=== PATIENT | male | born 1945 | race Caucasian/White ===

== ENCOUNTER 2021-11-08 10:19 | Outpatient (RCR) | payer MEDICARE, SELFPAY ==
--- OUTSIDE RECORDS SUMMARY | 2021-10-25 11:02 | XMS_ITS | Encounter Summary ---
:1945 Author Organization [facility] [place] [address] Care Team Providers Name Role Phone Jesusita Law MD Primary Care Provider [phone] Encounter Details Date Type Department Care Team Description 10/22/2021 Hospital Encounter XRay at [facility] [place] Dawson Coronary artery [address] [place] [address] Dr Murali MD disease involving [facility] [id number] [place] unstable angina [phone] CARDIOTHORACIC pectoris, SURGERY unspecified vessel [place], [place] or lesion type [address] Social History Tobacco Use Types Packs/Day Years Used Date Former Smoker Cigarettes Quit: 06/11/18 93 Smokeless Tobacco: Former User Q uit: 1970 Comments: quit in 1992 Alcohol Use Standard Drinks/Week Comments No 0 (1 standard drink = 0.6 oz pure alcoho l) QUIT IN 1978 Alcohol Habits Answer Date Recorded How often do you have a drink containing alcohol? Not asked How many drinks containing alcohol do you have on a Not aske d typical day when you are drinking? How often do you have six or more drinks on one occasion? No t asked Comment: QUIT IN 197809/26/2021 Sex Assigned at Date Recorded Not on file documented as of this encounter Medications at Time of Discharge Medication Sig Dispensed Refills Start Date End Date furosemide (Lasix) 20 mg Take 20 mg by mouth 2 0 10/21/2021 Tablet times daily. nitroGLYcerin Nitrostat 0.4 mg sublingual tablet 0 (Nitrostat) 0.[address] 1 tablet by sublingual route as needed. Tablet, Sublingual potassium chloride SA TAKE 2 TABLETS BY 0 022 (Klor-con) 10 mEq Tab MOUTH ONCE DAILY FOR Sust.Rel. POTASSIUM Particle/Crystal aspirin 81 mg Tablet, Take 81 mg by mouth 30 tablet 5 10/0404/02/2022 Chewable daily for 180 days. metoprolol tartrate Take 1 tablet by 90 tablet 2 10/03/2021 01/01/2022 (Lopressor) 50 mg Tablet mouth every 8 hours for 90 days. warfarin (Coumadin) 1 mg Take 1-5 tablets by 0 Tablet mouth daily. Take as instructed by your provider albuteroL 90 Inhale 1 puff into 0 mcg/actuation HFA the lungs as needed Aerosol Inhaler for Cough. triamcinolone (NASACORT 1 spray by Nasal 0 or NASACORT OTC) 55 mcg route daily. 55 mcg Aerosol, Bergoo spray 1 spray into both nostrils once a day as needed for nasal congestion acetaminophen (Tylenol) Take 500 mg by mouth 0 500 mg Tablet as needed for Pain. Take 1-2 tablet by mouth every 6 hours prn for aches Mometasone-Formoterol Inhale 2 puffs into 0 (Dulera) 200-5 the lungs 2 times mcg/actuation HFA daily. Aerosol Inhaler aclidinium bromide Inhale 400 mcg into 0 (Tudorza Pressair) 400 the lungs 2 times mcg/actuation Aerosol daily. Powdr Breath Activated metFORMIN XR (Glucophage Take 1,000 mg by 0 XR) 500 mg Tablet mouth 2 times daily. Sustained Release 24 hr tamsulosin (Flomax) 0.4 TAKE 1 CAPSULE BY 0 12/14 mg Capsule MOUTH TWICE DAILY gabapentin (Neurontin) Take 200 mg by mouth 0 04/2019 100 mg Capsule nightly as needed. gemfibrozil (LOPID) 600 Take 300 mg by mouth 0 mg Tablet 2 times daily. levothyroxine Take 125 mcg by mouth 0 (Synthroid) 100 mcg daily. Tablet pravastatin (PRAVACHOL) Take 80 mg by mouth 0 80 mg Tablet nightly. documented as of this encounter Plan of Treatment Upcoming Encounters Date Type Specialty Care Team Description 11/05/2021 Appointment Radiology 11/05/2021 Office Visit Cardiac Surgery Abdon Dawson MD [facility] [place], [place] [address] (Wo rk) documented as of this encounter Procedures Procedure Name Priority Date/Time Associated Diagnosis Comme nts XR CHEST PA AND Routine 10/22/2021 12:56 PM Coronary artery Re sults for this LATERAL EDT disease involving procedure are in augustine heart with the result s unstable angina section. pectoris, unspecified vessel or lesion type documented in this encounter Results XR Chest PA & Lateral (Generic) (10/22/2021 12:56 PM EDT) Anatomical Region Laterality Modality Chest N/A Digital Radiography Specimen (Source) Anatomical Location Collection Method / Collectio n Time Received Time / Laterality Volume Impressions 10/22/2021 3:37 PM EDT 1. ??Resolution of trace left pleural effusion. 2. ??No acute cardiopulmonary process. I have personally reviewed the image(s) and the resident's interpretation and agree with the findings, Marilin Rocha MD at 10/22/2021 3:37 PM Thank you for letting us participate in the care of this patient. ??If you are a health care provider and have any questi ons regarding this report, please contact the number below. ??For patients who have questions please contact the health child care development specialist that requested your imaging first. ? Narrative 10/22/2021 3:37 PM EDT EXAMINATION: XR CHEST PA AND LATERAL (GENERIC) CLINICAL HISTORY: s/p cabg TECHNIQUE: PA and lateral views of the chest, 2 celia ges COMPARISON: Chest radiograph 09/30/2021 FINDINGS: Intact median sternotomy cables. Surgica l clips project within the mediastinum. Left chest wall pulse generator with 2 i ntact leads in unchanged position within the right atrium and right ventricle. The cardiac, mediastinal, and hilar cont ours are normal. No pulmonary edema. No focal airspace opacities. No pleural eff usion. No pneumothorax. No displaced rib fractures. Procedure Note Marilin Rocha MD - 10/22/2021 EXAMINATION: XR CHEST PA AND LATERAL ([facility]) CLINICAL HISTORY: s/p cabg TECHNIQUE: PA and lateral views of the chest, 2 celia ges COMPARISON: Chest radiograph 09/30/2021 FINDINGS: Intact median sternotomy cables. Surgica l clips project within the mediastinum. Left chest wall pulse generator with 2 i ntact leads in unchanged position within the right atrium and right ventricle. The cardiac, mediastinal, and hilar cont ours are normal. No pulmonary edema. No focal airspace opacities. No pleural eff usion. No pneumothorax. No displaced rib fractures. IMPRESSION 1. Resolution of trace left pleural effu dago. 2. No acute cardiopulmonary process. I have personally reviewed the image(s) and the resident's interpretation and agree with the findings, Marilin Rocha MD at 10/22/2021 3:37 PM Thank you for letting us participate in the care of this patient. If you are a health care provider and have any questi ons regarding this report, please contact the number below. For patients w ho have questions please contact the health child care development specialist that requested your imaging first. 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
--- OUTSIDE RECORDS SUMMARY | 2021-10-25 11:02 | XMS_ITS | Encounter Summary ---
:1945 Author Organization [facility] [place] [address] Care Team Providers Name Role Phone Jesusita Law MD Primary Care Provider [phone] Reason for Referral Consultation (Routine) - Closed Specialty Diagnoses / Procedures Referred By Contact Refer red To Contact Diagnoses S/P CABG x 4 Abdon Arreguin MD Cardiac Rehab, [facility] CARDIOTHORACIC SURGE RY [address] [place], [place] [id number] [place] [id number] Fax: Referral ID Status Reason Start Date Expiration Date Visits V isits Requested Authorized [id number] Closed Consult, 10/03/2021 04/01/2022 36 36 Test & Treat Diagnostic Test (Routine) - Authorized Specialty Diagnoses / Procedures Referred By Contact Refer red To Contact Diagnoses Arterial embolism of left leg Sheila Thakkar, [facility] Vascular Lab 3v Procedures TONEY, legs, multiple levels [facility] [place] [place] [address] [place] [address] Referral ID Status Reason Start Expiration Visits Visits Date Date Requested Authorized [id number] Authorized Specialty 10/01/2021 10/01/2022 1 1 Service Requested ome Health Care (Routine) - Authorized Specialty Diagnoses / Procedures Referred By Contact Refer red To Contact Diagnoses S/P CABG x 4 Abdon Arreguin MD [facility] CARDIOTHORACIC SURGE RY [address] [place] [address] [place] [address] Fax: Referral ID Status Reason Start Date Expiration Visits Visits Date Requested Authorized [id number] Authorized Consult, 10/03/2021 04/01/2022 999 999 Test & Treat Reason for Visit Auth/Cert Specialty Diagnoses / Procedures Referred By Contact Refer red To Contact Diagnoses Coronary artery disease involving la posta heart with unstable angina pectoris, unspecified vessel or lesion type cad Abdon Arreguin MD [facility] Procedures PRO CABG, ARTERIAL, SINGLE PRO CABG, ARTERY-VEIN, THREE PRO ENDOSCOPY W/VIDEO-ASST VEIN HARVEST, CABG @CABG, USING ARTERIAL GRAFT;SINGLE ARTERIAL GRAFT (WRVU 33.75) @CABG; 3 VENOUS GRAFTS & ARTERIAL GRAFT (WRVU 10.49) [facility] ENDOSCOPIC HARVEST VEIN(S) FOR CABG (WRV U 0.31) [place] [address] Referral ID Status Reason Start Date Expiration Date Visits Requ ested Visits Authorized [id number] 1 1 Encounter Details Date Type Department Care Team Description 09/27/2021 - Hospital Encounter Cardiac Special Abdon Arreguin ronary artery disease involving la posta heart with unstable angina pectoris, unspecified vessel or lesion type; 10/03/2021 Care Unit Eveline Carrion MD S/P CABG x 4; [facility] (paro xysmal atrial fibrillation); Hospital CENTER Arterial embolism of left leg [facility] [address] [phone] Social History Tobacco Use Types Packs/Day Years [...] on file documented as of this encounter Last Filed Vital Signs Vital Sign Reading Time Taken Comments Blood Pressure 123/68 10/03/2021 2:11 PM EDT Pulse 98 10/03/2021 2:11 PM EDT Temperature 36.7 ??C (98.1 ??F) 10/03/2021 7:19 AM EDT Respiratory Rate 19 10/03/2021 10:53 AM EDT Oxygen Saturation 96% 10/03/2021 10:53 AM EDT Inhaled Oxygen Concentration - - Weight 114.7 kg (252 lb 13.9 oz) 10/03/2021 2:25 AM EDT Height 170.2 cm (5' 7) 09/27/2021 11:25 AM EDT Body Mass Index 39.6 09/27/2021 11:25 AM EDT documented in this encounter Discharge Summaries Leilani Be PA - 10/03/2021 3:24 PM EDT Inpatient - Discharge Summary Patient Name: Richy Street Patient Age: 76 y.o. Birthdate: 1945 Language: Beninese Race: White Ethnicity: Not nor Admit Date: 09/27/2021 Discharge Date: 10/03/2021 Attending Physician: Abdon Arreguin MD Follow-up Recommendations for Providers: ??? Please continue routine management of cardiovascular risk factors including blood pressure, lipids, glucose, etc. ??? Please note any changes to medications. ??? Patient to follow up with PCP, Jesusita Law MD, in 1-2 weeks. ??? Patient to follow up with Cardiac Surgeon, Dr. Abdon Arreguin, with a chest x-ray, EKG. ??? Patient to follow up with Vascular Surgery with TONEY study ??? Coumadin management to be resumed by PCP, Dr. Law. INR to be drawn tomorrow. Patient to stop lovenox once INR >1.8 (Please see below for details) Inpatient Provider Contact Information: [facility] Section of Cardiac Surgery [facility] [address] FAX [phone] Discharge Diagnoses (Hospital Problems) Primary Diagnoses: CAD Secondary Diagnoses: LLE Ischemia s/p urgent left SFA embolectomy Chronic AF Active Hospital Problems Diagnosis ??? Coronary artery disease involving la posta heart with unstable angina pectoris, unspecified vesselor lesion type Resolved Hospital Problems No resolved problems to display. Other Diagnoses (Chronic Problems): Active Non-Hospital Problems Diagnosis ??? ASCVD (arteriosclerotic cardiovascular disease) ??? PAF (paroxysmal atrial fibrillation) ??? Essential hypertension ??? Hyperlipidemia ??? Hypothyroidism ??? Presence of permanent cardiac pacemaker ??? Sick sinus syndrome Discharged to: Patient discharged to home Functional and Cognitive Status: stable Discharge Conditions/Prognosis: improving Past Medical History: Diagnosis Date ??? ASCVD (arteriosclerotic cardiovascular disease) 10/24/2015 ??? Coronary artery disease ??? CPAP (continuous positive airway pressure) dependence ??? Diabetes ??? Essential hypertension 10/24/2015 ??? Gastroesophageal reflux ??? Hyperlipidemia 10/24/2015 ??? Hypothyroidism 10/24/2015 ??? Irregular heart beat ??? Obstructive sleep apnea ??? PAF (paroxysmal atrial fibrillation) 10/24/2015 S/p cardioversion on sotolol Amiodarone discontinued due to side effects ??? Presence of permanent cardiac pacemaker 10/24/2015 ??? Sick sinus syndrome 10/24/2015 ??? Stroke Past Surgical History: Procedure Laterality Date ??? CORONARY ANGIOPLASTY WITH STENT PLACEMENT ??? PACEMAKER IMPLANT ? ? PRG CATH PLMT LEFT HEART CATH & ARTS W/INJ & ANGIO IMG S&I N/A 09/10/2021 CORONARY ANGIOGRAPHY; W LHC,POSSIBLE PCI performed by Vinod Hassan MD at [facility] CATH LABS ??? PRO CABG, ARTERIAL, SINGLE N/A 09/27/2021 @CABG, USING ARTERIAL GRAFT;SINGLE ARTERIAL GRAFT (WRVU 33.75) performed by Abdon Arreguin MD at [facility] MAIN OR ??? PRO CABG, ARTERY-VEIN, THREE N/A 09/27/2021 @CABG; 3 VENOUS GRAFTS & ARTERIAL GRAFT (WRVU 10.49) performed by Abdon Arreguin MD at [facility] MAIN OR ??? PRO EMBLC/THRMBC FEMORAL POPLITEAL AORTO-ILIAC ARTERY Left 09/29/2021 EMBOLECTOMY OR THROMBECTOMY, FEMOROPOPLITEAL, AORTOILIAC ARTERY BY LEG INCISION (WRVU 19.48) performed by Joselito Washburn MD at [facility] MAIN OR ??? PRO ENDOSCOPY W/VIDEO-ASST VEIN HARVEST, CABG N/A 09/27/2021 ENDOSCOPIC HARVEST VEIN(S) FOR CABG (WRVU 0.31) performed by Abdon Arreguin MD at [facility] MAIN OR Prior To Admission Medications Medications Prior to Admission Medication Sig Dispense Refill Last Dose ??? albuteroL 90 mcg/actuation HFA Aerosol Inhaler Inhale 1 puff into the lungs as needed for Cough.09/25/2021 at Unknown time ??? acetaminophen (Tylenol) 500 mg Tablet Take 500 mg by mouth as needed for Pain. Take 1-2 tablet by mouth every 6 hours prn for aches 09/26/2021 at Unknown time ??? dilTIAZem CD (Cardizem CD) 180 mg Capsule, Sust. Release 24 hr Take 180 mg by mouth daily. 09/26/2021 at Unknown time ??? Mometasone-Formoterol (Dulera) 200-5 mcg/actuation HFA Aerosol Inhaler Inhale 2 puffs into the lungs 2 times daily. Past Week at Unknown time ??? aclidinium bromide (Tudorza Pressair) 400 mcg/actuation Aerosol Powdr Breath Activated Inhale 400 mcg into the lungs 2 times daily. 09/25/2021 at Unknown time ??? [DISCONTINUED] potassium chloride (MICRO-K) 10 mEq Capsule, Sustained Release Take 20 mEq by mouth daily. 09/26/2021 at Unknown time ??? metFORMIN XR (Glucophage XR) 500 mg Tablet Sustained Release 24 hr Take 1,000 mg by mouth 2 times daily. 09/26/2021 at Unknown time ??? tamsulosin (Flomax) 0.4 mg Capsule TAKE 1 CAPSULE BY MOUTH TWICE DAILY 09/26/2021 at Unknown time ??? [DISCONTINUED] furosemide (Lasix) 20 mg Tablet Take 20 mg by mouth daily. 09/26/2021 at Unknown time ??? gemfibrozil (LOPID) 600 mg Tablet Take 300 mg by mouth 2 times daily. 09/26/2021 at Unknown time ??? levothyroxine (Synthroid) 100 mcg Tablet Take 125 mcg by mouth daily. 09/26/2021 at Unknown time ??? pravastatin (PRAVACHOL) 80 mg Tablet Take 80 mg by mouth nightly. 09/25/2021 at Unknown time ??? [DISCONTINUED] warfarin (COUMADIN) 1 mg Tablet Take 1 mg by mouth daily. Past Week at Unknown time ??? triamcinolone (NASACORT or NASACORT OTC) 55 mcg Aerosol, Portal 1 spray by Nasal route daily. 55 mcg spray 1 spray into both nostrils once a day as needed for nasal congestion More than a month at Unknown time ??? [DISCONTINUED] chlorhexidine (HIBICLENS) 4 % Liquid Apply topically daily as needed. Shower fromhead to toe with Chlorhexidine the night before surgery . 120 mL 0 Unknown at Unknown time ??? gabapentin (Neurontin) 100 mg Capsule Take 200 mg by mouth nightly as needed. More than a month at Unknown time ??? nitroGLYcerin (NITROSTAT) 0.4 mg Tablet, Sublingual Place 0.4 mg under the tongue every 5 minutes as needed for Chest pain. More than a month at Unknown time Updated Allergies/ADRs: Allergies Allergen Reactions ??? Lipitor [Atorvastatin] Other (See Comments) myositis ??? Amiodarone Bluish discoloration on face History of Presentation: Richy Street is a 76 y.o. year old male with increasing angina with minimal effort. Major Procedures/Operations: 09/27/21: CABGx4 (soto to LAD, SVG seq to OM and diag, SVG to RCA) 09/29/21 : Embolectomy of left superficial femoral artery via groin cutdown. Hospital Course: CAD s/p CABGx4 Richy Street was admitted to [facility] on 09/27/2021 via the Same Day Program. He was brought to the operating room where Dr. Abdon Arreguin performed coronary artery bypass grafting. He tolerated the procedure and was brought to the Cardiovascular Intensive Care Unit for recovery. He initially required the pharmacologic support of intravenous levophed. He was extubated from the ventilator on the day of surgery. All drips were weaned to off. Routine postoperative and home medications were started. Aspirin 81mg daily was started. Statin therapy was continued. He was started on beta blockade and this was optimized. Diuretics were started and he responded appropriately. Coumadin was resumed for his AF and LLE embolectomy. (see below) He was transferred to the Intermediate Cardiac Care Unit for continued rehabilitation. All tubes, lines, and epicardial pacing wires were removed without incident. He voided normally after his Mathis was removed. LLE Ischemia s/p urgent left SFA embolectomy Patient developed sudden onset LLE pain and paresthesia on POD2. Pulses were found to be absent. Vascular surgery was called and patient was taken to the OR urgently for embolectomy. Procedure was tolerated well and blood flow was restored without complication. He was started on heparin gtt (lovenox on discharge) which was bridged to coumadin. Lovenox can be discontinued once INR is >1.8. He will need follow up with Vascular Surgery in 2 weeks with ABIs. Chronic AF Patient remained in AF perioperatively. Decision was made to switch his rate control medication to metoprolol from diltiazem in the postop setting. He was resumed on his home coumadin for anticoagulation. He was seen by Physical Therapy and Cardiac Rehabilitation. Sternal precaution education was provided. His discharge plan at this time is to home. The remainder of his hospital course was uneventful and by postoperative day #6 he had met all criteria for discharge. Pain was controlled on oral medications. He had walked 5 minutes and gone up and down stairs. He was tolerating a regular diet and had a bowel movement. Vital Signs at Discharge: Last set of vitals: BP 123/68 Pulse 98 Temp 36.7 ??C (98.1 ??F) (Oral) Resp 19 Ht 170.2 cm (5' 7) Wt 114.7 kg (252 lb 13.9 oz) SpO2 96% BMI 39.60 kg/m?? Patient Vitals for the past 168 hrs: Weight 10/03/21 0225 114.7 kg (252 lb 13.9 oz) 10/02/21 0248 115.7 kg (255 lb 1.2 oz) 10/01/21 0146 113.6 kg (250 lb 7.1 oz) 09/30/21 0539 114.7 kg (252 lb 13.9 oz) 09/29/21 0413 113.3 kg (249 lb 12.5 oz) 09/28/21 0540 116.2 kg (256 lb 2.8 oz) 09/27/21 1125 114.1 kg (251 lb 8 oz) Current weight: 114.7 kg Admit/Preop weight: 114.1 kg Pertinent physical exam findings prior to discharge: General: In bed. NAD. Pleasant. Neuro: Awake and alert. Moves all extremities with equal strength. Sensation intact Lungs: Normal effort on NC, Decreased at the bases bilat Heart: irreg irreg, normal rate, Afib on tele. Abdomen: Soft, NTND Ext: warm, 1-2+ LE edema. +dopplerable DP/PT bilat LE Incisions: clean, dry, intact without erythema Important Studies and Lab Data: Lab Results Component Value Date WBC 10.0 (H) 10/03/2021 RBC 3.35 (L) 10/03/2021 HGB 9.8 (L) 10/03/2021 HCT 29.4 (L) 10/03/2021 PLATELET 238 10/03/2021 Recent Labs 10/03/21 0426 INR 1.2 Lab Results Component Value Date NA 138 09/30/2021 K 4.1 10/03/2021 CL 104 09/30/2021 CO2 24 09/30/2021 BUN 14 09/30/2021 CREATININE 0.71 (L) 09/30/2021 Pending Studies and Lab Data: None Immunizations Given this Hospitalization: There is no immunization history on file for this patient. Smoking Status at Discharge: Social History Tobacco Use Smoking Status Former Smoker ??? Types: Cigarettes ??? Quit date: 06/11/1992 ??? Years since quittin.3 Smokeless Tobacco Former User ??? Quit date: 1969 Tobacco Comment quit in 1992 STS Data Medications: Pre-operative beta bertha? Given Discharge beta bertha? Given Discharge lipid therapy? Given Discharge anti-platelet therapy? Given Discharge JOHNY or ARB restarted? Not indicated Discharge Medications: Your Medications New Medications Dose Details aspirin 81 mg Chew Take 81 mg by mouth daily for 180 days. Start taking on: October 04, 2021 81 mg Quantity: 30 tablet Refills: 5 benzonatate 200 mg Cap Commonly known as: TESSALON Take 1 capsule by mouth 3 times daily as needed for Cough for up to 5 days. 200 mg Quantity: 30 tablet Refills: 0 enoxaparin 120 mg/0.8 mL Syrg Commonly known as: Lovenox Inject 0.8 mLs subcutaneously every 12 hours for 3 days. Take until you INR is 1.8 or greater Start taking on: October 04, 2021 120 mg Quantity: 4.8 mL Refills: 0 metoprolol tartrate 50 mg Tab Commonly known as: Lopressor Take 1 tablet by mouth every 8 hours for 90 days. 50 mg Quantity: 90 tablet Refills: 2 Continued medications with new dosing Dose Details furosemide 20 mg Tab Commonly known as: Lasix Take 1 tablet by mouth 2 times daily for 7 days. What changed: when to take this 20 mg Quantity: 14 tablet Refills: 0 potassium chloride 10 mEq Cpsr Commonly known as: MICRO-K Take 1 capsule by mouth 2 times daily for 7 days. Take while on lasix What changed: ?? how much to take ?? when to take this ?? additional instructions 10 mEq Quantity: 14 capsule Refills: 0 warfarin 1 mg Tab Commonly known as: Coumadin Take 1-5 tablets by mouth daily. Take as instructed by your provider What changed: ?? how much to take ?? additional instructions 1-5 mg Refills: 0 Continued medications, unchanged Dose Details acetaminophen 500 mg Tab Commonly known as: Tylenol Take 500 mg by mouth as needed for Pain. Take 1-2 tablet by mouth every 6 hours prn for aches 500 mg Refills: 0 albuteroL 90 mcg/actuation Hfaa Inhale 1 puff into the lungs as needed for Cough. 1 puff Refills: 0 Dulera 200-5 mcg/actuation Hfaa Inhale 2 puffs into the lungs 2 times daily. Generic drug: Mometasone-Formoterol 2 puff Refills: 0 gabapentin 100 mg Cap Commonly known as: Neurontin Take 200 mg by mouth nightly as needed. 200 mg Refills: 0 gemfibroziL 600 mg Tab Commonly known as: Lopid Take 300 mg by mouth 2 times daily. 300 mg Refills: 0 levothyroxine 100 mcg Tab Commonly known as: Synthroid Take 125 mcg by mouth daily. 125 mcg Refills: 0 metFORMIN XR 500 mg Tablet sr Commonly known as: Glucophage XR Take 1,000 mg by mouth 2 times daily. 1,000 mg Refills: 0 pravastatin 80 mg Tab Commonly known as: PRAVACHOL Take 80 mg by mouth nightly. 80 mg Refills: 0 tamsulosin 0.4 mg Cap Commonly known as: Flomax TAKE 1 CAPSULE BY MOUTH TWICE DAILY Refills: 0 triamcinolone 55 mcg Spra Commonly known as: NASACORT or NASACORT OTC 1 spray by Nasal route daily. 55 mcg spray 1 spray into both nostrils once a day as needed for nasalcongestion 1 spray Refills: 0 Tudorza Pressair 400 mcg/actuation Aepb Inhale 400 mcg into the lungs 2 times daily. Generic drug: aclidinium bromide 400 mcg Refills: 0 STOPPED Medications chlorhexidine 4 % Liqd Commonly known as: HIBICLENS dilTIAZem CD 180 mg Cp24 Commonly known as: Cardizem CD nitroGLYcerin 0.4 mg Subl Commonly known as: Nitrostat Anticoagulation (???Blood Thinner?? ) Management upon Discharge: 1. Reason for anticoagulation therapy: chronic AF, LLE embolectomy 2. Your warfarin (Coumadin??) dosing instruction upon discharge is: (Follow this schedule below until your first INR check after discharge (usually in 2- 4 days): ??? Day of discharge (day #1): 5 mg ??? Resume your home coumadin, 2-4mg, dosing thereafter or as otherwise prescribed by your provider 3. Follow up INR is scheduled on: 10/04/21 4. INR Goal: 2.0-3.0 - Please continue Lovenox until INR is >1.8 5. Expected duration of treatment: lifelong 6. Provider/Team responsible for ongoing outpatient anticoagulation management: ??? Provider/Team/Clinic: Jeussita Law MD ? 7. If you have not received a call from your provider within 24 hrs of having your INR drawn, pleasecall your outpatient provider for further dose instructions. 8. Warfarin (Coumadin??) should be taken at the same time every day, preferably after 5:00 pm. 9. Please review your Warfarin (Coumadin??) Pack upon discharge. 10. If you will be on Warfarin (Coumadin??) indefinitely you should carry an identification card or wear a medical alert bracelet stating that you take Warfarin (Coumadin??). 11. Warfarin Education that was reviewed with you in the hospital: (please see your warfarin (Coumadin) packet for more information) ? Diet and medications can affect your INR ? Maintaining a diet with a consistent amount of vitamin K containing foods is important to keep your INR in range ? Avoid major changes in dietary habits ? Do not take or discontinue any prescription or ekig-fsu-mgzwlcc medications without asking your doctor or pharmacist ? Inform all your doctors, pharmacists and other healthcare providers that you take warfarin (Coumadin??) ? Warfarin (Coumadin??) increases your risk of bleeding ? If you experience any of these signs or symptoms of bleeding or blood clot please seek immediate medical attention: - increased pain, swelling or sudden shortness of breath - severe headache - dizziness - unusual bleeding or bruising - changes in urine or bowel movement color - coughing or spitting up of blood, or nosebleeds that do not stop or occur more often The following table shows your most recent INR results and Warfarin (Coumadin??) doses. Please bringthis to your first warfarin INR check appointment after discharge. Recent Labs 10/03/21 0426 10/02/21 0359 10/01/21 0325 09/30/21 0912 09/27/21 1637 INR 1.2 1.1 1.1 1.1 1.6 Dose 5 7.5 3 1 Please continue Lovenox injections until INR is > 1.8 Instructions Given to Patient at Discharge: Cardiac Surgery Discharge Instructions: Call your doctor if: You have a fever of greater than 101 degrees, shaking chills, if you develop redness or drainage from your incision sites, or if you have questions. Please call your surgeon's office if you have any discharge or drainage from your chest incision. Your surgeon, Dr. Abdon Arreguin and/or the Cardiac Surgery Physician Senior Restaurant Manager Team may be reached at . Weight: Weigh yourself daily. Please call the office if you notice increasing weight, increasing fluid retention (edema), and/or SOB. Sternal (breast bone) precautions: No lifting greater than 7-10 pounds; no pushing or pulling with upper extremities; no excessive chest stretching for the first 4 weeks. Further instructions will be given to you at your follow-up appointment. Activity level: Walk three times a day. You should continue to increase your walks by 1-2 minutes each day. It is expected that you will be walking 20-30 minutes twice a day within 3-4 weeks after discharge to home. Rest between activities and after meals. Use common sense, don't exhaust yourself. Biking: You may use a stationary bicycle whenever you are comfortable enough to permit this. Tightenthe resistance slightly. Increase the amount of time on the bicycle as you would do for your walks, a minute or two each day. No biking outside until after your return appointment with Dr. Abdon Arreguin. You may use a [place] [employer] or treadmill but avoid any pulling motion with the arms. Home activities: You may do light housework, e.g. dusting, setting the table, washing dishes, preparing a meal. Light carpentry and gardening are allowed. Avoid trying to open tight jars and stuck windows. No vacuuming, mopping, raking, shoveling, digging or hoeing until after your return visit with the surgeon. Sexual activity: You may engage in sexual activity when you feel ready. Use a position that protectsyour sternum (breastbone). Do not have your partner lie on your chest. Stairs: There are no restrictions on stair climbing. Use common sense. Don't exhaust yourself. Activities outside the home: After the first week home you may go out to dinner, visit friends, go to a movie, go to hindu, etc. Heavy activities: No hunting, skiing, jogging, snow shoveling, snowmobiling, lawn mowing, swimming, golf or tennis until after your return appointment with the surgeon. Do not ride motorcycles, [employer]'s tractors or horses. Avoid the use of a rifle with kickback against the shoulder for six months. Sleep: Try to establish normal sleep patterns. Long naps during the day may make it hard for you to sleep at night. Use the pain medication at bedtime for the first week at home. Smoking: It is very important that you not smoke after surgery. Smoking cessation education was provided as appropriate. If you need further assistance with this please call and you will be referred toa smoking cessation specialist. Medications: Take only those medications listed on your discharge information. Keep your pain under control so you can be active, do your coughing and breathing exercises and sleep. Contact us if the pain medication isn't working for you. Do not take any herbal preparations until after you return to see the surgeon. Special Physician Instructions: DO NOT USE ANY IBUPROFEN (ADVIL, MOTRIN, ETC) OR OTHER NSAIDS (NONSTEROIDAL ANTI-INFLAMMATORY DRUGS) FOR A TOTAL OF 10 DAYS AFTER SURGERY. PLEASE CONTACT THE CARDIOTHORACIC SURGERY OFFICE IF YOU HAVE QUESTIONS ABOUT WHICH DRUGS YOU SHOULD NOT USE. . Diet: You should follow a regular diet until your appetite returns to normal. At that point in time you should resume a low fat, low cholesterol, [employer] Diet. Driving: No driving until cleared by your surgeon. Avoid long trips if possible. If you must go on along trip, stop the car and walk every hour. Shower/Bath: You may shower daily. No baths, soaking, or swimming until cleared by your surgeon. Wound care: Wash your incisions daily with soap and rinse well, pat dry. Assess for any signs of infection such as increased redness, pain, warmth or drainage. Please call your surgeon's office if you have any discharge or drainage from your chest incision. If there is a lot of swelling, apply johny wraps during the day and remove at bedtime. Elevate your legs when you are sitting. MEDICATION REFILL REQUESTS - Please note that Cardiac Surgery will not maintain regular refill requests for your medications as these can change during and after your recovery while being managed by your PCP and/or Hvac Installation Technician. For future medication refills, please refer to your PCP and/or Hvac Installation Technician after your discharge from our service. Thank you REMOVE CHEST TUBE SUTURES ON OR AFTER 10/07/21 Home oxygen therapy: N/A - Use home CPAP device at night Follow up appointments: ??? You should follow up with your PCP, Jesusita Law MD, in 1-2 weeks. ??? You have an appointment with your Cardiac Surgeon, Dr. Abdon Arreguin, with a chest x-ray, EKG before your appointment. ??? Patient to follow up with Vascular Surgery with TONEY study Cardiac Rehabilitation: Richy Street was seen today regarding participation in the outpatient Phase 2 Cardiac Rehabilitation at [facility]. The patient agrees to a referral to this program. The referral will be sent at discharge and the patient should be contacted by the Program within 1- 2 weeks from discharge. Future Appointments and Orders Future Appointments and Orders Future Appointments Provider Department Dept Phone 10/22/2021 1:45 PM [facility] [place] [facility] [place] at: Computer Equipment Installer Area [phone] Please go to Computer Equipment Installer Area ([place] Location). 10/22/2021 2:30 PM Abdon Arreguin MD [place] [facility] [place] at: Computer Equipment Installer Area [phone] 11/05/2021 9:45 AM [facility] ED ROOM 1 [place] [facility] [place]rive at: Computer Equipment Installer Area [phone] Please go to Computer Equipment Installer Area ([place] Location). 11/05/2021 10:40 AM Abdon Arreguin MD [place] [facility] [place] at: Computer Equipment Installer Area [phone] Future Orders Complete By Expires TONEY, legs, multiple levels [VAS8 Custom] 10/08/2021 (Approximate) 11/01/2021 Process Instructions: There is no in-house vascular director of laboratory operations available on weeknights (5pm-8am), weekends, or holidays. IF THIS IS A REQUEST FOR AN EMERGENT STUDY DURING THOSE HOURS, please have the senior provider responsible for the patient page the Vascular Surgery Fellow/Senior Resident stonecutter assistant to discuss options. Scheduling Instructions: Questions: Indication for study/signs & symptoms: s/p LLE embolectomy Question to be answered: ?perfusion Pref[place] [facility] [place] Referral to Cardiac Rehab [[id number] Custom] As directed Process Instructions: If no progress note charted, please enter Clinical details in comments. Scheduling Instructions: Questions: My question or request is: CABG- cardiac rehab at [facility] Referral to Home Health [[id number] Custom] As directed Process Instructions: If no progress note charted, please enter Clinical details in comments. Scheduling Instructions: Comments: Please evaluate Richy Street for admission to Home Health. [address] [place] [phone] (home) Date of : 1945 DOCUMENTATION FOR VNA SERVICES (INCLUDING THOSE PATIENTS WITH MEDICARE COVERAGE REQUIRING HOME VNA SERVICES AND/OR HOSPICE SERVICES) PATIENT'S LOCATION: [address] [facility] [phone] (home) No relevant phone numbers on file. Consulting Technical Manager's Name: Self In discussion with the attending physician, it is certified that this patient is under their care and that they, or a Nurse Practitioner, or Physician Senior Restaurant Manager who is working directly with them, had aface to face encounter that meets the physician face to face encounter requirements with this patient on 10/03/21 The encounter with the patient was in whole, or in part, for the following medical condition, which is the primary reason for home health care services: s/p cabg In discussion with the provider, it is certified that, based on their findings, the following services are medically necessary for home health services. To provide the following care/treatments with the clinical findings supporting the need for servicesas follows: HOME HEALTH AGENCY: [facility] in [place], [place] and [phone] RN orders: Cardiopulmonary assessment, incisional assessment, assess vital signs, assessment of rehab progress, medication management and effectiveness, home safety evaluation. Please draw INR if indicated and send result to: Provider/Team/Clinic: Jesusita Law MD PT ORDERS: Continue rehab for endurance, gait stability and strength with mobility and transfers. Home safety evaluation. Home exercise program if appropriate. Start of Care Date: Patient will need to be seen next day for an INR check SPECIAL INSTRUCTIONS: For any follow up questions, needs, or issues please call the Cardiology Office at [phone] FOR MEDICARE ONLY: In discussion with the attending physician, it is certified that the clinical findings support that this patient is homebound i.e. absences from home require considerable and taxing effort due to: Restricted mobility and poor activity tolerance due to recent cardiac surgery. Patient requires assistance of another person to leave the home. Home Health agencies which cover the area of patient's residence have been reviewed, either verballyor in writing, and patient/family have chosen the agency as noted. Questions: Disciplines Requested: Nursing Physical Therapy Occupational Therapy Arrangements for VNA/home care: As above. VN RN OR PCP TO PLEASE REMOVE CHEST TUBE SUTURES ON OR AFTER 10/07/21 Signed: Leilani Be PA-C [facility] Section of Cardiac Surgery [facility] [phone] FAX [phone] Date: 10/03/2021 CC: Jesusita Law MD Unknown None documented in this encounter Discharge Instructions Patient InstructionsLeilani Be PA - 10/03/2021 11:28 AM EDT Anticoagulation (???Blood Thinner?? ) Management upon Discharge: Reason for anticoagulation therapy: chronic AF, LLE embolectomy Your warfarin (Coumadin??) dosing instruction upon discharge is: (Follow this schedule below until your first INR check after discharge (usually in 2- 4 days): Day of discharge (day #1): 5 mg Resume your home coumadin, 2-4mg, dosing thereafter or as otherwise prescribed by your provider Follow up INR is scheduled on: 10/04/21 INR Goal: 2.0-3.0 - Please continue Lovenox until INR is >1.8 Expected duration of treatment: lifelong Provider/Team responsible for ongoing outpatient anticoagulation management: Provider/Team/Clinic: Jesusita Law MD If you have not received a call from your provider within 24 hrs of having your INR drawn, please call your outpatient provider for further dose instructions. Warfarin (Coumadin??) should be taken at the same time every day, preferably after 5:00 pm. Please review your Warfarin (Coumadin??) Pack upon discharge. If you will be on Warfarin (Coumadin??) indefinitely you should carry an identification card or weara medical alert bracelet stating that you take Warfarin (Coumadin??). Warfarin Education that was reviewed with you in the hospital: (please see your warfarin (Coumadin) packet for more information) Diet and medications can affect your INR Maintaining a diet with a consistent amount of vitamin K containing foods is important to keep your INR in range Avoid major changes in dietary habits Do not take or discontinue any prescription or orwv-osz-tnsbbwl medications without asking your doctor or pharmacist Inform all your doctors, pharmacists and other healthcare providers that you take warfarin (Coumadin??) Warfarin (Coumadin??) increases your risk of bleeding If you experience any of these signs or symptoms of bleeding or blood clot please seek immediate medical attention: increased pain, swelling or sudden shortness of breath severe headache dizziness unusual bleeding or bruising changes in urine or bowel movement color coughing or spitting up of blood, or nosebleeds that do not stop or occur more often The following table shows your most recent INR results and Warfarin (Coumadin??) doses. Please bringthis to your first warfarin INR check appointment after discharge. Recent Labs 10/03/21 0426 10/02/21 0359 10/01/21 0325 09/30/21 0912 09/27/21 1637 INR 1.2 1.1 1.1 1.1 1.6 Dose 5 7.5 3 1 Please continue Lovenox injections until INR is > 1.8 Instructions Given to Patient at Discharge: Cardiac Surgery Discharge Instructions: Call your doctor if: You have a fever of greater than 101 degrees, shaking chills, if you develop redness or drainage from your incision sites, or if you have questions. Please call your surgeon's office if you have any discharge or drainage from your chest incision. Your surgeon, Dr. Abdon Arreguin and/or the Cardiac Surgery Physician Senior Restaurant Manager Team may be reached at . Weight: Weigh yourself daily. Please call the office if you notice increasing weight, increasing fluid retention (edema), and/or SOB. Sternal (breast bone) precautions: No lifting greater than 7-10 pounds; no pushing or pulling with upper extremities; no excessive chest stretching for the first 4 weeks. Further instructions will be given to you at your follow-up appointment. Activity level: Walk three times a day. You should continue to increase your walks by 1-2 minutes each day. It is expected that you will be walking 20-30 minutes twice a day within 3-4 weeks after discharge to home. Rest between activities and after meals. Use common sense, don't exhaust yourself. Biking: You may use a stationary bicycle whenever you are comfortable enough to permit this. Tightenthe resistance slightly. Increase the amount of time on the bicycle as you would do for your walks, a minute or two each day. No biking outside until after your return appointment with Dr. Abdon Arreguin. You may use a [place] or treadmill but avoid any pulling motion with the arms. Home activities: You may do light housework, e.g. dusting, setting the table, washing dishes, preparing a meal. Light carpentry and gardening are allowed. Avoid trying to open tight jars and stuck windows. No vacuuming, mopping, raking, shoveling, digging or hoeing until after your return visit with the surgeon. Sexual activity: You may engage in sexual activity when you feel ready. Use a position that protectsyour sternum (breastbone). Do not have your partner lie on your chest. Stairs: There are no restrictions on stair climbing. Use common sense. Don't exhaust yourself. Activities outside the home: After the first week home you may go out to dinner, visit friends, go to a movie, go to hindu, etc. Heavy activities: No hunting, skiing, jogging, snow shoveling, snowmobiling, lawn mowing, swimming, golf or tennis until after your return appointment with the surgeon. Do not ride motorcycles, ATCuil's tractors or horses. Avoid the use of a rifle with kickback against the shoulder for six months. Sleep: Try to establish normal sleep patterns. Long naps during the day may make it hard for you to sleep at night. Use the pain medication at bedtime for the first week at home. Smoking: It is very important that you not smoke after surgery. Smoking cessation education was provided as appropriate. If you need further assistance with this please call and you will be referred toa smoking cessation specialist. Medications: Take only those medications listed on your discharge information. Keep your pain under control so you can be active, do your coughing and breathing exercises and sleep. Contact us if the pain medication isn't working for you. Do not take any herbal preparations until after you return to see the surgeon. Special Physician Instructions: DO NOT USE ANY IBUPROFEN (ADVIL, MOTRIN, ETC) OR OTHER NSAIDS (NONSTEROIDAL ANTI-INFLAMMATORY DRUGS) FOR A TOTAL OF 10 DAYS AFTER SURGERY. PLEASE CONTACT THE CARDIOTHORACIC SURGERY OFFICE IF YOU HAVE QUESTIONS ABOUT WHICH DRUGS YOU SHOULD NOT USE. . Diet: You should follow a regular diet until your appetite returns to normal. At that point in time you should resume a low fat, low cholesterol, [employer] Diet. Driving: No driving until cleared by your surgeon. Avoid long trips if possible. If you must go on along trip, stop the car and walk every hour. Shower/Bath: You may shower daily. No baths, soaking, or swimming until cleared by your surgeon. Wound care: Wash your incisions daily with soap and rinse well, pat dry. Assess for any signs of infection such as increased redness, pain, warmth or drainage. Please call your surgeon's office if you have any discharge or drainage from your chest incision. If there is a lot of swelling, apply johny wraps during the day and remove at bedtime. Elevate your legs when you are sitting. MEDICATION REFILL REQUESTS - Please note that Cardiac Surgery will not maintain regular refill requests for your medications as these can change during and after your recovery while being managed by your PCP and/or Hvac Installation Technician. For future medication refills, please refer to your PCP and/or Hvac Installation Technician after your discharge from our service. Thank you REMOVE CHEST TUBE SUTURES ON OR AFTER 10/07/21 Home oxygen therapy: N/A - Use home CPAP device at night Follow up appointments: You should follow up with your PCP, Jesusita Law MD, in 1-2 weeks for you coumadin management You have an appointment with your Cardiac Surgeon, Dr. Abdon Arreguin, in 2 weeks and 4 weeks with a chest x-ray, EKG before your appointment. Patient to follow up with Vascular Surgery with TONEY study documented in this encounter Medications at Time of Discharge Medication Sig Dispensed Refills Start Date End Date potassium chloride SA TAKE 2 TABLETS BY 0 022 (Klor-con) 10 mEq Tab MOUTH ONCE DAILY FOR Sust.Rel. POTASSIUM Particle/Crystal aspirin 81 mg Tablet, Take 81 mg by mouth 30 tablet 5 10/0404/02/2022 Chewable daily for 180 days. metoprolol tartrate Take 1 tablet by mouth 90 tablet 2 09/1001/01/2022 (Lopressor) 50 mg every 8 hours for 90 Tablet days. warfarin (Coumadin) 1 Take 1-5 tablets by 0 10/03 mg Tablet mouth daily. Take as instructed by your provider albuteroL 90 Inhale 1 puff into the 0 mcg/actuation HFA lungs as needed for Aerosol Inhaler Cough. triamcinolone 1 spray by Nasal route 0 (NASACORT or NASACORT daily. 55 mcg spray 1 OTC) 55 mcg Aerosol, spray into both Portal nostrils once a day as needed for nasal congestion acetaminophen Take 500 mg by mouth 0 (Tylenol) 500 mg as needed for Pain. Tablet Take 1-2 tablet by mouth every 6 hours prn for aches Mometasone-Formoterol Inhale 2 puffs into 0 (Dulera) 200-5 the lungs 2 times mcg/actuation HFA daily. Aerosol Inhaler aclidinium bromide Inhale 400 mcg into 0 (Tudorza Pressair) 400 the lungs 2 times mcg/actuation Aerosol daily. Powdr Breath Activated metFORMIN XR Take 1,000 mg by mouth 0 (Glucophage XR) 500 mg 2 times daily. Tablet Sustained Release 24 hr tamsulosin (Flomax) TAKE 1 CAPSULE BY 0 0 0.4 mg Capsule MOUTH TWICE DAILY gabapentin (Neurontin) Take 200 mg by mouth 0 04/2019 100 mg Capsule nightly as needed. gemfibrozil (LOPID) Take 300 mg by mouth 2 0 600 mg Tablet times daily. levothyroxine Take 125 mcg by mouth 0 (Synthroid) 100 mcg daily. Tablet pravastatin Take 80 mg by mouth 0 (PRAVACHOL) 80 mg nightly. Tablet furosemide (Lasix) 20 Take 1 tablet by mouth 14 tablet 0 10/10/2021 mg Tablet 2 times daily for 7 days. potassium chloride Take 1 capsule by 14 capsule 0 10/03/2021 10/10/2021 (MICRO-K) 10 mEq mouth 2 times daily Capsule, Sustained for 7 days. Take while Release on lasix enoxaparin (Lovenox) Inject 0.8 mLs 4.8 mL 0 10/04/2021 10/07/2021 120 mg/0.8 mL Syringe subcutaneously every 12 hours for 3 days. Take until you INR is 1.8 or greater benzonatate (TESSALON) Take 1 capsule by 30 tablet 0 202110/08/2021 200 mg Capsule mouth 3 times daily as needed for Cough for up to 5 days. documented as of this encounter Progress Notes Esthela Vu RN - 10/03/2021 4:57 PM EDT Pt d/c'd home with , tele off, IV removed, d/c summary reviewed with pt and Fely Mejias, PT - 10/03/2021 11:51 AM EDT Physical Therapy Note Treatment Number PT: 2 Patient profile: Richy Garcia Violettecarla??is a 76 y.o.??male??with PMH of CAD with PCI to ostial RCA, perm AF, HTN, HLD, hypothyroid, PPM who is 2 Days Post-Op??s/p CABGx4. Interval History: Per PA note 10/03/21 Heparin gtt, coumadin dosing, INR remains subtherapeutic. Still unable to tolerate new home CPAP device, 2L NC placed overnight Social History: Home set-up: Lives with in 1-story home Stairs: 2 stairs up to deck, 1 additional stair into home (no railings) Baseline mobility: IND at baseline with mobility, ambulation, self-care, ADLs without assistive device. Sleeps in recliner chair. Equipment at home: CPAP, recliner chair Support at home: , local friends Precautions/Special Considerations: bleeding precautions, full code, sternal precautions Lines: cardiac monitoring, PIV Activity Orders: activity as tolerated Diet: carb control diet Mobility and Positioning Recommendations: ?? Pt to utilize FWW and supervision for ambulation and transfers with nursing staff ?? Please encourage up to chair for meal times as able. Subjective: There she is!! What do you want to do?! Objective: Patient seen for physical therapy and demonstrated the following: Pain: c/o some incisional discomfort Vital Signs: ? SpO2 briefly dropped into 80s during ambulation on RA, but likely error d/t pressing through finger on FWW; when cued to relax finger SpO2 lesly back up to 94% ? HR up to 110s with activity ?? Mental Status: alert, oriented to person, place, and time ?? Vision: wears glasses ?? Skin: sternal incision (C,D,I) ?? Musculoskeletal: ROM: MYRIAM LEs WFL Strength: MYRIAM LEs WFL Sensation: light touch intact Bed Mobility: not observed; Patient encountered in bedside recliner chair. Patient plans to sleep inrecliner chair once home so bed mobility was not a priority for this session. Transfers: Sit to Stand: supervision, using pillow to brace Stand to Sit: supervision, using pillow to brace Gait: Distance: 2 x 50 ft Device used: FWW Level of assist: supervision Gait mechanics: Presents with decreased tracey, decreased step length , limited foot clearance during swing phase and limited hip extension at terminal stance Stairs: Number of steps: ascended & descended 2 standard steps Device used: rail x1 (instructed to use for balance / not push or pull with arms) Level of assist: CGA x1 Balance: Sitting Static: good Sitting Dynamic: good Standing Static: good with FWW Standing Dynamic / Gait: fair+ with FWW Pt left in bedside recliner chair, with all needs met and with call hernandez in reach following visit. Assessment: Richy Street was seen today for physical therapy treatment. Patient tolerated therapy well and demonstrated improvements from his previous session. Notably Patient was able to perform all activities with less assist, increase gait distance, and progress to stair navigation. Additionally Patient's vitals remained significantly more stable with activity. Although Patient continues to display mildly decreased balance, decreased endurance & cardiovascular fitness, he has demonstratedhe is capable of performing functions at the level required to safely navigate his home. Patient also reports having ample support from and friends/neighbors need-be. Keeping this in mind, he willbe appropriate for d/c home once medically-ready. Discharge Recommendations: Based on the current findings, Anticipated Discharge Disposition (PT): home with home health when medically ready for hospital discharge. Consult Recommendations: No other consults recommended at this time. Equipment needs: Anticipated Equipment Needs at Discharge (PT): None Goals: To be achieved by 10/07/21: 1. Pt to consistently adhere to sternal precautions without requiring cues/assist from PT (MET) 2. Pt. to perform bed mobility with modified independence, adhering to sternal precautions Improved;plans on sleeping in recliner post-d/c 3. Pt. to perform jef-ib-qampl transfers with modified independence using a front wheeled walker andpillow. (MET) 4. Pt. to ambulate >100 feet with supervision using a a front wheeled walker. (MET) 5. Pt. to ambulate up/down >2 step/stairs using one hand hold with CGA. (MET) 6. Pt to demonstrate appropriate activity pacing without requiring cues/assist from PT (MET) 7. Pt to demonstrate appropriate use of incentive spirometer (MET) Plan: for therapy interventions as outlined in initial evaluation. Patient agrees with plan as stated. Time IN / OUT: 9545-2626 Total Minutes, Physical Therapy: 36 Fely Mejias PT , DPT Pager: [phone] Physical Therapy Inpatient Rehabilitation Department Leilani Be PA - 10/03/2021 9:58 AM EDT Cardiac Surgery Progress Note HPI Richy Street is a 76 y.o. male with PMH of CAD with PCI to ostial RCA, perm AF, HTN, HLD, hypothyroid, PPM who is 4 Days Post-Op s/p CABGx4 Events: Heparin gtt, coumadin dosing, INR remains subtherapeutic Still unable to tolerate new home CPAP device, 2L NC placed overnight S: Complaints of feeling claustrophobic with CPAP device. Reflecting on having a close friend pass away with breathing problems. Tolerating diet. +BM. Denies LLE pain or numbness O: Temp: [36.5 ??C (97.7 ??F)-36.9 ??C (98.4 ??F)] Heart Rate: [83-111] Resp: [15-26] BP: (99-130)/(58-84) SpO2: [94 %-99 %] Heart Rate from SpO2: [70 bpm-102 bpm] Physical Exam: General: In bed. NAD. Pleasant. Neuro: Awake and alert. Moves all extremities with equal strength. Sensation intact Lungs: Normal effort on NC, Decreased at the bases bilat Heart: irreg irreg, normal rate, Afib on tele. Abdomen: Soft, NTND Ext: warm, 1-2+ LE edema. +signals Incisions: clean, dry, intact Tubes/Lines/Drains: PIV I/O last 3 completed shifts: In: 3584.1 [P.O.:3050; I.V.:534.1] Out: 5015 [Urine:5015] A&P 76 y.o. male 4 Days Post-Op CABGx4. Course complicated by acute left leg ischemia s/p left SFA embolectomy with vascular. Perm afib rate control ongoing. No clot visualized in left atrium. FLORY (CPAP athome). Call resp therapy to adjust home CPAP device Cont metoprolol Dose coumadin. Continue heparin bridge until INR 1.8 Plan for discharge home tomorrow with lovenox pending INR Vascular signed off. Plan for 2 week f/u after discharge with TONEY study Ambulate Neuro: APAP 1g q6h, lido patch, dilaudid PRN CV: metop 50 TID, statin, gemfibrozil Pulm: room air, pulm toilet, symbicort, scheduled duoneb GI: carb controlled diet, protonix, RBOs : flomax, voiding Renal: lasix 20IV BID, K replacement Heme: ASA 81, Coumadin with heparin bridge for chronic Afib/SFA embolus ID: no issues Endo: DMII, SSI, home metformin. Cont synthroid Dispo: ICCU, Full code Discussed with attending surgeon on AM rounds BEN Jung 10/03/2021 Leilani Be PA - 10/02/2021 10:13 AM EDT Cardiac Surgery Progress Note HPI Richy Street is a 76 y.o. male with PMH of CAD with PCI to ostial RCA, perm AF, HTN, HLD, hypothyroid, PPM who is 3 Days Post-Op s/p CABGx4 Events: Metoprolol increased for rate control of chronic AF Heparin gtt therapeutic, coumadin dosing Unable to tolerate new home CPAP device, 2L NC placed overnight S: Feeling well, feeling blessed. Tolerating diet. +BM. Denies LLE pain or numbness, no SOB. He has a new home CPAP device and the airflow level is too high to tolerate. He had no issues with his olddevice. O: Temp: [36.5 ??C (97.7 ??F)-36.9 ??C (98.4 ??F)] Heart Rate: [84-100] Resp: [17-27] BP: (102-126)/(57-75) SpO2: [95 %-99 %] Heart Rate from SpO2: [88 bpm-103 bpm] Physical Exam: General: In bed. NAD. Pleasant. Neuro: Awake and alert. Moves all extremities with equal strength. Sensation intact Lungs: Normal effort on NC, Decreased at the bases bilat Heart: irreg irreg, normal rate, Afib on tele. Abdomen: Soft, NTND Ext: warm, 1-2+ LE edema. +signals Incisions: clean, dry, intact Tubes/Lines/Drains: PIV I/O last 3 completed shifts: In: 2861.1 [P.O.:2620; I.V.:241.1] Out: 5950 [Urine:5950] A&P 76 y.o. male 3 Days Post-Op CABGx4. Course complicated by acute left leg ischemia s/p left SFA embolectomy with vascular. Perm afib rate control ongoing. No clot visualized in left atrium. FLORY (CPAP athome). Resp therapy to adjust home CPAP device Cont metoprolol Dose coumadin. Continue heparin bridge until INR 1.8 Vascular signed off. Plan for 2 week f/u after discharge with TONEY study Ambulate Neuro: APAP 1g q6h, lido patch, dilaudid PRN CV: metop 50 TID, statin, gemfibrozil Pulm: room air, pulm toilet, symbicort, scheduled duoneb GI: carb controlled diet, protonix, RBOs : flomax, voiding Renal: lasix 20IV BID, K replacement Heme: ASA 81, Coumadin with heparin bridge for chronic Afib/SFA embolus ID: no issues Endo: DMII, SSI, home metformin. Cont synthroid Dispo: ICCU, Full code Discussed with attending surgeon on AM rounds BEN Jung 10/02/2021 Arlene Simms I, OT - 10/02/2021 10:05 AM EDT Occupational Therapy Evaluation Patient profile: Per note: Richy Street is a 76 y.o. male with PMH of CAD with PCI to ostial RCA, perm AF, HTN, HLD, hypothyroid, PPM who is 3 Days Post- Op s/p CABGx4 Past Medical History: Diagnosis Date ??? ASCVD (arteriosclerotic cardiovascular disease) 10/24/2015 ??? Coronary artery disease ??? CPAP (continuous positive airway pressure) dependence ??? Diabetes ??? Essential hypertension 10/24/2015 ??? Gastroesophageal reflux ??? Hyperlipidemia 10/24/2015 ??? Hypothyroidism 10/24/2015 ??? Irregular heart beat ??? Obstructive sleep apnea ??? PAF (paroxysmal atrial fibrillation) 10/24/2015 S/p cardioversion on sotolol Amiodarone discontinued due to side effects ??? Presence of permanent cardiac pacemaker 10/24/2015 ??? Sick sinus syndrome 10/24/2015 ??? Stroke Past Surgical History: Procedure Laterality Date ??? CORONARY ANGIOPLASTY WITH STENT PLACEMENT ??? PACEMAKER IMPLANT ? ? PRG CATH PLMT LEFT HEART CATH & ARTS W/INJ & ANGIO IMG S&I N/A 09/10/2021 CORONARY ANGIOGRAPHY; W LHC,POSSIBLE PCI performed by Vinod Hassan MD at [facility] CATH LABS ??? PRO CABG, ARTERIAL, SINGLE N/A 09/27/2021 @CABG, USING ARTERIAL GRAFT;SINGLE ARTERIAL GRAFT (WRVU 33.75) performed by Abdon Arreguin MD at [facility] MAIN OR ??? PRO CABG, ARTERY-VEIN, THREE N/A 09/27/2021 @CABG; 3 VENOUS GRAFTS & ARTERIAL GRAFT (WRVU 10.49) performed by Abdon Arreguin MD at [facility] MAIN OR ??? PRO EMBLC/THRMBC FEMORAL POPLITEAL AORTO-ILIAC ARTERY Left 09/29/2021 EMBOLECTOMY OR THROMBECTOMY, FEMOROPOPLITEAL, AORTOILIAC ARTERY BY LEG INCISION (WRVU 19.48) performed by Joselito Washburn MD at [facility] MAIN OR ??? 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 Objective: Seen today for OT evaluation. Cognitive Status/Behavior: ?? Behavior / Mood: alert and cooperative ?? Alert and oriented to: person, place, time and situation ?? Follows commands: multi step and 100% of the time ?? Attention: WFL ?? Safety awareness: WFL Vision & Perception: ?? WNL/WFL ?? 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 Communication: WFL Range of motion, strength, coordination: Bilateral UEs are within functional limitations LE limitations: WFL Sensation: no report of numbness or tingling Activities of Daily Living: Self-feeding: independent Grooming: independent Dressing: anticipate supervision; gave pt hand out for dressing tasks; educated on sternal precautions during ADL tasks Bathing: anticipate mod I Toileting: Transfer: SBA FWW Hygiene: anticipate mod I Functional Mobility: Supine to sit: not assessed; pt reports he has a recliner chair at home; he reports he will be sleeping in it Sit to stand: SBA; min verbal cues for sternal precautions; use of heart pillow Ambulation: 150ft SBA FWW; 3 standing rest breaks Stand to sit: SBA; use of heart pillow Sit to supine: pt left in recliner w all needs met and call hernandez within reach Balance: Sitting balance: good Standing balance: good w FWW Vitals: 100-110s bpm w activity Pain: no report of pain Skin: sternal incision c/d/i Education: patient have been educated on Role of occupational therapy/rehabilitation, Transfers, Assistive device/technique, Adaptive equipment training, ADL, Positioning, Safety, Precautions/Protocol,Functional Mobility, Activity pacing/Energy conservation, Home Management, Balance, Recommendations and Discharge planning and verbalizes understanding. Patient status, treatment, and mobility recommendations discussed with nursing. Assessment: Pt has been seen for occupational therapy evaluation. Richy Street presents with thefollowing performance skill deficits and client factors: decreased activity tolerance, decreased flexibility/ROM and precautions/bracing. These performance deficits have led to activity limitations andparticipation restrictions in the following areas of occupation: dressing, bathing, grooming, toileting, transfers/mobility, home management, leisure, driving and community mobility. Pt tolerated OT eval. Educated pt on sternal precautions during ADL/IADL tasks; reviewed education handout w pt. Pt demo nstrates good sternal precaution techniques during sit to stands on and off the toilet and toleratedlonger distances w SBA FWW and 3 standing rest breaks. Anticipate pt would benefit from 1-2 more times of skilled OT and d/c home once medically ready w OT and assistance from if needed. Pt would benefit from further inpatient OT interventions to address performance deficits and maximize participation and independence with occupations of daily living. Equipment Recommendations: Equipment Needs Upon Discharge (OT): shower chair, walker, front wheeled Anticipated Discharge Disposition (OT): home with home health Other Recommendations: ?? Utilize upright chair position using bed features or transfer to recliner chair as appropriate with SBA FWW, ambulate as tolerated ?? Encourage participation in ADL's by providing set up A on tray table and physical assist only as needed Other Recommendations: No other consults recommended at this time Goals: To be achieved by 10/09/21. Pt will complete LB dressing w mod I, AE as needed Pt will complete functional transfers/ambulation to participate in ADL/IADL tasks w mod I Pt will demonstrate 2 energy conservation techniques to utilize during ADL/IADL tasks w mod I Pt will demonstrate and verbalize understanding of activity limitations during ADL/IADL tasks w no verbal cues from OT Plan: OT: Therapy Frequency (OT): 1-2 more times Planned OT interventions: Role of occupational therapy/rehabilitation, Transfers, Assistive device/technique, Adaptive equipment training, ADL, Positioning, Safety, Precautions/Protocol, Functional Mobility, Activity pacing/Energy conservation, Home Management, Balance, Recommendations and Discharge planning. Total Minutes, Occupational Therapy: 40 (1 low complexity eval (8096-6124)) OT Evaluation Code Rationale: ?? Diagnosis & Pertinent Co-Morbidities affecting Plan of Care: see PMHx ?? Occupational Profile & Client History: Brief Expanded Extensive x ?? Assessment of Occupational Performance: 1-3 performance deficits x 3-5 performance deficits 5 + performance deficits ?? Clinical Decision Making: Low Moderate High x Clinical decision making of low complexity using standardized patient assessment instrument and measurable assessment of functional outcome. Pager: [phone] Arlene Simms OT 10/02/2021 Occupational Therapy Rehabilitation Department Fely Mejias, PT - 10/01/2021 3:33 PM EDT Physical Therapy Evaluation Patient profile: Richy Street is a 76 y.o. male with PMH of CAD with PCI to ostial RCA, perm AF,HTN, HLD, hypothyroid, PPM who is 2 Days Post-Op s/p CABGx4. Patient with the following active problems: Past Medical History: Diagnosis Date ??? ASCVD (arteriosclerotic cardiovascular disease) 10/24/2015 ??? Coronary artery disease ??? CPAP (continuous positive airway pressure) dependence ??? Diabetes ??? Essential hypertension 10/24/2015 ??? Gastroesophageal reflux ??? Hyperlipidemia 10/24/2015 ??? Hypothyroidism 10/24/2015 ??? Irregular heart beat ??? Obstructive sleep apnea ??? PAF (paroxysmal atrial fibrillation) 10/24/2015 S/p cardioversion on sotolol Amiodarone discontinued due to side effects ??? Presence of permanent cardiac pacemaker 10/24/2015 ??? Sick sinus syndrome 10/24/2015 ??? Stroke Past Surgical History: Procedure Laterality Date ??? CORONARY ANGIOPLASTY WITH STENT PLACEMENT ??? PACEMAKER IMPLANT ? ? PRG CATH [facility] LEFT HEART CATH & ARTS W/INJ & ANGIO IMG S&I N/A 09/10/2021 CORONARY ANGIOGRAPHY; W LHC,POSSIBLE PCI performed by Vinod Hassan MD at [facility] CATH LABS ??? PRO CABG, ARTERIAL, SINGLE N/A 09/27/2021 @CABG, USING ARTERIAL GRAFT;SINGLE ARTERIAL GRAFT (WRVU 33.75) performed by Abdon Arreguin MD at [facility] MAIN OR ??? PRO CABG, ARTERY-VEIN, THREE N/A 09/27/2021 @CABG; 3 VENOUS GRAFTS & ARTERIAL GRAFT (WRVU 10.49) performed by Abdon Arreguin MD at [facility] MAIN OR ??? PRO EMBLC/THRMBC FEMORAL POPLITEAL AORTO-ILIAC ARTERY Left 09/29/2021 EMBOLECTOMY OR THROMBECTOMY, FEMOROPOPLITEAL, AORTOILIAC ARTERY BY LEG INCISION (WRVU 19.48) performed by Joselito Washburn MD at [facility] MAIN OR ??? PRO ENDOSCOPY W/VIDEO-ASST VEIN HARVEST, CABG N/A 09/27/2021 ENDOSCOPIC HARVEST VEIN(S) FOR CABG (WRVU 0.31) performed by Abdon Arreguin MD at [facility] MAIN OR Active Non-Hospital Problems Diagnosis ??? ASCVD (arteriosclerotic cardiovascular disease) ??? PAF (paroxysmal atrial fibrillation) ??? Essential hypertension ??? Hyperlipidemia ??? Hypothyroidism ??? Presence of permanent cardiac pacemaker ??? Sick sinus syndrome Social History: Home set-up: Lives with in 1-story home Stairs: 2 stairs up to deck, 1 additional stair into home (no railings) Baseline mobility: IND at baseline with mobility, ambulation, self-care, ADLs without assistive device. Sleeps in recliner chair. Equipment at home: CPAP, recliner chair Support at home: , local friends Precautions/Special Considerations: bleeding precautions, full code, sternal precautions Lines: cardiac monitoring, PIV Activity Orders: activity as tolerated Diet: carb control diet Mobility and Positioning Recommendations: ?? Pt. to utilize FWW and 1-assist for ambulation and transfers with nursing. ?? PLEASE encourage/assist with log-roll technique for bed mobility ?? Please encourage up to chair for meal times as able. ?? Pt encouraged to ambulate frequently with staff, getting into the bathroom for toileting and walking out in the vivas >/= 3 times daily as able. Subjective: ???I think I might have my friends come over to help haul me out of bed and my chair?? Objective: Pt seen for evaluation today. Pain: no c/o pain during session Vital Signs: ?? HR 120s-130s for most of session, briefly up to 150 when ambulating back to bed, in Afib (RN aware) ?? SpO2 consistently >90% at rest & with activity on room air Mental Status: alert, oriented to person, place, and time Vision: wears glasses Skin: sternal incision (C,D,I) Musculoskeletal: ROM: MYRIAM LEs WFL Strength: MYRIAM LEs WFL Sensation: light touch intact Bed Mobility: not observed; Patient already up in bedside recliner chair at start of session Transfers: Sit to Stand: Daniela x1 progressing to CGA x1 from bed & recliner chair, verbal cues to scoot to edge of chair then perform forward trunk lean, holding onto pillow during transfer Stand to Sit: Daniela x1 to assist with slow, eccentric descent Gait: ?? 2 x 8 ft between chair & toilet with SBA x1 and FWW ?? 1 x 25 [address] into hallway with CGA x1 and FWW; further gait deferred d/t tachycardia ?? Gait characterized by decreased tracey, decreased step length, lateral trunk lean towards stancelimb, decreased foot clearance, decreased push-off during terminal stance Balance: Sitting Static: good Sitting Dynamic: good Standing Static: fair+ with FWW Standing Dynamic / Gait: fair+ with FWW, able to don facemask in standing without exhibiting loss ofbalance & no [id number] observed during gait Therapeutic Exercise: 6 repetitions of incentive spirometry, verbal cues to blow all air out prior to starting and focus on going slow & steady and floating blue bead. Able to achieve ~1250. Education: patient has been educated on Bed mobility, Transfers, Stairs, Safety , Precautions/protocol, Gait , Activity pacing/Energy conservation, Role of therapy and Discharge planning and needs reinforcement. Patient status, treatment, and mobility recommendations discussed with nursing. Assessment: Richy Street was seen today for physical therapy evaluation. Patient tolerated therapy well but our session was limited by tachycardia. Patient also presents with decreased endurance, decreased ROM (d/t precautions), and decreased balance. As such, Patient will benefit from additional IP PT in- house to continue progressing function & reiterating safety concepts. Additionally, recommend frequent mobilization & ambulation with nursing & mobility test technician staff. Discharge Recommendations: Based on the current findings, Anticipated Discharge Disposition (PT): home with home health when medically ready for hospital discharge. Consult Recommendations: Occupational therapy consult Equipment needs: Anticipated Equipment Needs at Discharge (PT): to be determined Goals: To be achieved by 10/07/21: 1. Pt to consistently adhere to sternal precautions without requiring cues/assist from PT 2. Pt. to perform bed mobility with modified independence, adhering to sternal precautions 3. Pt. to perform [id number] transfers with modified independence using a front wheeled walker andpillow. 4. Pt. to ambulate >100 feet with supervision using a a front wheeled walker. 5. Pt. to ambulate up/down >2 step/stairs using one hand hold with CGA. 6. Pt to demonstrate appropriate activity pacing without requiring cues/assist from PT 7. Pt to demonstrate appropriate use of incentive spirometer Plan: for therapy including balance training, bed mobility training, gait training, home exercise program, patient/family education, stair training and transfer training. Patient/family understand and agree with plan as stated above. 2017 PT Evaluation Code Rationale: ?? Diagnosis & Pertinent Co-Morbidities, personal factors, and present illness affecting Plan ofCare: (see above); Additional personal factors or co- morbidities that impact plan: ?? Total # of Factors: 0 1-2 3+ x ?? Examination of body system impairments, functional limitations and behaviors, and/or participation restrictions. Addressing 1-2 elements Addressing 3 + elements x Addressing 4 + elements ?? Clinical presentation: See assessment above. Stable/Uncomplicated Evolving/Fluctuating Symptoms Unstable/Unpredictable x ?? Clinical decision making of moderate complexity based on pt's functional performance as outlined in this evaluation. Time IN / OUT: 5292-9369 Total Minutes, Physical Therapy: 40 Fely Mejias DPT Pager: [phone] Physical Therapy Inpatient Rehabilitation Department KateSam PA - 10/01/2021 11:46 AM EDT Cardiac Surgery Progress Note HPI Richy Street is a 76 y.o. male with PMH of CAD with PCI to ostial RCA, perm AF, HTN, HLD, hypothyroid, PPM who is 2 Days Post-Op s/p CABGx4 Events: Heparin increased to therapeutic. Started coumadin TTE negative for LA thrombus / embolic source of SFA clot Mathis out, voided Ambulated with PT. Significant tachycardia in perm Afib, HR up to 150 with mobility Weaned to RA. Refused cpap overnight for FLORY. Wore 2L +BM S: Sore everywhere. Ambulating ok. +DUVALL. Tolerating diet. +BM. Denies LLE pain or numbness. O: Temp: [36.6 ??C (97.9 ??F)-36.9 ??C (98.4 ??F)] Heart Rate: [92-159] Resp: [13-29] BP: (111-151)/(65-71) SpO2: [94 %-99 %] Heart Rate from SpO2: [80 bpm-115 bpm] Physical Exam: General: In chair. NAD. Pleasant. Neuro: Awake and alert. Moves all extremities with equal strength. Sensation intact Lungs: Normal effort on NC, Decreased at the bases bilat Heart: irreg irreg, normal rate, Afib on tele. Abdomen: Soft, NTND Ext: warm, 1-2+ LE edema. 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 male 2 Days Post-Op CABGx4. Course complicated by acute left leg ischemia s/p left SFA embolectomy with vascular. Perm afib rate control ongoing. No clot visualized in left atrium. FLORY noncompliant with CPAP. Increase BB to 50 tid Give magnesium, replace K Dose coumadin. Continue heparin bridge Vascular following. Appreciate recc's. Restart home metformin Neuro: APAP 1g q6h, lido patch, dilaudid PRN CV: metop 50 TID, statin, gemfibrozil Pulm: room air, pulm toilet, symbicort, scheduled duoneb GI: carb controlled diet, protonix, RBOs : flomax Renal: lasix 20IV BID Heme: ASA 81, Coumadin with heparin bridge for chronic Afib/SFA embolus ID: no issues Endo: DMII, SSI, restart home metformin. Cont synthroid Dispo: ICCU, Full code Discussed with attending surgeon on AM rounds BEN LIMON 10/01/2021 Renetta Guzman RN - 10/01/2021 11:12 AM EDT The Patient has been provided a list of Home Health Agencies/DME vendors which serve their preferredgeographic area. A letter describing our affiliations was reviewed with them and they were educated about their right to choose where referrals are placed. Provided patient with [facility] Star Quality Rating for Home care Patient requests referral to : [facility] [place] [address] and Expected date of discharge: 10/04/2021. Referral routed to the Change Control Analyst for matching with agency/vendor and to provide any required information. Tatiana Lopez RN - 10/01/2021 6:17 AM EDT OUTCOME EVALUATION NOTE: OUTCOME SUMMARY: Pt A&Ox4. 1A w/ walker. See flowsheet for VS and I/O. Patient denies pain or SOB. Pt refused CPAP overnight, requested 2L NC instead. Aflutter in tele, HR 82-117. Heparin gtt maintained per protocol. Call hernandez within reach. PLAN MOVING FORWARD: Continue pathway D/C planning as appropriate Fely Mejias PT - 09/30/2021 4:34 PM EDT 09/30/21 0324 Evaluation & Treatment Document Type contact Total Minutes, Physical Therapy 0 Comment, Session Not Performed PT orders received & chart reviewed. Attempted to see Patient this AM but he was off floor for x-ray. Stopped by in the afternoon 2x but per RN was tachycardic, recommended to hold PT until HR is better managed by medications. Will plan to evaluate Patient tomorrow 09/30/21. Leilani Be PA - 09/30/2021 8:06 AM EDT Cardiac Surgery Progress Note HPI Richy Street is a 76 y.o. male with PMH of CAD with PCI to ostial RCA, perm AF, HTN, HLD, hypothyroid, PPM who is 1 Day Post-Op s/p CABGx4 Events: - Acute LLE ischemia s/p left SFA embolectomy with vascular - Chronic AF rate controlled - 2L NC S: Patient very grateful for care. LLE without further numbness, denies pain. Denies SOB, dizziness, nausea. No BM yet. O: Temp: [36.2 ??C (97.2 ??F)-36.8 ??C (98.2 ??F)] Heart Rate: [78-101] Resp: [14-35] BP: (104-154)/(55-88) SpO2: [91 %-98 %] Heart Rate from SpO2: [74 bpm-104 bpm] Physical Exam: General: In bed. NAD. Pleasant. Neuro: Awake and alert. Moves all extremities with equal strength. Lungs: Normal effort on NC, Decreased at the bases bilat Heart: irreg irreg, Afib on tele. Abdomen: Soft, NTND, + bowel sounds. Ext: warm, 1+ LE edema. Incisions: clean, dry, intact without erythema Tubes/Lines/Drains:Mathis, PIV I/O last 3 completed shifts: In: 2060.2 [P.O.:965; I.V.:1095.2] Out: 3177 [Urine:2825; Blood:352] A&P 76 y.o. male 1 Day Post-Op s/p CABGx4. Extubated. HDS off vasoactive drips. Course complicated by acute left leg ischemia s/p left SFA embolectomy with vascular. Follow up on vascular recs Heparin gtt - titrate to therapeutic dose Bridge to coumadin TTE to f/o cardioembolic source Remove mathis once mobile Bowel regimen Wean O2 Neuro: APAP 1g q6h, dilaudid PRN CV: metop 25 TID, statin, gemfibrozil Pulm: NC to keep spo2>92%, pulm toilet/inhalers GI: Regular diet, protonix, RBOs : Mathis, flomax Renal: UOP adequate, lasix 20IV BID Heme: ASA 81, Coumadin for chronic Afib/SFA embolus ID: periop abx complete Endo: DMII, SSI, holding home metformin. Cont synthroid Dispo: ICCU, Full code Discussed with attending surgeon on AM rounds BEN Jung 09/30/2021 Good Brock MD - 09/29/2021 8:00 PM EDT Surgery Post Op Check Richy Street is a 76 y.o. male status post embolectomy of left superficial femoral artery via groin cutdown 09/30/21. S: No nausea/vomiting, chest pain, SOB, pain well controlled, offers no complaints. Resting comfortably in bed. O: Temp: [36.4 ??C (97.5 ??F)-36.7 ??C (98.1 ??F)] Heart Rate: [85-94] Resp: [15-35] BP: (104-127)/(55-88) SpO2: [95 %-97 %] Heart Rate from SpO2: [74 bpm-98 bpm] I/O last 3 completed shifts: In: 3204.3 [P.O.:2045; I.V.:1159.3] Out: 2182 [Urine:1740; Other:90; Blood:352] I/O this shift: In: 185.2 [P.O.:150; I.V.:35.2] Out: 1125 [Urine:1125] UOP since OR: 1125cc Physical Exam General: NAD, resting comfortably HEENT: PERRL, anicteric sclerae CVS: Regular rate Pulm: Breathing comfortably on RA Abd: soft, non tender, non distended Ext: RLE: No edema. Skin warm and pink. No tissue loss. Brisk capillary refill. Doppler signals intact. LLE: L groin vascular access site with dressing in place, c/d/i, no evidence of hematoma. No edema. Skin warm and pink. No tissue loss. Brisk capillary refill. Doppler signals intact, DP>PT. Neuro: CN 2-12 grossly intact, nonfocal, moving all extremities. Sensation intact in extremities bilaterally symmetric. Motor function intact in extremities, bilaterally symmetric. AP Richy Street is a 76 y.o. male status post embolectomy of left superficial femoral artery viagroin cutdown. - currently in stable condition and recovering well - pain well controlled - hemodynamically stable - UOP adequate - begin heparin 500u/hr - keep LLE warm Good Brock MD Vascular Surgery 09/30/21 Marianne Lozada RN - 09/29/2021 4:04 PM EDT 1530 Pt arrived to PACU drowsy, maintaining airway, simple mask. Connected to monitor, alarms set and reviewed. VSS. Art line transduced. LLE cold, pt has movement and sensation. +DP PT signals. L groin site dressing CDI without hematoma. Per Vascular sign out, plan to restart Heparin gtt in 2 hours if no hematoma at groin site. Bedrest. 1600 Open eyes to voice, oriented x4. Denies pain/nausea. 1625 Report given to CSCU RN. Sam Kate PA - 09/29/2021 12:47 PM EDT Pt developed new LLE numbness and discomfort this morning following rounds. Expressing pain on outeredge of LLE extending up to hip with associated paresthesias. Unable to find PT/DP/popliteal signals. +weak femoral pulse. +DP/PT signals in right foot. Left foot slightly colder than right. Both feet p roberto with 2+ edema. Bilateral LE strength equal. Denies history of claudication or numbness. +h/o TIAs. Pt in Afib (no recent conversion to SR) with coumadin on hold for surgery with plans to restart tonight. Vascular surgery called given concern for acute arterial embolus/thrombus. After discussion plan made to heparinize and take to the OR for likely LLE embolectomy. BEN LIMON 09/29/2021 Davie Galindo PA - 09/29/2021 7:23 AM EDT Cardiac Surgery Progress Note HPI Richy Street is a 76 y.o. male with PMH of CAD with PCI to ostial RCA, perm AF, HTN, HLD, hypothyroid, PPM who is 2 Days Post-Op s/p CABGx4 Events: Pathway CTs out Metop 25 No lasix. S: Pain better today. OOB to chair. abulated Tolerating sips and chips. + flatus O: Temp: [36.6 ??C (97.9 ??F)-36.9 ??C (98.4 ??F)] Heart Rate: [72-94] Resp: [14-25] BP: (101-153)/(57-79) SpO2: [93 %-98 %] Heart Rate from SpO2: [74 bpm-90 bpm] Physical Exam: General: Sitting in chair. NAD. Pleasant. Neuro: Awake and alert. Moves all extremities with equal strength. Lungs: Normal effort on NC, Decreased at the bases bilat Heart: irreg irreg, S1S2, Afib on tele. Abdomen: Soft, NTND, + bowel sounds. Ext: warm, trace LE edema. Incisions: dressing CDI without drainage or crepitus. Tubes/Lines/Drains:Mathis, PIV I/O last 3 completed shifts: In: 2875.2 [P.O.:2145; I.V.:730.2] Out: 2016 [Urine:1665; Drains:27; Other:325] Net +1.4L A&P 76 y.o. male 2 Days Post-Op s/p CABGx4. Extubated. HDS off vasoactive drips. Recovering well from surgery. Increase metop to 25''' Lasix 20IV Mathis staus another day sched nebs Start Coumadin for chronic AFib Neuro: APAP 1g q6h, dilaudid PRN CV: metop 25', statin Pulm: NC to keep spo2>92%, pulm toilet GI: Regular diet, protonix, RBOs : Mathis, flomax Renal: UOP adequate, lasix 20IV Heme: ASA 81, Coumadin for chronic AFib ID: periop abx complete Endo: No DM, synthroid Dispo: ICCU, Full code Discussed with attending surgeon on AM rounds BEN To 09/29/2021 Davie Galindo PA - 09/28/2021 11:55 AM EDT Cardiac Surgery Progress Note HPI Richy Street is a 76 y.o. male with PMH of CAD with PCI to ostial RCA, perm AF, HTN, HLD, hypothyroid, PPM who is 1 Day Post-Op s/p CABGx4 Events: From OR on levo Extubated Weaned off levo S: Pain difficult. OOB to chair. Tolerating sips and chips. O: Temp: [35.2 ??C (95.4 ??F)-37.5 ??C (99.5 ??F)] Heart Rate: [75-93] Resp: [14-26] BP: (153)/(66) SpO2: [98 %-100 %] Heart Rate from SpO2: [69 bpm-95 bpm] Physical Exam: General: Sitting in chair. NAD. Pleasant. Neuro: Awake and alert. Moves all extremities with equal strength. Lungs: Normal effort on NC, Decreased at the bases bilat Heart: RRR, S1S2, Afib on tele. Abdomen: Soft, NTND, hypoactive bowel sounds. Ext: warm, trace LE edema. Incisions: dressing CDI without drainage or crepitus. Tubes/Lines/Drains: RIJ, A-line, Mediastinal CT, TPW, Mathis, PIV Hemodynamics: CI 2.2 CVP 9 Drips: fent@25 I/O last 3 completed shifts: In: 1472.3 [P.O.:100; I.V.:677.3; Blood:695] Out: 3005 [Urine:2165; Drains:27; Other:320; Blood:493] Mediastinal CTs - 270 Since OR, SS, no air leak Net: -1.5L A&P 76 y.o. male 1 Day Post-Op s/p CABGx4. Extubated. HDS off vasoactive drips. Recovering well from surgery. CTs out Metop sched nebs No lasix Coumadin tomorrow for chronic AFib Neuro: wean fent, APAP 1g q6h, dilaudid PRN CV: metop 25, statin Pulm: NC to keep spo2>92%, pulm toilet GI: NPO diet, protonix, RBOs : Mathis flomax Renal: UOP adequate, no lasix Heme: ASA 81, Coumadin POD2 for AFib ID: periop abx complete Endo: No DM, synthroid Dispo: CVCC, Full code, Transfer Discussed with attending surgeon on AM rounds BEN To 09/28/2021 Cherrie Dunn RRT - 09/27/2021 8:36 PM EDT Protocol: CTICU CT ICU SBT: Yes SBT: Passed Vent Settings:Ventilator Mode: PS/CPAP PEEP Set: 5 FiO2: 40 % PSV: 5 Ventilator Measurements: Resp: 26 Vt Spontaneous: 456 Ve: 8.3 SpO2: 100 % EtCO2: 33 mmHg Airway: 7.5 @ 22 cm at the Teeth. Skin Integrity: WDL MDI Inhaled Medications: Albuterol MDI Q4 Symbicort BID Breath Sounds: clear Secretions:Small thick white Assessment / Events / Plan of the Day: Patient received on SIMV but placed on CTICU SBT at 19:19. PASSED CT ICU SBT on PS 5 PEEP +5 and 40% FIO2. AB.31 37 116 18 post 30 minutes. Patient had positive cuff leak. 20:00 Patient EXTUBATE TO 5 LPM NC Tolerated well with good voicing and cough. Plan to wean FIO2 as tolerated. CHERRIE DUNN RRT Antwon White - 09/27/2021 6:02 PM EDT Respiratory Care Mechanical Ventilation Note Protocol: CTICU SBT: Yes SPO2 Goal: Saturation Goal: > 92% Vent Mode: SIMV VC +PS Circuit: HME Settings: Tidal Volume Set: 530 Resp. Rate Set: (S) 16 PS Above PEEP (cm H2O): 5 Set PEEP (cm H2O): 5 Set FiO2: (S) 40 % VT/K Inspiratory Time: 1.01 Sec(s) Measurements: Tidal Volume Measured Exp.: 528 Resp: 14 Peak Inspiratory Pressure: 23 Mean Airway Pressure (cm H2O): 9.4 Minute Ventilation Total Exhaled (L/min): 7.4 Plateau Pressure (cm H2O): 18 SpO2: 100 % ETCO2 (mmHg): 30 mmHg Airway: Size: 7.5 ETT Depth: 22 cm @ teeth. Cuff Pressure: 28 mmHg Medications: Albuterol MDI Q4 Symbicort BID Assessment: Received pt from OR orally intubated. Placed on Servo-U ventilator in SIMV Vol + PS w/ settings: FiO2: 100% PEEP: 5 RR: 14 VT: 520 ml (8 ml/kg) ABG Drawn @ 1758: 7.29/44/462/21 FiO2 weaned to 40%. Increased RR to 16. Plan: Continue to manage pt in CTICU protocol. Respiratory Pager# [phone] documented in this encounter H&P Notes Abdon Arreguin MD - 09/27/2021 11:48 AM EDT No interval change, pt ready for surgery. Source Note - Abdon Arreguin MD - 09/27/2021 11:43 AM EDT Cardiothoracic Surgery Consultation Richy Street is seen at the request of Dr. Santana for the evaluation of CAD. HPI: Richy Street is a 76 y.o. year old male with increasing angina with minimal effort. Problem List: Patient Active Problem List Diagnosis ??? Coronary artery disease involving la posta heart with unstable angina pectoris, unspecified vesselor lesion type ??? ASCVD (arteriosclerotic cardiovascular disease) Progressive CCS Class III angina Cardiac catheterization 10/24/15: mild diffuse CAG LAD, LCX, long 99% ost %CA with L->R collaterals S/p PCI 10/24/15: 909% ost RCA MODESTO x2, complicated by VF, defibrillated. Dobutamine MIBI ETT 10/05/15: PHR 136, no angin aor EKG changes, small infero- septal and inferior ischemia, LVEF 65% ??? PAF (paroxysmal atrial fibrillation) Now in permanent a fib- anticoagulation and rate control S/p cardioversion on sotolol Sotolol stopped due to DUVALL Amiodarone discontinued due to side effects ??? Essential hypertension ??? Hyperlipidemia ??? Hypothyroidism ??? Presence of permanent cardiac pacemaker Jul 2012 ??? Sick sinus syndrome Past Medical History: Past Medical History: Diagnosis Date ??? ASCVD (arteriosclerotic cardiovascular disease) 10/24/2015 ??? Coronary artery disease ??? CPAP (continuous positive airway pressure) dependence ??? Diabetes ??? Essential hypertension 10/24/2015 ??? Gastroesophageal reflux ??? Hyperlipidemia 10/24/2015 ??? Hypothyroidism 10/24/2015 ??? Irregular heart beat ??? Obstructive sleep apnea ??? PAF (paroxysmal atrial fibrillation) 10/24/2015 S/p cardioversion on sotolol Amiodarone discontinued due to side effects ??? Presence of permanent cardiac pacemaker 10/24/2015 ??? Sick sinus syndrome 10/24/2015 ??? Stroke Past Surgical History: Past Surgical History: Procedure Laterality Date ??? CORONARY ANGIOPLASTY WITH STENT PLACEMENT ??? PACEMAKER IMPLANT ? ? PRG CATH PLMT LEFT HEART CATH & ARTS W/INJ & ANGIO IMG S&I N/A 09/10/2021 CORONARY ANGIOGRAPHY; W C,POSSIBLE PCI performed by Vinod Hassan MD at [facility] Family History: History reviewed. No pertinent family history. Social History: Social History Socioeconomic History ??? Marital status: Spouse name: None ??? Number of children: None ??? Years of education: None ??? Highest education level: None Occupational History ??? None Tobacco Use ??? Smoking status: Former Smoker Types: Cigarettes Quit date: 06/11/1992 Years since quittin.3 ??? Smokeless tobacco: Former User Quit date: 1969 ??? Tobacco comment: quit in 1992 Substance and Sexual Activity ??? Alcohol use: No Comment: QUIT IN 1978 ??? Drug use: No ??? Sexual activity: None Other Topics Concern ??? None Social History Narrative ??? None Social Determinants of Health Financial Resource Strain: Not on file Food Insecurity: Not on file Transportation Needs: Not on file Physical Activity: Not on file Housing Stability: Not on file Review of Systems: Constitutional - no weakness, fatigue, fevers HEENT - no visual changes; no hearing changes; no recent URI sx Neck - no new pain, limitation of motion Cardiovascular - angina Pulmonary - no dyspnea, cough, bronchitis, pneumonias GI - no abdominal pain, constipation, diarrhea - no frequency, nocturia, dysuria Musculoskeletal - no muscle pain, new limitation of motion Extremities - no edema Neuro - no confusion, weakness, syncope, paresthesias Hematologic - no bruising, excessive bleeding Allergies: Allergies Allergen Reactions ??? Lipitor [Atorvastatin] Other (See Comments) myositis ??? Amiodarone Bluish discoloration on face Meds: Outpatient Medications Marked as Taking for the 09/27/21 encounter (Hospital Encounter) Medication Sig Dispense Refill ??? albuteroL 90 mcg/actuation HFA Aerosol Inhaler Inhale 1 puff into the lungs as needed for Cough. ??? acetaminophen (Tylenol) 500 mg Tablet Take 500 mg by mouth as needed for Pain. Take 1-2 tablet by mouth every 6 hours prn for aches ??? dilTIAZem CD (Cardizem CD) 180 mg Capsule, Sust. Release 24 hr Take 180 mg by mouth daily. ??? Mometasone-Formoterol (Dulera) 200-5 mcg/actuation HFA Aerosol Inhaler Inhale 2 puffs into the lungs 2 times daily. ??? aclidinium bromide (Tudorza Pressair) 400 mcg/actuation Aerosol Powdr Breath Activated Inhale 400 mcg into the lungs 2 times daily. ??? potassium chloride (MICRO-K) 10 mEq Capsule, Sustained Release Take 20 mEq by mouth daily. ??? metFORMIN XR (Glucophage XR) 500 mg Tablet Sustained Release 24 hr Take 1,000 mg by mouth 2 times daily. ??? tamsulosin (Flomax) 0.4 mg Capsule TAKE 1 CAPSULE BY MOUTH TWICE DAILY ??? furosemide (Lasix) 20 mg Tablet Take 20 mg by mouth daily. ??? gemfibrozil (LOPID) 600 mg Tablet Take 300 mg by mouth 2 times daily. ??? levothyroxine (Synthroid) 100 mcg Tablet Take 125 mcg by mouth daily. ??? pravastatin (PRAVACHOL) 80 mg Tablet Take 80 mg by mouth nightly. ??? warfarin (COUMADIN) 1 mg Tablet Take 1 mg by mouth daily. Physical Exam: Patient Vitals for the past 24 hrs: Temp Pulse Resp BP SpO2 O2 Device 09/27/21 1125 36.1 ??C (97 ??F) 78 16 148/80 98 % RA @LASTENCWT@ Constitutional:Well appearing in no acute distress. Skin: Warm, well perfused. HEENT: within normal limits. NC/AT EOMI Neck: supple, no JVD, no bruit. Heart: regular rate and rhythm, without murmurs. Lungs: clear bilaterally. Abdomen: soft, nontender, active bowel sounds, no masses noted. Extremities: full range of motion; no clubbing, cyanosis, or edema. Neuro exam: Alert and oriented x 3. Strength grossly normal. Diagnositcs: Recent Labs 09/24/21 1306 WBC 8.0 NA 141 K 4.4 CL 102 CO2 27 GLUCOSE 143 CATH: severe 3vd please see report, I have reviewed the images with Dr. Hassan Assessment and Plan: Richy Street severe symptomatic 3vd We had a long discussion regarding the risks and benefits of surgery. The risks include but are not limited to stroke, damage to any organ (heart, lung, liver, kidneys, brain, etc.), infection, need for blood transfusion with the concomitant risks of AIDS and hepatitis, renal failure resulting in dialysis, prolonged respiratory failure requiring mechanical ventilation, graft failure, and the possibility of . He seems to understand and wishes to proceed. We plan surgery. Abdon Arreguin MD - 09/27/2021 11:43 AM EDT Cardiothoracic Surgery Consultation Richy Street is seen at the request of Dr. Santana for the evaluation of CAD. HPI: Richy Street is a 76 y.o. year old male with increasing angina with minimal effort. Problem List: Patient Active Problem List Diagnosis ??? Coronary artery disease involving la posta heart with unstable angina pectoris, unspecified vesselor lesion type ??? ASCVD (arteriosclerotic cardiovascular disease) Progressive CCS Class III angina Cardiac catheterization 10/24/15: mild diffuse CAG LAD, LCX, long 99% ost %CA with L->R collaterals S/p PCI 10/24/15: 909% ost RCA MODESTO x2, complicated by VF, defibrillated. Dobutamine MIBI ETT 10/05/15: PHR 136, no angin aor EKG changes, small infero- septal and inferior ischemia, LVEF 65% ??? PAF (paroxysmal atrial fibrillation) Now in permanent a fib- anticoagulation and rate control S/p cardioversion on sotolol Sotolol stopped due to DUVALL Amiodarone discontinued due to side effects ??? Essential hypertension ??? Hyperlipidemia ??? Hypothyroidism ??? Presence of permanent cardiac pacemaker Jul 2012 ??? Sick sinus syndrome Past Medical History: Past Medical History: Diagnosis Date ??? ASCVD (arteriosclerotic cardiovascular disease) 10/24/2015 ??? Coronary artery disease ??? CPAP (continuous positive airway pressure) dependence ??? Diabetes ??? Essential hypertension 10/24/2015 ??? Gastroesophageal reflux ??? Hyperlipidemia 10/24/2015 ??? Hypothyroidism 10/24/2015 ??? Irregular heart beat ??? Obstructive sleep apnea ??? PAF (paroxysmal atrial fibrillation) 10/24/2015 S/p cardioversion on sotolol Amiodarone discontinued due to side effects ??? Presence of permanent cardiac pacemaker 10/24/2015 ??? Sick sinus syndrome 10/24/2015 ??? Stroke Past Surgical History: Past Surgical History: Procedure Laterality Date ??? CORONARY ANGIOPLASTY WITH STENT PLACEMENT ??? PACEMAKER IMPLANT ? ? PRG CATH PLID LEFT HEART CATH & ARTS W/INJ & ANGIO IMG S&I N/A 09/10/2021 CORONARY ANGIOGRAPHY; W [facility],POSSIBLE PCI performed by Viond Hassan MD at [facility] Family History: History reviewed. No pertinent family history. Social History: Social History Socioeconomic History ??? Marital status: Spouse name: None ??? Number of children: None ??? Years of education: None ??? Highest education level: None Occupational History ??? None Tobacco Use ??? Smoking status: Former Smoker Types: Cigarettes Quit date: 06/11/1992 Years since quittin.3 ??? Smokeless tobacco: Former User Quit date: 1969 ??? Tobacco comment: quit in 1992 Substance and Sexual Activity ??? Alcohol use: No Comment: QUIT IN 1978 ??? Drug use: No ??? Sexual activity: None Other Topics Concern ??? None Social History Narrative ??? None Social Determinants of Health Financial Resource Strain: Not on file Food Insecurity: Not on file Transportation Needs: Not on file Physical Activity: Not on file Housing Stability: Not on file Review of Systems: Constitutional - no weakness, fatigue, fevers HEENT - no visual changes; no hearing changes; no recent URI sx Neck - no new pain, limitation of motion Cardiovascular - angina Pulmonary - no dyspnea, cough, bronchitis, pneumonias GI - no abdominal pain, constipation, diarrhea - no frequency, nocturia, dysuria Musculoskeletal - no muscle pain, new limitation of motion Extremities - no edema Neuro - no confusion, weakness, syncope, paresthesias Hematologic - no bruising, excessive bleeding Allergies: Allergies Allergen Reactions ??? Lipitor [Atorvastatin] Other (See Comments) myositis ??? Amiodarone Bluish discoloration on face Meds: Outpatient Medications Marked as Taking for the 09/27/21 encounter (Hospital Encounter) Medication Sig Dispense Refill ??? albuteroL 90 mcg/actuation HFA Aerosol Inhaler Inhale 1 puff into the lungs as needed for Cough. ??? acetaminophen (Tylenol) 500 mg Tablet Take 500 mg by mouth as needed for Pain. Take 1-2 tablet by mouth every 6 hours prn for aches ??? dilTIAZem CD (Cardizem CD) 180 mg Capsule, Sust. Release 24 hr Take 180 mg by mouth daily. ??? Mometasone-Formoterol (Dulera) 200-5 mcg/actuation HFA Aerosol Inhaler Inhale 2 puffs into the lungs 2 times daily. ??? aclidinium bromide (Tudorza Pressair) 400 mcg/actuation Aerosol Powdr Breath Activated Inhale 400 mcg into the lungs 2 times daily. ??? potassium chloride (MICRO-K) 10 mEq Capsule, Sustained Release Take 20 mEq by mouth daily. ??? metFORMIN XR (Glucophage XR) 500 mg Tablet Sustained Release 24 hr Take 1,000 mg by mouth 2 times daily. ??? tamsulosin (Flomax) 0.4 mg Capsule TAKE 1 CAPSULE BY MOUTH TWICE DAILY ??? furosemide (Lasix) 20 mg Tablet Take 20 mg by mouth daily. ??? gemfibrozil (LOPID) 600 mg Tablet Take 300 mg by mouth 2 times daily. ??? levothyroxine (Synthroid) 100 mcg Tablet Take 125 mcg by mouth daily. ??? pravastatin (PRAVACHOL) 80 mg Tablet Take 80 mg by mouth nightly. ??? warfarin (COUMADIN) 1 mg Tablet Take 1 mg by mouth daily. Physical Exam: Patient Vitals for the past 24 hrs: Temp Pulse Resp BP SpO2 O2 Device 09/27/21 1125 36.1 ??C (97 ??F) 78 16 148/80 98 % RA @LASTENCWT@ Constitutional:Well appearing in no acute distress. Skin: Warm, well perfused. HEENT: within normal limits. NC/AT EOMI Neck: supple, no JVD, no bruit. Heart: regular rate and rhythm, without murmurs. Lungs: clear bilaterally. Abdomen: soft, nontender, active bowel sounds, no masses noted. Extremities: full range of motion; no clubbing, cyanosis, or edema. Neuro exam: Alert and oriented x 3. Strength grossly normal. Diagnositcs: Recent Labs 09/24/21 1306 WBC 8.0 NA 141 K 4.4 CL 102 CO2 27 GLUCOSE 143 CATH: severe 3vd please see report, I have reviewed the images with Dr. Hassan Assessment and Plan: Richy Street severe symptomatic 3vd We had a long discussion regarding the risks and benefits of surgery. The risks include but are not limited to stroke, damage to any organ (heart, lung, liver, kidneys, brain, etc.), infection, need for blood transfusion with the concomitant risks of AIDS and hepatitis, renal failure resulting in dialysis, prolonged respiratory failure requiring mechanical ventilation, graft failure, and the possibility of . He seems to understand and wishes to proceed. We plan surgery. documented in this encounter Miscellaneous Notes Care Management Discharge - Stacey Xiong RN - 10/03/2021 2:32 PM EDT CARE MANAGEMENT FINAL DISCHARGE NOTE Chart reviewed, care reviewed with primary team and at interdisciplinary rounds. Patient is medically ready for discharge to home with VNA. Needs for Transition of Care: Plan for discharge is: Home w/ Services Outpatient Agency/Support Group Needs: Homecare agency Home Health Services: Registered Nurse, Occupational Therapy, Physical Therapy Agency Referrals & Follow-up Care: Contact information for follow-up [facility], [address] [address] Transportation: family or friend will provide Functional status prior to admission: Independent Home Environment: Others in the home: spouse. Current Living Arrangements: home/apartment/condo. Accessibility Concerns:one floor. Current Functional Ability: Assistive Equipment DME used at home: none DME Needed at Discharge: Patient is insured through: Primary Insurance: MEDICARE Payor: MEDICARE / Plan: MEDICARE PART A & B / Product Type: *No Product type* / Secondary Insurance: [id number] LIABILITY Prescription Coverage: Yes This plan was formulated with input from patient and team. All are in agreement with plan. I have verbally reviewed Medicare Discharge Rights with patient. Patient verbalizes understanding ofright to appeal this discharge if feeling not medically ready. Offered a copy of this letter. Stacey GAMEZ RN Phone: [phone] Pager: [phone] Consult Note - Krista Godoy RN - 10/02/2021 11:04 AM EDT [facility] Richy Street was seen today regarding participation in the outpatient Phase 2 Cardiac Rehabilitation at [facility]. The patient agrees to a referral to this program. The referral will be sent at discharge and the patient should be contacted by the Program within 1- 2 weeks from discharge. Care Management - Renetta Guzman RN - 10/02/2021 10:44 AM EDT OFFICE OF CARE MANAGEMENT PROGRESS NOTE LOS: Hospital Day 5 days Chart reviewed, care reviewed with primary team and at interdisciplinary rounds. Patient continues to meet inpatient level of care related to: Will be here until INR is therapeutic Functional status prior to admission: Independent Home Environment: Others in the home: spouse. Current Living Arrangements: home/apartment/condo. Accessibility Concerns: one floor. Current Functional Ability: Stand by assist DME used at home: none DME Needed at Discharge: None anticipated Patient is insured through: Primary Insurance: MEDICARE Payor: MEDICARE / Plan: MEDICARE PART A & B / Product Type: *No Product type* / Secondary Insurance: [employer] Last Physical Therapy Recommendation: home with home health with to be determined Plan for discharge is: Is home with VNA services Agency Referrals: [facility] in [place], [place] and [phone] Transportation: Family Barriers to discharge: None Plan going forward: Care Management will continue to follow and assist with discharge planning and coordination of care as indicated. Anticipated Date of Discharge: 10/06/2021 Office of Care Management Surgery Team [employer]erial [employer]iser [email or web address] Pager #[phone] Consult Note - Sheila Thakkar MD - 10/01/2021 10:13 PM EDT [facility] Department of Surgery Inpatient Consult Note History of Present Illness: Richy Street is a 76 y.o. male with a history of atrial fibrillationon coumadin, CAD, CPAP, T2DM, HTN, hypothryoidism, FLORY, now 2 days s/p CABG x4, who we have been consulted on for acute loss of pulses and signals in LLE. Patient reports that he was in bed this morning when he suddenly had severe pain in his left foot. The pain came on suddenly. He tried touching his left foot with his right foot and noticed that he couldn't feel it. He called his nurse right away. He previously had palpable PT/DP pulses bilaterally but were no longer palpable in left nor were they obtained by doppler. Loss of sensation is limited to his left foot, though has pain in his left calf. Denies history of peripheral vascular disease. Denies prior symptoms of claudication. Last took warfarin on Thursday. Has not been on DVT ppx. Has been out of bed 3 or 4 times since surgery. Interval: Patient OOB, feeling well, no complaints related to leg. Physical Exam: Temp: [36.6 ??C (97.9 ??F)-36.7 ??C (98.1 ??F)] Heart Rate: [93-109] Resp: [18-27] BP: (115-151)/(65-73) SpO2: [95 %-99 %] Heart Rate from SpO2: [88 bpm-115 bpm] Gen: NAD, A0x3 HEENT: NCAT CVS: RR Pulm: CTAB, breathing comfortably on RA GI: nontender; nondistended MSK: WWP, no edema Vascular: Dressing down today, incision c/d/i with skin glue. DP/PT signal on LLE; motor/sensory intact. Neuro: moving all 4 extremities spontaneously, nonfocal Data independently reviewed: Recent Results (from the past 24 hour(s)) Potassium Result Value Ref Range Potassium 3.4 (L) 3.5 - 5.0 mmol/L Prothrombin Time Result Value Ref Range PT 12.4 9.4 - 12.5 sec INR 1.1 Hemogram Result Value Ref Range WBC 12.8 (H) 4.0 - 9.5 x10(3)/mcL RBC 3.36 (L) 4.58 - 5.54 x10(6)/mcL Hemoglobin 9.8 (L) 13.7 - 16.5 g/dL Hematocrit 29.4 (L) 40.5 - 48.5 % MCV 87.5 82.9 - 93.1 fL MCH 29.2 27.5 - 32.1 pg MCHC 33.3 32.0 - 35.7 g/dL Platelets 170 145 - 357 x10(3)/mcL RDWSD 45.3 (H) 36.0 - 45.0 fL RDWCV 14.2 (H) 11.4 - 13.8 % MPV 11.2 7.6 - 12.9 fL nRBC % Auto 0.0 % nRBC Abs Auto 0.000 0.000 - 0.000 x10(3)/mcL Differential, Automated Result Value Ref Range Neutrophils % 72.5 % Neutr Abs (ANC) 9.30 (H) 1.70 - 6.10 x10(3)/mcL Lymphocytes % 12.3 % Lymphocytes Abs 1.6 0.9 - 3.2 x10(3)/mcL Monocytes % 11.2 % Monocyte Abs 1.4 (H) 0.3 - 0.9 x10(3)/mcL Eosinophils % 3.0 % Eosinophils Abs 0.4 0.0 - 0.4 x10(3)/mcL Basophils % 0.5 % Basophils Abs 0.1 0.0 - 0.1 x10(3)/mcL Immature Gran % 0.50 % Anna Gran Abs 0.06 (H) 0.00 - 0.04 x10(3)/mcL Heparin (unfractionated) Level Result Value Ref Range Heparin UFH Level 0.22 IU/mL POCT Glucose Result Value Ref Range POC Glucose 159 65 - 199 mg/dL POCT Glucose Result Value Ref Range POC Glucose 196 65 - 199 mg/dL POCT Glucose Result Value Ref Range POC Glucose 131 65 - 199 mg/dL POCT Glucose Result Value Ref Range POC Glucose 152 65 - 199 mg/dL Imaging: None Impression: 76M with history of CAD, atrial fibrillation, HTN, HLD, hypothyroidism, who is 2 days s/p CABG x4, with sudden onset of left lower extremity pain, paresthesias, and absent DP/PT signals, concerning for left lower extremity acute limb ischemia. Now s/p embolectomy of LLE without fasciotomies. - Daily dressing changes of dry gauze over groin site by nursing - counseled patient on importance of hygiene for groin wounds, recommend daily shower - We will sign off at this time and see the patient in 2 weeks with ABIs (we will arrange). Sheila Thakkar MD 10/01/2021 Vascular Surgery Consult Note - Sheila Thakkar MD - 09/30/2021 12:59 PM EDT [facility] Department of Surgery Inpatient Consult Note History of Present Illness: Richy Street is a 76 y.o. male with a history of atrial fibrillationon coumadin, CAD, CPAP, T2DM, HTN, hypothryoidism, FLORY, now 2 days s/p CABG x4, who we have been consulted on for acute loss of pulses and signals in LLE. Patient reports that he was in bed this morning when he suddenly had severe pain in his left foot. The pain came on suddenly. He tried touching his left foot with his right foot and noticed that he couldn't feel it. He called his nurse right away. He previously had palpable PT/DP pulses bilaterally but were no longer palpable in left nor were they obtained by doppler. Loss of sensation is limited to his left foot, though has pain in his left calf. Denies history of peripheral vascular disease. Denies prior symptoms of claudication. Last took warfarin on Thursday. Has not been on DVT ppx. Has been out of bed 3 or 4 times since surgery. Interval: Uneventful recovery from embolectomy, bedrest overnight, Hgb stable this am. Physical Exam: Temp: [36.2 ??C (97.2 ??F)-36.7 ??C (98.1 ??F)] Heart Rate: [78-104] Resp: [15-35] BP: (104-129)/(55-89) SpO2: [91 %-98 %] Heart Rate from SpO2: [74 bpm-104 bpm] Gen: NAD, A0x3 HEENT: NCAT CVS: RR Pulm: CTAB, breathing comfortably on RA GI: nontender; nondistended MSK: WWP, no edema Vascular: DP/PT signal on LLE; motor/sensory intact. Neuro: moving all 4 extremities spontaneously, nonfocal Data independently reviewed: Recent Results (from the past 24 hour(s)) BLOOD GAS 2 ARTERIAL Result Value Ref Range pH Art 7.36 7.35 - 7.45 pCO2 Art 39 35 - 45 mmHg pO2 Art 209 (H) 85 - 104 mmHg HCO3 Art 21.2 20.0 - 26.0 mmol/L BE Art -4.0 (L) -3.0 - 3.0 mmol/L Hgb Blood Gas 11.5 (L) 13.7 - 16.5 g/dL O2HB Art 98.5 (H) 94.0 - 97.0 % COHB Art 0.4 % METHB Art 0.3 <=1.5 % Na Whole Blood 134 (L) 135 - 145 mmol/L K Whole Blood 3.8 3.5 - 5.0 mmol/L ICa Whole Blood 1.12 (L) 1.15 - 1.33 mmol/L CL Whole Blood 104 98 - 107 mmol/L Gluc Whole Bld 134 65 - 199 mg/dL Lactate WB 1.4 0.5 - 2.2 mmol/L FIO2 Art 60 % Flow Art 1.0 LPM PF Ratio Art 348 Temp Art 38.2 Celsius Hemogram Result Value Ref Range WBC 16.5 (H) 4.0 - 9.5 x10(3)/mcL RBC 3.88 (L) 4.58 - 5.54 x10(6)/mcL Hemoglobin 11.1 (L) 13.7 - 16.5 g/dL Hematocrit 33.9 (L) 40.5 - 48.5 % MCV 87.4 82.9 - 93.1 fL MCH 28.6 27.5 - 32.1 pg MCHC 32.7 32.0 - 35.7 g/dL Platelets 145 145 - 357 x10(3)/mcL RDWSD 45.8 (H) 36.0 - 45.0 fL RDWCV 14.3 (H) 11.4 - 13.8 % MPV 11.0 7.6 - 12.9 fL nRBC % Auto 0.0 % nRBC Abs Auto 0.000 0.000 - 0.000 x10(3)/mcL Differential, Automated Result Value Ref Range Neutrophils % 89.4 % Neutr Abs (ANC) 14.75 (H) 1.70 - 6.10 x10(3)/mcL Lymphocytes % 4.2 % Lymphocytes Abs 0.7 (L) 0.9 - 3.2 x10(3)/mcL Monocytes % 5.6 % Monocyte Abs 0.9 0.3 - 0.9 x10(3)/mcL Eosinophils % 0.1 % Eosinophils Abs 0.0 0.0 - 0.4 x10(3)/mcL Basophils % 0.2 % Basophils Abs 0.0 0.0 - 0.1 x10(3)/mcL Immature Gran % 0.50 % Anna Gran Abs 0.08 (H) 0.00 - 0.04 x10(3)/mcL Basic Metabolic Panel (non-fasting) Result Value Ref Range Glucose Lvl 142 65 - 199 mg/dL BUN 14 10 - 20 mg/dL Creatinine 0.71 (L) 0.80 - 1.50 mg/dL Sodium 138 135 - 145 mmol/L Potassium 4.0 3.5 - 5.0 mmol/L Chloride 104 98 - 107 mmol/L CO2 24 22 - 31 mmol/L Anion Gap 10 5 - 15 mmol/L Calcium 8.3 (L) 8.5 - 10.5 mg/dL Estimated GFR 96 >=60 mL/min/1.73 m?? Hemogram Result Value Ref Range WBC 14.6 (H) 4.0 - 9.5 x10(3)/mcL RBC 3.65 (L) 4.58 - 5.54 x10(6)/mcL Hemoglobin 10.6 (L) 13.7 - 16.5 g/dL Hematocrit 32.5 (L) 40.5 - 48.5 % MCV 89.0 82.9 - 93.1 fL MCH 29.0 27.5 - 32.1 pg MCHC 32.6 32.0 - 35.7 g/dL Platelets 143 (L) 145 - 357 x10(3)/mcL RDWSD 45.8 (H) 36.0 - 45.0 fL RDWCV 14.1 (H) 11.4 - 13.8 % MPV 10.6 7.6 - 12.9 fL nRBC % Auto 0.0 % nRBC Abs Auto 0.000 0.000 - 0.000 x10(3)/mcL Differential, Automated Result Value Ref Range Neutrophils % 80.1 % Neutr Abs (ANC) 11.70 (H) 1.70 - 6.10 x10(3)/mcL Lymphocytes % 9.9 % Lymphocytes Abs 1.4 0.9 - 3.2 x10(3)/mcL Monocytes % 9.5 % Monocyte Abs 1.4 (H) 0.3 - 0.9 x10(3)/mcL Eosinophils % 0.0 % Eosinophils Abs 0.0 0.0 - 0.4 x10(3)/mcL Basophils % 0.1 % Basophils Abs 0.0 0.0 - 0.1 x10(3)/mcL Immature Gran % 0.40 % Anna Gran Abs 0.06 (H) 0.00 - 0.04 x10(3)/mcL Prothrombin Time Result Value Ref Range PT 12.2 9.4 - 12.5 sec INR 1.1 POCT Glucose Result Value Ref Range POC Glucose 158 65 - 199 mg/dL Imaging: None Impression: 76M with history of CAD, atrial fibrillation, HTN, HLD, hypothyroidism, who is 2 days s/p CABG x4, with sudden onset of left lower extremity pain, paresthesias, and absent DP/PT signals, concerning for left lower extremity acute limb ischemia. Now s/p embolectomy of LLE without fasciotomies. - Okay to be OOB - advance to therapeutic heparin - dressing down 10/01/21 - f/u jeff Thakkar MD 09/30/2021 Vascular Surgery Brief Op Note - Che Hayden MD - 09/29/2021 2:59 PM EDT Brief Operative Note Patient Name: Richy Street : [id number] MR#: [id number] Case Date: 09/29/2021 Surgeon: Surgeon(s) and Role: * Joselito Washburn MD - Primary * Che Hayden MD Preoperative diagnosis: left leg ischemia Postoperative diagnosis: left leg ischemia Procedure(s) (LRB): Embolectomy of left superficial femoral artery via groin cutdown. Anesthesia: General Findings: significant clot, mixed fresh and organized removed from superficial femoral artery. Excellent back bleeding from profunda and SFA, forward bleeding from common femoral artery. +DP and PT singals in the left foot after repair of the arteriotomy. Complications: none immediately present Estimated Blood Loss: 352 mL Specimens removed during surgery: [facility] Fluids: Intraprocedure Crystalloid Total Intake Lactated Ringers 1000.00 mL Total Intake 1000 mL Output Urine Output 400 mL Blood Loss 352 mL Total Output 752 mL Net Net Volume 248 mL PRBCs: none (See Anesthesia Record/Report for Other Blood Products) Urine Output: 400 mL Drains: none Disposition: awakened from anesthesia, extubated and taken to the recovery room in a stable condition, having suffered no apparent untoward event. Condition: stable (Please see the Surgical Encounter Summary for any Implant and Specimen details pertinent to this patient.) Surgical Infection Prevention Bundle Used? No Plan: - Return to Cardiac surgery CSCU. - Bed rest tonight - Initiate heparin infusion at 500 units/hr in 4 hours if no concern for hematoma/bleeding. - Recommend transthoracic echo to evaluate for cardiac clot burden secondary to atrial fibrillation as embolic source. - Vascular surgery will continue to follow Op Note - Joselito Washburn MD - 09/29/2021 1:35 PM EDT [facility] [place] Patient Name: Richy Street : [id number] MR#: [id number] Case Date: 09/29/2021 Surgeon: Surgeon(s) and Role: * Joselito Washburn MD - Primary * Che Hayden MD Preoperative diagnosis: left leg ischemia Postoperative diagnosis: left leg ischemia Procedure(s) (LRB): EMBOLECTOMY OR THROMBECTOMY, FEMOROPOPLITEAL, AORTOILIAC ARTERY BY LEG INCISION (WRVU 19.48) (Left) Findings: acute apprearing thrombus removed from left superficial femoral artery and distal common femoral artery. No evidence of reperfusion injury requiring fasciotomies. Dopper signals present in DPand PT after closure of arteriotomy. Anesthesia: General Estimated Blood Loss: 352 mL Specimens removed during surgery: None Drains: none Surgical Closure: Primary Closure - skin incision is completely closed without any wires, keith, drains or other devices Disposition: awakened from anesthesia, extubated and taken to the recovery room in a stable condition, having suffered no apparent untoward event. Condition: doing well with some problems : left pedal pulses remain nonpalpable (Please see the Surgical Encounter Summary for any Implant and Specimen details pertinent to this patient.) HPI/Surgical Indications: 76y male with a history of atrial fibrillation who underwent CABG two days prior. He was off of all anticoagulation for the last 7 days except while on cardiopulmonary bypass intraoperatively. This morning he noted acute pain and paresthesias in his LLE, after which no pulses could be palpated in his left foot or popliteal fossa. Doppler signals also could not be insonated in the foot or popliteal fossa. He had palpable bilateral femoral pulses. His right popliteal and pedal pulses were easily palpable. His left leg and foot strength and sensation were intact. He had no prior history of claudication or lower extremity wounds. He was consented for open thromboembolectomy, possible fasciotomies, andall indicated procedures. Procedure Description: The patient was brought from to the operating theatre by our anesthesia and nursing colleagues wherehe was placed supine on the operating table. The left lower extremity was imaged with duplex ultrasound and an abrupt lack of flow was noted in the very proximal superficial femoral artery with reconstitution of flow in the distal superficial femoral artery. After a smooth induction of general anesthesia, pre-operative antibiotics were administered, and all pressure points padded per protocol. The patient was then prepped and draped in the standard sterile fashion. An oblique incision was made in the left groin centered over the femoral artery. The subcutaneous tissues were divided with electrocautery. Small vessels and lymphatics were ligated as necessary with silk ties and small clips. The inguinal ligament was identified and the femoral fascia inferior to it opened to expose the femoral vessels. The common femoral artery was carefully dissected circumferentially and encircled in vessel loops. We next identified the bifurcation into the superficial femoral artery and the profunda femoris. These were similarly isolated and encircled with vessel loops. The patient was given 22585 units of intravenous heparin, which was allowed to circulate for 3 minutes. The common femoral artery and profunda were carefully clamped. A transverse arteriotomy was made using a #11 scalpel and extended using pinch-Kwong scissors. A #4 kenroy catheter was passed serially down the superficial femoral artery with return of both chronic and acute appearing thrombus. This was continued until no additional thrombus was acquired and there was excellent back bleeding. The superficial femoral artery was then carefully clamped. We attempted to pass the kenroy catheter down the profunda but encountered difficulty due to tortuosity. There were brisk backbleeding from the artery. We also passed the kenroy cathteter proximally into the external iliac artery. We obtained no clot and there was brisk pulsatile bleeding from the artery. The arteriotomy was then repaired with 6-0prolene suture. Prior to placing the last throw, the arteries were back and forward bled to remove any embolic material and de-air the vessel. We were then able to obtain strong DP and PT doppler signals in the left foot. We assessed the calf compartments, which were all soft with no appreciable swelling. The total ischemic time for the leg was approximately 3 hours, and we felt the risk of compartment syndrome was low. Therefore we did not proceed with fasciotomies. The groin and arteriotomy repair were inspected and found to be hemostatic. The groin was closed in layers with 2-0 and 3-0 vicryl. The dermis was closed with 4-0 monocryl andthe skin sealed with Dermabond. The incision was dressed with a telfa and tegaderm. The patient tolerated the procedure well and was allowed to emerge from anesthesia. He was extubatedin the operating theatre and taken to the PACU in stable condition. All sponge, needle, and instrument counts were correct at the conclusion of the procedure. Dr. Washburn was present and scrubbed for the procedure in its entirety. Surgical Infection Prevention Bundle Used? No Infection present at time of surgery? No Pre-operative IV antibiotics: Other: ancef Consult Note - Ioana Gaspar MD - 09/29/2021 11:07 AM EDT [facility] Department of Surgery Inpatient Consult Note Consultation Requested by: Abdon Arreguin MD History of Present Illness: Richy Street is a 76 y.o. male with a history of atrial fibrillationon coumadin, CAD, CPAP, T2DM, HTN, hypothryoidism, FLORY, now 2 days s/p CABG x4, who we have been consulted on for acute loss of pulses and signals in LLE. Patient reports that he was in bed this morning when he suddenly had severe pain in his left foot. The pain came on suddenly. He tried touching his left foot with his right foot and noticed that he couldn't feel it. He called his nurse right away. He previously had palpable PT/DP pulses bilaterally but were no longer palpable in left nor were they obtained by doppler. Loss of sensation is limited to his left foot, though has pain in his left calf. Denies history of peripheral vascular disease. Denies prior symptoms of claudication. Last took warfarin on Thursday. Has not been on DVT ppx. Has been out of bed 3 or 4 times since surgery. PMH/PSH: Past Medical History: Diagnosis Date ??? ASCVD (arteriosclerotic cardiovascular disease) 10/24/2015 ??? Coronary artery disease ??? CPAP (continuous positive airway pressure) dependence ??? Diabetes ??? Essential hypertension 10/24/2015 ??? Gastroesophageal reflux ??? Hyperlipidemia 10/24/2015 ??? Hypothyroidism 10/24/2015 ??? Irregular heart beat ??? Obstructive sleep apnea ??? PAF (paroxysmal atrial fibrillation) 10/24/2015 S/p cardioversion on sotolol Amiodarone discontinued due to side effects ??? Presence of permanent cardiac pacemaker 10/24/2015 ??? Sick sinus syndrome 10/24/2015 ??? Stroke Past Surgical History: Procedure Laterality Date ??? CORONARY ANGIOPLASTY WITH STENT PLACEMENT ??? PACEMAKER IMPLANT ? ? PRG CATH [facility] LEFT HEART CATH & ARTS W/INJ & ANGIO IMG S&I N/A 09/10/2021 CORONARY ANGIOGRAPHY; W LHC,POSSIBLE PCI performed by Vinod Hassan MD at [facility] CATH LABS ??? PRO CABG, ARTERIAL, SINGLE N/A 09/27/2021 @CABG, USING ARTERIAL GRAFT;SINGLE ARTERIAL GRAFT (WRVU 33.75) performed by Abdon Arreguin MD at [facility] MAIN OR ??? PRO CABG, ARTERY-VEIN, THREE N/A 09/27/2021 @CABG; 3 VENOUS GRAFTS & ARTERIAL GRAFT (WRVU 10.49) performed by Abdon Arreguin MD at [facility] MAIN OR ??? PRO ENDOSCOPY W/VIDEO-ASST VEIN HARVEST, CABG N/A 09/27/2021 ENDOSCOPIC HARVEST VEIN(S) FOR CABG (WRVU 0.31) performed by Abdon Arreguin MD at [facility] MAIN OR Medications No current facility-administered medications on file prior to encounter. Current Outpatient Medications on File Prior to Encounter Medication Sig Dispense Refill ??? albuteroL 90 mcg/actuation HFA Aerosol Inhaler Inhale 1 puff into the lungs as needed for Cough. ??? acetaminophen (Tylenol) 500 mg Tablet Take 500 mg by mouth as needed for Pain. Take 1-2 tablet by mouth every 6 hours prn for aches ??? dilTIAZem CD (Cardizem CD) 180 mg Capsule, Sust. Release 24 hr Take 180 mg by mouth daily. ??? Mometasone-Formoterol (Dulera) 200-5 mcg/actuation HFA Aerosol Inhaler Inhale 2 puffs into the lungs 2 times daily. ??? aclidinium bromide (Tudorza Pressair) 400 mcg/actuation Aerosol Powdr Breath Activated Inhale 400 mcg into the lungs 2 times daily. ??? potassium chloride (MICRO-K) 10 mEq Capsule, Sustained Release Take 20 mEq by mouth daily. ??? metFORMIN XR (Glucophage XR) 500 mg Tablet Sustained Release 24 hr Take 1,000 mg by mouth 2 times daily. ??? tamsulosin (Flomax) 0.4 mg Capsule TAKE 1 CAPSULE BY MOUTH TWICE DAILY ??? furosemide (Lasix) 20 mg Tablet Take 20 mg by mouth daily. ??? gemfibrozil (LOPID) 600 mg Tablet Take 300 mg by mouth 2 times daily. ??? levothyroxine (Synthroid) 100 mcg Tablet Take 125 mcg by mouth daily. ??? pravastatin (PRAVACHOL) 80 mg Tablet Take 80 mg by mouth nightly. ??? warfarin (COUMADIN) 1 mg Tablet Take 1 mg by mouth daily. ??? triamcinolone (NASACORT or NASACORT OTC) 55 mcg Aerosol, Portal 1 spray by Nasal route daily. 55 mcg spray 1 spray into both nostrils once a day as needed for nasal congestion ??? gabapentin (Neurontin) 100 mg Capsule Take 200 mg by mouth nightly as needed. ??? nitroGLYcerin (NITROSTAT) 0.4 mg Tablet, Sublingual Place 0.4 mg under the tongue every 5 minutes as needed for Chest pain. Allergies Allergies Allergen Reactions ??? Lipitor [Atorvastatin] Other (See Comments) myositis ??? Amiodarone Bluish discoloration on face Family History: History reviewed. No pertinent family history. Social History: Social History Socioeconomic History ??? Marital status: Spouse name: Not on file ??? Number of children: Not on file ??? Years of education: Not on file ??? Highest education level: Not on file Occupational History ??? Not on file Tobacco Use ??? Smoking status: Former Smoker Types: Cigarettes Quit date: 06/11/1992 Years since quittin.3 ??? Smokeless tobacco: Former User Quit date: 1969 ??? Tobacco comment: quit in 1992 Substance and Sexual Activity ??? Alcohol use: No Comment: QUIT IN 1978 ??? Drug use: No ??? Sexual activity: Not on file Other Topics Concern ??? Not on file Social History Narrative ??? Not on file Social Determinants of Health Financial Resource Strain: Not on file Food Insecurity: Not on file Transportation Needs: Not on file Physical Activity: Not on file Housing Stability: Not on file Review of Systems: As stated above, otherwise ten system review negative Physical Exam: Temp: [36.6 ??C (97.9 ??F)-36.9 ??C (98.4 ??F)] Heart Rate: [72-98] Resp: [16-25] BP: (101-154)/(57-79) SpO2: [93 %-98 %] Heart Rate from SpO2: [74 bpm-90 bpm] Gen: NAD, A0x3 HEENT: RONEY, MMM CVS: irregular rhythm, regular rate Pulm: CTAB, breathing comfortably on RA GI: nontender; nondistended MSK: WWP, no edema Vascular: palpable 2+ femoral pulses bilaterally, DP/PT signal on RLE; absent DP/PT signal on LLE; sensation absent to the ankle in left foot; no mottling or skin color changes Neuro: moving all 4 extremities spontaneously, nonfocal Data independently reviewed: Recent Results (from the past 24 hour(s)) POCT Glucose Result Value Ref Range POC Glucose 149 65 - 199 mg/dL POCT Glucose Result Value Ref Range POC Glucose 134 65 - 199 mg/dL Potassium Result Value Ref Range Potassium 3.9 3.5 - 5.0 mmol/L Imaging: None Impression: 76M with history of CAD, atrial fibrillation, HTN, HLD, hypothyroidism, who is 2 days s/p CABG x4, with sudden onset of left lower extremity pain, paresthesias, and absent DP/PT signals, concerning for left lower extremity acute limb ischemia. Discuss with primary team. Will initiate therapeutic heparin and proceed to OR urgently for left lower extremity embolectomy, possible fasciotomies, all indicated procedures. Thank you for this consult. If you have any questions, please page [phone] (day/week) [phone] (night/weekend). [x] Consult service to continue to follow [] Consult service to sign off Ioana Gsapar MD 09/29/2021 Vascular Surgery Initial Assessments - Chucky Meyer MSW - 09/29/2021 10:11 AM EDT Office of Care Management Initial Assessment SHAHZAD Mariscal reviewed record and discussed patient with Care Team. Source of Information: Team, bedside nurse, medical record, and Patient, Chart Review Introduced self/reviewed role; services accepted. Reason for Hospitalization: heart surgery Covid Vaccination Status: 1st, 2nd & booster Last COVID test: Lab Results Component Value Date COVID19 Not Detected 06/22/2019 Past medical History: Past Medical History: Diagnosis Date ??? ASCVD (arteriosclerotic cardiovascular disease) 10/24/2015 ??? Coronary artery disease ??? CPAP (continuous positive airway pressure) dependence ??? Diabetes ??? Essential hypertension 10/24/2015 ??? Gastroesophageal reflux ??? Hyperlipidemia 10/24/2015 ??? Hypothyroidism 10/24/2015 ??? Irregular heart beat ??? Obstructive sleep apnea ??? PAF (paroxysmal atrial fibrillation) 10/24/2015 S/p cardioversion on sotolol Amiodarone discontinued due to side effects ??? Presence of permanent cardiac pacemaker 10/24/2015 ??? Sick sinus syndrome 10/24/2015 ??? Stroke Hospitalizations Within the Past 30 Days: no previous admission in last 30 days Current Decision-Making Capacity: Self If AD's have not been completed the following surrogate would be surrogate decision maker per [place] surrogate decision making law. (Only good for 180 days) Any patient receiving care in [place] must abide by [place] law. The hierarchy for surrogate decision making is: (a) Patient???s spouse, or civil union partner or common law spouse unless there is a divorce proceeding, separation agreement, or restraining order limiting that person???s relationship with the patient. (b) Any adult son or daughter of the patient. (c) Either parent of the patient. (d) Any adult brother or sister of the patient. (e) Any adult grandchild of the patient. (f) Any grandparent of the patient. (g) Any adult aunt, uncle, niece, or nephew of the patient. (h) A close friend of the patient. (i) The agent with financial power of multimedia editor or a conservator appointed in accordance with RSA 464-A. (j) The guardian of the patient???s estate. Advance Care Planning: Attempt Cardiopulmonary Resuscitation - Inpatient Received -Advanced Directive: Other (Terminal Care Document) Current Coping/Education/Information Needs: Current Functional Ability: Assistive Person Functional Status Prior to Admission: Independent Prior ADLs & IADLs: Independent with all ADLs & IADLs Home Environment: Others in the home: spouse. Current Living Arrangements: home/apartment/condo. Accessibility Concerns:one floor. Resource / Environmental Concerns: Resource/Environmental Concerns: none Current DME: none Home Address as: [address] [place] [phone] Social & Family Supports: All names listed below confirmed with patient as current and correct Extended Emergency Contact Information Primary Emergency Contact: Vy Street Address: [address] [place] [phone] [facility] Relation: Spouse Current Care Provided by: self, spouse/significant other Provides Primary Care For: no one Caregiver if needed: spouse Quality of Family relationships: supportive Community Resources being provided currently: none Behavioral Health History: Substance Use/Abuse : Social History Tobacco Use Smoking Status Former Smoker ??? Types: Cigarettes ??? Quit date: 06/11/1992 ??? Years since quittin.3 Smokeless Tobacco Former User Tobacco Comment quit in 1992 0 No problems reported 1-2 Low level 3-5 Moderate level 6-8 Substantial level 9- 10 Severe level 0 to 7 points: Low risk 8 to 15 points: Medium risk 16 to 19 points: High risk 20 to 40 points: Addiction likely Other Pertinent/Service Specific Information: none Health/Prescription Coverage: Primary Insurance: MEDICARE Secondary Insurance: [facility] Secondary Insurance? (Only Medicare A&B): Yes ; Prescription Coverage: Yes Preferred Pharmacy: [facility] Status: Patient is a : No Primary Care Provider: Jesusita Law MD [phone] Patient/Caregiver Goals of Treatment: Potential Needs for Transition of Care: home health care Agency Referrals: Transportation: no concerns Transportation Anticipated: family or friend will provide Concerns to be Addressed: no discharge needs identified Assessment: Patient is admitted to Cardiac Surgery service for CABG Plan: home with VNA at discharge A member of the Care Management team will continue to monitor progress, follow for continuity of care and assist with transition of care planning. SHAHZAD Delgado Plan of Care - Beatriz Mejia RN - 09/28/2021 5:54 PM EDT Richy had a good day. Downgraded to L5. Chest tubes pulled. IJ and A line removed. Pain controlledwith dilaudid and tylenol. Op Note - Abdon Arreguin MD - 09/27/2021 1:49 PM EDT 09/29/2021 Richy aGrcia Charlie 1945 [id number] Preoperative Diagnosis: Coronary artery disease Unstable Angina Postoperative Diagnosis: Coronary artery diseaseUnstable Angina Procedure: CABG times 4: SOTO to LAD, SVG to diag and om, svg to rca. Endoscopic vein harvest Surgeon: Abdon Arreguin M.D. Senior Restaurant Manager: Mateo thornton Anesthesia: General endotracheal anesthesia Drains: Two mediastinal tubes Pacing Wires: Two A-wires, two V-wires. EBL: Minimal mL Findings: intramyocardial lad, diag and om (very difficult to find) Procedure: The patient was taken to the Operating Room and had a radial A-line placed. All the proper lines and monitors were placed by Anesthesia. The patient was then prepped and draped in the normalsterile fashion. The right leg was used to harvest the greater saphenous vein using an endoscopic technique. A vertical incision was made on the medial aspect of the knee. The Hemopro2 system was used to dissect out the vein anterior and posteriorly. All the side branches were cauterized. The vein was ligated distallyand proximally. It was removed through the incision at the knee. The vein was flushed with heparinized saline in a reverse direction. All the side branches were clipped. The vein was untwisted and striped with a sterile pen. The leg had a JAQUAN drain placed in it. It was irrigated out with antibiotic solution and closed immediately. The chest was opened along the midline. Cautery was used on the sternal edges and bone wax was lightly applied to the divided marrow of the sternum. The left beatris-sternum was elevated. The pleura were taken down, and the mammary artery was dissected free clipping all side branches. Heparin was given. Several minutes later the distal end of the mammary was clipped and tied on the chest wall, and the bleeding end had a bulldog placed across it. It was prepared for bypass by spatulating it open, injecting it with verapamil, and rolling it up into a nitroglycerin-soaked sponge. The AMANDA had excellent flow. The Rultract was removed. Two antibiotic-soaked towels were used to bumper the sternum. The sternal retractor was used to openthe sternum. The overlying pericardium was opened in an inverse-T fashion and hung to the edge of the sternal retractor. Full-dose heparin was given. The aorta was cannulated. The right atrium had the venous cannula placed through the IVC. A retrograde was placed through the right atrium into the coronary sinus. The antegrade was place mid ascending aorta which also doubled as the root vent. With theACT above 450, we went on bypass. The targets were inspected. The aorta was crossclamped and the heart was arrested with cold blood cardioplegia antegrade and retrograde. We drifted to 32 degrees Celsius. The bypasses were as follows: The om target was identified and opened and in an end to side fashion the SVG was anastomosed with arunning 7.0 prolene. Cardiopelegia was given down the graft and there were no leaks. The heart was filled and the graft was measured for length and trimmed. A punch was made in the aorta and a proximalanastomosis was created with a 6-0. A washer was used to identify the proximal. The same procedures was completed for diag and rca and cardioplegia was given between all bypasses. The amanda was taken out of the left chest and a slit was created in the L side of the pericardium making sure to identify the L phrenic nerve. The amanda was anastomosed to the LAD with a running 8-0 prolene. The bulldog was removed to test the graft then replaced. At this point, hotshots were given. The heart began beating in a sinus rhythm. The crossclamp was removed. The grafts were inspected. The heart was allowed to re-perfuse. The retrograde was removed andoversewn; so was the antegrade. An angled chest tube was placed behind the heart. Both chests were suctioned out, and the lungs were re-inflated. After a period of rewarming and allowing the heart to re-perfuse, we from bypass. The venous cannula was removed and the pursestring was tied downand oversewn. Protamine was given. The aortic cannula was removed. Both pursestrings were tied down and oversewn. We had no further bleeding. A straight chest tube was placed in front of the heart. Vanco paste was applied to the sternum. Interrupted steel cables were used to close the chest, several layers of Vicryl, and a 4-0 Monocryl were used to close the overlying soft tissue. Glue and clean dry sterile dressings were applied. The patient was transported to the [facility] on levo. All counts were correct. OR Attestation - Abdon Arreguin MD - 09/27/2021 10:16 AM EDT Attestation: Case Date: 09/27/2021 - 09/28/2021 I performed this procedure without the involvement of a resident. Abdon Arreguin MD 09/29/2021 Brief Op Note - Abdon Arreguin MD - 09/27/2021 10:09 AM EDT Brief Operative Note Patient Name: Richy Street : [id number] MR#: [id number] Case Date: 09/27/2021 - 09/28/2021 Surgeon: Surgeon(s) and Role: * Abdon Arreguin MD - Primary * Sam Kate PA - Physician Senior Restaurant Manager * Davie Galindo PA - Physician Senior Restaurant Manager Preoperative diagnosis: cad Postoperative diagnosis: CAD Procedure(s) (LRB): @CABG, USING ARTERIAL GRAFT;SINGLE ARTERIAL GRAFT (WRVU 33.75) (N/A) @CABG; 3 VENOUS GRAFTS & ARTERIAL GRAFT (WRVU 10.49) (N/A) ENDOSCOPIC HARVEST VEIN(S) FOR CABG (WRVU 0.31) (N/A) Anesthesia: General Findings: intramyocardial lad, diag and om Complications: none Estimated Blood Loss: 493 mL* No values recorded between 09/27/2021 1:49 PM and 09/27/2021 5:05 PM * Specimens removed during surgery: None Fluids: Intraprocedure Crystalloid Total Intake Cell Saver Volume 493 mL Cryoprecipitate Volume 202 mL Total Intake 695 mL Output Urine Output 1000 mL Blood Loss 493 mL Total Output 1493 mL Net Net Volume -798 mL PRBCs: none (See Anesthesia Record/Report for Other Blood Products) Urine Output: 1000 mL Drains: 2 med tubes Disposition: taken directly to the ICU, intubated and in a critical condition. Condition: doing well without problems (Please see the Surgical Encounter Summary for any Implant and Specimen details pertinent to this patient.) Surgical Infection Prevention Bundle Used? No documented in this encounter Plan of Treatment Upcoming Encounters Date Type Specialty Care Team Description 11/05/2021 Appointment Radiology 11/05/2021 Office Visit Cardiac Surgery Abdon Arreguin MD [facility] [place], [place] [address] (Wo rk) Scheduled Referrals Name Type Priority Associated Diagnoses Order S chedule Referral to Home Outpatient Referral Routine S/P CABG x 4 Orde red: Health 10/03/2021 Referral to Outpatient Referral Routine S/P CABG x 4 Ordered: Cardiac Rehab 10/03/2021 documented as of this encounter Procedures Procedure Name Priority Date/Time Associated Comments Diagnosis POCT GLUCOSE Routine 10/03/2021 11:35 Results for this AM EDT procedure are i n the results section. POCT GLUCOSE Routine 10/03/2021 7:23 Results for this AM EDT procedure are i n the results section. HC UNFRACTIONATED Routine 10/03/2021 4:26 Results for this HEPARIN (HEP UFH) AM EDT procedure are in the results section. HEMOGRAM Routine 10/03/2021 4:26 Results for this AM EDT procedure are i n the results section. DIFFERENTIAL, AUTOMATED Routine 10/03/2021 4:26 R esults for this AM EDT procedure are i n the results section. HC PROTHROMBIN TIME Routine 10/03/2021 4:26 Resul ts for this AM EDT procedure are i n the results section. HC CBC,PLT & AUTO DIFF Routine 10/03/2021 4:26 AM EDT HC POTASSIUM Routine 10/03/2021 4:26 Results for this AM EDT procedure are i n the results section. POCT GLUCOSE Routine 10/02/2021 8:15 Results for this PM EDT procedure are i n the results section. POCT GLUCOSE Routine 10/02/2021 4:14 Results for this PM EDT procedure are i n the results section. HC POTASSIUM Routine 10/02/2021 2:28 Results for this PM EDT procedure are i n the results section. POCT GLUCOSE Routine 10/02/2021 10:55 Results for this AM EDT procedure are i n the results section. POCT GLUCOSE Routine 10/02/2021 7:33 Results for this AM EDT procedure are i n the results section. HC UNFRACTIONATED Routine 10/02/2021 3:59 Results for this HEPARIN (HEP UFH) AM EDT procedure are in the results section. HEMOGRAM Routine 10/02/2021 3:59 Results for this AM EDT procedure are i n the results section. DIFFERENTIAL, AUTOMATED Routine 10/02/2021 3:59 R esults for this AM EDT procedure are i n the results section. HC PROTHROMBIN TIME Routine 10/02/2021 3:59 Resul ts for this AM EDT procedure are i n the results section. HC CBC,PLT & AUTO DIFF Routine 10/02/2021 3:59 AM EDT HC VENIPUNCTURE Routine 10/02/2021 3:59 Results f or this AM EDT procedure are i n the results section. POCT GLUCOSE Routine 10/01/2021 7:43 Results for this PM EDT procedure are i n the results section. POCT GLUCOSE Routine 10/01/2021 5:08 Results for this PM EDT procedure are i n the results section. POCT GLUCOSE Routine 10/01/2021 11:49 Results for this AM EDT procedure are i n the results section. POCT GLUCOSE Routine 10/01/2021 7:54 Results for this AM EDT procedure are i n the results section. HC UNFRACTIONATED Routine 10/01/2021 3:25 Results for this HEPARIN (HEP UFH) AM EDT procedure are in the results section. HEMOGRAM Routine 10/01/2021 3:25 Results for this AM EDT procedure are i n the results section. DIFFERENTIAL, AUTOMATED Routine 10/01/2021 3:25 R esults for this AM EDT procedure are i n the results section. HC PROTHROMBIN TIME Routine 10/01/2021 3:25 Resul ts for this AM EDT procedure are i n the results section. HC CBC,PLT & AUTO DIFF Routine 10/01/2021 3:25 AM EDT HC VENIPUNCTURE Routine 10/01/2021 3:25 Results f or this AM EDT procedure are i n the results section. HC VENIPUNCTURE STAT 09/30/2021 8:23 Results f or this PM EDT procedure are i n the results section. POCT GLUCOSE Routine 09/30/2021 7:42 Results for this PM EDT procedure are i n the results section. POCT GLUCOSE Routine 09/30/2021 4:22 Results for this PM EDT procedure are i n the results section. HC UNFRACTIONATED STAT 09/30/2021 1:48 Results for this HEPARIN (HEP UFH) PM EDT procedure are in the results section. POCT GLUCOSE Routine 09/30/2021 11:39 Results for this AM EDT procedure are i n the results section. ECHOCARDIOGRAM LMTD W Routine 09/30/2021 11:20 Arterial emboli sm Results for this CONTRAST W LMTD SPEC AM EDT of left leg procedu re are in DOPP COLOR DOPP the results section. XR CHEST PA AND LATERAL Routine 09/30/2021 10:23 Results for this AM EDT procedure are i n the results section. HC PROTHROMBIN TIME Routine 09/30/2021 9:12 Resul ts for this AM EDT procedure are i n the results section. HEMOGRAM Routine 09/30/2021 3:25 Results for this AM EDT procedure are i n the results section. DIFFERENTIAL, AUTOMATED Routine 09/30/2021 3:25 R esults for this AM EDT procedure are i n the results section. HC CBC,PLT & AUTO DIFF Routine 09/30/2021 3:25 AM EDT HC VENIPUNCTURE Routine 09/30/2021 3:25 Results f or this AM EDT procedure are i n the results section. HEMOGRAM Routine 09/29/2021 8:59 Results for this PM EDT procedure are i n the results section. DIFFERENTIAL, AUTOMATED Routine 09/29/2021 8:59 R esults for this PM EDT procedure are i n the results section. HC CBC,PLT & AUTO DIFF Routine 09/29/2021 8:59 PM EDT BLOOD GAS 2 ARTERIAL Routine 09/29/2021 1:32 Resu lts for this PM EDT procedure are i n the results section. EMBOLECTOMY OR 09/29/2021 12:58 left leg ischemia THROMBECTOMY, PM EDT FEMOROPOPLITEAL, AORTOILIAC ARTERY BY LEG INCISION (WRVU 19.48) EMBOLECTOMY/THROMBECT, Routine 09/29/2021 12:21 FEMOROPOPLITEAL, PM EDT AORTOILIAC ARTERY BY LEG INCIS ARTERIAL DUPLEX LEG Routine 09/29/2021 12:08 PAF (paroxysmal R esults for this UNILA PM EDT atrial procedure are i n fibrillation) the results section. HC VENIPUNCTURE Routine 09/29/2021 5:51 Results f or this AM EDT procedure are i n the results section. POCT GLUCOSE Routine 09/28/2021 4:29 Results for this PM EDT procedure are i n the results section. POCT GLUCOSE Routine 09/28/2021 12:19 Results for this PM EDT procedure are i n the results section. POCT GLUCOSE Routine 09/28/2021 10:57 Results for this AM EDT procedure are i n the results section. POCT GLUCOSE Routine 09/28/2021 9:49 Results for this AM EDT procedure are i n the results section. POCT GLUCOSE Routine 09/28/2021 8:16 Results for this AM EDT procedure are i n the results section. POCT GLUCOSE Routine 09/28/2021 7:00 Results for this AM EDT procedure are i n the results section. POCT GLUCOSE Routine 09/28/2021 6:41 Results for this AM EDT procedure are i n the results section. POCT GLUCOSE Routine 09/28/2021 5:56 Results for this AM EDT procedure are i n the results section. POCT GLUCOSE Routine 09/28/2021 4:58 Results for this AM EDT procedure are i n the results section. POCT GLUCOSE Routine 09/28/2021 3:58 Results for this AM EDT procedure are i n the results section. HEMOGRAM Routine 09/28/2021 2:15 Results for this AM EDT procedure are i n the results section. DIFFERENTIAL, AUTOMATED Routine 09/28/2021 2:15 R esults for this AM EDT procedure are i n the results section. HC CBC,PLT & AUTO DIFF Routine 09/28/2021 2:15 AM EDT HC TROPONIN T Routine 09/28/2021 2:15 Results for this AM EDT procedure are i n the results section. BASIC METABOLIC PANEL Routine 09/28/2021 2:15 Res ults for this (NON-FASTING) AM EDT procedure are in the results section. POCT GLUCOSE Routine 09/28/2021 2:12 Results for this AM EDT procedure are i n the results section. POCT GLUCOSE Routine 09/28/2021 12:13 Results for this AM EDT procedure are i n the results section. POCT GLUCOSE Routine 09/27/2021 10:07 Results for this PM EDT procedure are i n the results section. HC HEMOGLOBIN, BLOOD Routine 09/27/2021 9:30 Resu lts for this PM EDT procedure are i n the results section. HC POTASSIUM Routine 09/27/2021 9:30 Results for this PM EDT procedure are i n the results section. EXTUBATE Routine 09/27/2021 7:54 PM EDT BLOOD GAS 2 ARTERIAL Routine 09/27/2021 7:45 Resu lts for this PM EDT procedure are i n the results section. POCT GLUCOSE Routine 09/27/2021 7:19 Results for this PM EDT procedure are i n the results section. XR CHEST ONE VIEW STAT 09/27/2021 6:22 Results for this PM EDT procedure are i n the results section. BLOOD GAS 2 ARTERIAL Routine 09/27/2021 5:58 Resu lts for this PM EDT procedure are i n the results section. EKG 12-LEAD STAT 09/27/2021 5:47 S/P CABG x 4 Results for this PM EDT procedure are i n the results section. HC HEMOGRAM STAT 09/27/2021 4:37 Results for this PM EDT procedure are i n the results section. HC PARTIAL STAT 09/27/2021 4:37 Results for this THROMBOPLASTIN TIME PM EDT procedur e are in the results section. HC THROMBIN TIME STAT 09/27/2021 4:37 Results for this PM EDT procedure are i n the results section. HC PROTHROMBIN TIME STAT 09/27/2021 4:37 Resul ts for this PM EDT procedure are i n the results section. HC FIBRINOGEN TITER STAT 09/27/2021 4:37 Resul ts for this PM EDT procedure are i n the results section. BLOOD GAS 2 ARTERIAL Routine 09/27/2021 4:33 Resu lts for this PM EDT procedure are i n the results section. PREPARE CRYOPRECIPITATE STAT 09/27/2021 4:20 R esults for this PM EDT procedure are i n the results section. BLOOD GAS 2 ARTERIAL Routine 09/27/2021 3:48 Resu lts for this PM EDT procedure are i n the results section. HC FIBRINOGEN TITER STAT 09/27/2021 3:40 Resul ts for this PM EDT procedure are i n the results section. HC PLATELET COUNT STAT 09/27/2021 3:40 Results for this PM EDT procedure are i n the results section. HC HEMOGLOBIN, BLOOD STAT 09/27/2021 3:40 Resu lts for this PM EDT procedure are i n the results section. HC HEMATOCRIT, BLOOD STAT 09/27/2021 3:40 Resu lts for this PM EDT procedure are i n the results section. BLOOD GAS 2 ARTERIAL Routine 09/27/2021 3:16 Resu lts for this PM EDT procedure are i n the results section. BLOOD GAS 2 ARTERIAL Routine 09/27/2021 2:46 Resu lts for this PM EDT procedure are i n the results section. BLOOD GAS 2 ARTERIAL Routine 09/27/2021 1:47 Resu lts for this PM EDT procedure are i n the results section. TRANSESOPHAGEAL Routine 09/27/2021 12:56 Coronary artery Resul ts for this ECHOCARDIOGRAM IN THE PM EDT disease involving p rocedure are in OR la posta heart with the result s unstable angina section. pectoris, unspecified vessel or lesion type ENDOSCOPIC HARVEST 09/27/2021 12:51 Coronary artery VEIN(S) FOR CABG (WRVU PM EDT disease involving 0.31) la posta heart with unstable angina pectoris, unspecified vessel or lesion type @CABG; 3 VENOUS GRAFTS 09/27/2021 12:51 Coronary arter y & ARTERIAL GRAFT (WRVU PM EDT disease involving 10.49) la posta heart with unstable angina pectoris, unspecified vessel or lesion type @CABG, USING ARTERIAL 09/27/2021 12:51 Coronary artery GRAFT;SINGLE ARTERIAL PM EDT disease involving GRAFT (WRVU 33.75) la posta heart with unstable angina pectoris, unspecified vessel or lesion type PREPARE RBC STAT 09/27/2021 12:05 Results for this PM EDT procedure are i n the results section. POCT GLUCOSE Routine 09/27/2021 11:37 Results for this AM EDT procedure are i n the results section. ENDOSCOPIC HARVEST Routine 09/27/2021 10:15 Coronary artery VEIN(S) FOR CABG AM EDT disease involving la posta heart with unstable angina pectoris, unspecified vessel or lesion type @CABG,USING ARTERIAL Routine 09/27/2021 10:15 Coronary artery GRAFT;SINGLE ARTERIAL AM EDT disease involving GRAFT la posta heart with unstable angina pectoris, unspecified vessel or lesion type @CABG;3 VENOUS GRAFTS & Routine 09/27/2021 10:15 Coronary meghan ry ARTERIAL GRAFT AM EDT disease involving la posta heart with unstable angina pectoris, unspecified vessel or lesion type LAB SCAN 09/27/2021 12:00 Results for this AM EDT procedure are i n the results section. documented in this encounter Results TONEY, legs, multiple levels (10/22/2021 10:44 AM EDT) Component Value Ref Test Analysis Performed At [facility] Range Method Time Signature VB Text Department: Vascular Surgery Lab VASCUBASE Report Patient: [id number] (GRAMMO, RICHY) CPT: 59793 Referring Physician: ABDON ARREGUIN ?? Indications: S/p LLE embolectomy, ? perfusion Diabetes mellitus: Yes Findings: Right ?Pressure (mm Hg) ?? TONEY ??Waveform ?TBI ?? Brachial Artery ?137 ? Common Femoral Artery ?Triphasic ? Popliteal Artery ? Triphasic ? Dorsalis Pedis (Ankle) Arter y ?176 ? 1.28 ??Triphasic ? Posterior Tibial (Ankle) Art arlyn ??153 ? 1.12 ??Triphasic ? Great Toe ?124 ?0.91 ?? Left ? Pressure (mm Hg) ?? TONEY ??Waveform ?TBI ?? Brachial Artery ?133 ? Common Femoral Artery ?Triphasic ? Popliteal Artery ? Triphasic ? Dorsalis Pedis (Ankle) Arter y ?>254 ?Triphasic ? Posterior Tibial (Ankle) Art arlyn ??157 ? 1.15 ??Triphasic ? Great Toe ?126 ?0.92 ?? Interpretation: RIGHT: No significant lower extremity arterial occlusive dis ease. Normal ankle/brachial pressure ratios, ankle Doppler waveforms and toe pressures. LEFT: No significant lower extremity arterial occlusive dise ase. Normal ankle/brachial pressure ratios, ankle Doppler waveforms and toe pressures. Comment: The left dorsalis p luis ankle pressure is falsely elevated most likely due to calcified tibial artery. Thus, disease severity is ba sed on Doppler waveform and toe pressure. Comparison: ??No previous study in our vascular lab da tabase for comparison. Electronically Signed by: JOSELITO WASHBURN on 2021-10-22 11:30: 17 AM VB Text End of Report VASCUBASE Report Specimen (Source) Anatomical Collection Method Collection Time Re ceived Time Location / / Volume Laterality 10/22/2021 10:44 AM EDT Abdon Arreguin MD VASCULAR ORDERABLES Performing Organization Address City/State/ZIP Code Phon e Number VASCUBASE POCT Glucose (10/03/2021 11:35 AM EDT) athologist Signature POC Glucose 114 65 - 199 [facility] mg/dL [facility] Comment: Supplemental ranges: <140 mg/dL before meals <180 mg/dL all other times of the day Specimen Anatomical Collection Method Collection Time Receive d Time (Source) Location / / Volume Laterality Blood 10/03/2021 11:35 10/03/2021 AM EDT 11:35 AM EDT Abdon Arreguin MD POINT OF CARE TEST ORDERABLE S Performing Organization Address City/State/[place] [address] POCT Glucose (10/03/2021 7:23 AM EDT) athologist Signature POC Glucose 122 65 - 199 [facility] mg/dL [facility] Comment: Supplemental ranges: <140 mg/dL before meals <180 mg/dL all other times of the day Specimen Anatomical Collection Method Collection Time Receive d Time (Source) Location / / Volume Laterality Blood 10/03/2021 7:23 AM 7:23 EDT AM EDT Abdon Arreguin MD POINT OF CARE TEST ORDERABLE S Performing Organization Address City/[facility]/[place] [address] Heparin (unfractionated) Level (10/03/2021 4:26 AM EDT) athologist Signature Heparin UFH 0.27 IU/mL [facility] LAB[facility]AT[facility] Comment: Heparin (anti-Xa) levels should be deter mined in a plasma sample that has been drawn 6 hours after a dose change to esther roximate steady-state for continuous heparin infusions. Indication specific Heparin (anti-Xa) le vels based on order set selection: Acute DVT or PE treatment: 0.3 ? 0.7 IU/mL Thrombosis Prevention (eg. atrial fibril lation, richmond-procedural bridging, mechanical valves): 0.3 ? 0.7 IU/mL Acute Coronary Syndrome: 0.3 ? 0.7 IU/mL Stroke Indications: 0.3 ? 0.5 IU/mL Ultra-low intensity (select indications in cardiac surgery): 0.1 ? 0.3 IU/mL Specimen Anatomical Collection Method Collection Time Receive d Time (Source) Location / / Volume Laterality Blood 10/03/2021 4:26 AM 08/25/202 2 4:41 EDT AM EDT Resulting Agency Comment Spec In Lab Abdon Arreguin MD HEMATOLOGY ORDERABLES Performing Organization Address City/State/[place] [address] (ABNORMAL) Differential, Automated (10/03/2021 4:26 AM EDT) [facility] Method Time Signature Neutrophils % 63.0 % [facility] Neutr Abs (ANC) 6.33 (H) 1.70 - [facility] 6.10 [facility] x10(3)/[facility] LABORATORY Lymphocytes % 18.6 % [facility] Lymphocytes Abs 1.9 0.9 - 3.2 [facility] x10(3)/[facility] LABORATORY Monocytes % 11.3 % [facility] Monocyte Abs 1.1 (H) 0.3 - 0.9 [facility] x10(3)/[facility] LABORATORY Eosinophils % 5.9 % [facility] Eosinophils Abs 0.6 (H) 0.0 - 0.4 [facility] x10(3)/[facility] LABORATORY Basophils % 0.5 % [facility] Basophils Abs 0.0 0.0 - 0.1 [facility] x10(3)/[facility] LABORATORY Immature Gran % 0.70 % [facility] Comment: Immature granulocytes(IG's)percentage an d absolute count will include metamyelocytes, myelocytes, and promyelo cytes. Blood smears from CBCs yielding IG's will be scanned manually for concor dance. If this scan disagrees with the automated IG or if promyelocytes are not ed, a manual differential will be performed. Anna Gran Abs 0.07 (H) 0.00 - 0.04 x10(3)/[facility] LABORATORY Specimen Anatomical Collection Method Collection Time Receive d Time (Source) Location / / Volume Laterality Blood 10/03/2021 4:26 AM 4:41 EDT AM EDT Resulting Agency Comment Spec In Lab Leilani CONTRERAS HEMATOLOGY ORDERABLES Performing Organization Address City/State/[place] [address] (ABNORMAL) Hemogram (10/03/2021 4:26 AM EDT) Analysis Performed At Patho logist Time Signature WBC 10.0 (H) 4.0 - 9.5 [facility] LABORATORY RBC 3.35 (L) 4.58 - EVELINE AUDREY 5.54 [facility] x10(6)/[facility] LABORATORY Hemoglobin 9.8 (L) 13.7 - [facility] 16.5 g/dL [facility] Hematocrit 29.4 (L) 40.5 - [facility] 48.5 % [facility] MCV 87.8 82.9 - [facility] 93.1 [facility] LABORATORY MCH 29.3 27.5 - [facility] 32.1 pg [facility] MCHC 33.3 32.0 - [facility] 35.7 g/dL [facility] Platelets 238 145 - 357 [facility] x10(3)/[facility] [facility] LABORATORY RDWSD 46.2 (H) 36.0 - [facility] 45.0 [facility] LABORATORY RDWCV 14.4 (H) 11.4 - [facility] 13.8 % [facility] LABORATORY MPV 11.0 7.6 - 12.9 [facility] LABORATORY nRBC % Auto 0.0 % [facility] LABORATORY nRBC Abs Auto 0.000 0.000 - [facility] 0.000 [facility] x10(3)/[facility] LABORATORY Specimen Anatomical Collection Method Collection Time Receive d Time (Source) Location / / Volume Laterality Blood 10/03/2021 4:26 AM 4:41 EDT AM EDT Resulting Agency Comment Spec In Lab Leilani CONTRERAS HEMATOLOGY ORDERABLES Performing Organization Address City/State/[place] [address] (ABNORMAL) Prothrombin Time (10/03/2021 4:26 AM EDT) P athologist Signature PT 13.7 (H) 9.4 - 12.5 [facility] LABORATORY INR 1.2 [facility] LABORATORY Comment: An INR <2.0 indicates adequate procoagul ant activity for hemostasis in most patients without underlying bleeding dis orders, though the INR may not adequately reflect hemostatic capacity i n patients with liver disease and synthetic impairment. The recommended ta rget INR range for therapeutic anticoagulation is 2.0 ? 3.0 for most applications, though lower and higher ranges may be appropriate depending on c linical circumstances. Specimen Anatomical Collection Method Collection Time Receive d Time (Source) Location / / Volume Laterality Blood 10/03/2021 4:26 AM 2 4:41 EDT AM EDT Resulting Agency Comment Spec In Lab Abdon Arreguin MD HEMATOLOGY ORDERABLES Performing Organization Address City/[facility]/[place] [address] Potassium (10/03/2021 4:26 AM EDT) athologist Signature Potassium 4.1 3.5 - 5.0 [facility] mmol/L [facility] LABORATORY Comment: Please note: ??Patients with WBC >100,00 0 may have falsely elevated Potassium levels. ??For accurate Potassium quantif ication in these patients send serum separator tube (gold top) for subsequent determinations. ??Contact the Clinical Chemistry Laboratory if there are any qu estions. Specimen Anatomical Collection Method Collection Time Receive d Time (Source) Location / / Volume Laterality Blood 10/03/2021 4:26 AM 2 4:41 EDT AM EDT Resulting Agency Comment Spec In Lab Abdon Arreguin MD CHEMISTRY ORDERABLES Performing Organization Address City/[facility]/ZIP [facility] Phon e Number [address] POCT Glucose (10/02/2021 8:15 PM EDT) athologist Signature POC Glucose 151 65 - 199 [facility] mg/dL [facility] LABORATORY Comment: Supplemental ranges: <140 mg/dL before meals <180 mg/dL all other times of the day Specimen Anatomical Collection Method Collection Time Receive d Time (Source) Location / / Volume Laterality Blood 10/02/2021 8:15 PM 2 8:15 EDT PM EDT Abdon Arreguin MD POINT OF CARE TEST ORDERABLE S Performing Organization Address City/[facility]/[place] [address] POCT Glucose (10/02/2021 4:14 PM EDT) athologist Signature POC Glucose 140 65 - 199 [facility] mg/dL [facility] LABORATORY Comment: Supplemental ranges: <140 mg/dL before meals <180 mg/dL all other times of the day Specimen Anatomical Collection Method Collection Time Receive d Time (Source) Location / / Volume Laterality Blood 10/02/2021 4:14 PM 2 4:14 EDT PM EDT Abdon Arreguin MD POINT OF CARE TEST ORDERABLE S Performing Organization Address City/[facility]/[place] [address] Potassium (10/02/2021 2:28 PM EDT) athologist Signature Potassium 4.2 3.5 - 5.0 [facility] mmol/L [facility] LABORATORY Comment: Please note: ??Patients with WBC >100,00 0 may have falsely elevated Potassium levels. ??For accurate Potassium quantif ication in these patients send serum separator tube (gold top) for subsequent determinations. ??Contact the Clinical Chemistry Laboratory if there are any qu estions. Specimen Anatomical Collection Method Collection Time Receive d Time (Source) Location / / Volume Laterality Blood 10/02/2021 2:28 PM 2 2:52 EDT PM EDT Resulting Agency Comment Spec In Lab Abdon Arreguin MD CHEMISTRY ORDERABLES Performing Organization Address City/[facility]/ZIP Code Phon e Number [address] POCT Glucose (10/02/2021 10:55 AM EDT) athologist Signature POC Glucose 153 65 - 199 [facility] mg/dL [facility] LABORATORY Comment: Supplemental ranges: <140 mg/dL before meals <180 mg/dL all other times of the day Specimen Anatomical Collection Method Collection Time Receive d Time (Source) Location / / Volume Laterality Blood 10/02/2021 10:55 10/02/2021 AM EDT 10:55 AM EDT Abdon Arreguin MD POINT OF CARE TEST ORDERABLE S Performing Organization Address City/[facility]/[place] [address] POCT Glucose (10/02/2021 7:33 AM EDT) athologist Signature POC Glucose 143 65 - 199 [facility] mg/dL [facility] LABORATORY Comment: Supplemental ranges: <140 mg/dL before meals <180 mg/dL all other times of the day Specimen Anatomical Collection Method Collection Time Receive d Time (Source) Location / / Volume Laterality Blood 10/02/2021 7:33 AM 2 7:33 EDT AM EDT Abdon Arreguin MD POINT OF CARE TEST ORDERABLE S Performing Organization Address City/[facility]/[place] [address] Heparin (unfractionated) Level (10/02/2021 3:59 AM EDT) athologist Signature Heparin UFH 0.24 IU/mL [facility] LABORATORY Comment: Heparin (anti-Xa) levels should be deter mined in a plasma sample that has been drawn 6 hours after a dose change to esther roximate steady-state for continuous heparin infusions. Indication specific Heparin (anti-Xa) le vels based on order set selection: Acute DVT or PE treatment: 0.3 ? 0.7 IU/mL Thrombosis Prevention (eg. atrial fibril lation, richmond-procedural bridging, mechanical valves): 0.3 ? 0.7 IU/mL Acute Coronary Syndrome: 0.3 ? 0.7 IU/mL Stroke Indications: 0.3 ? 0.5 IU/mL Ultra-low intensity (select indications in cardiac surgery): 0.1 ? 0.3 IU/mL Specimen Anatomical Collection Method Collection Time Receive d Time (Source) Location / / Volume Laterality Blood 10/02/2021 3:59 AM 2 4:25 EDT AM EDT Resulting Agency Comment Spec In Lab Abdon Arreguin MD HEMATOLOGY ORDERABLES Performing Organization Address City/State/[place] [address] (ABNORMAL) Differential, Automated (10/02/2021 3:59 AM EDT) [facility] Method Time Signature Neutrophils % 62.1 % [facility] LABORATORY Neutr Abs (ANC) 6.87 (H) 1.70 - [facility] 6.10 [facility] x10(3)/[facility] LABORATORY Lymphocytes % 18.4 % [facility] LABORATORY Lymphocytes Abs 2.0 0.9 - 3.2 [facility] x10(3)/[facility] LABORATORY Monocytes % 12.9 % [facility] LABORATORY Monocyte Abs 1.4 (H) 0.3 - 0.9 [facility] x10(3)/[facility] LABORATORY Eosinophils % 5.1 % [facility] LABORATORY Eosinophils Abs 0.6 (H) 0.0 - 0.4 [facility] x10(3)/[facility] LABORATORY Basophils % 0.9 % [facility] LABORATORY Basophils Abs 0.1 0.0 - 0.1 [facility] x10(3)/[facility] LABORATORY Immature Gran % 0.60 % [facility] LABORATORY Comment: Immature granulocytes(IG's)percentage an d absolute count will include metamyelocytes, myelocytes, and promyelo cytes. Blood smears from CBCs yielding IG's will be scanned manually for concor dance. If this scan disagrees with the automated IG or if promyelocytes are not ed, a manual differential will be performed. Anna Gran Abs 0.07 (H) 0.00 - 0.04 x10(3)/[facility] LABORATORY Specimen Anatomical Collection Method Collection Time Receive d Time (Source) Location / / Volume Laterality Blood 10/02/2021 3:59 AM 2 4:25 EDT AM EDT Resulting Agency Comment Spec In Lab Leilani CONTRERAS HEMATOLOGY ORDERABLES Performing Organization Address City/State/[place] [address] (ABNORMAL) Hemogram (10/02/2021 3:59 AM EDT) Analysis Performed At Patho logist Time Signature WBC 11.1 (H) 4.0 - 9.5 [facility] x[facility](3[facility] LABORATORY RBC 3.62 (L) 4.58 - [facility] 5.54 [facility] x10(6)/[facility] LABORATORY Hemoglobin 10.3 (L) 13.7 - [facility] 16.5 g/dL [facility] LABORATORY Hematocrit 31.7 (L) 40.5 - [facility] 48.5 % [facility] LABORATORY MCV 87.6 82.9 - [facility] 93.1 [facility] LABORATORY MCH 28.5 27.5 - [facility] 32.1 pg [facility] LABORATORY MCHC 32.5 32.0 - [facility] 35.7 g/dL [facility] LABORATORY Platelets 190 145 - 357 [facility] x10(3)/[facility] LABORATORY RDWSD 45.9 (H) 36.0 - [facility] 45.0 [facility] LABORATORY RDWCV 14.4 (H) 11.4 - [facility] 13.8 % [facility] LABORATORY MPV 11.1 7.6 - 12.9 [facility] LABORATORY nRBC % Auto 0.0 % [facility] LABORATORY nRBC Abs Auto 0.000 0.000 - [facility] AUDREY 0.000 [facility] x10(3)/[facility] LABORATORY Specimen Anatomical Collection Method Collection Time Receive d Time (Source) Location / / Volume Laterality Blood 10/02/2021 3:59 AM 4:25 EDT AM EDT Resulting Agency Comment Spec In Lab Leilani CONTRERAS HEMATOLOGY ORDERABLES Performing Organization Address City/State/[place] [address] (ABNORMAL) Prothrombin Time (10/02/2021 3:59 AM EDT) P athologist Signature PT 12.6 (H) 9.4 - 12.5 [facility] LABORATORY INR 1.1 [facility] LABORATORY Comment: An INR <2.0 indicates adequate procoagul ant activity for hemostasis in most patients without underlying bleeding dis orders, though the INR may not adequately reflect hemostatic capacity i n patients with liver disease and synthetic impairment. The recommended ta rget INR range for therapeutic anticoagulation is 2.0 ? 3.0 for most applications, though lower and higher ranges may be appropriate depending on c linical circumstances. Specimen Anatomical Collection Method Collection Time Receive d Time (Source) Location / / Volume Laterality Blood 10/02/2021 3:59 AM 2 4:25 EDT AM EDT Resulting Agency Comment Spec In Lab Abdon Arreguin MD HEMATOLOGY ORDERABLES Performing Organization Address City/[facility]/[place] [address] (ABNORMAL) Potassium (10/02/2021 3:59 AM EDT) athologist Signature Potassium 3.4 (L) 3.5 - 5.0 [facility] mmol/L [facility] LABORATORY Comment: Please note: ??Patients with WBC >100,00 0 may have falsely elevated Potassium levels. ??For accurate Potassium quantif ication in these patients send serum separator tube (gold top) for subsequent determinations. ??Contact the Clinical Chemistry Laboratory if there are any qu estions. Specimen Anatomical Collection Method Collection Time Receive d Time (Source) Location / / Volume Laterality Blood 10/02/2021 3:59 AM 2 4:25 EDT AM EDT Resulting Agency Comment Spec In Lab Abdon Arreguin MD CHEMISTRY ORDERABLES Performing Organization Address City/[facility]/[place] [address] POCT Glucose (10/01/2021 7:43 PM EDT) athologist Signature POC Glucose 152 65 - 199 [facility] mg/dL [facility] LABORATORY Comment: Supplemental ranges: <140 mg/dL before meals <180 mg/dL all other times of the day Specimen Anatomical Collection Method Collection Time Receive d Time (Source) Location / / Volume Laterality Blood 10/01/2021 7:43 PM 2 7:43 EDT PM EDT Abdon Arreguin MD POINT OF CARE TEST ORDERABLE S Performing Organization Address City/State/[place] [address] POCT Glucose (10/01/2021 5:08 PM EDT) athologist Signature POC Glucose 131 65 - 199 [facility] mg/dL [facility] LABORATORY Comment: Supplemental ranges: <140 mg/dL before meals <180 mg/dL all other times of the day Specimen Anatomical Collection Method Collection Time Receive d Time (Source) Location / / Volume Laterality Blood 10/01/2021 5:08 PM 2 5:08 EDT PM EDT Abdon Arreguin MD POINT OF CARE TEST ORDERABLE S Performing Organization Address City/State/[place] [address] POCT Glucose (10/01/2021 11:49 AM EDT) athologist Signature POC Glucose 196 65 - 199 [facility] mg/dL [facility] LABORATORY Comment: Supplemental ranges: <140 mg/dL before meals <180 mg/dL all other times of the day Specimen Anatomical Collection Method Collection Time Receive d Time (Source) Location / / Volume Laterality Blood 10/01/2021 11:49 10/01/2021 AM EDT 11:49 AM EDT Abdon Arreguin MD POINT OF CARE TEST ORDERABLE S Performing Organization Address City/State/[place] [address] POCT Glucose (10/01/2021 7:54 AM EDT) athologist Signature POC Glucose 159 65 - 199 [facility] mg/dL [facility] LABORATORY Comment: Supplemental ranges: <140 mg/dL before meals <180 mg/dL all other times of the day Specimen Anatomical Collection Method Collection Time Receive d Time (Source) Location / / Volume Laterality Blood 10/01/2021 7:54 AM 08/23/202 2 7:54 EDT AM EDT Abdon Arreguin MD POINT OF CARE TEST ORDERABLE S Performing Organization Address City/[facility]/[place] [address] Heparin (unfractionated) Level (10/01/2021 3:25 AM EDT) athologist Signature Heparin UFH 0.22 IU/mL [facility] LABORATORY Comment: Heparin (anti-Xa) levels should be deter mined in a plasma sample that has been drawn 6 hours after a dose change to esther roximate steady-state for continuous heparin infusions. Indication specific Heparin (anti-Xa) le vels based on order set selection: Acute DVT or PE treatment: 0.3 ? 0.7 IU/mL Thrombosis Prevention (eg. atrial fibril lation, richmond-procedural bridging, mechanical valves): 0.3 ? 0.7 IU/mL Acute Coronary Syndrome: 0.3 ? 0.7 IU/mL Stroke Indications: 0.3 ? 0.5 IU/mL Ultra-low intensity (select indications in cardiac surgery): 0.1 ? 0.3 IU/mL Specimen Anatomical Collection Method Collection Time Receive d Time (Source) Location / / Volume Laterality Blood 10/01/2021 3:25 AM 2 3:57 EDT AM EDT Resulting Agency Comment Spec In Lab Abdon Arreguin MD HEMATOLOGY ORDERABLES Performing Organization Address City/[facility]/[place] [address] (ABNORMAL) Differential, Automated (10/01/2021 3:25 AM EDT) [facility] Method Time Signature Neutrophils % 72.5 % [facility] LABORATORY Neutr Abs (ANC) 9.30 (H) 1.70 - [facility] 6.10 [facility] x10(3)/[facility] LABORATORY Lymphocytes % 12.3 % [facility] LABORATORY Lymphocytes Abs 1.6 0.9 - 3.2 [facility] x10(3)/[facility] LABORATORY Monocytes % 11.2 % [facility] LABORATORY Monocyte Abs 1.4 (H) 0.3 - 0.9 [facility] x10(3)/[facility] LABORATORY Eosinophils % 3.0 % [facility] LABORATORY Eosinophils Abs 0.4 0.0 - 0.4 [facility] x10(3)/[facility] LABORATORY Basophils % 0.5 % [facility] LABORATORY Basophils Abs 0.1 0.0 - 0.1 [facility] x10(3)/[facility] LABORATORY Immature Gran % 0.50 % [facility] LABORATORY Comment: Immature granulocytes(IG's)percentage an d absolute count will include metamyelocytes, myelocytes, and promyelo cytes. Blood smears from CBCs yielding IG's will be scanned manually for concor dance. If this scan disagrees with the automated IG or if promyelocytes are not ed, a manual differential will be performed. Anna Gran Abs 0.06 (H) 0.00 - 0.04 x10(3)/[facility] LABORATORY Specimen Anatomical Collection Method Collection Time Receive d Time (Source) Location / / Volume Laterality Blood 10/01/2021 3:25 AM 3:57 EDT AM EDT Resulting Agency Comment Spec In Lab Leilani CONTRERAS HEMATOLOGY ORDERABLES Performing Organization Address City/State/[place] [address] (ABNORMAL) Hemogram (10/01/2021 3:25 AM EDT) Analysis Performed At Patho logist Time Signature WBC 12.8 (H) 4.0 - 9.5 [facility] x10(3)/[facility] LABORATORY RBC 3.36 (L) 4.58 - [facility] 5.54 [facility] x10(6)/[facility] LABORATORY Hemoglobin 9.8 (L) 13.7 - [facility] 16.5 g/dL [facility] LABORATORY Hematocrit 29.4 (L) 40.5 - [facility] 48.5 % [facility] LABORATORY MCV 87.5 82.9 - [facility] 93.1 fL [facility] LABORATORY MCH 29.2 27.5 - [facility] 32.1 pg [facility] LABORATORY MCHC 33.3 32.0 - [facility] 35.7 g/dL [facility] LABORATORY Platelets 170 145 - 357 [facility] x10(3)/[facility] LABORATORY RDWSD 45.3 (H) 36.0 - [facility] 45.0 [facility] LABORATORY RDWCV 14.2 (H) 11.4 - [facility] AUDREY 13.8 % [facility] LABORATORY MPV 11.2 7.6 - 12.9 [facility] LABORATORY nRBC % Auto 0.0 % [facility] LABORATORY nRBC Abs Auto 0.000 0.000 - [facility] AUDREY 0.000 [facility] x10(3)/[facility] LABORATORY Specimen Anatomical Collection Method Collection Time Receive d Time (Source) Location / / Volume Laterality Blood 10/01/2021 3:25 AM 2 3:57 EDT AM EDT Resulting Agency Comment Spec In Lab Leilani CONTRERAS HEMATOLOGY ORDERABLES Performing Organization Address City/State/[place] [address] Prothrombin Time (10/01/2021 3:25 AM EDT) P athologist Signature PT 12.4 9.4 - 12.5 [facility] LABORATORY INR 1.1 [facility] LABORATORY Comment: An INR <2.0 indicates adequate procoagul ant activity for hemostasis in most patients without underlying bleeding dis orders, though the INR may not adequately reflect hemostatic capacity i n patients with liver disease and synthetic impairment. The recommended ta rget INR range for therapeutic anticoagulation is 2.0 ? 3.0 for most applications, though lower and higher ranges may be appropriate depending on c linical circumstances. Specimen Anatomical Collection Method Collection Time Receive d Time (Source) Location / / Volume Laterality Blood 10/01/2021 3:25 AM 2 3:57 EDT AM EDT Resulting Agency Comment Spec In Lab Abdon Arreguin MD HEMATOLOGY ORDERABLES Performing Organization Address City/State/[place] [address] (ABNORMAL) Potassium (10/01/2021 3:25 AM EDT) athologist Signature Potassium 3.4 (L) 3.5 - 5.0 [facility] mmol/L [facility] LABORATORY Comment: Please note: ??Patients with WBC >100,00 0 may have falsely elevated Potassium levels. ??For accurate Potassium quantif ication in these patients send serum separator tube (gold top) for subsequent determinations. ??Contact the Clinical Chemistry Laboratory if there are any qu estions. Specimen Anatomical Collection Method Collection Time Receive d Time (Source) Location / / Volume Laterality Blood 10/01/2021 3:25 AM 2 3:57 EDT AM EDT Resulting Agency Comment Spec In Lab Abdon Arreguin MD CHEMISTRY ORDERABLES Performing Organization Address City/[facility]/[place] [address] Heparin (unfractionated) Level (09/30/2021 8:23 PM EDT) athologist Signature Heparin UFH 0.24 IU/mL [facility] LABORATORY Comment: Heparin (anti-Xa) levels should be deter mined in a plasma sample that has been drawn 6 hours after a dose change to esther roximate steady-state for continuous heparin infusions. Indication specific Heparin (anti-Xa) le vels based on order set selection: Acute DVT or PE treatment: 0.3 ? 0.7 IU/mL Thrombosis Prevention (eg. atrial fibril lation, richmond-procedural bridging, mechanical valves): 0.3 ? 0.7 IU/mL Acute Coronary Syndrome: 0.3 ? 0.7 IU/mL Stroke Indications: 0.3 ? 0.5 IU/mL Ultra-low intensity (select indications in cardiac surgery): 0.1 ? 0.3 IU/mL Specimen Anatomical Collection Method Collection Time Receive d Time (Source) Location / / Volume Laterality Blood 09/30/2021 8:23 PM 2 8:30 EDT PM EDT Resulting Agency Comment Spec In Lab Abdon Arreguin MD HEMATOLOGY ORDERABLES Performing Organization Address City/State/ZIP Code Ph[place] [address] POCT Glucose (09/30/2021 7:42 PM EDT) athologist Signature POC Glucose 188 65 - 199 [facility] AUDREY mg/dL [facility] LABORATORY Comment: Supplemental ranges: <140 mg/dL before meals <180 mg/dL all other times of the day Specimen Anatomical Collection Method Collection Time Receive d Time (Source) Location / / Volume Laterality Blood 09/30/2021 7:42 PM 2 7:42 EDT PM EDT Abdon Arreguin MD POINT OF CARE TEST ORDERABLE S Performing Organization Address City/State/ZIP Code Phon e Number [address] POCT Glucose (09/30/2021 4:22 PM EDT) athologist Signature POC Glucose 164 65 - 199 [facility] mg/dL [facility] LABORATORY Comment: Supplemental ranges: <140 mg/dL before meals <180 mg/dL all other times of the day Specimen Anatomical Collection Method Collection Time Receive d Time (Source) Location / / Volume Laterality Blood 09/30/2021 4:22 PM 2 4:22 EDT PM EDT Abdon Arreguin MD POINT OF CARE TEST ORDERABLE S Performing Organization Address City/State/[place] [address] Heparin (unfractionated) Level (09/30/2021 1:48 PM EDT) athologist Signature Heparin UFH 0.23 IU/mL [facility] LABORATORY Comment: Heparin (anti-Xa) levels should be deter mined in a plasma sample that has been drawn 6 hours after a dose change to esther roximate steady-state for continuous heparin infusions. Indication specific Heparin (anti-Xa) le vels based on order set selection: Acute DVT or PE treatment: 0.3 ? 0.7 IU/mL Thrombosis Prevention (eg. atrial fibril lation, richmond-procedural bridging, mechanical valves): 0.3 ? 0.7 IU/mL Acute Coronary Syndrome: 0.3 ? 0.7 IU/mL Stroke Indications: 0.3 ? 0.5 IU/mL Ultra-low intensity (select indications in cardiac surgery): 0.1 ? 0.3 IU/mL Specimen Anatomical Collection Method Collection Time Receive d Time (Source) Location / / Volume Laterality Blood 09/30/2021 1:48 PM 2:24 EDT PM EDT Resulting Agency Comment Spec In Lab Abdon Arreguin MD HEMATOLOGY ORDERABLES Performing Organization Address City/State/ZIP Code Phon e Number [address] POCT Glucose (09/30/2021 11:39 AM EDT) athologist Signature POC Glucose 158 65 - 199 [facility] mg/dL [facility] Comment: Supplemental ranges: <140 mg/dL before meals <180 mg/dL all other times of the day Specimen Anatomical Collection Method Collection Time Receive d Time (Source) Location / / Volume Laterality Blood 09/30/2021 11:39 09/30/2021 AM EDT 11:39 AM EDT Abdon Arreguin MD POINT OF CARE TEST ORDERABLE S Performing Organization Address City/State/[place] [address] ECHOCARDIO[address] LMTD W CONTRAST W LMTD SPEC DOPP COLOR DOPP (09/30/2021 11:20 AM EDT) athologist Signature EF 65 [facility] Anatomical Region Laterality Modality Cardiac Other Specimen (Source) Anatomical Collection Method Collection Time Re ceived Time Location / / Volume Laterality 09/30/2021 10:39 AM EDT Narrative 09/30/2021 1:22 PM EDT ? Echocardiogram Report Name: [address] ? Study Date: 09/30/2021 10:39 AMBP: 128/89 mmHg ? Patient Location: [facility] C450 A : 1945 ? Height: 170 cm ? Account: [id number] Age: 76 yrs ? Weight: 115 kg Gender: Male ?BSA: 2.2 m2 Ordering Physician: KALLIE^ABDON^P Referring Physician: Abdon Arreguin Performed By: VINICIO Steiner RCS Exam Location: [facility]. Interpretation Summary Patient is in atrial fibrillation during the study. Technically difficult study. LV function is normal with LVEF of 65% w ith beat to beat variability. There is a possible focal apical wall motion abnorm ality. Right ventricular size and function are normal. There is no hemodynamically significant valvular disease present. No prior transthoracic echo for comparis on. Procedure Limited - [id number]. Image enhancement Optis on was used for left ventricular opacification. Suboptimal quality. Left Ventricle Left ventricular systolic function is no rmal. Left ventricular ejection fraction is estimated visually at 65%. There are segmental wall motion abnormalities. There is abnormal septal motion post sternotom y. Right Ventricle The right ventricle is probably normal i n size. Right ventricular function is probably normal. Left Atrium There were limited views of the interatr ial septum, but there did not appear to be any defect. Aortic Valve The aortic valve is probably trileaflet. The aortic valve is mildly thickened. There is aortic valve sclerosis without stenosis. There is no aortic regurgitation. Mitral Valve Mild thickening of the mitral leaflets. There is no mitral stenosis. There is trace mitral regurgitation. Tricuspid Valve The tricuspid valve is not well visualiz ed. There is trace tricuspid regurgitation. Hemodynamics Pulmonary artery hypertension could not be assessed due to inadequate tricuspid regurgitation jet. I ?WMSI = 1.06 ? % Normal = 9 4 ?Segments ??Size X - Cannot ?? 1 - Normal ?? 2 - ? 3 - Akinetic 4 - ?1-2 ? small Interpret ? Hypoki netic ?Dyskinetic ?? 3-5 ? moderate 5 - ? 6-14 ?large Aneurysmal ?15-16 ?? diffuse Procedure Note Kishan Scott MD - 09/30/2021Format ting of this note might be different from the original. Echocardiogram Report Name: [address] Study Date: 09/10 10:39 AMBP: 128/89 mmHg Patient Location: [address] : 1945 Height: 170 cm Account: [id number] Age: 76 yrs Weight: 115 kg Gender: Male BSA: 2.2 m2 Ordering Physician: [place] Referring Physician: Abdon Arreguin Performed By: Azar Argueta, [facility], RCS Exam Location: [facility]. Interpretation Summary Patient is in atrial fibrillation during the study. Technically difficult study. LV function is normal with LVEF of 65% w ith beat to beat variability. There is a possible focal apical wall motion abnorm ality. Right ventricular size and function are normal. There is no hemodynamically significant valvular disease present. No prior transthoracic echo for comparis on. Procedure Limited - [id number]. Image enhancement Optis on was used for left ventricular opacification. Suboptimal quality. Left Ventricle Left ventricular systolic function is no rmal. Left ventricular ejection fraction is estimated visually at 65%. There are segmental wall motion abnormalities. There is abnormal septal motion post sternotom y. Right Ventricle The right ventricle is probably normal i n size. Right ventricular function is probably normal. Left Atrium There were limited views of the interatr ial septum, but there did not appear to be any defect. Aortic Valve The aortic valve is probably trileaflet. The aortic valve is mildly thickened. There is aortic valve sclerosis without stenosis. There is no aortic regurgitation. Mitral Valve Mild thickening of the mitral leaflets. There is no mitral stenosis. There is trace mitral regurgitation. Tricuspid Valve The tricuspid valve is not well visualiz ed. There is trace tricuspid regurgitation. Hemodynamics Pulmonary artery hypertension could not be assessed due to inadequate tricuspid regurgitation jet. I WMSI = 1.06 % Normal = 94 Segments Size X - Cannot 1 - Normal 2 - 3 - Akinetic 4 - 1-2 small Interpret Hypokinetic Dyskinetic 3-5 mod erate 5 - 6-14 large Aneurysmal 15-16 diffuse Abdon Arreguin MD ECHO ORDERABLES XR Chest PA & Lateral (Generic) (09/30/2021 10:23 AM EDT) Anatomical Region Laterality Modality Chest N/A Digital Radiography Specimen (Source) Anatomical Location Collection Method / Collectio n Time Received Time / Laterality Volume Impressions 09/30/2021 11:39 AM EDT Trace left pleural effusion. I have personally reviewed the image(s) and the resident's interpretation and agree with the findings, Marilin Rocha MD at 09/30/2021 11:39 AM Thank you for letting us participate in the care of this patient. ??If you are a health care provider and have any questi ons regarding this report, please contact the number below. ??For patients who have questions please contact the health career consultant that requested your imaging first. ? Electronically signed by: Marilin Rocha MD , [facility] ([phone]), at 09/30/2021 11:39 AM Narrative 09/30/2021 11:39 AM EDT EXAMINATION: XR CHEST PA AND LATERAL (GENERIC) CLINICAL HISTORY: s/p cabg TECHNIQUE: PA and lateral views of the chest COMPARISON: 09/27/2021, 09/24/2021 FINDINGS: Interval removal of ETT, gastric tube, p ulmonary artery catheter, and mediastinal drains. Unchanged median sternotomy wires, surgi genet clips project in the region of the left cardiomediastinal silhouette. The c ardiomediastinal silhouette is not widened. Bilateral lungs are clear without mass o r consolidation. No pneumothorax. Slight blunting of the left costophrenic angle, with blunting of costophrenic angle most appreciated on lateral view. Dual-lead pacemaker left chest wall, darnell ds positions unchanged. No displaced rib fractures. Procedure Note Marilin Rocha MD - 09/30/2021 EXAMINATION: XR CHEST PA AND LATERAL (GE NERIC) CLINICAL HISTORY: s/p cabg TECHNIQUE: PA and lateral views of the chest COMPARISON: 09/27/2021, 09/24/2021 FINDINGS: Interval removal of ETT, gastric tube, p ulmonary artery catheter, and mediastinal drains. Unchanged median sternotomy wires, surgi genet clips project in the region of the left cardiomediastinal silhouette. The c ardiomediastinal silhouette is not widened. Bilateral lungs are clear without mass o r consolidation. No pneumothorax. Slight blunting of the left costophrenic angle, with blunting of costophrenic angle most appreciated on lateral view. Dual-lead pacemaker left chest wall, darnell ds positions unchanged. No displaced rib fractures. IMPRESSION Trace left pleural effusion. I have personally reviewed the image(s) and the resident's interpretation and agree with the findings, Mariiln Rocha MD at 09/30/2021 11:39 AM Thank you for letting us participate in the care of this patient. If you are a health care provider and have any questi ons regarding this report, please contact the number below. For patients w ho have questions please contact the health career consultant that requested your imaging first. Electronically signed by: Marilin Rocha MD , [facility] ([phone]), at 09/30/2021 11:39 AM Abdon Arreguin MD IMG DX ORDERABLES Prothrombin Time (09/30/2021 9:12 AM EDT) athologist Signature PT 12.2 9.4 - 12.5 [facility] LABORATORY INR 1.1 [facility] LABORATORY Comment: An INR <2.0 indicates adequate procoagul ant activity for hemostasis in most patients without underlying bleeding dis orders, though the INR may not adequately reflect hemostatic capacity i n patients with liver disease and synthetic impairment. The recommended ta rget INR range for therapeutic anticoagulation is 2.0 ? 3.0 for most applications, though lower and higher ranges may be appropriate depending on c linical circumstances. Specimen Anatomical Collection Method Collection Time Receive d Time (Source) Location / / Volume Laterality Blood 09/30/2021 9:12 AM 9:51 EDT AM EDT Resulting Agency Comment Spec In Lab Abdon Arreguin MD HEMATOLOGY ORDERABLES Performing Organization Address City/State/[place] [address] (ABNORMAL) Differential, Automated (09/30/2021 3:25 AM EDT) [facility] Method Time Signature Neutrophils % 80.1 % [facility] LABORATORY Neutr Abs (ANC) 11.70 (H) 1.70 - [facility] 6.10 [facility] x10(3)/[facility] LABORATORY Lymphocytes % 9.9 % [facility] LABORATORY Lymphocytes Abs 1.4 0.9 - 3.2 [facility] x10(3)/[facility] LABORATORY Monocytes % 9.5 % [facility] LABORATORY Monocyte Abs 1.4 (H) 0.3 - 0.9 [facility] x10(3)/[facility] LABORATORY Eosinophils % 0.0 % [facility] LABORATORY Eosinophils Abs 0.0 0.0 - 0.4 [facility] x10(3)/[facility] LABORATORY Basophils % 0.1 % [facility] LABORATORY Basophils Abs 0.0 0.0 - 0.1 [facility] x10(3)/[facility] LABORATORY Immature Gran % 0.40 % [facility] LABORATORY Comment: Immature granulocytes(IG's)percentage an d absolute count will include metamyelocytes, myelocytes, and promyelo cytes. Blood smears from CBCs yielding IG's will be scanned manually for concor dance. If this scan disagrees with the automated IG or if promyelocytes are not ed, a manual differential will be performed. Anna Gran Abs 0.06 (H) 0.00 - 0.04 x10(3)/[facility] LABORATORY Specimen Anatomical Collection Method Collection Time Receive d Time (Source) Location / / Volume Laterality Blood 09/30/2021 3:25 AM 3:41 EDT AM EDT Resulting Agency Comment Spec In Lab Che Hayden MD HEMATOLOGY ORDERABLES Performing Organization Address City/[facility]/[place] [address] (ABNORMAL) Hemogram (09/30/2021 3:25 AM EDT) Analysis Performed At Patho logist Time Signature WBC 14.6 (H) 4.0 - 9.5 [facility] x[facility](3[facility] LABORATORY RBC 3.65 (L) 4.58 - [facility] 5.54 [facility] x10(6)/[facility] LABORATORY Hemoglobin 10.6 (L) 13.7 - [facility] 16.[facility] g/dL [facility] LAB[facility]ATORY Hematocrit 32.5 (L) 40.5 - [facility] 48.5 % [facility] LABORATORY MCV 89.0 82.9 - [facility] 93.1 [facility] LABORATORY MCH 29.0 27.5 - [facility] 32.1 pg [facility] LABORATORY MCHC 32.6 32.0 - [facility] 35.7 g/dL [facility] LABORATORY Platelets 143 (L) 145 - 357 [facility] x10(3)/[facility] LABORATORY RDWSD 45.8 (H) 36.0 - [facility] 45.0 [facility] LABORATORY RDWCV 14.1 (H) 11.4 - [facility] 13.8 % [facility] LABORATORY MPV 10.6 7.6 - 12.9 [facility] LABORATORY nRBC % Auto 0.0 % [facility] LABORATORY nRBC Abs Auto 0.000 0.000 - [facility] 0.000 [facility] x10(3)/[facility] LABORATORY Specimen Anatomical Collection Method Collection Time Receive d Time (Source) Location / / Volume Laterality Blood 09/30/2021 3:25 AM 2 3:41 EDT AM EDT Resulting Agency Comment Spec In Lab Che Hayden MD HEMATOLOGY ORDERABLES Performing Organization Address City/State/[place] [address] (ABNORMAL) Basic Metabolic Panel (non-fasting) (09/30/2021 3:25 AM EDT) P athologist Signature Glucose Lvl 142 65 - 199 [facility] mg/dL [facility] Comment: Diabetes: >=200 mg/dL plus symp toms BUN 14 10 - 20 mg/dL [facility] LABORATORY Creatinine 0.71 (L) 0.80 - 1.50 mg/dL [facility] LABORATORY Sodium 138 135 - 145 mmol/L [facility] LABORATORY Potassium 4.0 3.5 - 5.0 mmol/L [facility] LABORATORY Comment: Please note: ??Patients with WBC >100,00 0 may have falsely elevated Potassium levels. ??For accurate Potassium quantif ication in these patients send serum separator tube (gold top) for subsequent determinations. ??Contact the Clinical Chemistry Laboratory if there are any qu estions. Chloride 104 98 - 107 mmol/L [facility] LABORATORY CO2 24 22 - 31 mmol/L [facility] LABORATORY Anion Gap 10 5 - 15 mmol/L [facility] LABORATORY Calcium 8.3 (L) 8.5 - 10.5 mg/dL [facility] LABORATORY Comment: result rechecked-sf Estimated GFR 96 >=60 mL/min/1.73 m?? [facility] LABORATORY Comment: This patient's estimated GFR was calcula angelica using the 2020 CKD-EPI equation. The estimated GFR can vary from the brianne ured GFR by up to 30% in the absence of rapidly changing kidney function. Assess ment of the estimated GFR is not appropriate when creatinine concentratio ns are rapidly changing. For clinical situations in which a more precise estim ate of GFR is necessary, consider alternative methods of GFR estimation mercer ch as a 24-hour urine creatinine clearance. Assignment of CKD stage 1-5 for patients with an eGFR near the transition point between stages may be based on clinical assessment of muscle mass and symptoms in addition to eGFR. Specimen Anatomical Collection Method Collection Time Receive d Time (Source) Location / / Volume Laterality Blood 09/30/2021 3:25 AM 2 3:41 EDT AM EDT Resulting Agency Comment Spec In Lab Abdon Arreguin MD CHEMISTRY ORDERABLES Performing Organization Address City/State/[place] [address] (ABNORMAL) Differential, Automated (09/29/2021 8:59 PM EDT) Patholo gist Method Time Signature Neutrophils % 89.4 % [facility] LABORATORY Neutr Abs (ANC) 14.75 (H) 1.70 - [facility] 6.10 [facility] x10(3)/[facility] LABORATORY Lymphocytes % 4.2 % [facility] LABORATORY Lymphocytes Abs 0.7 (L) 0.9 - 3.2 [facility] x10(3)/[facility] LABORATORY Monocytes % 5.6 % [facility] LABORATORY Monocyte Abs 0.9 0.3 - 0.9 [facility] x10(3)/[facility] LABORATORY Eosinophils % 0.1 % [facility] LABORATORY Eosinophils Abs 0.0 0.0 - 0.4 [facility] x10(3)/[facility] LABORATORY Basophils % 0.2 % [facility] LABORATORY Basophils Abs 0.0 0.0 - 0.1 [facility] x10(3)/[facility] LABORATORY Immature Gran % 0.50 % [facility] LABORATORY Comment: Immature granulocytes(IG's)percentage an d absolute count will include metamyelocytes, myelocytes, and promyelo cytes. Blood smears from CBCs yielding IG's will be scanned manually for concor dance. If this scan disagrees with the automated IG or if promyelocytes are not ed, a manual differential will be performed. Anna Gran Abs 0.08 (H) 0.00 - 0.04 x10(3)/[facility] LABORATORY Specimen Anatomical Collection Method Collection Time Receive d Time (Source) Location / / Volume Laterality Blood 09/29/2021 8:59 PM 9:10 EDT PM EDT Resulting Agency Comment Spec In Lab Sam CONTRERAS HEMATOLOGY ORDERABLES Performing Organization Address City/State/[place] [address] (ABNORMAL) Hemogram (09/29/2021 8:59 PM EDT) Analysis Performed At Patho logist Time Signature WBC 16.5 (H) 4.0 - 9.5 [facility] x10(3)/[facility] LABORATORY RBC 3.88 (L) 4.58 - [facility] 5.54 [facility] x10(6)/[facility] LABORATORY Hemoglobin 11.1 (L) 13.7 - [facility] 16.[facility] g/dL [facility] LABORATORY Hematocrit 33.9 (L) 40.5 - [facility] 48.5 % [facility] LABORATORY MCV 87.4 82.9 - [facility] 93.1 [facility] LABORATORY MCH 28.6 27.5 - [facility] 32.1 pg [facility] LABORATORY MCHC 32.7 32.0 - [facility] 35.7 g/dL [facility] LABORATORY Platelets 145 145 - 357 [facility] x10(3)/[facility] LABORATORY RDWSD 45.8 (H) 36.0 - [facility] 45.0 [facility] LABORATORY RDWCV 14.3 (H) 11.4 - [facility] 13.8 % [facility] LABORATORY MPV 11.0 7.6 - 12.9 [facility] LABORATORY nRBC % Auto 0.0 % [facility] LABORATORY nRBC Abs Auto 0.000 0.000 - [facility] 0.000 [facility] x10(3)/[facility] LABORATORY Specimen Anatomical Collection Method Collection Time Receive d Time (Source) Location / / Volume Laterality Blood 09/29/2021 8:59 PM 2 9:10 EDT PM EDT Resulting Agency Comment Spec In Lab Sam CONTRERAS HEMATOLOGY ORDERABLES Performing Organization Address City/State/[place] [address] (ABNORMAL) BLOOD GAS 2 ARTERIAL (09/29/2021 1:32 PM EDT) Analysis Performed At Patho logist Time Signature pH Art 7.36 7.35 - [facility] 7.45 [facility] LABORATORY pCO2 Art 39 35 - 45 [facility] mmHg [facility] LABORATORY pO2 Art 209 (H) 85 - 104 [facility] mmHg [facility] LABORATORY HCO3 Art 21.2 20.0 - [facility] 26.0 [facility] mmol/L [facility] LABORATORY BE Art -4.0 (L) -3.0 - 3.0 [facility] mmol/L [facility] LABORATORY Hgb Blood Gas 11.5 (L) 13.7 - [facility] 16.5 g/dL [facility] LABORATORY O2HB Art 98.5 (H) 94.0 - [facility] 97.0 % [facility] LABORATORY COHB Art 0.4 % [facility] LABORATORY Comment: Nonsmokers: 0.5-1.5% COHB Smokers: Variable, but usually less than 10% Toxic: 20-30% COHB Lethal: Greater than 60% COHB METHB Art 0.3 <=1.5 % [facility] LABORATORY Na Whole Blood 134 (L) 135 - 145 mmol/L [facility] LABORATORY K Whole Blood 3.8 3.5 - 5.0 mmol/L [facility] LABORATORY Comment: Please note: Patients with WBC >100,000 may have falsely elevated Potassium levels. Contact the Clinical Chemistry L aboratory if there are any questions. ICa Whole Blood 1.12 (L) 1.15 - 1.33 mmol/L [facility] LABORATORY Comment: Note: ??Total bilirubin higher than 20 m g/dL may lead to falsely low ionized calcium. CL Whole Blood 104 98 - 107 mmol/L [facility] LABORATORY Gluc Whole Bld 134 65 - 199 mg/dL [facility] LABORATORY Comment: Diabetes: >=200 mg/dL plus symp toms. Lactate WB 1.4 0.5 - 2.2 mmol/L [facility] LABORATORY FIO2 Art 60 % [facility] LABORATORY Flow Art 1.0 LPM [facility] LABORATORY PF Ratio Art 348 [facility] LABORATORY Temp Art 38.2 Celsius [facility] LABORATORY Specimen Anatomical Collection Method Collection Time Receive d Time (Source) Location / / Volume Laterality Blood 09/29/2021 1:32 PM 1:32 EDT PM EDT Abdon Arreguin MD CHEMISTRY ORDERABLES Performing Organization Address City/State/[place] [address] Arterial Duplex Leg, Unil (09/29/2021 12:08 PM EDT) Component Value Ref Test Analysis Performed At Patholo gist Range Method Time Signature VB Text Department: Vascular Surgery Lab [facility] Report Patient: [id number] ([address]) CPT: 61125 Referring Physician: JOSELITO WASHBURN ?? Phone: Indications: acute LLE pain, loss of pulse, ? occlusion Findings: Left ?PSV ( cm/s) ??EDV ?? Common Femoral Artery, Proximal ? 27 ?4 ?? Superficial Femoral Artery, Proximal ? 0 ?0 ?? Interpretation: LEFT: Patent common femoral artery with no evidence of steno sis. The superficial femoral artery i s occluded at the origin with flow reconstituting in the distal thigh. Comparison: ??No previous study in our vascular lab da tabase for comparison. Electronically Signed by: JOSELITO WASHBURN on 2021-09-30 03:22: 38 PM VB Text End of Report [facility] Report Specimen (Source) Anatomical Collection Method Collection Time Re ceived Time Location / / Volume Laterality 09/29/2021 12:08 PM EDT Joselito Washburn MD VASCULAR ORDERABLES Performing Organization Address City/State/ZIP Code Phon e Number [facility] Potassium (09/29/2021 5:51 AM EDT) P athologist Signature Potassium 3.9 3.5 - 5.0 [facility] mmol/L [facility] LABORATORY Comment: Please note: ??Patients with WBC >100,00 0 may have falsely elevated Potassium levels. ??For accurate Potassium quantif ication in these patients send serum separator tube (gold top) for subsequent determinations. ??Contact the Clinical Chemistry Laboratory if there are any qu estions. Specimen Anatomical Collection Method Collection Time Receive d Time (Source) Location / / Volume Laterality Blood 09/29/2021 5:51 AM 2 6:00 EDT AM EDT Resulting Agency Comment Spec In Lab Abdon Arreguin MD CHEMISTRY ORDERABLES Performing Organization Address City/[facility]/ZIP Code Phon e Number [address] POCT Glucose (09/28/2021 4:29 PM EDT) athologist Signature POC Glucose 134 65 - 199 [facility] mg/dL [facility] LABORATORY Comment: Supplemental ranges: <140 mg/dL before meals <180 mg/dL all other times of the day Specimen Anatomical Collection Method Collection Time Receive d Time (Source) Location / / Volume Laterality Blood 09/28/2021 4:29 PM 2 4:29 EDT PM EDT Abdon Arreguin MD POINT OF CARE TEST ORDERABLE S Performing Organization Address City/[facility]/ZIP Code Phon e Number [address] POCT Glucose (09/28/2021 12:19 PM EDT) athologist Signature POC Glucose 149 65 - 199 [facility] mg/dL [facility] [facility] Comment: Supplemental ranges: <140 mg/dL before meals <180 mg/dL all other times of the day Specimen Anatomical Collection Method Collection Time Receive d Time (Source) Location / / Volume Laterality Blood 09/28/2021 12:19 09/28/2021 PM EDT 12:19 PM EDT Abdon Arreguin MD POINT OF CARE TEST ORDERABLE S Performing Organization Address City/[facility]/ZIP Code Phon e Number [address] POCT Glucose (09/28/2021 10:57 AM EDT) athologist Signature POC Glucose 138 65 - 199 EVELINE [place]RE[place] mg/dL [facility] Comment: Supplemental ranges: <140 mg/dL before meals <180 mg/dL all other times of the day Specimen Anatomical Collection Method Collection Time Receive d Time (Source) Location / / Volume Laterality Blood 09/28/2021 10:57 09/28/2021 AM EDT 10:57 AM EDT Abdon Arreguin MD POINT OF CARE TEST ORDERABLE S Performing Organization Address City/State/[place] [address] POCT Glucose (09/28/2021 9:49 AM EDT) athologist Signature POC Glucose 131 65 - 199 EVELINE AUDREY mg/dL [facility] Comment: Supplemental ranges: <140 mg/dL before meals <180 mg/dL all other times of the day Specimen Anatomical Collection Method Collection Time Receive d Time (Source) Location / / Volume Laterality Blood 09/28/2021 9:49 AM 2 9:49 EDT AM EDT Abdon Arreguin MD POINT OF CARE TEST ORDERABLE S Performing Organization Address City/State/[place] [address] POCT Glucose (09/28/2021 8:16 AM EDT) athologist Signature POC Glucose 144 65 - 199 [place] mg/dL [facility] Comment: Supplemental ranges: <140 mg/dL before meals <180 mg/dL all other times of the day Specimen Anatomical Collection Method Collection Time Receive d Time (Source) Location / / Volume Laterality Blood 09/28/2021 8:16 AM 2 8:16 EDT AM EDT Abdon Arreguin MD POINT OF CARE TEST ORDERABLE S Performing Organization Address City/State/[place] [address] POCT Glucose (09/28/2021 7:00 AM EDT) athologist Signature POC Glucose 144 65 - 199 EVELINE AUDRE[place] mg/dL [facility] Comment: Supplemental ranges: <140 mg/dL before meals <180 mg/dL all other times of the day Specimen Anatomical Collection Method Collection Time Receive d Time (Source) Location / / Volume Laterality Blood 09/28/2021 7:00 AM 2 7:00 EDT AM EDT Abdon Arreguin MD POINT OF CARE TEST ORDERABLE S Performing Organization Address City/State/[place] [address] POCT Glucose (09/28/2021 6:41 AM EDT) athologist Signature POC Glucose 128 65 - 199 EVELINE AUDREY mg/dL [facility] Comment: Supplemental ranges: <140 mg/dL before meals <180 mg/dL all other times of the day Specimen Anatomical Collection Method Collection Time Receive d Time (Source) Location / / Volume Laterality Blood 09/28/2021 6:41 AM 2 6:41 EDT AM EDT Abdon Arreguin MD POINT OF CARE TEST ORDERABLE S Performing Organization Address City/[facility]/ZIP Code Phon e Number [address] POCT Glucose (09/28/2021 5:56 AM EDT) athologist Signature POC Glucose 154 65 - 199 EVELINE AUDREY mg/dL [facility] Comment: Supplemental ranges: <140 mg/dL before meals <180 mg/dL all other times of the day Specimen Anatomical Collection Method Collection Time Receive d Time (Source) Location / / Volume Laterality Blood 09/28/2021 5:56 AM 2 5:56 EDT AM EDT Abdon Arreguin MD POINT OF CARE TEST ORDERABLE S Performing Organization Address City/[facility]/[place] [address] POCT Glucose (09/28/2021 4:58 AM EDT) athologist Signature POC Glucose 150 65 - 199 EVELINE AUDREY mg/dL [facility] Comment: Supplemental ranges: <140 mg/dL before meals <180 mg/dL all other times of the day Specimen Anatomical Collection Method Collection Time Receive d Time (Source) Location / / Volume Laterality Blood 09/28/2021 4:58 AM 2 4:58 EDT AM EDT Abdon Arreguin MD POINT OF CARE TEST ORDERABLE S Performing Organization Address City/State/[place] [address] [facility] [address] POCT Glucose (09/28/2021 3:58 AM EDT) P athologist Signature POC Glucose 153 65 - 199 [facility] Comment: Supplemental ranges: <140 mg/dL before meals <180 mg/dL all other times of the day Specimen Anatomical Collection Method Collection Time Receive d Time (Source) Location / / Volume Laterality Blood 09/28/2021 3:58 AM 3:58 EDT AM EDT Abdon Arreguin MD POINT OF CARE TEST ORDERABLE S Performing Organization Address City/State/ZIP Code Phon e Number [address] (ABNORMAL) Differential, Automated (09/28/2021 2:15 AM EDT) Patholo gist Method Time Signature Neutrophils % 87.6 % [facility] LABORATORY Neutr Abs (ANC) 11.58 (H) 1.70 - [facility] 6.10 [facility] x10(3)/[facility] L LABORATORY Lymphocytes % 5.2 % [facility] Lymphocytes Abs 0.7 (L) 0.9 - 3.2 [facility] x10(3)/[facility] LABORATORY Monocytes % 6.7 % [facility] Monocyte Abs 0.9 0.3 - 0.9 [facility] x10(3)/[facility] LABORATORY Eosinophils % 0.0 % [facility] Eosinophils Abs 0.0 0.0 - 0.4 [facility] x10(3)/[facility] LABORATORY Basophils % 0.2 % [facility] Basophils Abs 0.0 0.0 - 0.1 [facility] x10(3)/[facility] LABORATORY Immature Gran % 0.30 % [facility] Comment: Immature granulocytes(IG's)percentage an d absolute count will include metamyelocytes, myelocytes, and promyelo cytes. Blood smears from CBCs yielding IG's will be scanned manually for concor dance. If this scan disagrees with the automated IG or if promyelocytes are not ed, a manual differential will be performed. Anna Gran Abs 0.04 0.00 - 0.04 x10(3)/[facility] LAB[facility]ATORY Specimen Anatomical Collection Method Collection Time Receive d Time (Source) Location / / Volume Laterality Blood 09/28/2021 2:15 AM 2:27 EDT AM EDT Resulting Agency Comment Spec In Lab Davie CONTRERAS HEMATOLOGY ORDERABLES Performing Organization Address City/State/[place] [address] (ABNORMAL) Hemogram (09/28/2021 2:15 AM EDT) Analysis Performed At Patho logist Time Signature WBC 13.2 (H) 4.0 - 9.5 [facility] x10(3)/[facility] LABORATORY RBC 3.73 (L) 4.58 - [facility] 5.54 [facility] x10(6)/[facility] LABORATORY Hemoglobin 10.9 (L) 13.7 - [facility] 16.5 g/dL [facility] Hematocrit 33.1 (L) 40.5 - [facility] 48.5 % [facility] MCV 88.7 82.9 - [facility] 93.1 [facility] LABORATORY MCH 29.2 27.5 - [facility] 32.1 pg [facility] MCHC 32.9 32.0 - [facility] 35.7 g/dL [facility] Platelets 145 145 - 357 [facility] x10(3)/[facility] LABORATORY RDWSD 46.3 (H) 36.0 - [facility] 45.0 [facility] LABORATORY RDWCV 14.3 (H) 11.4 - [facility] 13.8 % [facility] MPV 10.3 7.6 - 12.9 [facility] LABORATORY nRBC % Auto 0.0 % [facility]ORY nRBC Abs Auto 0.000 0.000 - [facility] 0.000 [facility] x10(3)/[facility] LABORATORY Specimen Anatomical Collection Method Collection Time Receive d Time (Source) Location / / Volume Laterality Blood 09/28/2021 2:15 AM 2 2:27 EDT AM EDT Resulting Agency Comment Spec In Lab Davie CONTRERAS HEMATOLOGY ORDERABLES Performing Organization Address City/State/[place] [address] (ABNORMAL) Basic Metabolic Panel (non-fasting) (09/28/2021 2:15 AM EDT) athologist Signature Glucose Lvl 193 65 - 199 [facility] mg/dL [facility] Comment: Diabetes: >=200 mg/dL plus symp toms BUN 13 10 - 20 mg/dL [facility] LAB[facility]ATORY Creatinine 0.73 (L) 0.80 - 1.50 mg/dL [facility] LABORATORY Sodium 139 135 - 145 mmol/L [facility]ORY Potassium 4.3 3.5 - 5.0 mmol/L [facility] Comment: Please note: ??Patients with WBC >100,00 0 may have falsely elevated Potassium levels. ??For accurate Potassium quantif ication in these patients send serum separator tube (gold top) for subsequent determinations. ??Contact the Clinical Chemistry Laboratory if there are any qu estions. Chloride 108 (H) 98 - 107 mmol/L [facility] CO2 21 (L) 22 - 31 mmol/L [facility] Anion Gap 10 5 - 15 mmol/L [facility] Calcium 7.5 (L) 8.5 - 10.5 mg/dL [facility] Estimated GFR 95 >=60 mL/min/1.73 m?? [facility] Comment: This patient's estimated GFR was calcula angelica using the 2020 CKD-EPI equation. The estimated GFR can vary from the brianne ured GFR by up to 30% in the absence of rapidly changing kidney function. Assess ment of the estimated GFR is not appropriate when creatinine concentratio ns are rapidly changing. For clinical situations in which a more precise estim ate of GFR is necessary, consider alternative methods of GFR estimation mercer ch as a 24-hour urine creatinine clearance. Assignment of CKD stage 1-5 for patients with an eGFR near the transition point between stages may be based on clinical assessment of muscle mass and symptoms in addition to eGFR. Specimen Anatomical Collection Method Collection Time Receive d Time (Source) Location / / Volume Laterality Blood 09/28/2021 2:15 AM 2 2:27 EDT AM EDT Resulting Agency Comment Spec In Lab Abdon Arreguin MD CHEMISTRY ORDERABLES Performing Organization Address City/State/[place] [address] (ABNORMAL) Troponin (09/28/2021 2:15 AM EDT) athologist Signature Troponin-T 0.31 (H) 0.00 - [place] 0.00 ng/mL [facility] Comment: The 99th percentile for Troponin T is le ss than 0.01 ng/mL, any detectable cTnT concentration using this assay should be considered elevated. According to the third universal definit ion of myocardial infarction the following criteria with a clinical prese ntation consistent with acute myocardial ischemia meets the diagnosis for a myocardial infarction (W[place]). Detection of a rise and/or fall of cTnT, with at least one value greater than the 99th percentile (> or = 0.01) and wi th at least one of the following ?? Symptoms of ischemia ?? New or presumed new significant ST-se gment-T wave (ST-T) changes or new left bundle branch block (LBBB) ?? Development of pathologic Q waves in the ECG ?? Imaging evidence of new loss of viabl e myocardium or new regional wall motion abnormality ?? Identification of an intracoronary th rombus by angiography or autopsy Samples for cTnT testing should be obtai franco serially upon first assessment and again 3 to 6 hours later. If the clinica l suspicion is high and previous samples have been negative an additional sample may be indicated. Reference: Third [employer] Definition of Myocardial Infarction. Journal of the [employer] 2012;60:1581-98 Specimen Anatomical Collection Method Collection Time Receive d Time (Source) Location / / Volume Laterality Blood 09/28/2021 2:15 AM 2 2:27 EDT AM EDT Resulting Agency Comment Spec In Lab Abdon Arreguin MD CHEMISTRY ORDERABLES Performing Organization Address City/State/ZIP Code Phon e Number [address] POCT Glucose (09/28/2021 2:12 AM EDT) athologist Signature POC Glucose 183 65 - 199 EVELINE SANFORDAUDREY mg/dL [facility] Comment: Supplemental ranges: <140 mg/dL before meals <180 mg/dL all other times of the day Specimen Anatomical Collection Method Collection Time Receive d Time (Source) Location / / Volume Laterality Blood 09/28/2021 2:12 AM 2:12 EDT AM EDT Abdon Arreguin MD POINT OF CARE TEST ORDERABLE S Performing Organization Address City/[facility]/ZIP Code Phon e Number [address] POCT Glucose (09/28/2021 12:13 AM EDT) athologist Signature POC Glucose 182 65 - 199 EVELINE [place] mg/dL [facility] Comment: Supplemental ranges: <140 mg/dL before meals <180 mg/dL all other times of the day Specimen Anatomical Collection Method Collection Time Receive d Time (Source) Location / / Volume Laterality Blood 09/28/2021 12:13 09/28/2021 AM EDT 12:13 AM EDT Abdon Arreguin MD POINT OF CARE TEST ORDERABLE S Performing Organization Address City/[facility]/ZIP Code Phon e Number [address] POCT Glucose (09/27/2021 10:07 PM EDT) athologist Signature POC Glucose 184 65 - 199 EVELINE AUDREY mg/dL [facility] Comment: Supplemental ranges: <140 mg/dL before meals <180 mg/dL all other times of the day Specimen Anatomical Collection Method Collection Time Receive d Time (Source) Location / / Volume Laterality Blood 09/27/2021 10:07 09/27/2021 PM EDT 10:07 PM EDT Abdon Arreguin MD POINT OF CARE TEST ORDERABLE S Performing Organization Address City/State/[place] [address] (ABNORMAL) Hemoglobin (09/27/2021 9:30 PM EDT) P athologist Signature Hemoglobin 11.2 (L) 13.7 - [facility] 16.5 g/dL [facility] Specimen Anatomical Collection Method Collection Time Receive d Time (Source) Location / / Volume Laterality Blood 09/27/2021 9:30 PM 2 9:34 EDT PM EDT Resulting Agency Comment Spec In Lab Abdon Arreguin MD HEMATOLOGY ORDERABLES Performing Organization Address City/[facility]/[place] [address] Potassium (09/27/2021 9:30 PM EDT) athologist Signature Potassium 4.2 3.5 - 5.0 [facility] mmol/L [facility] Comment: Please note: ??Patients with WBC >100,00 0 may have falsely elevated Potassium levels. ??For accurate Potassium quantif ication in these patients send serum separator tube (gold top) for subsequent determinations. ??Contact the Clinical Chemistry Laboratory if there are any qu estions. Specimen Anatomical Collection Method Collection Time Receive d Time (Source) Location / / Volume Laterality Blood 09/27/2021 9:30 PM 2 9:34 EDT PM EDT Resulting Agency Comment Spec In Lab Abdon Arreguin MD CHEMISTRY ORDERABLES Performing Organization Address City/[facility]/[place] [address] (ABNORMAL) BLOOD GAS 2 ARTERIAL (09/27/2021 7:45 PM EDT) Analysis Performed At Patho logist Time Signature pH Art 7.31 (L) 7.35 - [facility] 7.45 [facility] pCO2 Art 37 35 - 45 [facility] mmHg [facility] pO2 Art 117 (H) 85 - 104 [facility] LABORATORY HCO3 Art 18.3 (L) 20.0 - [facility] 26.0 [facility] mmol/[facility] LABORATORY BE Art -7.9 (L) -3.0 - 3.0 [facility] mmol/L [facility] Hgb Blood Gas 12.7 (L) 13.7 - [facility] 16.5 g/dL [facility] O2HB Art 96.8 94.0 - [facility] 97.0 % [facility] COHB Art 0.4 % [facility] Comment: Nonsmokers: 0.5-1.5% COHB Smokers: Variable, but usually less than 10% Toxic: 20-30% COHB Lethal: Greater than 60% COHB METHB Art 0.7 <=1.5 % [facility] Na Whole Blood 140 135 - 145 mmol/L [facility] K Whole Blood 3.9 3.5 - 5.0 mmol/L [facility] Comment: Please note: Patients with WBC >100,000 may have falsely elevated Potassium levels. Contact the Clinical Chemistry L aboratory if there are any questions. ICa Whole Blood 1.10 (L) 1.15 - 1.33 mmol/L [facility] Comment: Note: ??Total bilirubin higher than 20 m g/dL may lead to falsely low ionized calcium. CL Whole Blood 108 (H) 98 - 107 mmol/L [facility] Gluc Whole Bld 173 65 - 199 mg/dL [facility] Comment: Diabetes: >=200 mg/dL plus symp toms. Lactate WB 1.7 0.5 - 2.2 mmol/L [facility] FIO2 Art 40 % [facility] PF Ratio Art 292 [facility] LAB[facility]ORY Specimen Anatomical Collection Method Collection Time Receive d Time (Source) Location / / Volume Laterality Blood 09/27/2021 7:45 PM 7:45 EDT PM EDT Abdon Arreguin MD CHEMISTRY ORDERABLES Performing Organization Address City/State/[place] [address] POCT Glucose (09/27/2021 7:19 PM EDT) P athologist Signature POC Glucose 149 65 - 199 EVELINE [place] mg/dL [facility] Comment: Supplemental ranges: <140 mg/dL before meals <180 mg/dL all other times of the day Specimen Anatomical Collection Method Collection Time Receive d Time (Source) Location / / Volume Laterality Blood 09/27/2021 7:19 PM 7:19 EDT PM EDT Abdon Arreguin MD POINT OF CARE TEST ORDERABLE S Performing Organization Address City/State/[place] [address] XR Chest One View (09/27/2021 6:22 PM EDT) Anatomical Region Laterality Modality Chest N/A Digital Radiography Specimen (Source) Anatomical Location Collection Method / Collectio n Time Received Time / Laterality Volume Impressions 09/27/2021 6:36 PM EDT Pulmonary artery catheter needs advancing, otherwise expected postsurgical changes Thank you for letting us participate in the care of this patient. ??If you are a health care provider and have any questi ons regarding this report, please contact the number below. ??For patients who have questions please contact the health career consultant that requested your imaging first. ? Electronically signed by: Angela Blanton, [facility] ([phone]), at 09/27/2021 6:36 PM Narrative 09/27/2021 6:36 PM EDT EXAMINATION: XR CHEST ONE VIEW CLINICAL HISTORY: s/p cabg TECHNIQUE: 1 view of the chest COMPARISON: 09/24/2021 FINDINGS: The ETT and gastric tubes in appropriate position. The RIGHT internal jugular pulmonary artery catheter is likely with in the pulmonary outflow track and not in the pulmonary artery. Mediastinal dano ins in the lower portion the mediastinum There are extensive postsurgical changes to the LEFT mediastinum. The lungs are well-inflated and clear. No pulmonary ed la nena, pneumothorax or large effusion. Dual-lead pacemaker lead positions uncha nged Procedure Note Betty Anderson MD - 09/27/2021Formattin g of this note might be different from the original. EXAMINATION: XR CHEST ONE VIEW CLINICAL HISTORY: s/p cabg TECHNIQUE: 1 view of the chest COMPARISON: 09/24/2021 FINDINGS: The ETT and gastric tubes in appropriate position. The RIGHT internal jugular pulmonary artery catheter is likely with in the pulmonary outflow track and not in the pulmonary artery. Mediastinal dano ins in the lower portion the mediastinum There are extensive postsurgical changes to the LEFT mediastinum. The lungs are well-inflated and clear. No pulmonary ed la nena, pneumothorax or large effusion. Dual-lead pacemaker lead positions uncha nged IMPRESSION Pulmonary artery catheter needs advancin g, otherwise expected postsurgical changes Thank you for letting us participate in the care of this patient. If you are a health care provider and have any questi ons regarding this report, please contact the number below. For patients w ho have questions please contact the health career consultant that requested your imaging first. Electronically signed by: Angela Blanton, [facility] ([phone]), at 09/27/2021 6:36 PM Abdon Arreguin MD IMG DX ORDERABLES (ABNORMAL) BLOOD GAS 2 ARTERIAL (09/27/2021 5:58 PM EDT) P athologist Signature pH Art 7.29 7.35 - [facility] (Critical) 7.45 [facility] Comment: Noted by surveyor instrument assistant. pCO2 Art 44 35 - 45 mmHg [facility] pO2 Art 462 (H) 85 - 104 mmHg [facility] HCO3 Art 20.7 20.0 - 26.0 mmol/L [facility] BE Art -5.9 (L) -3.0 - 3.0 mmol/L [facility] Hgb Blood Gas 12.9 (L) 13.7 - 16.5 g/dL [facility] O2HB Art 98.5 (H) 94.0 - 97.0 % [facility] COHB Art 0.4 % [facility] Comment: Nonsmokers: 0.5-1.5% COHB Smokers: Variable, but usually less than 10% Toxic: 20-30% COHB Lethal: Greater than 60% COHB METHB Art 0.7 <=1.5 % [facility] Na Whole Blood 138 135 - 145 mmol/L [facility] K Whole Blood 3.9 3.5 - 5.0 mmol/L [facility] Comment: Please note: Patients with WBC >100,000 may have falsely elevated Potassium levels. Contact the Clinical Chemistry L aboratory if there are any questions. ICa Whole Blood 1.15 1.15 - 1.33 mmol/L [facility] Comment: Note: ??Total bilirubin higher than 20 m g/dL may lead to falsely low ionized calcium. CL Whole Blood 105 98 - 107 mmol/L [facility] Gluc Whole Bld 166 65 - 199 mg/dL [facility] Comment: Diabetes: >=200 mg/dL plus symp toms. Lactate WB 1.6 0.5 - 2.2 mmol/L [facility] FIO2 Art 100 % [facility] PF Ratio Art 462 [facility] Specimen Anatomical Collection Method Collection Time Receive d Time (Source) Location / / Volume Laterality Blood 09/27/2021 5:58 PM 2 5:58 EDT PM EDT Abdon Arreguin MD CHEMISTRY ORDERABLES Performing Organization Address City/State/[place] [address] EKG 12 Lead (09/27/2021 5:47 PM EDT) Component Value Ref Range Test Analysis Performed Pathologis t Method Time At Signature Ventricular rate 80 BPM MUSE SYSTEM Atrial Rate 80 BPM MUSE SYSTEM P-R Interval 298 ms MUSE SYSTEM QRS Duration 148 ms MUSE SYSTEM Q-T Interval 482 ms MUSE SYSTEM QTC Calculated 555 ms MUSE SYSTEM (Bezet) Calculated P [place] 102 degrees MUSE SYSTEM Calculated R [place] 102 degrees MUSE SYSTEM Calculated T [place] -46 degrees MUSE SYSTEM INTERPRETATION Suspect arm lead reversal, interpreta tion assumes no reversal MUSE SYSTEM Sinus rhythm with 1st degree A-V block Right bundle branch block Marked T-wave abnormality, consider inferolateral ischemia Abnormal ECG When compared with ECG of 24-SEP-2021 13:08, Sinus rhythm has replaced Electronic ventricular pacemaker Confirmed by MD GONZALEZ SALVATORE ([id number]) on 09/30/2021 1:18:33 PM Specimen Anatomical Collection Method Collection Time Receive d Time (Source) Location / / Volume Laterality 09/27/2021 5:47 PM 2 1:18 EDT PM EDT Abdon Arreguin MD ECG ORDERABLES Performing Organization Address City/[facility]/ZIP Code Phon e Number MUSE SYSTEM (ABNORMAL) Thrombin time (09/27/2021 4:37 PM EDT) athologist Signature Thrombin Time 19 (H) 10 - 17 [facility] LABORATORY Comment: OR Result called by ?? PARSAD OR Result s read back by: ? Lyndsay Richard at 2021-09-27 16:57:25 A prolongation in the thrombin time (>20 seconds) may be indicative of hypofibrinogenemia or dysfibrinogenemia. The thrombin time will be prolonged, often markedly so, by the presence of he shaheed or direct thrombin inhibitors (argatroban, bivalirudin, dabigatran) in the specimen. Specimen Anatomical Collection Method Collection Time Receive d Time (Source) Location / / Volume Laterality Blood 09/27/2021 4:37 PM 2 4:43 EDT PM EDT Resulting Agency Comment Spec In Lab Henny Castanon MD HEMATOLOGY ORDERABLES Performing Organization Address City/State/[place] [address] Fibrinogen (09/27/2021 4:37 PM EDT) athologist Signature Fibrinogen 247 200 - 393 [facility] mg/dL [facility] Comment: OR Result called by ?? PARSAD OR Result s read back by: ? Lyndsay Richard at 2021-09-27 16:57:25 A fibrinogen level >100 mg/dL is adequat e for hemostasis in most patients without underlying bleeding disorders. Specimen Anatomical Collection Method Collection Time Receive d Time (Source) Location / / Volume Laterality Blood 09/27/2021 4:37 PM 2 4:43 EDT PM EDT Resulting Agency Comment Spec In Lab Henny Castanon MD HEMATOLOGY ORDERABLES Performing Organization Address City/[facility]/[place] [address] APTT (09/27/2021 4:37 PM EDT) athologist Signature PTT 33 25 - 37 sec [facility]ORATORY Comment: OR Result called by ?? PARSAD OR Result s read back by: ? Lyndsay Richard at 2021-09-27 16:57:25 The PTT is NOT appropriate for heparin m onitoring. Use the Anti-Xa level for heparin monitoring (HEP UFH) or LMWH mon itoring (HEP LMW). A PTT less than 37 seconds generally indicates adequate hem ostasis. Specimen Anatomical Collection Method Collection Time Receive d Time (Source) Location / / Volume Laterality Blood 09/27/2021 4:37 PM 2 4:43 EDT PM EDT Resulting Agency Comment Spec In Lab Henny Castanon MD HEMATOLOGY ORDERABLES Performing Organization Address City/[facility]/[place] [address] (ABNORMAL) Prothrombin Time (09/27/2021 4:37 PM EDT) athologist Signature PT 17.8 (H) 9.4 - 12.5 [facility] LABORATORY Comment: OR Result called by ?? PARSAD OR Result s read back by: ? Lyndsay Richard at 2021-09-27 16:57:25 INR 1.6 [facility] LABORATORY Comment: OR Result called by ?? PARSAD OR Result s read back by: ? Lyndsay Richard at 2021-09-27 16:57:25 An INR <2.0 indicates adequate procoagul ant activity for hemostasis in most patients without underlying bleeding dis orders, though the INR may not adequately reflect hemostatic capacity i n patients with liver disease and synthetic impairment. The recommended ta rget INR range for therapeutic anticoagulation is 2.0 ? 3.0 for most applications, though lower and higher ranges may be appropriate depending on c linical circumstances. Specimen Anatomical Collection Method Collection Time Receive d Time (Source) Location / / Volume Laterality Blood 09/27/2021 4:37 PM 4:43 EDT PM EDT Resulting Agency Comment Spec In Lab Henny Castanon MD HEMATOLOGY ORDERABLES Performing Organization Address City/State/ZIP Code Phon e Number [place] [id number] (ABNORMAL) Hemogram (09/27/2021 4:37 PM EDT) P athologist Signature WBC 17.4 (H) 4.0 - 9.5 [facility] x10(3)/[facility] LABORATORY RBC 3.34 (L) 4.58 - [facility] 5.54 [facility] x10(6)/[facility] LABORATORY Hemoglobin 9.6 (L) 13.7 - [facility] 16.5 g/dL [facility] Hematocrit 29.5 (L) 40.5 - [facility] 48.5 % [facility] Comment: This result has been called to NAYLA BARR by Heladio Ordonez on 09 27 2021 at 1648, and has been read back. MCV 88.3 82.9 - 93.1 fL [facility]ORATORY MCH 28.7 27.5 - 32.1 pg [facility] LABORATORY MCHC 32.5 32.0 - 35.7 g/dL [facility] LABORATORY Platelets 152 145 - 357 x10(3)/[facility] LABORATORY RDWSD 44.7 36.0 - 45.0 fL [facility] LABORATORY RDWCV 13.9 (H) 11.4 - 13.8 % [facility] LABORATORY MPV 10.3 7.6 - 12.9 fL [facility] LABORATORY nRBC % Auto 0.0 % [facility] LABORATORY nRBC Abs Auto 0.000 0.000 - 0.000 x10(3)/mcL [facility] LABORATORY Specimen Anatomical Collection Method Collection Time Receive d Time (Source) Location / / Volume Laterality Blood 09/27/2021 4:37 PM 4:43 EDT PM EDT Resulting Agency Comment Spec In Lab Henny Castanon MD HEMATOLOGY ORDERABLES Performing Organization Address City/State/[place] [address] (ABNORMAL) BLOOD GAS 2 ARTERIAL (09/27/2021 4:33 PM EDT) Analysis Performed At Patho logist Time Signature pH Art 7.36 7.35 - [facility] 7.45 [facility] LABORATORY pCO2 Art 41 35 - 45 [facility] LABORATORY pO2 Art 165 (H) 85 - 104 [facility] LABORATORY HCO3 Art 22.6 20.0 - [facility] 26.0 [facility] mmol/L [facility] LABORATORY BE Art -2.9 -3.0 - 3.0 [facility] mmol/L [facility] Hgb Blood Gas 10.3 (L) 13.7 - [facility] 16.5 g/dL [facility] O2HB Art 98.0 (H) 94.0 - [facility] 97.0 % [facility] COHB Art 0.3 % [facility]ATORY Comment: Nonsmokers: 0.5-1.5% COHB Smokers: Variable, but usually less than 10% Toxic: 20-30% COHB Lethal: Greater than 60% COHB METHB Art 0.3 <=1.5 % [facility] LABORATORY Na Whole Blood 134 (L) 135 - 145 mmol/L [facility] LABORATORY K Whole Blood 3.8 3.5 - 5.0 mmol/L [facility] LABORATORY Comment: Please note: Patients with WBC >100,000 may have falsely elevated Potassium levels. Contact the Clinical Chemistry L aboratory if there are any questions. ICa Whole Blood 1.12 (L) 1.15 - 1.33 mmol/L [facility] Comment: Note: ??Total bilirubin higher than 20 m g/dL may lead to falsely low ionized calcium. CL Whole Blood 108 (H) 98 - 107 mmol/L [facility]ORATORY Gluc Whole Bld 155 65 - 199 mg/dL [facility] LABORATORY Comment: Diabetes: >=200 mg/dL plus symp toms. Lactate WB 1.4 0.5 - 2.2 mmol/L [facility]OR[facility]ORY Specimen Anatomical Collection Method Collection Time Receive d Time (Source) Location / / Volume Laterality Blood 09/27/2021 4:33 PM 2 4:33 EDT PM EDT Abdon Arreguin MD CHEMISTRY ORDERABLES Performing Organization Address [facility]/ZIP [facility] Phon e Number [address] Prepare cryoprecipitate (09/27/2021 4:20 PM EDT) P athologist Signature Dispensed? Yes [facility]OR[facility]ORY Specimen Anatomical Collection Method Collection Time Receive d Time (Source) Location / / Volume Laterality Blood 09/27/2021 4:20 PM 2 4:19 EDT PM EDT Abdon Arreguin MD BLOOD BANK ORDERABLES Performing Organization Address City/[facility] [place] [address] (ABNORMAL) BLOOD GAS 2 ARTERIAL (09/27/2021 3:48 PM EDT) Analysis Performed At Patho logist Time Signature pH Art 7.39 7.35 - [facility] 7.45 [facility] pCO2 Art 38 35 - 45 [facility] mmHg [facility] pO2 Art 482 (H) 85 - 104 [facility] mmHg [facility] HCO3 Art 22.6 20.0 - [facility] 26.0 [facility] mmol/L [facility] LABOR[facility] BE Art -2.3 -3.0 - 3.0 [facility] mmol/L [facility] Hgb Blood Gas 10.0 (L) 13.7 - [facility] 16.5 g/dL [facility] O2HB Art 98.9 (H) 94.0 - [facility] 97.0 % [facility] COHB Art 0.3 % [facility] Comment: Nonsmokers: 0.5-1.5% COHB Smokers: Variable, but usually less than 10% Toxic: 20-30% COHB Lethal: Greater than 60% COHB METHB Art 0.3 <=1.5 % [facility] LABOR[facility]ORY Na Whole Blood 133 (L) 135 - 145 mmol/L [facility] K Whole Blood 4.2 3.5 - 5.0 mmol/L [facility] Comment: Please note: Patients with WBC >100,000 may have falsely elevated Potassium levels. Contact the Clinical Chemistry L aboratory if there are any questions. ICa Whole Blood 0.99 (L) 1.15 - 1.33 mmol/L [facility] Comment: Note: ??Total bilirubin higher than 20 m g/dL may lead to falsely low ionized calcium. CL Whole Blood 105 98 - 107 mmol/L [facility] Gluc Whole Bld 144 65 - 199 mg/dL [facility] Comment: Diabetes: >=200 mg/dL plus symp toms. Lactate WB 1.4 0.5 - 2.2 mmol/L [facility] Specimen Anatomical Collection Method Collection Time Receive d Time (Source) Location / / Volume Laterality Blood 09/27/2021 3:48 PM 2 3:48 EDT PM EDT Abdon Arreguin MD CHEMISTRY ORDERABLES Performing Organization Address City/State/[place] [address] Platelet count (09/27/2021 3:40 PM EDT) athologist Signature Platelets 164 145 - 357 [facility] x10(3)/[facility] LABORATORY Plat Immature 3.8 0.0 - 7.4 [facility] % % [facility] Comment: Limitation of the Immature Platelet Frac tion (IPF)-May be less reliable when the platelet count is less than 58m901/u L due to statistical imprecision. The IPF value provides an assessment of the Bone Marrow production status. ??It is useful in differentiating Thrombocyto penia caused by platelet destruction/consumption versus decreased production. It also helps to determine the imminent release of platelets and ca n be therefore a helpful parameter in Chemotherapy and Bone marrow transplant patients. ELEVATED IPF value: ?? When the bone marrow is in a state of over production such as when increased destruction and consumption are the unde rlying issue. ?? When the marrow is recovering post ch emotherapy or bone marrow transplant. LOW to NORMAL IPF value: ?? When the bone marrow in not respondin g and is in a decreased state of production. References: [employer] The Clinical Value of the Immature Platelet Fraction (IPF) in Cell Recovery Document Number [id number] 07/2010 [employer] The Role of the Imm ature Platelet Fraction (IPF) in the Differential Diagnosis of Thrombocytopen ia, Document [id number] V05/01/22 P006/22 Specimen Anatomical Collection Method Collection Time Receive d Time (Source) Location / / Volume Laterality Blood 09/27/2021 3:40 PM 2 3:55 EDT PM EDT Resulting Agency Comment Spec In Lab Abdon Arreguin MD HEMATOLOGY ORDERABLES Performing Organization Address City/State/ZIP Code Phon e Number [address] (ABNORMAL) Hemoglobin (09/27/2021 3:40 PM EDT) athologist Signature Hemoglobin 9.3 (L) 13.7 - 16.5 [facility] g/dL [facility] Comment: This result has been called to LYNDSAY HARRIS by Ambrosio Pena on 09 27 2021 at 1602, and has been read back. Specimen Anatomical Collection Method Collection Time Receive d Time (Source) Location / / Volume Laterality Blood 09/27/2021 3:40 PM 2 3:55 EDT PM EDT Resulting Agency Comment Spec In Lab Abdon Arreguin MD HEMATOLOGY ORDERABLES Performing Organization Address City/State/ZIP Code Phon e Number [address] Fibrinogen (09/27/2021 3:40 PM EDT) athologist Signature Fibrinogen 235 200 - 393 [facility] mg/dL [facility] Comment: OR Result called by ?? LITTLE OR Result s read back by: ? Eyad Khan at 2021-09-27 16:13:41 A fibrinogen level >100 mg/dL is adequat e for hemostasis in most patients without underlying bleeding disorders. Specimen Anatomical Collection Method Collection Time Receive d Time (Source) Location / / Volume Laterality Blood 09/27/2021 3:40 PM 2 3:55 EDT PM EDT Resulting Agency Comment Spec In Lab Abdon Arreguin MD HEMATOLOGY ORDERABLES Performing Organization Address City/State/ZIP Code Phon e Number [address] (ABNORMAL) Hematocrit (09/27/2021 3:40 PM EDT) athologist Signature Hematocrit 27.7 (L) 40.5 - [facility] 48.5 % [facility] Comment: This result has been called to LYNDSAY HARRIS by Ambrosio Pena on 09 27 2021 at 1602, and has been read back. Specimen Anatomical Collection Method Collection Time Receive d Time (Source) Location / / Volume Laterality Blood 09/27/2021 3:40 PM 2 3:55 EDT PM EDT Resulting Agency Comment Spec In Lab Abdon Arreguin MD HEMATOLOGY ORDERABLES Performing Organization Address City/State/[place] [address] (ABNORMAL) BLOOD GAS 2 ARTERIAL (09/27/2021 3:16 PM EDT) Analysis Performed At Patho logist Time Signature pH Art 7.41 7.35 - [facility] 7.45 [facility] pCO2 Art 36 35 - 45 [facility] mmHg [facility] LAB[facility]ATORY pO2 Art 525 (H) 85 - 104 [facility] LABORATORY HCO3 Art 22.5 20.0 - [facility] 26.0 [facility] mmol/L [facility] LABORATORY BE Art -2.1 -3.0 - 3.0 [facility] mmol/L [facility] Hgb Blood Gas 10.1 (L) 13.7 - [facility] 16.5 g/dL [facility] O2HB Art 98.8 (H) 94.0 - [facility] 97.0 % [facility] COHB Art 0.3 % [facility]ORY Comment: Nonsmokers: 0.5-1.5% COHB Smokers: Variable, but usually less than 10% Toxic: 20-30% COHB Lethal: Greater than 60% COHB METHB Art 0.3 <=1.5 % [facility] LABORATORY Na Whole Blood 132 (L) 135 - 145 mmol/L [facility]OR[facility] K Whole Blood 4.0 3.5 - 5.0 mmol/L [facility] LABOR[facility]ORY Comment: Please note: Patients with WBC >100,000 may have falsely elevated Potassium levels. Contact the Clinical Chemistry L aboratory if there are any questions. ICa Whole Blood 1.00 (L) 1.15 - 1.33 mmol/L [facility] Comment: Note: ??Total bilirubin higher than 20 m g/dL may lead to falsely low ionized calcium. CL Whole Blood 105 98 - 107 mmol/L [facility] Gluc Whole Bld 141 65 - 199 mg/dL [facility] Comment: Diabetes: >=200 mg/dL plus symp toms. Lactate WB 1.4 0.5 - 2.2 mmol/L [facility] LABOR[facility]ORY Specimen Anatomical Collection Method Collection Time Receive d Time (Source) Location / / Volume Laterality Blood 09/27/2021 3:16 PM 2 3:16 EDT PM EDT Abdon Arreguin MD CHEMISTRY ORDERABLES Performing Organization Address City/State/[place] [address] (ABNORMAL) BLOOD GAS 2 ARTERIAL (09/27/2021 2:46 PM EDT) Analysis Performed At Patho logist Time Signature pH Art 7.36 7.35 - [facility] 7.45 [facility]ORY pCO2 Art 44 35 - 45 [facility] LABORATORY pO2 Art 554 (H) 85 - 104 [facility] LABORATORY HCO3 Art 24.6 20.0 - [facility] 26.0 [facility] mmol/[facility] LABORATORY BE Art -0.8 -3.0 - 3.0 [facility] mmol/L [facility] Hgb Blood Gas 9.6 (L) 13.7 - [facility] 16.5 g/dL [facility] O2HB Art 99.0 (H) 94.0 - [facility] 97.0 % [facility] COHB Art 0.3 % [facility]ORY Comment: Nonsmokers: 0.5-1.5% COHB Smokers: Variable, but usually less than 10% Toxic: 20-30% COHB Lethal: Greater than 60% COHB METHB Art 0.3 <=1.5 % [facility] LABORATORY Na Whole Blood 133 (L) 135 - 145 mmol/L [facility] LABOR[facility]ORY K Whole Blood 4.2 3.5 - 5.0 mmol/L [facility] LABOR[facility]ORY Comment: Please note: Patients with WBC >100,000 may have falsely elevated Potassium levels. Contact the Clinical Chemistry L aboratory if there are any questions. ICa Whole Blood 0.97 (L) 1.15 - 1.33 mmol/L [facility] Comment: Note: ??Total bilirubin higher than 20 m g/dL may lead to falsely low ionized calcium. CL Whole Blood 105 98 - 107 mmol/L [facility] Gluc Whole Bld 128 65 - 199 mg/dL [facility] Comment: Diabetes: >=200 mg/dL plus symp toms. Lactate WB 1.1 0.5 - 2.2 mmol/L [facility]ORY Specimen Anatomical Collection Method Collection Time Receive d Time (Source) Location / / Volume Laterality Blood 09/27/2021 2:46 PM 2 2:46 EDT PM EDT Abdon Arreguin MD CHEMISTRY ORDERABLES Performing Organization Address City/State/[place] [address] BLOOD GAS 2 ARTERIAL (09/27/2021 1:47 PM EDT) athologist Signature pH Art 7.37 7.35 - [facility] 7.45 [facility] pCO2 Art 44 35 - 45 [facility] mmHg [facility] pO2 Art 102 85 - 104 [facility] LABORATORY HCO3 Art 25.0 20.0 - [facility] 26.0 [facility] mmol/L [facility] LABORATORY BE Art -0.3 -3.0 - 3.0 [facility] mmol/L [facility] Hgb Blood Gas 13.7 13.7 - [facility] 16.5 g/dL [facility] O2HB Art 96.5 94.0 - [facility] 97.0 % [facility] COHB Art 0.7 % [facility]ORY Comment: Nonsmokers: 0.5-1.5% COHB Smokers: Variable, but usually less than 10% Toxic: 20-30% COHB Lethal: Greater than 60% COHB METHB Art 0.3 <=1.5 % [facility] LAB[facility]ORY Na Whole Blood 139 135 - 145 mmol/L [facility] K Whole Blood 3.6 3.5 - 5.0 mmol/L [facility] Comment: Please note: Patients with WBC >100,000 may have falsely elevated Potassium levels. Contact the Clinical Chemistry L aboratory if there are any questions. ICa Whole Blood 1.15 1.15 - 1.33 mmol/L [facility]ORY Comment: Note: ??Total bilirubin higher than 20 m g/dL may lead to falsely low ionized calcium. CL Whole Blood 105 98 - 107 mmol/L [facility]ORY Gluc Whole Bld 116 65 - 199 mg/dL [facility] Comment: Diabetes: >=200 mg/dL plus symp toms. Lactate WB 1.1 0.5 - 2.2 mmol/L [facility]ORY Specimen Anatomical Collection Method Collection Time Receive d Time (Source) Location / / Volume Laterality Blood 09/27/2021 1:47 PM 2 1:47 EDT PM EDT Abdon Arreguin MD CHEMISTRY ORDERABLES Performing Organization Address City/State/ZIP Code [place] [address] Transesophageal Echo/OR (09/27/2021 12:56 PM EDT) Anatomical Region Laterality Modality Cardiac Other Specimen (Source) Anatomical Collection Method Collection Time Re ceived Time Location / / Volume Laterality 09/27/2021 12:56 PM EDT Narrative 09/27/2021 4:32 PM EDT ? Version: 1 Name: [address] ?Study Date: 09/27/2021, 12: 56 PM ?Patient Location: SDP : 1945 (MM/DD/YYYY) ? Age: 76 Years Gender: Male Ordering Physician: [id number]^KALLIE^ABDON^P^^^^^EPIC^^^^PROV ID Referring Physician: [id number]^UNKNOWN^^^^^^ ^EPIC^^^^PROVID ? Conclusions Intraoperative GIUSEPPE performed to confirm and quantify cardiovascular diagnoses, assess need for additional/alternative p rocedures, and facilitate cannulation for cardiopulmonary bypass. Post-procedure T EE performed to guide separation from CPB, evaluate surgical repairs and cardiac fu nction. GIUSEPPE probe placed and removed atraumatically. Pre-CPB 1. estimated LVEF>55% , no regional wall motion abnormalities. 2. Normal RV systolic function. 3. Mild aortic stenosis (BHUPENDRA 1.6 cm2 by continuity equation, DI 0.66), trace central AI. 4. Mild MR, mild TR, trace P I. 5. In Afib. No clot visualized in MERY. N o PFO on CFD. 6. Grade II atheromatous disease of the ascending aorta and distal arch; grade IV atheromas in the descending aorta. Post CPB 1. estimated LVEF>55% , no regional wall motion abnormalities. 2. RV systolic function remains normal. 3. Remainder of the exam unchanged. No a ortic dissection post-cannulation. No pericardial effusion. Pre Procedure Findings Post Procedure Findings Reading Physician ?Henny Castanon MD ?? 09/27/2021, 4: 32 PM Ordering Physician: ABDON ARREGUIN Referring Physician: UNKNOWN Procedure Note Henny Castanon MD - 09/27/2021 Version: 1 Name: [address]Y [address] Study Date: 09/09, 12: 56 PM Patient Location: [facility] : 1945 (/DD/YYYY) Age: 76 Years Gender: Male Ordering Physician: [id number]^KALLIE^ABDON^P^^^^^EPIC^^^^PROV ID Referring Physician: [id number]^UNKNOWN^^^^^^ ^EPIC^^^^PROVID Conclusions Intraoperative GIUSEPPE performed to confirm and quantify cardiovascular diagnoses, assess need for additional/alternative p rocedures, and facilitate cannulation for cardiopulmonary bypass. Post-procedure T EE performed to guide separation from CPB, evaluate surgical repairs and cardiac fu nction. GIUSEPPE probe placed and removed atraumatically. Pre-CPB 1. estimated LVEF>55% , no regional wall motion abnormalities. 2. Normal RV systolic function. 3. Mild aortic stenosis (BHUPENDRA 1.6 cm2 by continuity equation, DI 0.66), trace central AI. 4. Mild MR, mild TR, trace P I. 5. In Afib. No clot visualized in MERY. N o PFO on CFD. 6. Grade II atheromatous disease of the ascending aorta and distal arch; grade IV atheromas in the descending aorta. Post CPB 1. estimated LVEF>55% , no regional wall motion abnormalities. 2. RV systolic function remains normal. 3. Remainder of the exam unchanged. No a ortic dissection post-cannulation. No pericardial effusion. Pre Procedure Findings Post Procedure Findings Reading Physician Henny Castanon MD 09/27/2021, 4: 32 PM Ordering Physician: ABDON ARREGUIN Referring Physician: UNKNOWN Abdon Arreguin MD ECHO ORDERABLES Prepare RBC (09/27/2021 12:05 PM EDT) athologist Signature Dispensed? Yes [facility] LABORATORY Specimen Anatomical Collection Method Collection Time Receive d Time (Source) Location / / Volume Laterality Blood 09/27/2021 12:05 09/27/2021 PM EDT 12:02 PM EDT Abdon Arreguin MD BLOOD BANK ORDERABLES Performing Organization Address City/State/ZIP Code Phon e Number [address] POCT Glucose (09/27/2021 11:37 AM EDT) athologist Signature POC Glucose 124 65 - 199 [facility] mg/dL [facility] Comment: Supplemental ranges: <140 mg/dL before meals <180 mg/dL all other times of the day Specimen Anatomical Collection Method Collection Time Receive d Time (Source) Location / / Volume Laterality Blood 09/27/2021 11:37 09/27/2021 AM EDT 11:37 AM EDT Abdon Arreguin MD POINT OF CARE TEST ORDERABLE S Performing Organization Address City/[facility]/[place] [address] SCAN DOC: LAB (09/27/2021 12:00 AM EDT) Narrative 09/27/2021 12:00 AM EDT This result has an attachment that is no t available. Ordered by an unspecified provider. 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 When ordered for pain, acetaminophen should be given even when other ordered pain medications are indicated., Routine Given 09/28/2021 5:00 AM EDT 1,000 mg 400 mL/hr Given 09/27/2021 11:26 PM EDT 1,000 mg 400 mL/hr acetaminophen (Tylenol) tablet 1,000 mg Given 09/27/2021 11:31 AM EDT 1,000 mg 1,000 mg, Oral, ONCE, 1 dose, On Thu09/27/21 at 1145, Administer with SIP of H2O only. Maximum dose of acetaminophen is 4,000 mg from all sources in 24 hours., Day of Surgery (Day of Procedure), Routine acetaminophen (Tylenol) tablet 1,000 mg Given 10/03/2021 11:28 AM EDT 1,000 mg 1,000 mg, Oral, EVERY 6 HOURS SCHEDULED, First dose on 09/28/21 at 1800, Until Discontinued, For pain when taking by mouth. Maximum dose of acetaminophen is 4000 mg from all sources in 24 hours. When ordered for pain, acetaminophen should be given even when other ordered pain medications are indicated., Routine Given 10/03/2021 5:16 AM EDT 1,000 mg Given 10/02/2021 11:32 PM EDT 1,000 mg albumin (human) 5% 250 mL intravenous New Bag 09/27/2021 8:48 PM E DT 12.5 g solution 12.5 g, Intravenous, EVERY 30 MIN PRN, 2 doses, Starting on Thu09/27/21 at 1744, Until Thu09/27/21 at 2048, Other, PRN as needed for volume replacement to maintain cardiac index greater than or equal to 2.0 L/min/M2, PRN as needed for volume replacement to maintain cardiac index greater than or equal to 2.0 L/min/M2, Recovery (Recovery-Hospital Unit), STAT New Bag 09/27/2021 8:17 PM EDT 12.5 g albuteroL 90 mcg/actuation inhaler 2 puf f Given 09/28/2021 7:28 AM EDT 2 puffs 2 puff, Inhalation, 4 TIMES DAILY, First dose on Thu09/27/21 at 1830, Until Discontinued, When EXtubated. , Routine Given 09/27/2021 8:10 PM EDT 2 puffs aspirin chewable tablet 81 mg Given 10/03/2021 8:07 AM EDT 81 mg 81 mg, Oral, DAILY, First dose on Thu09/27/21 at 1830, Until Discontinued, Routine Given 10/02/2021 9:01 AM EDT 81 mg Given 10/01/2021 8:45 AM EDT 81 mg aspirin suppository 300 mg Given 09/27/2021 6:23 PM EDT 300 mg 300 mg, Rectal, DAILY, First dose on Thu09/27/21 at 1830, Until Discontinued, Start on Post-Op Day 0, please give within 6 hours upon arrival to Unit. Give [facility] if unable to take PO, Routine benzonatate (Tessalon) capsule 200 mg Given 10/03/2021 2:11 PM EDT 200 mg 200 mg, Oral, 3 TIMES DAILY, First dose on Thu10/01/21 at 1930, Until Discontinued, DO NOT CRUSH OR OPEN, Routine Given 10/03/2021 8:07 AM EDT 200 mg Given 10/02/2021 8:40 PM EDT 200 mg budesonide-formoteroL (Symbicort) Given 10/03/2021 8:08 AM EDT 2 Inhalation 160-4.5 mcg/actuation inhaler 2 Inhalation 2 Inhalation, Inhalation, 2 TIMES DAILY, First dose on Thu09/27/21 at 2100, Until Discontinued Given 10/02/2021 8:43 PM EDT 2 Inhalation Given 10/02/2021 9:07 AM EDT 2 Inhalation chlorhexidine (Peridex) 0.12 % oral solution Given 8:17 AM EDT 15 mLs 15 mL 15 mL, Oral, EVERY 12 HOURS SCHEDULED (2 times per day), First dose on Thu09/27/21 at 2100, Until Discontinued, [place] teeth, Routine dextrose 10% infusion 250 mL, at 1,000 mL/hr, Intravenous, EARLENE RY 30 MIN PRN, Starting on Thu09/30/21 at 0815, Until Izabel 10/03/21 at 1914, For BG 50-70 mg/dL: Oral treatment preferred: If able to drink, give 120 mL Juice or R egular (not diet) soda OR If NPO, give 15 gram glucose 40% oral gel massaged into buccal mucosa OR if unconscious or uncooperative, give 25 gram (250 mL) Dex trose 10% IV over 15 minutes per protocol OR, if no IV access, 1 mg Glucagon IM. * * For BG less than 50 mg/dL: Oral treatment preferred: If able to drink, give 240 mL Juice or Regu lar (not diet) soda OR If NPO, give 30 gram glucose 40% oral gel m assaged in buccal mucosa OR if unconscious or uncooperative, give 25 gram (250 mL) Dextrose 10% I V over 15 minutes per protocol OR, if no IV access, 1 mg Glucagon IM. Rech aleksandar BG in 30 minutes. May repeat juice/soda, gel, dextrose or gluc agon once per episode. For persistent hypoglycemia, consider longer-acting treatment for the duration of the active insulin. enoxaparin (Lovenox) (120 mg/0.8 mL) Given 10/03/2021 4:09 PM ED T 110 mg subcutaneous injection 110 mg 110 mg, Subcutaneous, EVERY 12 HOURS SCHEDULED (2 times per day), 1 dose, First dose (after last modification) on Thu10/03/21 at 1600, Routine fentaNYL (50 mcg/mL) bolus from Bolus from Infusion 09/28/2021 1 :09 AM EDT 25 mcg infusion 25 mcg 25 mcg, Intravenous, EVERY 1 HOUR PRN, Starting on Thu09/27/21 at 1743, Until 09/28/21 at 1211, Pain, Breakthrough Pain While Extubated, Routine Bolus from Infusion 09/27/2021 10:53 PM EDT 25 mcg Bolus from Infusion 09/27/2021 8:28 PM EDT 25 mcg fentaNYL (PF) (50 Rate/Dose Verify 09/28/2021 10:00 AM 12.5 mcg/hr 0. 3 mL/hr mcg/mL) infusion EDT syringe 50 mL 0-100 mcg/hr (0-2 mL/hr), Intravenous, CONTINUOUS, Starting on Thu09/27/21 at 1830, Until 09/28/21 at 1211, Titrate to patient comfort, pain scale 1-3. Start at 25 mcg/hr, adjust by 25 mcg/hr every 15 minutes. Dose not to exceed 100 mcg/hour., Routine Rate/Dose Change 09/28/2021 8:30 AM EDT 12.5 mcg/hr 0.3 mL/hr Rate/Dose Verify 09/28/2021 8:00 AM EDT 25 mcg/hr 0.5 mL/hr furosemide (Lasix) (10 mg/mL) injection 20 mg Given 10/01/2021 5:12 PM EDT 20 mg 20 mg, Intravenous, 2 TIMES DAILY, First dose on Thu09/29/21 at 1000, Until Discontinued Given 10/01/2021 8:46 AM EDT 20 mg Given 09/30/2021 4:26 PM EDT 20 mg furosemide (Lasix) (10 mg/mL) injection 20 mg Given 10/03/2021 8:07 AM EDT 20 mg 20 mg, Intravenous, DAILY, First dose (after last modification) on Thu10/02/21 at 0930, Until Discontinued Given 10/02/2021 9:02 AM EDT 20 mg gemfibroziL (Lopid) tablet 300 mg Given 10/03/2021 4:11 PM EDT 300 mg 300 mg, Oral, 2 TIMES DAILY BEFORE MEALS, First dose on Thu09/28/21 at 0730, Until Discontinued, Routine Given 10/03/2021 8:07 AM EDT 300 mg Given 10/02/2021 4:39 PM EDT 300 mg glucagon (Glucagen) (1 mg/mL) injection solution 1 mg 1 mg, Intramuscular, EVERY 30 MIN PRN, S tarting on Thu09/30/21 at 0815, Until Izabel 10/03/21 at 1914, Low blood sugar, For BG 50-70 mg/dL: Oral treatment preferred: If able to drink, give 120 mL Juice or R egular (not diet) soda OR If NPO, give 15 gram glucose 40% oral gel massaged into buccal mucosa OR if unconscious or uncooperative, give 25 gram (250 mL) Dex trose 10% IV over 15 minutes per protocol OR, if no IV access, 1 mg Glucagon IM. * * For BG less than 50 mg/dL: Oral treatment preferred: If able to drink, give 240 mL Juice or Regu lar (not diet) soda OR If NPO, give 30 gram glucose 40% oral gel m assaged in buccal mucosa OR if unconscious or uncooperative, give 25 gram (250 mL) Dextrose 10% I V over 15 minutes per protocol OR, if no IV access, 1 mg Glucagon IM. Rech aleksandar BG in 30 minutes. May repeat juice/soda, gel, dextrose or gluc agon once per episode. For persistent hypoglycemia, consider longer-acting treatment for the duration of the active insulin., Routine glucose (Glutose) 40% oral geL 15-30 g of glucose, Buccal, EVERY 30 MIN PRN, Starting on Thu09/30/21 at 0815, Until Izabel 10/03/21 at 1914, Low blood sug ar, For BG 50-70 mg/dL: Oral treatment preferred: If able to drink, give 120 mL Juice or Regu lar (not diet) soda OR If NPO, give 15 gram glucose 40% oral gel massaged into b uccal mucosa OR if unconscious or uncooperative, give 25 gr am (250 mL) Dextrose 10% IV over 15 minutes per protocol OR, if no IV access, 1 mg G lucagon IM. For BG less than 50 mg/dL: Oral treatment preferred: If able to dri nk, give 240 mL Juice or Regular (not diet) soda OR If NPO, give 30 gram glucose 40% oral gel massaged in buccal mucosa OR if unconscious or uncooperative, give 25 gr am (250 mL) Dextrose 10% IV over 15 minutes per protocol OR, if no IV access, 1 mg G lucagon IM. Recheck BG in 30 minutes. May repeat juice/soda, gel, dextrose or gluc agon once per episode. For persistent hypoglycemia, consider longer-acting treatment for the duration of the active insulin. 1 tube of Glutose-15 contains 1 5 grams of glucose (net weight of tube = 37.5 grams.), Routine guaiFENesin ER (Mucinex) tablet 600 mg Given 10/03/2021 8:07 AM EDT 600 mg 600 mg, Oral, EVERY 12 HOURS, First dose on Thu10/01/21 at 1930, Until Discontinued, DO NOT CRUSH OR OPEN, Routine Given 10/02/2021 8:40 PM EDT 600 mg Given 10/02/2021 7:28 AM EDT 600 mg heparin (porcine) 25,000 unit/500 mL inf usion 1 dose, Starting on Thu09/29/21 at 2117, Until Thu09/29/21 at 2129, Nazanin Sweet: cabinet override heparin (porcine) 50 units/mL New Bag 09/29/2021 9:29 PM EDT 5 00 Units/hr 10 mL/hr in sodium chloride 0.45% 500 mL infusion 500 Units/hr (10 mL/hr), Intravenous, CONTINUOUS, Starting on Thu09/29/21 at 2045, Until Thu09/30/21 at 0851, NO TITRATION, Routine heparin (porcine) 50 units/mL New Bag 10/02/2021 7:04 PM EDT 1 ,150 Units/hr 23 mL/hr in sodium chloride 0.45% 500 mL infusion 0-5,000 Units/hr (0-100 mL/hr), Intravenous, CONTINUOUS, Starting on Thu09/30/21 at 0945, Until Izabel 10/03/21 at 1139, Begin infusion at 1,150 units per hr (10 units/kg/hr). Maximum initial infusion rate is 2,000 units/hr. Infusion doses are rounded to the nearest 50 units. Target Heparin UFH Level (anti-Xa activity) = 0.1 - 0.3 international unit/mL Start adjustment schedule 6 hours after starting infusion. If Heparin UFH Level is: - Less than 0.1 international unit/mL: NO BOLUS and increase rate by 250 units per hr (2 units/kg/hr) - 0.1 - 0.3 international unit/mL: No change - 0.31 - 0.4 international unit/mL: Decrease rate by 100 units per hr (1 units/kg/hr) - 0.41 - 0.6 international unit/mL: Decrease rate by 250 units per hr (2 units/kg/hr) - 0.61 - 0.8 international unit/mL: Hold Infusion for 60 minutes then decrease rate by 350 units per hour (3 units/kg/hr) - Greater than 0.8 international unit/mL: Hold infusion for 60 minutes then decrease rate by 450 units per hr (4 units/kg/hr) Repeat Heparin UFH Level 6 hours after initiating heparin. Then 6 hours after each dose adjustment. When 2 consecutive Heparin UFH Level within target range of 0.1 - 0.3 international unit/mL, change Heparin UFH Level to once every 24 hours with A.M. labs while on heparin. RN to order required Heparin UFH Level - Per Protocol, Routine Rate/Dose Verify 10/02/2021 6:15 PM EDT 1,150 Units/hr 23 mL/hr Rate/Dose Verify 10/02/2021 12:00 PM EDT 1,150 Units/hr 23 mL/hr HYDROmorphone (Dilaudid) tablet 2 mg Given 09/28/2021 5:23 PM EDT 2 mg 2 mg, Oral, EVERY 4 HOURS PRN, Starting on Thu09/27/21 at 2323, Until Izabel 10/03/21 at 1914, Pain, for mild pain (1-3), May give an additional 2 mg once if pain not relieved in 30-60 minutes., Routine HYDROmorphone (Dilaudid) tablet 4 mg Given 09/28/2021 3:51 PM EDT 4 mg 4 mg, Oral, EVERY 4 HOURS PRN, Starting on Thu09/27/21 at 2323, Until Izabel 10/03/21 at 1914, Pain, for moderate pain (4-6), May give an additional 2 mg once if pain not relieved in 30-60 minutes., Routine HYDROmorphone (Dilaudid) tablet 6 mg Given 09/29/2021 12:05 AM EDT 6 mg 6 mg, Oral, EVERY 4 HOURS PRN, Starting on Thu09/27/21 at 2323, Until Izabel 10/03/21 at 1914, Pain, for severe pain (7-10), May give an additional 2 mg once if pain not relieved in 30-60 minutes., Routine Given 09/28/2021 9:45 AM EDT 6 mg Given 09/28/2021 5:48 AM EDT 6 mg insulin lispro (HumaLOG;Admelog) (100 Given 10/02/2021 8:41 PM E DT 1 Units unit/mL) subcutaneous injection vial 1-6 Units 1-6 Units, Subcutaneous, 4 TIMES DAILY BEFORE MEALS & NIGHTLY, First dose on 09/30/21 at 0915, Until Discontinued, CORRECTION BOLUS [1-6 Units] Moderate Sliding Scale (BG in mg/dL): Correction factor 20 (1 unit of insulin is expected to drop the glucose 20 mg/dL) BG 140 - 160 Give 1 unit BG 161 - 180 Give 2 units BG 181 - 200 Give 3 units BG 201 - 220 Give 4 units BG 221 - 240 Give 5 units BG greater than 240, give 6 units and recheck BG in 2 hours. - If recheck BG is LESS than 240, give no insulin and resume schedule. - If recheck BG is GREATER than 240, give 6 units and repeat BG in 2 hours (no more than 3 times) & call for new insulin orders. DO NOT hold if NPO, unless specifically directed to do so by written order. Per Blood Glucose Monitoring Policy, re-check a BG of > 240 mg/dL in 2 hours., Routine Given 10/02/2021 4:39 PM EDT 1 Units Given 10/02/2021 11:29 AM EDT 1 Units insulin regular Rate/Dose Verify 09/28/2021 10:00 0.5 Units/hr 0.5 mL /hr (Myxredlin) (1 unit/mL) AM EDT in sodium chloride 0.9% 100 mL infusion 0.5-16 Units/hr (0.5-16 mL/hr), Intravenous, CONTINUOUS, Starting on Thu09/27/21 at 1830, Until 09/28/21 at 1211, Type 2 diabetes. Current blood glucose 140 - 179 Titration- aim for target range of 140 - 180 mg/dL. Check BG every hour unless otherwise indicated. [[ No initial bolus. Begin continuous infusion at 2 units/hour. ]] If BG at the time the infusion is started outside of the CURRENT BLOOD GLUCOSE range above, contact MD for new starting rate/bolus order. When infusion is paused, turn it back on as soon as possible per protocol. If BG at the time the infusion is started is outside of the CURRENT BLOOD GLUCOSE range above, contact provider for new starting rate/bolus order. Current BG less than 80 - Stop insulin. If BG less than 70, treat per hypoglycemia protocol. Re-check BG in 30 minutes and as soon as BG is greater than 80, restart with rate 50% of previous rate. If infusion stopped after previous rate had been 0.5 unit/hour, recheck every hour and when BG greater than 100 and higher than last test restart at 0.5 unit/hour. IF INFUSION IS PAUSED, TURN IT BACK ON SOON POSSIBLE, PER PROTOCOL. Current BG 80 - 139 - If BG dropped 10 mg/dL or more since last test, decrease rate by 50% and re-check in 30 minutes. Otherwise, decrease rate by 0.5 units/hour. Current BG 140 - 180 - If BG dropped 50 mg/dL or more since last test, decrease rate by 1 unit/hour. Otherwise, maintain same rate. Current BG 181 - 220 - If BG is lower than last test, maintain same rate. Otherwise, increase rate by 0.5 units/hour. Current BG 221 - 250 - If BG dropped 30 mg/dL or more since last test, maintain same rate. Otherwise, increase rate by 1 unit/hour. Current BG greater than 250 - Increase rate by 1 unit/hour AND bolus with Regular insulin IV as per IV Bolus Scale. Re-check BG in 30 minutes. THE FIRST DOSE OF SC INSULIN OUGHT TO BE ADMINISTERED BEFORE DISCONTINUING THE INFUSION. AN OVERLAP OF 2-3 HOURS IS RECOMMENDED. Continue to monitor the BG hourly., Routine Rate/Dose Change 09/28/2021 9:49 AM EDT 0.5 Units/hr 0.5 mL/hr Rate/Dose Verify 09/28/2021 8:16 AM EDT 1 Units/hr 1 mL/hr ipratropium-albuteroL (Duoneb) 0.5 mg-3 mg(2.5 Given 0 10/03/2021 2:11 PM EDT 3 mLs mg base)/3 mL nebulizer solution 3 mL 3 mL, Nebulization, EVERY 6 HOURS, First dose on 09/28/21 at 1100, Until Discontinued, Routine Given 10/03/2021 8:07 AM EDT 3 mLs Given 10/02/2021 8:40 PM EDT 3 mLs levothyroxine (Synthroid) tablet 125 mcg Given 10/03/2021 5:16 AM EDT 125 mcg 125 mcg, Oral, DAILY, First dose on Thu09/28/21 at 0600, Until Discontinued, Routine Given 10/02/2021 5:27 AM EDT 125 mcg Given 10/01/2021 5:08 AM EDT 125 mcg lidocaine (Lidoderm) 5% Patch Applied 10/02/2021 11:32 PM 1 patch 11- Chest (Left) patch 1 patch EDT 1 patch, Transdermal, EVERY 24 HOURS, First dose on [facility] 09/28/21 at 0015, Until Discontinued, Apply patch(es) for 12 hours, and then remove for 12 hours., Routine Patch Applied 10/01/2021 11:25 PM EDT 1 patch 11- Chest (Left) Patch Applied 09/30/2021 11:06 PM EDT 1 patch 11- Chest (Left) lidocaine (Lidoderm) topical patch REMOV AL Transdermal, EVERY 24 HOURS, First dose on Thu09/28/21 at 1130, Until Discontinued, Remove lidocaine 5% patch magnesium hydroxide (Milk of Magnesia) (240 Given 09/30/2021 9:18 AM EDT 10 mLs mg/mL) oral liquid 10 mL 10 mL, Oral, DAILY, First dose on Thu09/29/21 at 0900, Until Discontinued, Post-op day 2. Do not use with renal insufficiency., Routine Given 09/29/2021 8:41 AM EDT 10 mLs magnesium sulfate 2 g in sterile water New Bag 10/01/2021 8:56 AM EDT 2 g 25 mL/hr 50 mL infusion 2 g, Intravenous, ONCE, 1 dose, On Thu10/01/21 at 0745, Administer over 120 Minutes metFORMIN (Glucophage) tablet 1,000 mg Given 10/03/2021 4:10 PM EDT 1,000 mg 1,000 mg, Oral, 2 TIMES DAILY WITH MEALS, First dose on Thu10/01/21 at 1700, Until Discontinued, Routine Given 10/03/2021 8:07 AM EDT 1,000 mg Given 10/02/2021 5:53 PM EDT 1,000 mg metoproloL tartrate (Lopressor) tablet 2 5 mg Given 09/28/2021 8:09 PM EDT 25 mg 25 mg, Oral, EVERY 12 HOURS SCHEDULED (2 times per day), First dose on 09/28/21 at 1100, Until Discontinued, Hold for HR<60 or SBP<90, Routine Given 09/28/2021 11:30 AM EDT 25 mg metoproloL tartrate (Lopressor) tablet 2 5 mg Given 09/30/2021 5:35 AM EDT 25 mg 25 mg, Oral, EVERY 8 HOURS SCHEDULED, First dose (after last modification) on Thu09/29/21 at 0815, Until Discontinued, Hold for HR<60 or SBP<90, Routine Given 09/29/2021 9:26 PM EDT 25 mg Given 09/29/2021 8:40 AM EDT 25 mg metoproloL tartrate (Lopressor) tablet 2 5 mg Given 09/30/2021 4:26 PM EDT 25 mg 25 mg, Oral, ONCE, 1 dose, On Thu09/30/21 at 1700, STAT metoprolol tartrate (Lopressor) tablet 5 0 mg Given 09/30/2021 8:28 PM EDT 50 mg 50 mg, Oral, EVERY 12 HOURS SCHEDULED (2 times per day), First dose (after last modification) on Thu09/30/21 at 2100, Until Discontinued, Hold for HR<60 or SBP<90, Routine metoprolol tartrate (Lopressor) tablet 5 0 mg Given 10/03/2021 2:11 PM EDT 50 mg 50 mg, Oral, EVERY 8 HOURS SCHEDULED, First dose (after last modification) on Thu10/01/21 at 0745, Until Discontinued, Hold for HR<60 or SBP<90, Routine Given 10/03/2021 5:16 AM EDT 50 mg Given 10/02/2021 9:02 PM EDT 50 mg NORepinephrine (Levophed) Rate/Dose Change 09/27/2021 6:35 PM EDT 0 mcg/min 0 mL/hr (16 mcg/mL) in dextrose 5% 250 mL infusion 0-30 mcg/min (0-112.5 mL/hr), Intravenous, CONTINUOUS, Starting on Thu09/27/21 at 1830, Until Thu09/28/21 at 1211, Titrate to keep systolic blood pressure greater than 90 mmHg. Start at 2 mcg/minute and adjust by 2 mcg/min every 3 minutes. Dose not to exceed 30 mcg/minute. Begin if PHENYLephrine and/or vasopressin ineffective. Call pager # [phone] if initiated., Routine New Bag 09/27/2021 5:53 PM EDT 2 mcg/min 7.5 mL/hr oxyCODONE (Roxicodone) tablet 5-10 mg Given 09/27/2021 10:31 PM EDT 5 mg 5-10 mg, Oral, EVERY 4 HOURS PRN, Starting on Thu09/27/21 at 1743, Until Thu09/27/21 at 2324, Pain, - When tolerating oral medications. - Initial dose 5 mg. - If pain control not adequate in 60 minutes, give additional 5 mg., Routine Given 09/27/2021 9:37 PM EDT 5 mg pantoprazole (Protonix) injection 40 mg Given 09/27/2021 5:54 PM EDT 40 mg 40 mg, Intravenous, DAILY, First dose on Thu09/27/21 at 1830, Until Discontinued, Reconstitute with 10 mL of normal saline to a concentration of 4 mg/mL and infuse slowly over 2 minutes. , Routine pantoprazole EC (Protonix) tablet 40 mg Given 10/03/2021 8:07 AM EDT 40 mg 40 mg, Oral, DAILY, First dose on Thu09/27/21 at 1830, Until Discontinued, DO NOT CRUSH OR OPEN If unable to take PO, may give IV, Routine Given 10/02/2021 9:02 AM EDT 40 mg Given 10/01/2021 8:46 AM EDT 40 mg perflutren protein-A microsphers (Optison) Given 09/30 11:20 AM EDT 0.5 mLs (0.22 mg/mL) injection 0.5 mL 0.5 mL, Intravenous, ONCE PRN, 1 dose, Starting on Thu09/30/21 at 1120, Until Thu09/30/21 at 1120, for enhancement of sub-optimal echo images, Echo Lab (Intra-Procedure), Routine polyethylene glycoL (Miralax) packet 17 g Given 10/03/2021 8:07 AM EDT 17 g 17 g, Oral, DAILY, First dose on Thu09/30/21 at 0915, Until Discontinued, Routine Given 09/30/2021 11:47 AM EDT 17 g potassium chloride ER (K-Dur/Klor-Con) tablet Given 8:40 AM EDT 20 mEq 20 mEq 20 mEq, Oral, ONCE, 1 dose, On Thu09/29/21 at 0815, Routine potassium chloride ER (K-Dur/Klor-Con) Given 10/01/2021 11:52 AM EDT 40 mEq tablet 40 mEq 40 mEq, Oral, EVERY 4 HOURS, 2 doses, First dose on Thu10/01/21 at 0630, Last dose on Thu10/01/21 at 1030, 20 mEq tablet may be dissolved in water for administration, Routine Given 10/01/2021 6:02 AM EDT 40 mEq potassium chloride ER (K-Dur/Klor-Con) Given 10/02/2021 11:28 AM EDT 40 mEq tablet 40 mEq 40 mEq, Oral, ONCE, 1 dose, On Thu10/02/21 at 1115, 20 mEq tablet may be dissolved in water for administration, Routine potassium chloride ER (K-Dur/Klor-Con) Given 10/02/2021 12:49 PM EDT 40 mEq tablet 40 mEq 40 mEq, Oral, ONCE, 1 dose, On Thu10/02/21 at 1200, 20 mEq tablet may be dissolved in water for administration, Routine pravastatin (Pravachol) tablet 80 mg Given 10/03/2021 4:11 PM EDT 80 mg 80 mg, Oral, EVERY EVENING, First dose on Thu09/27/21 at 2100, Until Discontinued, Routine Given 10/02/2021 6:41 PM EDT 80 mg Given 10/01/2021 5:10 PM EDT 80 mg propofoL (Diprivan) (10 New Bag 09/27/2021 5:48 PM EDT 40 mcg/kg/m in 27.4 mL/hr mg/mL) infusion 0-50 mcg/kg/min ? 114.1 kg (0-34.23 mL/hr, rounded to 0-34.2 mL/hr), Intravenous, CONTINUOUS, Starting on Thu09/27/21 at 1830, Until 09/28/21 at 1211, Titrate to sedation level of RASS Goal (-) 1. Start at 10 mcg/kg/min, adjust rate by 5 mcg/kg/min every 3 minutes. Dose not to exceed 50 mcg/kg/minute. Discontinue upon extubation., Routine senna-docusate (Pericolace) 8.6-50 mg per Given 2021 8:40 PM EDT 2 tablets tablet 2 tablet 2 tablet, Oral, DAILY, First dose on 09/28/21 at 2100, Until Discontinued, Post-op day 1, Routine Given 10/01/2021 8:15 PM EDT 2 tablets Given 09/30/2021 8:28 PM EDT 2 tablets sodium chloride 0.9 % (flush) (BD PosiFlush Given 10/02/2021 8:4 1 PM EDT 5 mLs Normal Saline 0.9) flush 5 mL 5 mL, Intravenous, EVERY 8 HOURS, First dose on 09/28/21 at 1300, Until Discontinued, Routine Given 10/02/2021 1:00 PM EDT 5 mLs Given 10/01/2021 8:16 PM EDT 5 mLs sodium chloride 0.9% Rate/Dose Verify 09/28/2021 10:00 AM 30 mL/hr 30 mL/hr infusion EDT 0-500 mL/hr, Intravenous, CONTINUOUS, Starting on Thu09/27/21 at 1830, Until 09/28/21 at 1211, Bolus 250 mL every 5 minutes as needed for volume replacement to maintain cardiac index greater than or equal to 2.0 L/min/M2. Maximum volume 2 L. Call powerhouse tender for additional fluid orders: pager #[phone]. New Bag 09/28/2021 9:55 AM EDT 30 mL/hr 30 mL/hr Rate/Dose Verify 09/28/2021 8:00 AM EDT 1 mL/hr 1 mL/hr sodium chloride 0.9% infusion New Bag 09/27/2021 5:47 PM EDT 30 mL/hr 30 mL/hr 10-30 mL/hr, Intravenous, DAILY PRN, Starting on Thu09/27/21 at 1743, Until 09/28/21 at 1211, Side port TKO rate, per [facility] nursing protocol. sodium chloride 0.9% Rate/Dose Verify 09/28/2021 10:00 AM 30 mL/hr 30 mL/hr infusion EDT 10-30 mL/hr, Intravenous, DAILY PRN, Starting on Thu09/27/21 at 1743, Until 09/28/21 at 1211, Side port TKO rate, per [facility] nrusing protocol. Rate/Dose Verify 09/28/2021 8:00 AM EDT 30 mL/hr 30 mL/hr New Bag 09/27/2021 5:47 PM EDT 30 mL/hr 30 mL/hr tamsulosin (Flomax) capsule 0.4 mg Given 10/03/2021 8:07 AM EDT 0.4 mg 0.4 mg, Oral, 2 TIMES DAILY, First dose on 09/28/21 at 0900, Until Discontinued, DO NOT CRUSH OR OPEN, Routine Given 10/02/2021 8:40 PM EDT 0.4 mg Given 10/02/2021 9:22 AM EDT 0.4 mg warfarin (COUMADIN) daily order reminder Oral, EVERY 24 HOURS, First dose on Thu10/01/21 at 1400, Until Discontinued, If the daily warfarin order has not been placed , contact the Provider to confirm that the order will be written, the dose is held or discontinue d. warfarin (Coumadin) tablet 1 mg Given 09/30/2021 4:27 PM EDT 1 mg 1 mg, Oral, ONCE, 1 dose, On Thu09/30/21 at 1700, DO NOT SPLIT, CRUSH OR OPEN, Routine warfarin (Coumadin) tablet 3 mg Given 10/01/2021 5:10 PM EDT 3 mg 3 mg, Oral, ONCE, 1 dose, On Thu10/01/21 at 1700, DO NOT SPLIT, CRUSH OR OPEN, Routine warfarin (Coumadin) tablet 5 mg Given 10/03/2021 4:10 PM EDT 5 mg 5 mg, Oral, ONCE, 1 dose, On [place] 10/03/21 at 1700, DO NOT SPLIT, CRUSH OR OPEN, Routine warfarin (Coumadin) tablet 7.5 mg Given 10/02/2021 5:54 PM EDT 7.5 mg 7.5 mg, Oral, ONCE, 1 dose, On Thu10/02/21 at 1700, DO NOT SPLIT, CRUSH OR OPEN, Routine documented in this encounter Active and Recently Administered Medications Times are shown in EDT. Scheduled Medication Order 10/01/2021 10/02/2021 10/03/2021 acetaminophen (Tylenol) tablet 1,000 mg 0508 (Given - Provider: Tatiana Lopez RN)1152 (Given - Provider: Fransisca Hernandez RN)1710 (Given - Provider: Fransisca Hernandez RN)2325 (Given - Provider: Tatiana Lopez RN) 0527 (Given - Provider: Tatiana gustafson RN)1128 (Given - Provider: Marilou Graff RN)1754 (Given - Provider: Marilou Graff RN)2332 (Given - Provider: Tatiana Lopez RN) 0516 (Given - Provider: Tatiana gustafson RN)1128 (Given - Provider: Esthela Vu RN) 1,000 mg, Oral, EVERY 6 HOURS SCHEDULED, First dose on Thu09/28/21 at 1800, Until Discontinued, For pain when taking by mouth. Maximum dose of acetaminophen is 4000 mg from all sources in 24 hours. When ordered for pain, acetaminophen should be given even when other ordered pain medications are indicated., Routine aspirin chewable tablet 81 mg 0845 (Given - Provider: Nino Hernandez RN) 0901 (Given - Provider: Marilou Graff RN) 0807 (Given - Provider: Esthela Vu, TY) 81 mg, Oral, DAILY, First dose on Thu at 1830, Until Discontinued, Routine benzonatate (Tessalon) capsule 200 mg 1857 (Given - Pr ovider: Fransisca Hernandez RN) 0902 (Given - Provider: Marilou Graff RN)1404 (Given - Provider: Marilou Graff RN)2040 (Given - Provider: Tatiana Lopez RN) 0807 (Given - Provider: Esthela Vu RN)1411 (Given - Provider: Esthela Vu RN) 200 mg, Oral, 3 TIMES DAILY, First dose on Thu10/01/21 at 1930, Until Discontinued, DO NOT CRUSH OR OPEN, Routine budesonide-formoteroL (Symbicort) 160-4.5 mcg/actuatio n inhaler 2 Inhalation 0845 (Given - Provider: Fransisca Hernandez RN)2014 (Given - Provider: Tatiana Lopez RN) 09 (Given - Provider: Marilou Graff RN)2042 (Given - Provider: Tatiana Lopez RN) 0808 (Given - Provider: Esthela george RN) 2 Inhalation, Inhalation, 2 TIMES DAILY, First dose on Thu09/27/21 at 2100, Until Discontinued enoxaparin (Lovenox) (120 mg/0.8 mL) subcutaneous injection 110 mg (COMPLETED) 160 (Given - Provider: Esthela george RN) 110 mg, Subcutaneous, EVERY 12 HOURS KAE EDULED (2 times per day), 1 dose, First dose (after last modification) on Thu10/03/21 at 1600, Routine furosemide (Lasix) (10 mg/mL) injection 20 mg (CANCELE D) 0846 (Given - Provider: Fransisca Hernandez RN)171 (Given - Provider: Fransisca Hernandez RN) 20 mg, Intravenous, 2 TIMES DAILY, First dose on Thu09/29/21 at 1000, Until Discontinued furosemide (Lasix) (10 mg/mL) injection 20 mg 09 (Given - Provider: Marilou Graff RN) 08 (Given - Provider: Esthela george RN) 20 mg, Intravenous, DAILY, First dose (a fter last modification) on Thu10/02/21 at 0930, Until Discontinued gemfibroziL (Lopid) tablet 300 mg 0845 (Given - Provid er: Fransisca Hernandez RN)163 (Given - Provider: Fransisca Hernandez RN) 07 (Given - Provider: Marilou Graff RN)163 (Given - Provider: Marilou Graff RN) 0807 (Given - Provider: Esthela Vu RN)1611 (Given - Provider: Esthela Vu RN) 300 mg, Oral, 2 TIMES DAILY BEFORE MEALS , First dose on Thu09/28/21 at 0730, Until Discontinued, Routine guaiFENesin ER (Mucinex) tablet 600 mg 1857 (Given - P rovider: Fransisca Hernandez RN) 0728 (Given - Provider: Marilou Graff RN)2040 (Given - Provider: Tatiana Lopez RN) 0807 (Given - Provider: Esthela george RN) 600 mg, Oral, EVERY 12 HOURS, First dose on Thu10/01/21 at 1930, Until Discontinued, DO NOT CRUSH OR OPEN, Routine insulin lispro (HumaLOG;Admelog) (100 un it/mL) subcutaneous injection vial 1-6 Units(Linked Group 1) 0851 (Given - Provider: Fransisca mcmullen RN)1153 (Given - Provider: Fransisca Hernandez, TY)1630 (Not Given - Provider: Fransisca Hernandez RN - Reason: Order parameters not met)2014 (Given - Provider: Tatiana Lopez RN) 0733 (Given - Provider: Marilou Graff RN)1129 (Given - Provider: Marilou Graff RN)1639 (Given - Provider: Marilou Graff RN)204 (Given - Provider: Tatiana Lopez RN) 0730 (Not Given - Provider: Esthela Vu RN - Reason: Order parameters not met)1130 (Not Given - Provider: Esthela Vu RN - Reason: Order parameters not met)1630 (Due) 1-6 Units, Subcutaneous, 4 TIMES DAILY B EFORE MEALS & NIGHTLY, First dose on 09/30/21 at 0915, Until Discontinued, CORRECTION BOLUS [1-6 Units] Moderate Sliding Scale (BG in mg/dL): Correctio n factor 20 (1 unit of insulin is expect ed to drop the glucose 20 mg/dL) BG 140 - 160 Give 1 unit BG 161 - 180 Give 2 units BG 181 - 200 Give 3 units BG 201 - 220 Give 4 units BG 221 - 240 Give 5 units BG greater than 240, give 6 units and re check BG in 2 hours. - If recheck BG is LESS than 240, give no insulin and resume schedule. - If recheck BG is GREATER than 240, give 6 units and repeat BG in 2 h ours (no more than 3 times) & call for n ew insulin orders. DO NOT hold if NPO, unless specifically directed to do so by written order. Per Blood Glucose Monitoring Policy, re-check a BG of > 240 mg/dL in 2 hours., Routine ipratropium-albuteroL (Duoneb) 0.5 mg-3 mg(2.5 mg base)/3 mL nebulizer solution 3 mL 0200 (Not Given - Provider: Tatiana Lopez RN - Reason: Patient/family refused)0846 (Given - Provider: Fransisca Hernandez, TY)1400 (Not Given - Provider: Fransisca Hernandez RN - Reason: Patient/family refused) 0105 (Given - Provider: Tatiana gustafson RN)0907 (Given - Provider: Marilou Graff RN)1405 (Given - Provider: Marilou Graff RN)2040 (Given - Provider: Tatiana Lopez RN) 0200 (Not Given - Provider: Tatiana Lopez RN - Reason: Patient/family refused)0807 (Given - Provider: Esthela Vu RN)1411 (Given - Provider: Esthela Vu RN) 3 mL, Nebulization, EVERY 6 HOURS, First dose on 09/28/21 at 1100, Until Discontinued, Routine 1928 (Given - Provider: Tatiana Lopez RN) levothyroxine (Synthroid) tablet 125 mcg 0508 (Given - Provider: Tatiana Lopez RN) 0527 (Given - Provider: Tatiana Lopez RN) 0516 (Given - Provider: Tatiana Lopez RN) 125 mcg, Oral, DAILY, First dose on 09/28/21 at 0600, Until Discontinued, Routine lidocaine (Lidoderm) 5% patch 1 patch(Linked Group 2) 0015 (Not Given - Provider: Tatiana Lopez, TY - Reason: See comment - Comment: patch already given. see MAR)2325 (Patch Applied - Provider: Tatiana Lopez RN) 2332 (Patch Applied - Provider: Tatiana Lopez RN) 1 patch, Transdermal, EVERY 24 HOURS, Fi rst dose on 09/28/21 at 0015, Until Discontinued, Apply patch(es) for 12 hours, and then remove for 12 hours., Routine lidocaine (Lidoderm) topical patch REMOVAL(Linked Grou p 2) 1130 (Patch Removed - Provider: Fransisca Hernandez RN) 1130 (Patch Removed - Provider: Marilou Graff RN) 1130 (Patch Removed - Provider: Esthela Vu RN) Transdermal, EVERY 24 HOURS, First dose on 09/28/21 at 1130, Until Discontinued, Remove lidocaine 5% patch magnesium hydroxide (Milk of Magnesia) (240 mg/mL) ora l liquid 10 mL 0900 (Not Given - Provider: Fransisca Hernandez RN - Reason: Patient/family refused) 0900 (Not Given - Provider: Marilou Graff RN - Reason: Patient/family refused) 0900 (Not Given - Provider: Esthela gomez RN - Reason: Patient/family refused) 10 mL, Oral, DAILY, First dose on Sun at 0900, Until Discontinued, Post- op day 2. Do not use with renal insufficiency., Routine magnesium sulfate 2 g in sterile water 50 mL infusion (COMPLETED) 0856 (New Bag - Provider: Fransisca Hernandez, TY)1056 (Stopped - Provider: Fransisca Hernandez RN) 2 g, Intravenous, ONCE, 1 dose, On Thu at 0745, Administer over 120 Minutes metFORMIN (Glucophage) tablet 1,000 mg 1710 (Given - P rovider: Fransisca Hernandez RN) 0728 (Given - Provider: Marilou Graff RN)1753 (Given - Provider: Marilou Graff RN) 0807 (Given - Provider: Esthela george RN)1610 (Given - Provider: Esthela Vu RN) 1,000 mg, Oral, 2 TIMES DAILY WITH MEALS , First dose on Thu10/01/21 at 1700, Until Discontinued, Routine metoprolol tartrate (Lopressor) tablet 50 mg 0856 (Giv en - Provider: Fransisca Hernandez RN)1535 (Given - Provider: Fransisca Hernandez RN)2102 (Given - Provider: Tatiana Lopez RN) 0527 (Given - Provider: Tatiana gustafson, RN)1405 (Given - Provider: Marilou Graff, TY)210 (Given - Provider: Tatiana Lopez RN) 0516 (Given - Provider: Tatiana gustafson RN)1411 (Given - Provider: Esthela Vu RN) 50 mg, Oral, EVERY 8 HOURS SCHEDULED, Fi rst dose (after last modification) on Thu10/01/21 at 0745, Until Discontinued, Hold for HR<60 or SBP<90, Routine pantoprazole EC (Protonix) tablet 40 mg 0846 (Given - Provider: Fransisca Hernandez RN) 0902 (Given - Provider: Marilou Graff RN) 0807 (Giv en - Provider: Esthela Vu RN) 40 mg, Oral, DAILY, First dose on Thu at 1830, Until Discontinued, DO NOT CRUSH OR OPEN If unable to take PO, may give IV, Routine polyethylene glycoL (Miralax) packet 17 g 0900 (Not Gi milagros - Provider: Fransisca Hernandez RN - Reason: Patient/family refused) 0900 (Not Given - Provider: Marilou Graff RN - Reason: Patient/family refused) 0807 (Given - Provider: Esthela Vu, TY) 17 g, Oral, DAILY, First dose on 09/10 at 0915, Until Discontinued, Routine potassium chloride ER (K-Dur/Klor-Con) tablet 40 mEq ( COMPLETED) 0602 (Given - Provider: Tatiana Lopez RN)1152 (Given - Provider: Fransisca Hernandez RN) 40 mEq, Oral, EVERY 4 HOURS, 2 doses, Fi rst dose on Thu10/01/21 at 0630, Last dose on Thu10/01/21 at 1030, 20 mEq tablet may be dissolved in water for administration, Routine potassium chloride ER (K-Dur/Klor-Con) tablet 40 mEq (COMPLE ANGELICA) 1128 (Given - Provider: Marilou Graff, TY) 40 mEq, Oral, ONCE, 1 dose, On Thu at 1115, 20 mEq tablet may be dissolved in water for administration, Routine potassium chloride ER (K-Dur/Klor-Con) tablet 40 mEq (COMPLE ANGELICA) 1249 (Given - Provider: Marilou Graff RN) 40 mEq, Oral, ONCE, 1 dose, On Thu at 1200, 20 mEq tablet may be dissolved in water for administration, Routine pravastatin (Pravachol) tablet 80 mg 1710 (Given - Pro vider: Fransisca Hernandez RN) 1841 (Given - Provider: Marilou Graff RN) 1611 (Giv en - Provider: Esthela Vu RN) 80 mg, Oral, EVERY EVENING, First dose o n Thu09/27/21 at 2100, Until Discontinued, Routine senna-docusate (Pericolace) 8.6-50 mg per tablet 2 tab let 2014 (Given - Provider: Tatiana Lopez RN) 2040 (Given - Provider: Tatiana gustafson, TY) 2 tablet, Oral, DAILY, First dose on Thu09/28/21 at 2100, Until Discontinued, Post-op day 1, Routine sodium chloride 0.9 % (flush) (BD PosiFlush Normal Beto ine 0.9) flush 5 mL 0500 (Not Given - Provider: Tatiana Lopez RN - Reason: See comment - Comment: IV flushed at 2099)1300 (Not Given - Provider: Fransisca Hernandez RN - Reason: See comment - Comment: infusing)2015 (Given - Provider: Tatiana Lopez, TY) 0500 (Not Given - Provider: Tatiana Lopez RN - Reason: Patient/family refused)1300 (Given - Provider: Marilou Graff RN)2040 (Given - Provider: Tatiana Lopez, TY) 0500 (Not Given - Provider: Tatiana Lopez RN - Reason: Patient/family refused)1300 (Not Given - Provider: Esthela Vu RN - Reason: See comment) 5 mL, Intravenous, EVERY 8 HOURS, First dose on 09/28/21 at 1300, Until Discontinued, Routine tamsulosin (Flomax) capsule 0.4 mg 08 (Given - Provi aimee: Fransisca Hernandez RN)2014 (Given - Provider: Tatiana Lopez RN) 921 (Given - Provider: Marilou Graff RN)2039 (Given - Provider: Tatiana Lopez RN) 08 (Given - Provider: Esthela Vu RN) 0.4 mg, Oral, 2 TIMES DAILY, First dose on Thu09/28/21 at 0900, Until Discontinued, DO NOT CRUSH OR OPEN, Routine warfarin (COUMADIN) daily order reminder 1400 (Dose co nfirmed - Provider: Fransisca Hernandez RN) 1400 (Dose confirmed - Provider: Marilou Graff RN) 1400 (Dose confirmed - Provider: Esthela Vu RN) Oral, EVERY 24 HOURS, First dose on Thu10/01/21 at 1400, Until Discontinued, If the daily warfarin order has not been placed, contact the Provider to confirm that the order will be written, the dose is held or discontinued. warfarin (Coumadin) tablet 3 mg (COMPLETED) 171 (Give n - Provider: Fransisca Hernandez RN) 3 mg, Oral, ONCE, 1 dose, On Thu10/01/21 at 1700, DO NOT SPLIT, CRUSH OR OPEN, Routine warfarin (Coumadin) tablet 5 mg (COMPLETED) 161 (Given - Provider: Esthela Vu RN) 5 mg, Oral, ONCE, 1 dose, On [place] 10/03/21 at 1700, DO NOT SPLIT, CRUSH OR OPEN, Routine warfarin (Coumadin) tablet 7.5 mg (COMPLETED) 1753 (Given - Provider: Marilou Graff RN) 7.5 mg, Oral, ONCE, 1 dose, On Thu at 1700, DO NOT SPLIT, CRUSH OR OPEN, Routine Continuous Medication Order 10/01/2021 10/02/2021 10/03/2021 heparin (porcine) 50 units/mL in sodium chloride 0.45% 500 mL infusion (CANCELED) 0026 (New Bag - Provider: Tatiana chi RN)2146 (New Bag - Provider: Tatiana Lopez RN) 0800 (Rate/Dose Verify - Provider: Sarah Graff RN)1200 (Rate/Dose Verify - Provider: Mrailou Graff RN)1815 (Rate/Dose Verify - Provider: Marilou Graff RN)1904 (New Bag - Provider: Marilou Graff RN) 1129 (Stopped - Provider: Esthela bingham RN - Comment: Per BEN Be) 0-5,000 Units/hr (0-100 mL/hr), Intraven ous, CONTINUOUS, Starting on 09/30/21 at 0945, Until [place] 10/03/21 at 1139, Begin infusion at 1,150 units per hr (10 units/kg/hr). Maximum initial infusion rate is 2,000 units/hr. Infusion doses are ro unded to the nearest 50 units. Target Heparin UFH Level (anti-Xa activity) = 0.1 - 0.3 international unit/mL Start adjustment schedule 6 hours after starting infu dago. If Heparin UFH Level is: - Less th an 0.1 international unit/mL: NO BOLUS and increase rate by 250 units per hr (2 units/kg/hr) - 0.1 - 0.3 international unit/mL: No change - 0.31 - 0.4 internation al unit/mL: Decrease rate by 100 units p er hr (1 units/kg/hr) - 0.41 - 0.6 international unit/mL: Decrease rate by 250 units per hr (2 units/kg/hr) - 0.61 - 0.8 international unit/mL: Hold Infusion for 60 minutes then decrease rate by 350 uni ts per hour (3 units/kg/hr) - Greater than 0.8 international unit/mL: Hold infusion for 60 minutes then decrease rate by 450 units per hr (4 units/kg/hr) Repeat H eparin UFH Level 6 hours after initiatin g heparin. Then 6 hours after each dose adjustment. When 2 consecutive Heparin UFH Level within target range of 0.1 - 0.3 international unit/mL, change Heparin UF H Level to once every 24 hours with A.M. labs while on heparin. RN to order required Heparin UFH Level - Per Protocol, Routine PRN Medication Order 10/01/2021 10/02/2021 10/03/2021 bisacodyL (Dulcolax) suppository 10 mg 10 mg, Rectal, DAILY PRN, Starting on Mo n 09/30/21 at 0000, Until [place] 10/03/21 at 1914, Constipation, Starting post-op day 3., Routine dextrose 10% infusion(Linked Group 3) 250 mL, at 1,000 mL/hr, Intravenous, EARLENE RY 30 MIN PRN, Starting on Thu09/30/21 at 0815, Until [place] 10/03/21 at 1914, For BG 50-70 mg/dL: Oral treatment preferred: If able to drink, give 120 mL Juice or Regular (not diet) soda OR If NPO, give 15 gram glucose 40% oral gel massaged into buccal mucosa OR if unconscious or uncooperative, give 25 gram (250 mL) Dextrose 10% IV over 15 minutes per protocol O R, if no IV access, 1 mg Glucagon IM. For BG less than 50 mg/dL: Oral treatment preferred: If able to drink, give 240 mL Juice or Regular (not diet) soda OR If NPO, give 30 gram glucose 40% oral gel massaged in buccal mucosa OR if unconsci ous or uncooperative, give 25 gram (250 mL) Dextrose 10% IV over 15 minutes per protocol OR, if no IV access, 1 mg Glucagon IM. Recheck BG in 30 minutes. May re peat juice/soda, gel, dextrose or glucag on once per episode. For persistent hypoglycemia, consider longer-acting treatment for the duration of the active insulin. glucagon (Glucagen) (1 mg/mL) injection solution 1 mg(Linked Prakash up 3) 1 mg, Intramuscular, EVERY 30 MIN PRN, S tarting on Thu09/30/21 at 0815, Until [place] 10/03/21 at 1914, Low blood sugar, For BG 50-70 mg/dL: Oral treatment preferred: If able to drink, give 120 mL Juice o r Regular (not diet) soda OR If NPO, giv e 15 gram glucose 40% oral gel massaged into buccal mucosa OR if unconscious or uncooperative, give 25 gram (250 mL) Dextrose 10% IV over 15 minutes per protocol OR, if no IV access, 1 mg Glucagon IM. * * For BG less than 50 mg/dL: Oral treatment preferred: If able to drink, give 240 mL Juice or Regular (not diet) soda OR If NPO, give 30 gram glucose 40% oral gel massaged in buccal mucosa OR if unconsc ious or uncooperative, give 25 gram (250 mL) Dextrose 10% IV over 15 minutes per protocol OR, if no IV access, 1 mg Glucagon IM. Recheck BG in 30 minutes. May r epeat juice/soda, gel, dextrose or gluca blaire once per episode. For persistent hypoglycemia, consider longer-acting treatment for the duration of the active insulin., Routine glucose (Glutose) 40% oral geL(Linked Group 3) 15-30 g of glucose, Buccal, EVERY 30 MIN PRN, Starting on Thu09/30/21 at 0815, Until [place] 10/03/21 at 1914, Low blood sugar, For BG 50-70 mg/dL: Oral treatment preferred: If able to drink, give 120 mL Juice or Regular (not diet) soda OR If N PO, give 15 gram glucose 40% oral gel massaged into buccal mucosa OR if unconscious or uncooperative, give 25 gram (250 mL) Dextrose 10% IV over 15 minutes per pr otocol OR, if no IV access, 1 mg Glucago n IM. For BG less than 50 mg/dL: Oral treatment preferred: If able to drink, give 240 mL Juice or Regular (not diet) soda OR If NPO, give 30 gram glucose 40% o ral gel massaged in buccal mucosa OR if unconscious or uncooperative, give 25 gram (250 mL) Dextrose 10% IV over 15 minutes per protocol OR, if no IV access, 1 mg Glucagon IM. Recheck BG in 30 minutes . May repeat juice/soda, gel, dextrose o r glucagon once per episode. For persistent hypoglycemia, consider longer-acting treatment for the duration of the active insulin. 1 tube of Glutose-15 contain s 15 grams of glucose (net weight of tube = 37.5 grams.), Routin e HYDROmorphone (Dilaudid) tablet 2 mg(Linked Group 4) 2 mg, Oral, EVERY 4 HOURS PRN, Starting on Thu09/27/21 at 2323, Until Thu10/03/21 at 191, Pain, for mild pain (1-3), May give an additional 2 mg once if pain not relieved in 30-60 minutes., Routine HYDROmorphone (Dilaudid) tablet 4 mg(Linked Group 4) 4 mg, Oral, EVERY 4 HOURS PRN, Starting on Thu09/27/21 at 2323, Until Thu10/03/21 at 191, Pain, for moderate pain (4-6), May give an additional 2 mg once if pain not relieved in 30-60 minutes., Routine HYDROmorphone (Dilaudid) tablet 6 mg(Linked Group 4) 6 mg, Oral, EVERY 4 HOURS PRN, Starting on Thu09/27/21 at 2323, Until Thu10/03/21 at 1914, Pain, for severe pain (7-10), May give an additional 2 mg once if pain not relieved in 30-60 minutes., Routine ondansetron (pf) (Zofran) (2 mg/mL) injection 4 mg 4 mg, Intravenous, EVERY 8 HOURS PRN, St arting on Thu09/27/21 at 1743, Until Thu10/03/21 at 191, Nausea Linked Groups Order Group 1: POCT Fingerstick Glucose (CANCELED) Routine, 4 TIMES DAILY BEFORE MEALS & AT BEDTIME, First occurrence on Thu09/30/21 at 1100, Until Specified
Consider choosing FOUR TIMES A DAY BEFORE MEALS AND AT BEDTIME as frequency fo r: Patients who have a good hypoglycemia awareness: -Patients who are eating meals during the day and sleeping at night -Patient who are otherwise stable And insulin lispro (HumaLOG;Admelog) (100 unit/mL) subcutaneous injection vial 1-6 UnitsJump to med 1-6 Units, Subcutaneous, 4 TIMES DAILY B EFORE MEALS & NIGHTLY, First dose on Thu09/30/21 at 0915, Until Discontinued
CORRECTION BOLUS [1-6 Units] Moderate Sliding Scale (BG in mg/dL): Correction factor 20 (1 unit of insulin is expected to drop the glucose 20 mg/dL) BG 140 - 160 Give 1 unit BG 161 - 180 Give 2 units BG 181 - 200 Give 3 units BG 201 - 220 Give 4 units BG 221 - 240 Give 5 units BG greater than 240, give 6 units and recheck BG in 2 hours. - If recheck BG is LESS than 240, give n o insulin and resume schedule. - I f recheck BG is GREATER than 240, give 6 units and repeat BG in 2 hours (no more than 3 times) & call for new insulin orders. DO N OT hold if NPO, unless specifically dire cted to do so by written order. Per Blood Glucose Monitoring Policy, re-check a BG of > 240 mg/dL in 2 hours.
Routine Group 2: lidocaine (Lidoderm) 5% patch 1 patchJump to med 1 patch, Transdermal, EVERY 24 HOURS, Fi rst dose on 09/28/21 at 0015, Until Discontinued
Apply patch(es) for 12 hours, and then remove for 12 hours.
Routine And lidocaine (Lidoderm) topical patch REMOVALJump to med Transdermal, EVERY 24 HOURS, First dose on 09/28/21 at 1130, Until Discontinued
Remove lidocaine 5% patch
Group 3: glucose (Glutose) 40% oral geLJump to med 15-30 g of glucose, Buccal, EVERY 30 MIN PRN, Starting on 09/30/21 at 0815, Until [place] 10/03/21 at 1914, Low blood sugar
For BG 50-70 mg/dL: &nbs p;Oral treatment preferred: If able to d rink, give 120 mL Juice or Regular (not diet) soda OR If NPO, give 15 gram glucose 40% oral gel massaged into buccal mucosa OR if unconscious or uncooperative, gi ve 25 gram (250 mL) Dextrose 10% IV over 15 minutes per protocol OR, if no IV access, 1 mg Glucagon IM. For BG less than 50 mg/dL: Oral treatment pre ferred: If able to drink, give 240 mL Ju ice or Regular (not diet) soda OR If NPO, give 30 gram glucose 40% oral gel massaged in buccal mucosa OR if unconscious or uncooperative, give 25 gram (250 mL) De xtrose 10% IV over 15 minutes per protoc ol OR, if no IV access, 1 mg Glucagon IM. Recheck BG in 30 minutes. May repeat juice/soda, gel, dextrose or glucagon once per episode.&nb sp; For persistent hypoglycemia, consider longer-acting treatment for the duration of the active insulin. 1 tube of Glutose-15 contains 15 grams of glucose (net weight of tube = 37.5 grams.)
Routine Or dextrose 10% infusionJump to med 250 mL, at 1,000 mL/hr, Intravenous, EARLENE RY 30 MIN PRN, Starting on 09/30/21 at 0815, Until [place]abel 10/03/21 at 1914
For BG 50-70 mg/dL: Oral t reatment preferred: If able to drink, gi ve 120 mL Juice or Regular (not diet) soda OR If NPO, give 15 gram glucose 40% oral gel massaged into buccal mucosa OR if unconscious or uncooperative, give 25 gr am (250 mL) Dextrose 10% IV over 15 gala niraj per protocol OR, if no IV access, 1 mg Glucagon IM. For BG less than 50 mg/dL: Oral treatment preferred: If able to drink, give 240 mL Juice or R egular (not diet) soda OR If NPO, give 30 gram glucose 40% oral gel massaged in buccal mucosa OR if unconscious or uncooperative, give 25 gram (250 mL) Dextrose 1 0% IV over 15 minutes per protocol OR, i f no IV access, 1 mg Glucagon IM. Recheck BG in 30 minutes. May repeat juice/soda, gel, dextrose or glucagon once per episode. & nbsp; For persistent hypoglycemia, con manager programs longer-acting treatment for the duration of the active insulin.
Or glucagon (Glucagen) (1 mg/mL) injection solution 1 mgJump to med 1 mg, Intramuscular, EVERY 30 MIN PRN, S tarting on Thu09/30/21 at 0815, Until [place]abel 10/03/21 at 1914, Low blood sugar
For BG 50-70 mg/dL: Oral treatment preferred: If able to drink, g dior 120 mL Juice or Regular (not diet) soda OR If NPO, give 15 gram glucose 40% oral gel massaged into buccal mucosa OR if unconscious or uncooperative, give 25 g carlos (250 mL) Dextrose 10% IV over 15 min utes per protocol OR, if no IV access, 1 mg Glucagon IM. For BG less than 50 mg/dL: Oral treatment preferred: If able to drink, give 240 mL Juice or Regular (not diet) soda OR If NPO, give 30 gram glucose 40% oral gel massaged in buccal mucosa OR if unconscious or uncooperative, give 25 gram (250 mL) Dextrose 10% IV over 15 minutes per protocol OR, if no IV access, 1 mg Glucagon IM. Recheck BG in 30 minutes. May repeat juice/soda, gel, dextrose or glucagon once per episode. &amp ;nbsp; For persistent hypoglycemia, co nsider longer-acting treatment for the duration of the active insulin.
Routine Group 4: HYDROmorphone (Dilaudid) tablet 2 mgJump to med 2 mg, Oral, EVERY 4 HOURS PRN, Starting on Thu09/27/21 at 2323, Until Izabel 10/03/21 at 1914, Pain, for mild pain (1-3)
May give an additional 2 mg once if pain not relieved in 30-60 minutes.
Routine Or HYDROmorphone (Dilaudid) tablet 4 mgJump to med 4 mg, Oral, EVERY 4 HOURS PRN, Starting on Thu09/27/21 at 2323, Until Izabel 10/03/21 at 1914, Pain, for moderate pain (4-6)
May give an additional 2 mg once if pain not relieved in 30-60 minutes.
Routine Or HYDROmorphone (Dilaudid) tablet 6 mgJump to med 6 mg, Oral, EVERY 4 HOURS PRN, Starting on Thu09/27/21 at 2323, Until Izabel 10/03/21 at 1914, Pain, for severe pain (7-10)
May give an additional 2 mg once if pain not relieved in 30-60 minutes.
Routine documented in this encounter Care Teams Manager Intel Relationship Specialty Start Date End Date Jesusita Law MD PCP - General Family Medicine 09/03/[address] [place] [address] documented as of this encounter
--- OUTSIDE RECORDS SUMMARY | 2021-10-25 11:02 | XMS_ITS | Encounter Summary ---
:1945 Author Organization [facility] [place] [address] Care Team Providers Name Role Phone Jesusita Law MD Primary Care Provider [phone] Encounter Details Date Type Department Care Team Description 10/03/2021 Orders Only Cardiac Surgery Abdon Dawson Coronary artery [facility] MD Murali disease involving [facility] [place] [address] unstable angina [phone] CARDIOTHORACIC pectoris, uns pecified SURGERY vessel or lesion type [place], [place] [address] Social History Tobacco Use Types Packs/Day Years [...] on file documented as of this encounter Plan of Treatment Upcoming Encounters Date Type Specialty Care Team Description 11/05/2021 Appointment Radiology 11/05/2021 Office Visit Cardiac Surgery Abdon Dawson MD [facility] CARDIOTHORACIC S URGERY [place], [place] [address] (Wo rk) Scheduled Orders Name Type Priority Associated Diagnoses Order S chedule EKG 12 Lead ECG Routine Coronary artery disease Expe cted: 11/03/2021, involving [place] heart with Expires: 05/05/2022 unstable angina pectoris, unspecified vessel or lesion type documented as of this encounter Results XR Chest PA & [...] who have questions please contact the health transition of care specialist that requested your imaging first. ? Electronically signed by: Marilin Rocha MD , [facility] ([phone]), at 10/22/2021 3:37 PM Narrative 10/22/2021 3:37 PM EDT EXAMINATION: XR CHEST PA AND LATERAL (GENERIC) CLINICAL HISTORY: s/p cabg TECHNIQUE: PA and lateral views of the chest, 2 celai ges COMPARISON: Chest radiograph 09/30/2021 FINDINGS: Intact [...] 10/22/2021 EXAMINATION: XR CHEST PA AND LATERAL ([employer]) CLINICAL HISTORY: s/p cabg TECHNIQUE: PA and [...] ho have questions please contact the health transition of care specialist that requested your imaging first. Electronically signed by: Marilin Rocha MD , [facility] ([phone]), at 10/22/2021 3:37 PM Abdon Dawson MD IMG DX ORDERABLES documented in this encounter Visit Diagnoses Diagnosis Coronary artery disease involving [place] heart with unstable angina pectoris, unspecified vessel or lesion type Coronary artery disease involving [place] heart with unstable angina pectoris, unspecified vessel or lesion type documented in this encounter Care Teams Handhole Machine Operator Relationship Specialty Start Date End Date Jesusita aLw MD PCP - General Family Medicine 09/03/[address] [place] [address] documented as of this encounter
--- OUTSIDE RECORDS SUMMARY | 2021-10-25 11:02 | XMS_ITS | Encounter Summary ---
:1945 Author Organization [facility] Address [address] [place] [address] Care Team Providers Name Role Phone Jesusita Law MD Primary Care Provider [phone] Encounter Details Date Type Department Care Team Description 10/22/2021 Office Visit Vascular Surgery at [facility], Joselito Dalal, Atr ial fibrillation, [facility] unspecified type [address] [address] [place] VASCULAR SURGERY [address] [place] [address] [phone] Social History Tobacco Use Types Packs/Day Years [...] Sign Reading Time Taken Comments Blood Pressure 108/61 10/22/2021 11:26 AM EDT Pulse 79 10/22/2021 11:26 AM EDT Temperature - - Respiratory Rate - - Oxygen Saturation 98% 10/22/2021 11:26 AM EDT Inhaled Oxygen Concentration - - Weight 104.3 kg (230 lb) 10/22/2021 11:26 AM patient re ported EDT Height 170.2 cm (5' 7) 10/22/2021 11:26 AM patient rep orted EDT Body Mass Index 36.02 10/22/2021 11:26 AM EDT documented in this encounter Progress Notes Joselito Washburn MD - 10/22/2021 3:15 PM EDT Vascular Surgery Post Op Check S/p Left femoral embolectomy following cardiac surgery. Recovered well. Back at home and participating in cardiac rehab. Denies leg ischemic symptoms or wound complaints. On exam, inguinal incision well healed. No hematoma, mass, separation, drainage, or erythema. Palpable femoral and pedal pulses bilaterally. ABIs normal bilaterally. Recovered without long-term sequelae. At this point, no activity restrictions from my standpoint. Noneed for long-term follow-up with vascular surgery required. Should continue anticoagulation per cardiac surgery/cardiology. Joselito Dalal. MD Wu, MS Section of Vascular Surgery documented in this encounter Plan of Treatment Upcoming Encounters Date Type Specialty Care Team Description 11/05/2021 Appointment Radiology 11/05/2021 Office Visit Cardiac Surgery Abdon Dawson MD [facility] CARDIOTHORACIC [place], [place] [address] (Wo rk) documented as of this encounter Visit Diagnoses Diagnosis Atrial fibrillation, unspecified type documented in this encounter Care Teams Refrigeration Specialist Relationship Specialty Start Date End Date Jesusita Law MD PCP - General Family Medicine 09/03/[address] [place] [address] documented as of this encounter
--- OUTSIDE RECORDS SUMMARY | 2021-10-25 11:02 | XMS_ITS | Encounter Summary ---
:1945 [place] [address] Care Team Providers Name Role Phone Jesusita Law MD Primary Care Provider [phone] Encounter Details Date Type Department Care Team Description 10/22/2021 Tech Visit Vascular Lab at [facility] [place] [id number] Social History Tobacco Use Types Packs/Day Years [...] Office Visit Cardiac Surgery Abdon Dawson MD [facility] CARDIOTHORACIC S [place], [place] [address] (Wo rk) documented as of this encounter Procedures Procedure Name Priority Date/Time Associated Diagnosis Comme nts TONEY, LEGS, MULTIPLE Routine 10/22/2021 10:44 AM Arterial embol ism of Results for this LEVELS EDT left leg procedure are i n the results section. documented in this encounter Results TONEY, legs, multiple levels (10/22/2021 10:44 AM EDT) Component Value Ref Test Analysis Performed At [facility] Range Method Time Signature VB Text Department: Vascular Surgery Lab [facility] Report Patient: [id number] (RICHY GUERRA) CPT: 91402 Referring Physician: ABDON DAWSON ?? Indications: S/p LLE embolectomy, ? perfusion [...] ??No previous study in our vascular lab [facility] for comparison. 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
--- OUTSIDE RECORDS SUMMARY | 2021-10-25 11:02 | XMS_ITS | Clinical Summary ---
:1945 Author Organization [facility] [place] [address] Care Team Providers Name Role Phone Jesusita Law MD Primary Care Provider [phone] Allergies Active Allergy Reactions Severity Noted Date Comments Amiodarone 10/23/2015 Bluish discolor ation on face Atorvastatin Other (See Comments) Medium 10/23/2015 myositi s Lisinopril 10/22/2021 Cough Medications Medication Sig Dispensed Refills Start Date End Date Status gemfibrozil (LOPID) Take 300 mg by 0 Active 600 mg Tablet mouth 2 times daily. levothyroxine Take 125 mcg by 0 Active (Synthroid) 100 mcg mouth daily. Tablet pravastatin Take 80 mg by 0 Acti ve (PRAVACHOL) 80 mg mouth nightly. Tablet tamsulosin (Flomax) TAKE 1 CAPSULE BY 0 12/15/2019 Active 0.4 mg Capsule MOUTH TWICE DAILY gabapentin Take 200 mg by 0 01/12/2020 Act dior (Neurontin) 100 mg mouth nightly as Capsule needed. metFORMIN XR Take 1,000 mg by 0 Active (Glucophage XR) 500 mouth 2 times mg Tablet Sustained daily. Release 24 hr albuteroL 90 Inhale 1 puff 0 Act dior mcg/actuation HFA into the lungs as Aerosol Inhaler needed for Cough. triamcinolone 1 spray by Nasal 0 Active (NASACORT or NASACORT route daily. 55 OTC) 55 mcg Aerosol, mcg spray 1 spray [place] into both nostrils once a day as needed for nasal congestion acetaminophen Take 500 mg by 0 A ctive (Tylenol) 500 mg mouth as needed Tablet for Pain. Take 1-2 tablet by mouth every 6 hours prn for aches Mometasone-Formoterol Inhale 2 puffs 0 Active (Dulera) 200-5 into the lungs 2 mcg/actuation HFA times daily. Aerosol Inhaler aclidinium bromide Inhale 400 mcg 0 Active (Tudorza Pressair) into the lungs 2 400 mcg/actuation times daily. Aerosol Powdr Breath Activated aspirin 81 mg Tablet, Take 81 mg by 30 tablet 5 10/04/2021 Active Chewable mouth daily for 180 days. metoprolol tartrate Take 1 tablet by 90 tablet 2 10/03/2021 Active (Lopressor) 50 mg mouth every 8 Tablet hours for 90 days. warfarin (Coumadin) 1 Take 1-5 tablets 0 10/03/2021 Active mg Tablet by mouth daily. Take as instructed by your provider furosemide (Lasix) 20 Take 20 mg by 0 10/21/2021 Active mg Tablet mouth 2 times daily. nitroGLYcerin Nitrostat 0.4 mg sublingual tablet 0 Active (Nitrostat) 0.[address] 1 tablet by sublingual route as needed. Tablet, Sublingual potassium chloride SA TAKE 2 TABLETS BY 0 07/13/2021 Active (Klor-con) 10 mEq Tab MOUTH ONCE DAILY Sust.Rel. FOR POTASSIUM Particle/Crystal Active Problems Problem Noted Date Coronary artery disease involving [place] with un stable angina 09/24/2021 pectoris, unspecified vessel or lesion type ASCVD (arteriosclerotic cardiovascular disease) 2015 Overview: Progressive CCS Class III angina Cardiac catheterization 10/24/15: mild di ffuse CAG LAD, LCX, long 99% ost %CA with L->R collaterals S/p PCI 10/24/15: 909% ost RCA [place] x2, co mplicated by VF, defibrillated. Dobutamine MIBI ETT 10/05/15: PHR 136, no angin aor EKG changes, small infero- septal and inferior ischemia, LVEF 65% PAF (paroxysmal atrial fibrillation) 10/24/2015 Overview: Now in permanent a fib- anticoagulation and rate control S/p cardioversion on sotolol Sotolol stopped due to DUVALL Amiodarone discontinued due to side effe cts Essential hypertension 10/24/2015 Hyperlipidemia 10/24/2015 Hypothyroidism 10/24/2015 Presence of permanent cardiac pacemaker 10/24/2015 Overview: Jul 2012 Sick sinus syndrome 10/24/2015 Encounters Date Type Specialty Care Team Description 10/22/2021 Office Visit Vascular Surgery Joselito Washburn Atrial fi Mulugeta lorenzo MD unspecified typ e 10/22/2021 Office Visit Cardiac Surgery Kallie, S/P CABG (co lottie Carrion MD artery bypass g raft) 10/22/2021 Hospital Encounter Radiology Laura Dawson artery Abdon Carrion MD disease involvi ng [place] wi th unstable angina pectoris, unspe cified vessel or lesio n type 10/22/2021 Tech Visit Vascular Surgery James, Arterial em bolism of Sonia M left leg 10/13/2021 Refill Cardiac Surgery Leilani Be PA 10/03/2021 Orders Only Cardiothoracic Kallie, Coronary meghan ry Surgery Abdon Carrion MD disease involvi ng [place] wi th unstable angina pectoris, unspe cified vessel or lesio n type 10/03/2021 Orders Only Cardiothoracic Kallie, Coronary meghan ry Surgery Abdon Carrion MD disease involvi ng [place] wi th unstable angina pectoris, unspe cified vessel or lesio n type 09/29/2021 Surgery Surgery Joselito Washburn EMBOLECTOMY O R MD Mulugeta THROMBECTOMY, FEMOROPOPLITEAL , AORTOILIAC MEGHAN RY BY LEG INCISION (W RVU 19.48) 09/29/2021 Anesthesia Event Surgery Mir Arcos MD 09/27/2021 Surgery Surgery Kallie, @CABG, USING AR TERGABRIELLE Carrion MD GRAFT;SINGLE AR TERIAL GRAFT (WRVU 33. 75) 09/27/2021 Anesthesia Event Surgery Henny Castanon MD 09/27/2021 Hospital Encounter Cardiology Kallie, Coronary artery disease involving [place] with unstable angina pectoris, unspecified vessel or lesion type; - Abdon Carrion MD S/P CABG x 4; 10/03/2021 PAF (paroxysmal atrial fibrillation); Arterial emboli sm of left leg 09/24/2021 Laboratory Lab Appointment 09/24/2021 Hospital Encounter Radiology Laura Dawson artery Abdon Carrion MD disease involvi ng [place] wi th unstable angina pectoris, unspe cified vessel or lesio n type 09/24/2021 Clinical Support Coronary ar annie disease involvi ng [place] wi th unstable angina pectoris, unspe cified vessel or lesio n type 09/24/2021 Laboratory Lab Coronary artery Appointment disease involvi ng [place] wi th unstable angina pectoris, unspe cified vessel or lesio n type 09/24/2021 Office Visit Cardiac Surgery Kallie, Coronary art arlyn Carrion MD disease involvi ng [place] wi th unstable angina pectoris, unspe cified vessel or lesio n type 09/10/2021 Surgery Cardiology Vinod Munoz CARDIAC MD Jenny CATHETERIZATION 09/10/2021 Hospital Encounter General Surgery Vinod Munoz Scre ening for cardiovascular condition; MD Jenny Abnormal stress test; Chest pain, uns pecified type 08/29/2021 Orders Only Cardiology Macario Hooker Screening for cardiovascular condition; LBEN Abnormal stress test; Chest pain, uns pecified type from Last 3 Months Social History Tobacco Use Types Packs/Day Years [...] Assigned at Date Recorded Not on file Last Filed Vital Signs Vital Sign Reading Time Taken Comments Blood Pressure 123/71 10/22/2021 1:24 PM EDT Pulse 89 10/22/2021 1:24 PM EDT Temperature 36.7 ??C (98.1 ??F) 10/03/2021 7:19 AM EDT Respiratory Rate 19 10/03/2021 10:53 AM EDT Oxygen Saturation 98% 10/22/2021 1:24 PM EDT Inhaled Oxygen Concentration - - Weight 107 kg (235 lb 14.4 oz) 10/22/2021 1:24 PM EDT Height 170.2 cm (5' 7) 10/22/2021 1:24 PM EDT Reported Body Mass Index 36.95 10/22/2021 1:24 PM EDT Plan of Treatment Upcoming Encounters Date Type Specialty Care Team Description 11/05/2021 Appointment Radiology 11/05/2021 Office Visit Cardiac Surgery Abdon Dawson MD [facility] [place], [place] [address] (Wo rk) Health Maintenance Due Date Last Done Comments Covid-19 Vaccine (#1) 04/30/1950 Hepatitis C Screening 04/30/1965 Tdap adult 04/30/1966 Tetanus vaccine 04/30/1966 Colonoscopy 04/30/1992 Zoster vaccine (1 of 2) 04/30/1997 AAA Screen 04/30/2012 Pneumoccocal Vaccine: 65+ (1 - PCV) 04/30/2012 Influenza (Flu) vaccine (1 of 1 - Influenza standard 10/10/2021 series) Medical Devices Implanted Type Area Nitrogen Operator Device Shelf Model / Identifier Expiration Serial / Date Lot Cable Sternal Tapered Blunt Needle Cutti ng Edge Ss Merigold ([id number]) - [id number] N/A: [employer] 01/10/2026 [id number] / Implanted: Qty: 1 on 09/27/2021 by Abdon Dawson MD at [facility] Sternum - [employer] / [id number] Lead-07/27/2012 Lead Heart Medtronic - [id number] / Implanted: Qty: 1 on 07/27/2012 [id number] / Description: RV Lead See Pacemaker for MRI Conditions: Tim Betancourt RT(R)(CT)(MR)(ARRT), MRI Safety Technologist, 12/22/2019 Edwin Jack [id number] Pacemaker Chest Wall Med[employer] - [id number] / Implanted: Qty: 1 on 06/27/2019 by Brodie Kelly DO [id number] / Description: When scanned at [facility] on), the above implant ([id number]) is MR Conditional up to 3T. The following parameters must be followed when scanning: Scanner type Horizontal field, cylindrical bore, clinical system for hydrogen proton imaging Scanner characteristics- Static magnetic field of one of the following strengths: 1.5 T? 3 T. Maximum spatial gradient of = 20 T/m (2000 gauss/cm). Gradient systems with maximum gradient slew rate per formance per axis of = 200 T/m/s. Scanne r operation 1.5 T ? MRI radio frequency (RF) power ? Normal Operating Mode. The whole body averaged specific absorption rate (JOYCE) must be = 2.0 W/kg. The hea d JOYCE must be = 3.2 W/kg. 3 T ? MRI radio frequency (RF) power ? First Level Controlled Operating Mode or Normal Operating Mode: B1+EMMY must be = 2.8 ??T when the isocenter (center of the MRI bore) is inferior to the C7 vertebra. Scans ca n be performed without B1+RMSrestriction when the isocenter is at or superior to the C7 vertebra (see Figure 1). Patient will need to be monitored via EKG and Pul se Ox for the duration of the procedure by an ACLS Certified Nurse. Patient will need to have device placed into MRI Safe Mode by EP prior to the beginning of the exam and taken out of at the conclusion . Patient will need to have a two view c hest x-ray within 90 days prior to the MRI Exam. Tim Betancourt RT(R)(CT)(MR)(ARRT), MRI Safety Technologist, 12/22/2019 Procedures Procedure Name Priority Date/Time Associated Diagnosis Comme nts XR CHEST PA AND LATERAL Routine 10/22/2021 12:56 Coronary meghan ry Results for this PM EDT disease involving procedure are in [place] with the result s unstable angina section. pectoris, unspecified vessel or lesion type TONEY, LEGS, MULTIPLE Routine 10/22/2021 10:44 Arterial embolism of Results for this LEVELS AM EDT left leg procedure are i n the results section. SCAN DOC: TELEMETRY 10/03/2021 4:49 Resul ts for this STRIPS PM EDT procedure are i n the results section. POCT GLUCOSE Routine 10/03/2021 11:35 Results for this AM EDT procedure are i n the results section. POCT GLUCOSE Routine 10/03/2021 7:23 Results for this AM EDT procedure are i n the results section. HC UNFRACTIONATED Routine 10/03/2021 4:26 Results for this HEPARIN (HEP UFH) AM EDT procedure are in the results section. DIFFERENTIAL, AUTOMATED Routine 10/03/2021 4:26 R esults for this AM EDT procedure are i n the results section. HEMOGRAM Routine 10/03/2021 4:26 Results for this AM EDT procedure are i n the results section. HC CBC,PLT & AUTO DIFF Routine 10/03/2021 4:26 AM EDT HC PROTHROMBIN TIME Routine 10/03/2021 4:26 Resul ts for this AM EDT procedure are i n the results section. HC POTASSIUM Routine 10/03/2021 4:26 Results for this AM EDT procedure are i n the results section. SCAN DOC: TELEMETRY 10/03/2021 4:06 Resul ts for this STRIPS AM EDT procedure are i n the results section. POCT GLUCOSE Routine 10/02/2021 8:15 Results for this PM EDT procedure are i n the results section. POCT GLUCOSE Routine 10/02/2021 4:14 Results for this PM EDT procedure are i n the results section. SCAN DOC: TELEMETRY 10/02/2021 3:42 Resul ts for this STRIPS PM EDT procedure are i n the results section. HC POTASSIUM Routine 10/02/2021 2:28 Results for this PM EDT procedure are i n the results section. POCT GLUCOSE Routine 10/02/2021 10:55 Results for this AM EDT procedure are i n the results section. POCT GLUCOSE Routine 10/02/2021 7:33 Results for this AM EDT procedure are i n the results section. SCAN DOC: TELEMETRY 10/02/2021 6:34 Resul ts for this STRIPS AM EDT procedure are i n the results section. HC UNFRACTIONATED Routine 10/02/2021 3:59 Results for this HEPARIN (HEP UFH) AM EDT procedure are in the results section. DIFFERENTIAL, AUTOMATED Routine 10/02/2021 3:59 R esults for this AM EDT procedure are i n the results section. HEMOGRAM Routine 10/02/2021 3:59 Results for this AM EDT procedure are i n the results section. HC CBC,PLT & AUTO DIFF Routine 10/02/2021 3:59 AM EDT HC PROTHROMBIN TIME Routine 10/02/2021 3:59 Resul ts for this AM EDT procedure are i n the results section. HC VENIPUNCTURE Routine 10/02/2021 3:59 Results f or this AM EDT procedure are i n the results section. POCT GLUCOSE Routine 10/01/2021 7:43 Results for this PM EDT procedure are i n the results section. POCT GLUCOSE Routine 10/01/2021 5:08 Results for this PM EDT procedure are i n the results section. SCAN DOC: TELEMETRY 10/01/2021 4:44 Resul ts for this STRIPS PM EDT procedure are i n the results section. POCT GLUCOSE Routine 10/01/2021 11:49 Results for this AM EDT procedure are i n the results section. POCT GLUCOSE Routine 10/01/2021 7:54 Results for this AM EDT procedure are i n the results section. SCAN DOC: TELEMETRY 10/01/2021 5:33 Resul ts for this STRIPS AM EDT procedure are i n the results section. HC UNFRACTIONATED Routine 10/01/2021 3:25 Results for this HEPARIN (HEP UFH) AM EDT procedure are in the results section. DIFFERENTIAL, AUTOMATED Routine 10/01/2021 3:25 R esults for this AM EDT procedure are i n the results section. HEMOGRAM Routine 10/01/2021 3:25 Results for this AM EDT procedure are i n the results section. HC CBC,PLT & AUTO DIFF Routine 10/01/2021 3:25 AM EDT HC PROTHROMBIN TIME Routine 10/01/2021 3:25 Resul ts for this AM EDT procedure are i n the results section. HC VENIPUNCTURE Routine 10/01/2021 3:25 Results f or this AM EDT procedure are i n the results section. HC VENIPUNCTURE STAT 09/30/2021 8:23 Results f or this PM EDT procedure are i n the results section. POCT GLUCOSE Routine 09/30/2021 7:42 Results for this PM EDT procedure are i n the results section. SCAN DOC: TELEMETRY 09/30/2021 5:00 Resul ts for this STRIPS PM EDT procedure are i n the [...] W Routine 09/30/2021 11:20 Arterial emboli sm of Results for this CONTRAST W LMTD SPEC AM EDT left leg procedu re are in DOPP COLOR DOPP the results section. XR CHEST PA AND LATERAL Routine 09/30/2021 10:23 Results for this AM EDT procedure are i n the results section. HC PROTHROMBIN TIME Routine 09/30/2021 9:12 Resul ts for this AM EDT procedure are i n the results section. SCAN DOC: TELEMETRY 09/30/2021 6:17 Resul ts for this STRIPS AM EDT procedure are i n the [...] procedure are i n the results section. SCAN DOC: TELEMETRY 09/30/2021 2:16 Resul ts for this STRIPS AM EDT procedure are i n the results section. DIFFERENTIAL, AUTOMATED Routine 09/29/2021 8:59 R esults for this PM EDT procedure are i n the results section. HEMOGRAM Routine 09/29/2021 8:59 Results for this PM EDT procedure are i n the results section. HC CBC,PLT & AUTO DIFF Routine 09/29/2021 8:59 PM EDT SCAN DOC: TELEMETRY 09/29/2021 7:34 Resul ts for this STRIPS PM EDT procedure are i n the results section. SCAN DOC: TELEMETRY 09/29/2021 4:10 Resul ts for this STRIPS PM EDT procedure are i n the results section. BLOOD GAS 2 ARTERIAL Routine 09/29/2021 1:32 [...] esults for this UNILA PM EDT atrial fibrillation) procedu re are in the results section. SCAN DOC: TELEMETRY 09/29/2021 6:51 Resul ts for this STRIPS AM EDT procedure are i n the results section. SCAN DOC: TELEMETRY 09/29/2021 6:51 Resul ts for this STRIPS AM EDT procedure are i n the results section. HC VENIPUNCTURE Routine 09/29/2021 5:51 Results f or this AM EDT procedure are i n the results section. SCAN DOC: TELEMETRY 09/29/2021 5:41 Resul ts for this STRIPS AM EDT procedure are i n the [...] procedure are i n the results section. SCAN DOC: TELEMETRY 09/28/2021 6:07 Resul ts for this STRIPS AM EDT procedure are i n the results section. SCAN DOC: TELEMETRY 09/28/2021 6:07 Resul ts for this STRIPS AM EDT procedure are i n the results section. SCAN DOC: TELEMETRY 09/28/2021 6:06 Resul ts for this STRIPS AM EDT procedure are i n the [...] EDT procedure are in the results section. HC CBC,PLT & AUTO [...] procedure are i n the results section. SCAN DOC: TELEMETRY 09/27/2021 10:00 Resu lts for this STRIPS PM EDT procedure are i n the [...] are i n the results section. HC THROMBIN TIME STAT 09/27/2021 4:37 Results for this PM EDT procedure are i n the results section. HC FIBRINOGEN TITER STAT 09/27/2021 4:37 Resul ts for this PM EDT procedure are i n the results section. HC PARTIAL STAT 09/27/2021 4:37 Results for this THROMBOPLASTIN TIME PM EDT procedur e are in the results section. HC PROTHROMBIN TIME STAT [...] disease involving p rocedure are in [place] with the result s unstable angina section. pectoris, unspecified vessel or lesion type ENDOSCOPIC HARVEST 09/27/2021 12:51 Coronary artery VEIN(S) FOR CABG ([facility] PM EDT disease involving 0.31) [place] with unstable angina pectoris, unspecified vessel or lesion type @CABG; 3 VENOUS GRAFTS 09/27/2021 12:51 Coronary arter y & ARTERIAL GRAFT ([facility] PM EDT disease involving 10.49) [place] with unstable angina pectoris, unspecified vessel or lesion type @CABG, USING ARTERIAL 09/27/2021 12:51 Coronary artery GRAFT;SINGLE ARTERIAL PM EDT disease involving GRAFT ([facility] 33.75) [place] with unstable angina pectoris, unspecified vessel or lesion type PREPARE RBC STAT 09/27/2021 12:05 Results for this PM EDT procedure are i n the results section. POCT GLUCOSE Routine 09/27/2021 11:37 Results for this AM EDT procedure are i n the results section. ENDOSCOPIC HARVEST Routine 09/27/2021 10:15 Coronary artery VEIN(S) FOR CABG AM EDT disease involving [place] with unstable angina pectoris, unspecified vessel or lesion type @CABG,USING ARTERIAL Routine 09/27/2021 10:15 Coronary artery GRAFT;SINGLE ARTERIAL AM EDT disease involving GRAFT [place] with unstable angina pectoris, unspecified vessel or lesion type @CABG;3 VENOUS GRAFTS & Routine 09/27/2021 10:15 Coronary meghan ry ARTERIAL GRAFT AM EDT disease involving [place] with unstable angina pectoris, unspecified vessel or lesion type LAB SCAN 09/27/2021 12:00 Results for this AM EDT procedure are i n the results section. XR CHEST PA AND LATERAL Routine 09/24/2021 2:03 Coronary arter y Results for this PM EDT disease involving procedure are in [place] with the result s unstable angina section. pectoris, unspecified vessel or lesion type EKG 12-LEAD Routine 09/24/2021 1:08 Coronary artery Results f or this PM EDT disease involving procedure are in [place] with the result s unstable angina section. pectoris, unspecified vessel or lesion type TYPE AND SCREEN Routine 09/24/2021 1:06 Results f or this VALIDITY PM EDT procedure are i n the results section. ABORH RECHECK STATUS Routine 09/24/2021 1:06 Resu lts for this PM EDT procedure are i n the results section. DIFFERENTIAL, AUTOMATED Routine 09/24/2021 1:06 Coronary arter y Results for this PM EDT disease involving procedure are in [place] with the result s unstable angina section. pectoris, unspecified vessel or lesion type HEMOGRAM Routine 09/24/2021 1:06 Coronary artery Results f or this PM EDT disease involving procedure are in [place] with the result s unstable angina section. pectoris, unspecified vessel or lesion type ANTIBODY SCREEN Routine 09/24/2021 1:06 Coronary artery Result s for this PM EDT disease involving procedure are in [place] with the result s unstable angina section. pectoris, unspecified vessel or lesion type ABO/RH TYPING Routine 09/24/2021 1:06 Coronary artery Results for this PM EDT disease involving procedure are in [place] with the result s unstable angina section. pectoris, unspecified vessel or lesion type BASIC METABOLIC PANEL Routine 09/24/2021 1:06 Coronary artery Results for this (NON-FASTING) PM EDT disease involving procedure are in [place] with the result s unstable angina section. pectoris, unspecified vessel or lesion type HC CBC,PLT & AUTO DIFF Routine 09/24/2021 1:06 Coronary artery PM EDT disease involving [place] with unstable angina pectoris, unspecified vessel or lesion type HC ANTIBODY Routine 09/24/2021 1:06 Coronary artery DETECTION,CAPTURE-R PM EDT disease involving [place] with unstable angina pectoris, unspecified vessel or lesion type CARDIAC CATHETERIZATION Routine 09/10/2021 11:25 Screening for Results for this AM EDT cardiovascular procedure are in condition the results Abnormal stress test section. Chest pain, unspecified type POINT OF CARE BLOOD GAS Routine 09/10/2021 10:46 Results for this HISTORICAL AM EDT procedure are i n the results section. CORONARY ANGIOGRAPHY; W 09/10/2021 10:31 Screening for LHC,POSSIBLE PCI AM EDT cardiovascular condition Abnormal stress test Chest pain, unspecified type DIFFERENTIAL, AUTOMATED Routine 09/10/2021 10:05 Results for this AM EDT procedure are i n the results section. HEMOGRAM Routine 09/10/2021 10:05 Results for this AM EDT procedure are i n the results section. HC CBC,PLT & AUTO DIFF Routine 09/10/2021 10:05 AM EDT BMP W/FASTING GLUCOSE Routine 09/10/2021 10:05 Re sults for this AM EDT procedure are i n the results section. HC PROTHROMBIN TIME STAT 09/10/2021 10:05 Resu lts for this AM EDT procedure are i n the results section. EKG 12-LEAD Routine 09/10/2021 10:04 Screening for Results fo r this AM EDT cardiovascular procedure are in condition the results Abnormal stress test section. Chest pain, unspecified type POCT GLUCOSE Routine 09/10/2021 9:45 Results for this AM EDT procedure are i n the results section. LAB SCAN 08/29/2021 12:00 Results for this AM EDT procedure are i n the results section. LAB SCAN 08/29/2021 12:00 Results for this AM EDT procedure are i n the results section. LAB SCAN 08/29/2021 12:00 Results for this AM EDT procedure are i n the results section. from Last 3 Months Results XR Chest PA & Lateral (Generic) (10/22/2021 12:56 PM EDT)Only the most recent of 3 resultswithin the time period is included. Anatomical Region Laterality Modality Chest N/A Digital [...] who have questions please contact the health complex care nurse practitioner that requested your imaging first. ? Electronically signed by: Marilin Rocha MD , [facility] ([phone]), at 10/22/2021 3:37 PM Narrative 10/22/2021 3:37 [...] 10/22/2021 EXAMINATION: XR CHEST PA AND LATERAL (GE [...] ho have questions please contact the health complex care nurse practitioner that requested your imaging first. Electronically signed by: Marilin Rocha MD , [facility] ([phone]), at 10/22/2021 3:37 PM Abdon Dawson MD IMG DX ORDERABLES TONEY, legs, multiple levels (10/22/2021 10:44 AM EDT) Component Value Ref Test Analysis Performed At [facility] Range Method Time Signature VB Text Department: Vascular Surgery Lab [facility] Report Patient: [id number] ([address]) CPT: 71877 Referring Physician: ABDON DAWSON ?? Indications: S/p [...] Address City/State/ZIP Code Phon e Number V[facility] SCAN DOC: TELEMETRY [place] (10/03/2021 4:49 PM EDT)Only the most recent of18 resultswithin the time period is included. Narrative 10/03/2021 4:49 PM EDT This result has an attachment that is no t available. Ordered by an unspecified provider. Scanning Provider MEDIA MGR SCAN EXT ORDR/RSLT POCT Glucose (10/03/2021 11:35 AM EDT)Only the most recent of29 resultswithin the time period is included. athologist Signature POC Glucose 114 65 - 199 [facility] mg/dL [facility] Comment: Supplemental ranges: <140 mg/dL before meals <180 mg/dL all other times of the day Specimen Anatomical Collection Method Collection Time Receive d Time (Source) Location / / Volume Laterality Blood 10/03/2021 11:35 10/03/2021 AM EDT 11:35 AM EDT Adbon Dawson MD POINT OF CARE TEST ORDERABLE S Performing Organization Address City/State/[place] [address] Heparin (unfractionated) Level (10/03/2021 4:26 AM EDT)Only the most recent of5 resultswithin the time period is included. athologist Signature Heparin UFH 0.27 IU/mL [facility] LABORATORY Comment: Heparin (anti-Xa) levels should be [...] Resulting Agency Comment Spec In Lab Abdon Dawson MD HEMATOLOGY ORDERABLES Performing Organization Address City/State/[place] [address] (ABNORMAL) Hemogram (10/03/2021 4:26 AM EDT)Only the most recent of9 results within the time period is included. Analysis Performed At Patho logist Time Signature WBC 10.0 (H) 4.0 - 9.5 [facility] x10(3)/[facility] LABORATORY RBC 3.35 (L) 4.58 - [facility] 5.54 [facility] x10(6)/[facility] LABORATORY Hemoglobin 9.8 (L) 13.7 - [facility] 16.5 g/dL [facility] LABORATORY Hematocrit 29.4 (L) 40.5 - [facility] 48.5 % [facility] LABORATORY MCV 87.8 82.9 - [facility] 93.1 [facility] LABORATORY MCH 29.3 27.5 - [facility] 32.1 pg [facility] LABORATORY MCHC 33.3 32.0 - [facility] 35.7 g/dL [facility] LABORATORY Platelets 238 145 - 357 [facility] x10(3)/[facility] LABORATORY RDWSD 46.2 (H) 36.0 - [facility] 45.0 [facility] LABORATORY RDWCV 14.4 (H) 11.4 - [facility] 13.8 % [facility] LABORATORY MPV 11.0 7.6 - 12.9 [facility] LABORATORY nRBC % Auto 0.0 % [facility] LABORATORY nRBC Abs Auto 0.000 0.000 - [place] AUDREY 0.000 [facility] x10(3)/[facility] LABORATORY Specimen Anatomical Collection Method Collection Time Receive d Time (Source) Location / / Volume Laterality Blood 10/03/2021 4:26 AM 2 4:41 EDT AM EDT Resulting Agency Comment Spec In Lab Leilani CONTRERAS HEMATOLOGY ORDERABLES Performing Organization Address City/State/[place] [address] (ABNORMAL) Differential, Automated (10/03/2021 4:26 AM EDT)Only the most recent of8 resultswithin the time period is included. [facility] Method Time Signature Neutrophils % 63.0 % [facility] LABORATORY Neutr Abs (ANC) 6.33 (H) 1.70 - [facility] 6.10 [facility] x10(3)/[facility] LABORATORY Lymphocytes % 18.6 % [facility] LABORATORY Lymphocytes Abs 1.9 0.9 - 3.2 [facility] x10(3)/[facility] LABORATORY Monocytes % 11.3 % [facility] LABORATORY Monocyte Abs 1.1 (H) 0.3 - 0.9 [facility] x10(3)/[facility] LABORATORY Eosinophils % 5.9 % [facility] LABORATORY Eosinophils Abs 0.6 (H) 0.0 - 0.4 [facility] x10(3)/[facility] LABORATORY Basophils % 0.5 % [facility] LABORATORY Basophils Abs 0.0 0.0 - 0.1 [facility] x10(3)/[facility] LABORATORY Immature Gran % 0.70 % [facility] LABORATORY Comment: Immature granulocytes(IG's)percentage an d absolute count will include metamyelocytes, myelocytes, and promyelo cytes. Blood smears from CBCs yielding IG's will be scanned manually for concor dance. If this scan disagrees with the automated IG or if promyelocytes are not ed, a manual differential will be performed. Anna Gran Abs 0.07 (H) 0.00 - 0.04 x10(3)/[facility] LABORATORY Specimen Anatomical Collection Method Collection Time Receive d Time (Source) Location / / Volume Laterality Blood 10/03/2021 4:26 AM 2 4:41 EDT AM EDT Resulting Agency Comment Spec In Lab Leilani CONTRERAS HEMATOLOGY ORDERABLES Performing Organization Address City/[facility]/[place] [address] (ABNORMAL) Prothrombin Time (10/03/2021 4:26 AM EDT)Only the most recent of6 resultswithin the time period is included. athologist Signature PT 13.7 (H) 9.4 - 12.5 [facility] LABORATORY INR 1.2 [facility] LABORATORY Comment: An INR <2.0 indicates adequate [...] Resulting Agency Comment Spec In Lab Abdon Dawson MD HEMATOLOGY ORDERABLES Performing Organization Address [facility] [place] [address] Potassium (10/03/2021 4:26 AM EDT)Only the most recent of6 resultswithin the time period is included. athologist Signature Potassium 4.1 3.5 - 5.0 [facility] mmol/L [facility] LABORATORY Comment: Please note: ??Patients with WBC [...] Resulting Agency Comment Spec In Lab Abdon Dawson MD CHEMISTRY ORDERABLES Performing Organization Address City/State/ZIP [place] [address] ECHOCARDIOGRAM LMTD W CONTRAST W LMTD SPEC DOPP COLOR DOPP (09/30/2021 11:20 AM EDT) P athologist Signature EF 65 [facility] Anatomical Region Laterality Modality Cardiac Other Specimen (Source) Anatomical Collection Method Collection Time Re ceived Time Location / / Volume Laterality 09/30/2021 10:39 AM EDT Narrative 09/30/2021 1:22 PM EDT ? Echocardiogram Report Name: R[address]Y [address] ? Study Date: 09/30/2021 10:39 AMBP: 128/89 mmHg ? Patient Location: [facility] C450 A : 1945 ? Height: 170 cm ? Account: [id number] Age: 76 yrs ? Weight: 115 kg Gender: Male ?BSA: 2.2 m2 Ordering Physician: KALLIE^ABDON^P Referring Physician: Abdon Dawson Performed By: Azar Argueta, ACS, RCS Exam Location: [facility]. Interpretation Summary Patient is in atrial fibrillation during the study. Technically difficult study. LV function is normal with LVEF of 65% w ith beat to beat variability. There is a possible focal apical wall motion abnorm ality. Right ventricular size and function are normal. There is no hemodynamically significant valvular disease present. No prior transthoracic echo for comparis on. Procedure Limited - [id number]. Image enhancement Optis on was used for [...] 09/10 10:39 AMBP: 128/89 mmHg Patient Location: [place] [address] A : 1945 Height: 170 cm Account: [id number] Age: 76 yrs Weight: 115 kg Gender: Male BSA: 2.2 m2 Ordering Physician: KALLIE^ABDON^P Referring Physician: Abdon Dawson Performed By: Azar Argueta, ACS, RCS Exam Location: [facility]. Interpretation Summary Patient is in atrial fibrillation during the study. Technically difficult study. LV function is normal with LVEF of 65% w ith beat to beat variability. There is a possible focal apical wall motion abnorm ality. Right ventricular size and function are normal. There is no hemodynamically significant valvular disease present. No prior transthoracic echo for comparis on. Procedure Limited - [id number]. Image enhancement Optis on was used for [...] - 6-14 large Aneurysmal 15-16 diffuse Abdon Dawson MD ECHO ORDERABLES (ABNORMAL) Basic Metabolic Panel (non-fasting) (09/30/2021 3:25 AM EDT)Only the most recent of3 resultswithin the time period is included. athologist Signature Glucose Lvl 142 65 - 199 [facility] mg/dL [facility] LABORATORY Comment: Diabetes: >=200 mg/dL plus symp toms BUN 14 10 - 20 mg/dL [facility] LABORATORY Creatinine 0.71 (L) 0.80 - 1.50 mg/dL [facility] LABORATORY Sodium 138 135 - 145 mmol/L [facility] LABORATORY Potassium 4.0 3.5 - 5.0 mmol/L [facility] LABORATORY Comment: Please note: ??Patients with WBC >100,00 0 may have falsely elevated Potassium levels. ??For accurate Potassium quantif ication in these patients send serum separator tube (gold top) for subsequent determinations. ??Contact the Clinical Chemistry Laboratory if there are any qu estions. Chloride 104 98 - 107 mmol/L [facility] LABORATORY CO2 24 22 - 31 mmol/L [facility] LABORATORY Anion Gap 10 5 - 15 mmol/L [facility] LABORATORY Calcium 8.3 (L) 8.5 - 10.5 mg/dL [facility] K [facility] LABORATORY Comment: result rechecked-sf Estimated GFR 96 >=60 mL/min/1.73 m?? [facility] LABORATORY Comment: This patient's estimated GFR was [...] Resulting Agency Comment Spec In Lab Abdon Dawson MD CHEMISTRY ORDERABLES Performing Organization Address City/State/[place] [address] (ABNORMAL) BLOOD GAS 2 ARTERIAL (09/29/2021 1:32 PM EDT)Only the most recent of8 resultswithin the time period is included. Analysis Performed At Patho logist Time Signature pH Art 7.36 7.35 - [facility] 7.45 [facility] LABORATORY pCO2 Art 39 35 - 45 [facility] LABORATORY pO2 Art 209 (H) 85 - 104 [facility] LABORATORY HCO3 Art 21.2 20.0 - [facility] 26.0 [facility] mmol/L [facility] LABORATORY BE Art -4.0 (L) -3.0 - 3.0 [facility] mmol/L [facility] LABORATORY Hgb Blood Gas 11.5 (L) 13.7 - [facility] 16.5 g/dL [facility] LABORATORY O2HB Art 98.5 (H) 94.0 - [facility] 97.0 % [facility] LABORATORY COHB Art 0.4 % [facility] LABORATORY Comment: Nonsmokers: 0.5-1.5% COHB Smokers: Variable, but usually less than 10% Toxic: 20-30% COHB Lethal: Greater than 60% COHB METHB Art 0.3 <=1.5 % [facility] LABORATORY Na Whole Blood 134 (L) 135 - 145 mmol/L [facility] LABORATORY K Whole Blood 3.8 3.5 - 5.0 mmol/L [facility] LABORATORY Comment: Please note: Patients with WBC >100,000 may have falsely elevated Potassium levels. Contact the Clinical Chemistry L aboratory if there are any questions. ICa Whole Blood 1.12 (L) 1.15 - 1.33 mmol/L [facility] LABORATORY Comment: Note: ??Total bilirubin higher than 20 m g/dL may lead to falsely low ionized calcium. CL Whole Blood 104 98 - 107 mmol/L [facility] LABORATORY Gluc Whole Bld 134 65 - 199 mg/dL [facility] LABORATORY Comment: Diabetes: >=200 mg/dL plus symp toms. Lactate WB 1.4 0.5 - 2.2 mmol/L [facility] LABORATORY FIO2 Art 60 % [facility] LABORATORY Flow Art 1.0 LPM [facility] LABOR[facility] PF Ratio Art 348 [facility] LABORATORY Temp Art 38.2 Celsius [facility] LABORATORY Specimen Anatomical Collection Method Collection Time Receive d Time (Source) Location / / Volume Laterality Blood 09/29/2021 1:32 PM 2 1:32 EDT PM EDT Abdon Dawson MD CHEMISTRY ORDERABLES Performing Organization Address City/State/[place] [address] Arterial Duplex Leg, Unil (09/29/2021 12:08 PM EDT) Component Value Ref Test Analysis Performed At [facility]ist Range Method Time Signature VB Text Department: Vascular Surgery Lab [facility] Report Patient: [id number] ([address]) CPT: 37763 Referring Physician: JOSELITO WASHBURN ?? Phone: Indications: [...] Address City/State/ZIP Code Phon e Number [place] (ABNORMAL) Troponin (09/28/2021 2:15 AM EDT) P athologist Signature Troponin-T 0.31 (H) 0.00 - [place] VENTURA 0.00 ng/mL [facility] LABORATORY Comment: The 99th percentile for Troponin T is le ss than 0.01 ng/mL, any detectable cTnT concentration using this assay should be considered elevated. According to the third universal definit ion of myocardial infarction the following criteria with a clinical prese ntation consistent with acute myocardial ischemia meets the diagnosis for a myocardial infarction (MA). Detection of a rise and/or fall of [...] additional sample may be indicated. Reference: Third [place] Definition of Myocardial Infarction. Journal of the [employer] 2012;60:1581-98 Specimen Anatomical Collection Method Collection Time Receive d Time (Source) Location / / Volume Laterality Blood 09/28/2021 2:15 AM 2 2:27 EDT AM EDT Resulting Agency Comment Spec In Lab Abdon Dawson MD CHEMISTRY ORDERABLES Performing Organization Address City/[facility]/ZIP Code Phon e Number [address] (ABNORMAL) Hemoglobin (09/27/2021 9:30 PM EDT)Only the most recent of2 results within the time period is included. athologist Signature Hemoglobin 11.2 (L) 13.7 - [facility] 16.[facility] g/dL [facility] LABORATORY Specimen Anatomical Collection Method Collection Time Receive d Time (Source) Location / / Volume Laterality Blood 09/27/2021 9:30 PM 2 9:34 EDT PM EDT Resulting Agency Comment Spec In Lab Abdon Dawson MD HEMATOLOGY ORDERABLES Performing Organization Address City/[facility]/[place] [address] XR Chest One View [...] who have questions please contact the health complex care nurse practitioner that requested your imaging first. ? Electronically signed by: Angela Blanton, [facility] ([phone]), at 09/27/2021 6:36 PM Narrative 09/27/2021 6:36 [...] ho have questions please contact the health complex care nurse practitioner that requested your imaging first. Electronically signed by: Angela Blanton, [facility] ([phone]), at 09/27/2021 6:36 PM Abdon Dawson MD IMG DX ORDERABLES EKG 12 Lead (09/27/2021 5:47 PM EDT)Only the most recent of3 resultswithin the time period is included. Component Value Ref Range Test Analysis Performed Pathologis t Method Time At Signature Ventricular rate 80 BPM MUSE SYSTEM Atrial Rate 80 BPM MUSE SYSTEM P-R Interval 298 ms MUSE SYSTEM QRS Duration 148 ms MUSE SYSTEM Q-T Interval 482 ms MUSE SYSTEM QTC Calculated 555 ms MUSE SYSTEM (Bezet) Calculated P [place] 102 degrees MUSE SYSTEM Calculated R [place] 102 degrees MUSE SYSTEM Calculated T [place] -46 degrees MUSE SYSTEM INTERPRETATION Suspect arm lead reversal, interpreta tion assumes no reversal MUSE SYSTEM Sinus rhythm with 1st degree A-V block Right bundle branch block Marked T-wave abnormality, consider inferolateral ischemia Abnormal ECG When compared with ECG of 24-SEP-2021 13:08, Sinus rhythm has replaced Electronic ventricular pacemaker Confirmed by MD CARLOS, JOANNA ([id number]) on 09/30/2021 1:18:33 PM Specimen Anatomical Collection Method Collection Time Receive d Time (Source) Location / / Volume Laterality 09/27/2021 5:47 PM 2 1:18 EDT PM EDT Abdon Dawson MD ECG ORDERABLES Performing Organization Address City/[facility]/ZIP Code Phon e Number MUSE SYSTEM APTT (09/27/2021 4:37 PM EDT) P athologist Signature PTT 33 25 - 37 sec [facility] LABORATORY Comment: OR Result called by [...] Castanon MD HEMATOLOGY ORDERABLES Performing Organization Address City/[facility]/[place] [address] (ABNORMAL) Thrombin time (09/27/2021 4:37 PM EDT) athologist Signature Thrombin Time 19 (H) 10 - 17 [facility] LABORATORY Comment: OR Result called by ?? PARSAD OR Result s read back by: ? Lynsday Richard at 2021-09-27 16:57:25 A prolongation in [...] Castanon MD HEMATOLOGY ORDERABLES Performing Organization Address City/[facility]/ZIP Code Phon e Number [address] Fibrinogen (09/27/2021 4:37 PM EDT)Only the most recent of2 resultswithin the time period is included. athologist [facility] Fibrinogen 247 200 - 393 [facility] mg/dL [facility] LABORATORY Comment: OR Result called by [...] Castanon MD HEMATOLOGY ORDERABLES Performing Organization Address City/[facility]/ZIP [facility] Phon e Number [address] Prepare cryoprecipitate (09/27/2021 4:20 PM EDT) athologist [facility] Dispensed? Yes [facility] LABORATORY Specimen Anatomical Collection Method Collection Time Receive d Time (Source) Location / / Volume Laterality Blood 09/27/2021 4:20 PM 2 4:19 EDT PM EDT Abdon Dawson MD BLOOD BANK ORDERABLES Performing Organization Address City/[facility]/[place] [address] Platelet count (09/27/2021 3:40 PM EDT) athologist Signature Platelets 164 145 - 357 [facility] x10(3)/[facility] LABORATORY Plat Immature 3.8 0.0 - 7.4 [place] AUDREY % % [facility] LABORATORY Comment: Limitation of the Immature Platelet Frac tion (IPF)-May be less reliable when the platelet count is less than 86c860/u L due to statistical imprecision. The IPF [...] in a decreased state of production. References: [employer] The Clinical Value of the Immature Platelet Fraction (IPF) in Cell Recovery Document Number 10-1143 07/2010 [employer] The Role of the Imm ature Platelet Fraction (IPF) in the Differential Diagnosis of Thrombocytopen ia, Document MKT-10-1209 V05 P0514 Specimen Anatomical Collection Method Collection Time Receive d Time (Source) Location / / Volume Laterality Blood 09/27/2021 3:40 PM 2 3:55 EDT PM EDT Resulting Agency Comment Spec In Lab Abdon Dawson MD HEMATOLOGY ORDERABLES Performing Organization Address City/[facility]/[place] [address] (ABNORMAL) Hematocrit (09/27/2021 3:40 PM EDT) athologist Signature Hematocrit 27.7 (L) 40.5 - [place]OCK 48.5 % [facility]ORATORY Comment: This result has been called to LYNDSAY HARRIS by Ambrosio Pena on 09 27 2021 at 1602, and has been read back. Specimen Anatomical Collection Method Collection Time Receive d Time (Source) Location / / Volume Laterality Blood 09/27/2021 3:40 PM 3:55 EDT PM EDT Resulting Agency Comment Spec In Lab Abdon Dawson MD HEMATOLOGY ORDERABLES Performing Organization Address City/State/ZIP Code Phon e Number [place] [id number] [facility] LABORATORY Drive Transesophageal Echo/OR (09/27/2021 12:56 PM [...] Age: 76 Years Gender: Male Ordering Physician: [id number]^KALLIE^ABDON^P^^^^^EPIC^^^^PROV ID Referring Physician: [id number]^UNKNOWN^^^^^^ ^EPIC^^^^PROVID ? Conclusions Intraoperative GIUSEPPE performed to [...] 09/27/2021, 4: 32 PM Ordering Physician: ABDON DAWSON Referring Physician: UNKNOWN Procedure Note Henny Castanon MD - 09/27/2021 Version: 1 Name: R[address]Y ST[address] Study Date: 09/09, 12: 56 PM Patient Location: [facility] : 1945 (MM/DD/YYYY) Age: 76 Years Gender: Male Ordering Physician: [id number]^KALLIE^ABDON^Murali^^^^^EPIC^^^^PROV ID Referring Physician: [id number]^UNKNOWN^^^^^^ ^EPIC^^^^PROVID Conclusions Intraoperative GIUSEPPE performed to confirm [...] 09/27/2021, 4: 32 PM Ordering Physician: ABDON DAWSON Referring Physician: UNKNOWN Abdon Dawson MD ECHO ORDERABLES Prepare RBC (09/27/2021 12:05 PM EDT) athologist Signature Dispensed? Yes [facility] LABORATORY Specimen Anatomical Collection Method Collection Time Receive d Time (Source) Location / / Volume Laterality Blood 09/27/2021 12:05 09/27/2021 PM EDT 12:02 PM EDT Abdon Dwason MD BLOOD BANK ORDERABLES Performing Organization Address City/State/ZIP Code Phon e Number [place] [id number]OSP[address] LAB[address] SCAN DOC: LAB (09/27/2021 12:00 AM EDT)Only the most recent of4 resultswithin the time period is included. Narrative 09/27/2021 12:00 AM EDT This result has an attachment that is no t available. Ordered by an unspecified provider. Scanning Provider MEDIA MGR SCAN EXT ORDR/RSLT Type and Screen Validity (09/24/2021 1:06 PM EDT) [facility] Method Time Signature T&S only valid [facility] LABORATORY Comment: This Type and Screen result is only valid at the [facility] Specimen Anatomical Collection Method Collection Time Receive d Time (Source) Location / / Volume Laterality Blood 09/24/2021 1:06 PM 2 1:15 EDT PM EDT Resulting Agency Comment Spec In Lab Abdon Dawson MD BLOOD BANK ORDERABLES Performing Organization Address City/[facility] [place] [address] ABORH Recheck Status (09/24/2021 1:06 PM EDT) [facility] Method Time Signature ABORH Type Completed [facility] LABORATORY Specimen Anatomical Collection Method Collection Time Receive d Time (Source) Location / / Volume Laterality Blood 09/24/2021 1:06 PM 2 1:15 EDT PM EDT Resulting Agency Comment Spec In Lab Abdon Dawson MD BLOOD BANK ORDERABLES Performing Organization Address City/[facility]/[place] [address] ABO/Rh Typing (09/24/2021 1:06 PM EDT) P athologist Signature ABORh Type O Neg [facility] LABORATORY Specimen Anatomical Collection Method Collection Time Receive d Time (Source) Location / / Volume Laterality Blood 09/24/2021 1:06 PM 2 1:15 EDT PM EDT Resulting Agency Comment Spec In Lab Abdon Dawson MD BLOOD BANK ORDERABLES Performing Organization Address City/[facility]/[place] [address] Antibody screen (09/24/2021 1:06 PM EDT) Patholo gist Method Time Signature Ab Screen Negative [facility] Expires at 09/30/2021 MAIRA VENTURA [id number] on: [facility]ORY Specimen Anatomical Collection Method Collection Time Receive d Time (Source) Location / / Volume Laterality Blood 09/24/2021 1:06 PM 1:15 EDT PM EDT Resulting Agency Comment Spec In Lab Abdon Dawson MD BLOOD BANK ORDERABLES Performing Organization Address City/[facility]/[place] [address] CARDIAC CATHETERIZATION (09/10/2021 11:25 AM EDT) Anatomical Region Laterality Modality Other Specimen (Source) Anatomical Location Collection Method / Collectio n Time Received Time / Laterality Volume Narrative 09/10/2021 11:54 AM EDT ?[facility] ? Cardiac Cathete rization/Intervention Report ? Patient Name: Violetteo Richy R. ? Procedure Date: 09/10/2021 ? A #: [id number] ? Primary Physician: Tammy, Vinod T ? Case #: [id number] ? File Name: [id number] ? Catheterization Order Number: [id number] ? [facility] ? Final Report [place], [place] ? Patient Name: ? Richy R. Gra mmo ?ID#: ?[id number] ? : ?1945 ? Procedure Date: ? September 10, 2021 ? Case #: ? [id number] ? Room: ? 6 ? Case Physician: ? Vinod Munoz MKathiD. ?Start: ?10:44 ?Fellow: ? Bubba Dimas D.O. ?Admission: ??09/10/2021 ?Annalise villa M.D. ? Referring Physician: ??Rich Reyes ? Procedures: ?* Coronary Angiography ?* Left Heart Catheterization ?* Arterial Blood Gases ? History ?Richy Street is a 76 year old man. He has hypertension and a family ?history of coronary artery dise ase. The patient's smoking status is ?Unknown. He has hypercholestero lemia managed with lipid therapy. The ?patient had a remote coronary i ntervention procedure. He has a history of ?atrial fibrillation/atrial flut ter. The patient has a PPM implantation. ?He also has a history of caroti d artery disease, a carotid endarterectomy ?and a history of transient isch emic attacks. Prior to the initiation of ?this procedure, the patient was designated as ASA Class II. The CSHA ?clinical frailty scale is 3: Isabela Leonard. ? Diagnostic Tests: ?Prior Coronary Angiography: ? Prior coronary angiograp hy was performed on 10/24/2015 and showed ? obstructive CAD. LV ejec tion fraction within 6 months is 58%. ?Electrocardiography: ? EKG was assessed by ECG. EKG was Abnormal. EKG showed other ? abnormality. ?Stress or Imaging Studies: ? A stress test with SPECT imaging was performed on 08/23/2021 and was ? Positive with Intermedia te results. ?Medications Prior to Procedure: ? Aspirin, Calcium Channel Blocking Agent and Statin. ? Indications for Diagnostic Cath: ?The priority of the diagnostic procedure was Elective. The indication for ?the manufacturing laborer visit is worsening angina. Chest pain symptom assessment ?was: Typical Angina. ? Technique: ?A 6 SLFr sheath was inserted in the right radial artery utilizing the ?Seldinger technique. The left c oronary artery was injected utilizing a ?5Fr DIPESH RADIAL catheter. A 5F r DIPESH RADIAL catheter was used to inject ?the right coronary artery. Left ventricular pressure was performed ?utilizing a 5Fr DIPESH RADIAL ca theter. 7,000 units of heparin were ?administered. A total of 150cc of Iso-Gifty were opened, 90cc of Iso-Gifty ?were administered and 60cc of I so-Gifty were wasted. Radiation: Fluoro time ?was 12.4 minutes, dose area pro duct was 118,000 mGYcm2 and air kerma was ?1,254 mGY. See the case log for additional details. ?The patient received the follow ing medications prior to and during the ?procedure: ? Unfractionated Heparin. ? Hemodynamics: ?Left Heart Pressures ? Resting: ? Syst D iast ? EDP ?a ?v ? m ?Ao 112 ?? 55 ?77 ?LV 142 ? 20 ?Comments: ??LV pullback: ??LV14 0, EDP 20. ??Ao 138/65 (90). ? Coronary Angiography: ?Dominance: Right ?Left Main ? There was mild diffuse ( <=25% stenosis) disease of the entire vessel ? segment of the left main artery. ??The distal segment of the left ? main had 30% stenosis. ?Left Anterior Descending ? There was mild diffuse ( <=25% stenosis) disease of the entire vessel ? segment of the left ante rior descending artery (LAD). ??The ostial ? segment of the LAD had a calcified, calcified and hazy single ? discrete 80% stenosis. ? ?Distal flow was decreased (CAYDEN Grade 2). ? There also was an 85% ca lcified single discrete stenosis of the mid ? segment of the LAD. ? There was a 90% single d iscrete stenosis of the ostial segment of ? the first diagonal branc h (Diagonal 1) of the LAD. ?Left Circumflex ? There was mild diffuse ( <=25% stenosis) disease of the entire vessel ? segment of the left circ umflex artery (LCX). ??The ostial segment of ? the LCX had 75% stenosis . ? There was a 65% calcifie d single discrete stenosis of the ostial ? segment of the first obt use marginal branch (OM1) of the LCX. ??The ? OM1 was moderate in size . ?Right Coronary Artery ? There was mild diffuse ( <=25% stenosis) disease of the entire vessel ? segment of the right cor onary artery (RCA). ??The ostial segment of ? the RCA had a calcified single discrete 50% stenosis. ??This lesion ? represented in-stent res tenosis following a prior coronary stent ? insertion. ? Vascular Access: ?Vascular Access Management: ? Mechanical Compression o f the right radial artery access site was ? performed. ? Point of Care Testing: ?ABG: ? Arterial Blood gasses we re performed using the I-Stat analyzer at ? 10:46: pH: 7.42, pCO2: 3 8.7, pO2: 96.0, sPO2: 98%, HCO3: 25 on FIO2: ? room air. ?I-Stat: ? I-Stat was performed stephanie molina the I-Stat analyzer at 10:46: Na+: 140, ? K+: 3.8, iCa++: 1.16, Hc t: 40%, Hb: 13.6. ? Conclusions: ?* Three vessel coronary artery disease (LAD, LCX and RCA) ?* Elevated left ventricular end diastolic pressure ? Complications/Events: ?The patient had no complication s during these procedures. ? Recommendations: ?Based upon the results of this procedure, it was recommended that ?coronary artery bypass surgery be considered. ? Comments: ?Referral for Coronary Artery By pass Surgery. ?The attending physician was presen t for the entire procedure. ?Dr. Vinod Munoz M.D. was pres ent during the moderate sedation ?intraservice time as documented by the sedation nurse. ??Case time = 00:31. ?Dr. Vinod Munoz M.D. performe d the coronary angiography, left heart ?catheterization and ABG. ? Vinod Fernandezries, M.D. ? Electronically Signed by: Vinod Estrada s, M.D. ? Report Finalized: 09/10/2021 ??11:46 ? Report Last Ammended: 09/10/2021 ??14:35 ? Vinod Munoz MD CARDIAC CATH ORDERABLES (ABNORMAL) Point of Care Blood Gas Historical (09/10/2021 10:46 AM EDT) [facility] Method Time Signature POC pH 7.42 7.35 - [facility] 7.45 [facility] POC PCO2 39 35 - 45 [facility] POC PO2 96 85 - 104 [facility] POC Base Excess 1.0 -3.0 - 3.0 [facility] K mmol/L [facility] POC HCO3 25.1 20.0 - [facility] 26.0 [facility] Sodium 140 135 - 145 [facility] mmol/L [facility] POC Potassium 3.8 3.5 - 5.0 [facility] mmol/L [facility] POC Ionized Ca 1.16 1.15 - [facility] 1.33 [facility] mmol/[facility] POC Hematocrit 40.0 40.0 - [facility] 51.0 % [facility] POC Calc Hgb 13.6 (L) 13.7 - [facility] 17.5 g/dL [facility] Comment: The calculation of hemoglobin f rom hematocrit assumes a normal MCHC. POC Bgas Loc CC LAB [facility] Specimen Anatomical Collection Method Collection Time Receive d Time (Source) Location / / Volume Laterality Blood 09/10/2021 10:46 09/12/2021 AM EDT 12:00 PM EDT Vinod Munoz MD CHEMISTRY ORDERABLES Performing Organization Address City/State/[place] [address] (ABNORMAL) BMP w/fasting Glucose (09/10/2021 10:05 AM EDT) athologist Signature Glucose 141 (H) 65 - 99 [facility] Fasting mg/dL [facility] Comment: ?Fasting* Glucose Interpretive C riteria Normal ?65-99 mg/dL Impaired Fasting glucose ?100-125 mg/dL Consistent with Diabetes Mellitus ? >or= 126 mg/dL *Fasting is defined as no caloric intake for at least 8 hours In the absence of unequivocal hypergly cemia a plasma glucose value of >or= 126 mg/dL should be repeated on a subseq uent day. Diagnosis and Classification of Diabetes Mellitus, Position Statement from the [employer]. ??Diabete s Care, Volume 33, Supplement 1, Feb 2009 BUN 17 10 - 20 mg/dL [facility] Creatinine 0.90 0.80 - 1.50 mg/dL [facility] Sodium 140 135 - 145 mmol/L [facility] Potassium 4.0 3.5 - 5.0 mmol/L [facility] Comment: Please note: ??Patients with WBC >100,00 0 may have falsely elevated Potassium levels. ??For accurate Potassium quantif ication in these patients send serum separator tube (gold top) for subsequent determinations. ??Contact the Clinical Chemistry Laboratory if there are any qu estions. Chloride 102 98 - 107 mmol/L [facility] CO2 26 22 - 31 mmol/L [facility] Anion Gap 12 5 - 15 mmol/L [facility] Calcium 9.1 8.5 - 10.5 mg/dL [facility] Estimated GFR 90 >=60 mL/min/1.73 m?? [facility] Comment: This patient's estimated GFR was [...] (Source) Location / / Volume Laterality Blood 09/10/2021 10:05 09/10/2021 AM EDT 10:20 AM EDT Resulting Agency Comment Spec In Lab Vinod Munoz MD CHEMISTRY ORDERABLES Performing Organization Address City/State/[place] [address] from Last 3 Months Insurance Payer Benefit Plan / Subscriber ID Effective Phone Address T ype Group Dates MEDICARE MEDICARE PART [id number] 2019-Pres [phone] [facility] [place] [id number] [employer] [place] [id number] 2012-Prese [phone] [address] LIABILITY LIABILITY [address] [place] [address] Advance Directives Documents on File Type Date Recorded 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 on Advance Directives and Living 04/10/2010 8:05 AM Will Latest Code Status on File Code Status Date Activated Date Inactivated Comments Attempt Cardiopulmonary Resuscitation - 09/27/2021 5:36 PM 022 7:19 PM Inpatient Code Status decision made by: Patient Full Code 09/27/2021 11:49 AM 09/27/2021 5:36 PM Does patient have capacity to make decision: Yes Attempt Cardiopulmonary Resuscitation - 09/10/2021 10:11 AM 09/11/19 4:41 PM Inpatient Code Status decision made by: Patient Full Code 10/24/2015 8:45 AM 10/25/2015 12:38 PM Does patient have capacity to make decision: Yes Care Teams Continuity Tester Relationship Specialty Start Date End Date Jesusita Law MD PCP - General Family Medicine 09/03/[address] [place] [address]
--- OUTSIDE RECORDS SUMMARY | 2021-10-25 11:02 | XMS_ITS | Encounter Summary ---
:1945 Author Organization [facility] Address [facility] [place] [address] Care Team Providers Name Role Phone Jesusita Law MD Primary Care Provider [phone] Encounter Details Date Type Department Care Team Description 10/22/2021 Office Visit Cardiac Surgery at [facility] S/Murali SANTOS (coronary [facility], MD artery bypass graft) [facility] [address] [place] C[place]OTHORACIC [id number] SURGERY [phone] [place] [id number] Social History Tobacco Use Types Packs/Day Years [...] Pulse 89 10/22/2021 1:24 PM EDT Temperature - - Respiratory Rate - - Oxygen Saturation 98% 10/22/2021 1:24 PM EDT Inhaled Oxygen Concentration - - Weight 107 kg (235 lb 14.4 oz) 10/22/2021 1:24 PM EDT Height 170.2 cm (5' 7) 10/22/2021 1:24 PM EDT Reported Body Mass Index 36.95 10/22/2021 1:24 PM EDT documented in this encounter Progress Notes [facility] Dawson MD - 10/22/2021 2:30 PM EDT Post-OP Note: Jesusita Law MD [address] [facility] [place] [address] JESUSITA Miller OMAYRAKAREN Guerra returns to clinic following his CABG surgery. Since discharge, he has been doing well. Pain is under reasonable control. He is eating well, urinating, and moving his bowels without problems. He has had no fevers, chills, or other problems with the wounds. He has been reasonably active. Problem List Patient Active Problem List Diagnosis ??? 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 Sick sinus syndrome Past Medical History Past Medical History: Diagnosis Date ??? ASCVD [...] sinus syndrome 10/24/2015 ??? Stroke Past Surgical History Past Surgical History: Procedure Laterality Date ??? CORONARY ANGIOPLASTY WITH STENT PLACEMENT ??? PACEMAKER IMPLANT ? ? PRG CATH [facility] LEFT HEART CATH & ARTS W/INJ & ANGIO IMG S&I N/A 09/10/2021 CORONARY ANGIOGRAPHY; W LHC,POSSIBLE PCI performed by Vinod Hassan MD at [facility] CATH LABS ??? PRO CABG, ARTERIAL, SINGLE N/A 09/27/2021 @CABG, USING ARTERIAL GRAFT;SINGLE ARTERIAL GRAFT (WRVU 33.75) performed by Abdon Dawson MD at [facility] MAIN OR ??? PRO CABG, ARTERY-VEIN, THREE N/A 09/27/2021 @CABG; 3 VENOUS GRAFTS & ARTERIAL GRAFT (WRVU 10.49) performed by Abdon Dawson MD at [facility] MAIN OR ??? PRO EMBLC/THRMBC FEMORAL POPLITEAL AORTO-ILIAC ARTERY Left 09/29/2021 EMBOLECTOMY OR THROMBECTOMY, FEMOROPOPLITEAL, AORTOILIAC ARTERY BY LEG INCISION (WRVU 19.48) performed by Joselito Washburn MD at [facility] MAIN OR ??? PRO ENDOSCOPY W/VIDEO-ASST VEIN HARVEST, CABG N/A 09/27/2021 ENDOSCOPIC HARVEST VEIN(S) FOR CABG (WRVU 0.31) performed by Abdon Dawson MD at [facility] MAIN OR No outpatient medications have been marked as taking for the 10/22/21 encounter (Office Visit) with Abdon Dawson MD. Patient Vitals for the past 24 hrs: Pulse BP SpO2 10/22/21 1324 89 123/71 98 % 107 kg (235 lb 14.4 oz) Weight: 107 kg (235 lb 14.4 oz) On physical exam, he looks well. Incisions are healing well without erythema or signs of infection. Lungs are clear bilaterally. Heart is RR&R. ECG shows no acute changes. CXR shows clear lung early and sternal cables are in place. Echo was not performed. Assessment and Plan: Overall he is doing very well following his surgery. I told him that he may continue to increase hisactivity as tolerated. I told him I would be happy to see him again should any further problems arise. Sincerely, [facility]don Dawson MD documented in this encounter Plan of Treatment Upcoming Encounters Date Type Specialty Care Team Description 11/05/2021 Appointment Radiology 11/05/2021 Office Visit Cardiac Surgery [facility] MD [facility] CARDIOTHORACIC [address] [place], [place] [address] (Wo rk) documented as of this encounter Visit Diagnoses Diagnosis S/P CABG (coronary artery bypass graft) Postsurgical aortocoronary bypass status documented in this encounter Care Teams Roof Painter Relationship Specialty Start Date End Date Jesusita Law MD PCP - General Family Medicine 09/03/[address] [place] [address] documented as of this encounter
--- OUTSIDE RECORDS SUMMARY | 2021-10-25 11:02 | XMS_ITS | Encounter Summary ---
:1945 Author Organization [facility] [place] [address] Care Team Providers Name Role Phone Jesusita Law MD Primary Care Provider [phone] Encounter Details Date Type Department Care Team Description 10/03/2021 Orders Only Cardiac Surgery [facility] Dawson Coronary artery [facility] MD Murali disease involving [facility] [place] [address] unstable angina [phone] CARDIOTHORACIC pectoris, uns pecified SURGERY vessel or lesion type [place], [place] [address] Social History Tobacco Use Types [...] Office Visit Cardiac Surgery Abdon Dawson MD [facility] ER CARDIOTHORACIC S URGERY [place], [place] [address] (Wo rk) Scheduled Orders Name Type Priority Associated Diagnoses Order S chedule XR Chest PA & Lateral Imaging Routine Coronary artery dis ease Expected: 10/17/2021, (Generic) involving [place] heart Expir es: 04/18/2022 with unstable angina pectoris, unspecified vessel or lesion type documented as of this encounter Visit Diagnoses Diagnosis 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
--- OUTSIDE RECORDS SUMMARY | 2021-10-25 11:03 | XMS_ITS | Encounter Summary ---
:1945 Author Organization [facility] [place] [address] Care Team Providers Name Role Phone Jesusita Law MD Primary Care Provider Reason for Visit Auth/Cert Specialty Diagnoses / Procedures Referred By Contact Refer red To Contact Diagnoses Coronary artery disease involving ivanof bay heart with unstable angina pectoris, unspecified vessel or lesion type cad Abdon Arreguin MD [facility] Procedures PRO CABG, ARTERIAL, SINGLE PRO CABG, ARTERY-VEIN, THREE PRO ENDOSCOPY W/VIDEO-ASST VEIN HARVEST, CABG @CABG, USING ARTERIAL GRAFT;SINGLE ARTERIAL GRAFT (WRVU 33.75) @CABG; 3 VENOUS GRAFTS & ARTERIAL GRAFT (WRVU 10.49) [facility] ENDOSCOPIC HARVEST VEIN(S) FOR CABG (WRV U 0.31) CARDIOTH[place]AC[place] [address] Referral ID Status Reason Start Date Expiration Date Visits Requ ested Visits Authorized [id number] 1 1 Encounter Details Date Type Department Care Team Description 09/29/2021 Surgery Main Operating Room Rebecca Washburn rn, EMBOLECTOMY OR [facility] THROMBECTOMY, [facility] FEMOROPOPLITEAL, [facility] VASCULAR SURG [place] [address] LEG INCISION ([place] [address] 19.48) [phone] Social History Tobacco Use Types Packs/Day Years [...] Sign Reading Time Taken Comments Blood Pressure 127/71 09/29/2021 4:56 PM EDT Pulse 88 09/29/2021 4:56 PM EDT Temperature 36.7 ??C (98.1 ??F) 09/29/2021 4:56 PM EDT Respiratory Rate 19 09/29/2021 4:56 PM EDT Oxygen Saturation 96% 09/29/2021 4:56 PM EDT Inhaled Oxygen Concentration - - Weight 113.3 kg (249 lb 12.5 oz) 09/29/2021 4:13 AM EDT Height 170.2 cm (5' 7) 09/27/2021 11:25 AM EDT Body Mass Index 39.6 09/27/2021 11:25 AM EDT documented in this encounter Discharge Summaries Leilani Be PA - 10/03/2021 3:24 PM EDT Inpatient - Discharge Summary Patient Name: Richy Street Patient Age: 76 y.o. Birthdate: 1945 Language: Chinese Race: White Ethnicity: Not nor Admit Date: [...] below for details) Inpatient Provider Contact Information: [facility] Section of Cardiac Surgery [facility] [address] FAX [phone] Discharge Diagnoses (Hospital Problems) Primary Diagnoses: CAD Secondary Diagnoses: LLE Ischemia s/p urgent left SFA embolectomy Chronic AF Active Hospital Problems Diagnosis ??? Coronary artery disease involving ivanof bay heart with unstable angina pectoris, unspecified vesselor [...] PCI performed by Vinod Hassan MD at [facility] CATH LABS ??? PRO CABG, ARTERIAL, SINGLE N/A 09/27/2021 @CABG, USING ARTERIAL GRAFT;SINGLE ARTERIAL GRAFT (WRVU 33.75) performed by Abdon Arreguin MD at [facility] MAIN OR ??? PRO CABG, ARTERY-VEIN, THREE N/A 09/27/2021 @CABG; 3 VENOUS GRAFTS & ARTERIAL GRAFT (WRVU 10.49) performed by Abdon Arreguin MD at [facility] MAIN OR ??? PRO EMBLC/THRMBC FEMORAL POPLITEAL AORTO-ILIAC ARTERY Left 09/29/2021 EMBOLECTOMY OR THROMBECTOMY, FEMOROPOPLITEAL, AORTOILIAC ARTERY BY LEG INCISION (WRVU 19.48) performed by Joselito Washburn MD at [facility] MAIN OR ??? PRO ENDOSCOPY W/VIDEO-ASST VEIN HARVEST, CABG N/A 09/27/2021 ENDOSCOPIC HARVEST VEIN(S) FOR CABG (WRVU 0.31) performed by Abdon Arreguin MD at [facility] MAIN OR Prior To Admission Medications Medications [...] (NASACORT or NASACORT OTC) 55 mcg Aerosol, [place] 1 spray by Nasal route daily. 55 [...] CABGx4 Rich[address] was admitted to [facility] on 09/27/2021 via the Same Day [...] for ongoing outpatient anticoagulation management: ??? Provider/Team/Clinic: Jesusita Law MD ? 7. If you have [...] not take or discontinue any prescription or omrq-pmh-cehqxqz medications without asking your doctor or pharmacist [...] Abdon Arreguin and/or the Cardiac Surgery Physician Veneer Sander Team may be reached at . Weight: [...] Dr. Abdon Arreguin. You may use a [facility] Track or treadmill but avoid any pulling [...] friends, go to a movie, go to pentecostalism, etc. Heavy activities: No hunting, skiing, jogging, snow shoveling, snowmobiling, lawn mowing, swimming, golf or tennis until after your return appointment with the surgeon. Do not ride motorcycles, Monitor's tractors or horses. Avoid the use of [...] should resume a low fat, low cholesterol, [place] Heart [employer] Diet. Driving: No driving until [...] while being managed by your PCP and/or Cath Lab Nurse. For future medication refills, please refer to your PCP and/or Cath Lab Nurse after your discharge from our service. Thank [...] the outpatient Phase 2 Cardiac Rehabilitation at [facility]. The patient agrees to a referral to this program. The referral will be sent at discharge and the patient should be contacted by the Program within 1- 2 weeks from discharge. Future Appointments and Orders Future Appointments and Orders Future Appointments Provider Department Dept Phone 10/22/2021 1:45 PM [facility] DX ROOM 1 XRay at [facility] Arrive at: [facility] [phone] Please go to [facility] ([place] Location). 10/22/2021 2:30 PM Abdon Arreguin MD Cardiac Surgery at [facility] Arrive at: [facility] [phone] 11/05/2021 9:45 AM [facility] DX ED ROOM 1 XRay at [facility] Arrive at: [facility] [phone] Please go to [facility] ([place] Location). 11/05/2021 10:40 AM Abdon Arreguin MD Cardiac Surgery at [facility] Arrive at: [facility] [phone] Future Orders Complete By Expires TONEY, legs, multiple levels [VAS8 Custom] 10/08/2021 (Approximate) 11/01/2021 Process Instructions: There is no in-house vascular senior laboratory technician available on weeknights (5pm-8am), weekends, or holidays. IF THIS IS A REQUEST FOR AN EMERGENT STUDY DURING THOSE HOURS, please have the senior provider responsible for the patient page the Vascular Surgery Fellow/Senior Resident suction roller to discuss options. Scheduling Instructions: Questions: Indication for study/signs & symptoms: s/p LLE embolectomy Question to be answered: ?perfusion Preferred location?: [facility] Clinics Referral to Cardiac Rehab [[id number] Custom] As directed Process Instructions: If no progress note charted, please enter Clinical details in comments. Scheduling Instructions: Questions: My question or request is: CABG- cardiac rehab at [facility] Referral to Home Health [REF34 Custom] As directed Process Instructions: If no progress note charted, please enter Clinical details in comments. Scheduling Instructions: Comments: Please evaluate Richy Street for admission to Home Health. [address] [facility] [facility] [address] [facility] [address] (home) Date of : 1945 DOCUMENTATION FOR VNA SERVICES (INCLUDING THOSE PATIENTS WITH MEDICARE COVERAGE REQUIRING HOME VNA SERVICES AND/OR HOSPICE SERVICES) PATIENT'S LOCATION: Richy [address] [facility] [address] (home) No relevant phone numbers on file. Oncology Technician's Name: Self In discussion with the attending physician, it is certified that this patient is under their care and that they, or a Nurse Practitioner, or Physician Veneer Sander who is working directly with them, had [...] AGENCY: [facility] in [place], [place] and [phone] RN orders: Cardiopulmonary assessment, incisional assessment, assess [...] issues please call the Cardiology Office at [phone] FOR MEDICARE ONLY: In discussion with the [...] OR AFTER 10/07/21 Signed: Leilani Be PA-C [facility] Section of Cardiac Surgery [facility] [address] FAX [phone] Date: 10/03/2021 CC: Jesusita Law MD Unknown [...] not take or discontinue any prescription or gnod-vfu-gplnxyo medications without asking your doctor or pharmacist [...] Abdon Arreguin and/or the Cardiac Surgery Physician Veneer Sander Team may be reached at . Weight: [...] Dr. Abdon Arreguin. You may use a [facility] Track or treadmill but avoid any pulling [...] friends, go to a movie, go to pentecostalism, etc. Heavy activities: No hunting, skiing, jogging, snow shoveling, snowmobiling, lawn mowing, swimming, golf or tennis until after your return appointment with the surgeon. Do not ride motorcycles, Monitor's tractors or horses. Avoid the use of [...] should resume a low fat, low cholesterol, [place] Heart Association Diet. Driving: No driving until [...] while being managed by your PCP and/or Cath Lab Nurse. For future medication refills, please refer to your PCP and/or Cath Lab Nurse after your discharge from our service. Thank [...] OTC) 55 mcg Aerosol, spray into both [place] nostrils once a day as needed for [...] Treatment Number PT: 2 Patient profile: Richy Street??is a 76 y.o.??male??with PMH of CAD with [...] in recliner post-d/c 3. Pt. to perform qpj-ck-nxlla transfers with modified independence using a front [...] plan as stated. Time IN / OUT: 6494-6016 Total Minutes, Physical Therapy: 36 Fely Mejias PT , DPT Pager: [phone] Physical Therapy Inpatient Rehabilitation Department Leilani Be [...] ??? PACEMAKER IMPLANT ? ? PRG CATH [facility] LEFT HEART CATH & ARTS W/INJ & ANGIO IMG S&I N/A 09/10/2021 CORONARY ANGIOGRAPHY; W C,POSSIBLE PCI performed by Vinod Hassan MD at [facility] CATH LABS ??? PRO CABG, ARTERIAL, SINGLE N/A 09/27/2021 @CABG, USING ARTERIAL GRAFT;SINGLE ARTERIAL GRAFT (WRVU 33.75) performed by Abdon Arreguin MD at [facility] MAIN OR ??? PRO CABG, ARTERY-VEIN, THREE N/A 09/27/2021 @CABG; 3 VENOUS GRAFTS & ARTERIAL GRAFT (WRVU 10.49) performed by Abdon Arreguin MD at [facility] MAIN OR ??? PRO EMBLC/THRMBC FEMORAL POPLITEAL AORTO-ILIAC ARTERY Left 09/29/2021 EMBOLECTOMY OR THROMBECTOMY, FEMOROPOPLITEAL, AORTOILIAC ARTERY BY LEG INCISION (WRVU 19.48) performed by Joselito Washburn MD at [facility] MAIN OR ??? 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 WNL/WFL ?? corrective lenses multimedia authoring specialist Communication: WFL Range of motion, strength, [...] Occupational Therapy: 40 (1 low complexity eval (2548-4701)) OT Evaluation Code Rationale: ?? Diagnosis & [...] and measurable assessment of functional outcome. Pager: [phone] Arlene Simms OT 10/02/2021 Occupational Therapy Rehabilitation [...] ??? PACEMAKER IMPLANT ? ? PRG CATH [facility] LEFT HEART CATH & ARTS W/INJ & ANGIO IMG S&I N/A 09/10/2021 CORONARY ANGIOGRAPHY; W LHC,POSSIBLE PCI performed by Vinod Hassan MD at [facility] CATH LABS ??? PRO CABG, ARTERIAL, SINGLE N/A 09/27/2021 @CABG, USING ARTERIAL GRAFT;SINGLE ARTERIAL GRAFT (WRVU 33.75) performed by Abdon Arreguin MD at [facility] MAIN OR ??? PRO CABG, ARTERY-VEIN, THREE N/A 09/27/2021 @CABG; 3 VENOUS GRAFTS & ARTERIAL GRAFT (WRVU 10.49) performed by Abdon Arreguin MD at [facility] MAIN OR ??? PRO EMBLC/THRMBC FEMORAL POPLITEAL AORTO-ILIAC ARTERY Left 09/29/2021 EMBOLECTOMY OR THROMBECTOMY, FEMOROPOPLITEAL, AORTOILIAC ARTERY BY LEG INCISION (WRVU 19.48) performed by Joselito Washburn MD at [facility] MAIN OR ??? PRO ENDOSCOPY W/VIDEO-ASST VEIN HARVEST, CABG N/A 09/27/2021 ENDOSCOPIC HARVEST VEIN(S) FOR CABG (WRVU 0.31) performed by Abdon Arreguin MD at [facility] MAIN OR Active Non-Hospital Problems Diagnosis ??? [...] standing without exhibiting loss ofbalance & no qnffjn-fu-kurzays observed during gait Therapeutic Exercise: 6 repetitions [...] mobilization & ambulation with nursing & mobility ict help desk technician staff. Discharge Recommendations: Based on the [...] to sternal precautions 3. Pt. to perform ngr-xf-unuxj transfers with modified independence using a front [...] in this evaluation. Time IN / OUT: 4849-1304 Total Minutes, Physical Therapy: 40 Fely Mejias DPT Pager: [phone] Physical Therapy Inpatient Rehabilitation Department Sam Kate PA - 10/01/2021 11:46 AM EDT Cardiac [...] Ext: warm, 1-2+ LE edema. +signals Incisions: KRISTIN CDI Tubes/Lines/Drains: PIV I/O last 3 completed [...] where referrals are placed. Provided patient with [facility] Star Quality Rating for Home care Patient requests referral to : [facility] [place] [address] and Expected date of discharge: 10/04/2021. Referral routed to the Welding Lead Burner for matching with agency/vendor and to provide [...] PT - 09/30/2021 4:34 PM EDT 09/30/21 4184 Evaluation & Treatment Document Type contact Total [...] PIV I/O last 3 completed shifts: In: 0.2 [P.O.:965; I.V.:1095.2] Out: 3177 [Urine:2825; Blood:352] A&P [...] completed shifts: In: 2875.2 [P.O.:2145; I.V.:730.2] Out: 2017 [Urine:1665; Drains:27; Other:325] Net +1.4L A&P 74 [...] on AM rounds BEN To 09/28/2021 Cherrie Dunn, GREIGE MENDER - 09/27/2021 8:36 PM EDT Protocol: CTICU [...] manage pt in CTICU protocol. Respiratory Pager# [phone] documented in this encounter H&P Notes Abdon [...] List Diagnosis ??? Coronary artery disease involving ivanof bay heart with unstable angina pectoris, unspecified vesselor [...] PCI performed by Vinod Hassan MD at [facility] CATH LABS Family History: History reviewed. No [...] 09/27/2021 11:43 AM EDT Cardiothoracic Surgery Consultation Rcihy Street is seen at the request of Dr. Santana for the evaluation of CAD. HPI: Richy Street is a 76 y.o. year old male with increasing angina with minimal effort. Problem List: Patient Active Problem List Diagnosis ??? Coronary artery disease involving ivanof bay heart with unstable angina pectoris, unspecified vesselor [...] ??? PACEMAKER IMPLANT ? ? PRG CATH [facility] LEFT HEART CATH & ARTS W/INJ & ANGIO IMG S&I N/A 09/10/2021 CORONARY ANGIOGRAPHY; W [facility],POSSIBLE PCI performed by Vinod Hassan MD at [facility] CATH LABS Family History: History reviewed. No [...] & Follow-up Care: Contact information for follow-up [address] [address] Transportation: family or friend will provide Functional [...] Type: *No Product type* / Secondary Insurance: [employer] Prescription Coverage: Yes This plan was formulated with input from patient and team. All are in agreement with plan. I have verbally reviewed Medicare Discharge Rights with patient. Patient verbalizes understanding ofright to appeal this discharge if feeling not medically ready. Offered a copy of this letter. Stacey GAMEZ RN Phone: [phone] Pager: [phone] Consult Note - Krista Godoy RN - 10/02/2021 11:04 AM EDT [facility] CARDIAC REHABILITATION Richy Street was seen today regarding participation in the outpatient Phase 2 Cardiac Rehabilitation at [facility]. The patient agrees to a referral to [...] [facility] [place], [place] and [phone] Transportation: Family Barriers to discharge: None Plan going forward: Care Management will continue to follow and assist with discharge planning and coordination of care as indicated. Anticipated Date of Discharge: 10/06/2021 Office of Care Management Surgery Team Apparel Manager [email or web address] Pager #[phone] Consult Note - Sheila Thakkar MD - 10/01/2021 10:13 PM EDT [facility] Department of Surgery Inpatient Consult Note [...] Thakkar MD - 09/30/2021 12:59 PM EDT [facility] Department of Surgery Inpatient Consult Note [...] Operative Note Patient Name: Richy Street : [id number] MR#: [id number] Case Date: 09/29/2021 Surgeon: Surgeon(s) and Role: [...] Loss: 352 mL Specimens removed during surgery: [facility] Fluids: Intraprocedure Crystalloid Total Intake Lactated [...] Washburn MD - 09/29/2021 1:35 PM EDT [facility] Operative Note Patient Name: Richy Street : [id number] MR#: [id number] Case Date: 09/29/2021 Surgeon: Surgeon(s) and Role: [...] with vessel loops. The patient was given 12131 units of intravenous heparin, which was allowed [...] Gaspar MD - 09/29/2021 11:07 AM EDT [facility] Department of Surgery Inpatient Consult Note [...] ??? PACEMAKER IMPLANT ? ? PRG CATH [facility] LEFT HEART CATH & ARTS W/INJ & ANGIO IMG S&I N/A 09/10/2021 CORONARY ANGIOGRAPHY; W LHC,POSSIBLE PCI performed by Vinod Hassan MD at [facility] CATH LABS ??? PRO CABG, ARTERIAL, SINGLE N/A 09/27/2021 @CABG, USING ARTERIAL GRAFT;SINGLE ARTERIAL GRAFT (WRVU 33.75) performed by Abdon Arreguin MD at [facility] MAIN OR ??? PRO CABG, ARTERY-VEIN, THREE N/A 09/27/2021 @CABG; 3 VENOUS GRAFTS & ARTERIAL GRAFT (WRVU 10.49) performed by Abdon Arreguin MD at [facility] OR ??? PRO ENDOSCOPY W/VIDEO-ASST VEIN HARVEST, CABG N/A 09/27/2021 ENDOSCOPIC HARVEST VEIN(S) FOR CABG (WRVU 0.31) performed by Abdon Arreguin MD at [facility] MAIN OR Medications No current facility-administered medications [...] (NASACORT or NASACORT OTC) 55 mcg Aerosol, [place] 1 spray by Nasal route daily. 55 [...] If you have any questions, please page [phone] (day/week) [phone] (night/weekend). [x] Consult service to continue to follow [] Consult service to sign off Ioana Gaspar MD 09/29/2021 Vascular Surgery Initial Assessments - [...] surrogate would be surrogate decision maker per [place] surrogate decision making law. (Only good for 180 days) Any patient receiving care in [place] must abide by [place] law. The hierarchy for surrogate decision making [...] (i) The agent with financial power of commercial real estate attorney or a conservator appointed in accordance with [...] none Current DME: none Home Address as: [address] [place] [phone] Social & Family Supports: All names listed below confirmed with patient as current and correct Extended Emergency Contact Information Primary Emergency Contact: Vy Street Address: [address] [place] [phone] [facility] Relation: Spouse Current Care Provided by: [...] Health/Prescription Coverage: Primary Insurance: MEDICARE Secondary Insurance: [employer] [facility] Secondary Insurance? (Only Medicare A&B): Yes ; Prescription Coverage: Yes [facility] Status: Patient is a : No Primary Care Provider: Jesusita Law MD [phone] Patient/Caregiver Goals of Treatment: Potential Needs for [...] - 09/27/2021 1:49 PM EDT 09/29/2021 Richy Garcia Yenifer 1945 [id number] Preoperative Diagnosis: Coronary artery disease Unstable Angina Postoperative Diagnosis: Coronary artery diseaseUnstable Angina Procedure: CABG times 4: SOTO to LAD, SVG to diag and om, svg to rca. Endoscopic vein harvest Surgeon: Abdon Arreguin M.D. Veneer Sander: Mateo thornton Anesthesia: General endotracheal anesthesia Drains: [...] applied. The patient was transported to the CV on levo. All counts were correct. OR Attestation - Abdon Arreguin MD - 09/27/2021 10:16 AM EDT Attestation: Case Date: 09/27/2021 - 09/28/2021 I performed this procedure without the involvement of a resident. Abdon Arreguin MD 09/29/2021 Brief Op Note - Abdon Arrgeuin MD - 09/27/2021 10:09 AM EDT Brief Operative Note Patient Name: Richy Street : [id number] MR#: [id number] Case Date: 09/27/2021 - 09/28/2021 Surgeon: Surgeon(s) and Role: * Abdon Arreguin MD - Primary * Sam Kate PA - Physician Veneer Sander * Davie Galindo PA - Physician Veneer Sander Preoperative diagnosis: cad Postoperative diagnosis: CAD Procedure(s) [...] Office Visit Cardiac Surgery Abdon Arreguin MD [facility] CARDIOTHORACIC [place], [place] 0[address] (Wo rk) Scheduled Referrals Name [...] disease involving p rocedure are in OR ivanof bay heart with the result s unstable angina section. pectoris, unspecified vessel or lesion type PREPARE RBC STAT 09/27/2021 12:05 Results for this PM EDT procedure are i n the results section. POCT GLUCOSE Routine 09/27/2021 11:37 Results for this AM EDT procedure are i n the results section. ENDOSCOPIC HARVEST Routine 09/27/2021 10:15 Coronary artery VEIN(S) FOR CABG AM EDT disease involving ivanof bay heart with unstable angina pectoris, unspecified vessel or lesion type @CABG,USING ARTERIAL Routine 09/27/2021 10:15 Coronary artery GRAFT;SINGLE ARTERIAL AM EDT disease involving GRAFT ivanof bay heart with unstable angina pectoris, unspecified vessel or lesion type @CABG;3 VENOUS GRAFTS & Routine 09/27/2021 10:15 Coronary meghan ry ARTERIAL GRAFT AM EDT disease involving ivanof bay heart with unstable angina pectoris, unspecified vessel or lesion type LAB SCAN 09/27/2021 12:00 Results for this AM EDT procedure are i n the results section. documented in this encounter Results TONEY, legs, multiple levels (10/22/2021 10:44 AM EDT) Component Value Ref Test Analysis Performed At [facility] Range Method Time Signature VB Text Department: Vascular Surgery Lab VASCUBASE Report Patient: [id number] ([address] STRE[address]) CPT: 51230 Referring Physician: ABDON ARREGUIN ?? Indications: S/p LLE embolectomy, ? perfusion Diabetes mellitus: Yes Findings: Right ?Pressure (mm Hg) ?? TONEY ??Waveform ?TBI ?? Brachial Artery ?137 ? Common Femoral Artery ?Triphasic ? Popliteal Artery ? Triphasic ? Dorsalis Pedis (Ankle) Arter y ?176 ? 1.28 ??Triphasic ? Posterior Tibial (Ankle) Art chen ??153 ? 1.12 ??Triphasic ? Great Toe ?124 ?0.91 ?? Left ? Pressure (mm Hg) ?? TONEY ??Waveform ?TBI ?? Brachial Artery ?133 ? Common Femoral Artery ?Triphasic ? Popliteal Artery ? Triphasic ? Dorsalis Pedis (Ankle) Arter y ?>254 ?Triphasic ? Posterior Tibial (Ankle) Art chen ??157 ? 1.15 ??Triphasic ? Great Toe [...] Signature POC Glucose 114 65 - 199 [facility]dL [facility] Comment: Supplemental ranges: <140 mg/dL before meals <180 mg/dL all other times of the day Specimen Anatomical Collection Method Collection Time Receive d Time (Source) Location / / Volume Laterality Blood 10/03/2021 11:35 10/03/2021 AM EDT 11:35 AM EDT Abdon Arreguin MD POINT OF CARE TEST ORDERABLE S Performing Organization Address City/State/[place] [address] POCT Glucose (10/03/2021 7:23 AM EDT) athologist Signature POC Glucose 122 65 - 199 [facility] mg/dL [facility] Comment: Supplemental ranges: <140 mg/dL before meals <180 mg/dL all other times of the day Specimen Anatomical Collection Method Collection Time Receive d Time (Source) Location / / Volume Laterality Blood 10/03/2021 7:23 AM 2 7:23 EDT AM EDT Abdon Arreguin MD POINT OF CARE TEST ORDERABLE S Performing Organization Address City/[facility]/[place] [address] Heparin (unfractionated) Level (10/03/2021 4:26 AM EDT) athologist Signature Heparin UFH 0.27 IU/mL [facility] LABORATORY Comment: Heparin (anti-Xa) levels should be [...] Arreguin MD HEMATOLOGY ORDERABLES Performing Organization Address City/[facility]/[place] [address] (ABNORMAL) Differential, Automated (10/03/2021 4:26 AM EDT) [facility] gist Method Time Signature Neutrophils % 63.0 % [facility] Neutr Abs (ANC) 6.33 (H) 1.70 - [facility] 6.10 [facility] x10(3)/[facility] L LABORATORY Lymphocytes % 18.6 % [facility] Lymphocytes Abs 1.9 0.9 - 3.2 [facility] x10(3)/[facility] LABORATORY Monocytes % 11.3 % [facility] Monocyte Abs 1.1 (H) 0.3 - 0.9 [facility] x10(3)/[facility] LABORATORY Eosinophils % 5.9 % [facility] Eosinophils Abs 0.6 (H) 0.0 - 0.4 [facility] x10(3)/[facility] LABORATORY Basophils % 0.5 % [facility] Basophils Abs 0.0 0.0 - 0.1 [facility] x10(3)/[facility] LABORATORY Immature Gran % 0.70 % [facility] Comment: Immature granulocytes(IG's)percentage an d absolute count will include metamyelocytes, myelocytes, and promyelo cytes. Blood smears from CBCs yielding IG's will be scanned manually for concor dance. If this scan disagrees with the automated IG or if promyelocytes are not ed, a manual differential will be performed. Anna Gran Abs 0.07 (H) 0.00 - 0.04 x10(3)/[facility] LABORATORY Specimen Anatomical Collection Method Collection Time Receive d Time (Source) Location / / Volume Laterality Blood 10/03/2021 4:26 AM 4:41 EDT AM EDT Resulting Agency Comment Spec In Lab Leilani CONTRERAS HEMATOLOGY ORDERABLES Performing Organization Address City/State/[place] [address] (ABNORMAL) Hemogram (10/03/2021 4:26 AM EDT) Analysis Performed At Patho logist Time Signature WBC 10.0 (H) 4.0 - 9.5 [facility] x10(3)/[facility] LABORATORY RBC 3.35 (L) 4.58 - [facility] 5.54 [facility] x10(6)/[facility] LABORATORY Hemoglobin 9.8 (L) 13.7 - [facility] 16.5 g/dL [facility] Hematocrit 29.4 (L) 40.5 - [facility] 48.5 % [facility] MCV 87.8 82.9 - [facility] AUDREY 93.1 [facility] LABORATORY MCH 29.3 27.5 - [facility] VENTURA 32.1 pg [facility] MCHC 33.3 32.0 - [facility] 35.7 g/dL [facility] Platelets 238 145 - 357 [facility] x10(3)/[facility] LABORATORY RDWSD 46.2 (H) 36.0 - [facility]UD[facility] 45.0 [facility] LABORATORY RDWCV 14.4 (H) 11.4 - [facility] AUDREY 13.8 % [facility] MPV 11.0 7.6 - 12.9 [facility] LABORATORY nRBC % Auto 0.0 % [facility] nRBC Abs Auto 0.000 0.000 - [place] AUDRE[facility] 0.000 [facility] x10(3)/[facility] LABORATORY Specimen Anatomical Collection Method Collection Time Receive d Time (Source) Location / / Volume Laterality Blood 10/03/2021 4:26 AM 2 4:41 EDT AM EDT Resulting Agency Comment Spec In Lab eLilani CONTRERAS HEMATOLOGY ORDERABLES Performing Organization Address City/State/[place] [address] (ABNORMAL) Prothrombin Time (10/03/2021 4:26 AM EDT) P athologist Signature PT 13.7 (H) 9.4 - 12.5 [facility] LABORATORY INR 1.2 [facility] Comment: An INR <2.0 [...] Arreguin MD HEMATOLOGY ORDERABLES Performing Organization Address City/[facility]/[place] [address] Potassium (10/03/2021 4:26 AM EDT) athologist Signature Potassium 4.1 3.5 - 5.0 [facility]/L [facility] Comment: Please note: ??Patients [...] Arreguin MD CHEMISTRY ORDERABLES Performing Organization Address City/[facility]/[place] [address] POCT Glucose (10/02/2021 8:15 PM EDT) athologist Signature POC Glucose 151 65 - 199 [facility] mg/dL [facility] Comment: Supplemental ranges: <140 mg/dL before meals <180 mg/dL all other times of the day Specimen Anatomical Collection Method Collection Time Receive d Time (Source) Location / / Volume Laterality Blood 10/02/2021 8:15 PM 2 8:15 EDT PM EDT Abdon Arreguin MD POINT OF CARE TEST ORDERABLE S Performing Organization Address City/[facility]/[place] [address] POCT Glucose (10/02/2021 4:14 PM EDT) athologist Signature POC Glucose 140 65 - 199 [facility] mg/dL [facility] Comment: Supplemental ranges: <140 mg/dL before meals <180 mg/dL all other times of the day Specimen Anatomical Collection Method Collection Time Receive d Time (Source) Location / / Volume Laterality Blood 10/02/2021 4:14 PM 2 4:14 EDT PM EDT Abdon Arreguin MD POINT OF CARE TEST ORDERABLE S Performing Organization Address City/[facility]/[place] [address] Potassium (10/02/2021 2:28 PM EDT) athologist Signature Potassium 4.2 3.5 - 5.0 [facility] mmol/L [facility] Comment: Please note: ??Patients [...] Arreguin MD CHEMISTRY ORDERABLES Performing Organization Address City/[facility]/[place] [address] POCT Glucose (10/02/2021 10:55 AM EDT) athologist Signature POC Glucose 153 65 - 199 [facility] mg/dL [facility] Comment: Supplemental ranges: <140 mg/dL before meals <180 mg/dL all other times of the day Specimen Anatomical Collection Method Collection Time Receive d Time (Source) Location / / Volume Laterality Blood 10/02/2021 10:55 10/02/2021 AM EDT 10:55 AM EDT Abdon Arreguin MD POINT OF CARE TEST ORDERABLE S Performing Organization Address City/[facility]/[place] [address] POCT Glucose (10/02/2021 7:33 AM EDT) athologist Signature POC Glucose 143 65 - 199 [facility] mg/dL [facility] Comment: Supplemental ranges: <140 mg/dL before meals <180 mg/dL all other times of the day Specimen Anatomical Collection Method Collection Time Receive d Time (Source) Location / / Volume Laterality Blood 10/02/2021 7:33 AM 2 7:33 EDT AM EDT Abdon Arreguin MD POINT OF CARE TEST ORDERABLE S Performing Organization Address City/[facility]/[place] [address] Heparin (unfractionated) Level (10/02/2021 3:59 AM EDT) athologist Signature Heparin UFH 0.24 IU/mL [facility] LABORATORY Comment: Heparin (anti-Xa) levels should be [...] Arreguin MD HEMATOLOGY ORDERABLES Performing Organization Address City/[facility]/[place] [address] (ABNORMAL) Differential, Automated (10/02/2021 3:59 AM EDT) [facility] gist Method Time Signature Neutrophils % 62.1 % [facility] Neutr Abs (ANC) 6.87 (H) 1.70 - [facility] 6.10 [facility] x10(3)/[facility] L LABORATORY Lymphocytes % 18.4 % [facility] Lymphocytes Abs 2.0 0.9 - 3.2 [facility] x10(3)/[facility] LABORATORY Monocytes % 12.9 % [facility] Monocyte Abs 1.4 (H) 0.3 - 0.9 [facility] x10(3)/[facility] LABORATORY Eosinophils % 5.1 % [facility] Eosinophils Abs 0.6 (H) 0.0 - 0.4 [facility] x10(3)/[facility] LABORATORY Basophils % 0.9 % [facility] Basophils Abs 0.1 0.0 - 0.1 [facility] x10(3)/[facility] LABORATORY Immature Gran % 0.60 % [facility] Comment: Immature granulocytes(IG's)percentage an d absolute count will include metamyelocytes, myelocytes, and promyelo cytes. Blood smears from CBCs yielding IG's will be scanned manually for concor dance. If this scan disagrees with the automated IG or if promyelocytes are not ed, a manual differential will be performed. Anna Gran Abs 0.07 (H) 0.00 - 0.04 x10(3)/[facility] LABORATORY Specimen Anatomical Collection Method Collection Time Receive d Time (Source) Location / / Volume Laterality Blood 10/02/2021 3:59 AM 4:25 EDT AM EDT Resulting Agency Comment Spec In Lab Leilani CONTRERAS HEMATOLOGY ORDERABLES Performing Organization Address City/State/[place] [address] (ABNORMAL) Hemogram (10/02/2021 3:59 AM EDT) Analysis Performed At Patho logist Time Signature WBC 11.1 (H) 4.0 - 9.5 [facility] x10(3)/[facility] LABORATORY RBC 3.62 (L) 4.58 - [facility] 5.54 [facility] x10(6)/[facility] LABORATORY Hemoglobin 10.3 (L) 13.7 - [facility] 16.5 g/dL [facility] LABORATORY Hematocrit 31.7 (L) 40.5 - [facility] 48.5 % [facility] LABORATORY MCV 87.6 82.9 - [facility]UDRE[facility] 93.1 [facility] LABORATORY MCH 28.5 27.5 - [facility] V[facility]URA 32.1 pg [facility] LABORATORY MCHC 32.5 32.0 - [facility] VENTURA 35.7 g/dL [facility] Platelets 190 145 - 357 [facility] x10(3)/[facility] LABORATORY RDWSD 45.9 (H) 36.0 - [facility] AUDRE[facility] 45.0 [facility] LABORATORY RDWCV 14.4 (H) 11.4 - [facility] 13.8 % [facility] LABORATORY MPV 11.1 7.6 - 12.9 [facility] LABORATORY nRBC % Auto 0.0 % [facility] nRBC Abs Auto 0.000 0.000 - [facility] AUDRE[facility] 0.000 [facility] x10(3)/[facility] LABORATORY Specimen Anatomical Collection Method Collection Time Receive d Time (Source) Location / / Volume Laterality Blood 10/02/2021 3:59 AM 2 4:25 EDT AM EDT Resulting Agency Comment Spec In Lab Leilani CONTRERAS HEMATOLOGY ORDERABLES Performing Organization Address City/State/ZIP Code Phon e Number [place] [id number]OSP[address] LAB[address]ORY Drive (ABNORMAL) Prothrombin Time (10/02/2021 3:59 AM EDT) P athologist Signature PT 12.6 (H) 9.4 - 12.5 [facility] LABORATORY INR 1.1 [facility] Comment: An INR <2.0 [...] Arreguin MD HEMATOLOGY ORDERABLES Performing Organization Address City/[facility]/[place] [address] (ABNORMAL) Potassium (10/02/2021 3:59 AM EDT) athologist Signature Potassium 3.4 (L) 3.5 - 5.0 [facility] mmol/L [facility] Comment: Please note: ??Patients [...] Arreguin MD CHEMISTRY ORDERABLES Performing Organization Address City/[facility]/[place] [address] POCT Glucose (10/01/2021 7:43 PM EDT) athologist Signature POC Glucose 152 65 - 199 [facility] mg/dL [facility]ORY Comment: Supplemental ranges: <140 mg/dL before meals <180 mg/dL all other times of the day Specimen Anatomical Collection Method Collection Time Receive d Time (Source) Location / / Volume Laterality Blood 10/01/2021 7:43 PM 2 7:43 EDT PM EDT Abdon Arreguin MD POINT OF CARE TEST ORDERABLE S Performing Organization Address City/[facility]/[place] [address] POCT Glucose (10/01/2021 5:08 PM EDT) athologist Signature POC Glucose 131 65 - 199 [facility] mg/dL [facility] Comment: Supplemental ranges: <140 mg/dL before meals <180 mg/dL all other times of the day Specimen Anatomical Collection Method Collection Time Receive d Time (Source) Location / / Volume Laterality Blood 10/01/2021 5:08 PM 2 5:08 EDT PM EDT Abdon Arreguin MD POINT OF CARE TEST ORDERABLE S Performing Organization Address City/[facility]/[place] [address] POCT Glucose (10/01/2021 11:49 AM EDT) athologist Signature POC Glucose 196 65 - 199 [facility] mg/dL [facility]ORY Comment: Supplemental ranges: <140 mg/dL before meals <180 mg/dL all other times of the day Specimen Anatomical Collection Method Collection Time Receive d Time (Source) Location / / Volume Laterality Blood 10/01/2021 11:49 10/01/2021 AM EDT 11:49 AM EDT Abdon Arreguin MD POINT OF CARE TEST ORDERABLE S Performing Organization Address City/[facility]/[place] [address] POCT Glucose (10/01/2021 7:54 AM EDT) athologist Signature POC Glucose 159 65 - 199 [facility] mg/dL [facility]ORY Comment: Supplemental ranges: <140 mg/dL before meals <180 mg/dL all other times of the day Specimen Anatomical Collection Method Collection Time Receive d Time (Source) Location / / Volume Laterality Blood 10/01/2021 7:54 AM 2 7:54 EDT AM EDT Abdon Arreguin MD POINT OF CARE TEST ORDERABLE S Performing Organization Address City/[facility]/[place] [address] Heparin (unfractionated) Level (10/01/2021 3:25 AM EDT) athologist Signature Heparin UFH 0.22 IU/mL [facility] LABORATORY Comment: Heparin (anti-Xa) levels should be [...] Organization Address City/State/[place] [address] (ABNORMAL) Differential, Automated (10/01/2021 3:25 AM EDT) [facility] gist Method Time Signature Neutrophils % 72.5 % [facility] Neutr Abs (ANC) 9.30 (H) 1.70 - [facility] 6.10 [facility] x10(3)/[facility] LABORATORY Lymphocytes % 12.3 % [facility] Lymphocytes Abs 1.6 0.9 - 3.2 [facility] x10(3)/[facility] LABORATORY Monocytes % 11.2 % [facility] Monocyte Abs 1.4 (H) 0.3 - 0.9 [facility] x10(3)/[facility] LABORATORY Eosinophils % 3.0 % [facility] Eosinophils Abs 0.4 0.0 - 0.4 [facility] x10(3)/[facility] LABORATORY Basophils % 0.5 % [facility] Basophils Abs 0.1 0.0 - 0.1 [facility] x10(3)/[facility] LABORATORY Immature Gran % 0.50 % [facility] Comment: Immature granulocytes(IG's)percentage an d absolute count will include metamyelocytes, myelocytes, and promyelo cytes. Blood smears from CBCs yielding IG's will be scanned manually for amado li. If this scan disagrees with the automated IG or if promyelocytes are not ed, a manual differential will be performed. Anna Gran Abs 0.06 (H) 0.00 - 0.04 x10(3)/[facility] LABORATORY Specimen Anatomical Collection Method Collection Time Receive d Time (Source) Location / / Volume Laterality Blood 10/01/2021 3:25 AM 3:57 EDT AM EDT Resulting Agency Comment Spec In Lab Leilani CONTRERAS HEMATOLOGY ORDERABLES Performing Organization Address City/State/[place] [address] (ABNORMAL) Hemogram (10/01/2021 3:25 AM EDT) Analysis Performed At Patho logist Time Signature WBC 12.8 (H) 4.0 - 9.5 [facility] x10(3)/[facility] LABORATORY RBC 3.36 (L) 4.58 - [facility] 5.54 [facility] x10(6)/[facility] LABORATORY Hemoglobin 9.8 (L) 13.7 - [facility] 16.5 g/dL [facility] LABORATORY Hematocrit 29.4 (L) 40.5 - [facility] 48.5 % [facility]ATORY MCV 87.5 82.9 - [facility] 93.1 [facility] LABORATORY MCH 29.2 27.5 - [facility] 32.1 pg [facility] LABORATORY MCHC 33.3 32.0 - [facility] 35.7 g/dL [facility]ORATORY Platelets 170 145 - 357 [facility] x10(3)/[facility] LABORATORY RDWSD 45.3 (H) 36.0 - [facility] 45.0 [facility] LABORATORY RDWCV 14.2 (H) 11.4 - [facility] 13.8 % [facility] LABORATORY MPV 11.2 7.6 - 12.9 [facility] LABORATORY nRBC % Auto 0.0 % [facility] nRBC Abs Auto 0.000 0.000 - [facility] 0.000 [facility] x10(3)/[facility] LABORATORY Specimen Anatomical Collection Method Collection Time Receive d Time (Source) Location / / Volume Laterality Blood 10/01/2021 3:25 AM 2 3:57 EDT AM EDT Resulting Agency Comment Spec In Lab Leilani CONTRERAS HEMATOLOGY ORDERABLES Performing Organization Address [facility]/ZIP [facility] [place] [place] [address] Prothrombin Time (10/01/2021 3:25 AM EDT) athologist Signature PT 12.4 9.4 - 12.5 [facility] LABORATORY INR 1.1 [facility] Comment: An INR <2.0 [...] Arreguin MD HEMATOLOGY ORDERABLES Performing Organization Address [facility]/[place] [address] (ABNORMAL) Potassium (10/01/2021 3:25 AM EDT) P athologist Signature Potassium 3.4 (L) 3.5 - 5.0 [facility] mmol/L [facility] LABORATORY Comment: Please note: ??Patients [...] Organization Address City/State/[place] [address] Heparin (unfractionated) Level (09/30/2021 8:23 PM EDT) athologist Signature Heparin UFH 0.24 IU/mL [facility] LABORATORY Comment: Heparin (anti-Xa) levels should be [...] Arreguin MD HEMATOLOGY ORDERABLES Performing Organization Address City/[facility]/[place] [address] POCT Glucose (09/30/2021 7:42 PM EDT) athologist Signature POC Glucose 188 65 - 199 [facility] mg/dL [facility] LABORATORY Comment: Supplemental ranges: <140 mg/dL before meals <180 mg/dL all other times of the day Specimen Anatomical Collection Method Collection Time Receive d Time (Source) Location / / Volume Laterality Blood 09/30/2021 7:42 PM 2 7:42 EDT PM EDT Abdon Arreguin MD POINT OF CARE TEST ORDERABLE S Performing Organization Address City/[facility]/[place] [address] POCT Glucose (09/30/2021 4:22 PM EDT) athologist Signature POC Glucose 164 65 - 199 [facility] mg/dL [facility] LABORATORY Comment: Supplemental ranges: <140 mg/dL before meals <180 mg/dL all other times of the day Specimen Anatomical Collection Method Collection Time Receive d Time (Source) Location / / Volume Laterality Blood 09/30/2021 4:22 PM 2 4:22 EDT PM EDT Abdon Arreguin MD POINT OF CARE TEST ORDERABLE S Performing Organization Address City/State/[place] [address] Heparin (unfractionated) Level (09/30/2021 1:48 PM EDT) athologist Signature Heparin UFH 0.23 IU/mL [facility] LABORATORY Comment: Heparin (anti-Xa) levels should be [...] / Volume Laterality Blood 09/30/2021 1:48 PM 2 2:24 EDT PM EDT Resulting Agency Comment Spec In Lab Abdon Arreguin MD HEMATOLOGY ORDERABLES Performing Organization Address City/State/ZIP Code Phon e Number [address] POCT Glucose (09/30/2021 11:39 AM EDT) athologist Signature POC Glucose 158 65 - 199 [facility] mg/dL [facility] LABORATORY Comment: Supplemental ranges: <140 mg/dL before meals <180 mg/dL all other times of the day Specimen Anatomical Collection Method Collection Time Receive d Time (Source) Location / / Volume Laterality Blood 09/30/2021 11:39 09/30/2021 AM EDT 11:39 AM EDT Abdon Arreguin MD POINT OF CARE TEST ORDERABLE S Performing Organization Address City/State/[place] [address] ECHOCARDIO[address] LMTD W CONTRAST [...] 10:39 AMBP: 128/89 mmHg ? Patient Location: [facility] C450 A : 1945 ? Height: 170 cm ? Account: [id number] Age: 76 yrs ? Weight: 115 kg Gender: Male ?BSA: 2.2 m2 Ordering Physician: KALLIE^ABDON^P Referring Physician: Abdon Arreguin Performed By: Azar Argueta, ACS, [facility] Exam Location: [facility]. Interpretation Summary Patient is in atrial fibrillation during the study. Technically difficult study. LV function is normal with LVEF of 65% w ith beat to beat variability. There is a possible focal apical wall motion abnorm ality. Right ventricular size and function are normal. There is no hemodynamically significant valvular disease present. No prior transthoracic echo for comparis on. Procedure Limited - [id number]. Image enhancement Optis on was used for [...] different from the original. Echocardiogram Report Name: YENIFER RICHY Jose Study Date: 09/10 10:39 AMBP: 128/89 mmHg Patient Location: [address] : 1945 Height: 170 cm Account: [id number] Age: 76 yrs Weight: 115 kg Gender: Male BSA: 2.2 m2 Ordering Physician: KALLIE^ABDON^Murali Referring Physician: Abdon Arreguin Performed By: Azar Argueta [facility], [facility] Exam Location: [facility]. Interpretation Summary Patient is in atrial fibrillation during the study. Technically difficult study. LV function is normal with LVEF of 65% w ith beat to beat variability. There is a possible focal apical wall motion abnorm ality. Right ventricular size and function are normal. There is no hemodynamically significant valvular disease present. No prior transthoracic echo for comparis on. Procedure Limited - [id number]. Image enhancement Optis on was used for [...] who have questions please contact the health primary care coordinator that requested your imaging first. ? Electronically signed by: Marilin Rocha MD , [facility] ([phone]), at 09/30/2021 11:39 AM Narrative 09/30/2021 11:39 [...] ho have questions please contact the health primary care coordinator that requested your imaging first. Electronically signed by: Marilin Rocha MD , [facility] ([phone]), at 09/30/2021 11:39 AM Abdon Arreguin MD IMG DX ORDERABLES Prothrombin Time (09/30/2021 9:12 AM EDT) athologist Signature PT 12.2 9.4 - 12.5 [facility] LABORATORY INR 1.1 [facility]OR[facility]ORY Comment: An INR <2.0 [...] Organization Address City/State/[place] [address] (ABNORMAL) Differential, Automated (09/30/2021 3:25 AM EDT) [facility] gist Method Time Signature Neutrophils % 80.1 % [facility] Neutr Abs (ANC) 11.70 (H) 1.70 - [facility] 6.10 [facility] x10(3)/[facility] LABORATORY Lymphocytes % 9.9 % [facility] Lymphocytes Abs 1.4 0.9 - 3.2 [facility] x10(3)/[facility] LABORATORY Monocytes % 9.5 % [facility]ORY Monocyte Abs 1.4 (H) 0.3 - 0.9 [facility] x10(3[facility] [facility]ORY Eosinophils % 0.0 % [facility] LABORATORY Eosinophils Abs 0.0 0.0 - 0.4 [facility] x10(3)/[facility] LABORATORY Basophils % 0.1 % [facility] LABORATORY Basophils Abs 0.0 0.0 - 0.1 [facility] x10(3)/[facility] LABORATORY Immature Gran % 0.40 % [facility] LABORATORY Comment: Immature granulocytes(IG's)percentage an d absolute count will include metamyelocytes, myelocytes, and promyelo cytes. Blood smears from CBCs yielding IG's will be scanned manually for concor dance. If this scan disagrees with the automated IG or if promyelocytes are not ed, a manual differential will be performed. Anna Gran Abs 0.06 (H) 0.00 - 0.04 x10(3)/[facility] LABORATORY Specimen Anatomical Collection Method Collection Time Receive d Time (Source) Location / / Volume Laterality Blood 09/30/2021 3:25 AM 3:41 EDT AM EDT Resulting Agency Comment Spec In Lab Che Hayden MD HEMATOLOGY ORDERABLES Performing Organization Address City/State/[place] [address] (ABNORMAL) Hemogram (09/30/2021 3:25 AM EDT) Analysis Performed At Patho logist Time Signature WBC 14.6 (H) 4.0 - 9.5 [facility] x10(3)/[facility] LABORATORY RBC 3.65 (L) 4.58 - [facility] 5.54 [facility] x10(6)/[facility] LABORATORY Hemoglobin 10.6 (L) 13.7 - [facility] 16.5 g/dL [facility] LABORATORY Hematocrit 32.5 (L) 40.5 - [facility] 48.5 % [facility] LABORATORY MCV 89.0 82.9 - [facility] 93.1 [facility] LABORATORY MCH 29.0 27.5 - [facility] AUDREY 32.1 pg [facility] LABORATORY MCHC 32.6 32.0 - [facility] 35.7 g/dL [facility] LABORATORY Platelets 143 (L) 145 - 357 [facility] x10(3)/[facility] LABORATORY RDWSD 45.8 (H) 36.0 - [facility] 45.0 [facility] LABORATORY RDWCV 14.1 (H) 11.4 - [facility] 13.8 % [facility] LABORATORY MPV 10.6 7.6 - 12.9 [facility] LABORATORY nRBC % Auto 0.0 % [facility] LABORATORY nRBC Abs Auto 0.000 0.000 - [facility] 0.000 [facility] x10(3)/[facility] LABORATORY Specimen Anatomical Collection Method Collection Time Receive d Time (Source) Location / / Volume Laterality Blood 09/30/2021 3:25 AM 2 3:41 EDT AM EDT Resulting Agency Comment Spec In Lab Che Hayden MD HEMATOLOGY ORDERABLES Performing Organization Address City/State/[place] [address] (ABNORMAL) Basic Metabolic Panel (non-fasting) (09/30/2021 3:25 AM EDT) P athologist Signature Glucose Lvl 142 65 - 199 [facility] mg/dL [facility] LABORATORY Comment: Diabetes: >=200 mg/dL plus symp toms BUN 14 10 - 20 mg/dL [facility] LABORATORY Creatinine 0.71 (L) 0.80 - 1.50 mg/dL [facility] LABORATORY Sodium 138 135 - 145 mmol/L [facility] LABORATORY Potassium 4.0 3.5 - 5.0 mmol/L [facility] LABORATORY Comment: Please note: ??Patients with WBC >100,00 0 may have falsely elevated Potassium levels. ??For accurate Potassium quantif ication in these patients send serum separator tube (gold top) for subsequent determinations. ??Contact the Clinical Chemistry Laboratory if there are any qu estions. Chloride 104 98 - 107 mmol/L [facility] LABORATORY CO2 24 22 - 31 mmol/L [facility] LABORATORY Anion Gap 10 5 - 15 mmol/L [facility] LABORATORY Calcium 8.3 (L) 8.5 - 10.5 mg/dL [facility] LABORATORY Comment: result rechecked-sf Estimated GFR 96 >=60 mL/min/1.73 m?? [facility] LABORATORY Comment: This patient's estimated [...] Organization Address City/State/[place] [address] (ABNORMAL) Differential, Automated (09/29/2021 8:59 PM EDT) [facility] gist Method Time Signature Neutrophils % 89.4 % [facility] LABORATORY Neutr Abs (ANC) 14.75 (H) 1.70 - [facility] 6.10 [facility] x10(3)/[facility] L LABORATORY Lymphocytes % 4.2 % [facility] LABORATORY Lymphocytes Abs 0.7 (L) 0.9 - 3.2 [facility] x10(3)/[facility] LABORATORY Monocytes % 5.6 % [facility] LABORATORY Monocyte Abs 0.9 0.3 - 0.9 [facility] x10(3)/[facility] LABORATORY Eosinophils % 0.1 % [facility] LABORATORY Eosinophils Abs 0.0 0.0 - 0.4 [facility] x10(3)/[facility] LABORATORY Basophils % 0.2 % [facility] LABORATORY Basophils Abs 0.0 0.0 - 0.1 [facility] x10(3)/[facility] LABORATORY Immature Gran % 0.50 % [facility] LABORATORY Comment: Immature granulocytes(IG's)percentage an d absolute count will include metamyelocytes, myelocytes, and promyelo cytes. Blood smears from CBCs yielding IG's will be scanned manually for concor dance. If this scan disagrees with the automated IG or if promyelocytes are not ed, a manual differential will be performed. Anna Gran Abs 0.08 (H) 0.00 - 0.04 x10(3)/[facility] LABORATORY Specimen Anatomical Collection Method Collection Time Receive d Time (Source) Location / / Volume Laterality Blood 09/29/2021 8:59 PM 9:10 EDT PM EDT Resulting Agency Comment Spec In Lab Sam CONTRERAS HEMATOLOGY ORDERABLES Performing Organization Address City/State/[place] [address] (ABNORMAL) Hemogram (09/29/2021 8:59 PM EDT) Analysis Performed At Patho logist Time Signature WBC 16.5 (H) 4.0 - 9.5 [facility] x10(3)/[facility] LABORATORY RBC 3.88 (L) 4.58 - [facility] 5.54 [facility] x10(6)/[facility] LABORATORY Hemoglobin 11.1 (L) 13.7 - [facility] 16.5 g/dL [facility] LABORATORY Hematocrit 33.9 (L) 40.5 - [facility] 48.5 % [facility] LABORATORY MCV 87.4 82.9 - [facility] 93.1 fL [facility] LABORATORY MCH 28.6 27.5 - [facility] 32.1 pg [facility] LABORATORY MCHC 32.7 32.0 - [facility] 35.7 g/dL [facility] LABORATORY Platelets 145 145 - 357 [facility] x10(3)/[facility] LABORATORY RDWSD 45.8 (H) 36.0 - [facility] 45.0 [facility] LABORATORY RDWCV 14.3 (H) 11.4 - [facility] 13.8 % [facility] LABORATORY MPV 11.0 7.6 - 12.9 [facility] LABORATORY nRBC % Auto 0.0 % [facility] LABORATORY nRBC Abs Auto 0.000 0.000 - [facility] 0.000 [facility] x10(3)/[facility] LABORATORY Specimen Anatomical Collection Method Collection Time Receive d Time (Source) Location / / Volume Laterality Blood 09/29/2021 8:59 PM 9:10 EDT PM EDT Resulting Agency Comment Spec In Lab Sam CONTRERAS HEMATOLOGY ORDERABLES Performing Organization Address City/State/[place] [address] (ABNORMAL) BLOOD GAS 2 ARTERIAL (09/29/2021 1:32 PM EDT) Analysis Performed At Patho logist Time Signature pH Art 7.36 7.35 - [facility] 7.45 [facility] LABORATORY pCO2 Art 39 35 - 45 [facility] LABORATORY pO2 Art 209 (H) 85 - 104 [facility] LABORATORY HCO3 Art 21.2 20.0 - [facility] 26.0 [facility] mmol/L [facility] LABORATORY BE Art -4.0 (L) -3.0 - 3.0 [facility] mmol/L [facility] LABORATORY Hgb Blood Gas 11.5 (L) 13.7 - [facility] 16.5 g/dL [facility] LABORATORY O2HB Art 98.5 (H) 94.0 - [facility] 97.0 % [facility] LABORATORY COHB Art 0.4 % [facility] LABORATORY Comment: Nonsmokers: 0.5-1.5% COHB Smokers: Variable, but usually less than 10% Toxic: 20-30% COHB Lethal: Greater than 60% COHB METHB Art 0.3 <=1.5 % [facility] LABORATORY Na Whole Blood 134 (L) 135 - 145 mmol/L [facility] LABORATORY K Whole Blood 3.8 3.5 - 5.0 mmol/L [facility] LABORATORY Comment: Please note: Patients with WBC >100,000 may have falsely elevated Potassium levels. Contact the Clinical Chemistry L aboratory if there are any questions. ICa Whole Blood 1.12 (L) 1.15 - 1.33 mmol/L [facility] LABORATORY Comment: Note: ??Total bilirubin higher than 20 m g/dL may lead to falsely low ionized calcium. CL Whole Blood 104 98 - 107 mmol/L [facility] LABORATORY Gluc Whole Bld 134 65 - 199 mg/dL [facility] LABORATORY Comment: Diabetes: >=200 mg/dL plus symp toms. Lactate WB 1.4 0.5 - 2.2 mmol/L [facility] LABORATORY FIO2 Art 60 % [facility] LABORATORY Flow Art 1.0 LPM [facility] LABORATORY PF Ratio Art 348 [facility] LABORATORY Temp Art 38.2 Celsius [facility] LABORATORY Specimen Anatomical Collection Method Collection Time Receive d Time (Source) Location / / Volume Laterality Blood 09/29/2021 1:32 PM 2 1:32 EDT PM EDT Abdon Arreguin MD CHEMISTRY ORDERABLES Performing Organization Address City/State/ZIP Code Phon e Number [place] [id number] HOSPITAL LABORATORY Drive Arterial Duplex Leg, Unil (09/29/2021 12:08 PM EDT) Component Value Ref Test Analysis Performed At [facility] gist Range Method Time Signature VB Text Department: Vascular Surgery Lab VASCUBASE Report Patient: [id number] ([address]) CPT: 95437 Referring Physician: JOSELITO WASHBURN ?? Phone: Indications: [...] Number VASCUBASE Potassium (09/29/2021 5:51 AM EDT) athologist Signature Potassium 3.9 3.5 - 5.0 [facility] mmol/L [facility] LABORATORY Comment: Please note: ??Patients [...] / Volume Laterality Blood 09/29/2021 5:51 AM 6:00 EDT AM EDT Resulting Agency Comment Spec In Lab Abdon Arreguin MD CHEMISTRY ORDERABLES Performing Organization Address City/State/[place] [address] POCT Glucose (09/28/2021 4:29 PM EDT) athologist Signature POC Glucose 134 65 - 199 [facility] mg/dL [facility] LABORATORY Comment: Supplemental ranges: <140 mg/dL before meals <180 mg/dL all other times of the day Specimen Anatomical Collection Method Collection Time Receive d Time (Source) Location / / Volume Laterality Blood 09/28/2021 4:29 PM 2 4:29 EDT PM EDT Abdon Arreguin MD POINT OF CARE TEST ORDERABLE S Performing Organization Address City/State/[place] [address] POCT Glucose (09/28/2021 12:19 PM EDT) athologist Signature POC Glucose 149 65 - 199 [facility] mg/dL [facility] LABORATORY Comment: Supplemental ranges: <140 mg/dL before meals <180 mg/dL all other times of the day Specimen Anatomical Collection Method Collection Time Receive d Time (Source) Location / / Volume Laterality Blood 09/28/2021 12:19 09/28/2021 PM EDT 12:19 PM EDT Abdon Arreguin MD POINT OF CARE TEST ORDERABLE S Performing Organization Address City/State/[place] [address] POCT Glucose (09/28/2021 10:57 AM EDT) athologist Signature POC Glucose 138 65 - 199 [facility] mg/dL [facility] LABORATORY Comment: Supplemental ranges: <140 mg/dL before meals <180 mg/dL all other times of the day Specimen Anatomical Collection Method Collection Time Receive d Time (Source) Location / / Volume Laterality Blood 09/28/2021 10:57 09/28/2021 AM EDT 10:57 AM EDT Abdon Arreguin MD POINT OF CARE TEST ORDERABLE S Performing Organization Address City/State/ZIP Code Phon e Number [address] POCT Glucose (09/28/2021 9:49 AM EDT) athologist Signature POC Glucose 131 65 - 199 [place] A[place] mg/dL [facility] LABORATORY Comment: Supplemental ranges: <140 mg/dL before meals <180 mg/dL all other times of the day Specimen Anatomical Collection Method Collection Time Receive d Time (Source) Location / / Volume Laterality Blood 09/28/2021 9:49 AM 08/20/202 2 9:49 EDT AM EDT Abdon Arreguin MD POINT OF CARE TEST ORDERABLE S Performing Organization Address City/State/ZIP Code Phon e Number [address] POCT Glucose (09/28/2021 8:16 AM EDT) athologist Signature POC Glucose 144 65 - 199 [facility] AUDREY mg/dL [facility] LABORATORY Comment: Supplemental ranges: <140 mg/dL before meals <180 mg/dL all other times of the day Specimen Anatomical Collection Method Collection Time Receive d Time (Source) Location / / Volume Laterality Blood 09/28/2021 8:16 AM 2 8:16 EDT AM EDT Abdon Arreguin MD POINT OF CARE TEST ORDERABLE S Performing Organization Address City/State/ZIP Code Phon e Number [address] POCT Glucose (09/28/2021 7:00 AM EDT) athologist Signature POC Glucose 144 65 - 199 [facility] mg/dL [facility] LABORATORY Comment: Supplemental ranges: <140 mg/dL before meals <180 mg/dL all other times of the day Specimen Anatomical Collection Method Collection Time Receive d Time (Source) Location / / Volume Laterality Blood 09/28/2021 7:00 AM 2 7:00 EDT AM EDT Abdon Arreguin MD POINT OF CARE TEST ORDERABLE S Performing Organization Address City/State/[place] [address] POCT Glucose (09/28/2021 6:41 AM EDT) athologist Signature POC Glucose 128 65 - 199 [place] AUD[facility] mg/dL [facility] LABORATORY Comment: Supplemental ranges: <140 mg/dL before meals <180 mg/dL all other times of the day Specimen Anatomical Collection Method Collection Time Receive d Time (Source) Location / / Volume Laterality Blood 09/28/2021 6:41 AM 2 6:41 EDT AM EDT Abdon Arreguin MD POINT OF CARE TEST ORDERABLE S Performing Organization Address City/State/ZIP Code Phon e Number [address] POCT Glucose (09/28/2021 5:56 AM EDT) athologist Signature POC Glucose 154 65 - 199 [place] AUDRE[facility] mg/dL [facility] LABORATORY Comment: Supplemental ranges: <140 mg/dL before meals <180 mg/dL all other times of the day Specimen Anatomical Collection Method Collection Time Receive d Time (Source) Location / / Volume Laterality Blood 09/28/2021 5:56 AM 2 5:56 EDT AM EDT Abdon Arreguin MD POINT OF CARE TEST ORDERABLE S Performing Organization Address City/[facility]/ZIP Code Phon e Number [address] POCT Glucose (09/28/2021 4:58 AM EDT) athologist Signature POC Glucose 150 65 - 199 [place] AUDREY mg/dL [facility] LABORATORY Comment: Supplemental ranges: <140 mg/dL before meals <180 mg/dL all other times of the day Specimen Anatomical Collection Method Collection Time Receive d Time (Source) Location / / Volume Laterality Blood 09/28/2021 4:58 AM 2 4:58 EDT AM EDT Abdon Arreguin MD POINT OF CARE TEST ORDERABLE S Performing Organization Address City/[facility]/ZIP Code Phon e Number [address] POCT Glucose (09/28/2021 3:58 AM EDT) athologist Signature POC Glucose 153 65 - 199 [facility] AUDRE[facility] mg/dL [facility] LABORATORY Comment: Supplemental ranges: <140 mg/dL before meals <180 mg/dL all other times of the day Specimen Anatomical Collection Method Collection Time Receive d Time (Source) Location / / Volume Laterality Blood 09/28/2021 3:58 AM 2 3:58 EDT AM EDT Abdon Arreguin MD POINT OF CARE TEST ORDERABLE S Performing Organization Address City/State/ZIP Code Phon e Number [place] [id number] HOSPITAL LABORATORY Drive (ABNORMAL) Differential, Automated (09/28/2021 2:15 AM EDT) [facility] Method Time Signature Neutrophils % 87.6 % [facility] LABORATORY Neutr Abs (ANC) 11.58 (H) 1.70 - [facility] 6.10 [facility] x10(3)/[facility] L LABORATORY Lymphocytes % 5.2 % [facility] LABORATORY Lymphocytes Abs 0.7 (L) 0.9 - 3.2 [facility] x10(3)/[facility] LABORATORY Monocytes % 6.7 % [facility] LABORATORY Monocyte Abs 0.9 0.3 - 0.9 [facility] x10(3)/[facility] LABORATORY Eosinophils % 0.0 % [facility] LABORATORY Eosinophils Abs 0.0 0.0 - 0.4 [facility] x10(3)/[facility] LABORATORY Basophils % 0.2 % [facility] LABORATORY Basophils Abs 0.0 0.0 - 0.1 [facility] x10(3)/[facility] LABORATORY Immature Gran % 0.30 % [facility] LABORATORY Comment: Immature granulocytes(IG's)percentage an d absolute count will include metamyelocytes, myelocytes, and promyelo cytes. Blood smears from CBCs yielding IG's will be scanned manually for concor dance. If this scan disagrees with the automated IG or if promyelocytes are not ed, a manual differential will be performed. Anna Gran Abs 0.04 0.00 - 0.04 x10(3)/[facility] LABORATORY Specimen Anatomical Collection Method Collection Time Receive d Time (Source) Location / / Volume Laterality Blood 09/28/2021 2:15 AM 2:27 EDT AM EDT Resulting Agency Comment Spec In Lab Davie CONTRERAS HEMATOLOGY ORDERABLES Performing Organization Address City/[facility]/[place] [address] (ABNORMAL) Hemogram (09/28/2021 2:15 AM EDT) Analysis Performed At Patho logist Time Signature WBC 13.2 (H) 4.0 - 9.5 [facility] x[facility](3[facility] LABORATORY RBC 3.73 (L) 4.58 - [facility] 5.54 [facility] x10(6)/[facility] LABORATORY Hemoglobin 10.9 (L) 13.7 - [facility] 16.5 g/dL [facility] LABORATORY Hematocrit 33.1 (L) 40.5 - [facility] AUDREY 48.5 % [facility] LABORATORY MCV 88.7 82.9 - [facility] 93.1 [facility] LABORATORY MCH 29.2 27.5 - [facility] AUDRE[facility] 32.1 pg [facility] LABORATORY MCHC 32.9 32.0 - [facility] AUD[facility] 35.7 g/dL [facility] LABORATORY Platelets 145 145 - 357 [facility] x10(3)/[facility] LABORATORY RDWSD 46.3 (H) 36.0 - [facility] 45.0 [facility] LABORATORY RDWCV 14.3 (H) 11.4 - [facility] AUDRE[facility] 13.8 % [facility] LABORATORY MPV 10.3 7.6 - 12.9 [facility] LABORATORY nRBC % Auto 0.0 % [facility] LABORATORY nRBC Abs Auto 0.000 0.000 - [facility] 0.000 [facility] x10(3)/[facility] LABORATORY Specimen Anatomical Collection Method Collection Time Receive d Time (Source) Location / / Volume Laterality Blood 09/28/2021 2:15 AM 2 2:27 EDT AM EDT Resulting Agency Comment Spec In Lab Davie CONTRERAS HEMATOLOGY ORDERABLES Performing Organization Address City/State/[place] [address] (ABNORMAL) Basic Metabolic Panel (non-fasting) (09/28/2021 2:15 AM EDT) P athologist Signature Glucose Lvl 193 65 - 199 [facility] mg/dL [facility] LABORATORY Comment: Diabetes: >=200 mg/dL plus symp toms BUN 13 10 - 20 mg/dL [facility] LABORATORY Creatinine 0.73 (L) 0.80 - 1.50 mg/dL [facility] LABORATORY Sodium 139 135 - 145 mmol/L [facility] LABORATORY Potassium 4.3 3.5 - 5.0 mmol/L [facility] LABORATORY Comment: Please note: ??Patients with WBC >100,00 0 may have falsely elevated Potassium levels. ??For accurate Potassium quantif ication in these patients send serum separator tube (gold top) for subsequent determinations. ??Contact the Clinical Chemistry Laboratory if there are any qu estions. Chloride 108 (H) 98 - 107 mmol/L [facility] LABORATORY CO2 21 (L) 22 - 31 mmol/L [facility] LABORATORY Anion Gap 10 5 - 15 mmol/L [facility] LABORATORY Calcium 7.5 (L) 8.5 - 10.5 mg/dL [facility] LABORATORY Estimated GFR 95 >=60 mL/min/1.73 m?? [facility] LABORATORY Comment: This patient's estimated [...] Organization Address City/State/[place] [address] (ABNORMAL) Troponin (09/28/2021 2:15 AM EDT) P athologist Signature Troponin-T 0.31 (H) 0.00 - [facility] VENTURA 0.00 ng/mL [facility] LABORATORY Comment: The 99th percentile for Troponin T is le ss than 0.01 ng/mL, any detectable cTnT concentration using this assay should be considered elevated. According to the third universal definit ion of myocardial infarction the following criteria with a clinical prese ntation consistent with acute myocardial ischemia meets the diagnosis for a myocardial infarction ([place]). Detection of a rise and/or fall of [...] additional sample may be indicated. Reference: Third [place] Definition of Myocardial Infarction. Journal of the [place] [employer] 2012;60:1581-98 Specimen Anatomical Collection Method Collection Time Receive d Time (Source) Location / / Volume Laterality Blood 09/28/2021 2:15 AM 2 2:27 EDT AM EDT Resulting Agency Comment Spec In Lab Abdon Arreguin MD CHEMISTRY ORDERABLES Performing Organization Address City/State/[place] [address] POCT Glucose (09/28/2021 2:12 AM EDT) athologist Signature POC Glucose 183 65 - 199 [facility] AUDRE[facility] mg/dL [facility] LABORATORY Comment: Supplemental ranges: <140 mg/dL before meals <180 mg/dL all other times of the day Specimen Anatomical Collection Method Collection Time Receive d Time (Source) Location / / Volume Laterality Blood 09/28/2021 2:12 AM 2 2:12 EDT AM EDT Abdon Arreguin MD POINT OF CARE TEST ORDERABLE S Performing Organization Address City/[facility]/ZIP Code Phon e Number [address] POCT Glucose (09/28/2021 12:13 AM EDT) athologist Signature POC Glucose 182 65 - 199 [facility] mg/dL [facility] LABORATORY Comment: Supplemental ranges: <140 mg/dL before meals <180 mg/dL all other times of the day Specimen Anatomical Collection Method Collection Time Receive d Time (Source) Location / / Volume Laterality Blood 09/28/2021 12:13 09/28/2021 AM EDT 12:13 AM EDT Abdon Arreguin MD POINT OF CARE TEST ORDERABLE S Performing Organization Address [facility] Phon e Number [place]IR[place] [address] POCT Glucose (09/27/2021 10:07 PM EDT) athologist Signature POC Glucose 184 65 - 199 [facility] AUD[facility] mg/dL [facility] LABORATORY Comment: Supplemental ranges: <140 mg/dL before meals <180 mg/dL all other times of the day Specimen Anatomical Collection Method Collection Time Receive d Time (Source) Location / / Volume Laterality Blood 09/27/2021 10:07 09/27/2021 PM EDT 10:07 PM EDT Abdon Arreguin MD POINT OF CARE TEST ORDERABLE S Performing Organization Address City/[facility]/ZIP [place] [address] (ABNORMAL) Hemoglobin (09/27/2021 9:30 PM EDT) athologist Signature Hemoglobin 11.2 (L) 13.7 - [place] 16.5 g/dL [facility] LABORATORY Specimen Anatomical Collection Method Collection Time Receive d Time (Source) Location / / Volume Laterality Blood 09/27/2021 9:30 PM 9:34 EDT PM EDT Resulting Agency Comment Spec In Lab Abdon Arreguin MD HEMATOLOGY ORDERABLES Performing Organization Address City/State/[place] [address] Potassium (09/27/2021 9:30 PM EDT) P athologist Signature Potassium 4.2 3.5 - 5.0 [facility] mmol/L [facility] LABORATORY Comment: Please note: ??Patients [...] / Volume Laterality Blood 09/27/2021 9:30 PM 9:34 EDT PM EDT Resulting Agency Comment Spec In Lab Abdon Arreguin MD CHEMISTRY ORDERABLES Performing Organization Address City/State/[place] [address] (ABNORMAL) BLOOD GAS 2 ARTERIAL (09/27/2021 7:45 PM EDT) Analysis Performed At Patho logist Time Signature pH Art 7.31 (L) 7.35 - [facility] 7.45 [facility] LABORATORY pCO2 Art 37 35 - 45 [facility] mmHg [facility] LABORATORY pO2 Art 117 (H) 85 - 104 [facility] LABORATORY HCO3 Art 18.3 (L) 20.0 - [facility] 26.0 [facility] mmol/L [facility] LABORATORY BE Art -7.9 (L) -3.0 - 3.0 [facility] mmol/L [facility] LABORATORY Hgb Blood Gas 12.7 (L) 13.7 - [facility] 16.5 g/dL [facility] LABORATORY O2HB Art 96.8 94.0 - [facility] 97.0 % [facility] LABORATORY COHB Art 0.4 % [facility] LABORATORY Comment: Nonsmokers: 0.5-1.5% COHB Smokers: Variable, but usually less than 10% Toxic: 20-30% COHB Lethal: Greater than 60% COHB METHB Art 0.7 <=1.5 % [facility] LABORATORY Na Whole Blood 140 135 - 145 mmol/L [facility] LABORATORY K Whole Blood 3.9 3.5 - 5.0 mmol/L [facility] LABORATORY Comment: Please note: Patients with WBC >100,000 may have falsely elevated Potassium levels. Contact the Clinical Chemistry L aboratory if there are any questions. ICa Whole Blood 1.10 (L) 1.15 - 1.33 mmol/L [facility] LABORATORY Comment: Note: ??Total bilirubin higher than 20 m g/dL may lead to falsely low ionized calcium. CL Whole Blood 108 (H) 98 - 107 mmol/L [facility] LABORATORY Gluc Whole Bld 173 65 - 199 mg/dL [facility] LABORATORY Comment: Diabetes: >=200 mg/dL plus symp toms. Lactate WB 1.7 0.5 - 2.2 mmol/L [facility] LABORATORY FIO2 Art 40 % [facility] LABORATORY PF Ratio Art 292 [facility] LABORATORY Specimen Anatomical Collection Method Collection Time Receive d Time (Source) Location / / Volume Laterality Blood 09/27/2021 7:45 PM 2 7:45 EDT PM EDT Abdon Arreguin MD CHEMISTRY ORDERABLES Performing Organization Address City/State/ZIP Code Phon e Number [address] POCT Glucose (09/27/2021 7:19 PM EDT) P athologist Signature POC Glucose 149 65 - 199 [facility] mg/dL [facility] LABORATORY Comment: Supplemental ranges: <140 mg/dL before meals <180 mg/dL all other times of the day Specimen Anatomical Collection Method Collection Time Receive d Time (Source) Location / / Volume Laterality Blood 09/27/2021 7:19 PM 2 7:19 EDT PM EDT Abdon Arreguin MD POINT OF CARE TEST ORDERABLE S Performing Organization Address City/State/[place] [address] XR Chest One View [...] who have questions please contact the health primary care coordinator that requested your imaging first. ? Narrative 09/27/2021 6:36 PM EDT EXAMINATION: XR [...] ho have questions please contact the health primary care coordinator that requested your imaging first. Abdon Arreguin MD IMG DX ORDERABLES (ABNORMAL) BLOOD GAS 2 ARTERIAL (09/27/2021 5:58 PM EDT) athologist Signature pH Art 7.29 7.35 - [facility] (Critical) 7.45 [facility] LABORATORY Comment: Noted by instrumentation chemist. pCO2 Art 44 35 - 45 mmHg [facility] LABORATORY pO2 Art 462 (H) 85 - 104 mmHg [facility] LABORATORY HCO3 Art 20.7 20.0 - 26.0 mmol/L [facility] LABORATORY BE Art -5.9 (L) -3.0 - 3.0 mmol/L [facility] LABORATORY Hgb Blood Gas 12.9 (L) 13.7 - 16.5 g/dL [facility] LABORATORY O2HB Art 98.5 (H) 94.0 - 97.0 % [facility] LABORATORY COHB Art 0.4 % [facility] LABORATORY Comment: Nonsmokers: 0.5-1.5% COHB Smokers: Variable, but usually less than 10% Toxic: 20-30% COHB Lethal: Greater than 60% COHB METHB Art 0.7 <=1.5 % [facility] LABORATORY Na Whole Blood 138 135 - 145 mmol/L [facility] LABORATORY K Whole Blood 3.9 3.5 - 5.0 mmol/L [facility] LABORATORY Comment: Please note: Patients with WBC >100,000 may have falsely elevated Potassium levels. Contact the Clinical Chemistry L aboratory if there are any questions. ICa Whole Blood 1.15 1.15 - 1.33 mmol/L [facility] LABORATORY Comment: Note: ??Total bilirubin higher than 20 m g/dL may lead to falsely low ionized calcium. CL Whole Blood 105 98 - 107 mmol/L [facility] LABORATORY Gluc Whole Bld 166 65 - 199 mg/dL [facility] LABORATORY Comment: Diabetes: >=200 mg/dL plus symp toms. Lactate WB 1.6 0.5 - 2.2 mmol/L [facility] LABORATORY FIO2 Art 100 % [facility] LABORATORY PF Ratio Art 462 [facility] LABORATORY Specimen Anatomical Collection Method Collection Time Receive d Time (Source) Location / / Volume Laterality Blood 09/27/2021 5:58 PM 2 5:58 EDT PM EDT Abdon Arreguin MD CHEMISTRY ORDERABLES Performing Organization Address [facility] [place] [address] EKG 12 Lead (09/27/2021 5:47 PM EDT) Component Value Ref Range Test Analysis Performed Pathologis t Method Time At Signature Ventricular rate 80 BPM MUSE SYSTEM Atrial Rate 80 BPM MUSE SYSTEM P-R Interval 298 ms MUSE SYSTEM QRS Duration 148 ms MUSE SYSTEM Q-T Interval 482 ms MUSE SYSTEM QTC Calculated 555 ms MUSE SYSTEM (Bezet) Calculated P [place] 102 degrees MUSE SYSTEM Calculated R [place] 102 degrees MUSE SYSTEM Calculated T [place] -46 degrees MUSE SYSTEM INTERPRETATION Suspect arm [...] Arreguin MD ECG ORDERABLES Performing Organization Address City/State/ZIP Code Phon e Number MUSE SYSTEM (ABNORMAL) Thrombin time (09/27/2021 4:37 PM EDT) athologist Signature Thrombin Time 19 (H) 10 - 17 [facility] LABORATORY Comment: OR Result called by [...] Castanon MD HEMATOLOGY ORDERABLES Performing Organization Address [facility] Code Phon e Number [address] Fibrinogen (09/27/2021 4:37 PM EDT) athologist Signature Fibrinogen 247 200 - 393 [facility] mg/dL [facility] LABORATORY Comment: OR Result called [...] Resulting Agency Comment Spec In Lab Henny Castnaon MD HEMATOLOGY ORDERABLES Performing Organization Address City/[facility] Phon e Number [address] APTT (09/27/2021 4:37 PM EDT) athologist Signature PTT 33 25 - 37 sec [facility] LABORATORY Comment: OR Result called [...] Castanon MD HEMATOLOGY ORDERABLES Performing Organization Address City/[facility] Code Phon e Number [place] [id number] (ABNORMAL) Prothrombin Time (09/27/2021 4:37 PM EDT) P athologist Signature PT 17.8 (H) 9.4 - 12.5 [facility] LABORATORY Comment: OR Result called by ?? PARSAD OR Result s read back by: ? Lyndsay Jose Manuel at 2021-09-27 16:57:25 INR 1.6 [facility] LABORATORY Comment: OR Result called [...] Castanon MD HEMATOLOGY ORDERABLES Performing Organization Address City/[facility]/[place] [address] (ABNORMAL) Hemogram (09/27/2021 4:37 PM EDT) P athologist Signature WBC 17.4 (H) 4.0 - 9.5 [facility] x10(3)/[facility] LABORATORY RBC 3.34 (L) 4.58 - [facility] 5.54 [facility] x10(6)/[facility] LABORATORY Hemoglobin 9.6 (L) 13.7 - [facility] 16.5 g/dL [facility] LABORATORY Hematocrit 29.5 (L) 40.5 - [facility] 48.5 % [facility] LABORATORY Comment: This result has been called to NAYLA BARR by Heladio Ordonez on 09 27 2021 at 1648, and has been read back. MCV 88.3 82.9 - 93.1 [facility] LABORATORY MCH 28.7 27.5 - 32.1 [facility] LABORATORY MCHC 32.5 32.0 - 35.7 g/dL [facility] LABORATORY Platelets 152 145 - 357 x10(3)/[facility] LABORATORY RDWSD 44.7 36.0 - 45.0 [facility] LABORATORY RDWCV 13.9 (H) 11.4 - 13.8 % [facility] LABORATORY MPV 10.3 7.6 - 12.9 [facility] LABORATORY nRBC % Auto 0.0 % [facility] LABORATORY nRBC Abs Auto 0.000 0.000 - 0.000 x10(3)/[facility] LABORATORY Specimen Anatomical Collection Method Collection Time Receive d Time (Source) Location / / Volume Laterality Blood 09/27/2021 4:37 PM 4:43 EDT PM EDT Resulting Agency Comment Spec In Lab Henny Castanon MD HEMATOLOGY ORDERABLES Performing Organization Address City/State/[place] [address] (ABNORMAL) BLOOD GAS 2 ARTERIAL (09/27/2021 4:33 PM EDT) Analysis Performed At Patho logist Time Signature pH Art 7.36 7.35 - [facility] 7.45 [facility] LABORATORY pCO2 Art 41 35 - 45 [facility] LABORATORY pO2 Art 165 (H) 85 - 104 [facility] LABORATORY HCO3 Art 22.6 20.0 - [facility] 26.0 [facility] mmol/L [facility] LABORATORY BE Art -2.9 -3.0 - 3.0 [facility] mmol/L [facility] LABORATORY Hgb Blood Gas 10.3 (L) 13.7 - [facility] 16.5 g/dL [facility] O2HB Art 98.0 (H) 94.0 - [facility] 97.0 % [facility] LABORATORY COHB Art 0.3 % [facility] LABORATORY Comment: Nonsmokers: 0.5-1.5% COHB Smokers: Variable, but usually less than 10% Toxic: 20-30% COHB Lethal: Greater than 60% COHB METHB Art 0.3 <=1.5 % [facility] LABORATORY Na Whole Blood 134 (L) 135 - 145 mmol/L [facility] LABORATORY K Whole Blood 3.8 3.5 - 5.0 mmol/L [facility] LABORATORY Comment: Please note: Patients with WBC >100,000 may have falsely elevated Potassium levels. Contact the Clinical Chemistry L aboratory if there are any questions. ICa Whole Blood 1.12 (L) 1.15 - 1.33 mmol/L [facility] LABORATORY Comment: Note: ??Total bilirubin higher than 20 m g/dL may lead to falsely low ionized calcium. CL Whole Blood 108 (H) 98 - 107 mmol/L [facility] LABORATORY Gluc Whole Bld 155 65 - 199 mg/dL [facility] LABORATORY Comment: Diabetes: >=200 mg/dL plus symp toms. Lactate WB 1.4 0.5 - 2.2 mmol/L [facility] LABORATORY Specimen Anatomical Collection Method Collection Time Receive d Time (Source) Location / / Volume Laterality Blood 09/27/2021 4:33 PM 4:33 EDT PM EDT Abdon Arreguin MD CHEMISTRY ORDERABLES Performing Organization Address City/State/[place] [address] Prepare cryoprecipitate (09/27/2021 4:20 PM EDT) P athologist Signature Dispensed? Yes [facility] LABORATORY Specimen Anatomical Collection Method Collection Time Receive d Time (Source) Location / / Volume Laterality Blood 09/27/2021 4:20 PM 4:19 EDT PM EDT Abdon Arreguin MD BLOOD BANK ORDERABLES Performing Organization Address City/[facility]/[place] [address] (ABNORMAL) BLOOD GAS 2 ARTERIAL (09/27/2021 3:48 PM EDT) Analysis Performed At Patho logist Time Signature pH Art 7.39 7.35 - [facility] 7.45 [facility] LABORATORY pCO2 Art 38 35 - 45 [facility] LABORATORY pO2 Art 482 (H) 85 - 104 [facility] LABORATORY HCO3 Art 22.6 20.0 - [facility] 26.0 [facility] mmol/L [facility] LABORATORY BE Art -2.3 -3.0 - 3.0 [facility] mmol/L [facility] LABORATORY Hgb Blood Gas 10.0 (L) 13.7 - [facility] 16.5 g/dL [facility] LABORATORY O2HB Art 98.9 (H) 94.0 - [facility] 97.0 % [facility] LABORATORY COHB Art 0.3 % [facility] LABORATORY Comment: Nonsmokers: 0.5-1.5% COHB Smokers: Variable, but usually less than 10% Toxic: 20-30% COHB Lethal: Greater than 60% COHB METHB Art 0.3 <=1.5 % [facility] LABORATORY Na Whole Blood 133 (L) 135 - 145 mmol/L [facility] LABORATORY K Whole Blood 4.2 3.5 - 5.0 mmol/L [facility] LABORATORY Comment: Please note: Patients with WBC >100,000 may have falsely elevated Potassium levels. Contact the Clinical Chemistry L aboratory if there are any questions. ICa Whole Blood 0.99 (L) 1.15 - 1.33 mmol/L [facility] LABORATORY Comment: Note: ??Total bilirubin higher than 20 m g/dL may lead to falsely low ionized calcium. CL Whole Blood 105 98 - 107 mmol/L [facility] LABORATORY Gluc Whole Bld 144 65 - 199 mg/dL [facility] LABORATORY Comment: Diabetes: >=200 mg/dL plus symp toms. Lactate WB 1.4 0.5 - 2.2 mmol/L [facility] LABORATORY Specimen Anatomical Collection Method Collection Time Receive d Time (Source) Location / / Volume Laterality Blood 09/27/2021 3:48 PM 3:48 EDT PM EDT Abdon Arreguin MD CHEMISTRY ORDERABLES Performing Organization Address City/State/[place] [address] Platelet count (09/27/2021 3:40 PM EDT) athologist Signature Platelets 164 145 - 357 [facility] x10(3)/[facility] LABORATORY Plat Immature 3.8 0.0 - 7.4 [facility] % % [facility] LABORATORY Comment: Limitation of the Immature Platelet Frac tion (IPF)-May be less reliable when the platelet count is less than 37a559/u L due to statistical imprecision. The IPF [...] in a decreased state of production. References: [employer] The Clinical Value of the Immature Platelet Fraction (IPF) in Cell Recovery Document Number [id number] 07/2010 [employer] The Role of the Imm ature Platelet Fraction (IPF) in the Differential Diagnosis of Thrombocytopen ia, Document [id number] V05 P006/22 Specimen Anatomical Collection Method Collection Time Receive d Time (Source) Location / / Volume Laterality Blood 09/27/2021 3:40 PM 2 3:55 EDT PM EDT Resulting Agency Comment Spec In Lab Abdon Arreguin MD HEMATOLOGY ORDERABLES Performing Organization Address City/[facility]/[place] [address] (ABNORMAL) Hemoglobin (09/27/2021 3:40 PM EDT) athologist Signature Hemoglobin 9.3 (L) 13.7 - 16.5 [facility] [place] g/dL [facility] LABORATORY Comment: This result has been called to LYNDSAY HARRIS by Ambrosio Pena on 09 27 2021 at 1602, and has been read back. Specimen Anatomical Collection Method Collection Time Receive d Time (Source) Location / / Volume Laterality Blood 09/27/2021 3:40 PM 2 3:55 EDT PM EDT Resulting Agency Comment Spec In Lab Abdon Arreguin MD HEMATOLOGY ORDERABLES Performing Organization Address [facility] [place] [address] Fibrinogen (09/27/2021 3:40 PM EDT) athologist Signature Fibrinogen 235 200 - 393 [facility] mg/dL [facility] LABORATORY Comment: OR Result called [...] Organization Address City/State/[place] [address] (ABNORMAL) Hematocrit (09/27/2021 3:40 PM EDT) P athologist Signature Hematocrit 27.7 (L) 40.5 - [facility] 48.5 % [facility] LABORATORY Comment: This result has been called [...] Organization Address City/State/[place] [address] (ABNORMAL) BLOOD GAS 2 ARTERIAL (09/27/2021 3:16 PM EDT) Analysis Performed At Patho logist Time Signature pH Art 7.41 7.35 - [facility] 7.45 [facility] LABORATORY pCO2 Art 36 35 - 45 [facility] mmHg [facility] LABORATORY pO2 Art 525 (H) 85 - 104 [facility] LABORATORY HCO3 Art 22.5 20.0 - [facility] 26.0 [facility] mmol/L [facility] LABORATORY BE Art -2.1 -3.0 - 3.0 [facility] mmol/L [facility] LABORATORY Hgb Blood Gas 10.1 (L) 13.7 - [facility] 16.5 g/dL [facility] LABORATORY O2HB Art 98.8 (H) 94.0 - [facility] 97.0 % [facility] LABORATORY COHB Art 0.3 % [facility] LABORATORY Comment: Nonsmokers: 0.5-1.5% COHB Smokers: Variable, but usually less than 10% Toxic: 20-30% COHB Lethal: Greater than 60% COHB METHB Art 0.3 <=1.5 % [facility] LABORATORY Na Whole Blood 132 (L) 135 - 145 mmol/L [facility] LABORATORY K Whole Blood 4.0 3.5 - 5.0 mmol/L [facility] LABORATORY Comment: Please note: Patients with WBC >100,000 may have falsely elevated Potassium levels. Contact the Clinical Chemistry L aboratory if there are any questions. ICa Whole Blood 1.00 (L) 1.15 - 1.33 mmol/L [facility] LABORATORY Comment: Note: ??Total bilirubin higher than 20 m g/dL may lead to falsely low ionized calcium. CL Whole Blood 105 98 - 107 mmol/L [facility] LABORATORY Gluc Whole Bld 141 65 - 199 mg/dL [facility] LABORATORY Comment: Diabetes: >=200 mg/dL plus symp toms. Lactate WB 1.4 0.5 - 2.2 mmol/L [facility] LABORATORY Specimen Anatomical Collection Method Collection Time Receive d Time (Source) Location / / Volume Laterality Blood 09/27/2021 3:16 PM 2 3:16 EDT PM EDT Abdon Arreguin MD CHEMISTRY ORDERABLES Performing Organization Address City/State/[place] [address] (ABNORMAL) BLOOD GAS 2 ARTERIAL (09/27/2021 2:46 PM EDT) Analysis Performed At Patho logist Time Signature pH Art 7.36 7.35 - [facility] 7.45 [facility] LABORATORY pCO2 Art 44 35 - 45 [facility] LABORATORY pO2 Art 554 (H) 85 - 104 [facility] LABORATORY HCO3 Art 24.6 20.0 - [facility] 26.0 [facility] mmol/L [facility] LABORATORY BE Art -0.8 -3.0 - 3.0 [facility] mmol/L [facility] LABORATORY Hgb Blood Gas 9.6 (L) 13.7 - [facility] 16.5 g/dL [facility] LABORATORY O2HB Art 99.0 (H) 94.0 - [facility] 97.0 % [facility] LABORATORY COHB Art 0.3 % [facility] LABORATORY Comment: Nonsmokers: 0.5-1.5% COHB Smokers: Variable, but usually less than 10% Toxic: 20-30% COHB Lethal: Greater than 60% COHB METHB Art 0.3 <=1.5 % [facility] LABORATORY Na Whole Blood 133 (L) 135 - 145 mmol/L [facility] LABORATORY K Whole Blood 4.2 3.5 - 5.0 mmol/L [facility] LABORATORY Comment: Please note: Patients with WBC >100,000 may have falsely elevated Potassium levels. Contact the Clinical Chemistry L aboratory if there are any questions. ICa Whole Blood 0.97 (L) 1.15 - 1.33 mmol/L [facility] LABORATORY Comment: Note: ??Total bilirubin higher than 20 m g/dL may lead to falsely low ionized calcium. CL Whole Blood 105 98 - 107 mmol/L [facility] LABORATORY Gluc Whole Bld 128 65 - 199 mg/dL [facility] LABORATORY Comment: Diabetes: >=200 mg/dL plus symp toms. Lactate WB 1.1 0.5 - 2.2 mmol/L [facility] LABORATORY Specimen Anatomical Collection Method Collection Time Receive d Time (Source) Location / / Volume Laterality Blood 09/27/2021 2:46 PM 2 2:46 EDT PM EDT Abdon Arreguin MD CHEMISTRY ORDERABLES Performing Organization Address City/State/[place] [address] BLOOD GAS 2 ARTERIAL (09/27/2021 1:47 PM EDT) P athologist Signature pH Art 7.37 7.35 - [facility] 7.45 [facility] LABORATORY pCO2 Art 44 35 - 45 [facility] mmHg [facility] LABORATORY pO2 Art 102 85 - 104 [facility] LABORATORY HCO3 Art 25.0 20.0 - [facility] 26.0 [facility] mmol/L [facility] LABORATORY BE Art -0.3 -3.0 - 3.0 [facility] mmol/L [facility] LABORATORY Hgb Blood Gas 13.7 13.7 - [facility] 16.5 g/dL [facility] LABORATORY O2HB Art 96.5 94.0 - [facility] 97.0 % [facility] LABORATORY COHB Art 0.7 % [facility] LABORATORY Comment: Nonsmokers: 0.5-1.5% COHB Smokers: Variable, but usually less than 10% Toxic: 20-30% COHB Lethal: Greater than 60% COHB METHB Art 0.3 <=1.5 % [facility] LABORATORY Na Whole Blood 139 135 - 145 mmol/L [facility] LABORATORY K Whole Blood 3.6 3.5 - 5.0 mmol/L [facility] LABORATORY Comment: Please note: Patients with WBC >100,000 may have falsely elevated Potassium levels. Contact the Clinical Chemistry L aboratory if there are any questions. ICa Whole Blood 1.15 1.15 - 1.33 mmol/L [facility] LABORATORY Comment: Note: ??Total bilirubin higher than 20 m g/dL may lead to falsely low ionized calcium. CL Whole Blood 105 98 - 107 mmol/L [facility] LABORATORY Gluc Whole Bld 116 65 - 199 mg/dL [facility] LABORATORY Comment: Diabetes: >=200 mg/dL plus symp toms. Lactate WB 1.1 0.5 - 2.2 mmol/L [facility] LABORATORY Specimen Anatomical Collection Method Collection Time Receive d Time (Source) Location / / Volume Laterality Blood 09/27/2021 1:47 PM 2 1:47 EDT PM EDT Abdon Arregiun MD CHEMISTRY ORDERABLES Performing Organization Address City/State/[place] [address] Transesophageal Echo/OR (09/27/2021 12:56 [...] Age: 76 Years Gender: Male Ordering Physician: [id number]^KALLIE^ABDON^P^^^^^EPIC^^^^PROV ID Referring Physician: [id number]^UNKNOWN^^^^^^ ^EPIC^^^^PROVID ? Conclusions Intraoperative GIUSEPPE performed to [...] Date: 09/09, 12: 56 PM Patient Location: [facility] : 1945 (MM/DD/YYYY) Age: 76 Years Gender: Male Ordering Physician: [id number]^KALLIE^ABDON^P^^^^^EPIC^^^^PROV ID Referring Physician: [id number]^UNKNOWN^^^^^^ ^EPIC^^^^PROVID Conclusions Intraoperative GIUSEPPE performed to confirm [...] MD 09/27/2021, 4: 32 PM Ordering Physician: KALLIE, ABDON P Referring Physician: UNKNOWN Abdon Arreguin MD ECHO ORDERABLES Prepare RBC (09/27/2021 12:05 PM EDT) athologist Signature Dispensed? Yes [facility] Specimen Anatomical Collection Method Collection Time Receive d Time (Source) Location / / Volume Laterality Blood 09/27/2021 12:05 09/27/2021 PM EDT 12:02 PM EDT Abdon Arreguin MD BLOOD BANK ORDERABLES Performing Organization Address City/State/ZIP Code Phon e Number [address] POCT Glucose (09/27/2021 11:37 AM EDT) athologist Signature POC Glucose 124 65 - 199 [facility] mg/dL [facility] Comment: Supplemental ranges: <140 mg/dL before meals <180 mg/dL all other times of the day Specimen Anatomical Collection Method Collection Time Receive d Time (Source) Location / / Volume Laterality Blood 09/27/2021 11:37 09/27/2021 AM EDT 11:37 AM EDT Abdon Arreguin MD POINT OF CARE TEST ORDERABLE S Performing Organization Address City/State/[place] [address] SCAN DOC: LAB (09/27/2021 12:00 AM EDT) Narrative 09/27/2021 12:00 AM EDT This result has an attachment that is no t available. Ordered by an unspecified provider. Scanning Provider MEDIA MGR SCAN EXT ORDR/RSLT documented in this encounter Visit Diagnoses Not on filedocumented in this encounter Administered Medications Inactive Administered Medications - up to 3 most recent administrations Medication Order MAR Action Action Date Dose Rate Site acetaminophen (Tylenol) tablet Given 10/03/2021 11:28 AM EDT 1,0 00 mg 1,000 mg 1,000 mg, Oral, EVERY 6 [...] Given 10/02/2021 11:32 PM EDT 1,000 mg aspirin chewable tablet 81 mg Given 10/03/2021 8:07 AM EDT 81 mg 81 mg, Oral, DAILY, First dose on Thu09/27/21 at 1830, Until Discontinued, Routine Given 10/02/2021 9:01 AM EDT 81 mg Given 10/01/2021 8:45 AM EDT 81 mg benzonatate (Tessalon) capsule 200 mg Given 10/03/2021 [...] Given 10/02/2021 9:07 AM EDT 2 Inhalation dextrose 10% infusion 250 mL, at 1,000 [...] for the duration of the active insulin. furosemide (Lasix) (10 mg/mL) injection 20 mg Given 10/03/2021 8:07 AM EDT 20 mg 20 mg, Intravenous, DAILY, First dose (after last modification) on 10/02/21 at 0930, Until Discontinued Given 10/02/2021 9:02 AM EDT 20 mg gelatin adsorbable (Gelfoam) Given 09/29/2021 1:07 PM EDT 2 each 19- Surgical Site sponge ONCE PRN, Starting on 09/29/21 at 1307, Until Izabel 10/03/21 at 1914, Intra-Operative (Intra-Procedure) gemfibroziL (Lopid) tablet 300 mg Given 10/03/2021 4:11 PM EDT 300 mg 300 mg, Oral, 2 TIMES DAILY BEFORE MEALS, First dose on 09/28/21 at 0730, Until Discontinued, Routine Given 10/03/2021 8:07 AM EDT 300 mg Given 10/02/2021 4:39 PM EDT 300 mg glucagon (Glucagen) (1 mg/mL) injection solution 1 mg 1 mg, Intramuscular, EVERY 30 MIN PRN, S tarting on 09/30/21 at 0815, Until Izabel 10/03/21 [...] PRN, Starting on Thu09/30/21 at 0815, Until Thu10/03/21 at 1914, Low blood sug ar, For [...] Given 10/02/2021 7:28 AM EDT 600 mg HYDROmorphone (Dilaudid) tablet 2 mg Given 09/28/2021 [...] BEFORE MEALS & NIGHTLY, First dose on Thu09/30/21 at 0915, Until Discontinued, CORRECTION BOLUS [1-6 [...] Given 10/02/2021 11:29 AM EDT 1 Units ipratropium-albuteroL (Duoneb) 0.5 mg-3 mg(2.5 Given 0 [...] on 09/28/21 at 0600, Until Discontinued, Routine Given 10/02/2021 5:27 AM EDT 125 mcg Given 10/01/2021 5:08 AM EDT 125 mcg lidocaine (Lidoderm) 5% Patch Applied 10/02/2021 11:32 PM 1 patch 11- Chest (Left) patch 1 patch EDT 1 patch, Transdermal, EVERY 24 HOURS, First dose on 09/28/21 at 0015, Until Discontinued, [...] 10 mL, Oral, DAILY, First dose on 09/29/21 at 0900, Until Discontinued, Post-op day 2. Do not use with renal insufficiency., Routine Given 09/29/2021 8:41 AM EDT 10 mLs metFORMIN (Glucophage) tablet 1,000 mg Given 10/03/2021 4:10 PM EDT 1,000 mg 1,000 mg, Oral, 2 TIMES DAILY WITH MEALS, First dose on Thu10/01/21 at 1700, Until Discontinued, Routine Given 10/03/2021 8:07 AM EDT 1,000 mg Given 10/02/2021 5:53 PM EDT 1,000 mg metoprolol tartrate (Lopressor) tablet 5 0 mg Given 10/03/2021 2:11 PM EDT 50 mg 50 mg, Oral, EVERY 8 HOURS SCHEDULED, First dose (after last modification) on Thu10/01/21 at 0745, Until Discontinued, Hold for HR<60 or SBP<90, Routine Given 10/03/2021 5:16 AM EDT 50 mg Given 10/02/2021 9:02 PM EDT 50 mg pantoprazole EC (Protonix) tablet 40 mg Given 10/03/2021 8:07 AM EDT 40 mg 40 mg, Oral, DAILY, First dose on Thu09/27/21 at 1830, Until Discontinued, DO NOT CRUSH OR OPEN If unable to take PO, may give IV, Routine Given 10/02/2021 9:02 AM EDT 40 mg Given 10/01/2021 8:46 AM EDT 40 mg polyethylene glycoL (Miralax) packet 17 g Given 10/03/2021 8:07 AM EDT 17 g 17 g, Oral, DAILY, First dose on Thu09/30/21 at 0915, Until Discontinued, Routine Given 09/30/2021 11:47 AM EDT 17 g pravastatin (Pravachol) tablet 80 mg Given 10/03/2021 4:11 PM EDT 80 mg 80 mg, Oral, EVERY EVENING, First dose on Thu09/27/21 at 2100, Until Discontinued, Routine Given 10/02/2021 6:41 PM EDT 80 mg Given 10/01/2021 5:10 PM EDT 80 mg senna-docusate (Pericolace) 8.6-50 mg per Given 2021 [...] Given 10/01/2021 8:16 PM EDT 5 mLs tamsulosin (Flomax) capsule 0.4 mg Given 10/03/2021 8:07 AM EDT 0.4 mg 0.4 mg, Oral, 2 TIMES DAILY, First dose on 09/28/21 at 0900, Until Discontinued, DO NOT CRUSH OR OPEN, Routine Given 10/02/2021 8:40 PM EDT 0.4 mg Given 10/02/2021 9:22 AM EDT 0.4 mg thrombin (bovine) Given 09/29/2021 1:07 PM 5,000 Units 19- Surgical Site (Thrombin-Jmi) solution EDT ONCE PRN, Starting on 09/29/21 at 1307, Until Izabel 10/03/21 at 1914, Intra-Operative (Intra-Procedure) warfarin (COUMADIN) daily order reminder Oral, EVERY 24 HOURS, First dose on Thu10/01/21 at 1400, Until Discontinued, If the daily warfarin order has not been placed , contact the Provider to confirm that the order will be written, the dose is held or discontinue d. documented in this encounter Active and Recently Administered Medications Times are shown in EDT. Scheduled Medication Order 10/01/2021 10/02/2021 10/03/2021 acetaminophen (Tylenol) tablet 1,000 mg 0508 (Given - Provider: Tatiana Lopez RN)1152 (Given - Provider: Fransisca Hernandez RN)1710 (Given - Provider: Fransisca Hernandez RN)2325 (Given - Provider: Tatiana Lopez RN) 0527 (Given - Provider: Guenevere A Griffith janay, RN)1128 (Given - Provider: Marilou Graff RN)1754 [...] 81 mg 0845 (Given - Provider: Nino Hernadnez RN) 0901 (Given - Provider: Marilou Graff RN) 0807 (Given - Provider: Esthela Vu RN) 81 mg, Oral, DAILY, First dose on Thu at 1830, Until Discontinued, Routine benzonatate (Tessalon) capsule 200 mg 1857 (Given - Pr ovider: Fransisca Hernandez RN) 0902 (Given - Provider: Marilou Graff RN)1404 (Given - Provider: Marilou Graff RN)204 (Given - Provider: Tatiana Lopez RN) 0807 (Given - Provider: Esthela Vu RN)1411 (Given - Provider: Esthela Vu RN) 200 mg, Oral, 3 TIMES DAILY, First dose on Thu10/01/21 at 1930, Until Discontinued, DO NOT CRUSH OR OPEN, Routine budesonide-formoteroL (Symbicort) 160-4.5 mcg/actuatio n inhaler 2 Inhalation 0845 (Given - Provider: Fransisca Hernandez RN)2014 (Given - Provider: Tatiana Lopez RN) 0907 (Given - Provider: Marilou Graff RN)204 (Given - Provider: Tatiana Lopez RN) 0808 (Given - Provider: Esthela george RN) 2 Inhalation, Inhalation, 2 TIMES DAILY, First dose on Thu09/27/21 at 2100, Until Discontinued enoxaparin (Lovenox) (120 mg/0.8 mL) subcutaneous injection 110 mg (COMPLETED) 1609 (Given - Provider: Esthela george RN) 110 mg, Subcutaneous, EVERY 12 HOURS KAE EDULED (2 times per day), 1 dose, First dose (after last modification) on Thu10/03/21 at 1600, Routine furosemide (Lasix) (10 mg/mL) injection 20 mg (CANCELE D) 0846 (Given - Provider: Fransisca Hernandez RN)1712 (Given - Provider: Fransisca Hernandez RN) 20 mg, Intravenous, 2 TIMES DAILY, First dose on Thu09/29/21 at 1000, Until Discontinued furosemide (Lasix) (10 mg/mL) injection 20 mg 0902 (Given - Provider: Marilou Graff RN) 0807 (Given - Provider: Esthela george RN) 20 mg, Intravenous, DAILY, First dose (a fter last modification) on Thu10/02/21 at 0930, Until Discontinued gemfibroziL (Lopid) tablet 300 mg 0845 (Given - Provid er: Fransisca Hernandez RN)1630 (Given - Provider: Fransisca Hernandez RN) 0729 (Given - Provider: Marilou Graff RN)1639 (Given - Provider: Marilou Graff RN) 0807 [...] Group 1) 0851 (Given - Provider: Fransisca mcmullen, RN)1153 (Given - Provider: Fransisca Hernandez, RN)1630 (Not Given - Provider: Fransisca Hernandez, RN - Reason: Order parameters not met)2014 (Given - Provider: Tatiana Lopez, TY) 0733 (Given - Provider: Marilou Graff, RN)112 (Given - Provider: Marilou Graff, RN)163 (Given - Provider: Marilou Graff, TY)204 (Given - Provider: Tatiana Lopez RN) 0730 (Not Given - Provider: Esthela Vu RN - Reason: Order parameters not met)113 (Not Given - Provider: Esthela Vu RN [...] Reason: Patient/family refused)0846 (Given - Provider: Fransisca Hernandez RN)1400 (Not Given - Provider: Fransisca Hernandez RN - Reason: Patient/family refused) 0105 (Given - Provider: Tatiana gustafson RN)0907 (Given - Provider: Marilou Graff, TY)1405 (Given - Provider: Marilou Graff RN)2040 (Given [...] 2) 0015 (Not Given - Provider: Tatiana Lopez RN - Reason: See comment - Comment: patch [...] 10 mL, Oral, DAILY, First dose on Thu at 0900, Until Discontinued, Post- op day 2. Do not use with renal insufficiency., Routine magnesium sulfate 2 g in sterile water 50 mL infusion (COMPLETED) 0856 (New Bag - Provider: Fransisca Hernandez RN)1056 (Stopped - Provider: Fransisca Hernandez RN) 2 [...] Tatiana gustafson, RN)1405 (Given - Provider: Marilou Graff RN)2102 (Given - Provider: Tatiana Lopez RN) 0516 (Given - Provider: Tatiana gustafson RN)1411 (Given - Provider: Esthela Vu, TY) 50 mg, Oral, EVERY 8 HOURS SCHEDULED, Fi rst dose (after last modification) on Thu10/01/21 at 0745, Until Discontinued, Hold for HR<60 or SBP<90, Routine pantoprazole EC (Protonix) tablet 40 mg 0846 (Given - Provider: Fransisca Hernandez, TY) 0902 (Given - Provider: Marilou Graff, TY) 0807 (Giv en - Provider: Esthela Vu, TY) 40 mg, Oral, DAILY, First dose on [...] Tatiana Lopez RN)1152 (Given - Provider: Fransisca Hernandez, TY) 40 mEq, Oral, EVERY 4 HOURS, 2 [...] (COMPLE ANGELICA) 1249 (Given - Provider: Marilou Graff, TY) 40 mEq, Oral, ONCE, 1 dose, On Thu at 1200, 20 mEq tablet may be dissolved in water for administration, Routine pravastatin (Pravachol) tablet 80 mg 1710 (Given - Pro vider: Fransisca Hernandez RN) 1841 (Given - Provider: Marilou Graff RN) 1611 (Giv en - Provider: Esthela Vu, TY) 80 mg, Oral, EVERY EVENING, First dose o n 09/27/21 at 2100, Until Discontinued, Routine senna-docusate (Pericolace) 8.6-50 mg per tablet 2 tab let 2014 (Given - Provider: Tatiana Lopez RN) 2039 (Given - Provider: Tatiana gustafson RN) 2 tablet, Oral, DAILY, First dose on 09/28/21 at 2100, Until Discontinued, Post-op day 1, Routine sodium chloride 0.9 % (flush) (BD PosiFlush Normal Beto ine 0.9) flush 5 mL 0500 (Not Given - Provider: Tatiana Lopez RN - Reason: See comment - Comment: IV flushed at 2100)1300 (Not Given - Provider: Fransisca Hernandez RN - Reason: See comment - Comment: infusing)2015 (Given - Provider: Tatiana Lopez RN) 0500 (Not Given - Provider: Tatiana Lopez RN - Reason: Patient/family refused)1300 (Given - Provider: Marilou Graff RN)2040 (Given - Provider: Tatiana Lopez RN) 0500 (Not Given - Provider: Tatiana Lopez RN - Reason: Patient/family refused)1300 (Not Given - Provider: Esthela Vu RN - Reason: See comment) 5 mL, Intravenous, EVERY 8 HOURS, First dose on 09/28/21 at 1300, Until Discontinued, Routine tamsulosin (Flomax) capsule 0.4 mg 0846 (Given - Provi aimee: Fransisca Hernandez RN)2014 (Given - Provider: Tatiana Lopez RN) 09 (Given - Provider: Marilou Graff RN)2039 (Given - Provider: Tatiana Lopez RN) 0807 (Given - Provider: Esthela Vu RN) 0.4 [...] discontinued. warfarin (Coumadin) tablet 3 mg (COMPLETED) 1710 (Give n - Provider: Fransisca Hernandez RN) 3 mg, Oral, ONCE, 1 dose, On Thu10/01/21 at 1700, DO NOT SPLIT, CRUSH OR OPEN, Routine warfarin (Coumadin) tablet 5 mg (COMPLETED) 1610 (Given - Provider: Esthela Vu RN) 5 mg, Oral, ONCE, 1 dose, On Thu10/03/21 at 1700, DO NOT SPLIT, CRUSH OR OPEN, Routine warfarin (Coumadin) tablet 7.5 mg (COMPLETED) 175 (Given - Provider: Marilou Graff RN) 7.5 [...] Sarah Graff RN)1200 (Rate/Dose Verify - Provider: Marilou Graff RN)1815 (Rate/Dose Verify - Provider: Marilou [...] Starting on Thu09/27/21 at 2323, Until Izabel /25/22 at 1914, Pain, for moderate pain (4-6), May give an additional 2 mg once if pain not relieved in 30-60 minutes., Routine HYDROmorphone (Dilaudid) tablet 6 mg(Linked Group 4) 6 mg, Oral, EVERY 4 HOURS PRN, Starting on Thu09/27/21 at 2323, Until Thu10/03/21 at 191, Pain, for severe pain (7-10), May give an additional 2 mg once if pain not relieved in 30-60 minutes., Routine ondansetron (pf) (Zofran) (2 mg/mL) injection 4 mg 4 mg, Intravenous, EVERY 8 HOURS PRN, St arting on Thu09/27/21 at 1743, Until Thu10/03/21 at 1913, Nausea Linked Groups Order Group 1: POCT [...] Thu09/30/21 at 0815, Until Izabel 10/03/21 at 1914
[...] episode. & nbsp; For persistent hypoglycemia, con blender operator longer-acting treatment for the duration of the [...]
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
--- OUTSIDE RECORDS SUMMARY | 2021-10-25 11:03 | XMS_ITS | Encounter Summary ---
:1945 Author Organization [facility] Address [facility] [place] [address] Care Team Providers Name Role Phone Jesusita Law MD Primary Care Provider [phone] Reason for Visit Auth/Cert Specialty Diagnoses / Procedures Referred By Contact Refer red To Contact Diagnoses Coronary artery disease involving [place] heart with unstable angina pectoris, unspecified vessel or lesion type cad Abdon Dawson MD [facility] Procedures PRO CABG, ARTERIAL, SINGLE PRO CABG, ARTERY-VEIN, THREE PRO ENDOSCOPY W/VIDEO-ASST VEIN HARVEST, CABG @CABG, USING ARTERIAL GRAFT;SINGLE ARTERIAL GRAFT (WRVU 33.75) @CABG; 3 VENOUS GRAFTS & ARTERIAL GRAFT (WRVU 10.49) [facility] ENDOSCOPIC HARVEST VEIN(S) FOR CABG (WRV U 0.31) [place] [address] Referral ID Status Reason Start Date Expiration Date Visits Requ ested Visits Authorized [id number] 1 1 Encounter Details Date Type Department Care Team Description 09/29/2021 Anesthesia Event Main Operating Room Blair Arcos MD [facility] [place], [place] [address] [place] [address] [phone] Anesthesia Record Procedure Summary Procedure Name Responsible Anesthesia Start Anesthesia Stop Anesthesiologist Time Time EMBOLECTOMY OR Mir Arcos MD 09/29/21 1259 09/29/21 1513 THROMBECTOMY, FEMOROPOPLITEAL, AORTOILIAC ARTERY BY LEG INCISION (WRVU 19.48) (Left Leg Lower) Events Date Time Event Comment 09/29/2021 1254 1259 AN Verify 1259 Start 1300 An Start Data 1315 An Induction 1319 An Intubation 1322 Anesthesia Ready 1332 ABG Data Arterial Blood G as result: pH 7.38 pCO2 37 pO2 202 %O2 Sat 99 FiO2 60% HCO3 21 BE -4 Hb 11.5 K 3.8 Gluco se 134 Lactate 1.4 1335 an santos now 1335 Procedure Start 1358 Heparin 1513 Extubation/LMA Out 1513 an stop data 1513 Recovery or ICU Handoff Patient care was transferred to the destination unit staff after review of the patient's medica l history, current anesthetic/surgi genet status and plan, according to the Provider Handoff Checklist. 1513 Stop Name Total Propofol 150 mg Rocuronium 100 mg PHENYLephrine 240 mcg Dexamethasone 4 mg Ondansetron 4 mg ceFAZolin 2 g Dexmedetomidine INF 38.52 mcg NORepinephrine INF 200 mcg Heparin 11,000 Units HYDROmorphone 2 mg/mL 1 mg Protamine 50 mg Sugammadex 200 mg Lactated Ringers 800 mL Lactated Ringers 200 mL Agents Name O2 Air N2O Sevoflurane (et) Blood No blood administrations on file. Lines, Drains, and Airways Type Details Placement Removal PIV 09/27/21; 1138; 09/27/21 1138 by metacarpal vein (top of Ioana Isabel RN hand), left; [id number] catheter system; 18 gauge; ioana CRAWFORD Incision 09/27/21; 1349; anterior, 09/27/21 1349 by midline; chest; vertical Lyndsay Richard RN Incision 09/27/21; 1349; Right, 09/27/21 1349 by medial; leg; Lyndsay Richard RN non-laparascopic puncture PIV 09/29/21; 1322; cephalic 09/29/21 1322 by vein (lateral side of Reynaldo Nieves MD arm), right; Ultrasound Guidance; Yes - US guidance used but Image NOT saved; 14 gauge; nitin castro Incision 09/29/21; 1335; Left; 09/29/21 1335 by groin; vertical Opal Dang RN Urethral Catheter 09/27/21; 1309; Surgery 09/27/21 1309 by 09/30 1020 by longer than 2 hours; Lyndsay Richard, Fransisca Pugh Q1-2hr UOP in ICU patient E, RN without alternative; indwelling catheter with core temperature probe; hydrophilic coated, latex; 14; inserted at this facility (inserted without difficulty, urine noted in catheter); 1; 10; 10; none; drainage bag to dependent drainage; 09/30/21; 1020 ETT Mask Ventilation: Adjunct 09/29/21 1319 by 09/29 1513 by (2); ETT Type: Cuffed; Mir Arcos MD Da mron, Joseph M, MD ETT Size: 7.5 mm; Indirect:Video (elective VL); Attempts: 1; Laryngoscopy Grade: 1; ETT Placement Verified By: Auscultation, Visual, Capnometry; Secured at Teeth: 24 cm; Inserted by: MD Josselyn Arterial Line 09/29/21; 1322; radial 09/29/21 1322 by 09/29/21 1630 by artery, left; 20 gauge; Reynaldo Nieves MD Cou ghlin, Rebecca L, Ultrasound Guidance; Yes RN - US guidance used but Image NOT saved; continuous blood pressure monitoring, frequent blood gas measurement; nitin castro; Sterile Prep, Sterile Gloves; no longer indicated; 09/29/21; 1630 documented in this encounter Social History Tobacco Use Types Packs/Day Years [...] on file documented as of this encounter OR Notes Anesthesia Postprocedure Evaluation - Abdon Mccauley MD - 09/29/2021 3:14 PM EDT Department of Anesthesiology Post-procedure Note Patient: Lalo Guerra Procedure Summary Date: 09/29/21 Room / Location: [facility] OR [facility] MAIN OR Anesthesia Start: 1259 Anesthesia Stop: 1513 Procedure: EMBOLECTOMY OR THROMBECTOMY, FEMOROPOPLITEAL, AORTOILIAC ARTERY BY LEG INCISION (WRVU 19.48) (Left Leg Lower) Diagnosis: (left leg ischemia) Surgeons: Joselito Washburn MD Responsible Provider: Mir Arcos MD Anesthesia Type: general ASA Status: 3 - Emergent All Anesthesia Providers: Anesthesiologist: Mir Arcos MD Manager Aerospace: Abdon Mccauley MD Vitals Value Taken Time BP Temp Pulse Resp SpO2 Pain Level Patient Location: PACU/[facility] Level of Consciousness: Awake and Alert Pain Management: Satisfactory Analgesia PONV: None Cardiovascular Status: At Baseline and Hemodynamically Stable Respiratory Status: At Baseline and Supplemental O2 (NC or FM) Postoperative Fluid Status: Intravascular EUvolemia Possible Anesthetic Complications: NONE apparent at time of evaluation Final Primary Anesthesia Type: General (The anesthetic type performed was the same as planned.) Comments: Abdon Mccauley MD Anesthesia Preprocedure Evaluation - Mir Arcos MD - 09/29/2021 12:52 PM EDT Pre-Anesthesia Evaluation for: Lalo Guerra a 76 y.o. male. Procedure(s): EMBOLECTOMY OR THROMBECTOMY, FEMOROPOPLITEAL, AORTOILIAC ARTERY BY LEG INCISION (WRVU 19.48) Patient Active Problem List Diagnosis Date Noted ??? 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 ASCVD (arteriosclerotic cardiovascular disease) 10/24/2015 ??? PAF (paroxysmal atrial fibrillation) 10/24/2015 ??? Essential hypertension 10/24/2015 ??? Hyperlipidemia 10/24/2015 ??? Hypothyroidism 10/24/2015 ??? Presence of permanent cardiac pacemaker 10/24/2015 ??? Sick sinus syndrome 10/24/2015 Past Medical History: Diagnosis Date ??? ASCVD [...] ??? PACEMAKER IMPLANT ? ? PRG CATH PLKY LEFT HEART CATH & ARTS W/INJ & ANGIO IMG S&I N/A 09/10/2021 CORONARY ANGIOGRAPHY; W LHC,POSSIBLE PCI performed by Vinod Hassan MD at [facility] CATH LABS ??? PRO CABG, ARTERIAL, SINGLE N/A 09/27/2021 @CABG, USING ARTERIAL GRAFT;SINGLE ARTERIAL GRAFT (WRVU 33.75) performed by Abdon Dawson MD at [facility] MAIN OR ??? PRO CABG, ARTERY-VEIN, THREE N/A 09/27/2021 @CABG; 3 VENOUS GRAFTS & ARTERIAL GRAFT (WRVU 10.49) performed by Abdon Dawson MD at [facility] MAIN OR ??? PRO ENDOSCOPY W/VIDEO-ASST VEIN HARVEST, CABG N/A 09/27/2021 ENDOSCOPIC HARVEST VEIN(S) FOR CABG (WRVU 0.31) performed by Abdon Dawson MD at [facility] MAIN OR Social History Tobacco Use ??? Smoking status: Former Smoker Types: Cigarettes Quit date: 06/11/1992 Years since quittin.3 ??? Smokeless tobacco: Former User Quit date: 1969 ??? Tobacco comment: quit in 1992 Substance Use Topics ??? Alcohol use: No Comment: QUIT IN 1978 Social History Substance and Sexual Activity Drug Use No Allergies Allergen Reactions ??? Lipitor [Atorvastatin] Other (See Comments) myositis ??? Amiodarone Bluish discoloration on face Medications: MAR and/or home medications have been reviewed. Physical Exam: Preprocedure Vitals Current as of 08/21/22 1252 BP: 154/79 Pulse: 98 Resp: SpO2: Temp: Height: 170.2 cm (5' 7) (09/27/21) Weight: 113.3 kg (249 lb 12.5 oz) (09/29/21) BMI: 39.12 IBW: 66.1 kg (145 lb 12.2 oz) Last edited 09/29/21 0840 by JUAQUIN Airway Assessment: Mallampati: II TM distance: >3 FB Neck ROM: full Cardiovascular Assessment: Rhythm: irregular Rate: normal Pulmonary Assessment: breath sounds clear to auscultation Dental Assessment: (+) upper dentures Misc Assessment: Last Filed Perioperative Cognitive Screening Value Time User AD8 Total Score: 0 09/24/2021 1:00 PM Sadia Mireles RN AD8 Informant: Other Informant 09/24/2021 1:00 PM Sadia Mireles RN CFS Frailty Score: 4 09/24/2021 1:00 PM Sadia Mireles RN Anesthesia Plan: ASA 3 emergent general, with a(n) intravenous induction Addendum 09/29/2021 (MD Josselyn): 76yo with cold L leg for revasc. Onset acutely this AM. 2 days s/p CABGx4 (post pump EF>55% no sig valve issues). Has not been anticoag since last week. Risks/plan reviewed. Pt requests to proceed with emergent revasc Region - Other Informed Consent: Anesthetic plan and risks discussed with patient. Plan discussed with resident. Anesthesia Screening documented in this encounter Plan of Treatment Upcoming Encounters Date Type Specialty Care Team Description 11/05/2021 Appointment Radiology 11/05/2021 Office Visit Cardiac Surgery Abdon Dawson MD [facility] [address] [place] [id number] (Wo rk) documented as of this encounter Visit Diagnoses Not on filedocumented in this encounter Administered Medications Inactive Administered Medications - up to 3 most recent administrations Medication Order MAR Action Action Date Dose Rate Site ceFAZolin (Ancef) 1 g in dextrose 5% Given 09/29/2021 1:26 PM ED T 2 g 50 mL infusion Intravenous, PRN, Starting on 09/29/21 at 1326, Until 09/29/21 at 1513, Administer over 30 Minutes, Anesthesia Intra-op dexAMETHasone (Decadron) injection Given 09/29/2021 1:55 PM EDT 4 mg Intravenous, PRN, Starting on 09/29/21 at 1355, Until 09/29/21 at 1513, Anesthesia Intra-op, Routine dexmedeTOMIDine (Precedex) Rate/Dose 09/29/2021 2:16 0.2 mcg/kg/hr 5 .665 (4 mcg/mL) in sodium Change PM EDT mL/hr chloride 0.9% 50 mL infusion Intravenous, CONTINUOUS PRN, Starting on 09/29/21 at 1330, Until 09/29/21 at 1513, Anesthesia Intra-op Rate/Dose Change 09/29/2021 1:52 PM EDT 0.4 mcg/kg/hr 11.33 mL/hr New Bag 09/29/2021 1:30 PM EDT 0.2 mcg/kg/hr 5.665 mL/hr heparin (porcine) (1,000 units/mL) Given 09/29/2021 1:58 PM EDT 11,000 Units injection Intravenous, PRN, Starting on 09/29/21 at 1358, Until 09/29/21 at 1513, Anesthesia Intra-op, Routine HYDROmorphone (Dilaudid) (2 mg/mL) multi-dose Given 3:05 PM EDT 0.4 mg injection solution Intravenous, PRN, Starting on 09/29/21 at 1350, Until 09/29/21 at 1513, Anesthesia Intra-op, Routine Given 09/29/2021 1:50 PM EDT 0.6 mg lactated ringers infusion New Bag 09/29/2021 1:01 PM EDT Intravenous, CONTINUOUS PRN, Starting on 09/29/21 at 1301, Until 09/29/21 at 1513, Anesthesia Intra-op lactated ringers infusion New Bag 09/29/2021 1:22 PM EDT Intravenous, CONTINUOUS PRN, Starting on 09/29/21 at 1322, Until 09/29/21 at 1513, Anesthesia Intra-op NORepinephrine (Levophed) (16 New Bag 09/29/2021 1:25 PM 2 mcg/min 7.5 mL/hr mcg/mL) in dextrose 5% 250 mL EDT infusion Intravenous, CONTINUOUS PRN, Starting on 09/29/21 at 1325, Until 09/29/21 at 1513, Anesthesia Intra-op, Routine ondansetron (pf) (Zofran) (2 mg/mL) inje ction Given 09/29/2021 1:55 PM EDT 4 mg Intravenous, PRN, Starting on 09/29/21 at 1355, Until 09/29/21 at 1513, Anesthesia Intra-op, Routine PHENYLephrine in NS (PF) (TAMERA-SYNEPHRINE) 0.8 Given 2:36 PM EDT 80 mcg mg/10 mL (80 mcg/mL) multi-dose injection Syrg Intravenous, PRN, Starting on 09/29/21 at 1418, Until 09/29/21 at 1513, Anesthesia Intra-op, Routine Given 09/29/2021 2:32 PM EDT 80 mcg Given 09/29/2021 2:18 PM EDT 80 mcg propofoL (Diprivan) 10 mg/mL bolus injection Given 1:17 PM EDT 50 mg (Anesthesia) Intravenous, PRN, Starting on 09/29/21 at 1315, Until 09/29/21 at 1513, Anesthesia Intra-op Given 09/29/2021 1:15 PM EDT 100 mg protamine (10 mg/mL) injection Given 09/29/2021 2:35 PM EDT 50 mg Intravenous, PRN, Starting on 09/29/21 at 1435, Until 09/29/21 at 1513, Anesthesia Intra-op, Routine rocuronium (Zemuron) (10 mg/mL) multi-dose Given 09/29/2021 2:23 PM EDT 30 mg injection Intravenous, PRN, Starting on 09/29/21 at 1317, Until 09/29/21 at 1513, Anesthesia Intra-op, Routine Given 09/29/2021 1:17 PM EDT 70 mg sugammadex (Bridion) 100 mg/mL injection Given 09/29/2021 3:05 PM EDT 200 mg Intravenous, PRN, Starting on 09/29/21 at 1505, Until 09/29/21 at 1517, Anesthesia Intra-op, Routine documented in this encounter Care Teams General Practitioner Relationship Specialty Start Date End Date Jesusita Law MD PCP - General Family Medicine 09/03/[address] [place] [address] documented as of this encounter
--- OUTSIDE RECORDS SUMMARY | 2021-10-25 11:04 | XMS_ITS | Encounter Summary ---
:1945 Author Organization [facility] [place] [address] Care Team Providers Name Role Phone Jesusita Law MD Primary Care Provider [phone] Reason for Visit Diagnostic Test (Routine) - Closed Specialty Diagnoses / Procedures Referred By Contact Refer red To Contact Radiology Diagnoses Abnormal digital rectal exam Lavern Membreno MD [facility] Rad Mri Procedures MRI Pelvis wwo (Prostate) [address] [place] [address] [place] [address] Referral ID Status Reason Start Date Expiration Date Visits V isits Requested Authorized [id number] Closed Specialty 12/16/2019 06/14/2021 1 1 Service Requested Encounter Details Date Type Department Care Team Description 02/29/2020 Hospital Encounter MRI at [facility] Lavern Membreno, Sick sinus syndrome; [facility] Presence of permanent cardiac pac[address] [place] [address] [place], [place] [phone] Social History Tobacco Use Types Packs/Day Years Used Date Former Smoker Smokeless Tobacco: Former User Q uit: 1970 Comments: quit in 1992 Alcohol Use Standard Drinks/Week Comments No 0 (1 standard drink = 0.6 oz pure alcoho l) Sex Assigned at Date Recorded Not on file documented as of this encounter Last Filed Vital Signs Vital Sign Reading Time Taken Comments Blood Pressure 139/81 02/29/2020 4:50 PM EST Pulse 70 02/29/2020 4:50 PM EST Temperature - - Respiratory Rate 18 02/29/2020 4:50 PM EST Oxygen Saturation 96% 02/29/2020 4:50 PM EST Inhaled Oxygen Concentration - - Weight - - Height - - Body Mass Index - - documented in this encounter Medications at Time of Discharge Medication Sig Dispensed Refills Start Date End Date tamsulosin (Flomax) 0.4 mg TAKE 1 CAPSULE BY 0 Capsule MOUTH TWICE DAILY gabapentin (Neurontin) 100 Take 200 mg by 0 01/11 mg Capsule mouth nightly as needed. gemfibrozil (LOPID) 600 mg Take 300 mg by 0 Tablet mouth 2 times daily. levothyroxine (Synthroid) Take 125 mcg by 0 100 mcg Tablet mouth daily. pravastatin (PRAVACHOL) 80 Take 80 mg by mouth 0 mg Tablet nightly. omeprazole (PriLOSEC) 20 Take 20 mg by mouth 0 09/26/2021 mg Capsule, Delayed daily as needed. Release(E.C.) furosemide (Lasix) 20 mg Take 20 mg by mouth 0 10/03/2021 Tablet daily. aspirin 81 mg Tablet, Take 1 tablet by 30 tablet 3 10/25/19 16 09/09/2021 Delayed Release (E.C.) mouth daily. clopidogrel (PLAVIX) 75 mg Take 1 tablet by 90 tablet 3 09/10/2021 Tablet mouth daily. aclidinium bromide 400 Inhale into the 0 09/24/2021 mcg/actuation Aerosol lungs. Powdr Breath Activated Mometasone-Formoterol Inhale 1 puff into 0 09/24/2021 (Dulera MDI) 100-5 the lungs 2 times mcg/actuation HFA Aerosol daily. Inhaler warfarin (COUMADIN) 1 mg Take 1 mg by mouth 0 10/03/2021 Tablet daily. DILTiazem (CARDIZEM CD) Take 180 mg by 0 09/24/2021 240 mg Capsule, Sust. mouth daily. Release 24 hr nitroGLYcerin (NITROSTAT) Place 0.4 mg under 0 10/03/2021 0.4 mg Tablet, Sublingual the tongue every 5 minutes as needed for Chest pain. meTOPROLOL tartrate Take 25 mg by mouth 0 09/09/2021 (LOPRESSOR) 25 mg Tablet 2 times daily. documented as of this encounter Progress Notes Frannie Cobian APRN - 02/29/2020 10:14 AM EST Cardiac Device Interrogation - MRI Lalo Guerra [id number] 02/29/2020 History: 74 y.o. male with history of complete heart block and atrial arrhythmias (AT, AF, AFl) s/p Medtronic dual chamber pacemaker 06/27/2019 presents for pelvic MRI scan. He is followed by Dr. Xavier Real, cardiology in [place], [place]. He is in permanent atrial fibrillation and takes warfarin. 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 Underlying Rhythm: atrial fibrillation rate 45 bpm Ventricular Episodes: 0 Ventricular Pacin.4% (MVP off) HR Histogram: left-shifted graph predominate rates 60s bpm Battery and Leads (PRE-scan) Voltage: not reported Status: ~8.5 years Magnet Rate: ---bpm Charge Time: -sec Impedances (ohms) Sensing (mV) Thresholds HV RA RV LV RA RV LV RA RV LV - 551 456 - --- 2.0 - --- 1.75V @ 0.4ms - Battery and Leads (POST-scan) Voltage: not reported Status: not reported Magnet Rate: ---bpm Charge Time: -sec Impedances (ohms) Sensing (mV) Thresholds HV RA RV LV RA RV LV RA RV LV - 551 437 - --- 1.5 - --- 1.75V @ 0.4ms - Comments: - Pocket incision is well healed without signs or symptoms of infection - Programming changes ?? Prior to MRI, SureScan mode programming ON, pacing mode VOO @ 70 bpm ?? Post MRI, SureScan mode programming OFF, returning to baseline programming - Device is functioning appropriately - Follow up: as scheduled in device clinic in [place], [place] Frannie Cobian APRN 02/29/2020 Pager: [phone] documented in this encounter Plan of Treatment Upcoming Encounters Date Type Specialty Care Team Description 11/05/2021 Appointment Radiology 11/05/2021 Office Visit Cardiac Surgery Abdon Dawson MD [facility] [address] [place], [place] [address] (Wo rk) documented as of this encounter Procedures Procedure Name Priority Date/Time Associated Diagnosis Comme nts MRI PELVIS WWO Routine 02/29/2020 5:33 PM Abnormal digital Res ults for this (PROSTATE) EST rectal exam procedure are i n the results section. documented in this encounter Results MRI Pelvis wwo (Prostate) (02/29/2020 5:33 PM EST) Anatomical Region Laterality Modality Pelvis Magnetic Resonance Specimen (Source) Anatomical Location Collection Method / Collectio n Time Received Time / Laterality Volume Impressions 03/01/2020 2:02 PM EST No focal lesions. ??BPH. PI-RADS 2. Clin ically significant cancer is unlikely to be present. PI-RADS v2.1 Assessment Categories PI-RADS 1 -- Very low (clinically signif icant cancer is highly unlikely to be present) PI-RADS 2 -- Low (clinically significant cancer is unlikely to be present) PI-RADS 3 -- Intermediate (the presence of clinically significant cancer is equivocal) PI-RADS 4 -- High (clinically significan t cancer is likely to be present) PI-RADS 5 -- Very high (clinically signi ficant cancer is highly likely to be present) References: Mehraliiona S1, Missael JH1, Loja S1, Smi th C1, Villarreal J1, Czarniecki M1, Gold S1, Paredes G1, Rayn K1, Lon MJ1, Murtaza BJ1, Chester PA1, Juan Antonio PL1, Martha B1. ??A Grading System for the Assessment of Ris k of Extraprostatic Extension of Prostate Cancer at Multiparametric MRI. Radiology. 2019 Mar;290(3):709-719. doi: 10.1148/radiol.1905012714. Epub 2018Mar 02. I have personally reviewed the image(s) and the resident's interpretation and agree with the findings, Tejas caceres MD at 03/01/2020 2:02 PM Thank you for letting us participate in the care of this patient. For questions regarding this report, please contact joselyn number below. ? Electronically signed by: Tejas reynolds MD, [facility] ([phone]), at 03/01/2020 2:02 PM Narrative 03/01/2020 2:02 PM EST EXAMINATION: MRI PELVIS WWO (PROSTATE) CLINICAL HISTORY: Normal PSA and abnorma l SHASHANK, pt is claustophobic and has been prescribed valium REASON FOR PROSTATE EXAM:Abnormal SHASHANK HAS PATIENT HAD PREVIOUS BIOPSY?:No MOST RECENT PSA LEVEL:0.454 TECHNIQUE: Multiparametric MRI of the pr ostate prior to and following IV administration of 22 cc of Dotarem contr ast. ?? QUALITY: Compromized by motion artifact on the T2 sequences. COMPARISON: None FINDINGS: Prostate dimensions: 3.9 x 2.5 x 3.7cm. Estimated prostate volume: 18.8cc (X x Y x Z x 0.52) PSA density: 0.02 (PSA/prostate volume > 0.15 susp, 0.25 highly susp) Peripheral zone: No focal lesions. T2: Linear or wedge-shaped hypointensiti es. PI-RADs: 2. DWI: ??No abnormality on ADC and high b- value DWI. PI-RADs: 1. DCE-MRI: (-) No early arterial enhanceme nt.. ? Combined PI-RADs: 1. Transition zone: No focal lesions T2: Typical encapsulated and homogenous circumscribed nodules with intervening areas of homogenous mildly hypointense s ignal. PI-RADs: 2. DWI: ??Moderately hypointense of ADC and moderately hyperintense on high b-value DWI. PI-RADs: 3. DCE-MRI: ??(-) No early arterial enhance ment.. ? Combined PI-RADs: 2. Extraprostatic disease: Seminal vesicle involvement:No Lymphadenopathy:No Sphincter involvement:No Bladder involvement:No Osseous metastases: No . MRI-derived Extraprostatic extension ris k: None Other findings: Extensive colonic divert iculosis without evidence of acute diverticulitis. Procedure Note Tejas Suarez MD - 03/01/2020Format ting of this note might be different from the original. EXAMINATION: MRI PELVIS WWO (PROSTATE) CLINICAL HISTORY: Normal PSA and abnorma l SHASHANK, pt is claustophobic and has been prescribed valium REASON FOR PROSTATE EXAM:Abnormal SHASHANK HAS PATIENT HAD PREVIOUS BIOPSY?:No MOST RECENT PSA LEVEL:0.454 TECHNIQUE: Multiparametric MRI of the pr ostate prior to and following IV administration of 22 cc of Dotarem contr ast. QUALITY: Compromized by motion artifact on the T2 sequences. COMPARISON: None FINDINGS: Prostate dimensions: 3.9 x 2.5 x 3.7cm. Estimated prostate volume: 18.8cc (X x Y x Z x 0.52) PSA density: 0.02 (PSA/prostate volume > 0.15 susp, 0.25 highly susp) Peripheral zone: No focal lesions. T2: Linear or wedge-shaped hypointensiti es. PI-RADs: 2. DWI: No abnormality on ADC and high b-va lue DWI. PI-RADs: 1. DCE-MRI: (-) No early arterial enhanceme nt.. Combined PI-RADs: 1. Transition zone: No focal lesions T2: Typical encapsulated and homogenous circumscribed nodules with intervening areas of homogenous mildly hypointense s ignal. PI-RADs: 2. DWI: Moderately hypointense of ADC and m oderately hyperintense on high b-value DWI. PI-RADs: 3. DCE-MRI: (-) No early arterial enhanceme nt.. Combined PI-RADs: 2. Extraprostatic disease: Seminal vesicle involvement:No Lymphadenopathy:No Sphincter involvement:No Bladder involvement:No Osseous metastases: No . MRI-derived Extraprostatic extension ris k: None Other findings: Extensive colonic divert iculosis without evidence of acute diverticulitis. IMPRESSION No focal lesions. BPH. PI-RADS 2. Clinic ally significant cancer is unlikely to be present. PI-RADS v2.1 Assessment Categories PI-RADS 1 -- Very low (clinically signif icant cancer is highly unlikely to be present) PI-RADS 2 -- Low (clinically significant cancer is unlikely to be present) PI-RADS 3 -- Intermediate (the presence of clinically significant cancer is equivocal) PI-RADS 4 -- High (clinically significan t cancer is likely to be present) PI-RADS 5 -- Very high (clinically signi ficant cancer is highly likely to be present) References: Mehraliiona S1, Missael JH1, Loja S1, Smi th C1, Villarreal J1, Czarniecki M1, Gold S1, Paredes G1, Rayn K1, Forrest MJ1, Wood BJ1, Briggs PA1, Choamandae PL1, Turkyaima B1. A Grading System for the Assessment of Ris k of Extraprostatic Extension of Prostate Cancer at Multiparametric MRI. Radiology. 2019 Apr;290(3):709-719. doi: 10.1148/radiol.9214816063. Epub 2018Mar 02. I have personally reviewed the image(s) and the resident's interpretation and agree with the findings, Tejas caceres MD at 03/01/2020 2:02 PM Thank you for letting us participate in the care of this patient. For questions regarding this report, please contact [facility] number below. Electronically signed by: Tejas reynolds MD, [facility] ([phone]), at 03/01/2020 2:02 PM Lavern Membreno MD IMG MRI ORDERABLES documented in this encounter Visit Diagnoses Diagnosis Abnormal digital rectal exam Other abnormal clinical finding Sick sinus syndrome Sinoatrial node dysfunction Presence of permanent cardiac pacemaker Cardiac pacemaker in situ documented in this encounter Care Teams Mathematical Sciences Professor Relationship Specialty Start Date End Date Jesusita Law MD PCP - General Family Medicine 10/24/15 09/02/21 documented as of this encounter
--- OUTSIDE RECORDS SUMMARY | 2021-10-25 11:04 | XMS_ITS | Encounter Summary ---
:1945 Author Organization [facility] [place] [address] Care Team Providers Name Role Phone Jesusita Law MD Primary Care Provider [phone] Encounter Details Date Type Department Care Team Description 09/10/2021 Hospital Encounter Same Day Program at Vinod Munoz Screening for cardiovascular condition; Eveline Alvarado MD Abnormal stress test; [facility] Chest pain, unspecified type [facility] [address] CARDIOLOGY [place], [place] DEPT. [id number] [place], [place] [phone] [id number] Social History Tobacco Use Types Packs/Day Years [...] Sign Reading Time Taken Comments Blood Pressure 147/69 09/10/2021 2:15 PM EDT Pulse 63 09/10/2021 1:15 PM EDT Temperature 36.2 ??C (97.2 ??F) 09/10/2021 1:47 PM EDT Respiratory Rate 16 09/10/2021 2:15 PM EDT Oxygen Saturation 98% 09/10/2021 2:15 PM EDT Inhaled Oxygen Concentration - - Weight 116.1 kg (256 lb) 09/10/2021 9:45 AM EDT Height 170.2 cm (5' 7) 09/10/2021 9:45 AM EDT Body Mass Index 40.1 09/10/2021 9:45 AM EDT documented in this encounter Discharge Instructions Discharge InstructionsDarron Radford RN - 09/10/2021 1:49 PM EDT Radial Access for Heart Cath Activity If you are discharged the same day as your procedure, do not drive yourself home. Arrange to have another person drive. You may walk around when you get home, but keep your activity at a minimum until the morning. Try to avoid bending your wrist for the first 12-24 hours after the procedure to allow the artery tofully heal. Do not participate in active sports for 48 hours. Do not lift anything greater than 5 lbs. You may engage in sexual activity after 48 hours. Catheter Insertion Area Care Take the dressing off of the catheter insertion site the morning following the procedure. Leave the site open to air. If the site is oozing you may cover it with a band aid. You may take a shower if you wish. Look for signs of infection over the next several days. It is uncommon to have any visible blood at the site, any obvious bleeding is abnormal. A bruise around the wrist or small lump under the skin is normal: they generally disappear in 3-5 days. Expect some mild tenderness over the area where the catheter was inserted. You will notice this after the local anesthetic (numbing medicine) wears off. This should improve during the 24-48 hours afterthe procedure. You may use acetaminophen (tylenol) if needed. Contact your doctor if the discomfort w orsens. Problems to Watch for If there is bright red blood flowing from the catheter insertion area: *stop what you are doing *hold pressure steadily on the area for 15 minutes *call for help *if the bleeding does not stop in 15 minutes call 911 for an ambulance. If there is swelling with black and blue color at the catheter insertion site, there may be bleeding inside. Contact the doctor if there is any increase in size. Look at the insertion site for the first few days at home. Signs of infection are: *redness *swelling *yellow, white, green or brown foul smelling drainage. *increased soreness If you think there is an infection, take your temperature. Then call your doctor. The limb on the side where you had your catheterization should look and feel normal in color, sensation, and temperature. If your hand or fingers become cool, pale, blue or change color contact your doctor. If you are having numbness or tingling in your fingers or hand contact your doctor. If you feel faint or dizzy, lie down with your feet elevated. Have someone call the doctor. If you are alert, drink fluids. How to Deal with Chest Pain If you had only the cardiac catheterization, treat any angina or chest discomfort as instructed. Stop what you are doing, and sit or lie down. If prescribed, take nitroglycerin under your tongue. If the angina isn't relieved, take another nitroglycerin in 5 minutes. After another 5 minutes, a third nit roglycerin may be taken. If the angina isn't improved you should call for an ambulance to bring you to the nearest hospital emergency room. If your angina is more frequent or severe than before, contact your doctor. We usually would not expect you to have angina after an angioplasty. If you do get angina, treat it as you did before, but also contact your doctor. Return to Work The doctor will usually have told you when to return to work. If you do not perform heavy physical labor, most people can return to work in a few days. Diet Follow your previous diet unless otherwise instructed. Cardiac Risk Factor If you have coronary artery disease, it is important that you help control it by reducing your cardiac risk factors. If you smoke, we urge you to stop now. If you think this is going to be a problem, let us know so that we may help you. We have dieticians who can help you learn about a low fat, low cholesterol diet. Cardiac rehabilitation programs can help you set up a regular exercise program. Work with your doctor if you have high blood pressure or sugar diabetes to keep these under control. Medications Take your usual medications medication changes If you are taking medications prescribed by your doctor, do not take any [id number] medicines or herbal preparations without first discussing this with your doctor or pharmacist. There is the possibility of side effects and interactions when these are combined. Follow Up Care Who to call with questions or problems If there are any questions or problems that you think might be related to your cardiac cath or angioplasty, contact the transportation associate environmental laboratory technician by calling [facility] at . Patient InstructionsAnnalise Dimas MD - 09/10/2021 11:29 AM EDT Cardiac Cath Provider Discharge Instructions We saw progression of your coronary artery disease in the left sided arteries. These blockages were not amenable to stent placement so we recommend following up with Cardiac Surgery to assess for bypass surgery. Call your doctor if: Chest pain, dyspnea, pain or swelling in legs occurs. If you have non-emergent questions between now and the time of your follow up appointments: During 8am-5pm Thursday through Thursday call [phone] and ask to speak to the cardiology clinic triage nurse. All other times call [phone] and ask to speak to the water systems engineer environmental laboratory technician. Return to work: 1 day Driving: No driving 1 day Diet: Heart healthy, low carbohydrate Follow up Appointments: - Follow up with your Wood Model Maker and Cardiac Surgery - Your Primary Wood Model Maker was updated with the results of your angiogram documented in this encounter Medications at Time of Discharge Medication Sig Dispensed Refills Start Date End Date potassium chloride SA TAKE 2 TABLETS BY 0 022 (Klor-con) 10 mEq Tab MOUTH ONCE DAILY FOR Sust.Rel. POTASSIUM Particle/Crystal metFORMIN XR (Glucophage Take 1,000 mg by [...] 0 mg Tablet 2 times daily. levothyroxine (Synthroid) Take 125 mcg by 0 100 mcg Tablet mouth daily. pravastatin (PRAVACHOL) Take 80 mg by mouth 0 80 mg Tablet nightly. potassium chloride Take 20 mEq by mouth 0 10/03/2021 (MICRO-K) 10 mEq Capsule, daily. Sustained Release omeprazole (PriLOSEC) 20 Take 20 mg by mouth 0 09/26/2021 mg Capsule, Delayed daily as needed. Release(E.C.) furosemide (Lasix) 20 mg Take 20 mg by mouth 0 10/03/2021 Tablet daily. aclidinium bromide 400 Inhale into the 0 09/24/2021 mcg/actuation Aerosol lungs. Powdr Breath Activated Mometasone-Formoterol Inhale 1 puff into 0 09/24/2021 (Dulera MDI) 100-5 the lungs 2 times mcg/actuation HFA Aerosol daily. Inhaler warfarin (COUMADIN) 1 mg Take 1 mg by mouth 0 10/03/2021 Tablet daily. DILTiazem (CARDIZEM CD) Take 180 mg by mouth 0 09/24/2021 240 mg Capsule, Sust. daily. Release 24 hr nitroGLYcerin (NITROSTAT) Place 0.4 mg under 0 10/03/2021 0.4 mg Tablet, Sublingual the tongue every 5 minutes as needed for Chest pain. documented as of this encounter Progress Notes Darron Radford RN - 09/10/2021 2:38 PM EDT Patient alert and oriented, vital signs stable. Reviewed discharge instructions; patient and spouse verbalized understanding and had no further questions. Copy of instruction sheet with contact numbersfor questions/concerns provided. Pain assessment documented. Sling applied to RUE and patient escorted out of department via wheelchair with Geovany QUEZADA. documented in this encounter H&P Notes Bubba Dimas DO - 09/09/2021 10:25 PM EDT Images from the original note were not included. [facility] [address] [place], [place] [id number] SAME DAY CARDIAC CATHETERIZATION LAB H&P ID: Lalo Guerra is a 76 y.o. male with past medical history of CAD s/p DESx2 to RCA, atrial fibrillation on warfarin, sick sinus syndrome s/p PPM, HTN, T2DM who presents for diagnostic coronary angiogram after an episode of chest pain with subsequent positive nuclear stress test. Lalo Guerra has no planned upcoming surgeries. No recent or ongoing bleeding events. No black stools. Physical Exam: There were no vitals taken for this visit. Gen: Pleasant male in no apparent distress, able to lay flat. Cardiac: Regular rate, S1/S2 normal character and amplitude, no murmurs, rubs, or gallops. Pulm: Clear to auscultation bilaterally, no increased work of breathing. Ext: Palpable radial and femoral pulses bilaterally. Palpable DP pulses bilaterally. Neuro: Grossly normal neurologic exam without apparent focal deficit. ASA: 2: Patient with mild systemic disease Mallampati: III: only the base of the uvula can be seen Recent Labs: Recent CBC: No results for input(s): WBC, HGB, HCT, PLATELET in the last 7068 hours. Recent BMP: No results for input(s): NA, K, CL, CO2, BUN, CREATININE in the last 7068 hours. : 12-Lead ECG reviewed in same day notable for Previous cardiac diagnostic studies: General consent statement: The indications, expected benefits, and potential risks of heart catheterization were reviewed in detail with the patient. The potential for , heart attack, stroke, kidney failure, hemorrhage, allergic reaction, vascular complications and infection were reviewed in detail. The possibility of stenting and other percutaneous intervention, with associated risk, was reviewed. The possible need for emergent coronary artery bypass surgery was reviewed. Alternatives were discussed and the patient's questions were answered in full. Following this discussion, the patient consented to the procedure and signed a form attesting to this, which is in the chart. Patient is full code. Plan: -no apparent contraindication to DAPT, patient denies upcoming or planned procedures/operations, anddenies ongoing or recent bleeding events -proceed as planned -consent signed Annalise Dimas MD Wiper Blender 09/09/2021 documented in this encounter Miscellaneous Notes Brief Op Note - Vinod Munoz MD - 09/10/2021 11:30 AM EDT Preliminary Cardiac Catheterization Procedure Note: Patient Name: Lalo Guerra : [id number] MR#: [id number] Case Date: 09/10/2021 Plc Engineer: Surgeon(s) and Role: * Vinod Munoz MD - Primary * Annalise Dimas MD - Fellow * Bubba Dimas DO - Fellow Preoperative diagnosis: Screening for cardiovascular condition [Z13.6], Abnormal stress test [R94.39], Chest pain, unspecified type [R07.9] Postoperative diagnosis: * stable* Procedure(s) performed: Left heart cath Coronary angiography Access: right radial A time-out was conducted prior to the start of the procedure to verify the correct patient and procedure, procedure location, and all relevant critical information. 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 The patient tolerated the procedures smoothly and was transferred from the cardiac catheterization lab to the next level of care in stable condition. No evident early complications. Full report to follow. Vinod Munoz MD documented in this encounter Plan of Treatment Upcoming Encounters Date Type Specialty Care Team Description 11/05/2021 Appointment Radiology 11/05/2021 Office Visit Cardiac Surgery Abdon Dawson MD [facility] [place], [place] [address] (Wo rk) documented as of this encounter Procedures Procedure Name Priority Date/Time Associated Diagnosis Comme nts CARDIAC CATHETERIZATION Routine 09/10/2021 11:25 Screening for [...] Abnormal stress test Chest pain, unspecified type BMP W/FASTING GLUCOSE Routine 09/10/2021 10:05 Re sults for this AM EDT procedure are i n the results section. HEMOGRAM Routine 09/10/2021 10:05 Results for this AM EDT procedure are i n the results section. DIFFERENTIAL, AUTOMATED Routine 09/10/2021 10:05 Results for this AM EDT procedure are i n the results section. HC PROTHROMBIN TIME STAT 09/10/2021 10:05 Resu lts for this AM EDT procedure are i n the results section. HC CBC,PLT & AUTO DIFF Routine 09/10/2021 10:05 AM EDT EKG 12-LEAD Routine 09/10/2021 10:04 Screening for Results fo r this AM EDT cardiovascular procedure are in condition the results Abnormal stress test section. Chest pain, unspecified type POCT GLUCOSE Routine 09/10/2021 9:45 Results for this AM EDT procedure are i n the results section. documented in this encounter Results CARDIAC CATHETERIZATION (09/10/2021 11:25 AM EDT) Anatomical Region Laterality Modality Other Specimen (Source) Anatomical Location Collection Method / Collectio n Time Received Time / Laterality Volume Narrative 09/10/2021 11:54 AM EDT ?[facility] ? Cardiac Cathete rization/Intervention Report ? Patient Name: Lalo Guerra ? Procedure Date: 09/10/2021 ? A #: [id number] ? Primary Physician: Tammy, Vinod Alvarado ? Case #: [id number] ? File Name: [id number] ? Catheterization Order Number: [id number] ? [facility] ? Final Report [place], [place] ? Patient Name: ? Lalo R. Gra mmo ?ID#: ?[id number] ? : ?1945 ? Procedure Date: ? September 10, 2021 ? Case #: ? [id number] ? Room: ? 6 ? Case Physician: ? Vinod Munoz M.D. ?Start: ?10:44 ?Fellow: ? Bubba Dimas D.O. ?Admission: ??09/10/2021 ?Annalise villa M.D. ? Referring Physician: ??Rich Reyes ? Procedures: ?* Coronary Angiography ?* Left Heart Catheterization ?* Arterial Blood Gases ? History ?Lalo Guerra is a 76 year old man. He [...] The CSHA ?clinical frailty scale is 3: Ma leonardo Leonard. ? Diagnostic Tests: ?Prior Coronary Angiography: [...] procedure was Elective. The indication for ?the rd lab technician visit is worsening angina. Chest pain symptom [...] room air. ?I-Stat: ? I-Stat was performed usi ng the I-Stat analyzer at 10:46: Na+: 140, [...] left heart ?catheterization and ABG. ? Vinod Alvarado Tammy, M.D. ? Electronically Signed by: Vinod Estrada s, M.D. ? Report Finalized: 09/10/2021 ??11:46 ? Report Last Ammended: 09/10/2021 ??14:35 ? Vinod Munoz MD CARDIAC CATH ORDERABLES (ABNORMAL) Point of Care Blood Gas Historical (09/10/2021 10:46 AM EDT) [facility] Method Time Signature POC pH 7.42 7.35 - [facility] POC PCO2 39 35 - 45 [facility] mmHg [facility] POC PO2 96 85 - 104 [facility]ATORY POC Base Excess 1.0 -3.0 - 3.0 [facility] K mmol/L [facility] POC HCO3 25.1 20.0 - [facility].[address] [facility] mmol/[facility] POC Sodium 140 135 - 145 [facility] mmol/L [facility] POC Potassium 3.8 3.5 - 5.0 [facility] mmol/L [facility] POC Ionized Ca 1.16 1.15 - [facility] 1.33 [facility] mmol/[facility] POC Hematocrit 40.0 40.0 - [facility] 51.0 % [facility] POC Calc Hgb 13.6 (L) 13.7 - [facility] 17.5 g/dL [facility] Comment: The calculation of hemoglobin f rom hematocrit assumes a normal MCHC. POC Bgas Loc CC LAB [facility] Specimen Anatomical Collection Method Collection Time Receive d Time (Source) Location / / Volume Laterality Blood 09/10/2021 10:46 09/12/2021 AM EDT 12:00 PM EDT Vinod Munoz MD CHEMISTRY ORDERABLES Performing Organization Address City/State/[place] [address] (ABNORMAL) Differential, Automated (09/10/2021 10:05 AM EDT) [facility] Method Time Signature Neutrophils % 59.7 % [facility] Neutr Abs (ANC) 4.87 1.70 - [facility] 6.10 [facility] x10(3)/[facility] LABORATORY Lymphocytes % 24.0 % [facility] Lymphocytes Abs 2.0 0.9 - 3.2 [facility] x10(3)/[facility] LABORATORY Monocytes % 12.0 % [facility] Monocyte Abs 1.0 (H) 0.3 - 0.9 [facility] x10(3)/[facility] LABORATORY Eosinophils % 2.8 % [facility] Eosinophils Abs 0.2 0.0 - 0.4 [facility] x10(3)/[facility] LABORATORY Basophils % 1.0 % [facility] Basophils Abs 0.1 0.0 - 0.1 [facility] x10(3)/[facility] LABORATORY Immature Gran % 0.50 % [facility] Comment: Immature granulocytes(IG's)percentage an d absolute count will include metamyelocytes, myelocytes, and promyelo cytes. Blood smears from CBCs yielding IG's will be scanned manually for concor dance. If this scan disagrees with the automated IG or if promyelocytes are not ed, a manual differential will be performed. Anna Gran Abs 0.04 0.00 - 0.04 x10(3)/[facility] Specimen Anatomical Collection Method Collection Time Receive d Time (Source) Location / / Volume Laterality Blood 09/10/2021 10:05 09/10/2021 AM EDT 10:20 AM EDT Resulting Agency Comment Spec In Lab Vinod Munoz MD HEMATOLOGY ORDERABLES Performing Organization Address City/State/[place] [address] (ABNORMAL) Hemogram (09/10/2021 10:05 AM EDT) Analysis Performed At Patho logist Time Signature WBC 8.2 4.0 - 9.5 [facility] x10(3)/[facility] LABORATORY RBC 4.81 4.58 - [facility] [address].54 [facility] x10(6)/[facility] LABORATORY Hemoglobin 13.6 (L) 13.7 - [facility] 16.5 g/dL [facility] Hematocrit 41.3 40.5 - [facility] 48.5 % [facility] MCV 85.9 82.9 - [facility] 93.1 [facility] LABORATORY MCH 28.3 27.5 - [facility] 32.1 pg [facility] MCHC 32.9 32.0 - [facility] 35.7 g/dL [facility] Platelets 230 145 - 357 [facility] x10(3)/[facility] LABORATORY RDWSD 43.5 36.0 - [facility] 45.0 [facility] RDWCV 13.8 11.4 - [facility] 13.8 % [facility] MPV 9.8 7.6 - 12.9 [facility] LABORATORY nRBC % Auto 0.0 % [facility] nRBC Abs Auto 0.000 0.000 - [facility] 0.[address] [facility] x10(3)/[facility] LABORATORY Specimen Anatomical Collection Method Collection Time Receive d Time (Source) Location / / Volume Laterality Blood 09/10/2021 10:05 09/10/2021 AM EDT 10:20 AM EDT Resulting Agency Comment Spec In Lab Vinod Munoz MD HEMATOLOGY ORDERABLES Performing Organization Address City/State/[place] [address] (ABNORMAL) Prothrombin Time (09/10/2021 10:05 AM EDT) P athologist Signature PT 13.2 (H) 9.4 - 12.5 [facility] LABORATORY INR 1.2 [facility] Comment: An INR <2.0 indicates [...] Comment Spec In Lab Vinod Munoz MD HEMATOLOGY ORDERABLES Performing Organization Address City/State/ZIP Code Phon e Number [place] [id number] (ABNORMAL) BMP w/fasting Glucose (09/10/2021 10:05 AM EDT) athologist Signature Glucose 141 (H) 65 - 99 [facility] Fasting mg/dL [facility] Comment: ?Fasting* Glucose Interpretive C [...] of Diabetes Mellitus, Position Statement from the [place] [employer]. ??Diabete s Care, Volume 33, Supplement 1, Feb 2009 BUN 17 10 - 20 mg/dL [facility] Creatinine 0.90 0.80 - 1.50 mg/dL [facility] Sodium 140 135 - 145 mmol/L [facility] Potassium 4.0 3.5 - 5.0 mmol/L [facility] Comment: Please note: ??Patients with WBC >100,00 0 may have falsely elevated Potassium levels. ??For accurate Potassium quantif ication in these patients send serum separator tube (gold top) for subsequent determinations. ??Contact the Clinical Chemistry Laboratory if there are any qu estions. Chloride 102 98 - 107 mmol/L [facility] CO2 26 22 - 31 mmol/L [facility] Anion Gap 12 5 - 15 mmol/L [facility] Calcium 9.1 8.5 - 10.5 mg/dL [facility] Estimated GFR 90 >=60 mL/min/1.73 m?? [facility] Comment: This patient's estimated GFR [...] Organization Address City/State/[place] [address] EKG 12 Lead (09/10/2021 10:04 AM EDT) Component Value Ref Range Test Analysis Performed Pathologis t Method Time At Signature Ventricular rate 66 BPM MUSE SYSTEM Atrial Rate 85 BPM MUSE SYSTEM QRS Duration 190 ms MUSE SYSTEM Q-T Interval 508 ms MUSE SYSTEM QTC Calculated 532 ms MUSE SYSTEM (Bezet) Calculated R Kimper -96 degrees MUSE SYSTEM Calculated T Kimper 96 degrees MUSE SYSTEM INTERPRETATION Ventricular-paced rhythm MUSE SYSTEM Abnormal ECG When compared with ECG of 25-OCT-2015 07:07, Electronic ventricular pacemaker has replaced Atrial fibrill ation Confirmed by MD Maritza, Chalino ([id number]) on 09/10/2021 12:29:56 PM Specimen Anatomical Collection Method Collection Time Receive d Time (Source) Location / / Volume Laterality 09/10/2021 10:04 09/10/2021 AM EDT 12:29 PM EDT Vinod Munoz MD ECG ORDERABLES Performing Organization Address City/State/ZIP Code Phon e Number MUSE SYSTEM POCT Glucose (09/10/2021 9:45 AM EDT) P athologist Signature POC Glucose 128 65 - 199 [facility] mg/dL [facility] Comment: Supplemental ranges: <140 mg/dL before meals <180 mg/dL all other times of the day Specimen Anatomical Collection Method Collection Time Receive d Time (Source) Location / / Volume Laterality Blood 09/10/2021 9:45 AM 9:45 EDT AM EDT Vinod Munoz MD POINT OF CARE TEST ORDERABLE S Performing Organization Address City/State/[place] [address] documented in this encounter Visit Diagnoses Diagnosis Screening for cardiovascular condition Screening for other and unspecified card iovascular conditions Abnormal stress test Other nonspecific abnormal cardiovascula r system function study Chest pain, unspecified type Screening for cardiovascular condition Screening for other and unspecified card iovascular conditions Abnormal stress test Other nonspecific abnormal cardiovascula r system function study Chest pain, unspecified type documented in this encounter Administered Medications Inactive Administered Medications - up to 3 most recent administrations Medication Order MAR Action Action Date Dose Rate Site sodium chloride 0.9% Continued Bag 09/10/2021 11:30 AM 100 mL/hr 100 mL/hr infusion EDT 100 mL/hr, Intravenous, CONTINUOUS, Starting on Thu09/10/21 at 1145, Until Thu09/10/21 at 1343, Recovery (Recovery-Hospital Unit) documented in this encounter Active and Recently Administered Medications Times are shown in EDT. Continuous Medication Order 09/08/2021 09/09/2021 09/10/2021 sodium chloride 0.9% infusion 10 00 (Due) 50 mL/hr, Intravenous, CONTINUOUS, Start ing on Thu09/10/21 at 1000, Until Thu09/10/21 at 1159, Cath (Day of Procedure) sodium chloride 0.9% infusion 11 30 (Continued Bag - Provider: Michell Browne RN) 100 mL/hr, Intravenous, CONTINUOUS, Star ting on Thu09/10/21 at 1145, Until Thu09/10/21 at 1343, Recovery (Recovery-Hospital Unit) PRN Medication Order 09/08/2021 09/09/2021 09/10/2021 fentaNYL (pf) (50 mcg/mL) multi-dose injection (CANCELED) 1040 (Given - Provider: Mariann Castaneda RN) ONCE PRN, Starting on Thu09/10/21 at 1040 , Until Thu09/10/21 at 1119, Intra- Operative (Intra-Procedure), Routine heparin (porcine) (1,000 units/mL) injection (CANCELED) 1047 (Given - Provider: Jessie Snyder RN) ONCE PRN, Starting on Thu09/10/21 at 1047 , Until Thu09/10/21 at 1119, Cath (Intra- Procedure), Routine lidocaine (Xylocaine) 1% (10 mg/mL) injection (CANCELED) 1042 (Given - Provider: Bubba Dimas DO) ONCE PRN, Starting on Thu09/10/21 at 1042 , Until Thu09/10/21 at 1119, Cath (Intra- Procedure), Routine midazolam (pf) (Versed) (1 mg/mL) multi-dose injection (CANCELED ) 1040 (Given - Provider: Mariann Castaneda RN) ONCE PRN, Starting on Thu09/10/21 at 1040 , Until Thu09/10/21 at 1119, Cath (Intra- Procedure), Routine nitroGLYcerin 100 mcg/mL intracoronary dilution (CANCELED) 1044 (Given - Provider: Vinod Munoz MD) ONCE PRN, Starting on Thu09/10/21 at 1044 , Until Thu09/10/21 at 1119, Cath (Intra- Procedure), Routine verapamiL (Isoptin) (2.5 mg/mL) injection (CANCELED) 1044 (Given - Provider: Vinod Munoz MD) ONCE PRN, Starting on Thu09/10/21 at 1044 , Until Thu09/10/21 at 1119, Administer over 2 Minutes, Cath (Intra-Procedure) documented in this encounter Care Teams Wide Area Network Administrator Relationship Specialty Start Date End Date Jesusita Law MD PCP - General Family Medicine 09/03/[address] [facility] [place] [address] documented as of this encounter
--- OUTSIDE RECORDS SUMMARY | 2021-10-25 11:04 | XMS_ITS | Encounter Summary ---
:1945 Author Organization [facility] Address [facility] [address] [place] [address] Care Team Providers Name Role Phone Jesusita Law MD Primary Care Provider [phone] Reason for Visit Auth/Cert Specialty Diagnoses / Procedures Referred By Contact Refer red To Contact Diagnoses Coronary artery disease involving [place] heart with unstable angina pectoris, unspecified vessel or lesion type cad Abdon Dawson MD [facility] Procedures PRO CABG, ARTERIAL, SINGLE PRO CABG, ARTERY-VEIN, THREE PRO ENDOSCOPY W/VIDEO-ASST VEIN HARVEST, CABG @CABG, USING ARTERIAL GRAFT;SINGLE ARTERIAL GRAFT (WRVU 33.75) @CABG; 3 VENOUS GRAFTS & ARTERIAL GRAFT (WRVU 10.49) [facility] DR ALMEIDA HARVEST VEIN(S) FOR CABG (WRV U 0.31) CARDIOTHORACIC [place] [address] Referral ID Status Reason Start Date Expiration Date Visits Requ ested Visits Authorized [id number] 1 1 Encounter Details Date Type Department Care Team Description 09/24/2021 Office Visit Cardiac Surgery at Abdon Dawson Coron rj artery [facility] [place] Murali disease involving [facility] terry dior heart with Drive unstable angina [place], [place] CARDIOTHORACIC pectoris, uns pecified [phone] SURGERY vessel or lesion type [phone] [place], [place] [address] Social History Tobacco Use Types Packs/Day Years [...] Sign Reading Time Taken Comments Blood Pressure 108/54 09/24/2021 11:41 AM EDT Pulse 61 09/24/2021 11:41 AM EDT Temperature - - Respiratory Rate - - Oxygen Saturation 98% 09/24/2021 11:41 AM EDT Inhaled Oxygen Concentration - - Weight 114.8 kg (253 lb 1.6 oz) 09/24/2021 11:41 AM EDT Height 170.2 cm (5' 7) 09/24/2021 11:41 AM EDT Body Mass Index 39.64 09/24/2021 11:41 AM EDT documented in this encounter Progress Notes Abdon Dawson MD - 09/24/2021 11:20 AM EDT Cardiothoracic Surgery Consultation ? Lalo Guerra is seen at the request of Dr. Santana for the evaluation of CAD. ?? HPI: Lalo Guerra is a 76 y.o. year old male with increasing angina with minimal effort. ?? Problem List: Patient Active Problem List ?? Diagnosis ??? 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 ASCVD (arteriosclerotic cardiovascular disease) ? Progressive CCS Class III angina Cardiac catheterization 10/24/15: mild diffuse CAG LAD, LCX, long 99% ost %CA with L->R collaterals S/p PCI 10/24/15: 909% ost RCA MODESTO x2, complicated by VF, defibrillated. Dobutamine MIBI ETT 10/05/15: PHR 136, no angin aor EKG changes, small infero- septal and inferior ischemia, LVEF 65% ? PAF (paroxysmal atrial fibrillation) ? Now in permanent a fib- anticoagulation and rate control S/p cardioversion on sotolol Sotolol stopped due to DUVALL Amiodarone discontinued due to side effects ? Essential hypertension ??? Hyperlipidemia ??? Hypothyroidism ??? Presence of permanent cardiac pacemaker ? Jul 2012 ? Sick sinus syndrome ? Past Medical History: Past Medical History Past Medical History: Diagnosis Date ??? ASCVD (arteriosclerotic cardiovascular disease) 10/24/2015 ??? Coronary artery disease ? CPAP (continuous positive airway pressure) dependence ? Diabetes ? Essential hypertension 10/24/2015 ??? Gastroesophageal reflux ? Hyperlipidemia 10/24/2015 ??? Hypothyroidism 10/24/2015 ??? Irregular heart beat ? Obstructive sleep apnea ? PAF (paroxysmal atrial fibrillation) 10/24/2015 ?? S/p cardioversion on sotolol Amiodarone discontinued due to side effects ??? Presence of permanent cardiac pacemaker 10/24/2015 ??? Sick sinus syndrome 10/24/2015 ??? Stroke ? Past Surgical History: Past Surgical History Past Surgical History: Procedure Laterality Date ??? CORONARY ANGIOPLASTY WITH STENT PLACEMENT ? PACEMAKER IMPLANT ? PRG CATH PLMT LEFT HEART CATH & ARTS W/INJ & ANGIO IMG S&I N/A 09/10/2021 ?? CORONARY ANGIOGRAPHY; W LHC,POSSIBLE PCI performed by Vinod Hassan MD at [facility] ? Family History: Family History History reviewed. No pertinent family history. ?? Social History: Social History Social History ?? Socioeconomic History ??? Marital status: ? Spouse name: None ??? Number of children: None ??? Years of education: None ??? Highest education level: None Occupational History ??? None Tobacco Use ??? Smoking status: Former Smoker ? Types: Cigarettes ? Quit date: 06/11/1992 ? Years since quittin.3 ??? Smokeless tobacco: Former User ? Quit date: 1969 ??? Tobacco comment: quit in 1992 Substance and Sexual Activity ??? Alcohol use: No ? Comment: QUIT IN 1978 ??? Drug use: No ??? Sexual activity: None Other Topics Concern ??? None Social History Narrative ??? None ?? Social Determinants of Health ?? Financial Resource Strain: Not on file Food Insecurity: Not on file Transportation Needs: Not on file Physical Activity: Not on file Housing Stability: Not on file ? Review of Systems: ?? Constitutional - no weakness, fatigue, fevers HEENT [...] paresthesias Hematologic - no bruising, excessive bleeding ?? Allergies: Allergies Allergen Reactions ??? Lipitor [Atorvastatin] Other (See Comments) ? myositis ??? Amiodarone ? Bluish discoloration on face ? Meds: Medications Taking Outpatient Medications Marked as Taking for the 09/27/21 encounter (Hospital Encounter) Medication Sig Dispense Refill ??? albuteroL 90 mcg/actuation HFA Aerosol Inhaler Inhale 1 puff into the lungs as needed for Cough.? acetaminophen (Tylenol) 500 mg Tablet Take 500 mg by mouth as needed for Pain. Take 1-2 tablet by mouth every 6 hours prn for aches ? dilTIAZem CD (Cardizem CD) 180 mg Capsule, Sust. Release 24 hr Take 180 mg by mouth daily. ? Mometasone-Formoterol (Dulera) 200-5 mcg/actuation HFA Aerosol Inhaler Inhale 2 puffs into the lungs 2 times daily. ? aclidinium bromide (Tudorza Pressair) 400 mcg/actuation Aerosol Powdr Breath Activated Inhale 400 mcg into the lungs 2 times daily. ? potassium chloride (MICRO-K) 10 mEq Capsule, Sustained Release Take 20 mEq by mouth daily. ? metFORMIN XR (Glucophage XR) 500 mg Tablet Sustained Release 24 hr Take 1,000 mg by mouth 2 times daily. ? tamsulosin (Flomax) 0.4 mg Capsule TAKE 1 CAPSULE BY MOUTH TWICE DAILY ? furosemide (Lasix) 20 mg Tablet Take 20 mg by mouth daily. ? gemfibrozil (LOPID) 600 mg Tablet Take 300 mg by mouth 2 times daily. ? levothyroxine (Synthroid) 100 mcg Tablet Take 125 mcg by mouth daily. ? pravastatin (PRAVACHOL) 80 mg Tablet Take 80 mg by mouth nightly. ? warfarin (COUMADIN) 1 mg Tablet Take 1 mg by mouth daily. ? Physical Exam: ?? Patient Vitals for the past 24 hrs: ?? Temp Pulse Resp BP SpO2 O2 Device 09/27/21 1125 36.1 ??C (97 ??F) 78 16 148/80 98 % RA @LASTENCWT@ ? Constitutional:Well appearing in no acute distress. Skin: Warm, well perfused. HEENT: within normal limits. NC/AT EOMI Neck: supple, no JVD, no bruit. Heart: regular rate and rhythm, without murmurs. Lungs: clear bilaterally. Abdomen: soft, nontender, active bowel sounds, no masses noted. Extremities: full range of motion; no clubbing, cyanosis, or edema. Neuro exam: Alert and oriented x 3. Strength grossly normal. ?? Diagnositcs: Recent Labs 09/24/21 1306 WBC 8.0 NA 141 K 4.4 CL 102 CO2 27 GLUCOSE 143 ? CATH: severe 3vd please see report, I have reviewed the images with Dr. Hassan ? Assessment and Plan: ?? Lalo Guerra severe symptomatic 3vd ?? We had a long discussion regarding the [...] seems to understand and wishes to proceed. ?? documented in this encounter Plan of Treatment Upcoming Encounters Date Type Specialty Care Team Description 11/05/2021 Appointment Radiology 11/05/2021 Office Visit Cardiac Surgery Abdon Dawson MD [facility] CARDIOTHORACIC [place], [place] [address] (Wo rk) documented as of this encounter Results XR Chest PA & Lateral (Generic) (09/24/2021 2:03 PM EDT) Anatomical Region Laterality Modality Chest N/A Digital Radiography Specimen (Source) Anatomical Location Collection Method / Collectio n Time Received Time / Laterality Volume Impressions 09/24/2021 3:26 PM EDT No acute cardiopulmonary process. I have personally reviewed the image(s) and the resident's interpretation and agree with the findings, Marilin Rocha MD at 09/24/2021 3:26 PM Thank you for letting us participate in the care of this patient. ??If you are a health care provider and have any questi ons regarding this report, please contact the number below. ??For patients who have questions please contact the health medicare compliance auditor that requested your imaging first. ? Electronically signed by: Marilin Rocha MD , [facility] ([phone]), at 09/24/2021 3:26 PM Narrative 09/24/2021 3:26 PM EDT EXAMINATION: XR CHEST PA AND LATERAL (GENERIC) CLINICAL HISTORY: cad Unstable angina. TECHNIQUE: PA and lateral views of the chest COMPARISON: Chest radiograph 02/29/2020. FINDINGS: Left anterior chest wall cardiac generat or with dual intact leads projecting in the right atrium and right ventricle. The lungs are clear. No pleural effusion or pneumothorax. Cardiomediastinal silhouette, hilar cont ours and pulmonary vascular markings are normal. Calcifications of the coronary a rteries and aortic arch are noted. Moderate to severe degenerative changes to the thoracic spine with bridging osteophyte formation and endplate sclero sis. Procedure Note Marilin Rocha MD - 09/24/2021 EXAMINATION: XR CHEST PA AND LATERAL (MovableInk) CLINICAL HISTORY: cad Unstable angina. TECHNIQUE: PA and lateral views of the chest COMPARISON: Chest radiograph 02/29/2020. FINDINGS: Left anterior chest wall cardiac generat or with dual intact leads projecting in the right atrium and right ventricle. The lungs are clear. No pleural effusion or pneumothorax. Cardiomediastinal silhouette, hilar cont ours and pulmonary vascular markings are normal. Calcifications of the coronary a rteries and aortic arch are noted. Moderate to severe degenerative changes to the thoracic spine with bridging osteophyte formation and endplate sclero sis. IMPRESSION No acute cardiopulmonary process. I have personally reviewed the image(s) and the resident's interpretation and agree with the findings, Marilin Rocha MD at 09/24/2021 3:26 PM Thank you for letting us participate in the care of this patient. If you are a health care provider and have any questi ons regarding this report, please contact the number below. For patients w ho have questions please contact the health medicare compliance auditor that requested your imaging first. Electronically signed by: Marilin Rocha MD , [facility] ([phone]), at 09/24/2021 3:26 PM Abdon Dawson MD IMG DX ORDERABLES EKG 12 Lead (09/24/2021 1:08 PM EDT) [facility] Method Time Signature Ventricular rate 82 BPM MUSE SYSTEM Atrial Rate 80 BPM MUSE SYSTEM QRS Duration 184 ms MUSE SYSTEM Q-T Interval 464 ms MUSE SYSTEM QTC Calculated 542 ms MUSE SYSTEM (Bezet) Calculated R [place] -124 degrees MUSE SYSTEM Calculated T [place] 103 degrees MUSE SYSTEM INTERPRETATION Ventricular-paced rhythm MUSE SYSTEM Abnormal ECG When compared with ECG of 10-SEP-2021 10:04, Vent. rate has increased BY ??16 BPM Confirmed by Blessing Mendoza ([email or web address]) on 09/24/2021 1:58:00 P M Specimen Anatomical Collection Method Collection Time Receive d Time (Source) Location / / Volume Laterality 09/24/2021 1:08 PM 2 1:58 EDT PM EDT Abdon Dawson MD ECG ORDERABLES Performing Organization Address City/State/ZIP Code Phon e Number MUSE SYSTEM (ABNORMAL) Basic Metabolic Panel (non-fasting) (09/24/2021 1:06 PM EDT) P athologist Signature Glucose Lvl 143 65 - 199 [facility] mg/dL [facility] Comment: Diabetes: >=200 mg/dL plus symp toms BUN 22 (H) 10 - 20 mg/dL [facility] Creatinine 0.94 0.80 - 1.50 mg/dL [facility] Sodium 141 135 - 145 mmol/L [facility] Potassium 4.4 3.5 - 5.0 mmol/L [facility] Comment: Please note: ??Patients with WBC >100,00 0 may have falsely elevated Potassium levels. ??For accurate Potassium quantif ication in these patients send serum separator tube (gold top) for subsequent determinations. ??Contact the Clinical Chemistry Laboratory if there are any qu estions. Chloride 102 98 - 107 mmol/L [facility] CO2 27 22 - 31 mmol/L [facility] Anion Gap 12 5 - 15 mmol/L [facility] Calcium 9.4 8.5 - 10.5 mg/dL [facility] Estimated GFR 85 >=60 mL/min/1.73 m?? [facility] Comment: This patient's estimated GFR [...] Volume Laterality Blood 09/24/2021 1:06 PM 2 1:08 EDT PM EDT Resulting Agency Comment Spec In Lab Abdon Dawson MD CHEMISTRY ORDERABLES Performing Organization Address City/State/[place] [address] documented in this encounter Visit Diagnoses Diagnosis Coronary artery disease involving [place] heart with unstable angina pectoris, unspecified vessel or lesion type Coronary artery disease involving [place] heart with unstable angina pectoris, unspecified vessel or lesion type documented in this encounter Care Teams Livestock Trucker Relationship Specialty Start Date End Date Jesusita Law MD PCP - General Family Medicine 09/03/[address] [facility] [place] [address] documented as of this encounter
--- OUTSIDE RECORDS SUMMARY | 2021-10-25 11:04 | XMS_ITS | Encounter Summary ---
:1945 Author Organization [facility] Address [facility] [place] [address] Care Team Providers Name Role Phone Jesusita Law MD Primary Care Provider [phone] Reason for Visit Auth/Cert Specialty Diagnoses / Procedures Referred By Contact Refer red To Contact Diagnoses Coronary artery disease involving [place] heart with unstable angina pectoris, unspecified vessel or lesion type cad Abdon Dawson MD [facility] Procedures PRO CABG, ARTERIAL, SINGLE PRO CABG, ARTERY-VEIN, THREE PRO ENDOSCOPY W/VIDEO-ASST VEIN HARVEST, CABG @CABG, USING ARTERIAL GRAFT;SINGLE ARTERIAL GRAFT (WRVU 33.75) @CABG; 3 VENOUS GRAFTS & ARTERIAL GRAFT (WRVU 10.49) [facility] DR ALMEIDA HARVEST VEIN(S) FOR CABG (WRV U 0.31) [place] [address] Referral ID Status Reason Start Date Expiration Date Visits Requ ested Visits Authorized [id number] 1 1 Encounter Details Date Type Department Care Team Description 09/24/2021 Clinical Support Same Day at [facility] Coronary artery disease [facility] involving bad [place] heart [place] [address] pectoris, unspecified [phone] vessel or lesio n type Social History Tobacco Use Types Packs/Day Years Used Date Former Smoker Cigarettes Quit: 06/11/18 93 Smokeless Tobacco: Former User Q uit: 1970 Comments: quit in 1992 Alcohol Use Standard Drinks/Week Comments No 0 (1 standard drink = 0.6 oz pure alcoho l) Sex Assigned at Date Recorded Not on file documented as of this encounter Progress Notes Sadia Mireles RN - 09/24/2021 12:30 PM EDT Abbreviated Anesthesia questionnaire reviewed with patient while in [facility]. Pt has tolerated anesthesia in the past. Pre-operative instruction booklet reviewed with patient. Reviewed importance of pain control and cough and deep breathing exercise during the post-operative period. Instructed patient on use of Hibiclens soap to shower with the night before surgery or the morning of surgery. Pt verbalizes good understanding of all information reviewed. Pt received Cardiac Surgery folder. Pt to bring booklet in overnight bag. PLAN Testing: Type and screen, other labs, EKG, sent to for CXR Special medication instructions: Pt and report instructions to not take any medications on DOS.Pt reports instructions to hold coumadin starting 09-24-21. Procedure date: Tentative 09-27-21 Dr Dawson Pre Surgery Covid screening: Were you diagnosed with COVID 19 or had symptoms consistent with COVID 19 within the last 3 months. No Pt will bring CPAP on DOS. 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 pectoris, unspecified vessel or lesion type documented in this encounter Results EKG 12 Lead (09/24/2021 1:08 PM EDT) [facility] Method Time Signature Ventricular rate 82 BPM MUSE SYSTEM Atrial Rate 80 BPM MUSE SYSTEM QRS Duration 184 ms MUSE SYSTEM Q-T Interval 464 ms MUSE SYSTEM QTC Calculated 542 ms MUSE SYSTEM (Bezet) Calculated R [place] -124 degrees MUSE SYSTEM Calculated T [place] 103 degrees MUSE SYSTEM INTERPRETATION Ventricular-paced rhythm MUSE SYSTEM Abnormal ECG When compared with ECG of 10-SEP-2021 10:04, Vent. rate has increased BY ??16 BPM Confirmed by Blessing Mendoza ([id number]) on 09/24/2021 1:58:00 P M Specimen Anatomical Collection Method Collection Time Receive d Time (Source) Location / / Volume Laterality 09/24/2021 1:08 PM 1:58 EDT PM EDT Abdon Dawson MD ECG ORDERABLES Performing Organization Address City/State/ZIP Code Phon e Number MUSE SYSTEM documented in this encounter Visit Diagnoses Diagnosis Coronary artery disease involving [place] heart with unstable angina pectoris, unspecified vessel or lesion type documented in this encounter Care Teams Planetarium Sky Show Technician Relationship Specialty Start Date End Date Jesusita Law MD PCP - General Family Medicine 09/03/[address] [place] [address] documented as of this encounter
--- OUTSIDE RECORDS SUMMARY | 2021-10-25 11:04 | XMS_ITS | Encounter Summary ---
:1945 Author Organization [place] [address] Care Team Providers Name Role Phone Jesusita Law MD Primary Care Provider [phone] Encounter Details Date Type Department Care Team Description 12/29/2019 Telephone MRI at [facility] [place] [address] Social History Tobacco Use Types Packs/Day Years Used Date Former Smoker Smokeless Tobacco: Former User Q uit: 1970 Comments: quit in 1992 Alcohol Use Standard Drinks/Week Comments No 0 (1 standard drink = 0.6 oz pure alcoho l) Sex Assigned at Date Recorded Not on file documented as of this encounter Miscellaneous Notes Telephone Encounter - Kristel Magdaleno - 12/29/2019 1:05 PM ESTSummary: Radiology - MRI scheduling - pt called back Pt called back stated he will be having mri done at [facility] instead. documented in this encounter Plan of Treatment Upcoming Encounters Date Type Specialty Care Team Description 11/05/2021 Appointment Radiology 11/05/2021 Office Visit Cardiac Surgery Abdon Dawson MD [facility] CARDIOTHORACIC [address] [place], [place] [address] (Wo rk) documented as of this encounter Visit Diagnoses Not on filedocumented in this encounter Care Teams Crystallographer Relationship Specialty Start Date End Date Jesusita Law MD PCP - General Family Medicine 10/24/15 09/02/21 documented as of this encounter
--- OUTSIDE RECORDS SUMMARY | 2021-10-25 11:04 | XMS_ITS | Encounter Summary ---
:1945 [place] [address] Care Team Providers Name Role Phone Jesusita Law MD Primary Care Provider [phone] Encounter Details Date Type Department Care Team Description 08/29/2021 Orders Only Tobacco Buyer Macario Holliday, Screening for cardiovascular condition; [facility] Abnormal stress test; [facility] Chest pain, unspecified type [facility] [place] [address] [place], [place] [phone] (Work) [phone] Social History Tobacco Use Types Packs/Day Years [...] Cardiac Surgery Abdon Dawson MD [facility] CARDIOTHORACIC S [place], [place] [address] (Wo rk) Scheduled Orders Name Type Priority Associated Diagnoses Order S chedule CBC (with Diff) Lab Routine Screening for Expected: 0 08/29/2021 cardiovascular c ondition (Approximate) Abnormal stress test Chest pain, unspecified type Basic Metabolic Panel Lab Routine Screening for Expec angelica: 08/29/2021 (non-fasting) cardiovascular c ondition (Approximate) Abnormal stress test Chest pain, unspecified type documented as of this encounter Visit Diagnoses Diagnosis Screening for cardiovascular condition Screening for other and unspecified card iovascular conditions Abnormal stress test Other nonspecific abnormal cardiovascula r system function study Chest pain, unspecified type documented in this encounter Care Teams Nail Kegger Relationship Specialty Start Date End Date Jesusita Law MD PCP - General Family Medicine 10/24/15 09/02/21 documented as of this encounter
--- OUTSIDE RECORDS SUMMARY | 2021-10-25 11:04 | XMS_ITS | Encounter Summary ---
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, unspecified vessel or lesion type cad Abdon Dawson MD [facility] Procedures PRO CABG, ARTERIAL, SINGLE PRO CABG, ARTERY-VEIN, THREE PRO ENDOSCOPY W/VIDEO-ASST VEIN HARVEST, CABG @CABG, USING ARTERIAL GRAFT;SINGLE ARTERIAL GRAFT (WRVU 33.75) @CABG; 3 VENOUS GRAFTS & ARTERIAL GRAFT (WRVU 10.49) [facility] ENDOSCOPIC HARVEST VEIN(S) FOR CABG (WRV U 0.31) [place] [address] Referral ID Status Reason Start Date Expiration Date Visits Requ ested Visits Authorized [id number] 1 1 Encounter Details Date Type Department Care Team Description 09/24/2021 Hospital Encounter XRay at [facility] Abdon Dawson Coronary artery [address] [place] [address] Dr Murali MD disease involving [facility] [place] heart [facility] [address] [address] unstable angina [phone] CARDIOTHORACIC pectoris, SURGERY unspecified vessel [place], [place] or lesion type [id number] Social History Tobacco Use Types Packs/Day Years [...] OTC) 55 mcg Aerosol, spray into both [place] nostrils once a day as needed for [...] for Cough for up to 5 days. enoxaparin (Lovenox) Inject 0.8 mLs 4.8 mL 0 10/03/2021 10/03/2021 120 mg/0.8 mL Syringe subcutaneously every 12 hours for 3 days. Take until you INR is 1.8 or greater UNABLE TO FIND Take 2 capsules by 0 mouth daily. Cataplex chlorhexidine Apply topically daily 120 mL 0 09/24/2021 09/27/2021 (HIBICLENS) 4 % Liquid as needed. Shower from head to toe with Chlorhexidine the night before surgery . dilTIAZem CD (Cardizem Take 180 mg by mouth 0 10/03/2021 CD) 180 mg Capsule, daily. Sust. Release 24 hr potassium chloride Take 20 mEq by mouth 0 10/03/2021 (MICRO-K) 10 mEq daily. Capsule, Sustained Release omeprazole (PriLOSEC) Take 20 mg by mouth 0 12/0109/26/2021 20 mg Capsule, Delayed daily as needed. Release(E.C.) furosemide (Lasix) 20 Take 20 mg by mouth 0 12/1410/03/2021 mg Tablet daily. warfarin (COUMADIN) 1 Take 1 mg by mouth 0 10/03/2021 mg Tablet daily. nitroGLYcerin Place 0.4 mg under the 0 10/03/2021 (NITROSTAT) 0.4 mg tongue every 5 minutes Tablet, Sublingual as needed for Chest pain. documented as of this encounter Plan of Treatment Upcoming Encounters Date Type Specialty Care Team Description 11/05/2021 Appointment Radiology 11/05/2021 Office Visit Cardiac Surgery Abdon Dawson MD [facility] CARDIOTHORACIC [place], [place] [address] (Wo rk) documented as of this encounter Procedures Procedure Name Priority Date/Time Associated Diagnosis Comme nts XR CHEST PA AND Routine 09/24/2021 2:03 PM Coronary artery Res ults for this LATERAL EDT disease involving procedure are in [place] heart with the result s unstable angina [...] questions please contact the health child care director that requested your imaging first. ? Electronically signed by: Marilin Rocha MD , [facility] ([phone]), at 09/24/2021 3:26 PM Narrative 09/24/2021 3:26 [...] 09/24/2021 EXAMINATION: XR CHEST PA AND LATERAL (Hunite) CLINICAL HISTORY: cad Unstable angina. TECHNIQUE: PA [...] questions please contact the health child care director that requested your imaging first. 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
--- OUTSIDE RECORDS SUMMARY | 2021-10-25 11:04 | XMS_ITS | Encounter Summary ---
:1945 Author Organization 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, unspecified vessel or lesion type cad Abdon Dawson MD [facility] Procedures PRO CABG, ARTERIAL, SINGLE PRO CABG, ARTERY-VEIN, THREE PRO ENDOSCOPY W/VIDEO-ASST VEIN HARVEST, CABG @CABG, USING ARTERIAL GRAFT;SINGLE ARTERIAL GRAFT (WRVU 33.75) @CABG; 3 VENOUS GRAFTS & ARTERIAL GRAFT (WRVU 10.49) [facility] DR ALMEIDA HARVEST VEIN(S) FOR CABG (WRV U 0.31) C[place]ORACIC [place] [address] Referral ID Status Reason Start Date Expiration Date Visits Requ ested Visits Authorized [id number] 1 1 Encounter Details Date Type Department Care Team Description 09/24/2021 Laboratory Appointment Lab 3L [facility] [place] [address] Social History Tobacco Use Types Packs/Day [...] Cardiac Surgery Abdon Dawson MD [facility] CARDIOTHORACIC S [place], [place] [address] (Wo rk) documented as of this encounter Visit Diagnoses Not on filedocumented in this encounter Care Teams Pie Topper Relationship Specialty Start Date End Date Jesusita Law MD PCP - General Family Medicine 09/03/[address] [place] [address] documented as of this encounter
--- OUTSIDE RECORDS SUMMARY | 2021-10-25 11:04 | XMS_ITS | Encounter Summary ---
:1945 Author Organization [facility] [place] [address] Care Team Providers Name Role Phone Jesusita Law MD Primary Care Provider [phone] Encounter Details Date Type Department Care Team Description 06/22/2019 Hospital Encounter Laboratory [facility] [address] Social History Tobacco Use Types Packs/Day [...] Sig Dispensed Refills Start Date End Date gemfibrozil (LOPID) 600 mg Take 300 mg by 0 Tablet mouth 2 times daily. levothyroxine (Synthroid) Take 125 mcg by 0 100 mcg Tablet mouth daily. pravastatin (PRAVACHOL) 80 Take 80 mg by mouth 0 mg Tablet nightly. aspirin 81 mg Tablet, Take 1 tablet [...] times daily. documented as of this encounter Plan of Treatment Upcoming Encounters Date Type Specialty Care Team Description 11/05/2021 Appointment Radiology 11/05/2021 Office Visit Cardiac Surgery Abdon Dawson MD [facility] DR CARDIOTHORACIC [place] [id number] (Wo rk) documented as of this encounter Procedures Procedure Name Priority Date/Time Associated Diagnosis Comme nts COVID-19 PCR Routine 06/22/2019 1:00 PM Results f or this EDT procedure are i n the results section . documented in this encounter Results COVID-19 PCR (06/22/2019 1:00 PM EDT) [facility] Method Time Signature SARS-CoV-2 Not Detected Not Detected [facility] Comment: This result should be interpreted in com bination with the clinical observations, patient history and epidem iological information. For testing of asymptomatic individuals, assay performa nce characteristics and clinical utility have not been evaluated. Testing for SARS-CoV-2 (Severe acute respiratory syndrome coronavirus 2, form erly known as 2019 novel coronavirus or 2019-nCoV) to aid in the diagnosis of CO VID-19 is performed using the [employer] RealTime SARS-CoV-2 as authorized by the FDA Emergency Use Authorization (EUA). This EUA assay is intended for In-vitro Diagnostic (IVD) use with respiratory specimens such as nasopharyngeal swabs c ollected from individuals during the acute phase of infection. This assay is performed based on the instructions for use provided by the [employer] and additional guidance provided by CDC and FDA. Testing is performed in the [facility] Laboratory within the Department of Path ology and Laboratory Medicine at [facility], cert ified under the Clinical Laboratory Improvement Amendments of 1988 (CLIA), 4 2 U.S.C. ?? 263a, to perform high complexity tests. Assay performance has been verified according to clinical laboratory regulatory requirements. Test results are provided above. A resul t of Not Detected indicates that the viral RNA target is not present but does not preclude SARS-CoV-2 infection. False negative results may occur if a sp ecimen is improperly collected, transported or handled; if amplification inhibitors are present; or if inadequate numbers of viral particles ar e present in the specimen. A result of Detected suggests a current or recent infection and the patient is presumed to be infected. As required or requested by public health authorities, positive specimens may be sent for additional niraj ting. Positive and negative predictive values for this test are highly dependen t on disease prevalence. A result of Invalid indicates that neither the vir al RNA targets nor the internal control target was detected. An invalid result s uggests the presence of inhibitors. Recollection is recommended in the case of an invalid result. CDC COVID-19 criteria for testing on hum an specimens and clinical management guidance information are available at e CDC Coronavirus Disease 2019 (COVID-19) webpage under Information fo r Healthcare Professionals (https://www.cdc.gov/coronavirus/2019-nc ov/hcp/index.html) Additional information about this and ot her EUA tests can be found in provider and patient fact sheets at the following FDA website: https://www.fda.gov/medical-devices/mqotrtqgn-qrlzzaqvss-vdvqaua-devices/emergen cc-rjq-vvyqhejovalwto#gopkb50bmd SARS-Cov-2 RNA Source HAIR PREPARER Swab [facility] Specimen (Source) Anatomical Collection Method Collection Time Re ceived Time Location / / Volume Laterality Nasopharyngeal swab Other / Unknown 06/22/2019 1:00 (specimen) PM EDT 10:13 PM EDT Resulting Agency Comment Spec In Lab Brodie Kelly DO MICROBIOLOGY - GENERAL JUAN SHAFFER Performing Organization Address City/State/[place] [address] documented in this encounter Visit Diagnoses Not on filedocumented in this encounter Care Teams Cloth Calender Relationship Specialty Start Date End Date Jesusita Law MD PCP - General Family Medicine 10/24/15 09/02/21 documented as of this encounter
--- OUTSIDE RECORDS SUMMARY | 2021-10-25 11:04 | XMS_ITS | Encounter Summary ---
:1945 Author Organization [facility] [place] [address] Care Team Providers Name Role Phone Jesusita Law MD Primary Care Provider [phone] Encounter Details Date Type Department Care Team Description 12/29/2019 Telephone MRI at [facility] [place] [address] Social History Tobacco Use Types Packs/Day Years Used Date Former Smoker Smokeless Tobacco: Former User Q uit: 1970 Comments: quit in 1992 Alcohol Use Standard Drinks/Week Comments No 0 (1 standard drink = 0.6 oz pure alcoho l) Sex Assigned at Date Recorded Not on file documented as of this encounter Miscellaneous Notes Telephone Encounter - Kristel Magdaleno - 12/29/2019 8:21 AM ESTSummary: RADIOLOGY - LVM TO SCHEDULE Left message for pt to call back to schedule with Radiology for MRI Multiparametric scan. Pt will need PO Meds and with the pacemaker pt has been approved for any scanner with a two view chest xray prior. [place] [facility] documented in this encounter Plan of Treatment Upcoming Encounters Date Type Specialty Care Team Description 11/05/2021 Appointment Radiology 11/05/2021 Office Visit Cardiac Surgery Abdon Dawson MD [facility] CARDIOTHORACIC [place], [place] [address] (Wo rk) documented as of this encounter Visit Diagnoses Not on filedocumented in this encounter Care Teams Produce Laborer Relationship Specialty Start Date End Date Jesusita Law MD PCP - General Family Medicine 10/24/15 09/02/21 documented as of this encounter
--- OUTSIDE RECORDS SUMMARY | 2021-10-25 11:04 | XMS_ITS | Encounter Summary ---
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, unspecified vessel or lesion type cad Abdon Dawson MD [facility] Procedures PRO CABG, ARTERIAL, SINGLE PRO CABG, ARTERY-VEIN, THREE PRO ENDOSCOPY W/VIDEO-ASST VEIN HARVEST, CABG @CABG, USING ARTERIAL GRAFT;SINGLE ARTERIAL GRAFT (WRVU 33.75) @CABG; 3 VENOUS GRAFTS & ARTERIAL GRAFT (WRVU 10.49) [facility] DR ALMEIDA HARVEST VEIN(S) FOR CABG (WRV U 0.31) [place] [address] Referral ID Status Reason Start Date Expiration Date Visits Requ ested Visits Authorized [id number] 1 1 Encounter Details Date Type Department Care Team Description 09/24/2021 Laboratory Appointment Lab at [facility] Coronary artery [facility] disease i [address] [place] heart with [place], [place] unstable angina [address] pectoris, unspecified [phone] vessel or lesio n type Social History [...] Abdon Dawson MD [facility] [place] [address] (Wo rk) documented as of this encounter Procedures Procedure Name Priority Date/Time Associated Diagnosis Comme nts TYPE AND SCREEN Routine 09/24/2021 1:06 PM Result s for this VALIDITY EDT procedure are i n the results section. ABORH RECHECK Routine 09/24/2021 1:06 PM Results for this STATUS EDT procedure are i n the results section. HEMOGRAM Routine 09/24/2021 1:06 PM Coronary artery Result s for this EDT disease involving procedure are in [place] heart with the result s unstable angina section. pectoris, unspecified vessel or lesion type DIFFERENTIAL, Routine 09/24/2021 1:06 PM Coronary artery Resul ts for this AUTOMATED EDT disease involving procedure are in [place] heart with the result s unstable angina section. pectoris, unspecified vessel or lesion type HC ANTIBODY Routine 09/24/2021 1:06 PM Coronary artery DETECTION,CAPTURE-R EDT disease involving [place] heart with unstable angina pectoris, unspecified vessel or lesion type ABO/RH TYPING Routine 09/24/2021 1:06 PM Coronary artery Resul ts for this EDT disease involving procedure are in [place] heart with the result s unstable angina section. pectoris, unspecified vessel or lesion type HC CBC,PLT & AUTO Routine 09/24/2021 1:06 PM Coronary artery DIFF EDT disease involving [place] heart with unstable angina pectoris, unspecified vessel or lesion type ANTIBODY SCREEN Routine 09/24/2021 1:06 PM Coronary artery Res ults for this EDT disease involving procedure are in [place] heart with the result s unstable angina section. pectoris, unspecified vessel or lesion type BASIC METABOLIC Routine 09/24/2021 1:06 PM Coronary artery Res ults for this PANEL (NON-FASTING) EDT disease involving pro cedure are in [place] heart with the result s unstable angina section. pectoris, unspecified vessel or lesion type documented in this encounter Results Type and Screen Validity (09/24/2021 1:06 PM EDT) [facility] Method Time Signature T&S only valid [facility] Comment: This Type and Screen result is only valid at the [facility] Hospital Specimen Anatomical Collection Method Collection Time Receive d Time (Source) Location / / Volume Laterality Blood 09/24/2021 1:06 PM 2 1:15 EDT PM EDT Resulting Agency Comment Spec In Lab Abdon Dawson MD BLOOD BANK ORDERABLES Performing Organization Address City/[facility]/[place] [address] ABORH Recheck Status (09/24/2021 1:06 PM EDT) [facility] [employer] Method Time Signature ABORH Type Completed [facility] LABORATORY Specimen Anatomical Collection Method Collection Time Receive d Time (Source) Location / / Volume Laterality Blood 09/24/2021 1:06 PM 2 1:15 EDT PM EDT Resulting Agency Comment Spec In Lab Abdon Dawson MD BLOOD BANK ORDERABLES Performing Organization Address City/[facility]/[place] [address] (ABNORMAL) Differential, Automated (09/24/2021 1:06 PM EDT) [facility] [employer] Method Time Signature Neutrophils % 57.0 % [facility] Neutr Abs (ANC) 4.57 1.70 - [facility] 6.10 [facility] x10(3)/[facility] LABORATORY Lymphocytes % 24.3 % [facility] Lymphocytes Abs 1.9 0.9 - 3.2 [facility] x10(3)/[facility] LABORATORY Monocytes % 12.8 % [facility] Monocyte Abs 1.0 (H) 0.3 - 0.9 [facility] x10(3)/[facility] LABORATORY Eosinophils % 4.5 % [facility] Eosinophils Abs 0.4 0.0 - 0.4 [facility] x10(3)/[facility] LABORATORY Basophils % 1.1 % [facility] Basophils Abs 0.1 0.0 - 0.1 [facility] x10(3)/[facility] LABORATORY Immature Gran % 0.30 % [facility] Comment: Immature granulocytes(IG's)percentage an d absolute count will include metamyelocytes, myelocytes, and promyelo cytes. Blood smears from CBCs yielding IG's will be scanned manually for concor dance. If this scan disagrees with the automated IG or if promyelocytes are not ed, a manual differential will be performed. Anna Gran Abs 0.02 0.00 - 0.04 x10(3)/[facility] LABORATORY Specimen Anatomical Collection Method Collection Time Receive d Time (Source) Location / / Volume Laterality Blood 09/24/2021 1:06 PM 2 1:09 EDT PM EDT Resulting Agency Comment Spec In Lab Abdon Dawson MD HEMATOLOGY ORDERABLES Performing Organization Address City/State/[place] [address] (ABNORMAL) Hemogram (09/24/2021 1:06 PM EDT) Analysis Performed At Patho logist Time Signature WBC 8.0 4.0 - 9.5 [facility] x10(3)/[facility] LABORATORY RBC 4.85 4.58 - [facility] x10(6)/[facility] LABORATORY Hemoglobin 13.5 (L) 13.7 - [facility] 16[facility] g/dL [facility] Hematocrit 42.6 40.5 - [facility] 48.5 % [facility] MCV 87.8 82.9 - [facility] 93.1 [facility] LABORATORY MCH 27.8 27.5 - MAIRA AUDREY 32.1 pg [facility]ORY MCHC 31.7 (L) 32.0 - [facility] 35.[facility] g/dL [facility] Platelets 232 145 - 357 [facility] x10(3)/[facility] LABORATORY RDWSD 44.9 36.0 - [facility] 45.0 [facility] RDWCV 14.0 (H) 11.4 - [facility] 13.8 % [facility] LABORATORY MPV 10.0 7.6 - 12.9 [facility] LABORATORY nRBC % Auto 0.0 % [facility] nRBC Abs Auto 0.000 0.000 - [facility] 0.000 [facility] x10(3)/[facility] LABORATORY Specimen Anatomical Collection Method Collection Time Receive d Time (Source) Location / / Volume Laterality Blood 09/24/2021 1:06 PM 2 1:09 EDT PM EDT Resulting Agency Comment Spec In Lab Abdon Dawson MD HEMATOLOGY ORDERABLES Performing Organization Address City/[facility]/[place] [address] Antibody screen (09/24/2021 1:06 PM EDT) Patholo gist Method Time Signature Ab Screen Negative [facility] LABORATORY Expires at 09/30/2021 [facility] [id number] on: [facility] Specimen Anatomical Collection Method Collection Time Receive d Time (Source) Location / / Volume Laterality Blood 09/24/2021 1:06 PM 2 1:15 EDT PM EDT Resulting Agency Comment Spec In Lab Abdon Dawson MD BLOOD BANK ORDERABLES Performing Organization Address City/[facility]/[place] [address] ABO/Rh Typing (09/24/2021 1:06 PM EDT) P athologist Signature ABORh Type O Neg [facility] Specimen Anatomical Collection Method Collection Time Receive d Time (Source) Location / / Volume Laterality Blood 09/24/2021 1:06 PM 2 1:15 EDT PM EDT Resulting Agency Comment Spec In Lab Abdon Dawson MD BLOOD BANK ORDERABLES Performing Organization Address City/[facility]/[place] [address] (ABNORMAL) Basic Metabolic Panel (non-fasting) (09/24/2021 1:06 PM EDT) P athologist Signature Glucose Lvl 143 65 - 199 [facility] mg/dL [facility] Comment: Diabetes: >=200 mg/dL plus symp toms BUN 22 (H) 10 - 20 mg/dL [facility] Creatinine 0.94 0.80 - 1.50 mg/dL [facility] Sodium 141 135 - 145 mmol/L [facility] Potassium 4.4 3.5 - 5.0 mmol/L [facility] Comment: Please note: ??Patients with WBC >100,00 0 may have falsely elevated Potassium levels. ??For accurate Potassium quantif ication in these patients send serum separator tube (gold top) for subsequent determinations. ??Contact the Clinical Chemistry Laboratory if there are any qu estions. Chloride 102 98 - 107 mmol/L [facility] CO2 27 22 - 31 mmol/L [facility] Anion Gap 12 5 - 15 mmol/L [facility] Calcium 9.4 8.5 - 10.5 mg/dL [facility] Estimated GFR 85 >=60 mL/min/1.73 m?? 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
--- OUTSIDE RECORDS SUMMARY | 2021-10-25 11:04 | XMS_ITS | Encounter Summary ---
:1945 Author Organization [facility] Address [address] [place] [address] Care Team Providers Name Role Phone Jesusita Law MD Primary Care Provider [phone] Encounter Details Date Type Department Care Team Description 02/29/2020 Hospital Encounter XRay at [facility] Lavern Membreno, Abnormal digital [address] CARLOS rectal exam [place], [place] [address] [id number] [address] [phone] [place] [address] Social History Tobacco Use Types Packs/Day Years [...] Abdon Dawson MD [facility] CARDIOTHORACIC S [place], [place] [address] (Wo rk) documented as of this encounter Procedures Procedure Name Priority Date/Time Associated Diagnosis Comme nts XR PRE MRI ORBITS Routine 02/29/2020 1:33 PM Abnormal digital Results for this EST rectal exam procedure are i n the results section. XR CHEST PA AND Routine 02/29/2020 1:33 PM Abnormal digital Re sults for this LATERAL EST rectal exam procedure are i n the results section. documented in this encounter Results XR Pre MRI Orbits (Generic) (02/29/2020 1:33 PM EST) Anatomical Region Laterality Modality Head N/A Digital Radiography Specimen (Source) Anatomical Location Collection Method / Collectio n Time Received Time / Laterality Volume Impressions 02/29/2020 2:59 PM EST FINDINGS/IMPRESSION: No intraorbital radiopaque foreign body seen. I have personally reviewed the image(s) and the resident's interpretation and agree with the findings, Homa Guzman MD at 02/29/2020 2:59 PM Thank you for letting us participate in the care of this patient. For questions regarding this report, please contact e number below. ? Electronically signed by: Angela Taylor, [facility] ([phone]), at 02/29/2020 2:59 PM Narrative 02/29/2020 2:59 PM EST EXAMINATION: XR PRE MRI ORBITS (GENERIC) CLINICAL HISTORY: ABNORMAL DIGITAL RECTA L EXAM (as entered by ordering provider in the order requisition) TECHNIQUE: Frontal and lateral orbital radiographs. COMPARISON: None Procedure Note Homa Guzman MD - 02/29/2020Formattin g of this note might be different from the original. EXAMINATION: XR PRE MRI ORBITS (GENERIC) CLINICAL HISTORY: ABNORMAL DIGITAL RECTA L EXAM (as entered by ordering provider in the order requisition) TECHNIQUE: Frontal and lateral orbital radiographs. COMPARISON: None IMPRESSION FINDINGS/IMPRESSION: No intraorbital radiopaque foreign body seen. I have personally reviewed the image(s) and the resident's interpretation and agree with the findings, Homa Guzman MD at 02/29/2020 2:59 PM Thank you for letting us participate in the care of this patient. For questions regarding this report, please contact e number below. Electronically signed by: Angela Taylor, [facility] ([phone]), at 02/29/2020 2:59 PM Lavern Membreno MD IMG DX ORDERABLES XR Chest PA & Lateral (Generic) (02/29/2020 1:33 PM EST) Anatomical Region Laterality Modality Chest N/A Digital Radiography Specimen (Source) Anatomical Location Collection Method / Collectio n Time Received Time / Laterality Volume Impressions 02/29/2020 1:45 PM EST No acute cardiopulmonary process. Thank you for letting us participate in the care of this patient. For questions regarding this report, please contact e number below. ? Electronically signed by: Abdelrahman Gray DO, [facility] ([phone]), at 02/29/2020 1:45 PM Narrative 02/29/2020 1:45 PM EST EXAMINATION: XR CHEST PA AND LATERAL (GENERIC) CLINICAL HISTORY: 74-year-old male with abnormal digital rectal exam. TECHNIQUE: PA and lateral views of the c hest COMPARISON: There is no similar prior ex amination provided for comparison. FINDINGS: There is a left subclavian permanent pac emaker in place with lead tips overlying the right atrium and right ventricular a pex. The lead wires are intact without evidence of fracture. ??The graft lungs are clear. ??There is no pleural effusion. There is no pneumothorax. The trachea is midline. ??Hilar structur es are unremarkable. The cardiomediastinal silhouette is with in normal limits. ??There is atherosclerotic calcification of the aor tic arch. Visualized structures within the inferio r neck are unremarkable. ??Visualized structures within the superior abdomen a re unremarkable. 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 ??There are mild degenerative ch anges of the spine. Procedure Note Abdelrahman Gray DO - 02/29/2020Formatti ng of this note might be different from the original. EXAMINATION: XR CHEST PA AND LATERAL (GE NERIC) CLINICAL HISTORY: 74-year-old male with abnormal digital rectal exam. TECHNIQUE: PA and lateral views of the c hest COMPARISON: There is no similar prior ex amination provided for comparison. FINDINGS: There is a left subclavian permanent pac emaker in place with lead tips overlying the right atrium and right ventricular a pex. The lead wires are intact without evidence of fracture. The graft lungs ar e clear. There is no pleural effusion. There is no pneumothorax. The trachea is midline. Hilar structures are unremarkable. The cardiomediastinal silhouette is with in normal limits. There is atherosclerotic calcification of the aor tic arch. Visualized structures within the inferio r neck are unremarkable. Visualized structures within the superior abdomen a re unremarkable. 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 There are mild degenerative street ges of the spine. IMPRESSION No acute cardiopulmonary process. Thank you for letting us participate in the care of this patient. For questions regarding this report, please contact th e number below. Electronically signed by: Abdelrahman Gray DO, [facility] ([phone]), at 02/29/2020 1:45 PM Lavern Membreno MD IMG DX ORDERABLES documented in this encounter Visit Diagnoses Diagnosis Abnormal digital rectal exam Other abnormal clinical finding documented in this encounter Care Teams Floatlight Loading Supervisor Relationship Specialty Start Date End Date Jesusita Law MD PCP - General Family Medicine 10/24/15 09/02/21 documented as of this encounter
--- OUTSIDE RECORDS SUMMARY | 2021-10-25 11:04 | XMS_ITS | Encounter Summary ---
:1945 Author Organization [facility] [place] [address] Care Team Providers Name Role Phone Jesusita Law MD Primary Care Provider [phone] Reason for Visit Diagnostic Test (Routine) - Closed Specialty Diagnoses / Procedures Referred By Contact Refer red To Contact Radiology Diagnoses Abnormal digital rectal exam Lavern Membreno MD [facility] Rad Mri Procedures MRI Pelvis wwo (Prostate) [address] [place], [place] [address] [place] [id number] Referral ID Status Reason Start Date Expiration Date Visits V isits Requested Authorized [id number] Closed Specialty 12/16/2019 06/14/2021 1 1 Service Requested Encounter Details Date Type Department Care Team Description 02/29/2020 Hospital Encounter MRI at [facility] Lavern Membreno MD [address] [address] [phone] Social History Tobacco Use Types Packs/Day Years [...] Office Visit Cardiac Surgery Abdon Dawson MD [facility] CARDIOTHORACIC S [place], [place] [address] (Wo rk) documented as of this encounter Procedures Procedure Name Priority Date/Time Associated Diagnosis Comme nts MRI PELVIS WWO Routine 02/29/2020 5:33 PM Abnormal digital Res ults for this (PROSTATE) EST rectal exam procedure are i n the results section. documented in this encounter Visit Diagnoses Not on filedocumented in this encounter Administered Medications Inactive Administered Medications - up to 3 most recent administrations Medication Order MAR Action Action Date Dose Rate Site gadoterate meglumine (Dotarem) Given 02/29/2020 5:00 PM EST 22 m Ls (0.5 mMol/mL) injection solution 0.2 mL/kg/dose 0.2 mL/kg/dose, Intravenous, ONCE PRN, 1 dose, Starting on Thu02/29/20 at 1732, Until Thu02/29/20 at 1700, Per Protocol, Radiology Contrast, Routine documented in this encounter Care Teams Mule Driver Relationship Specialty Start Date End Date Jesusita Law MD PCP - General Family Medicine 10/24/15 09/02/21 documented as of this encounter
--- OUTSIDE RECORDS SUMMARY | 2021-10-25 11:04 | XMS_ITS | Encounter Summary ---
:1945 Author Organization [place] [address] Care Team Providers Name Role Phone Jesusita Law MD Primary Care Provider [phone] Encounter Details Date Type Department Care Team Description 09/10/2021 Surgery [facility] Vinod Miguel, CARDIAC CATHETERIZATION [facility] [place] [address] CARDIOLOGY DEPT. [phone] [place], [place] [address] (Wo rk) Social History Tobacco Use Types Packs/Day Years [...] Sign Reading Time Taken Comments Blood Pressure 140/71 09/10/2021 11:30 AM EDT Pulse 76 09/10/2021 11:30 AM EDT Temperature 36 ??C (96.8 ??F) 09/10/2021 9:45 AM EDT Respiratory Rate 27 09/10/2021 11:30 AM EDT Oxygen Saturation 98% 09/10/2021 11:30 AM EDT Inhaled Oxygen Concentration - - [...] by your doctor, do not take any mifw-aru-umhixkn medicines or herbal preparations without first discussing this with your doctor or pharmacist. There is the possibility of side effects and interactions when these are combined. Follow Up Care Who to call with questions or problems If there are any questions or problems that you think might be related to your cardiac cath or angioplasty, contact the principal automation engineer rehabilitation manager by calling [facility] at . Patient InstructionsAnnalise Dimas MD [...] appointments: During 8am-5pm Thursday through Thursday call [phone] and ask to speak to the cardiology clinic triage nurse. All other times call [phone] and ask to speak to the sprinkler fitter helper rehabilitation manager. Return to work: 1 day Driving: No driving 1 day Diet: Heart healthy, low carbohydrate Follow up Appointments: - Follow up with your Medical Record Assistant and Cardiac Surgery - Your Primary Medical Record Assistant was updated with the results of your [...] as of this encounter Progress Notes Darron Radfrod RN - 09/10/2021 2:38 PM EDT Patient [...] from the original note were not included. [facility] [place] [address] [address] SAME DAY CARDIAC CATHETERIZATION LAB H&P ID: [...] as planned -consent signed Annalise Dimas MD Footwear Stitcher 09/09/2021 documented in this encounter Miscellaneous Notes Brief Op Note - Vinod Munoz MD - 09/10/2021 11:30 AM EDT Preliminary Cardiac Catheterization Procedure Note: Patient Name: Lalo Guerra : [id number] MR#: [id number] Case Date: 09/10/2021 Fell Cutter: Surgeon(s) and Role: * Vinod Munoz MD [...] Office Visit Cardiac Surgery Abdon Dawson MD [facility] CARDIOTHORACIC S [place], [place] [address] (Wo rk) documented as of [...] Laterality Volume Narrative 09/10/2021 11:54 AM EDT ?[facility] ? Cardiac Cathete rization/Intervention Report ? Patient Name: Lalo uGerra ? Procedure Date: 09/10/2021 ? A #: [id number] ? Primary Physician: Tammy, Vinod T ? Case #: [id number] ? File Name: [id number] ? Catheterization Order Number: [id number] ? [facility] ? Final Report [place], [place] ? Patient Name: ? Lalo R. Gra mmo ?ID#: ?[id number] ? : ?1945 ? Procedure Date: ? [...] procedure was Elective. The indication for ?the computer lab para professional visit is worsening angina. Chest pain symptom [...] left heart ?catheterization and ABG. ? Vinod Munoz, M.D. ? Electronically Signed by: Vinod Alvarado Devrijoselyn s, M.D. ? Report Finalized: 09/10/2021 ??11:46 ? Report Last Ammended: 09/10/2021 ??14:35 ? Vinod Munoz MD CARDIAC CATH ORDERABLES (ABNORMAL) Point of Care Blood Gas Historical (09/10/2021 10:46 AM EDT) [facility] Method Time Signature POC pH 7.42 7.35 - [facility] 7.45 [facility] POC PCO2 39 35 - 45 [facility] mmHg [facility] POC PO2 96 85 - 104 [facility] LABORATORY POC Base Excess 1.0 -3.0 - 3.0 [facility] K mmol/L [facility] POC HCO3 25.1 20.0 - [facility] 26.0 [facility] mmol/[facility] POC Sodium 140 135 - 145 [facility] mmol/L [facility] POC Potassium 3.8 3.5 - 5.0 [facility] mmol/L [facility] POC Ionized Ca 1.16 1.15 - [facility] 1.33 [facility] mmol/[facility] POC Hematocrit 40.0 40.0 - [facility] 51.0 % [facility] POC Calc Hgb 13.6 (L) 13.7 - [facility] 17.5 g/dL [facility] Comment: The calculation of hemoglobin f rom hematocrit assumes a normal MCHC. POC Bgas Loc CC LAB [facility] Specimen Anatomical Collection Method Collection Time Receive d Time (Source) Location / / Volume Laterality Blood 09/10/2021 10:46 09/12/2021 AM EDT 12:00 PM EDT Vinod Munoz MD CHEMISTRY ORDERABLES Performing Organization Address City/State/Z[place] [address] (ABNORMAL) Differential, Automated (09/10/2021 10:05 AM EDT) Patholo gist Method Time Signature Neutrophils % 59.7 % [facility] Neutr Abs (ANC) 4.87 1.70 - [facility] 6.10 [facility] x10(3)/[facility] LABORATORY Lymphocytes % 24.0 % [facility] Lymphocytes Abs 2.0 0.9 - 3.2 [facility] x10(3)/[facility] LABORATORY Monocytes % 12.0 % [facility] Monocyte Abs 1.0 (H) 0.3 - 0.9 [facility] x10(3)/[facility] LABORATORY Eosinophils % 2.8 % [facility] Eosinophils Abs 0.2 0.0 - 0.4 [facility] x10(3)/[facility] LABORATORY Basophils % 1.0 % [facility] Basophils Abs 0.1 0.0 - 0.1 [facility] x10(3)/[facility] LABORATORY Immature Gran % 0.50 % [facility] Comment: Immature granulocytes(IG's)percentage an d absolute count will include metamyelocytes, myelocytes, and promyelo cytes. Blood smears from CBCs yielding IG's will be scanned manually for concor dance. If this scan disagrees with the automated IG or if promyelocytes are not ed, a manual differential will be performed. Anna Gran Abs 0.04 0.00 - 0.04 x10(3)/[facility] LABORATORY Specimen Anatomical Collection Method Collection Time Receive d Time (Source) Location / / Volume Laterality Blood 09/10/2021 10:05 09/10/2021 AM EDT 10:20 AM EDT Resulting Agency Comment Spec In Lab Vinod Munoz MD HEMATOLOGY ORDERABLES Performing Organization Address City/State/ZIP Code Phon e Number [place] [phone] [facility] [address] (ABNORMAL) Hemogram (09/10/2021 10:05 AM EDT) Analysis Performed At Path logist Time Signature WBC 8.2 4.0 - 9.5 [facility] x10(3)/[facility] LABORATORY RBC 4.81 4.58 - [facility] PEMA 5.54 [facility] x10(6)/[facility] LABORATORY Hemoglobin 13.6 (L) 13.7 - [place] [facility] 16.5 g/dL [facility] Hematocrit 41.3 40.5 - [facility] 48.5 % [facility] MCV 85.9 82.9 - [facility] 93.1 [facility] LABORATORY MCH 28.3 27.5 - [facility] pg [facility] MCHC 32.9 32.0 - [facility] 35.7 g/dL [facility] Platelets 230 145 - 357 [facility] x10(3)/[facility] LABORATORY RDWSD 43.5 36.0 - [facility] 45.0 [facility] RDWCV 13.8 11.4 - [facility] 13.8 % [facility] MPV 9.8 7.6 - 12.9 [facility] LABORATORY nRBC % Auto 0.0 % [facility] nRBC Abs Auto 0.000 0.000 - [facility] 0.000 [facility] x10(3)/[facility] LABORATORY Specimen Anatomical Collection Method Collection Time Receive d Time (Source) Location / / Volume Laterality Blood 09/10/2021 10:05 09/10/2021 AM EDT 10:20 AM EDT Resulting Agency Comment Spec In Lab Vinod Munoz MD HEMATOLOGY ORDERABLES Performing Organization Address City/State/[place] [address] (ABNORMAL) Prothrombin Time (09/10/2021 10:05 AM EDT) P athologist Signature PT 13.2 (H) 9.4 - 12.5 [facility] LABORATORY INR 1.2 [facility] Comment: An INR <2.0 indicates [...] Organization Address City/State/[place] [address] (ABNORMAL) BMP w/fasting Glucose (09/10/2021 10:05 AM EDT) athologist Signature Glucose 141 (H) 65 - 99 [facility] Fasting mg/dL [facility] Comment: ?Fasting* Glucose Interpretive C [...] of Diabetes Mellitus, Position Statement from the [place] [employer]. ??Diabete s Care, Volume 33, Supplement 1, Feb 2009 BUN 17 10 - 20 mg/dL [facility] Creatinine 0.90 0.80 - 1.50 mg/dL [facility] Sodium 140 135 - 145 mmol/L [facility] Potassium 4.0 3.5 - 5.0 mmol/L [facility] Comment: Please note: ??Patients with WBC >100,00 0 may have falsely elevated Potassium levels. ??For accurate Potassium quantif ication in these patients send serum separator tube (gold top) for subsequent determinations. ??Contact the Clinical Chemistry Laboratory if there are any qu estions. Chloride 102 98 - 107 mmol/L [facility] CO2 26 22 - 31 mmol/L [facility] Anion Gap 12 5 - 15 mmol/L [facility] Calcium 9.1 8.5 - 10.5 mg/dL [facility] Estimated GFR 90 >=60 mL/min/1.73 m?? [facility] Comment: This patient's estimated GFR [...] Organization Address City/State/[place] [address] EKG 12 Lead (09/10/2021 10:04 AM EDT) Component Value Ref Range Test Analysis Performed Pathologis t Method Time At Signature Ventricular rate 66 BPM MUSE SYSTEM Atrial Rate 85 BPM MUSE SYSTEM QRS Duration 190 ms MUSE SYSTEM Q-T Interval 508 ms MUSE SYSTEM QTC Calculated 532 ms MUSE SYSTEM (Bezet) Calculated R Gilman -96 degrees MUSE SYSTEM Calculated T Gilman 96 degrees MUSE SYSTEM INTERPRETATION Ventricular-paced rhythm [...] Signature POC Glucose 128 65 - 199 [facility] mg/dL [facility] Comment: Supplemental ranges: <140 mg/dL before meals <180 mg/dL all other times of the day Specimen Anatomical Collection Method Collection Time Receive d Time (Source) Location / / Volume Laterality Blood 09/10/2021 9:45 AM 9:45 EDT AM EDT Vinod Munoz MD POINT OF CARE TEST ORDERABLE S Performing Organization Address City/State/ZIP [place] [address] documented in this encounter [...] MAR Action Action Date Dose Rate Site fentaNYL (pf) (50 mcg/mL) Given 09/10/2021 10:40 AM EDT 25 mcg Left Arm multi-dose injection ONCE PRN, Starting on Thu09/10/21 at 1040, Until Thu09/10/21 at 1119, Intra-Operative (Intra-Procedure), Routine heparin (porcine) (1,000 Given 09/10/2021 10:47 AM EDT 7,000 Uni ts Left Arm units/mL) injection ONCE PRN, Starting on Thu09/10/21 at 1047, Until Thu09/10/21 at 1119, Cath (Intra-Procedure), Routine lidocaine (Xylocaine) 1% (10 mg/mL) Given 09/10/2021 10:42 AM ED T 3 mLs Right Arm injection ONCE PRN, Starting on Thu09/10/21 at 1042, Until Thu09/10/21 at 1119, Cath (Intra-Procedure), Routine midazolam (pf) (Versed) (1 mg/mL) Given 09/10/2021 10:40 AM EDT 1 mg Left Arm multi-dose injection ONCE PRN, Starting on Thu09/10/21 at 1040, Until Thu09/10/21 at 1119, Cath (Intra-Procedure), Routine nitroGLYcerin 100 mcg/mL intracoronary Given 09/10/2021 10:44 AM EDT 150 mcg dilution ONCE PRN, Starting on Thu09/10/21 at 1044, Until Thu09/10/21 at 1119, Cath (Intra-Procedure), Routine sodium chloride 0.9% infusion Continued Bag 09/10/2021 11:30 AM 100 mL/hr 100 mL/hr 100 mL/hr, Intravenous, EDT CONTINUOUS, Starting on Thu09/10/21 at 1145, Until Thu09/10/21 at 1343, Recovery (Recovery-Hospital Unit) verapamiL (Isoptin) (2.5 mg/mL) injectio n Given 09/10/2021 10:44 AM EDT 2.5 mg ONCE PRN, Starting on Thu09/10/21 at 1044, Until Thu09/10/21 at 1119, Administer over 2 Minutes, Cath (Intra-Procedure) documented in this encounter Active and Recently [...] injection (CANCELED) 1047 (Given - Provider: Jessie Snyder, TY) ONCE PRN, Starting on Thu09/10/21 at 1047 [...] (Intra-Procedure) documented in this encounter Care Teams Communications Department Chairperson Relationship Specialty Start Date End Date Jesusita Law MD PCP - General Family Medicine 09/03/[address] [place] [address] documented as of this encounter
--- OUTSIDE RECORDS SUMMARY | 2021-10-25 11:04 | XMS_ITS | Encounter Summary ---
:1945 Author Organization [facility] Address [facility] [place] [address] Care Team Providers Name Role Phone Jesusita Law MD Primary Care Provider [phone] Reason for Visit Auth/Cert Specialty Diagnoses / Procedures Referred By Contact Refer red To Contact Diagnoses Coronary artery disease involving kashia heart with unstable angina pectoris, unspecified vessel or lesion type cad Abdon Arreguin MD [facility] Procedures PRO CABG, ARTERIAL, SINGLE PRO CABG, ARTERY-VEIN, THREE PRO ENDOSCOPY W/VIDEO-ASST VEIN HARVEST, CABG @CABG, USING ARTERIAL GRAFT;SINGLE ARTERIAL GRAFT (WRVU 33.75) @CABG; 3 VENOUS GRAFTS & ARTERIAL GRAFT (WRVU 10.49) [facility] DR ALMEIDA HARVEST VEIN(S) FOR CABG (WRV U 0.31) [place] [address] Referral ID Status Reason Start Date Expiration Date Visits Requ ested Visits Authorized [id number] 1 1 Encounter Details Date Type Department Care Team Description 09/27/2021 Surgery Main Operating Room Abdon Arreguin, @ CABG, USING ARTERIAL Eveline Hayward MD GRAFT;SINGLE ARTERIAL Hospital [facility] GRAFT (WRVU 33.75) [facility] [address] [place] [address] SURGERY [phone] [place], [place] [address] (Wo rk) Social History Tobacco [...] Sign Reading Time Taken Comments Blood Pressure 148/80 09/27/2021 11:25 AM EDT Pulse 81 09/27/2021 6:15 PM EDT Temperature 35.5 ??C (95.9 ??F) 09/27/2021 5:30 PM EDT Respiratory Rate 16 09/27/2021 6:15 PM EDT Oxygen Saturation 100% 09/27/2021 6:15 PM EDT Inhaled Oxygen Concentration - - Weight 114.1 kg (251 lb 8 oz) 09/27/2021 11:25 AM EDT Height 170.2 cm (5' 7) 09/27/2021 11:25 AM EDT Body Mass Index 39.6 09/27/2021 11:25 AM EDT documented in this encounter Discharge Summaries Leilani Be PA - 10/03/2021 3:24 PM EDT Inpatient - Discharge Summary Patient Name: Richy Street Patient Age: 76 y.o. Birthdate: 1945 Language: Saudi Arabian Race: White Ethnicity: Not nor Admit Date: [...] below for details) Inpatient Provider Contact Information: [facility] Section of Cardiac Surgery [facility] [address] FAX [phone] Discharge Diagnoses (Hospital Problems) Primary Diagnoses: CAD Secondary Diagnoses: LLE Ischemia s/p urgent left SFA embolectomy Chronic AF Active Hospital Problems Diagnosis ??? 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 CATH LABS ??? PRO CABG, ARTERIAL, SINGLE N/A 09/27/2021 @CABG, USING ARTERIAL GRAFT;SINGLE ARTERIAL GRAFT (WRVU 33.75) performed by Abdon Arreguin MD at [facility] MAIN OR ??? PRO CABG, ARTERY-VEIN, THREE N/A 09/27/2021 @CABG; 3 VENOUS GRAFTS & ARTERIAL GRAFT (WRVU 10.49) performed by Abdon Arreguin MD at [facility] MAIN OR ??? PRO EMBLC/THRMBC FEMORAL POPLITEAL AORTO-ILIAC ARTERY Left 09/29/2021 EMBOLECTOMY OR THROMBECTOMY, FEMOROPOPLITEAL, AORTOILIAC ARTERY BY LEG INCISION (WRVU 19.48) performed by Joselito Washburn MD at [facility] OR ??? PRO ENDOSCOPY W/VIDEO-ASST VEIN HARVEST, CABG N/A 09/27/2021 ENDOSCOPIC HARVEST VEIN(S) FOR CABG (WRVU 0.31) performed by Abdon Arreguin MD at [facility] MAIN OR Prior To Admission Medications Medications [...] (NASACORT or NASACORT OTC) 55 mcg Aerosol, [place] 1 spray by Nasal route daily. 55 [...] s/p CABGx4 Richy Street was admitted to [facility] on 09/27/2021 via the Same Day [...] not take or discontinue any prescription or nygh-qmq-jbujtdr medications without asking your doctor or pharmacist [...] Abdon Arreguin and/or the Cardiac Surgery Physician Vegetable Farming Supervisor Team may be reached at . Weight: [...] Dr. Abdon Arreguin. You may use a Mangum Track or treadmill but avoid any pulling [...] friends, go to a movie, go to scientology, etc. Heavy activities: No hunting, skiing, jogging, snow shoveling, snowmobiling, lawn mowing, swimming, golf or tennis until after your return appointment with the surgeon. Do not ride motorcycles, WUT's tractors or horses. Avoid the use of [...] should resume a low fat, low cholesterol, [place] Heart [employer] Diet. Driving: No driving until [...] while being managed by your PCP and/or Pals Specialist. For future medication refills, please refer to your PCP and/or Pals Specialist after your discharge from our service. Thank [...] the outpatient Phase 2 Cardiac Rehabilitation at [facility]. The patient agrees to a referral to this program. The referral will be sent at discharge and the patient should be contacted by the Program within 1- 2 weeks from discharge. Future Appointments and Orders Future Appointments and Orders Future Appointments Provider Department Dept Phone 10/22/2021 1:[address] [facility] [place] ROOM 1 [place] [facility] [place]rive at: City [facility] Driver Area [phone] Please go to City [facility] Area ([place] Location). 10/22/2021 2:30 PM Abdon Arreguin MD Cardiac Surgery at [facility] [place]rive at: City [facility] Driver Area [phone] 11/05/2021 9:[address] [facility] DX ED ROOM 1 XRay [place] [facility] Arrive at: City [facility] Driver Area [phone] Please go to City Route Driver Area ([place] Location). 11/05/2021 10:40 AM Abdon Arreguin MD Cardiac Surgery [place] [facility] [place]rive at: City [facility] [place] Area [phone] Future Orders Complete By Expires TONEY, legs, multiple levels [VAS8 Custom] 10/08/2021 (Approximate) 11/01/2021 Process Instructions: There is no in-house vascular chemistry laboratory technician available on weeknights (5pm-8am), weekends, or holidays. IF THIS IS A REQUEST FOR AN EMERGENT STUDY DURING THOSE HOURS, please have the senior provider responsible for the patient page the Vascular Surgery Fellow/Senior Resident catering operations manager to discuss options. Scheduling Instructions: Questions: Indication for study/signs & symptoms: s/p LLE embolectomy Question to be answered: ?perfusion Preferred location[place] [facility] [place] Referral to Cardiac Rehab [[id number] Custom] As directed Process Instructions: If no progress note charted, please enter Clinical details in comments. Scheduling Instructions: Questions: My question or request is: CABG- cardiac rehab at [facility] Referral to Home Health [REF34 Custom] As directed Process Instructions: If no progress note charted, please enter Clinical details in comments. Scheduling Instructions: Comments: Please evaluate Richy Street for admission to Home Health. [address] [facility] [address] (home) Date of : 1945 DOCUMENTATION FOR VNA SERVICES (INCLUDING THOSE PATIENTS WITH MEDICARE COVERAGE REQUIRING HOME VNA SERVICES AND/OR HOSPICE SERVICES) PATIENT'S LOCATION: Richy [address] [facility] [address] (home) No relevant phone numbers on file. Wood Cabinet Finisher's Name: Self In discussion with the attending physician, it is certified that this patient is under their care and that they, or a Nurse Practitioner, or Physician Vegetable Farming Supervisor who is working directly with them, had [...] need for servicesas follows: HOME HEALTH AGENCY: [facility] in [place], [place] and [phone] RN orders: Cardiopulmonary assessment, incisional assessment, assess [...] issues please call the Cardiology Office at [phone] FOR MEDICARE ONLY: In discussion with the [...] OR AFTER 10/07/21 Signed: Leilani Be PA-C [facility] Section of Cardiac Surgery [facility] [phone] FAX [phone] Date: 10/03/2021 CC: Jesusita Law MD Unknown [...] not take or discontinue any prescription or ptjm-nxi-icsxhnf medications without asking your doctor or pharmacist [...] Abdon Arreguin and/or the Cardiac Surgery Physician Vegetable Farming Supervisor Team may be reached at . Weight: [...] Dr. Abdon Arreguin. You may use a Mangum Track or treadmill but avoid any pulling [...] friends, go to a movie, go to scientology, etc. Heavy activities: No hunting, skiing, jogging, snow shoveling, snowmobiling, lawn mowing, swimming, golf or tennis until after your return appointment with the surgeon. Do not ride motorcycles, WUT's tractors or horses. Avoid the use of [...] should resume a low fat, low cholesterol, [place] Heart Association Diet. Driving: No driving until [...] while being managed by your PCP and/or Pals Specialist. For future medication refills, please refer to your PCP and/or Pals Specialist after your discharge from our service. Thank [...] OTC) 55 mcg Aerosol, spray into both [place] nostrils once a day as needed for [...] hernandez in reach following visit. Assessment: Richy Jose Oakescarla was seen today for physical therapy treatment. [...] in recliner post-d/c 3. Pt. to perform fcn-dt-xaggo transfers with modified independence using a front [...] plan as stated. Time IN / OUT: 9649-6876 Total Minutes, Physical Therapy: 36 Fely Mejias PT , DPT Pager: [phone] Physical Therapy Inpatient Rehabilitation Department Leilani Be [...] PCI performed by Vinod Hassan MD at [facility] CATH LABS ??? PRO CABG, ARTERIAL, SINGLE N/A 09/27/2021 @CABG, USING ARTERIAL GRAFT;SINGLE ARTERIAL GRAFT (WRVU 33.75) performed by Abdon Arreguin MD at [facility] MAIN OR ??? PRO CABG, ARTERY-VEIN, THREE N/A 09/27/2021 @CABG; 3 VENOUS GRAFTS & ARTERIAL GRAFT (WRVU 10.49) performed by Abdon Arreguin MD at [facility] MAIN OR ??? PRO EMBLC/THRMBC FEMORAL POPLITEAL AORTO-ILIAC ARTERY Left 09/29/2021 EMBOLECTOMY OR THROMBECTOMY, FEMOROPOPLITEAL, AORTOILIAC ARTERY BY LEG INCISION (WRVU 19.48) performed by Joselito Washburn MD at [facility] MAIN OR ??? PRO ENDOSCOPY W/VIDEO-ASST VEIN HARVEST, CABG N/A 09/27/2021 ENDOSCOPIC HARVEST VEIN(S) FOR CABG (WRVU 0.31) performed by Abdon Arreguin MD at 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 WNL/WFL ?? corrective lenses multimedia technician Communication: WFL Range of motion, strength, coordination: [...] Occupational Therapy: 40 (1 low complexity eval (5510-2642)) OT Evaluation Code Rationale: ?? Diagnosis & [...] and measurable assessment of functional outcome. Pager: [phone] Arlene Simms OT 10/02/2021 Occupational Therapy Rehabilitation [...] ??? PACEMAKER IMPLANT ? ? PRG CATH [facility] LEFT HEART CATH & ARTS W/INJ & ANGIO IMG S&I N/A 09/10/2021 CORONARY ANGIOGRAPHY; W LHC,POSSIBLE PCI performed by Vinod Hassan MD at [facility] CATH LABS ??? PRO CABG, ARTERIAL, SINGLE N/A 09/27/2021 @CABG, USING ARTERIAL GRAFT;SINGLE ARTERIAL GRAFT (WRVU 33.75) performed by Abdon Arreguin MD at [facility] MAIN OR ??? PRO CABG, ARTERY-VEIN, THREE N/A 09/27/2021 @CABG; 3 VENOUS GRAFTS & ARTERIAL GRAFT (WRVU 10.49) performed by Abdon Arreguin MD at [facility] MAIN OR ??? PRO EMBLC/THRMBC FEMORAL POPLITEAL AORTO-ILIAC ARTERY Left 09/29/2021 EMBOLECTOMY OR THROMBECTOMY, FEMOROPOPLITEAL, AORTOILIAC ARTERY BY LEG INCISION (WRVU 19.48) performed by Joselito Washburn MD at [facility] OR ??? PRO ENDOSCOPY W/VIDEO-ASST VEIN HARVEST, CABG N/A 09/27/2021 ENDOSCOPIC HARVEST VEIN(S) FOR CABG (WRVU 0.31) performed by Abdon Arreguin MD at [facility] MAIN OR Active Non-Hospital Problems Diagnosis ??? [...] standing without exhibiting loss ofbalance & no lhujjr-fu-xdeckyo observed during gait Therapeutic Exercise: 6 repetitions [...] mobilization & ambulation with nursing & mobility parts identification technician staff. Discharge Recommendations: Based on the [...] to sternal precautions 3. Pt. to perform xda-ke-pvzts transfers with modified independence using a front [...] in this evaluation. Time IN / OUT: 3109-4366 Total Minutes, Physical Therapy: 40 Fely Mejias DPT Pager: [phone] Physical Therapy Inpatient Rehabilitation Department KateSam PA [...] Ext: warm, 1-2+ LE edema. +signals Incisions: DIRECTOR OF APPLICATION DEVELOPMENT CDI Tubes/Lines/Drains: PIV I/O last 3 completed [...] where referrals are placed. Provided patient with [facility] Star Quality Rating for Home care Patient requests referral to : [facility] [place] [id number] and Expected date of discharge: 10/04/2021. Referral routed to the Arabic Professor for matching with agency/vendor and to provide [...] PT - 09/30/2021 4:34 PM EDT 09/30/21 4844 Evaluation & Treatment Document Type contact Total [...] Motor function intact in extremities, bilaterally symmetric. PITER Street is a 76 y.o. male status [...] AM rounds BEN To 09/28/2021 Cherrie Dunn, WATER LEAK REPAIRER - 09/27/2021 8:36 PM EDT Protocol: CTICU [...] manage pt in CTICU protocol. Respiratory Pager# [phone] documented in this encounter H&P Notes Abdon [...] List Diagnosis ??? 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 CATH LABS Family History: History reviewed. No [...] List Diagnosis ??? 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 CATH LABS Family History: History reviewed. No [...] & Follow-up Care: Contact information for follow-up [facility], [address] [address] Transportation: family or friend will provide Functional [...] Type: *No Product type* / Secondary Insurance: [employer] Prescription Coverage: Yes This plan was formulated with input from patient and team. All are in agreement with plan. I have verbally reviewed Medicare Discharge Rights with patient. Patient verbalizes understanding ofright to appeal this discharge if feeling not medically ready. Offered a copy of this letter. Stacey GAMEZ RN Phone: [phone] Pager: [phone] Consult Note - Krista Godoy RN - 10/02/2021 11:04 AM EDT [facility] [place] [facility]ILITATION Richy Street was seen today regarding participation in the outpatient Phase 2 Cardiac Rehabilitation at [facility]. The patient agrees to a referral [...] Is home with VNA services Agency Referrals: [facility] in [place], [place] and [phone] Transportation: Family Barriers to discharge: None Plan going forward: Care Management will continue to follow and assist with discharge planning and coordination of care as indicated. Anticipated Date of Discharge: 10/06/2021 Office of Care Management Surgery Team Marketing Producer [email or web address] Pager #[phone] Consult Note - Sheila Thakkar MD - 10/01/2021 10:13 PM EDT [facility] Department of Surgery Inpatient Consult Note [...] Thakkar MD - 09/30/2021 12:59 PM EDT [facility] Department of Surgery Inpatient Consult Note [...] Operative Note Patient Name: Richy Street : [id number] MR#: [id number] Case Date: 09/29/2021 Surgeon: Surgeon(s) and Role: [...] Loss: 352 mL Specimens removed during surgery: [facility] Fluids: Intraprocedure Crystalloid Total Intake Lactated Ringers [...] Washburn MD - 09/29/2021 1:35 PM EDT [facility] Operative Note Patient Name: Richy Street : [id number] MR#: [id number] Case Date: 09/29/2021 Surgeon: Surgeon(s) and Role: [...] with vessel loops. The patient was given 44535 units of intravenous heparin, which was allowed [...] Gaspar MD - 09/29/2021 11:07 AM EDT [facility] Department of Surgery Inpatient Consult Note [...] PCI performed by Vinod Hassan MD at [facility] CATH LABS ??? PRO CABG, ARTERIAL, SINGLE N/A 09/27/2021 @CABG, USING ARTERIAL GRAFT;SINGLE ARTERIAL GRAFT (WRVU 33.75) performed by Abdon Arreguin MD at [facility] MAIN OR ??? PRO CABG, ARTERY-VEIN, THREE N/A 09/27/2021 @CABG; 3 VENOUS GRAFTS & ARTERIAL GRAFT (WRVU 10.49) performed by Abdon Arreguin MD at [facility] MAIN OR ??? PRO ENDOSCOPY W/VIDEO-ASST VEIN HARVEST, CABG N/A 09/27/2021 ENDOSCOPIC HARVEST VEIN(S) FOR CABG (WRVU 0.31) performed by Abdon Arreguin MD at [facility] MAIN OR Medications No current facility-administered medications [...] (NASACORT or NASACORT OTC) 55 mcg Aerosol, [place] 1 spray by Nasal route daily. 55 [...] If you have any questions, please page [phone] (day/week) [phone] (night/weekend). [x] Consult service to continue to [...] surrogate would be surrogate decision maker per [place] surrogate decision making law. (Only good for 180 days) Any patient receiving care in [place] must abide by [place] law. The hierarchy for surrogate decision making [...] (i) The agent with financial power of prosecuting attorney or a conservator appointed in accordance [...] Current DME: none Home Address as: [address] [place] [phone] Social & Family Supports: All names listed below confirmed with patient as current and correct Extended Emergency Contact Information Primary Emergency Contact: Vy Street Address: [address] [place] [phone] [facility] Relation: Spouse Current Care Provided by: [...] Health/Prescription Coverage: Primary Insurance: MEDICARE Secondary Insurance: STATE [employer] Secondary Insurance? (Only Medicare A&B): Yes ; Prescription Coverage: Yes [facility] Status: Patient is a : No Primary Care Provider: Jesusita Law MD [phone] Patient/Caregiver Goals of Treatment: Potential Needs for [...] 09/27/2021 1:49 PM EDT 09/29/2021 Richy Garcia Charlie 1945 [id number] Preoperative Diagnosis: Coronary artery disease Unstable Angina Postoperative Diagnosis: Coronary artery diseaseUnstable Angina Procedure: CABG times 4: SOTO to LAD, SVG to diag and om, svg to rca. Endoscopic vein harvest Surgeon: Abdon Arreguin M.D. Vegetable Farming Supervisor: Mateo thornton Anesthesia: General endotracheal anesthesia Drains: [...] Operative Note Patient Name: Richy Street : [id number] MR#: [id number] Case Date: 09/27/2021 - 09/28/2021 Surgeon: Surgeon(s) and Role: * Abdon Arreguin MD - Primary * Sam Kate PA - Physician Vegetable Farming Supervisor * Davie Galindo PA - Physician Vegetable Farming Supervisor Preoperative diagnosis: cad Postoperative diagnosis: CAD Procedure(s) [...] Radiology 11/05/2021 Office Visit Cardiac Surgery Abdon rAreguin MD [facility] CARDIOTHORACIC [place] [address] (Wo rk) Scheduled Referrals Name Type Priority [...] procedure are i n the results section. EMBOLECTOMY/THROMBECT, Routine 09/29/2021 12:21 FEMOROPOPLITEAL, PM EDT [...] disease involving p rocedure are in OR kashia heart with the result s unstable angina section. pectoris, unspecified vessel or lesion type ENDOSCOPIC HARVEST 09/27/2021 12:51 Coronary artery VEIN(S) FOR CABG (VU PM EDT disease involving 0.31) kashia heart with unstable angina pectoris, unspecified vessel or lesion type @CABG; 3 VENOUS GRAFTS 09/27/2021 12:51 Coronary arter y & ARTERIAL GRAFT (WRVU PM EDT disease involving 10.49) kashia heart with unstable angina pectoris, unspecified vessel or lesion type @CABG, USING ARTERIAL 09/27/2021 12:51 Coronary artery GRAFT;SINGLE ARTERIAL PM EDT disease involving GRAFT (WRVU 33.75) kashia heart with unstable angina pectoris, unspecified vessel or lesion type PREPARE RBC STAT 09/27/2021 12:05 Results for this PM EDT procedure are i n the results section. POCT GLUCOSE Routine 09/27/2021 11:37 Results for this AM EDT procedure are i n the results section. ENDOSCOPIC HARVEST Routine 09/27/2021 10:15 Coronary artery VEIN(S) FOR CABG AM EDT disease involving kashia heart with unstable angina pectoris, unspecified vessel or lesion type @CABG,USING ARTERIAL Routine 09/27/2021 10:15 Coronary artery GRAFT;SINGLE ARTERIAL AM EDT disease involving GRAFT kashia heart with unstable angina pectoris, unspecified vessel or lesion type @CABG;3 VENOUS GRAFTS & Routine 09/27/2021 10:15 Coronary meghan ry ARTERIAL GRAFT AM EDT disease involving kashia heart with unstable angina pectoris, unspecified vessel or lesion type LAB SCAN 09/27/2021 12:00 Results for this AM EDT procedure are i n the results section. documented in this encounter Results TONEY, legs, multiple levels (10/22/2021 10:44 AM EDT) Component Value Ref Test Analysis Performed At [facility] Range Method Time Signature VB Text Department: Vascular Surgery Lab VASCUBASE Report Patient: [id number] (GRAMMO, RICHY) CPT: 44558 Referring Physician: ABDON ARREGUIN ?? Indications: S/p [...] / Volume Laterality 10/22/2021 10:44 AM EDT Adbon Arreguin MD VASCULAR ORDERABLES Performing Organization Address City/State/ZIP Code Phon e Number VASCUBASE POCT Glucose (10/03/2021 11:35 AM EDT) P athologist Signature POC Glucose 114 65 - 199 [facility] mg/dL [facility] Comment: Supplemental ranges: <140 mg/dL before meals <180 mg/dL all other times of the day Specimen Anatomical Collection Method Collection Time Receive d Time (Source) Location / / Volume Laterality Blood 10/03/2021 11:35 10/03/2021 AM EDT 11:35 AM EDT Abdon Arreguin MD POINT OF CARE TEST ORDERABLE S Performing Organization Address City/State/[place] [address] POCT Glucose (10/03/2021 7:23 AM EDT) athologist Signature POC Glucose 122 65 - 199 [facility] mg/dL [facility] Comment: Supplemental ranges: <140 mg/dL before meals <180 mg/dL all other times of the day Specimen Anatomical Collection Method Collection Time Receive d Time (Source) Location / / Volume Laterality Blood 10/03/2021 7:23 AM 7:23 EDT AM EDT Abdon Arreguin MD POINT OF CARE TEST ORDERABLE S Performing Organization Address City/[facility]/[place] [address] Heparin (unfractionated) Level (10/03/2021 4:26 AM EDT) athologist Signature Heparin UFH 0.27 IU/mL [facility] Comment: Heparin (anti-Xa) levels [...] Organization Address City/State/[place] [address] (ABNORMAL) Differential, Automated (10/03/2021 4:26 AM EDT) Patholo gist Method Time Signature Neutrophils % 63.0 % [facility] Neutr Abs (ANC) 6.33 (H) 1.70 - [facility] 6.10 [facility] x10(3)/[facility] LABORATORY Lymphocytes % 18.6 % [facility] Lymphocytes Abs 1.9 0.9 - 3.2 [facility] x10(3)/[facility] LABORATORY Monocytes % 11.3 % [facility] Monocyte Abs 1.1 (H) 0.3 - 0.9 [facility] x10(3)/[facility] LAB[facility]ORY Eosinophils % 5.9 % [facility] Eosinophils Abs 0.6 (H) 0.0 - 0.4 [facility] x10(3)/[facility] Basophils % 0.5 % [facility] Basophils Abs 0.0 0.0 - 0.1 [facility] x10(3)/[facility] LABORATORY Immature Gran % 0.70 % [facility] Comment: Immature granulocytes(IG's)percentage an d absolute count will include metamyelocytes, myelocytes, and promyelo cytes. Blood smears from CBCs yielding IG's will be scanned manually for concor dance. If this scan disagrees with the automated IG or if promyelocytes are not ed, a manual differential will be performed. Anna Gran Abs 0.07 (H) 0.00 - 0.04 x10(3)/[facility] LABORATORY Specimen Anatomical Collection Method Collection Time Receive d Time (Source) Location / / Volume Laterality Blood 10/03/2021 4:26 AM 4:41 EDT AM EDT Resulting Agency Comment Spec In Lab Leilani CONTRERAS HEMATOLOGY ORDERABLES Performing Organization Address City/State/[place] [address] (ABNORMAL) Hemogram (10/03/2021 4:26 AM EDT) Analysis Performed At [facility] logist Time Signature WBC 10.0 (H) 4.0 - 9.5 [facility] x10(3)/[facility] LABORATORY RBC 3.35 (L) 4.58 - [facility] 5.54 [facility] x10(6)/[facility] LABORATORY Hemoglobin 9.8 (L) 13.7 - [facility] 16.5 g/dL [facility] LABORATORY Hematocrit 29.4 (L) 40.5 - [facility] 48.5 % [facility] LABORATORY MCV 87.8 82.9 - [facility] 93.1 [facility] LABORATORY MCH 29.3 27.5 - [facility] 32.1 pg [facility] LABORATORY MCHC 33.3 32.0 - [facility] 35.7 g/dL [facility] LABORATORY Platelets 238 145 - 357 [facility] x10(3)/[facility] LABORATORY RDWSD 46.2 (H) 36.0 - [facility] 45.0 [facility] LABORATORY RDWCV 14.4 (H) 11.4 - [facility] 13.8 % [facility] LABORATORY MPV 11.0 7.6 - 12.9 [facility] LABORATORY nRBC % Auto 0.0 % [facility] LABORATORY nRBC Abs Auto 0.000 0.000 - [facility] 0.000 [facility] x10(3)/[facility] LABORATORY Specimen Anatomical Collection Method Collection Time Receive d Time (Source) Location / / Volume Laterality Blood 10/03/2021 4:26 AM 4:41 EDT AM EDT Resulting Agency Comment Spec In Lab Leilani CONTRERAS HEMATOLOGY ORDERABLES Performing Organization Address City/State/[place] [address] (ABNORMAL) Prothrombin Time (10/03/2021 4:26 AM EDT) P athologist Signature PT 13.7 (H) 9.4 - 12.5 [facility] LABORATORY INR 1.2 [facility] LABORATORY Comment: An INR <2.0 indicates [...] Arreguin MD HEMATOLOGY ORDERABLES Performing Organization Address City/[facility]/[place] [address] Potassium (10/03/2021 4:26 AM EDT) athologist Signature Potassium 4.1 3.5 - 5.0 [facility] mmol/L [facility] LABORATORY Comment: Please note: ??Patients with [...] Arreguin MD CHEMISTRY ORDERABLES Performing Organization Address [facility]/[place] [address] POCT Glucose (10/02/2021 8:15 PM EDT) athologist Signature POC Glucose 151 65 - 199 [facility] mg/dL [facility] LABORATORY Comment: Supplemental ranges: <140 mg/dL before meals <180 mg/dL all other times of the day Specimen Anatomical Collection Method Collection Time Receive d Time (Source) Location / / Volume Laterality Blood 10/02/2021 8:15 PM 2 8:15 EDT PM EDT Abdon Arreguin MD POINT OF CARE TEST ORDERABLE S Performing Organization Address City/[facility]/[place] [address] POCT Glucose (10/02/2021 4:14 PM EDT) athologist Signature POC Glucose 140 65 - 199 [facility] mg/dL [facility] LABORATORY Comment: Supplemental ranges: <140 mg/dL before meals <180 mg/dL all other times of the day Specimen Anatomical Collection Method Collection Time Receive d Time (Source) Location / / Volume Laterality Blood 10/02/2021 4:14 PM 2 4:14 EDT PM EDT Abdon Arreguin MD POINT OF CARE TEST ORDERABLE S Performing Organization Address City/[facility]/ZIP Code Phon e Number [place] [id number]OSP[address] LAB[address] Potassium (10/02/2021 2:28 PM EDT) athologist Signature Potassium 4.2 3.5 - 5.0 [facility] mmol/L [facility] LABORATORY Comment: Please note: ??Patients with [...] Arreguin MD CHEMISTRY ORDERABLES Performing Organization Address City/[facility]/[place] [address] POCT Glucose (10/02/2021 10:55 AM EDT) athologist Signature POC Glucose 153 65 - 199 [facility] mg/dL [facility] LABORATORY Comment: Supplemental ranges: <140 mg/dL before meals <180 mg/dL all other times of the day Specimen Anatomical Collection Method Collection Time Receive d Time (Source) Location / / Volume Laterality Blood 10/02/2021 10:55 10/02/2021 AM EDT 10:55 AM EDT Abdon Arreguin MD POINT OF CARE TEST ORDERABLE S Performing Organization Address City/State/[place] [address] POCT Glucose (10/02/2021 7:33 AM EDT) athologist Signature POC Glucose 143 65 - 199 [facility] mg/dL [facility] LABORATORY Comment: Supplemental ranges: <140 mg/dL before meals <180 mg/dL all other times of the day Specimen Anatomical Collection Method Collection Time Receive d Time (Source) Location / / Volume Laterality Blood 10/02/2021 7:33 AM 2 7:33 EDT AM EDT Abdon Arreguin MD POINT OF CARE TEST ORDERABLE S Performing Organization Address City/[facility]/[place] [address] Heparin (unfractionated) Level (10/02/2021 3:59 AM EDT) athologist Signature Heparin UFH 0.24 IU/mL [facility] LABORATORY Comment: Heparin (anti-Xa) levels [...] Arreguin MD HEMATOLOGY ORDERABLES Performing Organization Address City/[facility]/[place] [address] (ABNORMAL) Differential, Automated (10/02/2021 3:59 AM EDT) Patholo gist Method Time Signature Neutrophils % 62.1 % [facility] LABORATORY Neutr Abs (ANC) 6.87 (H) 1.70 - [facility] 6.10 [facility] x10(3)/[facility] LABORATORY Lymphocytes % 18.4 % [facility] LABORATORY Lymphocytes Abs 2.0 0.9 - 3.2 [facility] x10(3)/[facility] LABORATORY Monocytes % 12.9 % [facility] LABORATORY Monocyte Abs 1.4 (H) 0.3 - 0.9 [facility] x10(3)/[facility] LABORATORY Eosinophils % 5.1 % [facility] LABORATORY Eosinophils Abs 0.6 (H) 0.0 - 0.4 [facility] x10(3)/[facility] LABORATORY Basophils % 0.9 % [facility] LABORATORY Basophils Abs 0.1 0.0 - 0.1 [facility] x10(3)/[facility] LABORATORY Immature Gran % 0.60 % [facility] LABORATORY Comment: Immature granulocytes(IG's)percentage an d absolute count will include metamyelocytes, myelocytes, and promyelo cytes. Blood smears from CBCs yielding IG's will be scanned manually for concor dance. If this scan disagrees with the automated IG or if promyelocytes are not ed, a manual differential will be performed. Anna Gran Abs 0.07 (H) 0.00 - 0.04 x10(3)/[facility] LABORATORY Specimen Anatomical Collection Method Collection Time Receive d Time (Source) Location / / Volume Laterality Blood 10/02/2021 3:59 AM 4:25 EDT AM EDT Resulting Agency Comment Spec In Lab Leilani CONTRERAS HEMATOLOGY ORDERABLES Performing Organization Address City/State/[place] [address] (ABNORMAL) Hemogram (10/02/2021 3:59 AM EDT) Analysis Performed At Patho logist Time Signature WBC 11.1 (H) 4.0 - 9.5 [facility] x10(3)/[facility] LABORATORY RBC 3.62 (L) 4.58 - [facility] 5.54 [facility] x10(6)/[facility] LABORATORY Hemoglobin 10.3 (L) 13.7 - [facility] 16.5 g/dL [facility] LABORATORY Hematocrit 31.7 (L) 40.5 - [facility] 48.5 % [facility] LABORATORY MCV 87.6 82.9 - [facility] 93.1 [facility] LABORATORY MCH 28.5 27.5 - [facility] 32.1 pg [facility] LABORATORY MCHC 32.5 32.0 - [facility] 35.7 g/dL [facility] LABORATORY Platelets 190 145 - 357 [facility] x10(3)/[facility] LABORATORY RDWSD 45.9 (H) 36.0 - [facility] 45.0 [facility] LABORATORY RDWCV 14.4 (H) 11.4 - [facility] 13.8 % [facility] LABORATORY MPV 11.1 7.6 - 12.9 [facility] LABORATORY nRBC % Auto 0.0 % [facility] LABORATORY nRBC Abs Auto 0.000 0.000 - [facility] 0.000 [facility] x10(3)/[facility] LABORATORY Specimen Anatomical Collection Method Collection Time Receive d Time (Source) Location / / Volume Laterality Blood 10/02/2021 3:59 AM 4:25 EDT AM EDT Resulting Agency Comment Spec In Lab Leilani CONTRERAS HEMATOLOGY ORDERABLES Performing Organization Address City/State/[place] [address] (ABNORMAL) Prothrombin Time (10/02/2021 3:59 AM EDT) P athologist Signature PT 12.6 (H) 9.4 - 12.5 [facility] LABORATORY INR 1.1 [facility] LABORATORY Comment: An INR <2.0 indicates [...] Arreguin MD HEMATOLOGY ORDERABLES Performing Organization Address City/[facility]/[place] [address] (ABNORMAL) Potassium (10/02/2021 3:59 AM EDT) athologist Signature Potassium 3.4 (L) 3.5 - 5.0 [facility] mmol/L [facility] LABORATORY Comment: Please note: ??Patients with [...] Arreguin MD CHEMISTRY ORDERABLES Performing Organization Address [facility] [place] [address] POCT Glucose (10/01/2021 7:43 PM EDT) athologist Signature POC Glucose 152 65 - 199 [facility] mg/dL [facility] LABORATORY Comment: Supplemental ranges: <140 mg/dL before meals <180 mg/dL all other times of the day Specimen Anatomical Collection Method Collection Time Receive d Time (Source) Location / / Volume Laterality Blood 10/01/2021 7:43 PM 2 7:43 EDT PM EDT Abdon Arreguin MD POINT OF CARE TEST ORDERABLE S Performing Organization Address City/[facility]/[place] [address] POCT Glucose (10/01/2021 5:08 PM EDT) athologist Signature POC Glucose 131 65 - 199 [facility] mg/dL [facility] LABORATORY Comment: Supplemental ranges: <140 mg/dL before meals <180 mg/dL all other times of the day Specimen Anatomical Collection Method Collection Time Receive d Time (Source) Location / / Volume Laterality Blood 10/01/2021 5:08 PM 5:08 EDT PM EDT Abdon Arreguin MD POINT OF CARE TEST ORDERABLE S Performing Organization Address City/State/ZIP Code Phon e Number [address] POCT Glucose (10/01/2021 11:49 AM EDT) athologist Signature POC Glucose 196 65 - 199 [facility] mg/dL [facility] LABORATORY Comment: Supplemental ranges: <140 mg/dL before meals <180 mg/dL all other times of the day Specimen Anatomical Collection Method Collection Time Receive d Time (Source) Location / / Volume Laterality Blood 10/01/2021 11:49 10/01/2021 AM EDT 11:49 AM EDT Abdon Arreguin MD POINT OF CARE TEST ORDERABLE S Performing Organization Address City/State/ZIP Code Phon e Number [address] POCT Glucose (10/01/2021 7:54 AM EDT) athologist Signature POC Glucose 159 65 - 199 [facility] mg/dL [facility] LABORATORY Comment: Supplemental ranges: <140 mg/dL before meals <180 mg/dL all other times of the day Specimen Anatomical Collection Method Collection Time Receive d Time (Source) Location / / Volume Laterality Blood 10/01/2021 7:54 AM 7:54 EDT AM EDT Abdon Arreguin MD POINT OF CARE TEST ORDERABLE S Performing Organization Address City/State/[place] [address] Heparin (unfractionated) Level (10/01/2021 3:25 AM EDT) athologist Signature Heparin UFH 0.22 IU/mL [facility] LABORATORY Comment: Heparin (anti-Xa) levels [...] Organization Address City/State/ZIP Code Phon e Number [place] [id number] HOSPITAL LAB[address]ORY Drive (ABNORMAL) Differential, Automated (10/01/2021 3:25 AM EDT) [facility] gist Method Time Signature Neutrophils % 72.5 % [facility] LABORATORY Neutr Abs (ANC) 9.30 (H) 1.70 - [facility] 6.10 [facility] x10(3)/[facility] LABORATORY Lymphocytes % 12.3 % [facility] LABORATORY Lymphocytes Abs 1.6 0.9 - 3.2 [facility] x10(3)/[facility] LABORATORY Monocytes % 11.2 % [facility] LABORATORY Monocyte Abs 1.4 (H) 0.3 - 0.9 [facility] x10(3)/[facility] LABORATORY Eosinophils % 3.0 % [facility] LABORATORY Eosinophils Abs 0.4 0.0 - 0.4 [facility] x10(3)/[facility] LABORATORY Basophils % 0.5 % [facility] LABORATORY Basophils Abs 0.1 0.0 - 0.1 [facility] x10(3)/[facility] LABORATORY Immature Gran % 0.50 % [facility] LABORATORY Comment: Immature granulocytes(IG's)percentage an d absolute count will include metamyelocytes, myelocytes, and promyelo cytes. Blood smears from CBCs yielding IG's will be scanned manually for concor dance. If this scan disagrees with the automated IG or if promyelocytes are not ed, a manual differential will be performed. Anna Gran Abs 0.06 (H) 0.00 - 0.04 x10(3)/[facility] LABORATORY Specimen Anatomical Collection Method Collection Time Receive d Time (Source) Location / / Volume Laterality Blood 10/01/2021 3:25 AM 3:57 EDT AM EDT Resulting Agency Comment Spec In Lab Leilani CONTRERAS HEMATOLOGY ORDERABLES Performing Organization Address City/State/[place] [address] (ABNORMAL) Hemogram (10/01/2021 3:25 AM EDT) Analysis Performed At Patho logist Time Signature WBC 12.8 (H) 4.0 - 9.5 [facility] x10(3)/[facility] LABORATORY RBC 3.36 (L) 4.58 - [facility] 5.54 [facility] x10(6)/[facility] LABORATORY Hemoglobin 9.8 (L) 13.7 - [facility] 16.[facility] g/dL [facility] LABORATORY Hematocrit 29.4 (L) 40.5 - [facility] 48.5 % [facility] LABORATORY MCV 87.5 82.9 - [facility] 93.1 [facility] LABORATORY MCH 29.2 27.5 - [facility] 32.[address] [facility] MCHC 33.3 32.0 - [facility] 35.7 g/dL [facility] LABORATORY Platelets 170 145 - 357 [facility] x10(3)/[facility] LABORATORY RDWSD 45.3 (H) 36.0 - [facility] 45.0 [facility] LABORATORY RDWCV 14.2 (H) 11.4 - [facility] 13.8 % [facility] LABORATORY MPV 11.2 7.6 - 12.9 [facility] LABORATORY nRBC % Auto 0.0 % [facility] LABORATORY nRBC Abs Auto 0.000 0.000 - [facility] 0.000 [facility] x10(3)/[facility] LABORATORY Specimen Anatomical Collection Method Collection Time Receive d Time (Source) Location / / Volume Laterality Blood 10/01/2021 3:25 AM 2 3:57 EDT AM EDT Resulting Agency Comment Spec In Lab Leilani CONTRERAS HEMATOLOGY ORDERABLES Performing Organization Address City/[facility]/[place] [address] Prothrombin Time (10/01/2021 3:25 AM EDT) P athologist Signature PT 12.4 9.4 - 12.5 [facility] LABORATORY INR 1.1 [facility] LABORATORY Comment: An INR <2.0 indicates [...] Organization Address City/State/[place] [address] (ABNORMAL) Potassium (10/01/2021 3:25 AM EDT) P athologist Signature Potassium 3.4 (L) 3.5 - 5.0 [facility] mmol/L [facility] LABORATORY Comment: Please note: ??Patients with [...] Arreguin MD CHEMISTRY ORDERABLES Performing Organization Address City/[facility]/ZIP Code Phon e Number [address] Heparin (unfractionated) Level (09/30/2021 8:23 PM EDT) athologist Signature Heparin UFH 0.24 IU/mL [facility] LABORATORY Comment: Heparin (anti-Xa) levels [...] Arreguin MD HEMATOLOGY ORDERABLES Performing Organization Address City/[facility]/ZIP Code Phon e Number [address] POCT Glucose (09/30/2021 7:42 PM EDT) athologist Signature POC Glucose 188 65 - 199 [facility] mg/dL [facility] LABORATORY Comment: Supplemental ranges: <140 mg/dL before meals <180 mg/dL all other times of the day Specimen Anatomical Collection Method Collection Time Receive d Time (Source) Location / / Volume Laterality Blood 09/30/2021 7:42 PM 2 7:42 EDT PM EDT Abdon Arreguin MD POINT OF CARE TEST ORDERABLE S Performing Organization Address City/[facility]/[place] [address] POCT Glucose (09/30/2021 4:22 PM EDT) athologist Signature POC Glucose 164 65 - 199 [facility] mg/dL [facility] LABORATORY Comment: Supplemental ranges: <140 mg/dL before meals <180 mg/dL all other times of the day Specimen Anatomical Collection Method Collection Time Receive d Time (Source) Location / / Volume Laterality Blood 09/30/2021 4:22 PM 2 4:22 EDT PM EDT Abdon Arreguin MD POINT OF CARE TEST ORDERABLE S Performing Organization Address City/[facility]/ZIP Code Phon e Number [place] [id number]OSPITAL LAB[address]ORY Drive Heparin (unfractionated) Level (09/30/2021 1:48 PM EDT) athologist Signature Heparin UFH 0.23 IU/mL [facility] LABORATORY Comment: Heparin (anti-Xa) levels [...] Organization Address City/State/ZIP Code Phon e Number [address] POCT Glucose (09/30/2021 11:39 AM EDT) athologist Signature POC Glucose 158 65 - 199 [facility] mg/dL [facility] LABORATORY Comment: Supplemental ranges: <140 mg/dL before meals <180 mg/dL all other times of the day Specimen Anatomical Collection Method Collection Time Receive d Time (Source) Location / / Volume Laterality Blood 09/30/2021 11:39 09/30/2021 AM EDT 11:39 AM EDT Abdon Arreguin MD POINT OF CARE TEST ORDERABLE S Performing Organization Address City/State/ZIP Code Phon e Number [address] ECHOCARDIOGRAM LMTD W CONTRAST W [...] 10:39 AMBP: 128/89 mmHg ? Patient Location: [facility] C450 A : 1945 ? Height: 170 cm ? Account: [id number] Age: 76 yrs ? Weight: 115 kg Gender: Male ?BSA: 2.2 m2 Ordering Physician: PO^P Referring Physician: Abdon Arreguin Performed By: Azar Argueta ACS, [facility] Exam Location: [facility]. Interpretation Summary Patient is in atrial fibrillation during the study. Technically difficult study. LV function is normal with LVEF of 65% w ith beat to beat variability. There is a possible focal apical wall motion abnorm ality. Right ventricular size and function are normal. There is no hemodynamically significant valvular disease present. No prior transthoracic echo for comparis on. Procedure Limited - 02421. Image enhancement Optis on was used for [...] 09/10 10:39 AMBP: 128/89 mmHg Patient Location: [address] : 1945 Height: 170 cm Account: [id number] Age: 76 yrs Weight: 115 kg Gender: Male BSA: 2.2 m2 Ordering Physician: KALLIE^GABRIELLE Referring Physician: Abdon Arreguin Performed By: Azar Argueta, [facility], [facility] Exam Location: [facility]. Interpretation Summary Patient is in atrial fibrillation during the study. Technically difficult study. LV function is normal with LVEF of 65% w ith beat to beat variability. There is a possible focal apical wall motion abnorm ality. Right ventricular size and function are normal. There is no hemodynamically significant valvular disease present. No prior transthoracic echo for comparis on. Procedure Limited - [id number]. Image enhancement Optis on was used for [...] who have questions please contact the health health care coordinator that requested your imaging first. ? Electronically signed by: Marilin Rocha MD , [facility] ([phone]), at 09/30/2021 11:39 AM Narrative 09/30/2021 11:39 [...] ho have questions please contact the health health care coordinator that requested your imaging first. Abdon Arreguin MD IMG DX ORDERABLES Prothrombin Time (09/30/2021 9:12 AM EDT) athologist Signature PT 12.2 9.4 - 12.5 [facility] LABORATORY INR 1.1 [facility] LABORATORY Comment: An INR <2.0 indicates [...] Organization Address City/State/[place] [address] (ABNORMAL) Differential, Automated (09/30/2021 3:25 AM EDT) Patholo gist Method Time Signature Neutrophils % 80.1 % [facility] LABORATORY Neutr Abs (ANC) 11.70 (H) 1.70 - [facility] 6.10 [facility] x10(3)/[facility] LABORATORY Lymphocytes % 9.9 % [facility] LABORATORY Lymphocytes Abs 1.4 0.9 - 3.2 [facility] x10(3)/[facility] LABORATORY Monocytes % 9.5 % [facility] LABORATORY Monocyte Abs 1.4 (H) 0.3 - 0.9 [facility] x10(3)/[facility] LABORATORY Eosinophils % 0.0 % [facility] LABORATORY Eosinophils Abs 0.0 0.0 - 0.4 [facility] x10(3)/[facility] LABORATORY Basophils % 0.1 % [facility] LABORATORY Basophils Abs 0.0 0.0 - 0.1 [facility] x10(3)/[facility] LABORATORY Immature Gran % 0.40 % [facility] LABORATORY Comment: Immature granulocytes(IG's)percentage an d absolute count will include metamyelocytes, myelocytes, and promyelo cytes. Blood smears from CBCs yielding IG's will be scanned manually for concor dance. If this scan disagrees with the automated IG or if promyelocytes are not ed, a manual differential will be performed. Anna Gran Abs 0.06 (H) 0.00 - 0.04 x10(3)/[facility] LABORATORY Specimen Anatomical Collection Method Collection Time Receive d Time (Source) Location / / Volume Laterality Blood 09/30/2021 3:25 AM 2 3:41 EDT AM EDT Resulting Agency Comment Spec In Lab Che Hayden MD HEMATOLOGY ORDERABLES Performing Organization Address City/State/[place] [address] (ABNORMAL) Hemogram (09/30/2021 3:25 AM EDT) Analysis Performed At Patho logist Time Signature WBC 14.6 (H) 4.0 - 9.5 [facility] x10(3)/[facility] LABORATORY RBC 3.65 (L) 4.58 - [facility] 5.54 [facility] x10(6)/[facility] LABORATORY Hemoglobin 10.6 (L) 13.7 - [facility] 16.[facility] g/dL [facility] LABORATORY Hematocrit 32.5 (L) 40.5 - [facility] 48.5 % [facility] LABORATORY MCV 89.0 82.9 - [facility] 93.1 [facility] LABORATORY MCH 29.0 27.5 - [facility] 32.1 pg [facility] LABORATORY MCHC 32.6 32.0 - [facility] 35.7 g/dL [facility] LABORATORY Platelets 143 (L) 145 - 357 [facility] x10(3)/[facility] LABORATORY RDWSD 45.8 (H) 36.0 - [facility] 45.0 [facility] LABORATORY RDWCV 14.1 (H) 11.4 - [facility] 13.8 % [facility] LABORATORY MPV 10.6 7.6 - 12.9 [facility] LABORATORY nRBC % Auto 0.0 % [facility] LABORATORY nRBC Abs Auto 0.000 0.000 - [facility] 0.000 [facility] x10(3)/[facility] LABORATORY Specimen Anatomical Collection Method Collection Time Receive d Time (Source) Location / / Volume Laterality Blood 09/30/2021 3:25 AM 3:41 EDT AM EDT Resulting Agency Comment Spec In Lab Che Hayden MD HEMATOLOGY ORDERABLES Performing Organization Address City/State/[place] [address] (ABNORMAL) Basic Metabolic Panel (non-fasting) (09/30/2021 3:25 AM EDT) P athologist Signature Glucose Lvl 142 65 - 199 [facility] mg/dL [facility]OR[facility]ORY Comment: Diabetes: >=200 mg/dL plus symp toms BUN 14 10 - 20 mg/dL [facility] LABORATORY Creatinine 0.71 (L) 0.80 - 1.50 mg/dL [facility] LABORATORY Sodium 138 135 - 145 [...] estions. Chloride 104 98 - 107 mmol/L [facility] LABORATORY CO2 24 22 - 31 mmol/L [facility] LABOR[facility] Anion Gap 10 5 - 15 mmol/L [facility] LABORATORY Calcium 8.3 (L) 8.5 - 10.5 mg/dL [facility] LABORATORY Comment: result rechecked-sf Estimated GFR 96 >=60 mL/min/1.73 m?? [facility] LABOR[facility]ORY Comment: This patient's estimated GFR [...] Organization Address City/State/[place] [address] (ABNORMAL) Differential, Automated (09/29/2021 8:59 PM EDT) [facility] Method Time Signature Neutrophils % 89.4 % [facility] LABORATORY Neutr Abs (ANC) 14.75 (H) 1.70 - [facility] 6.10 [facility] x10(3)/[facility] L LABORATORY Lymphocytes % 4.2 % [facility] LABORATORY Lymphocytes Abs 0.7 (L) 0.9 - 3.2 [facility] x10(3)/[facility] LABORATORY Monocytes % 5.6 % [facility] LABORATORY Monocyte Abs 0.9 0.3 - 0.9 [facility] x10(3)/[facility] LABORATORY Eosinophils % 0.1 % [facility] LABORATORY Eosinophils Abs 0.0 0.0 - 0.4 [facility] x10(3)/[facility] LABORATORY Basophils % 0.2 % [facility] LABORATORY Basophils Abs 0.0 0.0 - 0.1 [facility] x10(3)/[facility] LABORATORY Immature Gran % 0.50 % [facility] LABORATORY Comment: Immature granulocytes(IG's)percentage an d absolute count will include metamyelocytes, myelocytes, and promyelo cytes. Blood smears from CBCs yielding IG's will be scanned manually for concor dance. If this scan disagrees with the automated IG or if promyelocytes are not ed, a manual differential will be performed. Anna Gran Abs 0.08 (H) 0.00 - 0.04 x10(3)/[facility] LABORATORY Specimen Anatomical Collection Method Collection Time Receive d Time (Source) Location / / Volume Laterality Blood 09/29/2021 8:59 PM 9:10 EDT PM EDT Resulting Agency Comment Spec In Lab Sam CONTRERAS HEMATOLOGY ORDERABLES Performing Organization Address City/State/[place] [address] (ABNORMAL) Hemogram (09/29/2021 8:59 PM EDT) Analysis Performed At Patho logist Time Signature WBC 16.5 (H) 4.0 - 9.5 [facility] x10(3)/[facility] LABORATORY RBC 3.88 (L) 4.58 - [facility] 5.54 [facility] x10(6)/[facility] LABORATORY Hemoglobin 11.1 (L) 13.7 - [facility] 16.5 g/dL [facility] LABORATORY Hematocrit 33.9 (L) 40.5 - EVELINE VENTURA 48.5 % [facility] LABORATORY MCV 87.4 82.9 - [place] [place]A 93.1 [facility] LABORATORY MCH 28.6 27.5 - EVELINE ESTEVEZCK 32.1 pg [facility] LABORATORY MCHC 32.7 32.0 - [facility] VENTURA 35.7 g/dL [facility] LABORATORY Platelets 145 145 - 357 [place] [place] x10(3)/[facility] LABORATORY RDWSD 45.8 (H) 36.0 - EVELINE AUDREY 45.0 [facility] LABORATORY RDWCV 14.3 (H) 11.4 - [facility] 13.8 % [facility] LABORATORY MPV 11.0 7.6 - 12.9 [facility] LABORATORY nRBC % Auto 0.0 % [facility] nRBC Abs Auto 0.000 0.000 - [facility] 0.000 [facility] x10(3)/[facility] LABORATORY Specimen Anatomical Collection Method Collection Time Receive d Time (Source) Location / / Volume Laterality Blood 09/29/2021 8:59 PM 9:10 EDT PM EDT Resulting Agency Comment Spec In Lab Sam CONTRERAS HEMATOLOGY ORDERABLES Performing Organization Address City/State/[place] [address] (ABNORMAL) BLOOD GAS 2 ARTERIAL (09/29/2021 1:32 PM EDT) Analysis Performed At Patho logist Time Signature pH Art 7.36 7.35 - [facility] 7.45 [facility] LABORATORY pCO2 Art 39 35 - 45 [facility] mmHg [facility] LABORATORY pO2 Art 209 (H) 85 - 104 [facility] mmHg [facility] LABORATORY HCO3 Art 21.2 20.0 - [facility] [place] 26.0 [facility] mmol/L [facility] LABORATORY BE Art -4.0 (L) -3.0 - 3.0 [facility] mmol/L [facility] LABORATORY Hgb Blood Gas 11.5 (L) 13.7 - [facility] 16.5 g/dL [facility] LABORATORY O2HB Art 98.5 (H) 94.0 - [facility] 97.0 % [facility] LABORATORY COHB Art 0.4 % [facility] LABORATORY Comment: Nonsmokers: 0.5-1.5% COHB Smokers: Variable, but usually less than 10% Toxic: 20-30% COHB Lethal: Greater than 60% COHB METHB Art 0.3 <=1.5 % [facility] LABORATORY Na Whole Blood 134 (L) 135 - 145 mmol/L [facility] LABORATORY K Whole Blood 3.8 3.5 - 5.0 mmol/L [facility] LABORATORY Comment: Please note: Patients with WBC >100,000 may have falsely elevated Potassium levels. Contact the Clinical Chemistry L aboratory if there are any questions. ICa Whole Blood 1.12 (L) 1.15 - 1.33 mmol/L [facility] LABORATORY Comment: Note: ??Total bilirubin higher than 20 m g/dL may lead to falsely low ionized calcium. CL Whole Blood 104 98 - 107 mmol/L [facility] LABORATORY Gluc Whole Bld 134 65 - 199 mg/dL [facility] LABORATORY Comment: Diabetes: >=200 mg/dL plus symp toms. Lactate WB 1.4 0.5 - 2.2 mmol/L [facility] LABORATORY FIO2 Art 60 % [facility] LABORATORY Flow Art 1.0 LPM [facility] LABORATORY PF Ratio Art 348 [facility] LABORATORY Temp Art 38.2 Celsius [facility] LABORATORY Specimen Anatomical Collection Method Collection Time Receive d Time (Source) Location / / Volume Laterality Blood 09/29/2021 1:32 PM 2 1:32 EDT PM EDT Abdon Arreguin MD CHEMISTRY ORDERABLES Performing Organization Address City/State/[place] [address] Arterial Duplex Leg, Unil (09/29/2021 12:08 PM EDT) Component Value Ref Test Analysis Performed At [facility] gist Range Method Time Signature VB Text Department: Vascular Surgery Lab VASCUBASE Report Patient: [id number] (GRAMMO, RICHY) CPT: 97309 Referring Physician: JOSELITO WASHBURN ?? Phone: Indications: [...] athologist Signature Potassium 3.9 3.5 - 5.0 [facility] mmol/L [facility] LABORATORY Comment: Please note: ??Patients with [...] Organization Address City/State/[place] [address] POCT Glucose (09/28/2021 4:29 PM EDT) athologist Signature POC Glucose 134 65 - 199 [facility] [place] mg/dL [facility] LABORATORY Comment: Supplemental ranges: <140 mg/dL before meals <180 mg/dL all other times of the day Specimen Anatomical Collection Method Collection Time Receive d Time (Source) Location / / Volume Laterality Blood 09/28/2021 4:29 PM 4:29 EDT PM EDT Abdon Arreguin MD POINT OF CARE TEST ORDERABLE S Performing Organization Address City/State/[place] [address] POCT Glucose (09/28/2021 12:19 PM EDT) athologist Signature POC Glucose 149 65 - 199 [facility] [place] mg/dL [facility] LABORATORY Comment: Supplemental ranges: <140 mg/dL before meals <180 mg/dL all other times of the day Specimen Anatomical Collection Method Collection Time Receive d Time (Source) Location / / Volume Laterality Blood 09/28/2021 12:19 09/28/2021 PM EDT 12:19 PM EDT Abdon Arreguin MD POINT OF CARE TEST ORDERABLE S Performing Organization Address City/State/[place] [address] POCT Glucose (09/28/2021 10:57 AM EDT) athologist Signature POC Glucose 138 65 - 199 [facility] AUDREY mg/dL [facility] LABORATORY Comment: Supplemental ranges: <140 mg/dL before meals <180 mg/dL all other times of the day Specimen Anatomical Collection Method Collection Time Receive d Time (Source) Location / / Volume Laterality Blood 09/28/2021 10:57 09/28/2021 AM EDT 10:57 AM EDT Abdon Arreguin MD POINT OF CARE TEST ORDERABLE S Performing Organization Address City/State/[place] [address] POCT Glucose (09/28/2021 9:49 AM EDT) athologist Signature POC Glucose 131 65 - 199 [place] mg/dL [facility] LABORATORY Comment: Supplemental ranges: <140 mg/dL before meals <180 mg/dL all other times of the day Specimen Anatomical Collection Method Collection Time Receive d Time (Source) Location / / Volume Laterality Blood 09/28/2021 9:49 AM 2 9:49 EDT AM EDT Abdon Arreguin MD POINT OF CARE TEST ORDERABLE S Performing Organization Address City/State/ZIP Code Phon e Number [address] POCT Glucose (09/28/2021 8:16 AM EDT) athologist Signature POC Glucose 144 65 - 199 [facility] mg/dL [facility] LABORATORY Comment: Supplemental ranges: <140 mg/dL before meals <180 mg/dL all other times of the day Specimen Anatomical Collection Method Collection Time Receive d Time (Source) Location / / Volume Laterality Blood 09/28/2021 8:16 AM 2 8:16 EDT AM EDT Abdon Arreguin MD POINT OF CARE TEST ORDERABLE S Performing Organization Address City/State/ZIP Code Phon e Number [address] POCT Glucose (09/28/2021 7:00 AM EDT) athologist Signature POC Glucose 144 65 - 199 [place] mg/dL [facility] LABORATORY Comment: Supplemental ranges: <140 mg/dL before meals <180 mg/dL all other times of the day Specimen Anatomical Collection Method Collection Time Receive d Time (Source) Location / / Volume Laterality Blood 09/28/2021 7:00 AM 2 7:00 EDT AM EDT Abdon Arreguin MD POINT OF CARE TEST ORDERABLE S Performing Organization Address City/State/[place] [address] POCT Glucose (09/28/2021 6:41 AM EDT) athologist Signature POC Glucose 128 65 - 199 [place] AUDRE[place] mg/dL [facility] LABORATORY Comment: Supplemental ranges: <140 mg/dL before meals <180 mg/dL all other times of the day Specimen Anatomical Collection Method Collection Time Receive d Time (Source) Location / / Volume Laterality Blood 09/28/2021 6:41 AM 2 6:41 EDT AM EDT Abdon Arreguin MD POINT OF CARE TEST ORDERABLE S Performing Organization Address City/State/ZIP Code Phon e Number [address] POCT Glucose (09/28/2021 5:56 AM EDT) athologist Signature POC Glucose 154 65 - 199 [facility] [place] mg/dL [facility] LABORATORY Comment: Supplemental ranges: <140 mg/dL before meals <180 mg/dL all other times of the day Specimen Anatomical Collection Method Collection Time Receive d Time (Source) Location / / Volume Laterality Blood 09/28/2021 5:56 AM 2 5:56 EDT AM EDT Abdon Arreguin MD POINT OF CARE TEST ORDERABLE S Performing Organization Address City/State/ZIP Code Phon e Number [address] POCT Glucose (09/28/2021 4:58 AM EDT) athologist Signature POC Glucose 150 65 - 199 [place]EL[facility] AUDREY mg/dL [facility] LABORATORY Comment: Supplemental ranges: <140 mg/dL before meals <180 mg/dL all other times of the day Specimen Anatomical Collection Method Collection Time Receive d Time (Source) Location / / Volume Laterality Blood 09/28/2021 4:58 AM 2 4:58 EDT AM EDT Abdon Arreguin MD POINT OF CARE TEST ORDERABLE S Performing Organization Address City/State/ZIP Code Phon e Number [address] POCT Glucose (09/28/2021 3:58 AM EDT) athologist Signature POC Glucose 153 65 - 199 EVELINE AUDREY mg/dL [facility] LABORATORY Comment: Supplemental ranges: <140 mg/dL before meals <180 mg/dL all other times of the day Specimen Anatomical Collection Method Collection Time Receive d Time (Source) Location / / Volume Laterality Blood 09/28/2021 3:58 AM 3:58 EDT AM EDT Abdon Arreguin MD POINT OF CARE TEST ORDERABLE S Performing Organization Address City/State/[place] [address] (ABNORMAL) Differential, Automated (09/28/2021 2:15 AM EDT) [facility] Method Time Signature Neutrophils % 87.6 % [facility] LABORATORY Neutr Abs (ANC) 11.58 (H) 1.70 - [facility] 6.10 [facility] x10(3)/[facility] LABORATORY Lymphocytes % 5.2 % [facility] LABORATORY Lymphocytes Abs 0.7 (L) 0.9 - 3.2 [facility] x10(3)/[facility] LABORATORY Monocytes % 6.7 % [facility] LABORATORY Monocyte Abs 0.9 0.3 - 0.9 [facility] x10(3)/[facility] LABORATORY Eosinophils % 0.0 % [facility] LABORATORY Eosinophils Abs 0.0 0.0 - 0.4 [facility] x10(3)/[facility] LABORATORY Basophils % 0.2 % [facility] LABORATORY Basophils Abs 0.0 0.0 - 0.1 [facility] x10(3)/[facility] LABORATORY Immature Gran % 0.30 % [facility] LABORATORY Comment: Immature granulocytes(IG's)percentage an d absolute count will include metamyelocytes, myelocytes, and promyelo cytes. Blood smears from CBCs yielding IG's will be scanned manually for concor dance. If this scan disagrees with the automated IG or if promyelocytes are not ed, a manual differential will be performed. Anna Gran Abs 0.04 0.00 - 0.04 x10(3)/[facility] MAR Y [facility] LABORATORY Specimen Anatomical Collection Method Collection Time Receive d Time (Source) Location / / Volume Laterality Blood 09/28/2021 2:15 AM 2 2:27 EDT AM EDT Resulting Agency Comment Spec In Lab Davie CONTRERAS HEMATOLOGY ORDERABLES Performing Organization Address City/State/[place] [address] (ABNORMAL) Hemogram (09/28/2021 2:15 AM EDT) Analysis Performed At Patho logist Time Signature WBC 13.2 (H) 4.0 - 9.5 [facility](3[facility] LABORATORY RBC 3.73 (L) 4.58 - [facility] 5.54 [facility] x10(6)/[facility] LABORATORY Hemoglobin 10.9 (L) 13.7 - [facility] 16.5 g/dL [facility] LABORATORY Hematocrit 33.1 (L) 40.5 - [facility] 48.5 % [facility] LABORATORY MCV 88.7 82.9 - [facility] 93.1 [facility] LABORATORY MCH 29.2 27.5 - EVELINE AUDREY 32.1 pg [facility] LABORATORY MCHC 32.9 32.0 - [facility] 35.7 g/dL [facility] LABORATORY Platelets 145 145 - 357 [facility] x10(3)/[facility] LABORATORY RDWSD 46.3 (H) 36.0 - [facility] 45.0 [facility] LABORATORY RDWCV 14.3 (H) 11.4 - [facility] 13.8 % [facility] LABORATORY MPV 10.3 7.6 - 12.9 [facility] nRBC % Auto 0.0 % [facility] LABORATORY nRBC Abs Auto 0.000 0.000 - [facility] 0.000 [facility] x10(3)/[facility] LABORATORY Specimen Anatomical Collection Method Collection Time Receive d Time (Source) Location / / Volume Laterality Blood 09/28/2021 2:15 AM 2 2:27 EDT AM EDT Resulting Agency Comment Spec In Lab Davie CONTRERAS HEMATOLOGY ORDERABLES Performing Organization Address City/State/ZIP Code [place] [address] (ABNORMAL) Basic Metabolic Panel (non-fasting) (09/28/2021 2:15 AM EDT) athologist Signature Glucose Lvl 193 65 - 199 [facility] mg/dL [facility] LABORATORY Comment: Diabetes: >=200 mg/dL plus symp toms BUN 13 10 - 20 mg/dL [facility] LABORATORY Creatinine 0.73 (L) 0.80 - 1.50 mg/dL [facility] LABORATORY Sodium 139 135 - 145 mmol/L [facility] LABORATORY Potassium 4.3 3.5 - 5.0 mmol/L [facility] LABORATORY Comment: Please note: ??Patients with WBC >100,00 0 may have falsely elevated Potassium levels. ??For accurate Potassium quantif ication in these patients send serum separator tube (gold top) for subsequent determinations. ??Contact the Clinical Chemistry Laboratory if there are any qu estions. Chloride 108 (H) 98 - 107 mmol/L [facility] LABORATORY CO2 21 (L) 22 - 31 mmol/L [facility] LABORATORY Anion Gap 10 5 - 15 mmol/L [facility] LABORATORY Calcium 7.5 (L) 8.5 - 10.5 mg/dL [facility] LABORATORY Estimated GFR 95 >=60 mL/min/1.73 m?? [facility] LABORATORY Comment: This patient's estimated GFR [...] Organization Address City/State/[place] [address] (ABNORMAL) Troponin (09/28/2021 2:15 AM EDT) athologist Signature Troponin-T 0.31 (H) 0.00 - EVELINE VENTURA 0.00 ng/mL [facility] LABORATORY Comment: The 99th percentile for Troponin T is le ss than 0.01 ng/mL, any detectable cTnT concentration using this assay should be considered elevated. According to the third universal definit ion of myocardial infarction the following criteria with a clinical prese ntation consistent with acute myocardial ischemia meets the diagnosis for a myocardial infarction (NH). Detection of a rise and/or fall of [...] additional sample may be indicated. Reference: Third [place] Definition of Myocardial Infarction. Journal of the [employer] 2012;60:1581-98 Specimen Anatomical Collection Method Collection Time Receive d Time (Source) Location / / Volume Laterality Blood 09/28/2021 2:15 AM 2 2:27 EDT AM EDT Resulting Agency Comment Spec In Lab Abdon Arreguin MD CHEMISTRY ORDERABLES Performing Organization Address City/[facility]/[place] [address] POCT Glucose (09/28/2021 2:12 AM EDT) athologist Signature POC Glucose 183 65 - 199 EVEL[facility] AUDREY mg/dL [facility] LABORATORY Comment: Supplemental ranges: <140 mg/dL before meals <180 mg/dL all other times of the day Specimen Anatomical Collection Method Collection Time Receive d Time (Source) Location / / Volume Laterality Blood 09/28/2021 2:12 AM 2:12 EDT AM EDT Abdon Arreguin MD POINT OF CARE TEST ORDERABLE S Performing Organization Address City/State/[place] [address] POCT Glucose (09/28/2021 12:13 AM EDT) athologist Signature POC Glucose 182 65 - 199 [facility] [place] mg/dL [facility] LABORATORY Comment: Supplemental ranges: <140 mg/dL before meals <180 mg/dL all other times of the day Specimen Anatomical Collection Method Collection Time Receive d Time (Source) Location / / Volume Laterality Blood 09/28/2021 12:13 09/28/2021 AM EDT 12:13 AM EDT Abdon Arreguin MD POINT OF CARE TEST ORDERABLE S Performing Organization Address City/State/[place] [address] POCT Glucose (09/27/2021 10:07 PM EDT) athologist Signature POC Glucose 184 65 - 199 EVELINE AUDREY mg/dL [facility] LABORATORY Comment: Supplemental ranges: <140 mg/dL before meals <180 mg/dL all other times of the day Specimen Anatomical Collection Method Collection Time Receive d Time (Source) Location / / Volume Laterality Blood 09/27/2021 10:07 09/27/2021 PM EDT 10:07 PM EDT Abdon Arreguin MD POINT OF CARE TEST ORDERABLE S Performing Organization Address City/State/[place] [address] (ABNORMAL) Hemoglobin (09/27/2021 9:30 PM EDT) athologist Signature Hemoglobin 11.2 (L) 13.7 - [facility] 16.5 g/dL [facility] LABORATORY Specimen Anatomical Collection Method Collection Time Receive d Time (Source) Location / / Volume Laterality Blood 09/27/2021 9:30 PM 2 9:34 EDT PM EDT Resulting Agency Comment Spec In Lab Abodn Arreguin MD HEMATOLOGY ORDERABLES Performing Organization Address City/[facility]/[place] [address] Potassium (09/27/2021 9:30 PM EDT) P athologist Signature Potassium 4.2 3.5 - 5.0 [facility] mmol/L [facility] LABORATORY Comment: Please note: ??Patients with [...] Arreguin MD CHEMISTRY ORDERABLES Performing Organization Address City/[facility]/[place] [address] (ABNORMAL) BLOOD GAS 2 ARTERIAL (09/27/2021 7:45 PM EDT) Analysis Performed At Patho logist Time Signature pH Art 7.31 (L) 7.35 - [facility] 7.45 [facility] LABORATORY pCO2 Art 37 35 - 45 [facility] mmHg [facility] LABORATORY pO2 Art 117 (H) 85 - 104 [facility] mmHg [facility] LABORATORY HCO3 Art 18.3 (L) 20.0 - EVELINE AUDREY 26.0 [facility] mmol/L [facility] LABORATORY BE Art -7.9 (L) -3.0 - 3.0 [facility] mmol/L [facility] LABORATORY Hgb Blood Gas 12.7 (L) 13.7 - EVELINE AUDREY 16.5 g/dL [facility] LABORATORY O2HB Art 96.8 94.0 - [facility] 97.0 % [facility] LABORATORY COHB Art 0.4 % [facility] LABORATORY Comment: Nonsmokers: 0.5-1.5% COHB Smokers: Variable, but usually less than 10% Toxic: 20-30% COHB Lethal: Greater than 60% COHB METHB Art 0.7 <=1.5 % [facility] LABORATORY Na Whole Blood 140 135 - 145 mmol/L [facility] LABORATORY K Whole Blood 3.9 3.5 - 5.0 mmol/L [facility] LABORATORY Comment: Please note: Patients with WBC >100,000 may have falsely elevated Potassium levels. Contact the Clinical Chemistry L aboratory if there are any questions. ICa Whole Blood 1.10 (L) 1.15 - 1.33 mmol/L [facility] LABORATORY Comment: Note: ??Total bilirubin higher than 20 m g/dL may lead to falsely low ionized calcium. CL Whole Blood 108 (H) 98 - 107 mmol/L [facility] LABORATORY Gluc Whole Bld 173 65 - 199 mg/dL [facility] LABORATORY Comment: Diabetes: >=200 mg/dL plus symp toms. Lactate WB 1.7 0.5 - 2.2 mmol/L [facility] LABORATORY FIO2 Art 40 % [facility] LABORATORY PF Ratio Art 292 [facility] LABORATORY Specimen Anatomical Collection Method Collection Time Receive d Time (Source) Location / / Volume Laterality Blood 09/27/2021 7:45 PM 7:45 EDT PM EDT Abdon Arreguin MD CHEMISTRY ORDERABLES Performing Organization Address City/State/[place] [address] POCT Glucose (09/27/2021 7:19 PM EDT) athologist Signature POC Glucose 149 65 - 199 [facility] mg/dL [facility] LABOR[facility]ORY Comment: Supplemental ranges: <140 mg/dL before meals <180 mg/dL all other times of the day Specimen Anatomical Collection Method Collection Time Receive d Time (Source) Location / / Volume Laterality Blood 09/27/2021 7:19 PM 7:19 EDT PM EDT Abdon Arreguin MD POINT OF CARE TEST ORDERABLE S Performing Organization Address City/State/ZIP Code Phon e Number [place] [id number] XR Chest One View [...] who have questions please contact the health health care coordinator that requested your imaging first. [...] ho have questions please contact the health health care coordinator that requested your imaging first. Abdon Arreguin MD IMG DX ORDERABLES (ABNORMAL) BLOOD GAS 2 ARTERIAL (09/27/2021 5:58 PM EDT) athologist Signature pH Art 7.29 7.35 - [facility] (Critical) 7.45 [facility] LABORATORY Comment: Noted by instrumentation technologist. pCO2 Art 44 35 - 45 mmHg [facility] LABORATORY pO2 Art 462 (H) 85 - 104 mmHg [facility] LABORATORY HCO3 Art 20.7 20.0 - 26.0 mmol/L [facility] BE Art -5.9 (L) -3.0 - 3.0 mmol/L [facility] Hgb Blood Gas 12.9 (L) 13.7 - 16.5 g/dL [facility] O2HB Art 98.5 (H) 94.0 - 97.0 % [facility] COHB Art 0.4 % [facility] Comment: Nonsmokers: 0.5-1.5% COHB Smokers: Variable, but usually less than 10% Toxic: 20-30% COHB Lethal: Greater than 60% COHB METHB Art 0.7 <=1.5 % [facility] Na Whole Blood 138 135 - 145 mmol/L [facility] K Whole Blood 3.9 3.5 - 5.0 mmol/L [facility] Comment: Please note: Patients with WBC >100,000 may have falsely elevated Potassium levels. Contact the Clinical Chemistry L aboratory if there are any questions. ICa Whole Blood 1.15 1.15 - 1.33 mmol/L [facility] Comment: Note: ??Total bilirubin higher than 20 m g/dL may lead to falsely low ionized calcium. CL Whole Blood 105 98 - 107 mmol/L [facility] Gluc Whole Bld 166 65 - 199 mg/dL [facility] Comment: Diabetes: >=200 mg/dL plus symp toms. Lactate WB 1.6 0.5 - 2.2 mmol/L [facility] FIO2 Art 100 % [facility] PF Ratio Art 462 [facility] Specimen Anatomical Collection Method Collection Time Receive d Time (Source) Location / / Volume Laterality Blood 09/27/2021 5:58 PM 5:58 EDT PM EDT Abdon Arreguin MD CHEMISTRY ORDERABLES Performing Organization Address City/State/[place] [address] EKG 12 Lead (09/27/2021 5:47 PM EDT) Component Value Ref Range Test Analysis Performed Pathologis t Method Time At Signature Ventricular rate 80 BPM MUSE SYSTEM Atrial Rate 80 BPM MUSE SYSTEM P-R Interval 298 ms MUSE SYSTEM QRS Duration 148 ms MUSE SYSTEM Q-T Interval 482 ms MUSE SYSTEM QTC Calculated 555 ms MUSE SYSTEM (Bezet) Calculated P [place] 102 degrees MUSE SYSTEM Calculated R [place] 102 degrees MUSE SYSTEM Calculated T [place] -46 degrees MUSE SYSTEM INTERPRETATION Suspect arm [...] Arreguin MD ECG ORDERABLES Performing Organization Address City/[facility]/ZIP Code Phon e Number MUSE SYSTEM (ABNORMAL) Thrombin time (09/27/2021 4:37 PM EDT) athologist Signature Thrombin Time 19 (H) 10 - 17 [facility] Comment: OR Result called by ?? [...] Castanon MD HEMATOLOGY ORDERABLES Performing Organization Address City/[facility]/[place] [address] Fibrinogen (09/27/2021 4:37 PM EDT) athologist Signature Fibrinogen 247 200 - 393 [facility] mg/dL [facility] Comment: OR Result called by [...] Castanon MD HEMATOLOGY ORDERABLES Performing Organization Address [facility]/[place] [address] APTT (09/27/2021 4:37 PM EDT) P athologist Signature PTT 33 25 - 37 sec [facility] Comment: OR Result called by [...] Castanon MD HEMATOLOGY ORDERABLES Performing Organization Address City/[facility]/[place] [address] (ABNORMAL) Prothrombin Time (09/27/2021 4:37 PM EDT) P athologist Signature PT 17.8 (H) 9.4 - 12.5 [facility] Comment: OR Result called by ?? PARSAD OR Result s read back by: ? Lyndsay Rcihard at 2021-09-27 16:57:25 INR 1.6 [facility] Comment: OR Result called by [...] Organization Address City/State/[place] [address] (ABNORMAL) Hemogram (09/27/2021 4:37 PM EDT) athologist Signature WBC 17.4 (H) 4.0 - 9.5 [facility] x10(3)/[facility] LABORATORY RBC 3.34 (L) 4.58 - [facility] 5.54 [facility] x10(6)/[facility] LABORATORY Hemoglobin 9.6 (L) 13.7 - [facility] 16.5 g/dL [facility] Hematocrit 29.5 (L) 40.5 - [facility] 48.5 % [facility] Comment: This result has been called to NAYLA BARR by Heladio Ordonez on 09 27 2021 at 1648, and has been read back. MCV 88.3 82.9 - 93.1 [facility] MCH 28.7 27.5 - 32.1 pg [facility] MCHC 32.5 32.0 - 35.7 g/dL [facility] Platelets 152 145 - 357 x10(3)/[facility] LABORATORY RDWSD 44.7 36.0 - 45.0 [facility]ORY RDWCV 13.9 (H) 11.4 - 13.8 % [facility] MPV 10.3 7.6 - 12.9 [facility] LABORATORY nRBC % Auto 0.0 % [facility] nRBC Abs Auto 0.000 0.000 - 0.000 x10(3)/[facility] LABORATORY Specimen Anatomical Collection Method Collection Time Receive d Time (Source) Location / / Volume Laterality Blood 09/27/2021 4:37 PM 2 4:43 EDT PM EDT Resulting Agency Comment Spec In Lab Henny Castanon MD HEMATOLOGY ORDERABLES Performing Organization Address City/State/[place] [address] (ABNORMAL) BLOOD GAS 2 ARTERIAL (09/27/2021 4:33 PM EDT) Analysis Performed At Patho logist Time Signature pH Art 7.36 7.35 - [facility] 7.45 [facility] pCO2 Art 41 35 - 45 [facility] mmHg [facility] pO2 Art 165 (H) 85 - 104 [facility] HCO3 Art 22.6 20.0 - [facility] 26.0 [facility] mmol/L [facility] BE Art -2.9 -3.0 - 3.0 [facility] mmol/L [facility] Hgb Blood Gas 10.3 (L) 13.7 - [facility] 16.5 g/dL [facility] O2HB Art 98.0 (H) 94.0 - [facility] 97.0 % [facility] COHB Art 0.3 % [facility] Comment: Nonsmokers: 0.5-1.5% COHB Smokers: Variable, but usually less than 10% Toxic: 20-30% COHB Lethal: Greater than 60% COHB METHB Art 0.3 <=1.5 % [facility] Na Whole Blood 134 (L) 135 - 145 mmol/L [facility] K Whole Blood 3.8 3.5 - 5.0 mmol/L [facility] Comment: Please note: Patients with WBC >100,000 may have falsely elevated Potassium levels. Contact the Clinical Chemistry L aboratory if there are any questions. ICa Whole Blood 1.12 (L) 1.15 - 1.33 mmol/L [facility] Comment: Note: ??Total bilirubin higher than 20 m g/dL may lead to falsely low ionized calcium. CL Whole Blood 108 (H) 98 - 107 mmol/L [facility] Gluc Whole Bld 155 65 - 199 mg/dL [facility] Comment: Diabetes: >=200 mg/dL plus symp toms. Lactate WB 1.4 0.5 - 2.2 mmol/L [facility] Specimen Anatomical Collection Method Collection Time Receive d Time (Source) Location / / Volume Laterality Blood 09/27/2021 4:33 PM 2 4:33 EDT PM EDT Abdon Arreguin MD CHEMISTRY ORDERABLES Performing Organization Address City/[facility]/ZIP Code Phon e Number [address] Prepare cryoprecipitate (09/27/2021 4:20 PM EDT) P athologist Signature Dispensed? Yes [facility] Specimen Anatomical Collection Method Collection Time Receive d Time (Source) Location / / Volume Laterality Blood 09/27/2021 4:20 PM 2 4:19 EDT PM EDT Abdon Arreguin MD BLOOD BANK ORDERABLES Performing Organization Address City/[facility] [place] [address] (ABNORMAL) BLOOD GAS 2 ARTERIAL (09/27/2021 3:48 PM EDT) Analysis Performed At Patho logist Time Signature pH Art 7.39 7.35 - [facility] 7.45 [facility] pCO2 Art 38 35 - 45 [facility] mmHg [facility] pO2 Art 482 (H) 85 - 104 [facility] mmHg [facility] HCO3 Art 22.6 20.0 - [facility] 26.0 [facility] mmol/L [facility] BE Art -2.3 -3.0 - 3.0 [facility] mmol/L [facility] Hgb Blood Gas 10.0 (L) 13.7 - [facility] 16.5 g/dL [facility] O2HB Art 98.9 (H) 94.0 - [facility] 97.0 % [facility] COHB Art 0.3 % [facility] Comment: Nonsmokers: 0.5-1.5% COHB Smokers: Variable, but usually less than 10% Toxic: 20-30% COHB Lethal: Greater than 60% COHB METHB Art 0.3 <=1.5 % [facility] Na Whole Blood 133 (L) 135 - 145 mmol/L [facility] K Whole Blood 4.2 3.5 - 5.0 mmol/L [facility] Comment: Please note: Patients with WBC >100,000 may have falsely elevated Potassium levels. Contact the Clinical Chemistry L aboratory if there are any questions. ICa Whole Blood 0.99 (L) 1.15 - 1.33 mmol/L [facility] Comment: Note: ??Total bilirubin higher than 20 m g/dL may lead to falsely low ionized calcium. CL Whole Blood 105 98 - 107 mmol/L [facility] Gluc Whole Bld 144 65 - 199 mg/dL [facility] Comment: Diabetes: >=200 mg/dL plus symp toms. Lactate WB 1.4 0.5 - 2.2 mmol/L [facility] Specimen Anatomical Collection Method Collection Time Receive d Time (Source) Location / / Volume Laterality Blood 09/27/2021 3:48 PM 2 3:48 EDT PM EDT Abdon Arreguin MD CHEMISTRY ORDERABLES Performing Organization Address City/State/[place] [address] Platelet count (09/27/2021 3:40 PM EDT) P athologist Signature Platelets 164 145 - 357 [facility] x10(3)/[facility] LABORATORY Plat Immature 3.8 0.0 - 7.4 [facility] % % [facility] Comment: Limitation of the Immature Platelet Frac tion (IPF)-May be less reliable when the platelet count is less than 62s548/u L due to statistical imprecision. The IPF [...] in a decreased state of production. References: [employer] The Clinical Value of the Immature Platelet Fraction (IPF) in Cell Recovery Document Number [id number] 07/2010 [employer] The Role of the Imm ature Platelet Fraction (IPF) in the Differential Diagnosis of Thrombocytopen ia, Document [id number] V05/01/22 P006/22 Specimen Anatomical Collection Method Collection Time Receive d Time (Source) Location / / Volume Laterality Blood 09/27/2021 3:40 PM 2 3:55 EDT PM EDT Resulting Agency Comment Spec In Lab Abdon Arreguin MD HEMATOLOGY ORDERABLES Performing Organization Address City/[facility]/ZIP Code Phon e Number [address] (ABNORMAL) Hemoglobin (09/27/2021 3:40 PM EDT) athologist Signature Hemoglobin 9.3 (L) 13.7 - 16.5 EVELINE AUDREY g/dL [facility] Comment: This result has been called to LYNDSAY HARRIS by Ambrosio Pena on 09 27 2021 at 1602, and has been read back. Specimen Anatomical Collection Method Collection Time Receive d Time (Source) Location / / Volume Laterality Blood 09/27/2021 3:40 PM 2 3:55 EDT PM EDT Resulting Agency Comment Spec In Lab Abdon Arreguin MD HEMATOLOGY ORDERABLES Performing Organization Address City/[facility]/[place] [address] Fibrinogen (09/27/2021 3:40 PM EDT) athologist Signature Fibrinogen 235 200 - 393 [facility] mg/dL [facility] Comment: OR Result called by [...] Arreguin MD HEMATOLOGY ORDERABLES Performing Organization Address City/[facility]/[place] [address] (ABNORMAL) Hematocrit (09/27/2021 3:40 PM EDT) P athologist Signature Hematocrit 27.7 (L) 40.5 - [facility] 48.5 % [facility] Comment: This result has been called to LYNDSAY HARRIS by Ambrosio Pena on 09 27 2021 at 1602, and has been read back. Specimen Anatomical Collection Method Collection Time Receive d Time (Source) Location / / Volume Laterality Blood 09/27/2021 3:40 PM 2 3:55 EDT PM EDT Resulting Agency Comment Spec In Lab Abdon Arreguin MD HEMATOLOGY ORDERABLES Performing Organization Address City/[facility]/[place] [address] (ABNORMAL) BLOOD GAS 2 ARTERIAL (09/27/2021 3:16 PM EDT) Analysis Performed At Patho logist Time Signature pH Art 7.41 7.35 - [facility] 7.45 [facility] pCO2 Art 36 35 - 45 [facility] mmHg [facility] pO2 Art 525 (H) 85 - 104 [facility] mmHg [facility] HCO3 Art 22.5 20.0 - [facility] 26.0 [facility] mmol/L [facility] BE Art -2.1 -3.0 - 3.0 [facility] mmol/L [facility] Hgb Blood Gas 10.1 (L) 13.7 - [facility] 16.5 g/dL [facility] O2HB Art 98.8 (H) 94.0 - [facility] 97.0 % [facility] COHB Art 0.3 % [facility] Comment: Nonsmokers: 0.5-1.5% COHB Smokers: Variable, but usually less than 10% Toxic: 20-30% COHB Lethal: Greater than 60% COHB METHB Art 0.3 <=1.5 % [facility] Na Whole Blood 132 (L) 135 - 145 mmol/L [facility] K Whole Blood 4.0 3.5 - 5.0 mmol/L [facility] Comment: Please note: Patients with WBC >100,000 may have falsely elevated Potassium levels. Contact the Clinical Chemistry L aboratory if there are any questions. ICa Whole Blood 1.00 (L) 1.15 - 1.33 mmol/L [facility] Comment: Note: ??Total bilirubin higher than 20 m g/dL may lead to falsely low ionized calcium. CL Whole Blood 105 98 - 107 mmol/L [facility] Gluc Whole Bld 141 65 - 199 mg/dL [facility] Comment: Diabetes: >=200 mg/dL plus symp toms. Lactate WB 1.4 0.5 - 2.2 mmol/L [facility] Specimen Anatomical Collection Method Collection Time Receive d Time (Source) Location / / Volume Laterality Blood 09/27/2021 3:16 PM 2 3:16 EDT PM EDT Abdon Arreguin MD CHEMISTRY ORDERABLES Performing Organization Address City/State/[place] [address] (ABNORMAL) BLOOD GAS 2 ARTERIAL (09/27/2021 2:46 PM EDT) Analysis Performed At Patho logist Time Signature pH Art 7.36 7.35 - [facility] 7.45 [facility] pCO2 Art 44 35 - 45 [facility]ORY pO2 Art 554 (H) 85 - 104 [facility]ORY HCO3 Art 24.6 20.0 - [facility] 26.0 [facility] mmol/L [facility] BE Art -0.8 -3.0 - 3.0 [facility] mmol/L [facility] Hgb Blood Gas 9.6 (L) 13.7 - [facility] 16.5 g/dL [facility] O2HB Art 99.0 (H) 94.0 - [facility] 97.0 % [facility] COHB Art 0.3 % [facility] Comment: Nonsmokers: 0.5-1.5% COHB Smokers: Variable, but usually less than 10% Toxic: 20-30% COHB Lethal: Greater than 60% COHB METHB Art 0.3 <=1.5 % [facility] Na Whole Blood 133 (L) 135 - 145 mmol/L [facility] K Whole Blood 4.2 3.5 - 5.0 mmol/L [facility] Comment: Please note: Patients with WBC >100,000 may have falsely elevated Potassium levels. Contact the Clinical Chemistry L aboratory if there are any questions. ICa Whole Blood 0.97 (L) 1.15 - 1.33 mmol/L [facility] Comment: Note: ??Total bilirubin higher than 20 m g/dL may lead to falsely low ionized calcium. CL Whole Blood 105 98 - 107 mmol/L [facility] Gluc Whole Bld 128 65 - 199 mg/dL [facility] Comment: Diabetes: >=200 mg/dL plus symp toms. Lactate WB 1.1 0.5 - 2.2 mmol/L [facility] Specimen Anatomical Collection Method Collection Time Receive d Time (Source) Location / / Volume Laterality Blood 09/27/2021 2:46 PM 2 2:46 EDT PM EDT Abdon Arreguin MD CHEMISTRY ORDERABLES Performing Organization Address City/State/[place] [address] BLOOD GAS 2 ARTERIAL (09/27/2021 1:47 PM EDT) athologist Signature pH Art 7.37 7.35 - [facility] 7.45 [facility] pCO2 Art 44 35 - 45 [facility] pO2 Art 102 85 - 104 [facility] HCO3 Art 25.0 20.0 - [facility] 26.0 [facility] mmol/L [facility] BE Art -0.3 -3.0 - 3.0 [facility] mmol/L [facility] Hgb Blood Gas 13.7 13.7 - [facility] 16.5 g/dL [facility] O2HB Art 96.5 94.0 - [facility] 97.0 % [facility] COHB Art 0.7 % [facility] Comment: Nonsmokers: 0.5-1.5% COHB Smokers: Variable, but usually less than 10% Toxic: 20-30% COHB Lethal: Greater than 60% COHB METHB Art 0.3 <=1.5 % [facility] Na Whole Blood 139 135 - 145 mmol/L [facility] K Whole Blood 3.6 3.5 - 5.0 mmol/L [facility] Comment: Please note: Patients with WBC >100,000 may have falsely elevated Potassium levels. Contact the Clinical Chemistry L aboratory if there are any questions. ICa Whole Blood 1.15 1.15 - 1.33 mmol/L [facility] Comment: Note: ??Total bilirubin higher than 20 m g/dL may lead to falsely low ionized calcium. CL Whole Blood 105 98 - 107 mmol/L [facility] Gluc Whole Bld 116 65 - 199 mg/dL [facility] Comment: Diabetes: >=200 mg/dL plus symp toms. Lactate WB 1.1 0.5 - 2.2 mmol/L [facility] Specimen Anatomical Collection Method Collection Time Receive d Time (Source) Location / / Volume Laterality Blood 09/27/2021 1:47 PM 2 1:47 EDT PM EDT Abdon Arreguin MD CHEMISTRY ORDERABLES Performing Organization Address City/State/[place] [address] Transesophageal Echo/OR (09/27/2021 12:56 PM EDT) Anatomical Region Laterality Modality Cardiac Other Specimen (Source) Anatomical Collection Method Collection Time Re ceived Time Location / / Volume Laterality 09/27/2021 12:56 PM EDT Narrative 09/27/2021 4:32 PM EDT ? Version: 1 Name: [address] ?Study Date: 09/27/2021, 12: 56 PM ?Patient Location: [facility] : 1945 (MM/DD/YYYY) ? Age: 76 Years Gender: Male Ordering Physician: [id number]^KALLIE^ABDON^P^^^^^EPIC^^^^PROV ID Referring Physician: [id number]^UNKNOWN^^^^^^ ^EPIC^^^^PROVID ? Conclusions Intraoperative GIUSEPPE performed to [...] Date: 09/09, 12: 56 PM Patient Location: [facility] : 1945 (MM/DD/YYYY) Age: 76 Years Gender: Male Ordering Physician: [id number]^KALLIE^ABDON^P^^^^^EPIC^^^^PROV ID Referring Physician: [id number]^UNKNOWN^^^^^^ ^EPIC^^^^PROVID Conclusions Intraoperative GIUSEPPE performed to confirm [...] 12:05 PM EDT) athologist Signature Dispensed? Yes [facility] Specimen Anatomical Collection Method Collection Time Receive d Time (Source) Location / / Volume Laterality Blood 09/27/2021 12:05 09/27/2021 PM EDT 12:02 PM EDT Abdon Arreguin MD BLOOD BANK ORDERABLES Performing Organization Address City/[facility]/ZIP Code Phon e Number [address] POCT Glucose (09/27/2021 11:37 AM EDT) athologist Signature POC Glucose 124 65 - 199 [facility] mg/dL [facility] Comment: Supplemental ranges: <140 mg/dL before meals <180 mg/dL all other times of the day Specimen Anatomical Collection Method Collection Time Receive d Time (Source) Location / / Volume Laterality Blood 09/27/2021 11:37 09/27/2021 AM EDT 11:37 AM EDT Abdon Arreguin MD POINT OF CARE TEST ORDERABLE S Performing Organization Address City/[facility]/[place] [address] SCAN DOC: LAB (09/27/2021 12:00 AM EDT) Narrative 09/27/2021 12:00 AM EDT This result has an attachment that is no t available. Ordered by an unspecified provider. 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, unspecified vessel or lesion type documented in this encounter Administered Medications [...] Given 10/02/2021 9:07 AM EDT 2 Inhalation calcium chloride 10% (100 mg/mL) injecti on Given 09/27/2021 4:06 PM EDT 1 g ONCE PRN, Starting on Thu09/27/21 at 1606, Until 09/28/21 at 0433, Intra-Operative (Intra-Procedure), Routine cardioplegic solution no.16 (Cardioplegia New Bag 2021 4:07 PM EDT 953 mLs [place] Formula) solution CONTINUOUS PRN, Starting on Thu09/27/21 at 1607, Until Thu09/27/21 at 1912, Intra-Operative (Intra-Procedure) dextrose 10% infusion 250 mL, at 1,000 [...] for the duration of the active insulin. electrolyte replacement solution (pH 7.4) New Bag 2021 4:07 PM EDT 500 mLs (Normosol-R, Plasmalyte-A) infusion CONTINUOUS PRN, Starting on Thu09/27/21 at 1258, Until Thu09/27/21 at 1912, Intra-Operative (Intra-Procedure) New Bag 09/27/2021 12:58 PM EDT 1,350 mLs furosemide (Lasix) (10 mg/mL) injection 20 mg [...] 7:28 AM EDT 600 mg heparin (porcine) (1,000 units/mL) Given 09/27/2021 2:10 PM EDT 35,000 Units injection ONCE PRN, Starting on Thu09/27/21 at 1259, Until 09/28/21 at 0433, Intra-Operative (Intra-Procedure), Routine Given 09/27/2021 12:59 PM EDT 5,000 Units HYDROmorphone (Dilaudid) tablet 2 mg Given 09/28/2021 [...] 8:41 AM EDT 10 mLs magnesium sulfate (4 mEq/mL) (50 %) inje ction Given 09/27/2021 4:06 PM EDT 2 g ONCE PRN, Starting on Thu09/27/21 at 1606, Until 09/28/21 at 0433, Intra-Operative (Intra-Procedure), Routine mannitoL (Osmitrol) 20 % infusion New Bag 09/27/2021 3:08 PM EDT 40 g CONTINUOUS PRN, Starting on Thu09/27/21 at 1508, Until Thu09/27/21 at 1912, Intra-Operative (Intra-Procedure) metFORMIN (Glucophage) tablet 1,000 mg Given 10/03/2021 [...] Intravenous, EVERY 8 HOURS, First dose on Thu09/28/21 at 1300, Until Discontinued, Routine Given 10/02/2021 [...] Lopez RN)1152 (Given - Provider: Fransisca Hernandez, TY)1710 (Given - Provider: Fransisca Hernandez RN)2325 (Given - Provider: Tatiana Lopez RN) 0527 (Given - Provider: Tatiana gustafson RN)1128 (Given - Provider: Marilou Graff, TY)1754 (Given - Provider: Marilou Graff RN)2332 (Given - Provider: Tatiana Lopez RN) 0516 (Given - Provider: Tatiana gsutafson RN)1128 (Given - Provider: Esthela Vu RN) [...] (Given - Pr ovider: Fransisca Hernandez RN) 09 (Given - Provider: Marilou Graff RN)1404 (Given [...] Lopez RN) 0733 (Given - Provider: Marilou Graff, RN)1129 (Given - Provider: Marilou Graff RN)1639 [...] Marilou Graff, TY)1405 (Given - Provider: Marilou Graff, RN)2040 (Given - Provider: Tatiana Lopez RN) 0200 (Not Given - Provider: Tatiana Lopez RN - Reason: Patient/family refused)0807 (Given - Provider: Esthela uV, TY)1411 (Given - Provider: Esthela Vu, RN) 3 mL, Nebulization, EVERY 6 HOURS, [...] RN) 1130 (Patch Removed - Provider: Marilou Graff, TY) 1130 (Patch Removed - Provider: Esthela Vu, TY) Transdermal, EVERY 24 HOURS, First dose on [...] Fransisca Hernandez RN)2102 (Given - Provider: Tatiana Lopez, TY) 0527 (Given - Provider: Tatiana gustafson RN)1405 (Given - Provider: Marilou Graff RN)2102 (Given - Provider: Tatiana Lopez RN) 0516 (Given - Provider: Tatiana gustafson, TY)1411 (Given - Provider: Esthela Vu RN) 50 mg, Oral, EVERY 8 HOURS SCHEDULED, Fi rst dose (after last modification) on Thu10/01/21 at 0745, Until Discontinued, Hold for HR<60 or SBP<90, Routine pantoprazole EC (Protonix) tablet 40 mg 0846 (Given - Provider: Fransisca Hernandez, RN) 0902 (Given - Provider: Marilou Graff, RN) 0807 (Giv en - Provider: Esthela Vu, RN) 40 mg, Oral, DAILY, First dose on Thu at 1830, Until Discontinued, DO NOT CRUSH OR OPEN If unable to take PO, may give IV, Routine polyethylene glycoL (Miralax) packet 17 g 0900 (Not Gi milagros - Provider: Fransisca Hernandez RN - Reason: Patient/family refused) 0900 (Not Given - Provider: Marilou Graff, TY - Reason: Patient/family refused) 0807 (Given - Provider: Esthela Vu, TY) 17 g, Oral, DAILY, First dose on 09/10 at 0915, Until Discontinued, Routine potassium chloride ER (K-Dur/Klor-Con) tablet 40 mEq ( COMPLETED) 0602 (Given - Provider: Tatiana Lopez, TY)1152 (Given - Provider: Fransisca Hernandez, TY) 40 mEq, Oral, EVERY 4 HOURS, 2 doses, Fi rst dose on Thu10/01/21 at 0630, Last dose on Thu10/01/21 at 1030, 20 mEq tablet may be dissolved in water for administration, Routine potassium chloride ER (K-Dur/Klor-Con) tablet 40 mEq (COMPLE ANGELICA) 1128 (Given - Provider: Marilou Graff, RN) 40 mEq, Oral, ONCE, 1 dose, On Thu at 1115, 20 mEq tablet may be dissolved in water for administration, Routine potassium chloride ER (K-Dur/Klor-Con) tablet 40 mEq (COMPLE ANGELICA) 1249 (Given - Provider: Marilou Graff, RN) 40 mEq, Oral, ONCE, 1 dose, On Thu at 1200, 20 mEq tablet may be dissolved in water for administration, Routine pravastatin (Pravachol) tablet 80 mg 1710 (Given - Pro vider: Fransisca Hernandez RN) 1841 (Given - Provider: Marilou Graff, TY) 1611 (Giv en - Provider: Esthela Vu [...] RN)2014 (Given - Provider: Tatiana Lopez RN) 0922 (Given - Provider: Marilou Graff RN)2039 (Given [...] on Thu09/27/21 at 1743, Until Thu10/03/21 at 1914, Nausea Linked Groups Order Group 1: POCT [...] episode. & nbsp; For persistent hypoglycemia, con flap maker longer-acting treatment for the duration of the [...]
Routine documented in this encounter Care Teams Harness Cleaner Relationship Specialty Start Date End Date Jesusita Law MD PCP - General Family Medicine 09/03/[address] [facility] [address] documented as of this encounter
--- OUTSIDE RECORDS SUMMARY | 2021-10-25 11:04 | XMS_ITS | Encounter Summary ---
:1945 Author Organization [facility] [place] [address] Care Team Providers Name Role Phone Jesusita Law MD Primary Care Provider [phone] Encounter Details Date Type Department Care Team Description 01/19/2020 [place] [facility] [place] [facility] [address] Social History Tobacco Use Types Packs/Day Years Used Date Former Smoker Smokeless Tobacco: Former User Q uit: 1970 Comments: quit in 1992 Alcohol Use Standard Drinks/Week Comments No 0 (1 standard drink = 0.6 oz pure alcoho l) Sex Assigned at Date Recorded Not on file documented as of this encounter Miscellaneous Notes Telephone Encounter - [facility] - 01/19/2020 4:19 PM EST The patient is unsure if he wants MRI prostate scan because he is extremely claustrophobic. I reached out to have an MRI nurse contact him about PO Meds. documented in this encounter Plan of Treatment Upcoming Encounters Date Type Specialty Care Team Description 11/05/2021 Appointment Radiology 11/05/2021 Office Visit Cardiac Surgery Abdon Dawson MD [facility] CARDI[facility]ORACIC [place], [place] [address] (Wo rk) documented as of this encounter Visit Diagnoses Not on filedocumented in this encounter Care Teams Paleologist Relationship Specialty Start Date End Date Jesusita Law MD PCP - General Family Medicine 10/24/15 09/02/21 documented as of this encounter
--- OUTSIDE RECORDS SUMMARY | 2021-10-25 11:04 | XMS_ITS | Encounter Summary ---
:1945 [place] [address] Care Team Providers Name Role Phone Jesusita Law MD Primary Care Provider [phone] Reason for Visit Auth/Cert Specialty Diagnoses / Procedures Referred By Contact Refer red To Contact Diagnoses Coronary artery disease involving rincon heart with unstable angina pectoris, unspecified vessel or lesion type cad Abdon Dawson MD [facility] Procedures PRO CABG, ARTERIAL, SINGLE PRO CABG, ARTERY-VEIN, THREE PRO ENDOSCOPY W/VIDEO-ASST VEIN HARVEST, CABG @CABG, USING ARTERIAL GRAFT;SINGLE ARTERIAL GRAFT (WRVU 33.75) @CABG; 3 VENOUS GRAFTS & ARTERIAL GRAFT (WRVU 10.49) [facility] DR ALMEIDA HARVEST VEIN(S) FOR CABG (WRV U 0.31) CARDIOTHORAC[place] [address] Referral ID Status Reason Start Date Expiration Date Visits Requ ested Visits Authorized [id number] 1 1 Encounter Details Date Type Department Care Team Description 09/27/2021 Anesthesia Event Main Operating Room Rodney Nunez MD [facility] [address] [address] [facility] [place] [address] [place] [address] [phone] (Wo rk) Anesthesia Record Procedure Summary Procedure Name Responsible Anesthesia Start Anesthesia Stop Time Anesthesiologist Time @CABG, USING Henny Castanon MD 09/27/21 1245 09/27/21 2732 ARTERIAL GRAFT;SINGLE ARTERIAL GRAFT (WRVU 33.75) (N/A Chest) Events Date Time Event Comment 09/27/2021 1220 1245 AN Verify 1245 Start 1245 An Start Data 1304 An Induction 1307 An Intubation 1311 GIUSEPPE PROBE ONLY 1330 Anesthesia Ready 1343 Procedure Start 1352 Sternotomy 1435 CV Bypass init 1440 An Clamp start 1612 An Clamp Remove 1618 CP Bypass Ended 1635 Chest Closed 1715 an stop data 1755 Stop Name Total Midazolam 2 mg IV Lidocaine 100 mg Propofol 200 mg Propofol INF 442.71 mg PHENYLephrine INF 710 mcg HYDROmorphone 2 mg/mL 2 mg Rocuronium 100 mg Albuterol Inhaler 6 puff cefTRIAXone 2 g heparin (porcine) (1,000 units/mL) injection 35,000 Un its Dexmedetomidine 20 mcg NORepinephrine INF 380 mcg Agents Name O2 Air N2O Isoflurane (et) Blood No blood administrations on file. Lines, Drains, and Airways Type Details Placement Removal PIV 09/27/21; 1138; metacarpal 09/27/21 1138 by vein (top of hand), left; Ioana Isabel, [id number] catheter RN system; 18 gauge; ioana RN Incision 09/27/21; 1349; anterior, 09/27/21 1349 by midline; chest; vertical Lyndsay Richard RN Incision 09/27/21; 1349; Right, 09/27/21 1349 by medial; leg; Lyndsay Richard RN non-laparascopic puncture ETT Mask Ventilation: Easy 09/27/21 1304 by 09/27/21 2000 by (1); ETT Type: Cuffed; ETT LowHenny MD [facility], Size: 7.5 mm; Mac Blade: TY Back 4; Notes: Asleep, Pre-O2, Cricoid Pressure, Stylette; Attempts: 1; Laryngoscopy Grade: 2; ETT Placement Verified By: Auscultation, Capnometry, Visual; Secured at Teeth: 22 cm Urethral Catheter 09/27/21; 1309; Surgery 09/27/21 1309 by 09/30 1020 by longer than 2 hours; Lyndsay Richard RN Blanch ard, Marjorie Q1-2hr UOP in ICU patient E, RN without alternative; indwelling catheter with core temperature probe; hydrophilic coated, latex; 14; inserted at this facility (inserted without difficulty, urine noted in catheter); 1; 10; 10; none; drainage bag to dependent drainage; 09/30/21; 1020 Arterial Line 09/27/21; 1309; radial 09/27/21 1309 by 09/28/21 1300 by artery, left; 20 gauge; Henny Castanon MD Paul, Isabella R, Anatomical Landmarks; Yes RN - US guidance used but Image NOT saved; continuous blood pressure monitoring, frequent blood gas measurement; Sterile Prep, Sterile Gloves; 1; radial artery, right; no longer indicated, removed per policy, catheter intact; 09/28/21; 1300 CVC Single/Intro. 09/27/21; 1327; internal 09/27/21 1327 by 09/10 1300 by jugular vein, right; Henny Castanon MD Paul, Isa bella R, introducer; Anatomical RN Landmarks, Ultrasound Guidance; Yes - US guidance used for evaluation of potential access sites, vessel patency and realtime visualization of needle entry with permanent recording.; 9 Fr; GIUSEPPE, Tubing Manometry, Transducer; CVC Bundle Performed; no longer indicated, removed per physician, removed per policy/procedure, site care per policy/procedure, catheter/device intact; 09/28/21; 1300 PA Catheter 09/27/21; 1328; Right; 09/27/21 1328 by 09/28/21 0001 by internal jugular vein; Henny Castanon MD Rivera Agus, standard thermodilution TY Back catheter; 8 Fr; CVC Bundle Performed; CI 2.2 prior removal; 09/28/21; 0001 Closed/Suction Drain 09/27/21; 1440; 1; Right, 09/27/21 1440 by 09/27/21 2200 by Medial; Leg; Bulb; 7 Lyndsay Richard RN Rivera Agus, [place] TY Back Chest Tube 09/27/21; 1631; Right; 09/27/21 1631 by 09/28/21 1130 by anterior; mediastinum; Lyndsay Richard RN Paul, Isabella R, 28FR Straight; 09/28/21; RN 1130 Chest Tube 09/27/21; 1632; Left; 09/27/21 1632 by 09/28/21 1130 by posterior; mediastinum; Lyndsay Richard, RN Zelda l, Beatriz R, 28FR Angled; 09/28/21; RN 1130 documented in this encounter Social History Tobacco [...] encounter OR Notes Anesthesia Postprocedure Evaluation - Henny Castanon MD - 09/27/2021 5:55 PM EDT Department of Anesthesiology Post-procedure Note Patient: Lalo Guerra Procedure Summary Date: 09/27/21 Room / Location: [facility] OR [address] [place] [address] MAIN OR Anesthesia Start: 1245 Anesthesia Stop: Procedures: @CABG, USING ARTERIAL GRAFT;SINGLE ARTERIAL GRAFT (WRVU 33.75) (N/A Chest) @CABG; 3 VENOUS GRAFTS & ARTERIAL GRAFT (WRVU 10.49) (N/A Chest) ENDOSCOPIC HARVEST VEIN(S) FOR CABG (WRVU 0.31) (N/A Leg) Diagnosis: Coronary artery disease involving rincon heart with unstable angina pectoris, unspecified vessel orlesion type (CAD) Surgeons: Abdon Dawson MD Responsible Provider: Henny Castanon MD Anesthesia Type: general ASA Status: 3 All Anesthesia Providers: Anesthesiologist: Henny Castanon MD Vitals Value Taken Time BP Temp 35.5 ??C (95.9 ??F) 09/27/21 1730 Pulse 80 09/27/21 1755 Resp 14 09/27/21 1755 SpO2 100 % 09/27/21 1726 Pain Level 0 09/27/21 1725 Vitals shown include unvalidated device data. Patient Location: ICU Level of Consciousness: Sedated (Pharmacologic/Intentional) Pain Management: Satisfactory Analgesia PONV: None Cardiovascular Status: At Baseline and Hemodynamically Stable Respiratory Status: Intubated/Ventilated Postoperative Fluid Status: Intravascular EUvolemia Possible Anesthetic Complications: NONE apparent at time of evaluation Final Primary Anesthesia Type: General (The anesthetic type performed was the same as planned.) Comments: Anesthesia Preprocedure Evaluation - Henny Castanon MD - 09/27/2021 10:53 AM EDT Images from the original note were not included. Pre-Anesthesia Evaluation for: Lalo Guerra a 76 y.o. male. Procedure(s): @CABG, USING ARTERIAL GRAFT;SINGLE ARTERIAL GRAFT (WRVU 33.75) @CABG; 3 VENOUS GRAFTS & ARTERIAL GRAFT (WRVU 10.49) ENDOSCOPIC HARVEST VEIN(S) FOR CABG (WRVU 0.31) Patient Active Problem List Diagnosis Date Noted ??? Coronary artery disease involving rincon heart with unstable angina pectoris, unspecified vesselor [...] PCI performed by Vinod Hassan MD at [facility] CATH LABS Social History Tobacco Use ??? Smoking status: [...] Physical Exam: Preprocedure Vitals Current as of 09/27/21 1053 No BP, pulse, respiration, SpO2, or temperature recorded. Height: 170.2 cm (5' 7) (09/24/21) Weight: 114.8 kg (253 lb 1.6 oz) (09/24/21) BMI: 39.64 IBW: 66.1 kg (145 lb 12.2 oz) Airway Assessment: Mallampati: II TM distance: >3 FB Neck ROM: full Cardiovascular Assessment: Rhythm: regular Pulmonary Assessment: unlabored breathing Dental Assessment: Misc Assessment: IV access: Peripheral line Other exam findings: LABS Lab Results Component Value Date WBC 8.0 09/24/2021 HGB 13.5 (L) 09/24/2021 HCT 42.6 09/24/2021 MCV 87.8 09/24/2021 PLATELET 232 09/24/2021 Lab Results Component Value Date NA 141 09/24/2021 K 4.4 09/24/2021 CL 102 09/24/2021 CO2 27 09/24/2021 BUN 22 (H) 09/24/2021 CREATININE 0.94 09/24/2021 GLUCOSE 143 09/24/2021 GLUCFASTING 141 (H) 09/10/2021 CALCIUM 9.4 09/24/2021 No results found for: ALT, AST, GGT, ALKPHOS, BILITOT, BILIDIR, ALBUMIN, PROT No results found for: HA1C Lab Results Component Value Date INR 1.2 09/10/2021 No results found for: PTT Estimated Creatinine Clearance: 83.5 mL/min (based on SCr of 0.94 mg/dL). Last Filed Perioperative Cognitive Screening Value Time User AD8 Total Score: 0 09/24/2021 1:00 PM Sadia Mireles RN AD8 Informant: Other Informant 09/24/2021 1:00 PM Sadia Mireles RN CFS Frailty Score: 4 09/24/2021 1:00 PM Sadia Mireles RN Anesthesia Plan: ASA 3 general, with a(n) intravenous induction 76 y.o. year-old male here for CABG. LHC: LM: 30% distal LAD: ostial 75%, d1 ostial 90% Ramus: ostial 60% Lcx: ostial 75%, OM1 ostial 65% RCA: 50% ostial ISR in previous stent LVEDP 20 mm Hg MEDICAL HISTORY is also significant for CAD s/p DESx2 to RCA, atrial fibrillation on warfarin, sick sinus syndrome s/p PPM, HTN, T2DM. COPD - has 3 inhalers, often forgets the daily ones, uses albuterol 1x/month. BMI 39 ANESTHESIA HISTORY: No available records ANESTHETIC PLAN - GA, ETT - Standard ASA monitors + preinduction arterial line - Central venous catheter (right IJ cordis) and PA catheter - GIUSEPPE monitoring. Patient interviewed specifically for and has no contraindications to GIUSEPPE. Region - Intrathoracic Cardiac Informed Consent: Anesthetic plan and risks discussed with patient and spouse. Use of blood products discussed with patient and spouse who consented to blood products. Anesthesia Screening Anesthesia Preprocedure Evaluation - Henny Castanon MD - 09/27/2021 10:32 AM EDT Pre-Anesthesia Evaluation for: Lalo Guerra a 76 y.o. male. Procedure(s): @CABG, USING ARTERIAL GRAFT;SINGLE ARTERIAL GRAFT (WRVU 33.75) @CABG; 3 VENOUS GRAFTS & ARTERIAL GRAFT (WRVU 10.49) ENDOSCOPIC HARVEST VEIN(S) FOR CABG (WRVU 0.31) Patient Active Problem List Diagnosis Date Noted ??? Coronary artery disease involving rincon heart with unstable angina pectoris, unspecified vesselor [...] ??? PACEMAKER IMPLANT ? ? PRG CATH PLIL LEFT HEART CATH & ARTS W/INJ & ANGIO IMG S&I N/A 09/10/2021 CORONARY ANGIOGRAPHY; W C,POSSIBLE PCI performed by Vinod Hassan MD at [facility] CATH LABS Social History Tobacco Use ??? Smoking status: [...] Physical Exam: Preprocedure Vitals Current as of 09/27/21 1032 No BP, pulse, respiration, SpO2, or temperature recorded. Height: 170.2 cm (5' 7) (09/24/21) Weight: 114.8 kg (253 lb 1.6 oz) (09/24/21) BMI: 39.64 IBW: 66.1 kg (145 lb 12.2 oz) Anesthesia Physical Exam Last Filed Perioperative Cognitive Screening Value Time User AD8 Total Score: 0 09/24/2021 1:00 PM Sadia Mireles RN AD8 Informant: Other Informant 09/24/2021 1:00 PM Sadia Mireles RN CFS Frailty Score: 4 09/24/2021 1:00 PM Sadia Mireles RN Anesthesia Plan Anesthesia Screening documented in this encounter Plan of Treatment Upcoming Encounters Date Type Specialty Care Team Description 11/05/2021 Appointment Radiology 11/05/2021 Office Visit Cardiac Surgery Abdon Dawson MD [facility] C[place]I[facility]AC[facility] [place] [address] (Wo rk) documented as of this encounter Visit Diagnoses Not on filedocumented in this encounter Administered Medications Inactive Administered Medications - up to 3 most recent administrations Medication Order MAR Action Action Date Dose Rate Site albuteroL 90 mcg/actuation Given 09/27/2021 1:58 PM EDT 6 puffs inhaler Inhalation, PRN, Starting on Thu09/27/21 at 1358, Until Thu09/27/21 at 1755, Anesthesia Intra-op, Routine cefTRIAXone (Rocephin) injection Given 09/27/2021 1:30 PM EDT 2 g Intravenous, PRN, Starting on Thu09/27/21 at 1330, Until Thu09/27/21 at 1755, Anesthesia Intra-op, Routine dexmedeTOMIDine (Precedex) (4 mcg/mL) bolus Given 09/27/2021 2:1 6 PM EDT 4 mcg injection (Anesthsia) Intravenous, PRN, Starting on Thu09/27/21 at 1412, Until Thu09/27/21 at 1755, Anesthesia Intra-op, Routine Given 09/27/2021 2:12 PM EDT 8 mcg Given 09/27/2021 1:58 PM EDT 8 mcg heparin (porcine) (1,000 units/mL) Given 09/27/2021 2:10 PM EDT 35,000 Units injection ONCE PRN, Starting on Thu09/27/21 at 1259, Until Thu09/28/21 at 0433, Intra-Operative (Intra-Procedure), Routine Given 09/27/2021 12:59 PM EDT 5,000 Units HYDROmorphone (Dilaudid) (2 mg/mL) multi-dose Given 09/28/19 1:40 PM EDT 1 mg injection solution Intravenous, PRN, Starting on Thu09/27/21 at 1300, Until Thu09/27/21 at 1755, Anesthesia Intra-op, Routine Given 09/27/2021 1:00 PM EDT 0.5 mg Given 09/27/2021 12:55 PM EDT 0.5 mg lidocaine (pf) (Xylocaine) (20 mg/mL) 2% Given 09/27/2021 1:04 P M EDT 100 mg injection syringe Intravenous, PRN, Starting on Thu09/27/21 at 1304, Until Thu09/27/21 at 1755, Anesthesia Intra-op, Routine midazolam (pf) (Versed) (1 mg/mL) multi-dose Given 12:54 PM EDT 1 mg injection Intravenous, PRN, Starting on Thu09/27/21 at 1245, Until Thu09/27/21 at 1755, Anesthesia Intra-op, Routine Given 09/27/2021 12:45 PM EDT 1 mg NORepinephrine (Levophed) (16 Rate/Dose Change 09/27/2021 4:34 4 mc g/min 15 mL/hr mcg/mL) in dextrose 5% 250 mL PM EDT infusion Intravenous, CONTINUOUS PRN, Starting on Thu09/27/21 at 1612, Until Thu09/27/21 at 1755, Anesthesia Intra-op, Routine Restarted 09/27/2021 4:29 PM EDT 2 mcg/min 7.5 mL/hr Rate/Dose Change 09/27/2021 4:23 PM EDT 2 mcg/min 7.5 mL/hr PHENYLephrine Rate/Dose Change 09/27/2021 1:37 10 mcg/min 7.5 mL/hr (Babak-Synephrine) (80 mcg/mL) PM EDT in sodium chloride 0.9% 250 mL infusion Intravenous, CONTINUOUS PRN, Starting on Thu09/27/21 at 1313, Until Thu09/27/21 at 1755, Anesthesia Intra-op, Routine Rate/Dose Change 09/27/2021 1:33 PM EDT 20 mcg/min 15 mL/hr New Bag 09/27/2021 1:13 PM EDT 30 mcg/min 22.5 mL/hr propofoL (Diprivan) (10 mg/mL) New Bag 09/27/2021 4:18 PM 40 m cg/kg/min 27.384 mL/hr infusion EDT Intravenous, CONTINUOUS PRN, Starting on Thu09/27/21 at 1618, Until Thu09/27/21 at 1755, Anesthesia Intra-op, Routine propofoL (Diprivan) 10 mg/mL bolus injection Given 1:04 PM EDT 200 mg (Anesthesia) Intravenous, PRN, Starting on Thu09/27/21 at 1304, Until Thu09/27/21 at 1755, Anesthesia Intra-op rocuronium (Zemuron) (10 mg/mL) multi-dose Given 09/27/2021 1:04 PM EDT 100 mg injection Intravenous, PRN, Starting on Thu09/27/21 at 1304, Until Thu09/27/21 at 1755, Anesthesia Intra-op, Routine documented in this encounter Care Teams Manager Interface Relationship Specialty Start Date End Date Jesusita Law MD PCP - General Family Medicine 09/03/[address] [place] [address] documented as of this encounter
--- OUTSIDE RECORDS SUMMARY | 2021-10-25 11:05 | XMS_ITS | Encounter Summary ---
:1945 Author Organization [place] [address] Care Team Providers Name Role Phone Judy CONTE MD, Darron Cosby Primary Care Provider [phone] Encounter Details Date Type Department Care Team Description 10/23/2015 Orders Only Cardiology at [facility] [address] ASCVD (arteriosclerotic [facility] [place] cardiovascular disease) [place], [place] CENTER [address] CARDIOLOGY DEPT. [phone] [place], [place] [address] Social History Tobacco Use Types Packs/Day Years Used Date Former Smoker Smokeless Tobacco: Former User Q uit: 1970 Comments: quit in 1992 Sex Assigned at Date Recorded Not on file documented as of this encounter Plan of Treatment Upcoming Encounters Date Type Specialty Care Team Description 11/05/2021 Appointment Radiology 11/05/2021 Office Visit Cardiac Surgery Abdon Dawson MD [facility] CARDIOTHORACIC [address] [place], [place] [address] (Wo rk) documented as of this encounter Procedures Procedure Name Priority Date/Time Associated Diagnosis Comme nts CARDIAC CATHETERIZATION Routine 10/24/2015 12:55 ASCVD Results for this PM EDT (arteriosclerotic procedure are in cardiovascular the results disease) section. documented in this encounter Results CARDIAC CATHETERIZATION (10/24/2015 12:55 PM EDT) Anatomical Region Laterality Modality Other Specimen (Source) Anatomical Location Collection Method / Collectio n Time Received Time / Laterality Volume Narrative 10/24/2015 1:13 PM EDT ?[facility] ? Cardiac Cathete rization/Intervention Report ? Patient Name: Grammo, Lalo R. ? Procedure Date: 10/24/2015 ? A #: [id number] ? Primary Physician: Rodney, Jomar F ? Case #: [id number] ? File Name: [id number] ? Catheterization Order Number: [id number] ? [facility] ? Final Report [place], [place] ? Patient Name: ? Lalo R. Gra mmo ?ID#: ?[id number] ? : ?1945 ? Procedure Date: ? Azucena 14, 2 016 ? Case #: ? [id number] ? Room: ? 1 ? Case Physician: ? Jomar Stevens M. D. ?Start: ?11:00 ?Fellow: ? Neisha jimenez, M.D. ? Admission: ??10/24/2015 ? Referring Physician: ??Darron tello II MKathiD. ? Procedures: ?* Coronary Angiography ?* Left Heart Catheterization ?* Coronary Stent Insertion ?* Cardioversion / Defibrillatio n During Nuisance Animal Damage Control Agent Procedure ? History ?Lalo Guerra is a 70 year old man. He has hypertension and a family ?history of coronary artery dise ase. The patient has a history of smoking. ?He has hypercholesterolemia man aged with lipid therapy. The patient has ?stable angina and a history of chest pain. He has a history of dyspnea ?with NYHA functional class III. The patient has a history of atrial ?fibrillation/atrial flutter. He has a history of a heart murmur. The ?patient has a PPM implantation. He has a history of carotid artery ?disease, a carotid endarterecto my and a history of transient ischemic ?attacks. The patient also has a history of an abnormal stress test. Prior ?to the initiation of this proce dure, the patient was designated as ASA ?Class III. ? Patient Status at Catheterization: ?The patient presented with: sta ble angina (w/i 42 days). [place] ?Cardiovascular Society angina c lass was III. This patient was on beta ?blockers and calcium yuliet blo ckers prior to the procedure. A SPECT ?stress test was performed and r esults were Positive and Intermediate Risk ?ischemia assessment. ? Technique: ?A 6 SLFr sheath was inserted in the right radial artery utilizing the ?Seldinger technique. The left c oronary artery was injected utilizing a ?5Fr Bobo Radial catheter. A 6F r AL-1 catheter was used to inject the ?right coronary artery. Left milagros tricular pressure was performed with a 6Fr ?AL-1 catheter. Coronary stent i nsertion was performed and the equipment ?utilized will be described in [facility] intervention summary section. 5,000 ?units of heparin were administe red. A total of 400cc of Omnipaque were ?opened, 328cc of Omnipaque were administered and 72cc of Omnipaque were ?wasted. Radiation: Fluoro time was 35.0 minutes, dose area product was ?266,223 mGYcm2 and air kerma wa s 3,210 mGY. ?The patient received the follow ing medications prior to and during the ?procedure: Aspirin (any), Ticag relor and Unfractionated Heparin (any). ? Hemodynamics: ?Left Heart Pressures ? Resting: ? Syst D iast ? EDP ?a ?v ? m ?Ao 101 ?? 68 ?82 ?LV 114 ? 21 ? Post Contrast: ? Syst D iast ? EDP ?a ?v ? m ?Ao 110 ?? 59 ?79 ?LV 113 ? 15 ? Coronary Angiography: ?Dominance: Right ?Left Main ? The left main was normal . ?Left Anterior Descending ? There was mild diffuse d isease of the entire vessel segment of the ? left anterior descending artery (LAD) and it was calcified. ??The LAD ? was large. ?Left Circumflex ? There was mild diffuse d isease of the entire vessel segment of the ? left circumflex artery ( LCX) and it was calcified. ??The LCX was ? large. ?Right Coronary Artery ? There was mild diffuse d isease of the entire vessel segment of the ? right coronary artery (R CA). ??The RCA was large. ??The ostial segment ? of the RCA had a calcifi ed diffuse 99% stenosis. ??Distal flow was ? via collaterals from the LAD. ??Distal flow was decreased. ??There ? also was a 50% tortuous long segmental stenosis of the mid segment ? of the RCA. ??Distal cyndie w was normal. ? Indication for Intervention: ?Coronary intervention was indic ated for treatment of stable angina, CCS ?Class III. Left ventricular Eje ction Fraction was estimated at 65 ?percent. The priority for the p rocedure was Elective. The NCDR indication ?for the procedure was Stable an michelle. ? Intervention Summary: ?Right Coronary Artery ? Ostial 99% ? Stent insertion was performed on the 99% stenosis in the ? ostial segment of the RCA. This was a de damon lesion. ? According to th e ACC/AHA classification system, this lesion ? was a type C mo derate risk lesion. Primary prevention of ? restenosis was the indication for stent insertion. Vessel flow ? pre interventio n was CAYDEN 1. ? Stent insertion was accomplished through a 6 Fr. AL 1 guide. ? The lesion was predilated with a 2.50mm EUPHORA 20 MM balloon ? with a maximum inflation pressure of 16 atmospheres. ??A ? premounted 3.00 x 22 mm Resolute (MODESTO) was deployed with a ? maximum inflati on pressure of 16 atmospheres. ??Following stent ? deployment, the lesion was dilated using a 3.00mm NC EUPHORA ? 20 MM balloon w ith a maximum inflation pressure of 30 ? atmospheres. ? Another stent i nsertion was accomplished through a 6 Fr. AL 1 ? guide. ??The le dago was predilated with a 2.50mm EUPHORA 20 MM ? balloon with a maximum inflation pressure of 16 atmospheres. ? A premounted 2. 50 x 18 mm Resolute (MODESTO) was deployed with a ? maximum inflati on pressure of 18 atmospheres. ??Following stent ? deployment, the lesion was dilated using a 3.00mm NC EUPHORA ? 20 MM balloon w ith a maximum inflation pressure of 20 ? atmospheres. ? The final outco me was defined as successful. There was no ? residual stenos is following this intervention. The final CAYDEN ? flow was 2. ? Difficult engag ement, RCA almost flush occluded. REquired AL1, ? crossed withWhi sper wire and dilated 1.5, 2.5 mm balloon then ? stented x 2. VF with catheter damping cardioverted. ? Vascular Access: ?Vascular Access Management: ? Mechanical Compression o f the right radial artery access site was ? performed. ? Conclusions: ?* One vessel coronary artery di sease (RCA) ?* Elevated left ventricular end diastolic pressure ?* Successful stent insertion of the ostial RCA lesion ? Complications/Events: ?During this case, the patient h ad ventricular tachycardia and/or ?ventricular fibrillation. ? Recommendations: ?The patient's medical regimen w as changed as follows: Drug eluting ?stent(s) implanted in treatment of stable ischemic heart disease (SIHD). 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 Recommend dual ?antiplatelet therapy (DAPT) wit h low dose aspirin (81 mg daily) and ?clopidogrel 75 mg daily for a m inimum 6 months. Low dose aspirin to be ?continued indefinitely unless c ontraindicated. ? Comments: ?DAPT recommendations: ASA 81 mg daily x 1 monthe with clopidogrel 75 mg ?daily and waerfarin to !NR 2.0. ??Stop the aspirin 1 month post PCI and ?continue clopidogrel 75 mg charito y and warfarin for 6 months. At 6 months ?post PCI, stop the clopidogrel and restart aspirin 81 mg daily. ?The attending physician was presen t for the entire procedure. ?Dr. Jomar Stevens M.D. performed th e coronary angiography, left heart ?catheterization, stent insertion-c oronary and cardioversion / ?defibrillation during procedure. ? Jomar Stevens M.D. ? Electronically Signed by: Angela Thompson ? Report Finalized: 10/24/2015 ??13:01 ? Procedure Note Jomar Stevens MD - 10/24/2015 [facility] Cardiac Catheterization/Intervention Re port Patient Name: Lalo Guerra Procedure Date: 10/24/2015 A #: [id number] Primary Physician: Jomar Stevens Case #: [id number] File Name: [id number] Catheterization Order Number: [id number] [facility] Final Report [place], [place] Patient Name: Lalo Guerra ID#: [id number] : 1945 Procedure Date: October 24, 2015 Case #: [id number] Room: 1 Case Physician: Jomar Stevens M.D. Start: 11:00 Fellow: Neisha Martinez M.D. Admission: 0 10/24/2015 Referring Physician: Darron Kim II, M.D. Procedures: * Coronary Angiography * Left Heart Catheterization * Coronary Stent Insertion * Cardioversion / Defibrillation During Nuisance Animal Damage Control Agent Procedure History Lalo Guerra is a 70 year old man. He has hypertension and a family history of coronary artery disease. The patient has a history of smoking. He has hypercholesterolemia managed wit h lipid therapy. The patient has stable angina and a history of chest pa in. He has a history of dyspnea with NYHA functional class III. The pat ient has a history of atrial fibrillation/atrial flutter. He has a h istory of a heart murmur. The patient has a PPM implantation. He has a history of carotid artery disease, a carotid endarterectomy and a history of transient ischemic attacks. The patient also has a history of an abnormal stress test. Prior to the initiation of this procedure, th e patient was designated as ASA Class III. Patient Status at Catheterization: The patient presented with: stable eliot na (w/i 42 days). [place] Cardiovascular Society angina class was III. This patient was on beta blockers and calcium yuliet blockers pr ior to the procedure. A SPECT stress test was performed and results w ere Positive and Intermediate Risk ischemia assessment. Technique: A 6 SLFr sheath was inserted in the rig ht radial artery utilizing the Seldinger technique. The left coronary artery was injected utilizing a 5Fr Bobo Radial catheter. A 6Fr AL-1 c atheter was used to inject the right coronary artery. Left ventricular pressure was performed with a 6Fr AL-1 catheter. Coronary stent insertion was performed and the equipment utilized will be described in the inter vention summary section. 5,000 units of heparin were administered. A t otal of 400cc of Omnipaque were opened, 328cc of Omnipaque were adminis tered and 72cc of Omnipaque were wasted. Radiation: Fluoro time was 35.0 minutes, dose area product was 266,223 mGYcm2 and air kerma was 3,210 mGY. The patient received the following medi cations prior to and during the procedure: Aspirin (any), Ticagrelor an d Unfractionated Heparin (any). Hemodynamics: Left Heart Pressures Resting: Syst Diast EDP a v m Ao 101 68 82 LV 114 21 Post Contrast: Syst Diast EDP a v m Ao 110 59 79 LV 113 15 Coronary Angiography: Dominance: Right Left Main The left main was normal. Left Anterior Descending There was mild diffuse disease of the e ntire vessel segment of the left anterior descending artery (LAD) a nd it was calcified. The LAD was large. Left Circumflex There was mild diffuse disease of the e ntire vessel segment of the left circumflex artery (LCX) and it was calcified. The LCX was large. Right Coronary Artery There was mild diffuse disease of the e ntire vessel segment of the right coronary artery (RCA). The RCA wa s large. The ostial segment of the RCA had a calcified diffuse 99% stenosis. Distal flow was via collaterals from the LAD. Distal fl ow was decreased. There also was a 50% tortuous long segmental stenosis of the mid segment of the RCA. Distal flow was normal. Indication for Intervention: Coronary intervention was indicated for treatment of stable angina, CCS Class III. Left ventricular Ejection Fr action was estimated at 65 percent. The priority for the procedure was Elective. The NCDR indication for the procedure was Stable angina. Intervention Summary: Right Coronary Artery Ostial 99% Stent insertion was performed on the 99 % stenosis in the ostial segment of the RCA. This was a d e damon lesion. According to the ACC/AHA classification system, this lesion was a type C moderate risk lesion. Prim rj prevention of restenosis was the indication for stent insertion. Vessel flow pre intervention was CAYDEN 1. Stent insertion was accomplished throug h a 6 Fr. AL 1 guide. The lesion was predilated with a 2.50mm EUPHORA 20 MM balloon with a maximum inflation pressure of 16 atmospheres. A premounted 3.00 x 22 mm Resolute (MODESTO) was deployed with a maximum inflation pressure of 16 atmosp heres. Following stent deployment, the lesion was dilated usin g a 3.00mm NC EUPHORA 20 MM balloon with a maximum inflation pressure of 30 atmospheres. Another stent insertion was accomplishe d through a 6 Fr. AL 1 guide. The lesion was predilated with a 2.50mm EUPHORA 20 MM balloon with a maximum inflation pressu re of 16 atmospheres. A premounted 2.50 x 18 mm Resolute (MODESTO ) was deployed with a maximum inflation pressure of 18 atmosp heres. Following stent deployment, the lesion was dilated usin g a 3.00mm NC EUPHORA 20 MM balloon with a maximum inflation pressure of 20 atmospheres. The final outcome was defined as succes sful. There was no residual stenosis following this interv ention. The final CADYEN flow was 2. Difficult engagement, RCA almost flush occluded. REquired AL1, crossed withWhisper wire and dilated 1. 5, 2.5 mm balloon then stented x 2. VF with catheter damping c ardioverted. Vascular Access: Vascular Access Management: Mechanical Compression of the right rad ial artery access site was performed. Conclusions: * One vessel coronary artery disease (R CA) * Elevated left ventricular end diastol ic pressure * Successful stent insertion of the ost ial RCA lesion Complications/Events: During this case, the patient had ventr icular tachycardia and/or ventricular fibrillation. Recommendations: The patient's medical regimen was james ed as follows: Drug eluting stent(s) implanted in treatment of stab le ischemic heart disease (SIHD). 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 Recommend dual antiplatelet therapy (DAPT) with low do se aspirin (81 mg daily) and clopidogrel 75 mg daily for a minimum 6 months. Low dose aspirin to be continued indefinitely unless contraind icated. Comments: DAPT recommendations: ASA 81 mg daily x 1 monthe with clopidogrel 75 mg daily and waerfarin to !NR 2.0. Stop th e aspirin 1 month post PCI and continue clopidogrel 75 mg daily and wa rfarin for 6 months. At 6 months post PCI, stop the clopidogrel and rest art aspirin 81 mg daily. The attending physician was present for the entire procedure. Dr. Jomar Stevens M.D. performed the cor onary angiography, left heart catheterization, stent insertion-hollins ry and cardioversion / defibrillation during procedure. Jomar Stevens M.D. Electronically Signed by: Angela Thompson Report Finalized: 10/24/2015 13:01 Jomar Stevens MD CARDIAC CATH ORDERABLES documented in this encounter Visit Diagnoses Diagnosis ASCVD (arteriosclerotic cardiovascular d isease) Unspecified cardiovascular disease ASCVD (arteriosclerotic cardiovascular d isease) Unspecified cardiovascular disease documented in this encounter Care Teams Extrusion Process Operator Relationship Specialty Start Date End Date Darron Kim II, MD PCP - General 01/01/10 10/23/15 [address] [place] [address] documented as of this encounter
--- OUTSIDE RECORDS SUMMARY | 2021-10-25 11:05 | XMS_ITS | Encounter Summary ---
:1945 [place] [address] Care Team Providers Name Role Phone Jeff Olivera MD Primary Care Provider [phone] Reason for Visit Auth/Cert Specialty Diagnoses / Procedures Referred By Contact Refer red To Contact Diagnoses S/P angioplasty with stent ascvd Procedures CARDIAC CATHETERIZATION Referral ID Status Reason Start Date Expiration Date Visits Requ ested Visits Authorized [id number] 1 1 Encounter Details Date Type Department Care Team Description 10/24/2015 Surgery Personal Injury Specialist Vaishnavi Kraus MD CARDIAC CATHETERIZATION [facility] DR Fisher [place] [address] [place] [address] [phone] (Wo rk) Social History Tobacco Use Types [...] Sign Reading Time Taken Comments Blood Pressure 128/69 10/24/2015 8:52 AM EDT Pulse 56 10/24/2015 8:52 AM EDT Temperature 36.7 ??C (98.1 ??F) 10/24/2015 8:52 AM EDT Respiratory Rate 16 10/24/2015 8:52 AM EDT Oxygen Saturation 98% 10/24/2015 8:52 AM EDT Inhaled Oxygen Concentration - - Weight 110.6 kg (243 lb 12.8 oz) 10/24/2015 8:52 AM EDT Height 170.2 cm (5' 7) 10/24/2015 8:52 AM EDT Body Mass Index 38.18 10/24/2015 8:52 AM EDT documented in this encounter Discharge Summaries Raj Avlia MD - 10/25/2015 7:24 AM EDT Discharge Summary Patient Name: Lalo Guerra Patient Age: 70 y.o. Language: French Race: White Ethnicity: Not nor Admit date: 10/24/2015 Discharge date and time: 10/25/15 Attending Physician: Raj Avila MD Discharge Physician: Rodney Follow-up Recommendations for Providers: DAPT recommendations: Restart warfarin at previous dose tonoct. ASA 81 mg daily x 1 month with clopidogrel 75 mg daily and waerfarin to !NR 2.0. Stop the aspirin 1 month post PCI and continue clopidogrel 75 mg daily and warfarin for 6 months. At 6 months post PCI, stop the clopidogrel and restart aspirin 81 mg daily. Follow-up with DR. Real 1 month Inpatient Provider Contact Information: RAJ AVILA MD [phone] Discharge Diagnoses (Hospital Problems) and Secondary Diagnoses (Chronic Problems): Active Hospital Problems Diagnosis ??? ASCVD (arteriosclerotic cardiovascular disease) Progressive CCS [...] pacemaker Jul 2012 ??? Sick sinus syndrome Resolved Hospital Problems Diagnosis Date Resolved No resolved problems to display. There are no active non-hospital problems to display for this patient. Operations/Major Procedures: Operations: Procedure(s) with comments: CARDIAC CATHETERIZATION - Procedure: Coronary Angiography PCI Ostial RCA History of Presentation: 70 yo male with progressive limiting angina and a positive nuclear perfusion ETT referred by Dr. Real for cath. Hospital Course: ((% Ost RCA lesion successfully stented x 2, complicated by VF, cardioverted. Uncomplicated recovery. No additional rhythm problems. Feels well and ready for discharge. Functional and Cognitive Status: normal Important Studies and Lab Data: Labs: Lab Results Component Value Date WBC 12.0 (H) 10/25/2015 HGB 15.6 10/25/2015 HCT 48.5 10/25/2015 PLATELET 219 10/25/2015 Recent Labs 10/25/15 0340 INR 1.1 Lab Results Component Value Date NA 141 10/25/2015 K 4.4 10/25/2015 CL 101 10/25/2015 CO2 24 10/25/2015 BUN 15 10/25/2015 CREATININE 0.99 10/25/2015 No results for input(s): TSH in the last 7068 hours. No results for input(s): HA1C in the last 7068 hours. Recent Labs 10/25/15 0340 CK 82 TROPONINT <0.03 Pending Studies and Lab Data: none Discharge Conditions/Prognosis: stable Discharge to: home Updated Allergies/ADRs: Allergies Allergen Reactions ??? Lipitor [Atorvastatin] Other (See Comments) myositis ??? Amiodarone Bluish discoloration on face Immunizations Given this Hospitalization: There is no immunization history on file for this patient. Discharge Medications: Your Medications New Medications Dose Details aspirin 81 mg Tbec Take 1 tablet by mouth daily. 81 mg Quantity: 30 tablet Refills: 3 clopidogrel 75 mg Tab Commonly known as: PLAVIX Take 1 tablet by mouth daily. 75 mg Quantity: 90 tablet Refills: 3 Continued medications, unchanged Dose Details aclidinium bromide 400 mcg/actuation Aepb Inhale into the lungs. Refills: 0 DILTiazem 240 mg Cp24 Commonly known as: CARDIZEM CD Take 240 mg by mouth daily. 240 mg Refills: 0 DULERA 100-5 mcg/actuation Hfaa Inhale into the lungs. Generic drug: Mometasone-Formoterol Refills: 0 gemfibrozil 600 mg Tab Commonly known as: LOPID Take 600 mg by mouth 2 times daily (before meals). 600 mg Refills: 0 meTOPROLOL tartrate 25 mg Tab Commonly known as: LOPRESSOR Take 25 mg by mouth 2 times daily. 25 mg Refills: 0 nitroGLYcerin 0.4 mg Subl Commonly known as: NITROSTAT Place 0.4 mg under the tongue every 5 minutes as needed for Chest pain. 0.4 mg Refills: 0 pravastatin 80 mg Tab Commonly known as: PRAVACHOL Take 80 mg by mouth daily. 80 mg Refills: 0 SYNTHROID 100 mcg Tab Take 100 mcg by mouth daily. Generic drug: levothyroxine 100 mcg Refills: 0 warfarin 1 mg Tab Commonly known as: COUMADIN Take 1 mg by mouth daily. 1 mg Refills: 0 Smoking Status at Discharge: History Smoking Status ??? Former Smoker Smokeless Tobacco ??? Former User ??? Quit date: 1969 Comment: quit in 1992 Instructions Given to Patient at Discharge: Patient Instructions DAPT recommendations: Restart warfarin at previous dose tonight Oct. ASA 81 mg daily x 1 month with clopidogrel 75 mg daily and waerfarin to !NR 2.0. Stop the aspirin 1 month post PCI and continue clopidogrel 75 mg daily and warfarin for 6 months. At 6 months post PCI, stop the clopidogrel and restart aspirin 81 mg daily. Anti-coagulation follow up: per routine Call your doctor if: Chest pain, shortness of breath, pain or swelling in legs occurs. If you have non-emergent questions between now and the time of your follow up appointments: During 8am-5pm Thursday through Thursday call [phone] to speak with a nurse in the cardiology clinic All other times call [phone] and ask to speak to the trauma surgeon distribution tech. Return to work: 48 hours Driving: No driving for 24 hours after catheterization. Follow up Appointments: PCP [employer] Dr Cristhian Real 1 month Home oxygen therapy: N/A Arrangements for VNA/home care: none General Instructions None Discharge References/Attachments None RAJ AVILA MD documented in this encounter Discharge Instructions Patient InstructionsRaj Avila MD - 10/24/2015 1:00 PM EDT DAPT recommendations: Restart warfarin at previous dose tonight Oct. ASA 81 mg daily x 1 month with clopidogrel 75 mg daily and waerfarin to !NR 2.0. Stop the aspirin 1 month post PCI and continue clopidogrel 75 mg daily and warfarin for 6 months. At 6 months post PCI, stop the clopidogrel and restart aspirin 81 mg daily. Anti-coagulation follow up: per routine Call your doctor if: Chest pain, shortness of breath, pain or swelling in legs occurs. If you have non-emergent questions between now and the time of your follow up appointments: During 8am-5pm Thursday through Thursday call [phone] to speak with a nurse in the cardiology clinic All other times call [phone] and ask to speak to the trauma surgeon distribution tech. Return to work: 48 hours Driving: No driving for 24 hours after catheterization. Follow up Appointments: PCP [employer] Dr Cristhian Real 1 month Home oxygen therapy: N/A Arrangements for VNA/home care: none AttachmentsThe following attachments cannot be sent through Care Everywhere.PCI (PERCUTANEOUS CORONARY INTERVENTION) : POST-OP (IRISH)documented in this encounter Medications at Time of [...] documented as of this encounter Progress Notes Sidra Lindo RN - 10/25/2015 7:47 AM EDT Activity Summary: By discharge, patient will be able to perform self care, walk 5-7 minutes and go up and down stairs without signs or symptoms of ischemia. Date /Initials Baseline Response Symptoms/Comments HE 10/25/15 Activity HR 74 96 Pt denied chest pain/pressure. Pt did endorse some SOB but stated it was an improvement from before the procedure. 5 min walk BP 115/71 (81) 136/76 (92) HR reached as high as 109 with no ectopy noted. With stairs O2 Sat 97% 97% Pt tolerated well ECG paced rhythm Paced rhythm Raj Avila MD - 10/25/2015 7:18 AM EDT Inpatient Cardiology Discharge Day Note Patient Name: Lalo Garcia Grammo Service: Interventional Responsible Attending: Raj Avila MD Reason for continued hospitalization: Evaluation and management of s/p complicated PCI ost RCA Active Problems: Active Hospital Problems Diagnosis ??? Sick sinus syndrome ??? ASCVD (arteriosclerotic cardiovascular disease) Progressive CCS [...] Presence of permanent cardiac pacemaker Jul 2012 Resolved Hospital Problems Diagnosis Date Resolved No resolved problems to display. There are no active non-hospital problems to display for this patient. Interval History: Sable overnight, no angina, rhythm disturbance access site OK. Ready for discharge. Review of Systems: Review of Systems No change Telemetry: HR: 70 AV paced Meds: Scheduled Meds: ??? aclidinium bromide 1 puff Inhalation BID ??? DILTiazem 240 mg Oral Daily ??? gemfibrozil 600 mg Oral BID AC ??? levothyroxine 100 mcg Oral QAM ??? meTOPROLOL tartrate 25 mg Oral BID ??? pravastatin 80 mg Oral QPM ??? aspirin 81 mg Oral Daily ??? clopidogrel 75 mg Oral Daily ??? warfarin (COUMADIN) daily order reminder Oral Q24H ??? warfarin 1 mg Oral QPM ??? Mometasone-Formoterol 2 puff Inhalation BID Continuous Infusions: PRN Meds:nitroGLYcerin, ALPRAZolam Physical Exam: Vital Signs: Last value Range last 8 hrs Temperature Temp: 37 ??C (98.6 ??F) Temp: [36.8 ??C (98.2 ??F)-37 ??C (98.6 ??F)] Heart Rate Heart Rate: 63 Heart Rate: [63-68] Blood Pressure BP: 133/73 BP: (133-137)/(71-73) Respiratory Rate Resp: 18 Resp: [18-19] SpO2 SpO2: 99 % SpO2: [99 %] Physical Exam Chest clear Cor nl Access site ecchymotic, pulse OK Lab Comments: Recent Results (from the past 24 hour(s)) Prothrombin Time Result Value Ref Range PT 13.7 12.0 - 15.0 sec INR 1.0 0.9 - 1.1 Cardiac Enzymes Result Value Ref Range Troponin-T <0.03 <=0.03 ng/mL CK, Total 82 0 - 200 unit/L BMP w/fasting Glucose Result Value Ref Range Glucose Fasting 119 (H) 65 - 99 mg/dL BUN 15 10 - 20 mg/dL Creatinine 0.99 0.80 - 1.50 mg/dL Sodium 141 135 - 145 mmol/L Potassium 4.4 3.5 - 5.0 mmol/L Chloride 101 98 - 107 mmol/L CO2 24 22 - 31 mmol/L Anion Gap 16 (H) 5 - 15 mmol/L Calcium 9.1 8.5 - 10.5 mg/dL Estimated GFR >60 >=60 Prothrombin Time Result Value Ref Range PT 14.0 12.0 - 15.0 sec INR 1.1 0.9 - 1.1 Hemogram Result Value Ref Range WBC 12.0 (H) 4.0 - 9.5 x10(3)/mcL RBC 5.47 4.58 - 5.54 x10(6)/mcL Hemoglobin 15.6 13.7 - 16.5 gm/dL Hematocrit 48.5 40.5 - 48.5 % MCV 88.7 82.9 - 93.1 fL MCH 28.5 27.5 - 32.1 pg MCHC 32.2 32.0 - 35.7 gm/dL Platelets 219 145 - 357 x10(3)/mcL RDWSD 45.3 (H) 36.0 - 45.0 fL RDWCV 14.1 (H) 11.4 - 13.8 % MPV 10.2 7.6 - 12.9 fL nRBC % Auto 0.0 % nRBC Abs Auto 0.000 0.000 - 0.000 x10(3)/mcL Differential, Automated Result Value Ref Range Neutrophils % 68.0 % Neutr Abs (ANC) 8.20 (H) 1.70 - 6.10 x10(3)/mcL Lymphocytes % 18.2 % Lymphocytes Abs 2.2 0.9 - 3.2 x10(3)/mcL Monocytes % 9.8 % Monocyte Abs 1.2 (H) 0.3 - 0.9 x10(3)/mcL Eosinophils % 2.9 % Eosinophils Abs 0.4 0.0 - 0.4 x10(3)/mcL Basophils % 0.7 % Basophils Abs 0.1 0.0 - 0.1 x10(3)/mcL Immature Gran % 0.40 % Anna Gran Abs 0.05 (H) 0.00 - 0.04 x10(3)/mcL Pertinent Radiographic/Diagnostic Results: No new tests Discharge Medication Checklist: Aspirin Yes Clopidogrel/prasugrel Yes [place] inhibitor/or ARB Yes Beta Onesimo Yes Lipid Lowering Yes Nitroglycerin Yes Assessment: Lalo Guerra is a 70 y.o. male s/p PCI ost RCA for progressive limiting angina Plan: 1. Home today 2. Meds, diet, activity discussed 3. DAPT regimen outlined in patient instructions. 4. Follow-up with Dr. Real 1 month. RAJ AVILA MD 10/25/2015 Diana Prescott RN - 10/24/2015 6:14 PM EDT 1800 patient telemetry alarms intermittently V-TACH, PVC's. Saved strips do not indicate V-Tach. vss(see DOC), patient asymptomatic, no SOB, DUVALL, CP. After dinner patient developed anxiety some r/t frequent alarms. Dr. Luis aware. Diana Prescott RN - 10/24/2015 4:20 PM EDT 1550 Report taken from Michell CRAWFORD in skill labor Pt arrived at 1620 Via[address] Ambulated from stretcher to bed SBA, Patient is neurologically intact, A&Ox4, vss. Lung sounds clear, Patient is on RA, no SOB, DUVALL, CP 5/5 strengths all extremities.No numbness or tingling Radial and dorsalis pulses normal Bowel sounds active x4,soft non tender. To ambulate: patient is SBA Bathroom: urinal, bathroom Skin: RT wrist, intact, no drainage, Drsg on : C/D/I. otherwise skin intact. No S/S of PU, or breakdown. Pain: 0/10 Patient belongs with Patient family. Home medications (inhalers) picked up by pharmacy. Oriented to room, staff, use of call light. Patient verbalized/demonstrated understanding. Plan of care, treatments, goals, tests, services written on white board and discussed with patient/family for discharge readiness. documented in this encounter H&P Notes Raj Avila MD - 10/24/2015 1:00 PM EDT Lalo Guerra [id number] 10/24/2015 70 y.o. Admission History and Physical PCP: JEFF OLIVERA MD Referring: Farhan Date of Referral: I performed a history and physical exam of the patient and discussed the management of this patient with Dr. LUIS. Admission Diagnosis: progressive angina Date of Evaluation: 10/24/2015 Date of Admission: 10/24/2015 Problem List: Active Hospital Problems Diagnosis ??? Sick sinus syndrome ??? ASCVD (arteriosclerotic cardiovascular disease) Progressive CCS [...] Presence of permanent cardiac pacemaker Jul 2012 Resolved Hospital Problems Diagnosis Date Resolved No resolved problems to display. There are no active non-hospital problems to display for this patient. HPI: This 70 y.o. male is admitted with a chief complaint of progressvie angina and a positive MIBI ETT. I have reviewed the available records, interviewed and examined the patient. This patient is admitted post PCI for IV hydration, pain management, access site management in the setting of anticoagulation, serial cardiac biomarker monitoring, telemetry monitoring, evaluation of their medical condition, and cardiac rehabilitation. ROS/PMHx/Fam Hx/Soc Hx: Reviewed, see outpatient note. Physical Exam: Vital signs: BP 142/80 Pulse 59 Temp 36.7 ??C (98.1 ??F) Resp 28 Ht 170.2 cm (5' 7) Wt (!) 110.6 kg(243 lb 12.8 oz) SpO2 95% BMI 38.18 kg/m2 Physical Exam Chest clear Cor nl Access site stable Telemetry: paced Lab (Last 24 Hours): Recent Results (from the past 24 hour(s)) Prothrombin Time Result Value Ref Range PT 13.7 12.0 - 15.0 sec INR 1.0 0.9 - 1.1 I have independently visualized the following studies: ECG:pending Assessment: 1. Angina, s/p PCI of osteal RCA 2. A fib, on warfarin Plan: 1. The working diagnosis and plan of management was reviewed with the patient, available family, andthe house staff. 2. Questions were addressed. 3. Admit for IV hydration, serial cardiac enzymes, access site management, cardiac rehabilitation, asa and clopidogrel per protocol. 4. Restart Warfarin tomorrow 5. DAPT recommendations: ASA 81 mg daily x 1 monthe with clopidogrel 75 mg daily and waerfarin to !NR 2.0. Stop the aspirin 1 month post PCI and continue clopidogrel 75 mg daily and warfarin for 6 months. At 6 months post PCI, stop the clopidogrel and restart aspirin 81 mg daily. 6. Probable discharge in AM. The majority of my unit/floor time was spent counseling, and coordinating care for the patient regarding the diagnosis, diagnostic and therapeutic treatment plan. RAJ AIVLA MD 10/24/2015 Neisha Luis MD - 10/24/2015 8:45 AM EDT Lalo Guerra is a 70 y.o. male referred for cardiac catheterization by Dr Xavier Real for evaluation of chest pain and abnormal cardiac stress test. For complaints of intermittent exertional chest pain and shortness of breath, Mr Guerra underwent a dobutamine sestamibi cardiac stress test on 10/05/2015, which revealed a small reversible area of ischemia in the inferior and inferioseptal segments, with no fixed defects and ECG negative for ischemia.Gated images revealed an LVEF of 65%. Given his symptoms and the abnormal stress test results he wasreferred for coronary angiogram for further evaluation. Mr Charlie also has a PMH notable for atrial fibrillation, on chronic anticoagulation with coumadin, sick sinus syndrome s/p PPM 07/2012, HTN, dyslipidemia, obesity, Hx of TIA s/p left carotid endartectomy in 1991, hypothyroidism, and ex-tobacco use having quit in 1992. He is not a diabetic and his FHxis not significant for CAD (father had CVA and in his 70s). He denies any Hx of significant bleeds, and has no planned upcoming procedures. He does have an allergy listed to lipitor for myositis, but he himself is unsure, as on his current pravastatin he does note tolerable muscle aches as well, and questions whether this is due to an alternate etiology. There have not been any changes in health status since last seen in clinic by Dr Real on 10/16/2015. No fevers, no chills, no bleeding. Outpatient Prescriptions Marked as Taking for the 10/24/15 encounter (Hospital Encounter) Medication Sig Dispense Refill ??? gemfibrozil (LOPID) 600 mg Tablet Take 600 mg by mouth 2 times daily (before meals). ??? levothyroxine (SYNTHROID) 100 mcg Tablet Take 100 mcg by mouth daily. ??? pravastatin (PRAVACHOL) 80 mg Tablet Take 80 mg by mouth daily. ??? aclidinium bromide 400 mcg/actuation Aerosol Powdr Breath Activated Inhale into the lungs. ??? Mometasone-Formoterol (DULERA) 100-5 mcg/actuation HFA Aerosol Inhaler Inhale into the lungs. ??? warfarin (COUMADIN) 1 mg Tablet Take 1 mg by mouth daily. ??? DILTiazem (CARDIZEM CD) 240 mg Capsule, Sust. Release 24 hr Take 240 mg by mouth daily. ??? nitroGLYcerin (NITROSTAT) 0.4 mg Tablet, Sublingual Place 0.4 mg under the tongue every 5 minutes as needed for Chest pain. ??? meTOPROLOL tartrate (LOPRESSOR) 25 mg Tablet Take 25 mg by mouth 2 times daily. BP 128/69 Pulse 56 Temp 36.7 ??C (98.1 ??F) Resp 16 Ht 170.2 cm (5' 7) Wt (!) 110.6 kg (243 lb 12.8oz) SpO2 98% BMI 38.18 kg/m2 PE NAD CV: RRR, S1 S2 physiologic, I-II/ systolic murmur heard across the precordium, JVP estimated 8 cm H2O Pulm: CTAB, no w/r/r Abd: soft, NT, ND, +BS, no bruits (abdominal girth may affect auscultation findings) Vasc: 2+ bilat radial with favorable Washington's test on the R, 1+ bilat femoral pulses w/o bruits, 1+ bilat DP pulses Extr: wwp, +1 b/l distal lower extremity edema Labs reviewed and notable for: 10/16/15: HGB 14.2, HCT 43.1, PLT 200, K 4.1, BUN 26, Cr 1.02, GFR >60 Lab Results Component Value Date INR 1.0 10/24/2015 A/P 70 y.o. male here for cardiac catheterization. - proceed as planned - consent signed - no obvious CI to DAPT - FULL code Neisha Luis MD Interventional [facility] documented in this encounter Miscellaneous Notes Plan of Care - Lyndsay Obando RN - 10/25/2015 10:36 AM EDT Problem: General Plan of Care Goal: Plan of Care Review Outcome: Outcome (s) achieved Date Met: 10/25/15 10/25/15 1032 Plan of Care Review Plan of Care Outcome Status outcome achieved Progress improving Coping/Psychosocial Response Interventions Plan of Care Reviewed with patient OUTCOME EVALUATION NOTE: OUTCOME SUMMARY: Pt is alert and oriented x 4, ambulatory, denies chest pain or dyspnea, right radial site clean and intact, able to tolerate heart healthy diet, voiding in BR. AVS provided and reviewed, all questions answered. PLAN MOVING FORWARD: Discharge to home INDIVIDUALIZED FALL PREVENTION INTERVENTIONS: Patient-specific fall risk factors per assessment: [current deficits]: none Assistance [level of assistance required for transfers and ambulation]: independent Supervision [direct monitoring required during toileting and ADLs]: none Surveillance [continuous indirect monitoring]: none Patient-specific fall prevention interventions for sensory deficits provided, if applicable: no CPG GOAL OUTCOME EVALUATION: Goal: Individualization and Mutuality Outcome: Outcome (s) achieved Date Met: 10/25/15 10/25/15 1032 Individualization Patient Specific Goals discharge to home Patient Specific Interventions telemetry, cardiac walk, cardiac rehab, consult Goal: Fall Prevention-Safe Patient Handling Outcome: Outcome (s) achieved Date Met: 10/25/15 10/24/15214310/25/15 0500 10/25/15 0552 Safety Interventions Safety Precautions/Fall Reduction environmental modification;fall reduction program maintained;lighting adjusted for task/safety;low bed;nonskid shoes/slippers when out of bed;room near unit station ---- Musculoskeletal Interventions Activity/Level of Assistance -- -- up in vivas;with stand by assist Self-Care Promotion -- independence encouraged while providing assistance -- Stack Fall Risk History of Falling 0 -- -- Secondary Diagnosis 15 -- -- Ambulatory Aids 0 -- -- Intravenous Therapy/Heparin/Saline Lock 20 -- -- Gait/Transferring 0 -- -- Mental Status 0 -- -- Score 35 -- -- Activity and Safety Assistive Device -- -- None OTHER Stack Fall Risk Med -- -- Goal: Infection Control Outcome: Outcome (s) achieved Date Met: 10/25/15 10/24/15214310/25/15 050 Safety Interventions Isolation Precautions -- standard precautions maintained Infection Prevention rest/sleep promoted;promote handwashing;nutrition promoted;hydration promoted;environmental surveillance;bronchial hygiene promoted -- Coping/Psychosocial Response Interventions Counseling goal setting facilitated -- Goal: Discharge Needs Assessment Outcome: Outcome (s) achieved Date Met: 10/25/15 10/25/15 050 Discharge Needs Assessment Concerns to be Addressed no discharge needs identified Readmission Within the Last 30 Days no previous admission in last 30 days Equipment Needed After Discharge none Current Health Anticipated Changes Related to Illness none Self-Care Equipment Currently Used at Home none Living Environment Transportation Available family or friend will provide Consult Note - Krista Godoy RN - 10/25/2015 9:29 AM EDT Lalo Guerra was seen today by Cardiac Rehabilitation for: SD/PCI (x ) Educational packet regarding CAD, cardiac risk factors, and managing angina given to patient. Heart diagram reviewed. Patient is a ketan. He has noticed increasing anginal sx w/minimal activity. Given parameters for home exercise. Reviewed managing angina /use of sl nitroglycerin. (x ) Participation to the outpatient cardiac rehabilitation program at [facility] was discussed. Patient agrees to a referral to this program. The referral will be sent at discharge and the patient should be contacted by the Program within 1- 2 weeks from discharge. Plan of Care - Sidra Lindo RN - 10/25/2015 5:05 AM EDT Problem: General Plan of Care Goal: Plan of Care Review 10/25/15 0500 Plan of Care Review Plan of Care Outcome Status ongoing (interventions implemented as appropriate) Progress improving Coping/Psychosocial Response Interventions Plan of Care Reviewed with patient OUTCOME EVALUATION NOTE: OUTCOME SUMMARY: Patient denies chest pain/pressure or SOB. Right radial site is CD&I with no evidence of hematoma. Pulses palpable. Pt denies numbness/tingling. BLE 1+ edema from ankles to mid calf. Pt states thisis his baseline. Telemetry showing paced rhythm. VSS. Pt is ambulating, eating/drinking, and voidingwithout difficulty. Labs drawn/sent. PLAN MOVING FORWARD: EKG, cardiac walk, cardiac rehab consult INDIVIDUALIZED FALL PREVENTION INTERVENTIONS: Patient-specific fall risk factors per assessment: [current deficits]: Post-op Assistance [level of assistance required for transfers and ambulation]: Stand by assist Supervision [direct monitoring required during toileting and ADLs]: Minimal assistance with ADLs Surveillance [continuous indirect monitoring]: q2 hour rounding; pulse oximetry; call hernandez in reach;bed alarm on Patient-specific fall prevention interventions for sensory deficits provided, if applicable: CPG GOAL OUTCOME EVALUATION: Goal: Individualization and Mutuality 10/24/15 2200 Mutuality/Individual Preferences What anxieties, fears or concerns do you have about your health or care? none What questions do you have about your health or care? none What information would help us give you more personalized care? none Goal: Fall Prevention-Safe Patient Handling 10/24/15 1557 10/24/15214310/25/15499 Safety Interventions Safety Precautions/Fall Reduction -- environmental modification;fall reduction program maintained;lighting adjusted for task/safety;low bed;nonskid shoes/slippers when out of bed;room near unit station-- Musculoskeletal Interventions Activity/Level of Assistance with stand by assist -- -- Self-Care Promotion -- -- independence encouraged while providing assistance Stack Fall Risk History of Falling -- 0 -- Secondary Diagnosis -- 15 -- Ambulatory Aids -- 0 -- Intravenous Therapy/Heparin/Saline Lock -- 20 -- Gait/Transferring -- 0 -- Mental Status -- 0 -- Score -- 35 -- OTHER Stack Fall Risk -- Med -- Goal: Infection Control 10/24/15214310/25/15499 Safety Interventions Isolation Precautions -- standard precautions maintained Infection Prevention rest/sleep promoted;promote handwashing;nutrition promoted;hydration promoted;environmental surveillance;bronchial hygiene promoted -- Coping/Psychosocial Response Interventions Counseling goal setting facilitated -- Goal: Discharge Needs Assessment 10/25/15499 Discharge Needs Assessment Concerns to be Addressed no discharge needs identified Readmission Within the Last 30 Days no previous admission in last 30 days Equipment Needed After Discharge none Current Health Anticipated Changes Related to Illness none Self-Care Equipment Currently Used at Home none Living Environment Transportation Available family or friend will provide documented in this encounter Plan of Treatment Upcoming Encounters Date Type Specialty Care Team Description 11/05/2021 Appointment Radiology 11/05/2021 Office Visit Cardiac Surgery Abdon Dawson MD [facility] [place], [place] [address] (Wo rk) documented as of this encounter Procedures Procedure Name Priority Date/Time Associated Diagnosis Comme nts EKG 12-LEAD Routine 10/25/2015 7:07 ASCVD Results for this AM EDT (arteriosclerotic procedure are in cardiovascular the results disease) section. BMP W/FASTING Routine 10/25/2015 3:40 Results for this GLUCOSE AM EDT procedure are i n the results section. HEMOGRAM Routine 10/25/2015 3:40 Results for this AM EDT procedure are i n the results section. DIFFERENTIAL, Routine 10/25/2015 3:40 Results for this AUTOMATED AM EDT procedure are i n the results section. CARDIAC ENZYMES Routine 10/25/2015 3:40 Results f or this ([facility]/P) AM EDT procedure are i n the results section. PROTHROMBIN TIME Routine 10/25/2015 3:40 Results for this AM EDT procedure are i n the results section. CBC (WITH DIFF) Routine 10/25/2015 3:40 AM EDT MANAGER MENTAL HEALTH SCAN 10/25/2015 12:00 AM EDT ECG SCAN 10/25/2015 12:00 AM EDT EKG 12-LEAD Routine 10/24/2015 1:22 ASCVD Results for this PM EDT (arteriosclerotic procedure are in cardiovascular the results disease) section. EKG 12-LEAD Routine 10/24/2015 8:50 ASCVD Results for this AM EDT (arteriosclerotic procedure are in cardiovascular the results disease) section. PROTHROMBIN TIME STAT 10/24/2015 8:09 ASCVD Results for this AM EDT (arteriosclerotic procedure are in cardiovascular the results disease) section. documented in this encounter Results EKG 12 Lead (10/25/2015 7:07 AM EDT) Component Value Ref Range Test Analysis Performed Pathologis t Method Time At Signature Ventricular rate 70 BPM MUSE SYSTEM Atrial Rate 75 BPM MUSE SYSTEM QRS Duration 140 ms MUSE SYSTEM Q-T Interval 454 ms MUSE SYSTEM QTC Calculated 490 ms MUSE SYSTEM (Bezet) Calculated R [place] 112 degrees MUSE SYSTEM Calculated T [place] -66 degrees MUSE SYSTEM INTERPRETATION Demand pacemaker; interpretation is based on intrinsic rhythm MUSE SYSTEM Atrial fibrillation with pre mature ventricular or aberrantly conducted complexes Right bundle branch block T wave abnormality, consider inferolateral ischemia or digit becca effect Abnormal ECG When compared with ECG of 24-OCT-2015 13:22, No significant change was found Confirmed by MD Maritza, Chalino ([id number]) on 10/25/2015 9:06:23 AM Specimen Anatomical Collection Method Collection Time Receive d Time (Source) Location / / Volume Laterality 10/25/2015 7:07 AM 6 9:06 EDT AM EDT Raj Avila MD ECG ORDERABLES Performing Organization Address City/State/ZIP Code Phon e Number MUSE SYSTEM (ABNORMAL) Differential, Automated (10/25/2015 3:40 AM EDT) Patholo gist Method Time Signature Neutrophils % 68.0 % [facility] Neutr Abs (ANC) 8.20 (H) 1.70 - [facility] 6.10 [facility] x10(3)/[facility] LABORATORY Lymphocytes % 18.2 % [facility] Lymphocytes Abs 2.2 0.9 - 3.2 [facility] x10(3)/[facility] LABORATORY Monocytes % 9.8 % [facility] Monocyte Abs 1.2 (H) 0.3 - 0.9 [facility] x10(3)/[facility] LABORATORY Eosinophils % 2.9 % [facility] Eosinophils Abs 0.4 0.0 - 0.4 [facility] x10(3)/[facility] LABORATORY Basophils % 0.7 % [facility] Basophils Abs 0.1 0.0 - 0.1 [facility] x10(3)/[facility] LABORATORY Immature Gran % 0.40 % [facility] Comment: Immature granulocytes(IG's)percentage an d absolute count will include metamyelocytes, myelocytes, and promyelo cytes. Blood smears from CBCs yielding IG's will be scanned manually for concor dance. If this scan disagrees with the automated IG or if promyelocytes are not ed, a manual differential will be performed. Anna Gran Abs 0.05 (H) 0.00 - 0.04 x10(3)/[facility] LABORATORY Specimen Anatomical Collection Method Collection Time Receive d Time (Source) Location / / Volume Laterality Blood specimen 10/25/2015 3:40 AM 016 3:53 (specimen) EDT AM EDT Resulting Agency Comment Spec In Lab Raj Avila MD HEMATOLOGY ORDERABLES Performing Organization Address City/State/[place] [address] (ABNORMAL) Hemogram (10/25/2015 3:40 AM EDT) Analysis Performed At [facility] logist Time Signature WBC 12.0 (H) 4.0 - 9.5 [facility] x10(3)/[facility] LABORATORY RBC 5.47 4.58 - MAIRA AUDREY 5.54 [facility] x10(6)/[facility] LABORATORY Hemoglobin 15.6 13.7 - MAIRA SANFORDAUDREY 16.5 gm/dL [facility]ORY Hematocrit 48.5 40.5 - MAIRA VENTURA 48.5 % [facility] MCV 88.7 82.9 - [facility] LAB[facility] MCH 28.5 27.5 - MAIRA ESTEVEZCK 32.1 pg [facility] MCHC 32.2 32.0 - MAIRA AUDREY 35.7 gm/dL [facility] Platelets 219 145 - 357 [facility] x10(3)/[facility] RDWSD 45.3 (H) 36.0 - [facility] [address] [facility] RDWCV 14.1 (H) 11.4 - [facility] 13.8 % [facility] MPV 10.2 7.6 - 12.9 [facility] LABORATORY nRBC % Auto 0.0 % [facility] nRBC Abs Auto 0.000 0.000 - [facility] x10(3)/[facility] LABORATORY Specimen Anatomical Collection Method Collection Time Receive d Time (Source) Location / / Volume Laterality Blood specimen 10/25/2015 3:40 AM 016 3:53 (specimen) EDT AM EDT Resulting Agency Comment Spec In Lab Raj Avila MD HEMATOLOGY ORDERABLES Performing Organization Address City/State/[place] [address] Prothrombin Time (10/25/2015 3:40 AM EDT) P athologist Signature PT 14.0 12.0 - 15.0 [facility] LABORATORY Comment: An INR <2.0 indicates adequate [...] be appropriate depending on c linical circumstances. INR 1.1 0.9 - 1.1 [facility] Specimen Anatomical Collection Method Collection Time Receive d Time (Source) Location / / Volume Laterality Blood specimen 10/25/2015 3:40 AM 016 3:53 (specimen) EDT AM EDT Resulting Agency Comment Spec In Lab Raj Avila MD HEMATOLOGY ORDERABLES Performing Organization Address City/State/[place] [address] (ABNORMAL) BMP w/fasting Glucose (10/25/2015 3:40 AM EDT) athologist Signature Glucose 119 (H) 65 - 99 [facility] Fasting mg/dL [facility] Comment: ?Fasting* Glucose Interpretive C [...] of Diabetes Mellitus, Position Statement from the [place] [employer]. ??Diabete s Care, Volume 33, Supplement 1, Feb 2009 BUN 15 10 - 20 mg/dL [facility] Creatinine 0.99 0.80 - 1.50 mg/dL [facility] Comment: Please note that the pediatric reference intervals supplied above were not validated at [facility]. Results from pediatri c patients should be interpreted in conjunction to the patient's age, height and muscle mass. Sodium 141 135 - 145 mmol/L [facility] Potassium 4.4 3.5 - 5.0 mmol/L [facility] Comment: Please note: ??Patients with WBC >100,00 0 may have falsely elevated Potassium levels. ??For accurate Potassium quantif ication in these patients send serum separator tube (gold top) for subsequent determinations. ??Contact the Clinical Chemistry Laboratory if there are any qu estions. Chloride 101 98 - 107 mmol/L [facility] CO2 24 22 - 31 mmol/L [facility] Anion Gap 16 (H) 5 - 15 mmol/L [facility] Calcium 9.1 8.5 - 10.5 mg/dL [facility] Estimated GFR >60 >=60 [facility] Comment: This estimated GFR (eGFR) value was calc ulated using the MDRD equation which has been validated on patients between t he ages of 18 and 70. The MDRD should not be used to assess kidney function in patients < 18 years of age or in patients with extremes of body mass, or in patients with acute kidney failure. This value should be multiplied by 1.2 f or patients. For further information please copy and past e the following links into your internet browser. http://[employer]/DHnkdep http://[employer]/DHMCnkf Specimen Anatomical Collection Method Collection Time Receive d Time (Source) Location / / Volume Laterality Blood specimen 10/25/2015 3:40 AM 016 3:53 (specimen) EDT AM EDT Resulting Agency Comment Spec In Lab Raj Avila MD CHEMISTRY ORDERABLES Performing Organization Address City/State/[place] [address] Cardiac Enzymes (10/25/2015 3:40 AM EDT) P athologist Signature Troponin-T <0.03 <=0.03 [facility] ng/mL [facility] Comment: 0.03 ng/mL: Represents the 99th percenti le upper reference limit for normals. >0.03 ng/mL: Elevated cardiac troponin T level indicative of myocardial damage. Diagnosis of acute, evolving or recent M I requires a typical rise and gradual fall of cTnT with at least ONE of the fo llowing: a) Ischemic symptoms b) Development of pathologic Q waves on the ECG c) ECG changes indicative of eschemia (S -T segment elevation/depression) d) Coronary artery intervention Serial bloods should be obtained for niraj ting on admission, at 6 to 9 hrs and again at 12 to 24 hrs if earlier samples are negative and the clinical index of suspicion is high. Reference: [Myocardial infarction redefined? a consensus document of the Joint Society of Cardiology/[place] [employer] o f [employer] Committee for the redefinition of myocardial infarction. ? ?Journal of the [place] [employer] 2000; 36: 959-969] CK, Total 82 0 - 200 unit/L [facility] Specimen Anatomical Collection Method Collection Time Receive d Time (Source) Location / / Volume Laterality Blood specimen 10/25/2015 3:40 AM 016 3:53 (specimen) EDT AM EDT Resulting Agency Comment Spec In Lab Raj Avila MD CHEMISTRY ORDERABLES Performing Organization Address City/State/[facility] [place] [address] SCAN DOC: MANAGER MENTAL HEALTH (10/25/2015 12:00 AM EDT) Narrative This result has an attachment that is no t available. Scanning Provider MEDIA MGR SCAN EXT ORDR/RSLT SCAN DOC: ECG (10/25/2015 12:00 AM EDT) Narrative This result has an attachment that is no t available. Scanning Provider MEDIA MGR SCAN EXT ORDR/RSLT EKG 12 Lead (10/24/2015 1:22 PM EDT) Component Value Ref Range Test Analysis Performed Pathologis t Method Time At Signature Ventricular rate 60 BPM MUSE SYSTEM Atrial Rate 60 BPM MUSE SYSTEM QRS Duration 152 ms MUSE SYSTEM Q-T Interval 502 ms MUSE SYSTEM QTC Calculated 502 ms MUSE SYSTEM (Bezet) Calculated R [place] -77 degrees MUSE SYSTEM Calculated T [place] 73 degrees MUSE SYSTEM INTERPRETATION Electronic ventricular pacemaker MUSE SYSTEM When compared with ECG of 24-OCT-2015 08:50, Vent. rate has decreased BY ?? 9 BPM Confirmed by Robel CONTE MD, Nathaniel ([id number]) on 10/24/2015 4:30: 34 PM Specimen Anatomical Collection Method Collection Time Receive d Time (Source) Location / / Volume Laterality 10/24/2015 1:22 PM 6 4:30 EDT PM EDT Raj Avila MD ECG ORDERABLES Performing Organization Address City/State/[facility] Code Phon e Number MUSE SYSTEM EKG 12 Lead (10/24/2015 8:50 AM EDT) Component Value Ref Range Test Analysis Performed Pathologis t Method Time At Signature Ventricular rate 69 BPM MUSE SYSTEM Atrial Rate 69 BPM MUSE SYSTEM P-R Interval 104 ms MUSE SYSTEM QRS Duration 154 ms MUSE SYSTEM Q-T Interval 444 ms MUSE SYSTEM QTC Calculated 475 ms MUSE SYSTEM (Bezet) Calculated P [place] -51 degrees MUSE SYSTEM Calculated R [place] -68 degrees MUSE SYSTEM Calculated T [place] 87 degrees MUSE SYSTEM INTERPRETATION Electronic ventricular pacemaker MUSE SYSTEM When compared with ECG of 04-OCT-1991 16:41, Electronic ventricular pacemaker has replaced Sinus rhythm Confirmed by Robel CONTE MD, Jesu ([id number]) on 10/24/2015 9:49: 24 AM Specimen Anatomical Collection Method Collection Time Receive d Time (Source) Location / / Volume Laterality 10/24/2015 8:50 AM 6 9:49 EDT AM EDT Raj Avila MD ECG ORDERABLES Performing Organization Address [facility] Phon e Number MUSE SYSTEM Prothrombin Time (10/24/2015 8:09 AM EDT) P athologist Signature PT 13.7 12.0 - 15.0 [facility] LABORATORY Comment: An INR <2.0 indicates adequate [...] be appropriate depending on c linical circumstances. INR 1.0 0.9 - 1.1 [facility] Specimen Anatomical Collection Method Collection Time Receive d Time (Source) Location / / Volume Laterality Blood specimen 10/24/2015 8:09 AM 016 8:16 (specimen) EDT AM EDT Resulting Agency Comment Spec In Lab Raj Avila MD HEMATOLOGY ORDERABLES Performing Organization Address City/[facility]/ZIP [facility] [place] [place] [address] documented in this encounter Visit Diagnoses Diagnosis ASCVD (arteriosclerotic cardiovascular d isease) - Primary Unspecified cardiovascular disease PAF (paroxysmal atrial fibrillation) Atrial fibrillation Essential hypertension Unspecified essential hypertension Hyperlipidemia Other and unspecified hyperlipidemia Hypothyroidism Unspecified hypothyroidism Presence of permanent cardiac pacemaker Cardiac pacemaker in situ Sick sinus syndrome Sinoatrial node dysfunction ASCVD (arteriosclerotic cardiovascular d isease) Unspecified cardiovascular disease documented in this encounter Administered Medications Inactive Administered Medications - up to 3 most recent administrations Medication Order MAR Action Action Date Dose Rate Site aclidinium bromide AePB 1 puff Given 10/25/2015 8:17 AM EDT 1 puff 1 puff, Inhalation, 2 TIMES DAILY, First dose on Thu10/24/15 at 2100, Until Discontinued Given 10/24/2015 8:49 PM EDT 1 puff ALPRAZolam (XANAX) tablet 0.25 mg 0.25 mg, Oral, NIGHTLY PRN, 1 dose, Starting on Thu at 1836, Until Izabel 10/25/15 at 1237, Anxiety, Routine AMIOdarone (CORDARONE) injection Given 10/24/2015 12:22 PM EDT 150 mg Left Arm ONCE PRN, Starting on Thu10/24/15 at 1222, Until Thu10/24/15 at 1253, Intra-Operative (Intra-Procedure), Routine aspirin chewable tablet Given 10/24/2015 11:06 AM EDT 648 mg ONCE PRN, Starting on Thu10/24/15 at 1106, Until Thu10/24/15 at 1253, Cath (Intra-Procedure), Routine aspirin EC tablet 81 mg Given 10/25/2015 8:18 AM EDT 81 mg 81 mg, Oral, DAILY, First dose on Izabel 10/25/15 at 0900, Until Discontinued, Recovery (Recovery-Hospital Unit), Routine clopidogrel (PLAVIX) tablet 300 mg Given 10/24/2015 8:48 PM EDT 300 mg 300 mg, Oral, ONCE, 1 dose, On Thu10/24/15 at 2100, Routine clopidogrel (PLAVIX) tablet 75 mg Given 10/25/2015 8:18 AM EDT 75 mg 75 mg, Oral, DAILY, First dose on Izabel 10/25/15 at 0900, Until Discontinued, Recovery (Recovery-Hospital Unit), Routine DILTiazem (DILTIAZEM CD) ER capsule 240 mg Given 10/25/2015 8:18 AM EDT 240 mg 240 mg, Oral, DAILY, First dose on Thu10/25/15 at 0900, Until Discontinued, DO NOT CRUSH OR OPEN, Routine fentaNYL 50 mcg/mL multi-dose injection Given 10/24/2015 12:09 PM EDT 25 mcg ONCE PRN, Starting on Thu10/24/15 at 1106, Until Thu10/24/15 at 1253, Cath (Intra-Procedure), Routine Given 10/24/2015 11:06 AM EDT 25 mcg gemfibrozil (LOPID) tablet 600 mg Given 10/25/2015 6:51 AM EDT 600 mg 600 mg, Oral, 2 TIMES DAILY BEFORE MEALS, First dose on Thu10/24/15 at 1800, Until Discontinued, Routine Given 10/24/2015 5:47 PM EDT 600 mg heparin (porcine) injection Given 10/24/2015 11:51 AM EDT 4,000 Units ONCE PRN, Starting on Thu10/24/15 at 1125, Until Thu10/24/15 at 1253, Cath (Intra-Procedure), Routine Given 10/24/2015 11:25 AM EDT 5,000 Units iohexol (OMNIPAQUE) 350 mg/mL solution Given 10/24/2015 12:51 PM EDT 328 mLs ONCE PRN, Starting on Thu10/24/15 at 1251, Until Thu10/24/15 at 1253, Cath (Intra-Procedure), Routine levothyroxine (SYNTHROID) tablet 100 mcg Given 10/25/2015 6:51 AM EDT 100 mcg 100 mcg, Oral, EVERY MORNING, First dose on Thu10/25/15 at 0600, Until Discontinued, Routine lidocaine (XYLOCAINE) 10 mg/mL (1 %) Given 10/24/2015 11:10 AM E DT 10 mLs injection ONCE PRN, Starting on Thu10/24/15 at 1110, Until Thu10/24/15 at 1253, Cath (Intra-Procedure), Routine meTOPROLOL tartrate (LOPRESSOR) tablet 2 5 mg Given 10/25/2015 8:19 AM EDT 25 mg 25 mg, Oral, 2 TIMES DAILY, First dose on Thu10/24/15 at 2100, Until Discontinued, Routine Given 10/24/2015 8:49 PM EDT 25 mg midazolam (PF) (VERSED) 1 mg/mL multi-dose Given 10/24/2015 12:0 9 PM EDT 1 mg injection ONCE PRN, Starting on Thu10/24/15 at 1106, Until Thu10/24/15 at 1253, Cath (Intra-Procedure), Routine Given 10/24/2015 11:06 AM EDT 1 mg Mometasone-Formoterol 200-5 mcg/actuation Given 10/25/2015 8:19 AM EDT 2 puffs HFAA 2 puff 2 puff, Inhalation, 2 TIMES DAILY, First dose on Thu10/24/15 at 2100, Until Discontinued Given 10/24/2015 8:49 PM EDT 2 puffs nitroGLYcerin 100 mcg/mL intracoronary Given 10/24/2015 12:26 PM EDT 200 mcg dilution ONCE PRN, Starting on Thu10/24/15 at 1126, Until Thu10/24/15 at 1253, Cath (Intra-Procedure), Routine Given 10/24/2015 11:26 AM EDT 100 mcg sodium chloride 0.9% infusion New Bag 10/24/2015 1:40 PM EDT 100 mL/hr 100 mL/hr 100 mL/hr, Intravenous, CONTINUOUS, Starting on Thu10/24/15 at 1330, Until Thu10/24/15 at 1629, Recovery (Recovery-Hospital Unit) ticagrelor (BRILINTA) tablet Given 10/24/2015 11:51 AM EDT 180 mg ONCE PRN, Starting on Thu10/24/15 at 1151, Until Thu10/24/15 at 1253, Cath (Intra-Procedure), Routine verapamil (ISOPTIN) injection Given 10/24/2015 11:26 AM EDT 2.5 mg ONCE PRN, Starting on Thu10/24/15 at 1126, Until Thu10/24/15 at 1253, Administer over 2 Minutes, Cath (Intra-Procedure) warfarin (COUMADIN) daily order reminder Oral, EVERY 24 HOURS, First dose on Izabel 10/25/15 at 1400, Until Discontinued, If the daily warfarin order has not been placed , contact the Provider to confirm that the order will be written, the dose is held or discontinue d. warfarin (COUMADIN) tablet 1 mg 1 mg, Oral, EVERY EVENING, First dose (a fter last modification) on Izabel 10/25/15 at 1700, Until Discontinued, Routine documented in this encounter Active and Recently Administered Medications Times are shown in EDT. Scheduled Medication Order 10/23/2015 10/24/2015 10/25/2015 aclidinium bromide AePB 1 puff 2048 (Given - Pro vider: Sidra Lindo RN) 08 (Given - Provider: Lyndsay Obando RN) 1 puff, Inhalation, 2 TIMES DAILY, First dose on Thu10/24/15 at 2100 aspirin EC tablet 81 mg 817 (Gi milagros - Provider: Lyndsay Obando RN) 81 mg, Oral, DAILY, First dose on Thu at 0900, Until Discontinued, Recovery (Recovery-Hospital Unit), Routine clopidogrel (PLAVIX) tablet 300 mg (COMPLETED) 2047 (Given - Provider: Sidra Lindo RN) 300 mg, Oral, ONCE, 1 dose, Thu10/24/15 at 2100, Routine clopidogrel (PLAVIX) tablet 75 mg 817 (Given - Provider: Lyndsay Obando RN) 75 mg, Oral, DAILY, First dose on Thu at 0900, Until Discontinued, Recovery (Recovery-Hospital Unit), Routine DILTiazem (DILTIAZEM CD) ER capsule 240 mg 817 (Given - Provider: Lyndsay Obando RN) 240 mg, Oral, DAILY, First dose on Thu at 0900, Until Discontinued, DO NOT CRUSH OR OPEN, Routine gemfibrozil (LOPID) tablet 600 mg 1746 (Given - Provider: Diana Prescott RN) 650 (Given - Provider: Sidra Lindo RN) 600 mg, Oral, 2 TIMES DAILY BEFORE MEALS , First dose on Thu10/24/15 at 1800, Until Discontinued, Routine levothyroxine (SYNTHROID) tablet 100 mcg 650 (Given - Provider: Sidra Lindo RN) 100 mcg, Oral, EVERY MORNING, First dose on Thu10/25/15 at 0600, Until Discontinued, Routine meTOPROLOL tartrate (LOPRESSOR) tablet 25 mg 2048 (Given - Provider: Sidra Lindo RN) 08 (Given - Provider: Lyndsay tierney, TY) 25 mg, Oral, 2 TIMES DAILY, First dose o n Thu10/24/15 at 2100, Until Discontinued, Routine Mometasone-Formoterol 200-5 mcg/actuation HFAA 2 puff 2048 (Given - Provider: Sidra Lindo, TY) 0819 (Given - Provider: Lyndsay tierney, TY) 2 puff, Inhalation, 2 TIMES DAILY, First dose on Thu10/24/15 at 2100 pravastatin (PRAVACHOL) tablet 80 mg 80 mg, Oral, EVERY EVENING, First dose o n Thu10/25/15 at 1700, Until Discontinued, Routine warfarin (COUMADIN) daily order reminder Oral, EVERY 24 HOURS, First dose on Thu10/25/15 at 1400, If the daily warfarin order has not been placed, contact the Provider to confirm that the order will be written, the dose is held or discontinued. warfarin (COUMADIN) tablet 1 mg 1 mg, Oral, EVERY EVENING, First dose on Thu10/25/15 at 1700, Until Discontinued, Routine Continuous Medication Order 10/23/2015 10/24/2015 10/25/2015 sodium chloride 0.9% infusion () 1340 (New Bag - Provider: Michell Browne RN - Comment: NS 500 CC Bag hung- no pumps) 100 mL/hr, at 100 mL/hr, Intravenous, CO NTINUOUS, Starting Thu10/24/15 at 1330, Until Thu10/24/15 at 1629, Recovery (Recovery-Hospital Unit) PRN Medication Order 10/23/2015 10/24/2015 10/25/2015 ALPRAZolam (XANAX) tablet 0.25 mg 0.25 mg, Oral, NIGHTLY PRN, 1 dose, Star ting Thu10/24/15 at 1836, Until Izabel 10/25/15 at 1237, Anxiety, Routine AMIOdarone (CORDARONE) injection (CANCELED) 1222 (Given - Provider: Nandini Garcia, TY) ONCE PRN, Starting Thu10/24/15 at 1222, Until Thu10/24/15 at 1253, Intra- Operative (Intra-Procedure), Routine aspirin chewable tablet (CANCELED) 1106 (Given - Provider: Leilani Sparks RN) ONCE PRN, Starting Thu10/24/15 at 1106, Until Thu10/24/15 at 1253, Cath (Intra- Procedure), Routine fentaNYL 50 mcg/mL multi-dose injection (CANCELED) 1106 (Given - Provider: Leilani Sparks RN)1209 (Given - Provider: Leilani Sparks RN) ONCE PRN, Starting Thu10/24/15 at 1106, Until Thu10/24/15 at 1253, Cath (Intra- Procedure), Routine heparin (porcine) injection (CANCELED) 1 125 (Given - Provider: Leilani Sparks RN)1151 (Given - Provider: Leilani Sparks RN) ONCE PRN, Starting Thu10/24/15 at 1125, Until Thu10/24/15 at 1253, Cath (Intra- Procedure), Routine iohexol (OMNIPAQUE) 350 mg/mL solution (CANCELED) 1251 (Given - Provider: Raj Avila MD) ONCE PRN, Starting Thu10/24/15 at 1251, Until Thu10/24/15 at 1253, Cath (Intra- Procedure), Routine lidocaine (XYLOCAINE) 10 mg/mL (1 %) injection (CANCELED) 1110 (Given - Provider: Neisha Luis MD - Comment: right radial) ONCE PRN, Starting Thu10/24/15 at 1110, Until Thu10/24/15 at 1253, Cath (Intra- Procedure), Routine midazolam (PF) (VERSED) 1 mg/mL multi-dose injection (CANCEL ED) 1106 (Given - Provider: Leilani Sparks RN)1209 (Given - Provider: Leilani Sparks RN) ONCE PRN, Starting Thu10/24/15 at 1106, Until Thu10/24/15 at 1253, Cath (Intra- Procedure), Routine nitroGLYcerin (NITROSTAT) SL tablet 0.4 mg 0.4 mg, Sublingual, EVERY 5 MIN PRN, Sta rting Thu10/24/15 at 1307, Until Izabel 10/25/15 at 1237, Chest pain, May repeat every 5 minutes for a total of three doses. Notify provider if chest pain not relieve d with nitroglycerin. Do not administer nitroglycerin if the patinet has received or taken phosphodiesterase (PDE-5) inhibitors such as sildenafil, tadalafil or vardenafil within the last 24 to 72 hours., Recovery (Recovery- Hospital Unit), Routine nitroGLYcerin 100 mcg/mL intracoronary dilution (CANCELED) 1126 (Given - Provider: Neisha Luis MD)1226 (Given - Provider: Raj Avila MD) ONCE PRN, Starting Thu10/24/15 at 1126, Until Thu10/24/15 at 1253, Cath (Intra- Procedure), Routine ticagrelor (BRILINTA) tablet (CANCELED) 1151 (Given - Provider: Leilani Sparks RN) ONCE PRN, Starting Thu10/24/15 at 1151, Until Thu10/24/15 at 1253, Cath (Intra- Procedure), Routine verapamil (ISOPTIN) injection (CANCELED) 1126 (Given - Provider: Neisha Luis MD) ONCE PRN, Starting Thu10/24/15 at 1126, Until Thu10/24/15 at 1253, Administer over 2 Minutes, Cath (Intra-Procedure) documented in this encounter Care Teams Cash Office Worker Relationship Specialty Start Date End Date Jeff Olivera MD PCP - General Family Medicine 10/24/15 09/02/21 documented as of this encounter
--- OUTSIDE RECORDS SUMMARY | 2021-10-25 11:05 | XMS_ITS | Encounter Summary ---
:1945 [place] [address] Care Team Providers Name Role Phone Jeff Olivera MD Primary Care Provider [phone] Reason for Visit Auth/Cert Specialty Diagnoses / Procedures Referred By Contact Refer red To Contact Diagnoses S/P angioplasty with stent ascvd Procedures CARDIAC CATHETERIZATION Referral ID Status Reason Start Date Expiration Date Visits Requ ested Visits Authorized [id number] 1 1 Encounter Details Date Type Department Care Team Description [facility]/25/2015 Encounter Eveline Mcadams MD (arteriosclerotic [facility] cardiovascular [facility] DR disease) [facility] CARDIOLOGY [place], [place] DEPT. [id number] [place], [place] [phone] [facility] Social History Tobacco Use Types Packs/Day Years Used Date Former Smoker Smokeless Tobacco: Former User Q uit: 1970 Comments: quit in 1992 Alcohol Use Standard Drinks/Week Comments No 0 (1 standard drink = 0.6 oz pure alcoho l) Sex Assigned at Date Recorded Not on file documented as of this encounter Last Filed Vital Signs Vital Sign Reading Time Taken Comments Blood Pressure 136/76 10/25/2015 8:01 AM EDT Pulse 71 10/25/2015 8:01 AM EDT Temperature 36.7 ??C (98.1 ??F) 10/25/2015 8:01 AM EDT Respiratory Rate 18 10/25/2015 8:01 AM EDT Oxygen Saturation 97% 10/25/2015 8:01 AM EDT Inhaled Oxygen Concentration - - Weight 110.6 kg (243 lb 12.8 oz) 10/24/2015 8:52 AM EDT Height 170.2 cm (5' 7) 10/24/2015 8:52 AM EDT Body Mass Index 38.18 10/24/2015 8:52 AM EDT documented in this encounter Discharge Summaries Raj Avila MD - 10/25/2015 7:24 AM EDT Discharge Summary Patient Name: Lalo Guerra Patient Age: 70 y.o. Language: Bhutanese Race: White Ethnicity: Not nor Admit date: [...] Inpatient Provider Contact Information: RAJ AVILA MD [phone] Discharge Diagnoses (Hospital Problems) and Secondary Diagnoses [...] appointments: During 8am-5pm Thursday through Thursday call [phone] to speak with a nurse in the cardiology clinic All other times call [phone] and ask to speak to the eligibility examiner ornamental iron worker apprentice. Return to work: 48 hours Driving: No driving for 24 hours after catheterization. Follow up Appointments: PCP Data Modeling Specialist Dr Cristhian Real 1 month Home oxygen therapy: N/A Arrangements for VNA/home care: none General Instructions None Discharge References/Attachments None RAJ AVILA MD documented in this encounter Discharge Instructions Patient InstructionsRaj Avila MD - 10/24/2015 1:00 PM EDT DAPT recommendations: Restart warfarin at previous dose tonight 15 Oct. ASA 81 mg daily x 1 [...] appointments: During 8am-5pm Thursday through Thursday call [phone] to speak with a nurse in the cardiology clinic All other times call [phone] and ask to speak to the eligibility examiner ornamental iron worker apprentice. Return to work: 48 hours Driving: No driving for 24 hours after catheterization. Follow up Appointments: PCP Data Modeling Specialist Dr Cristhian Real 1 month Home oxygen therapy: N/A Arrangements for VNA/home care: none AttachmentsThe following attachments cannot be sent through Care Everywhere.PCI (PERCUTANEOUS CORONARY INTERVENTION) : POST-OP (SAMOAN)documented in this encounter Medications at Time of [...] 1550 Report taken from Michell CRAWFORD in laboratory administrative director Pt arrived at [address] Ambulated from [...] - 10/24/2015 1:00 PM EDT Lalo Guerra [id number] 10/24/2015 70 y.o. Admission History and Physical [...] diagnosis, diagnostic and therapeutic treatment plan. RAJ AVILA MD 10/24/2015 Neisha Luis MD - 10/24/2015 [...] for coronary angiogram for further evaluation. Mr Guerra also has a PMH notable for atrial [...] since last seen in clinic by Dr eRal on 10/16/2015. No fevers, no chills, no [...] - FULL code Neisha Luis MD Interventional Statement Processor documented in this encounter Miscellaneous Notes Plan [...] Outcome: Outcome (s) achieved Date Met: 10/25/15 10/24/15214310/25/1549910/25/15 0552 Safety Interventions Safety Precautions/Fall Reduction environmental [...] RN - 10/25/2015 9:29 AM EDT Lalo R Grammo was seen today by Cardiac Rehabilitation for: SD/PCI (x ) Educational packet regarding CAD, cardiac risk factors, and managing angina given to patient. Heart diagram reviewed. Patient is a ketan. He has noticed increasing anginal sx w/minimal activity. Given parameters for home exercise. Reviewed managing angina /use of sl nitroglycerin. (x ) Participation to the outpatient cardiac rehabilitation program at [place] was discussed. Patient agrees to a referral [...] Goal: Fall Prevention-Safe Patient Handling 10/24/15 1557 10/24/15214310/25/15 0500 Safety Interventions Safety Precautions/Fall Reduction -- environmental [...] Risk -- Med -- Goal: Infection Control 10/24/15214310/25/15 050 Safety Interventions Isolation Precautions -- standard precautions maintained Infection Prevention rest/sleep promoted;promote handwashing;nutrition promoted;hydration promoted;environmental surveillance;bronchial hygiene promoted -- Coping/Psychosocial Response Interventions Counseling goal setting facilitated -- Goal: Discharge Needs Assessment 10/25/15 050 Discharge Needs Assessment Concerns to [...] Office Visit Cardiac Surgery Abdon Dawson MD [facility] [place] [id number] (Wo rk) documented as of this encounter [...] Routine 10/25/2015 3:40 Results f or this ([facility]) AM EDT procedure are i n the results section. PROTHROMBIN TIME Routine 10/25/2015 3:40 Results for this AM EDT procedure are i n the results section. CBC (WITH DIFF) Routine 10/25/2015 3:40 AM EDT AIRPORT DRIVER SCAN 10/25/2015 12:00 AM EDT ECG SCAN [...] 490 ms MUSE SYSTEM (Bezet) Calculated R [place] 112 degrees MUSE SYSTEM Calculated T [place] -66 degrees MUSE SYSTEM INTERPRETATION Demand pacemaker; [...] (ABNORMAL) Differential, Automated (10/25/2015 3:40 AM EDT) [facility] gist Method Time Signature Neutrophils % 68.0 % [facility] LABORATORY Neutr Abs (ANC) 8.20 (H) 1.70 - [facility] 6.10 [facility] x10(3)/[facility] LABORATORY Lymphocytes % 18.2 % [facility] Lymphocytes Abs 2.2 0.9 - 3.2 [facility] x10(3)/[facility] LABORATORY Monocytes % 9.8 % [facility] Monocyte Abs 1.2 (H) 0.3 - 0.9 [facility] x10(3)/[facility] LABORATORY Eosinophils % 2.9 % [facility] Eosinophils Abs 0.4 0.0 - 0.4 [facility] x10(3)/[facility] LABORATORY Basophils % 0.7 % [facility] Basophils Abs 0.1 0.0 - 0.1 [facility] x10(3)/[facility] LABORATORY Immature Gran % 0.40 % [facility] Comment: Immature granulocytes(IG's)percentage an d absolute count will include metamyelocytes, myelocytes, and promyelo cytes. Blood smears from CBCs yielding IG's will be scanned manually for concor dance. If this scan disagrees with the automated IG or if promyelocytes are not ed, a manual differential will be performed. Anna Gran Abs 0.05 (H) 0.00 - 0.04 x10(3)/[facility] LABORATORY Specimen Anatomical Collection Method Collection Time Receive d Time (Source) Location / / Volume Laterality Blood specimen 10/25/2015 3:40 AM 016 3:53 (specimen) EDT AM EDT Resulting Agency Comment Spec In Lab Raj Avila MD HEMATOLOGY ORDERABLES Performing Organization Address City/State/[place] [address] (ABNORMAL) Hemogram (10/25/2015 3:40 AM EDT) Analysis Performed At [facility] logist Time Signature WBC 12.0 (H) 4.0 - 9.5 [facility] x10(3)/[facility] LABORATORY RBC 5.47 4.58 - [facility] 5.54 [facility] x10(6)/[facility] LABORATORY Hemoglobin 15.6 13.7 [facility] g[facility]/dL [facility] LABORATORY Hematocrit 48.5 40.[address] [facility] 48.5 % [facility] LABORATORY MCV 88.7 82.[address] [facility] 93.1 [facility] LABORATORY MCH 28.5 27.5 - EVELINE AUDREY 32.[address] [facility] LABORATORY MCHC 32.2 32.0 - [facility] AUDREY 35.7 gm/dL [facility] LABORATORY Platelets 219 145 - 357 [facility] x10(3)/[facility] LABORATORY RDWSD 45.3 (H) 36.0 - [facility] 45[facility]0 [facility] LABORATORY RDWCV 14.1 (H) 11.4 - [facility] 13.8 % [facility] LABORATORY MPV 10.2 7.6 - 12.9 [facility] LABORATORY nRBC % Auto 0.0 % [facility] LABORATORY nRBC Abs Auto 0.000 0.000 - [facility] 0.000 [facility] x10(3)/[facility] LABORATORY Specimen Anatomical Collection Method Collection Time Receive d Time (Source) Location / / Volume Laterality Blood specimen 10/25/2015 3:40 AM 016 3:53 (specimen) EDT AM EDT Resulting Agency Comment Spec In Lab Raj Avila MD HEMATOLOGY ORDERABLES Performing Organization Address City/State/[place] [address] Prothrombin Time (10/25/2015 3:40 AM EDT) P athologist Signature PT 14.0 12.0 - 15.0 [facility] LABORATORY Comment: An INR <2.0 indicates [...] linical circumstances. INR 1.1 0.9 - 1.1 [facility] LABORATORY Specimen Anatomical Collection Method Collection Time Receive d Time (Source) Location / / Volume Laterality Blood specimen 10/25/2015 3:40 AM 016 3:53 (specimen) EDT AM EDT Resulting Agency Comment Spec In Lab Raj Avila MD HEMATOLOGY ORDERABLES Performing Organization Address City/State/[place] [address] (ABNORMAL) BMP w/fasting Glucose (10/25/2015 3:40 AM EDT) athologist Signature Glucose 119 (H) 65 - 99 [facility] Fasting mg/dL [facility] Comment: ?Fasting* Glucose Interpretive C [...] of Diabetes Mellitus, Position Statement from the [place] [employer]. ??Diabete s Care, Volume 33, Supplement 1, Feb 2009 BUN 15 10 - 20 mg/dL [facility] LABORAT[facility] Creatinine 0.99 0.80 - 1.50 mg/dL [facility] LAB[facility] Comment: Please note that the pediatric reference intervals supplied above were not validated at [facility]. Results from pediatri c patients should be interpreted in conjunction to the patient's age, height and muscle mass. Sodium 141 135 - 145 mmol/L [facility] LABORAT[facility] Potassium 4.4 3.5 - 5.0 mmol/L [facility] Comment: Please note: ??Patients with WBC >100,00 0 may have falsely elevated Potassium levels. ??For accurate Potassium quantif ication in these patients send serum separator tube (gold top) for subsequent determinations. ??Contact the Clinical Chemistry Laboratory if there are any qu estions. Chloride 101 98 - 107 mmol/L [facility] LABOR[facility]ORY CO2 24 22 - 31 mmol/L [facility] Anion Gap 16 (H) 5 - 15 mmol/L [facility]OR[facility] Calcium 9.1 8.5 - 10.5 mg/dL [facility]OR[facility] Estimated GFR >60 >=60 [facility] Comment: This estimated GFR (eGFR) [...] the following links into your internet browser. [email or web address] Specimen Anatomical Collection Method Collection Time Receive d Time (Source) Location / / Volume Laterality Blood specimen 10/25/2015 3:40 AM 016 3:53 (specimen) EDT AM EDT Resulting Agency Comment Spec In Lab Raj Avila MD CHEMISTRY ORDERABLES Performing Organization Address City/State/[place] [address] Cardiac Enzymes (10/25/2015 3:40 AM EDT) P athologist Signature Troponin-T <0.03 <=0.03 [facility] ng/mL [facility] LABOR[facility] Comment: 0.03 ng/mL: Represents the [...] consensus document of the Joint Society of Cardiology/[place] College o f [employer] Committee for the redefinition of myocardial infarction. ? ?Journal of the [place] College of [employer]iology 2000; 36: 959-969] CK, Total 82 0 - 200 unit/L [facility] LABORATORY Specimen Anatomical Collection Method Collection Time Receive d Time (Source) Location / / Volume Laterality Blood specimen 10/25/2015 3:40 AM 016 3:53 (specimen) EDT AM EDT Resulting Agency Comment Spec In Lab Raj Avila MD CHEMISTRY ORDERABLES Performing Organization Address City/State/[place] [address] SCAN DOC: AIRPORT DRIVER (10/25/2015 12:00 AM EDT) Narrative This result [...] 502 ms MUSE SYSTEM (Bezet) Calculated R [place] -77 degrees MUSE SYSTEM Calculated T [place] 73 degrees MUSE SYSTEM INTERPRETATION Electronic ventricular pacemaker MUSE SYSTEM When compared with ECG of 24-OCT-2015 08:50, Vent. rate has decreased BY ?? 9 BPM Confirmed by Robel CONTE MD, Jesu ([id number]) on 10/24/2015 4:30: 34 PM Specimen Anatomical Collection Method Collection Time Receive d Time (Source) Location / / Volume Laterality 10/24/2015 1:22 PM 6 4:30 EDT PM EDT Raj Avila MD ECG ORDERABLES Performing Organization Address City/[facility]/ZIP Code Phon e Number MUSE SYSTEM EKG [...] 475 ms MUSE SYSTEM (Bezet) Calculated P [place] -51 degrees MUSE SYSTEM Calculated R [place] -68 degrees MUSE SYSTEM Calculated T [place] 87 degrees MUSE SYSTEM INTERPRETATION Electronic ventricular [...] Avila MD ECG ORDERABLES Performing Organization Address [facility] Phon e Number MUSE SYSTEM Prothrombin Time (10/24/2015 8:09 AM EDT) P athologist Signature PT 13.7 12.0 - 15.0 [facility] LABORATORY Comment: An INR <2.0 indicates [...] linical circumstances. INR 1.0 0.9 - 1.1 [facility] LABORATORY Specimen Anatomical Collection Method Collection Time Receive d Time (Source) Location / / Volume Laterality Blood specimen 10/24/2015 8:09 AM 016 8:16 (specimen) EDT AM EDT Resulting Agency Comment Spec In Lab Raj Avila MD HEMATOLOGY ORDERABLES Performing Organization Address City/[facility]/ZIP [facility] [place] [address] documented in this encounter Visit Diagnoses Diagnosis ASCVD (arteriosclerotic cardiovascular d isease) - Primary Unspecified cardiovascular disease PAF (paroxysmal atrial fibrillation) Atrial fibrillation Essential hypertension Unspecified essential hypertension Hyperlipidemia Other and unspecified hyperlipidemia Hypothyroidism Unspecified hypothyroidism Presence of permanent cardiac pacemaker Cardiac pacemaker in situ Sick sinus syndrome Sinoatrial node dysfunction documented in this encounter Administered Medications Inactive [...] dose, Starting on Thu at 1836, Until Thu10/25/15 at 1237, Anxiety, Routine aspirin EC tablet 81 mg Given 10/25/2015 8:18 AM EDT 81 mg 81 mg, Oral, DAILY, First dose on Thu10/25/15 at 0900, Until Discontinued, Recovery (Recovery-Hospital Unit), Routine clopidogrel (PLAVIX) tablet 300 mg Given 10/24/2015 8:48 PM EDT 300 mg 300 mg, Oral, ONCE, 1 dose, On Thu10/24/15 at 2100, Routine clopidogrel (PLAVIX) tablet 75 mg Given 10/25/2015 8:18 AM EDT 75 mg 75 mg, Oral, DAILY, First dose on Thu10/25/15 at 0900, Until Discontinued, Recovery (Recovery-Hospital Unit), Routine DILTiazem (DILTIAZEM CD) ER capsule 240 mg Given 10/25/2015 8:18 AM EDT 240 mg 240 mg, Oral, DAILY, First dose on Thu10/25/15 at 0900, Until Discontinued, DO NOT CRUSH OR OPEN, Routine gemfibrozil (LOPID) tablet 600 mg Given 10/25/2015 6:51 AM EDT 600 mg 600 mg, Oral, 2 TIMES DAILY BEFORE MEALS, First dose on Thu10/24/15 at 1800, Until Discontinued, Routine Given 10/24/2015 5:47 PM EDT 600 mg levothyroxine (SYNTHROID) tablet 100 mcg Given 10/25/2015 6:51 AM EDT 100 mcg 100 mcg, Oral, EVERY MORNING, First dose on Izabel 10/25/15 at 0600, Until Discontinued, Routine meTOPROLOL tartrate (LOPRESSOR) tablet 2 5 mg Given 10/25/2015 8:19 AM EDT 25 mg 25 mg, Oral, 2 TIMES DAILY, First dose on Thu10/24/15 at 2100, Until Discontinued, Routine Given 10/24/2015 8:49 PM EDT 25 mg Mometasone-Formoterol 200-5 mcg/actuation Given 10/25/2015 8:19 AM EDT 2 puffs HFAA 2 puff 2 puff, Inhalation, 2 TIMES DAILY, First dose on Thu10/24/15 at 2100, Until Discontinued Given 10/24/2015 8:49 PM EDT 2 puffs sodium chloride 0.9% infusion New Bag 10/24/2015 1:40 PM EDT 100 mL/hr 100 mL/hr 100 mL/hr, Intravenous, CONTINUOUS, Starting on Thu10/24/15 at 1330, Until Thu10/24/15 at 1629, Recovery (Recovery-Hospital Unit) warfarin (COUMADIN) daily order reminder Oral, EVERY [...] (Given - Pro vider: Sidra Lindo RN) 0817 (Given - Provider: Lyndsay Obando RN) 1 puff, Inhalation, 2 TIMES DAILY, First dose on Thu10/24/15 at 2100 aspirin EC tablet 81 mg 0818 (Gi milagros - Provider: Lyndsay Obando RN) 81 mg, Oral, DAILY, First dose on Izabel at 0900, Until Discontinued, Recovery (Recovery-Hospital Unit), [...] 2048 (Given - Provider: Sidra Lindo RN) 818 (Given - Provider: Lyndsay tierney, TY) 25 mg, Oral, 2 TIMES DAILY, First dose o n Thu10/24/15 at 2100, Until Discontinued, Routine Mometasone-Formoterol 200-5 mcg/actuation HFAA 2 puff 2048 (Given - Provider: Sidra Lindo RN) 08 (Given - Provider: Lyndsay tierney RN) 2 puff, Inhalation, 2 TIMES DAILY, First [...] mg, Oral, EVERY EVENING, First dose on Izabel 10/25/15 at 1700, Until Discontinued, Routine Continuous Medication [...] injection (CANCELED) 1222 (Given - Provider: Nandini Garcia RN) ONCE PRN, Starting Thu10/24/15 at 1222, Until [...] (CANCEL ED) 1106 (Given - Provider: Leilani Sparks, RN)1209 (Given - Provider: Leilani Sparks, RN) ONCE PRN, Starting Thu10/24/15 at 1106, [...] tablet (CANCELED) 1151 (Given - Provider: Leilani Sparks, TY) ONCE PRN, Starting Thu10/24/15 at 1151, Until Thu10/24/15 at 1253, Cath (Intra- Procedure), Routine verapamil (ISOPTIN) injection (CANCELED) 1126 (Given - Provider: Neisha Luis MD) ONCE PRN, Starting Thu10/24/15 at 1126, Until Thu10/24/15 at 1253, Administer over 2 Minutes, Cath (Intra-Procedure) documented in this encounter Care Teams Financial Services Rep Relationship Specialty Start Date End Date Jeff Olivera MD PCP - General Family Medicine 10/24/15 09/02/21 documented as of this encounter
--- OUTSIDE RECORDS SUMMARY | 2021-10-25 11:08 | XMS_ITS ---
:1945 Author Care Team Providers Name Role Phone DR. JEFF OLIVERA Primary Care Provider [phone] DR. JEFF OLIVERA Referring Provider [phone] DR. AUDI HENAO Referring Provider [phone] Allergies Code Code System Name Reaction Severity Status Onset 703 RxNorm Amiodarone ? ? Active ? 934278 RxNorm Lipitor ? ? Active ? Medications Name Status Start Date Stop Date ? ? Coumadin Active ? Not available Take as directed; Managed by PCP diltiazem CD 240 mg capsule,extended release 24 hr Active ? Not available Take 1 capsule every day by oral route. Dulera 100 mcg-5 mcg/actuation HFA aerosol inhaler Active ? Not available Inhale 2 puffs twice a day by inhalation route. gabapentin 300 mg capsule Active ? Not av ailable Take 1 capsule 3 times a day by oral route. gemfibrozil 600 mg tablet Active ? Not av ailable Take 1 tablet twice a day by oral route. metoprolol tartrate 25 mg tablet Active ? Not available Take 1 tablet twice a day by oral route. Nitrostat 0.4 mg sublingual tablet Active ? Not available Place 1 tablet by sublingual route as needed. pravastatin 80 mg tablet Active ? Not aureliano ilable Take 1 tablet every day by oral route. Synthroid 100 mcg tablet Active ? Not aureliano ilable Take 1 tablet every day by oral route. Tudorza Pressair 400 mcg/actuation breath activated Active ? Not available Inhale 1 puff twice a day by inhalation route. Problems Name Status Onset Date Source ? Hypothyroidism Active ? ? Hyperlipidemia Active ? ? Hypertensive Disorder Active ? ? Atrial Fibrillation Active ? ? Dyspnea Active ? ? Chest Pain Active ? ? Permanent Cardiac Pacemaker Active ? ? Notes: chronic anticoagulation Procedures Date Name Performed by ? 06/27/2019 Removal of Permanent Pacemaker Pulse Gen erator Information not available with Replacement of Pacemaker Pulse Gene rator; Dual Lead System (Surg) ? Pacemaker Information not avai lable Notes: 2012 ? Vasectomy Information not avai lable ? Endarterectomy Information not avai lable Notes: left carotid 1992 Notes: Drug eluting stent x2 10/2015 Results Lab Results Date Name Specimen Result Interpretation Description Value Range Status Address ? 06/27/2019 Prothrombin P High Pt 15.0 sec 9.1-11.0 Lelo doris [facility] Laboratory & Pathology: [address] [place] [address] ? ? P ? Inr 1.50 ? Final [facility] Laboratory & Pathology: [address] [place] [address] 06/22/2019 SARS CoV 2 ? Upper nasopharyngeal ? F inal [facility] (COVID-19), Source Labor atory QL, veterinary laboratory diagnostician-PCR, & Respiratory Patho logy: Specimen [address] [place] [address] ? ? ? Sars-cov-2 not detected ? Final [facility] (Covid-19) Laborbarbara rain & Pathology: [address] [place] [address] Past Encounters None recorded. Social History Tobacco Smoking Status Former Smoker (1 pack per day) Notes : Quit 1992 Vaccine List None recorded. Plan of Care Reminders Provider Appointments None recorded. ? ? Lab None recorded. ? ? Referral None recorded. ? ? Procedures None recorded. ? ? Surgeries None recorded. ? ? Imaging None recorded. ? ? Vitals Height Weight BMI Blood Pressure 170.18 cm 113.4 kg 39.2 kg/m2 112/62 mm[Hg]
== END 2021-11-08 23:59 | disposition home or self-care (01) ==
LOC: CR 10:19
PROVIDERS: PCP Family Medicine; Referring Provider Thoracic Surgery (Cardiothoracic Vascular Surgery); Visit Provider Internal Medicine Cardiovascular Disease
DX: Z51.89 Encounter for other specified aftercare (principal); I25.10 Atherosclerotic heart disease of native coronary artery without angina pectoris; Z95.1 Presence of aortocoronary bypass graft
CPT/HCPCS: S9472

== ENCOUNTER 2021-12-09 10:00 | Outpatient (RCR) | payer MEDICARE, SELFPAY ==
--- OUTSIDE RECORDS SUMMARY | 2021-11-22 10:38 | XMS_ITS | Encounter Summary ---
:1945 Author Organization [facility] [place] [address] Care Team Providers Name Role Phone Jesusita Law MD Primary Care Provider [phone] Reason for Visit Reason Comments Medication Refill Encounter Details Date Type Department Care Team Description 10/13/2021 Refill Cardiac Surgery at [facility] Leilani Be, BEN [facility] [phone] CARDIOTHORACIC SURGERY [phone] [place], [place] [address] (Wo rk) Social History Tobacco [...] as of this encounter Plan of Treatment Not on filedocumented as of this encounter Visit Diagnoses Not on filedocumented in this encounter Care Teams Retail Associate Manager Bilingual Relationship Specialty Start Date End Date Jesusita Law MD PCP - General Family Medicine 09/03/[address] [place] [address] documented as of this encounter
--- OUTSIDE RECORDS SUMMARY | 2021-11-22 10:38 | XMS_ITS | Encounter Summary ---
:1945 Author Organization [facility] Address [address] [place] [address] Care Team Providers Name Role Phone Jesusita Law MD Primary Care Provider [phone] Encounter Details Date Type Department Care Team Description 11/05/2021 Office Visit Cardiac Surgery at [facility] artery [facility] [place] Murali disease involving [facility] terry dior heart with Drive unstable angina [place], [place] CARDIOTHORACIC pectoris, uns pecified [id number] SURGERY vessel or lesion type [phone] [place], [place] [address] Social History Tobacco Use Types Packs/Day Years [...] Sign Reading Time Taken Comments Blood Pressure 136/69 11/05/2021 10:02 AM EDT Pulse 85 11/05/2021 10:02 AM EDT Temperature - - Respiratory Rate - - Oxygen Saturation 99% 11/05/2021 10:02 AM EDT Inhaled Oxygen Concentration - - Weight 107.1 kg (236 lb 3.2 oz) 11/05/2021 10:02 AM EDT Height 170.2 cm (5' 7) 11/05/2021 10:02 AM Reported EDT Body Mass Index 36.99 11/05/2021 10:02 AM EDT documented in this encounter Progress Notes [facility]don Dawson MD - 11/05/2021 10:40 AM EDT Post-OP Note: Jesusita Law MD [address] [place] [address] JESUSITA LAW Mr. Guerra returns to clinic following his CABG surgery. Since discharge, he has been doing well. Pain is under reasonable control. He is eating well, urinating, and moving his bowels without problems. He has had no fevers, chills, or other problems with the wounds. He has been reasonably active. Problem List Patient Active Problem List Diagnosis ??? 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 PACEMAKER IMPLANT ? ? PRG CATH PLSD LEFT HEART CATH & ARTS W/INJ & ANGIO IMG S&I N/A 09/10/2021 CORONARY ANGIOGRAPHY; W LHC,POSSIBLE PCI performed by Vinod Hassan MD at [facility] CATH LABS ??? PRO CABG, ARTERIAL, SINGLE N/A 09/27/2021 @CABG, USING ARTERIAL GRAFT;SINGLE ARTERIAL GRAFT (WRVU 33.75) performed by Abdon Dawson MD at [facility] MAIN OR ??? PRO CABG, ARTERY-VEIN, THREE N/A 09/27/2021 @CABG; 3 VENOUS GRAFTS & ARTERIAL GRAFT (WRVU 10.49) performed by Abdon Dawson MD at [facility] MAIN OR ??? PRO EMBLC/THRMBC FEMORAL POPLITEAL AORTO-ILIAC ARTERY Left 09/29/2021 EMBOLECTOMY OR THROMBECTOMY, FEMOROPOPLITEAL, AORTOILIAC ARTERY BY LEG INCISION (WRVU 19.48) performed by Joselito Washburn MD at [facility] MAIN OR ??? PRO ENDOSCOPY W/VIDEO-ASST VEIN HARVEST, CABG N/A 09/27/2021 ENDOSCOPIC HARVEST VEIN(S) FOR CABG (WRVU 0.31) performed by Abdon Dawson MD at [facility] MAIN OR No outpatient medications have been marked as taking for the 11/05/21 encounter (Office Visit) with Abdon Dawson MD. No data found. 107.1 kg (236 lb 3.2 oz) Weight: 107.1 kg (236 lb 3.2 oz) On physical exam, he looks well. [...] documented in this encounter Plan of Treatment Not on filedocumented as of this encounter Procedures Procedure Name Priority Date/Time Associated Diagnosis Comme nts EKG 12-LEAD Routine 11/05/2021 10:08 AM Coronary artery Resul ts for this EDT disease involving procedure are in [place] heart with the result s unstable angina section. pectoris, unspecified vessel or lesion type documented in this encounter Results EKG 12 Lead (11/05/2021 10:08 AM EDT) Component Value Ref Range Test Analysis Performed Pathologis t Method Time At Signature Ventricular rate 83 BPM MUSE SYSTEM QRS Duration 140 ms MUSE SYSTEM Q-T Interval 414 ms MUSE SYSTEM QTC Calculated 486 ms MUSE SYSTEM (Bezet) Calculated R [place] 111 degrees MUSE SYSTEM Calculated T [place] 61 degrees MUSE SYSTEM INTERPRETATION Atrial fibrillation with frequent ventricular-paced co mplexes MUSE SYSTEM Right bundle branch block Abnormal ECG When compared with ECG of 27-SEP-2021 17:47, Atrial fibrillation and ??El ectronic ventricular pacemaker has replaced Sinus rhythm Confirmed by MD Danish, Jovani Carroll ([id number]) on 11/05/2021 11: 22:34 AM Specimen Anatomical Collection Method Collection Time Receive d Time (Source) Location / / Volume Laterality 11/05/2021 10:08 11/05/2021 AM EDT 11:22 AM EDT Abdon Dawson MD ECG ORDERABLES Performing Organization Address City/State/ZIP Code Phon e Number MUSE SYSTEM documented in this encounter Visit Diagnoses Diagnosis 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
--- OUTSIDE RECORDS SUMMARY | 2021-11-22 10:38 | XMS_ITS | Clinical Summary ---
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 09/24/2021 pectoris, [...] Date Type Specialty Care Team Description 11/05/2021 Office Visit Cardiac Surgery Samir, Coronary art arlyn Abdon Carrion MD disease involvi ng [place] wi th unstable angina pectoris, unspe cified vessel or lesio n type 11/05/2021 Hospital Encounter Radiology Samir, Coronary artery Abdon Carrion MD disease involvi ng [place] wi th unstable angina pectoris, unspe cified vessel or lesio n type 10/22/2021 Office Visit Vascular Surgery Joselito Washburn Atrial fi Mulugeta lorenzo MD unspecified typ e 10/22/2021 Office Visit Cardiac Surgery Samir, S/P CABG (co lottie Carrion MD artery bypass g raft) 10/22/2021 Hospital Encounter Radiology Samir, Coronary artery Abdon Carrion MD disease involvi ng [place] wi th unstable angina pectoris, unspe cified vessel or lesio n type 10/22/2021 Tech Visit Vascular Surgery James, Arterial em bolism of Sonia M left leg 10/13/2021 Refill Cardiac Surgery Leilani Be PA 10/03/2021 Orders Only Cardiothoracic Samir, Coronary tien ry Surgery Abdon Carrion MD disease involvi ng [place] wi th unstable angina pectoris, unspe cified vessel or lesio n type 10/03/2021 Orders Only Cardiothoracic Samir, Coronary tien ry Surgery Abdon Carrion MD disease involvi ng [place] wi th unstable angina pectoris, unspe cified vessel or lesio n type 09/29/2021 Surgery Surgery Joselito Washburn EMBOLECTOMY O R MD Mulugeta THROMBECTOMY, FEMOROPOPLITEAL , AORTOILIAC TIEN RY BY LEG INCISION (W RVU 19.48) 09/29/2021 Anesthesia Event Surgery Mir Arcos MD 09/27/2021 Surgery Surgery Samir, @CABG, USING AR DEIDRE Carrion MD GRAFT;SINGLE AR TERIAL GRAFT (WRVU 33. 75) 09/27/2021 Anesthesia Event Surgery Henny Castanon MD 09/27/2021 Hospital Encounter Cardiology Samir, Coronary artery disease involving [place] with unstable angina pectoris, unspecified vessel or lesion type; - Abdon Carrion MD S/P CABG x 4; 10/03/2021 PAF (paroxysmal atrial fibrillation); Arterial emboli sm of left leg 09/24/2021 Laboratory Lab Appointment 09/24/2021 Hospital Encounter Radiology Samir, Coronary artery Abdon Carrion MD disease involvi ng [place] wi th unstable angina pectoris, unspe cified vessel or lesio n type 09/24/2021 Clinical Support Coronary ar annie disease involvi ng [place] wi th unstable angina pectoris, unspe cified vessel or lesio n type 09/24/2021 Laboratory Lab Coronary artery Appointment disease involvi ng [place] wi th unstable angina pectoris, unspe cified vessel or lesio n type 09/24/2021 Office Visit Cardiac Surgery Samir, Coronary art arlyn Carrion MD disease involvi ng [place] wi th unstable angina pectoris, unspe cified vessel or lesio n type 09/10/2021 Surgery Cardiology Viond Munoz CARDIAC MD Jenny CATHETERIZATION 09/10/2021 Hospital Encounter General Surgery Vinod Munoz Scre ening for cardiovascular condition; MD Jenny Abnormal stress test; Chest pain, uns pecified type 08/29/2021 Orders Only Cardiology Macario Hooker Screening for cardiovascular condition; BEN Bautista Abnormal stress test; Chest pain, uns pecified [...] Pulse 85 11/05/2021 10:02 AM EDT Temperature 36.7 ??C (98.1 ??F) 10/03/2021 7:19 AM EDT Respiratory Rate 19 10/03/2021 10:53 AM EDT Oxygen Saturation 99% 11/05/2021 10:02 AM EDT Inhaled Oxygen Concentration - - Weight 107.1 kg (236 lb 3.2 oz) 11/05/2021 10:02 AM EDT Height 170.2 cm (5' 7) 11/05/2021 10:02 AM Reported EDT Body Mass Index 36.99 11/05/2021 10:02 AM EDT Plan of Treatment Health Maintenance Due Date Last Done Comments Covid-19 Vaccine (#1) 1945 Hepatitis C Screening 04/30/1965 Tdap adult 04/30/1966 Tetanus vaccine 04/30/1966 Colonoscopy 04/30/1992 Zoster vaccine (1 of 2) 04/30/1997 AAA Screen 04/30/2012 Pneumoccocal Vaccine: 65+ (1 - PCV) 04/30/2012 Influenza (Flu) vaccine (1 of 1 - Influenza standard 10/10/2021 series) Medical Devices Implanted Type 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 Construction 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 Device Shelf Model / Identifier Expiration Serial / Date Lot Cable Sternal Tapered Blunt Needle Cutti ng Edge Ss Vaiden ([id number]) - [id number] N/A: [employer] 01/10/2026 [id number] / Implanted: Qty: 1 on 09/27/2021 by Abdon Dawson MD at [facility] Sternum - [employer] / [id number] Lead-07/27/2012 Lead Heart Medtronic - [id number] / Implanted: Qty: 1 on 07/27/2012 [id number] / Description: RV Lead See Pacemaker for MRI Conditions: Tim Betancourt RT(R)(CT)(MR)(ARRT), MRI Safety Technologist, 12/22/2019 Edwin Jack [id number] Pacemaker Chest Wall [employer] - [id number] / Implanted: Qty: 1 on 06/27/2019 by Brodie Kelly DO [id number] / Description: When [place] at [facility] [place] the above implant ([id number]) is MR [...] Comme nts EKG 12-LEAD Routine 11/05/2021 10:08 Coronary artery Results for this AM EDT disease involving procedure are in [place] with the result s unstable angina section. pectoris, unspecified vessel or lesion type XR CHEST PA AND LATERAL Routine 11/05/2021 9:43 Coronary arter y Results for this AM EDT disease involving procedure are in [place] with the result s unstable angina section. pectoris, unspecified vessel or lesion type XR CHEST PA AND LATERAL Routine 10/22/2021 12:56 Coronary tien ry Results for this PM EDT disease involving procedure are in [place] with the result s unstable angina [...] disease involving p rocedure are in OR [place] with the result s unstable angina section. pectoris, unspecified vessel or lesion type ENDOSCOPIC HARVEST 09/27/2021 12:51 Coronary artery VEIN(S) FOR CABG (WRVU PM EDT disease involving 0.31) [place] with unstable angina pectoris, unspecified vessel or lesion type @CABG; 3 VENOUS GRAFTS 09/27/2021 12:51 Coronary arter y & ARTERIAL GRAFT (WRVU PM EDT disease involving 10.49) [place] with unstable angina pectoris, unspecified vessel or lesion type @CABG, USING ARTERIAL 09/27/2021 12:51 Coronary artery GRAFT;SINGLE ARTERIAL PM EDT disease involving GRAFT (WRVU 33.75) [place] with unstable angina pectoris, unspecified vessel or lesion type PREPARE RBC STAT 09/27/2021 12:05 Results for this PM EDT procedure are i n the results section. POCT GLUCOSE Routine 09/27/2021 11:37 Results for this AM EDT procedure are i n the results section. ENDOSCOPIC HARVEST Routine 09/27/2021 10:15 Coronary artery VEIN(S) FOR CABG AM EDT disease involving [place] with unstable angina pectoris, unspecified vessel or lesion type @CABG,USING ARTERIAL Routine 09/27/2021 10:15 Coronary artery GRAFT;SINGLE ARTERIAL AM EDT disease involving GRAFT [place] with unstable angina pectoris, unspecified vessel or lesion type @CABG;3 VENOUS GRAFTS & Routine 09/27/2021 10:15 Coronary tien ry ARTERIAL GRAFT AM EDT disease involving [place] with unstable angina pectoris, unspecified vessel or lesion type LAB SCAN 09/27/2021 12:00 Results for this AM EDT procedure are i n the results section. XR CHEST PA AND LATERAL Routine 09/24/2021 2:03 Coronary arter y Results for this PM EDT disease involving procedure are in [place] with the result s unstable angina section. pectoris, unspecified vessel or lesion type EKG 12-LEAD Routine 09/24/2021 1:08 Coronary artery Results f or this PM EDT disease involving procedure are in [place] with the result s unstable angina [...] PM EDT disease involving procedure are in [place] with the result s unstable angina section. pectoris, unspecified vessel or lesion type HEMOGRAM Routine 09/24/2021 1:06 Coronary artery Results f or this PM EDT disease involving procedure are in [place] with the result s unstable angina section. pectoris, unspecified vessel or lesion type ANTIBODY SCREEN Routine 09/24/2021 1:06 Coronary artery Result s for this PM EDT disease involving procedure are in [place] with the result s unstable angina section. pectoris, unspecified vessel or lesion type ABO/RH TYPING Routine 09/24/2021 1:06 Coronary artery Results for this PM EDT disease involving procedure are in [place] with the result s unstable angina section. pectoris, unspecified vessel or lesion type BASIC METABOLIC PANEL Routine 09/24/2021 1:06 Coronary artery Results for this (NON-FASTING) PM EDT disease involving procedure are in [place] with the result s unstable angina section. pectoris, unspecified vessel or lesion type HC CBC,PLT & AUTO DIFF Routine 09/24/2021 1:06 Coronary artery PM EDT disease involving [place] with unstable angina pectoris, unspecified vessel or lesion type HC ANTIBODY Routine 09/24/2021 1:06 Coronary artery DETECTION,CAPTURE-R PM EDT disease involving [place] with unstable angina pectoris, unspecified vessel [...] results section. from Last 3 Months Results EKG 12 Lead (11/05/2021 10:08 AM EDT)Only the most recent of4 resultswithin the time period is included. Component Value Ref Range Test Analysis Performed Pathologis t Method Time At Signature Ventricular rate 83 BPM MUSE SYSTEM QRS Duration 140 ms MUSE SYSTEM Q-T Interval 414 ms MUSE SYSTEM QTC Calculated 486 ms MUSE SYSTEM (Bezet) Calculated R [place] 111 degrees MUSE SYSTEM Calculated T [place] 61 degrees MUSE SYSTEM INTERPRETATION Atrial fibrillation [...] City/State/ZIP Code Phon e Number MUSE SYSTEM XR Chest PA & Lateral (Generic) (11/05/2021 9:43 AM EDT)Only the most recent of4 resultswithin the time period is included. Anatomical Region Laterality Modality Chest N/A Digital Radiography Specimen (Source) Anatomical Location Collection Method / Collectio n Time Received Time / Laterality Volume Impressions 11/05/2021 2:19 PM EDT No acute cardiopulmonary process. I have personally reviewed the image(s) and the resident's interpretation and agree with the findings, Trang Brown MD at 11/05/2021 2:19 PM Thank you for letting us participate in the care of this patient. ??If you are a health care provider and have any questi ons regarding this report, please contact the number below. ??For patients who have questions please contact the health lead care manager that requested your imaging first. ? Electronically signed by: Trang Brown MD, [facility] ([phone]), at 11/05/2021 2:19 PM Narrative 11/05/2021 2:19 PM EDT EXAMINATION: XR CHEST PA AND LATERAL (GENERIC) CLINICAL HISTORY: s/p cabg TECHNIQUE: PA and lateral views of the c hest COMPARISON: 10/22/2021 FINDINGS: Left chest wall pulse generator with 2 l jg projecting over the right atrium and right ventricle. Intact sternotomy w ires and multiple surgical clips projecting over the mediastinum. Normal heart size, cardiomediastinal faye houette, hilum, and pulmonary vasculature. Lungs are clear bilaterally . Sharp bilateral costophrenic angles. No pneumothorax. No displaced rib fractu res. Procedure Note Trang Navarro MD - 2021 EXAMINATION: XR CHEST PA AND LATERAL (Goodie Goodie App) CLINICAL HISTORY: s/p cabg TECHNIQUE: PA and lateral views of the c hest COMPARISON: 10/22/2021 FINDINGS: Left chest wall pulse generator with 2 l jg projecting over the right atrium and right ventricle. Intact sternotomy w ires and multiple surgical clips projecting over the mediastinum. Normal heart size, cardiomediastinal faye houette, hilum, and pulmonary vasculature. Lungs are clear bilaterally . Sharp bilateral costophrenic angles. No pneumothorax. No displaced rib fractu res. IMPRESSION No acute cardiopulmonary process. I have personally reviewed the image(s) and the resident's interpretation and agree with the findings, Trang Brown MD at 11/05/2021 2:19 PM Thank you for letting us participate in the care of this patient. If you are a health care provider and have any questi ons regarding this report, please contact the number below. For patients w ho have questions please contact the health lead care manager that requested your imaging first. Electronically signed by: Trang Brown MD, [facility] ([phone]), at 11/05/2021 2:19 PM Abdon Dawson MD IMG DX ORDERABLES TONEY, legs, multiple levels (10/22/2021 10:44 AM EDT) Component Value Ref Test Analysis Performed At [facility] Range Method Time Signature VB Text Department: Vascular Surgery Lab VASCUBASE Report Patient: [id number] (GRAMMO, LALO) CPT: 76206 Referring Physician: ABDON DAWSON ?? Indications: S/p [...] Signature POC Glucose 114 65 - 199 [facility] mg/dL [facility] Comment: Supplemental ranges: <140 mg/dL before meals <180 mg/dL all other times of the day Specimen Anatomical Collection Method Collection Time Receive d Time (Source) Location / / Volume Laterality Blood 10/03/2021 11:35 10/03/2021 AM EDT 11:35 AM EDT Abdon Dawson MD POINT OF CARE TEST ORDERABLE S Performing Organization Address City/[facility]/[place] [address] Heparin (unfractionated) Level (10/03/2021 4:26 AM EDT)Only the most recent of5 resultswithin the time period is included. P athologist Signature Heparin UFH 0.27 IU/mL [facility] Comment: Heparin (anti-Xa) levels should [...] Dawson MD HEMATOLOGY ORDERABLES Performing Organization Address City/[facility]/[place] [address] (ABNORMAL) Hemogram (10/03/2021 4:26 AM EDT)Only the most recent of9 results within the time period is included. Analysis Performed At Patho logist Time Signature WBC 10.0 (H) 4.0 - 9.5 [facility] x10(3)/[facility] LABORATORY RBC 3.35 (L) 4.58 - [facility] 5.54 [facility] x10(6)/[facility] LABORATORY Hemoglobin 9.8 (L) 13.7 - [facility] 16.[facility] g/dL [facility] Hematocrit 29.4 (L) 40.5 - [facility] 48.5 % [facility] MCV 87.8 82.9 - [facility] 93.1 [facility] LABORATORY MCH 29.3 27.5 - [facility] 32.1 pg [facility] MCHC 33.3 32.0 - [facility] 35.7 g/dL [facility] Platelets 238 145 - 357 [facility] x10(3)/[facility] LABORATORY RDWSD 46.2 (H) 36.0 - [facility] 45.0 [facility] LABORATORY RDWCV 14.4 (H) 11.4 - [facility] 13.8 % [facility] MPV 11.0 7.6 - 12.9 [facility] LABORATORY nRBC % Auto 0.0 % [facility] nRBC Abs Auto 0.000 0.000 - [facility] 0.000 [facility] x10(3)/[facility] LABORATORY Specimen Anatomical Collection Method Collection Time Receive d Time (Source) Location / / Volume Laterality Blood 10/03/2021 4:26 AM 4:41 EDT AM EDT Resulting Agency Comment Spec In Lab Leilani CONTRERAS HEMATOLOGY ORDERABLES Performing Organization Address City/State/[place] [address] (ABNORMAL) Differential, Automated (10/03/2021 4:26 AM EDT)Only the most recent of8 resultswithin the time period is included. [facility] Method Time Signature Neutrophils % 63.0 % [facility] Neutr Abs (ANC) 6.33 (H) 1.70 - [facility] 6.10 [facility] x10(3)/[facility] L LABORATORY Lymphocytes % 18.6 % [facility] Lymphocytes Abs 1.9 0.9 - 3.2 [facility] x10(3)/[facility] LABORATORY Monocytes % 11.3 % [facility] Monocyte Abs 1.1 (H) 0.3 - 0.9 [facility] x10(3)/[facility] LABORATORY Eosinophils % 5.9 % [facility] Eosinophils Abs 0.6 (H) 0.0 - 0.4 [facility] x10(3)/[facility] LABORATORY Basophils % 0.5 % [facility] Basophils Abs 0.0 0.0 - 0.1 [facility] x10(3)/[facility] LABORATORY Immature Gran % 0.70 % [facility] [...] Gran Abs 0.07 (H) 0.00 - 0.04 x10(3)/[facility] LABORATORY Specimen Anatomical Collection Method Collection Time Receive d Time (Source) Location / / Volume Laterality Blood 10/03/2021 4:26 AM 4:41 EDT AM EDT Resulting Agency Comment Spec In Lab Leilani CONTRERAS HEMATOLOGY ORDERABLES Performing Organization Address City/State/[place] [address] (ABNORMAL) Prothrombin Time (10/03/2021 4:26 AM EDT)Only the most recent of6 resultswithin the time period is included. P athologist Signature PT 13.7 (H) 9.4 - 12.5 [facility] LABORATORY INR 1.2 [facility] [...] Dawson MD HEMATOLOGY ORDERABLES Performing Organization Address City/[facility]/ZIP Code Phon e Number [address] Potassium (10/03/2021 4:26 AM EDT)Only the most recent of6 resultswithin the time period is included. athologist Signature Potassium 4.1 3.5 - 5.0 [facility] mmol/L [facility] Comment: Please note: ??Patients with [...] Dawson MD CHEMISTRY ORDERABLES Performing Organization Address City/[facility]/[place] [address] ECHOCARDIOGRAM LMTD W CONTRAST W LMTD SPEC DOPP COLOR DOPP (09/30/2021 11:20 AM EDT) athologist Signature EF 65 [facility] Anatomical Region Laterality Modality Cardiac Other Specimen (Source) Anatomical Collection Method Collection Time Re ceived Time Location / / Volume Laterality 09/30/2021 10:39 AM EDT Narrative 09/30/2021 1:22 PM EDT ? Echocardiogram Report Name: [address] ? Study Date: 09/30/2021 10:39 AMBP: 128/89 mmHg ? Patient Location: [address] : 1945 ? Height: 170 cm ? Account: [id number] Age: 76 yrs ? Weight: 115 kg Gender: Male ?BSA: 2.2 m2 Ordering Physician: SAMIR^ABDON^Muarli Referring Physician: Abdon Dawson Performed By: Azar Argueta, VINICIO, RCS Exam Location: [facility]. Interpretation Summary Patient is in atrial fibrillation during the study. Technically difficult study. LV function is normal with LVEF of 65% w ith beat to beat variability. There is a possible focal apical wall motion abnorm ality. Right ventricular size and function are normal. There is no hemodynamically significant valvular disease present. No prior transthoracic echo for comparis on. Procedure Limited - 40785. Image enhancement Optis on was used for [...] different from the original. Echocardiogram Report Name: [address] Study Date: 09/10 10:39 AMBP: 128/89 mmHg Patient Location: [address] : 1945 Height: 170 cm Account: [id number] Age: 76 yrs Weight: 115 kg Gender: Male BSA: 2.2 m2 Ordering Physician: [place] Referring Physician: Abdon Dawson Performed By: VINICIO Steiner, RCS Exam Location: [facility]. Interpretation Summary Patient is in atrial fibrillation during the study. Technically difficult study. LV function is normal with LVEF of 65% w ith beat to beat variability. There is a possible focal apical wall motion abnorm ality. Right ventricular size and function are normal. There is no hemodynamically significant valvular disease present. No prior transthoracic echo for comparis on. Procedure Limited - 24138. Image enhancement Optis on was used for [...] Signature Glucose Lvl 142 65 - 199 [facility] mg/dL [facility] Comment: Diabetes: >=200 mg/dL plus symp toms BUN 14 10 - 20 mg/dL [facility] Creatinine 0.71 (L) 0.80 - 1.50 mg/dL [facility] Sodium 138 135 - 145 mmol/L [facility] Potassium 4.0 3.5 - 5.0 mmol/L [facility] Comment: Please note: ??Patients [...] Anion Gap 10 5 - 15 mmol/L [facility] Calcium 8.3 (L) 8.5 - 10.5 mg/dL [facility] Comment: result rechecked-sf Estimated [...] Organization Address City/State/[place] [address] (ABNORMAL) BLOOD GAS 2 ARTERIAL (09/29/2021 1:32 PM EDT)Only the most recent of8 resultswithin the time period is included. Analysis Performed At Patho logist Time Signature pH Art 7.36 7.35 - [facility] 7.45 [facility] pCO2 Art 39 35 - 45 [facility] LAB[facility]ATORY pO2 Art 209 (H) 85 - 104 [facility] LABORATORY HCO3 Art 21.2 20.0 - [facility] 26.0 [facility] mmol/[facility] BE Art -4.0 (L) -3.0 - 3.0 [facility] mmol/L [facility] Hgb Blood Gas 11.5 (L) 13.7 - [facility] 16.5 g/dL [facility] O2HB Art 98.5 (H) 94.0 - [facility] 97.0 % [facility] COHB Art 0.4 % [facility] Comment: Nonsmokers: 0.5-1.5% COHB Smokers: Variable, but usually less than 10% Toxic: 20-30% COHB Lethal: Greater than 60% COHB METHB Art 0.3 <=1.5 % [facility] Na Whole Blood 134 (L) 135 - 145 mmol/L [facility] K Whole Blood 3.8 3.5 - 5.0 mmol/L [facility] Comment: Please note: Patients with [...] Whole Bld 134 65 - 199 mg/dL [facility] Comment: Diabetes: >=200 mg/dL plus symp toms. Lactate WB 1.4 0.5 - 2.2 mmol/L [facility] FIO2 Art 60 % [facility] Flow Art 1.0 LPM [facility] PF Ratio Art 348 [facility] Temp Art 38.2 Celsius [facility] Specimen Anatomical Collection Method Collection Time Receive d Time (Source) Location / / Volume Laterality Blood 09/29/2021 1:32 PM 2 1:32 EDT PM EDT Abdon Dawson MD CHEMISTRY ORDERABLES Performing Organization Address City/State/[place] [address] Arterial Duplex Leg, Unil (09/29/2021 12:08 PM EDT) Component Value Ref Test Analysis Performed [facility] Range Method Time Signature VB Text Department: Vascular Surgery Lab VASCUBASE Report Patient: [id number] ([address]) CPT: 62405 Referring Physician: JOSELITO WASHBURN ?? Phone: Indications: [...] VASCUBASE (ABNORMAL) Troponin (09/28/2021 2:15 AM EDT) athologist Signature Troponin-T 0.31 (H) 0.00 - MAIRA SANFOR[facility] 0.00 ng/mL [facility] Comment: The 99th percentile for Troponin T is le ss than 0.01 ng/mL, any detectable cTnT concentration using this assay should be considered elevated. According to the third universal definit ion of myocardial infarction the following criteria with a clinical prese ntation consistent with acute myocardial ischemia meets the diagnosis for a myocardial infarction ([place]). Detection of a rise and/or fall of [...] additional sample may be indicated. Reference: Third [place] Definition of Myocardial Infarction. Journal of the [place] [employer] 2012;60:1581-98 Specimen Anatomical Collection Method Collection Time Receive d Time (Source) Location / / Volume Laterality Blood 09/28/2021 2:15 AM 2:27 EDT AM EDT Resulting Agency Comment Spec In Lab Abdon Dawson MD CHEMISTRY ORDERABLES Performing Organization Address City/State/[place] [address] (ABNORMAL) Hemoglobin (09/27/2021 9:30 PM EDT)Only the most recent of2 results within the time period is included. athologist Signature Hemoglobin 11.2 (L) 13.7 - [place] 16.5 g/dL [facility] Specimen Anatomical Collection Method Collection Time Receive d Time (Source) Location / / Volume Laterality Blood 09/27/2021 9:30 PM 9:34 EDT PM EDT Resulting Agency Comment Spec In Lab Abdon Dawson MD HEMATOLOGY ORDERABLES Performing Organization Address City/State/[place] [address] [facility] [address] XR Chest One View (09/27/2021 [...] who have questions please contact the health lead care manager that requested your imaging first. ? Narrative [...] ho have questions please contact the health lead care manager that requested your imaging first. Abdon Dawson MD IMG DX ORDERABLES APTT (09/27/2021 4:37 PM EDT) athologist Signature [...] Castanon MD HEMATOLOGY ORDERABLES Performing Organization Address City/[facility]/[place] [address] (ABNORMAL) Thrombin time (09/27/2021 4:37 PM EDT) athologist Signature Thrombin Time 19 (H) 10 - 17 [facility] LABORATORY Comment: OR Result called by [...] Castanon MD HEMATOLOGY ORDERABLES Performing Organization Address [facility]/ZIP Code Phon e Number [address] Fibrinogen (09/27/2021 4:37 PM EDT)Only the most recent of2 resultswithin the time period is included. athologist Signature Fibrinogen 247 200 - 393 [facility] mg[facility]dL [facility] Comment: OR Result called by [...] Castanon MD HEMATOLOGY ORDERABLES Performing Organization Address City/[facility]/ZIP [place] [address] [facility] [address] Prepare cryoprecipitate (09/27/2021 4:20 PM EDT) athologist Signature Dispensed? Yes [facility] LABORATORY Specimen Anatomical Collection Method Collection Time Receive d Time (Source) Location / / Volume Laterality Blood 09/27/2021 4:20 PM 2 4:19 EDT PM EDT Abdon Dawson MD BLOOD BANK ORDERABLES Performing Organization Address City/State/[place] [address] [facility] [address] Platelet count (09/27/2021 3:40 PM EDT) athologist Signature Platelets 164 145 - 357 [facility] x10(3)/[facility] LABORATORY Plat Immature 3.8 0.0 - 7.4 [facility] % % [facility] Comment: Limitation of the Immature Platelet Frac tion (IPF)-May be less reliable when the platelet count is less than 67j691/u L due to statistical imprecision. The IPF [...] in a decreased state of production. References: [employer] The Clinical Value of the Immature Platelet Fraction (IPF) in Cell Recovery Document Number [id number] 07/2010 [employer] The Role of the Imm ature Platelet Fraction (IPF) in the Differential Diagnosis of Thrombocytopen ia, Document [id number] V05/01/22 P0514 Specimen Anatomical Collection Method Collection Time Receive d Time (Source) Location / / Volume Laterality Blood 09/27/2021 3:40 PM 2 3:55 EDT PM EDT Resulting Agency Comment Spec In Lab Abdon Dawson MD HEMATOLOGY ORDERABLES Performing Organization Address City/[facility]/ZIP Code Phon e Number [place] [id number] (ABNORMAL) Hematocrit (09/27/2021 3:40 PM EDT) athologist Signature Hematocrit 27.7 (L) 40.5 - MA[place]A VENTURA 48.5 % [facility] Comment: This result has been [...] HEMATOLOGY ORDERABLES Performing Organization Address [facility]/[place] [address] Transesophageal Echo/OR (09/27/2021 12:56 PM EDT) Anatomical Region Laterality Modality Cardiac Other Specimen (Source) Anatomical Collection Method Collection Time Re ceived Time Location / / Volume Laterality 09/27/2021 12:56 PM EDT Narrative 09/27/2021 4:32 PM EDT ? Version: 1 Name: [address] ?Study Date: 09/27/2021, 12: 56 PM ?Patient Location: [facility] : 1945 (MM/DD/YYYY) ? Age: 76 Years Gender: Male Ordering Physician: [id number]^SAMIR^ABDON^P^^^^^EPIC^^^^PROV ID Referring Physician: [id number]^UNKNOWN^^^^^^ ^EPIC^^^^PROVID ? Conclusions Intraoperative GIUSEPPE performed to [...] Castanon MD - 09/27/2021 Version: 1 Name: [address] Study Date: 09/09, 12: 56 PM Patient Location: [facility] : 1945 (MM/DD/YYYY) Age: 76 Years Gender: Male Ordering Physician: [id number]^SAMIR^ABDON^Murali^^^^^EPIC^^^^PROV ID Referring Physician: [id number]^UNKNOWN^^^^^^ ^EPIC^^^^PROVID Conclusions Intraoperative GIUSEPPE performed to confirm [...] 09/27/2021 PM EDT 12:02 PM EDT Abdon Dawson MD BLOOD BANK ORDERABLES Performing Organization Address City/[facility]/[place] [address] SCAN DOC: LAB (09/27/2021 12:00 AM EDT)Only the most recent of4 resultswithin the time period is included. Narrative 09/27/2021 12:00 AM EDT This result has an attachment that is no t available. Ordered by an unspecified provider. Scanning Provider MEDIA MGR SCAN EXT ORDR/RSLT Type and Screen Validity (09/24/2021 1:06 PM EDT) [facility] Method Time Signature T&S only valid [facility] LABORATORY Comment: This Type and Screen result is only valid at the [facility] Specimen Anatomical Collection Method Collection Time Receive d Time (Source) Location / / Volume Laterality Blood 09/24/2021 1:06 PM 2 1:15 EDT PM EDT Resulting Agency Comment Spec In Lab Abdon Dawson MD BLOOD BANK ORDERABLES Performing Organization Address City/[facility]/[place] [address] ABORH Recheck Status (09/24/2021 1:06 PM EDT) [facility] Method Time Signature ABORH Type Completed [facility] LABORATORY Specimen Anatomical Collection Method Collection Time Receive d Time (Source) Location / / Volume Laterality Blood 09/24/2021 1:06 PM 2 1:15 EDT PM EDT Resulting Agency Comment Spec In Lab Abdon Dawson MD BLOOD BANK ORDERABLES Performing Organization Address City/[facility]/[place] [address] ABO/Rh Typing (09/24/2021 1:06 PM EDT) P athologist Signature ABORh Type O Neg [facility] LABORATORY Specimen Anatomical Collection Method Collection Time Receive d Time (Source) Location / / Volume Laterality Blood 09/24/2021 1:06 PM 2 1:15 EDT PM EDT Resulting Agency Comment Spec In Lab Abdon Dawson MD BLOOD BANK ORDERABLES Performing Organization Address City/State/ZIP Code Phon e Number [address] Antibody screen (09/24/2021 1:06 PM EDT) Patholo gist Method Time Signature Ab Screen Negative MAIRA V[place]UR[place] [facility] LABORATORY Expires at 09/30/2021 MA[place]UR[place] [id number] on: [facility] Specimen Anatomical Collection Method Collection Time Receive d Time (Source) Location / / Volume Laterality Blood 09/24/2021 1:06 PM 1:15 EDT PM EDT Resulting Agency Comment Spec In Lab Abdon Dawson MD BLOOD BANK ORDERABLES Performing Organization Address City/[facility]/ZIP Code Phon e Number [address] CARDIAC CATHETERIZATION (09/10/2021 11:25 AM EDT) Anatomical Region Laterality Modality Other Specimen (Source) Anatomical Location Collection Method / Collectio n Time Received Time / Laterality Volume Narrative 09/10/2021 11:54 AM EDT ?[facility] ? Cardiac Cathete rization/Intervention Report ? Patient Name: Lalo Street ? Procedure Date: 09/10/2021 ? A #: [id number] ? Primary Physician: Tammy, Vinod T ? Case #: [id number] ? File Name: [id number] ? Catheterization Order Number: [id number] ? [facility] ? Final Report [place], [place] ? Patient Name: ? Lalo R. Gra mmo ?ID#: ?[id number] ? : ?1945 ? Procedure Date: ? September 10, 2021 ? Case #: ? [id number] ? Room: ? 6 ? Case Physician: ? Vinod Munoz M.D. ?Start: ?10:44 ?Fellow: ? Bubba Dimas D.O. ?Admission: ??09/10/2021 ?Annalise villa M.D. ? Referring Physician: ??Rich Reyes ? Procedures: ?* Coronary Angiography ?* Left Heart Catheterization ?* Arterial Blood Gases ? History ?Lalo Street is a 76 year old man. [...] procedure was Elective. The indication for ?the quality control lab tech visit is worsening angina. Chest pain symptom [...] Blood Gas Historical (09/10/2021 10:46 AM EDT) [facility] Method Time Signature POC pH 7.42 7.35 - [facility] 7.45 [facility] POC PCO2 39 35 - 45 [facility] LABORATORY POC PO2 96 85 - 104 [facility] POC Base Excess 1.0 -3.0 - 3.0 [facility] K mmol/L [facility] POC HCO3 25.1 20.0 - [facility] 26.0 [facility] mmol/[facility] LABORATORY POC Sodium 140 135 - 145 [facility] mmol/L [facility] POC Potassium 3.8 3.5 - 5.0 [facility] mmol/L [facility] POC Ionized Ca 1.16 1.15 - [facility] 1.33 [facility] mmol/L [facility] LAB[facility]AT[facility] POC Hematocrit 40.0 40.0 - [facility] 51.0 % [facility] POC Calc Hgb 13.6 (L) 13.7 - [facility] 17.5 g/dL [facility] Comment: The calculation of hemoglobin f rom hematocrit assumes a normal MCHC. POC Bgas Loc CC LAB [facility] LABORATORY Specimen Anatomical Collection Method Collection Time Receive d Time (Source) Location / / Volume Laterality Blood 09/10/2021 10:46 09/12/2021 AM EDT 12:00 PM EDT Vinod Munoz MD CHEMISTRY ORDERABLES Performing Organization Address City/State/[place] [address] (ABNORMAL) BMP w/fasting Glucose (09/10/2021 10:05 AM EDT) P athologist Signature Glucose 141 (H) 65 - 99 [facility] Fasting mg/dL [facility] Comment: ?Fasting* Glucose Interpretive C [...] of Diabetes Mellitus, Position Statement from the [place] [employer]. ??Diabete s Care, Volume 33, Supplement 1, Feb 2009 BUN 17 10 - 20 mg/dL [facility] LABORATORY Creatinine 0.90 0.80 - 1.50 mg/dL [facility] LABORATORY Sodium 140 135 - 145 mmol/L [facility] LABORATORY Potassium 4.0 3.5 - 5.0 mmol/L [facility] LABORATORY Comment: Please note: ??Patients with WBC >100,00 0 may have falsely elevated Potassium levels. ??For accurate Potassium quantif ication in these patients send serum separator tube (gold top) for subsequent determinations. ??Contact the Clinical Chemistry Laboratory if there are any qu estions. Chloride 102 98 - 107 mmol/L [facility] LABORATORY CO2 26 22 - 31 mmol/L [facility] LABOR[facility]ORY Anion Gap 12 5 - 15 mmol/L [facility] LABORATORY Calcium 9.1 8.5 - 10.5 mg/dL [facility] LABORATORY Estimated GFR 90 >=60 mL/min/1.73 m?? 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
--- OUTSIDE RECORDS SUMMARY | 2021-11-22 10:38 | XMS_ITS | Encounter Summary ---
:1945 Author Organization [facility] Address [facility] [place] [address] Care Team Providers Name Role Phone Jesusita [place] MD Primary Care Provider [phone] Encounter Details Date Type Department Care Team Description 10/22/2021 Office Visit Cardiac Surgery at Abdon Dawson S/Murali SANTOS (coronary [facility], MD artery bypass graft) [facility] [address] [place] CARDIOTHORACIC [address] SURGERY [phone] [place] [address] Social History Tobacco Use Types Packs/Day Years [...] Note: Jesusita Law MD [address] [facility] [place] [address] JESUSITA Miller OMAYRAKAREN Guerra returns to clinic following his CABG surgery. Since discharge, he has been doing well. Pain is under reasonable control. He is eating well, urinating, and moving his bowels without problems. He has had no fevers, chills, or other problems with the wounds. He has been reasonably active. Problem List Patient Active Problem List Diagnosis ??? 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 PACEMAKER IMPLANT ? ? PRG CATH [facility] LEFT HEART CATH & ARTS W/INJ & ANGIO IMG S&I N/A 09/10/2021 CORONARY ANGIOGRAPHY; W LHC,POSSIBLE PCI performed by Vinod Hassan MD at [facility] CATH LABS ??? PRO CABG, ARTERIAL, SINGLE N/A 09/27/2021 @CABG, USING ARTERIAL GRAFT;SINGLE ARTERIAL GRAFT (WRVU 33.75) performed by Abdon Dawson MD at [facility] MAIN OR ??? PRO CABG, ARTERY-VEIN, THREE N/A 09/27/2021 @CABG; 3 VENOUS GRAFTS & ARTERIAL GRAFT (WRVU 10.49) performed by Abdon Dawson MD at [facility] MAIN OR ??? PRO EMBLC/THRMBC FEMORAL POPLITEAL AORTO-ILIAC ARTERY Left 09/29/2021 EMBOLECTOMY OR THROMBECTOMY, FEMOROPOPLITEAL, AORTOILIAC ARTERY BY LEG INCISION (WRVU 19.48) performed by Joselito Washburn MD at [facility] MAIN OR ??? PRO ENDOSCOPY W/VIDEO-ASST VEIN HARVEST, CABG N/A 09/27/2021 ENDOSCOPIC HARVEST VEIN(S) FOR CABG (WRVU 0.31) performed by Abdon Dawson MD at [facility] MAIN OR No outpatient medications have [...] filedocumented as of this encounter Visit Diagnoses Diagnosis S/P CABG (coronary artery bypass graft) Postsurgical aortocoronary bypass status documented in this encounter Care Teams Payroll Accounting Specialist Relationship Specialty Start Date End Date Jesusita Law MD PCP - General Family Medicine 09/03/[address] [place] [address] documented as of this encounter
--- OUTSIDE RECORDS SUMMARY | 2021-11-22 10:38 | XMS_ITS | Encounter Summary ---
:1945 Author Organization [facility] [place] [address] Care Team Providers Name Role Phone Jesusita Law MD Primary Care Provider [phone] Encounter Details Date Type Department Care Team Description 10/22/2021 Hospital Encounter [facility]Ray [place] [facility]don Dawson Coronary artery [address] [place] [address] Dr Murali MD disease involving [facility] [address] [place] unstable angina [phone] CARDIOTHORACIC pectoris, SURGERY unspecified vessel [place], [place] or lesion type [address] Social History Tobacco Use Types Packs/Day Years [...] 55 mcg route daily. 55 mcg Aerosol, Meredith spray 1 spray into both nostrils once [...] LATERAL EDT disease involving procedure are in [place] heart with the result s unstable angina [...] who have questions please contact the health inspector health care facilities that requested your imaging first. ? Narrative [...] 10/22/2021 EXAMINATION: XR CHEST PA AND LATERAL (TutumIC) CLINICAL HISTORY: s/p cabg TECHNIQUE: PA and [...] ho have questions please contact the health inspector health care facilities that requested your imaging first. Abdon Dawson MD IMG DX ORDERABLES documented in this encounter Visit Diagnoses Diagnosis Coronary artery disease involving the [place] heart with unstable angina pectoris, unspecified vessel or lesion type documented in this encounter Care Teams Rotary Slicing Machine Operator Relationship Specialty Start Date End Date Jesusita Law MD PCP - General Family Medicine 09/03/[address] [place] [address] documented as of this encounter
--- OUTSIDE RECORDS SUMMARY | 2021-11-22 10:38 | XMS_ITS | Encounter Summary ---
:1945 Author Organization [facility] Address [facility] [address] [place] [address] Care Team Providers Name Role Phone Jesusita Law MD Primary Care Provider [phone] Encounter Details Date Type Department Care Team Description 10/03/2021 Orders Only Cardiac Surgery Abdon Dawson Coronary artery [facility] MD Murali disease involving [facility] [place] [address] unstable angina [phone] CARDIOTHORACIC pectoris, uns pecified SURGERY vessel or lesion type [place] [address] Social History Tobacco Use Types Packs/Day Years [...] Not on filedocumented as of this encounter Results EKG 12 Lead (11/05/2021 10:08 AM EDT) Component Value Ref Range Test Analysis Performed Pathologis t Method Time At Signature Ventricular rate 83 BPM MUSE SYSTEM QRS Duration 140 ms MUSE SYSTEM Q-T Interval 414 ms MUSE SYSTEM QTC Calculated 486 ms MUSE SYSTEM (Bezet) Calculated R [place] 111 degrees MUSE SYSTEM Calculated T [place] 61 degrees MUSE SYSTEM INTERPRETATION Atrial fibrillation [...] SYSTEM XR Chest PA & Lateral (Generic) (10/22/2021 [...] who have questions please contact the health manager medicare marketing that requested your imaging first. ? Electronically signed by: Marilin Rocha MD , [facility] ([phone]), at 10/22/2021 3:37 PM Narrative 10/22/2021 3:37 [...] 10/22/2021 EXAMINATION: XR CHEST PA AND LATERAL (Rue La LaIC) CLINICAL HISTORY: s/p cabg TECHNIQUE: PA and [...] ho have questions please contact the health manager medicare marketing that requested your imaging first. 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
--- OUTSIDE RECORDS SUMMARY | 2021-11-22 10:38 | XMS_ITS | Encounter Summary ---
:1945 [place] [address] Care Team Providers Name Role Phone Jesusita Law MD Primary Care Provider [phone] Encounter Details Date Type Department Care Team Description 10/22/2021 Tech Visit Vascular Lab at [facility] [place] [address] Social History Tobacco Use Types Packs/Day Years [...] Component Value Ref Test Analysis Performed At [facility] Range Method Time Signature VB Text Department: Vascular Surgery Lab VASCUBASE Report Patient: [id number] (RICHY GUERRA) CPT: 10149 Referring Physician: ABDON DAWSON ?? Indications: S/p [...] extremity documented in this encounter Care Teams Employment Service Specialist Relationship Specialty Start Date End Date Jesusita Law MD PCP - General Family Medicine 7/26/[address] [place] [address] documented as of this encounter
--- OUTSIDE RECORDS SUMMARY | 2021-11-22 10:38 | XMS_ITS | Encounter Summary ---
:1945 Author Organization [facility] Address [facility] [address] [place] [address] Care Team Providers Name Role Phone Jesusita Law MD Primary Care Provider [phone] Encounter Details Date Type Department Care Team Description 10/22/2021 Office Visit Vascular Surgery at [facility], Joselito Dalal, Atr ial fibrillation, [facility] unspecified type [facility] [address] [place] VASCULAR SURGERY [address] [place] [address] [phone] Social History Tobacco Use Types Packs/Day Years [...] Should continue anticoagulation per cardiac surgery/cardiology. Joselito Washburn MD, MS Section of Vascular Surgery documented in this encounter Plan of Treatment Not on filedocumented as of this encounter Visit Diagnoses Diagnosis Atrial fibrillation, unspecified type documented in this encounter Care Teams Cosmetic Sales Advisor Relationship Specialty Start Date End Date Jesusita Law MD PCP - General Family Medicine 09/03/[address] [place] [address] documented as of this encounter
--- OUTSIDE RECORDS SUMMARY | 2021-11-22 10:38 | XMS_ITS | Encounter Summary ---
:1945 Author Organization [facility] [place] [address] Care Team Providers Name Role Phone Jesusita Law MD Primary Care Provider [phone] Encounter Details Date Type Department Care Team Description 11/05/2021 Hospital Encounter XRay at [facility] Abdon Dawson Coronary artery [address] [place] [address] Dr Murali MD disease involving [facility] [address] [place] unstable angina [phone] CARDIOTHORACIC pectoris, SURGERY unspecified vessel [place], [place] or lesion type [address] Social History Tobacco Use Types Packs/Day Years [...] 55 mcg route daily. 55 mcg Aerosol, Accord spray 1 spray into both nostrils once [...] Comme nts XR CHEST PA AND Routine 11/05/2021 9:43 AM Coronary artery Res ults for this LATERAL EDT disease involving procedure are in [place] heart with the result s unstable angina section. pectoris, unspecified vessel or lesion type documented in this encounter Results XR Chest PA & Lateral (Generic) (11/05/2021 9:43 AM EDT) Anatomical Region Laterality Modality Chest [...] who have questions please contact the health direct care provider that requested your imaging first. ? Narrative 11/05/2021 2:19 PM EDT EXAMINATION: XR [...] 2021 EXAMINATION: XR CHEST PA AND LATERAL (GE [...] ho have questions please contact the health direct care provider that requested your imaging first. 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
--- OUTSIDE RECORDS SUMMARY | 2021-11-22 10:39 | XMS_ITS | Encounter Summary ---
:1945 Author Organization [facility] [place] [address] Care Team Providers Name Role Phone Jesusita Law MD Primary Care Provider [phone] Reason for Referral Consultation (Routine) - Closed Specialty Diagnoses / Procedures Referred By Contact Refer red To Contact Diagnoses S/P CABG x 4 Abdon Arreguin MD Cardiac Rehab, [facility] CARDIOTHORACIC SURGE RY [address] [place], [place] [id number] [place] [id number] Fax: Referral ID Status Reason Start Date Expiration Date Visits V isits Requested Authorized [id number] Closed Consult, 10/03/2021 04/01/2022 36 36 Test & Treat Diagnostic Test (Routine) - Authorized Specialty Diagnoses / Procedures Referred By Contact Refer red To Contact Diagnoses Arterial embolism of left leg Sheila Thakkar, [facility] Vascular Lab 3v Procedures TONEY, legs, multiple levels [facility] [place] [address] [place] [address] Referral ID Status Reason Start Expiration Visits Visits Date Date Requested Authorized [id number] Authorized Specialty 10/01/2021 10/01/2022 1 1 Service Requested ome Health Care (Routine) - Authorized Specialty Diagnoses / Procedures Referred By Contact Refer red To Contact Diagnoses S/P CABG x 4 Abdon Arreguin MD [facility] [place] CARDIOTHORACIC SURGE RY [address] [place] [address] [place] [address] Fax: Referral ID Status Reason Start Date Expiration Visits Visits Date Requested Authorized [id number] Authorized Consult, 10/03/2021 04/01/2022 999 999 Test & Treat Reason for Visit Auth/Cert Specialty Diagnoses / Procedures Referred By Contact Refer red To Contact Diagnoses 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, unspecified vessel or lesion type cad Abdon Arreguin MD [facility] Procedures PRO CABG, ARTERIAL, SINGLE PRO CABG, ARTERY-VEIN, THREE PRO ENDOSCOPY W/VIDEO-ASST VEIN HARVEST, CABG @CABG, USING ARTERIAL GRAFT;SINGLE ARTERIAL GRAFT (WRVU 33.75) @CABG; 3 VENOUS GRAFTS & ARTERIAL GRAFT (WRVU 10.49) [facility] ENDOSCOPIC HARVEST VEIN(S) FOR CABG (WRV U 0.31) CARDIOTHORACIC [place] [address] Referral ID Status Reason Start Date Expiration Date Visits Requ ested Visits Authorized [id number] 1 1 Encounter Details Date Type Department Care Team Description 09/27/2021 - Hospital Encounter Cardiac Special Abdon Arreguin ronary artery disease involving point lay ira heart with unstable angina pectoris, unspecified vessel or lesion type; 10/03/2021 Care Unit Eveline Carrion MD S/P CABG x 4; [facility] (paro xysmal atrial fibrillation); Hospital CENTER Arterial embolism of left leg [facility] [address] [phone] Social History Tobacco Use Types Packs/Day Years [...] Patient Age: 76 y.o. Birthdate: 1945 Language: Citizen Of [place] Race: White Ethnicity: Not nor Admit Date: [...] below for details) Inpatient Provider Contact Information: [facility] Section of Cardiac Surgery [facility] [place] [facility] [address] FAX [phone] Discharge Diagnoses (Hospital Problems) Primary Diagnoses: CAD Secondary Diagnoses: LLE Ischemia s/p urgent left SFA embolectomy Chronic AF Active Hospital Problems Diagnosis ??? 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 PRO CABG, ARTERIAL, SINGLE N/A 09/27/2021 @CABG, USING ARTERIAL GRAFT;SINGLE ARTERIAL GRAFT (WRVU 33.75) performed by Abdon Arreguin MD at [facility] MAIN OR ??? PRO CABG, ARTERY-VEIN, THREE N/A 09/27/2021 @CABG; 3 VENOUS GRAFTS & ARTERIAL GRAFT (WRVU 10.49) performed by Abdon Arreguin MD at [facility] MAIN OR ??? PRO EMBLC/THRMBC FEMORAL POPLITEAL AORTO-ILIAC ARTERY Left 09/29/2021 EMBOLECTOMY OR THROMBECTOMY, FEMOROPOPLITEAL, AORTOILIAC ARTERY BY LEG INCISION (WRVU 19.48) performed by Joselito Washburn MD at [facility] MAIN OR ??? PRO ENDOSCOPY W/VIDEO-ASST VEIN HARVEST, CABG N/A 09/27/2021 ENDOSCOPIC HARVEST VEIN(S) FOR CABG (WRVU 0.31) performed by Abdon Arreguin MD at [facility] MAIN OR Prior To Admission Medications Medications [...] (NASACORT or NASACORT OTC) 55 mcg Aerosol, [place] 1 spray by Nasal route daily. 55 [...] s/p CABGx4 [address] was admitted to [facility] on 09/27/2021 via the Same Day [...] not take or discontinue any prescription or bqav-mjw-mtmhwmq medications without asking your doctor or pharmacist [...] Abdon Arreguin and/or the Cardiac Surgery Physician Staffing Manager Team may be reached at . [...] Dr. Abdon Arreguin. You may use a [place] Track or treadmill but avoid any pulling [...] friends, go to a movie, go to amish, etc. Heavy activities: No hunting, skiing, jogging, snow shoveling, snowmobiling, lawn mowing, swimming, golf or tennis until after your return appointment with the surgeon. Do not ride motorcycles, ATAngie's List's tractors or horses. Avoid the use of [...] should resume a low fat, low cholesterol, [place] Heart Association Diet. Driving: No driving until [...] while being managed by your PCP and/or Corn Shucker. For future medication refills, please refer to your PCP and/or Corn Shucker after your discharge from our service. Thank [...] the outpatient Phase 2 Cardiac Rehabilitation at [facility]. The patient agrees to a referral to this program. The referral will be sent at discharge and the patient should be contacted by the Program within 1- 2 weeks from discharge. Future Appointments and Orders Future Appointments and Orders Future Appointments Provider Department Dept Phone 10/22/2021 1:45 PM [facility] DX ROOM 1 XRay at [facility] Arrive at: Dictaphone Operator Area [phone] Please go to Dictaphone Operator Area ([facility] Location). 10/22/2021 2:30 PM Abdon Arreguin MD Cardiac Surgery at [facility] Arrive at: Dictaphone Operator Area [phone] 11/05/2021 9:45 AM [facility] ED ROOM 1 XRay at [facility] Arrive at: Dictaphone Operator Area [phone] Please go to Dictaphone Operator Area ([facility] Location). 11/05/2021 10:40 AM Abdon Arreguin MD Cardiac Surgery at [facility] Arrive at: Dictaphone Operator Area [phone] Future Orders Complete By Expires TONEY, legs, multiple levels [VAS8 Custom] 10/08/2021 (Approximate) 11/01/2021 Process Instructions: There is no in-house vascular laborer plumbing available on weeknights (5pm-8am), weekends, or holidays. IF THIS IS A REQUEST FOR AN EMERGENT STUDY DURING THOSE HOURS, please have the senior provider responsible for the patient page the Vascular Surgery Fellow/Senior Resident information security associate to discuss options. Scheduling Instructions: Questions: Indication for study/signs & symptoms: s/p LLE embolectomy Question to be answered: ?perfusion Preferred location?: [facility] Clinics Referral to Cardiac Rehab [[id number] Custom] As directed Process Instructions: If no progress note charted, please enter Clinical details in comments. Scheduling Instructions: Questions: My question or request is: CABG- cardiac rehab at [facility] Referral to Home Health [[id number] Custom] As directed Process Instructions: If no progress note charted, please enter Clinical details in comments. Scheduling Instructions: Comments: Please evaluate [address]y [address] for admission to Home Health. [address] [place] [phone] (home) Date of : 1945 DOCUMENTATION FOR VNA SERVICES (INCLUDING THOSE PATIENTS WITH MEDICARE COVERAGE REQUIRING HOME VNA SERVICES AND/OR HOSPICE SERVICES) PATIENT'S LOCATION: [address] [facility] [address] (home) No relevant phone numbers on file. Convex Grinder Operator's Name: Self In discussion with the attending physician, it is certified that this patient is under their care and that they, or a Nurse Practitioner, or Physician Staffing Manager who is working directly with them, [...] need for servicesas follows: HOME HEALTH AGENCY: [facility] in [place], [place] and [phone] RN orders: Cardiopulmonary assessment, incisional assessment, assess [...] issues please call the Cardiology Office at [phone] FOR MEDICARE ONLY: In discussion with the [...] OR AFTER 10/07/21 Signed: Leilani Be PA-C [facility] Section of Cardiac Surgery [facility] [place] [facility] [address] FAX [phone] Date: 10/03/2021 CC: Jesusita Law MD Unknown [...] not take or discontinue any prescription or yvdn-eir-svzmynz medications without asking your doctor or pharmacist [...] Abdon Arreguin and/or the Cardiac Surgery Physician Staffing Manager Team may be reached at . [...] Dr. Abdon Arreguin. You may use a [place] Track or treadmill but avoid any pulling [...] friends, go to a movie, go to amish, etc. Heavy activities: No hunting, skiing, jogging, snow shoveling, snowmobiling, lawn mowing, swimming, golf or tennis until after your return appointment with the surgeon. Do not ride motorcycles, ATAngie's List's tractors or horses. Avoid the use of [...] should resume a low fat, low cholesterol, [place] Heart Association Diet. Driving: No driving until [...] while being managed by your PCP and/or Corn Shucker. For future medication refills, please refer to your PCP and/or Corn Shucker after your discharge from our service. Thank [...] OTC) 55 mcg Aerosol, spray into both [place] nostrils once a day as needed for [...] Number PT: 2 Patient profile: Richy Garcia Lococarla??is a 76 y.o.??male??with PMH of CAD with [...] in recliner post-d/c 3. Pt. to perform nrk-yk-jferi transfers with modified independence using a front [...] plan as stated. Time IN / OUT: 8552-4662 Total Minutes, Physical Therapy: 36 Fely Mejias PT , DPT Pager: [phone] Physical Therapy Inpatient Rehabilitation Department Leilani Be [...] PCI performed by Vinod Hassan MD at [facility] CATH [facility] ??? PRO CABG, ARTERIAL, SINGLE N/A 09/27/2021 @CABG, USING ARTERIAL GRAFT;SINGLE ARTERIAL GRAFT (WRVU 33.75) performed by Abdon Arreguin MD at [facility] MAIN OR ??? PRO CABG, ARTERY-VEIN, THREE N/A 09/27/2021 @CABG; 3 VENOUS GRAFTS & ARTERIAL GRAFT (WRVU 10.49) performed by Abdon Arreguin MD at [facility] MAIN OR ??? PRO EMBLC/THRMBC FEMORAL POPLITEAL AORTO-ILIAC ARTERY Left 09/29/2021 EMBOLECTOMY OR THROMBECTOMY, FEMOROPOPLITEAL, AORTOILIAC ARTERY BY LEG INCISION (WRVU 19.48) performed by Joselito Washburn MD at [facility] MAIN OR ??? 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 WNL/WFL ?? corrective lenses evp global multimedia sales Communication: WFL Range of motion, strength, coordination: [...] Occupational Therapy: 40 (1 low complexity eval (9488-7081)) OT Evaluation Code Rationale: ?? Diagnosis & [...] and measurable assessment of functional outcome. Pager: [phone] Arlene Simms OT 10/02/2021 Occupational Therapy Rehabilitation [...] ??? PACEMAKER IMPLANT ? ? PRG CATH [facility] LEFT HEART CATH & ARTS W/INJ & ANGIO IMG S&I N/A 09/10/2021 CORONARY ANGIOGRAPHY; W LHC,POSSIBLE PCI performed by Vinod Hassan MD at [facility] CATH [facility] ??? PRO CABG, ARTERIAL, SINGLE N/A 09/27/2021 @CABG, USING ARTERIAL GRAFT;SINGLE ARTERIAL GRAFT (WRVU 33.75) performed by Abdon Arreguin MD at [facility] MAIN OR ??? PRO CABG, ARTERY-VEIN, THREE N/A 09/27/2021 @CABG; 3 VENOUS GRAFTS & ARTERIAL GRAFT (WRVU 10.49) performed by Abdon Arreguin MD at [facility] MAIN OR ??? PRO EMBLC/THRMBC FEMORAL POPLITEAL AORTO-ILIAC ARTERY Left 09/29/2021 EMBOLECTOMY OR THROMBECTOMY, FEMOROPOPLITEAL, AORTOILIAC ARTERY BY LEG INCISION (WRVU 19.48) performed by Joselito Washburn MD at [facility] MAIN OR ??? PRO ENDOSCOPY W/VIDEO-ASST VEIN HARVEST, CABG N/A 09/27/2021 ENDOSCOPIC HARVEST VEIN(S) FOR CABG (WRVU 0.31) performed by Abdon Arreguin MD at [facility] MAIN OR Active Non-Hospital Problems Diagnosis ??? [...] standing without exhibiting loss ofbalance & no frkyad-pn-nboinlj observed during gait Therapeutic Exercise: 6 repetitions [...] mobilization & ambulation with nursing & mobility chemical research technician staff. Discharge Recommendations: Based on the [...] to sternal precautions 3. Pt. to perform ewu-wd-jwhsv transfers with modified independence using a front [...] in this evaluation. Time IN / OUT: 0493-8189 Total Minutes, Physical Therapy: 40 Fely Mejias DPT Pager: [phone] Physical Therapy Inpatient Rehabilitation Department AkteSam PA - 10/01/2021 11:46 AM EDT Cardiac [...] Ext: warm, 1-2+ LE edema. +signals Incisions: LOG RAFTER CDI Tubes/Lines/Drains: PIV I/O last 3 completed [...] where referrals are placed. Provided patient with [facility] Star Quality Rating for Home care Patient requests referral to : [facility] [place] [address] and Expected date of discharge: 10/04/2021. Referral routed to the Call Center Operations Manager for matching with agency/vendor and to provide [...] PT - 09/30/2021 4:34 PM EDT 09/30/21 3594 Evaluation & Treatment Document Type contact Total [...] manage pt in CTICU protocol. Respiratory Pager# [phone] documented in this encounter H&P Notes Abdon [...] List Diagnosis ??? 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 No [...] List Diagnosis ??? 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, unspecified vesselor [...] ??? PACEMAKER IMPLANT ? ? PRG CATH [facility] LEFT HEART CATH & ARTS W/INJ & ANGIO IMG S&I N/A 09/10/2021 CORONARY ANGIOGRAPHY; W [facility],POSSIBLE PCI performed by Vinod Hassan MD at [facility]ATH [facility] Family History: History reviewed. No [...] & Follow-up Care: Contact information for follow-up [facility], [address] [address] Transportation: family or friend will provide Functional [...] Type: *No Product type* / Secondary Insurance: [email or web address] LIABILITY Prescription Coverage: Yes This plan was formulated with input from patient and team. All are in agreement with plan. I have verbally reviewed Medicare Discharge Rights with patient. Patient verbalizes understanding ofright to appeal this discharge if feeling not medically ready. Offered a copy of this letter. Stacey GAMEZ RN Phone: [phone] Pager: [phone] Consult Note - Krista Godoy RN - 10/02/2021 11:04 AM EDT [facility] CARDIAC REHABILITATION [address] was seen today regarding participation in the outpatient Phase 2 Cardiac Rehabilitation at [facility]. The patient agrees to a referral [...] Is home with VNA services Agency Referrals: [facility] in [place], [place] and [phone] Transportation: Family Barriers to discharge: None Plan going forward: Care Management will continue to follow and assist with discharge planning and coordination of care as indicated. Anticipated Date of Discharge: 10/06/2021 Office of Care Management Surgery Team Worship Pastor [email or web address] Pager #[phone] Consult Note - Sheila Thakkar MD - 10/01/2021 10:13 PM EDT [facility] Department of Surgery Inpatient Consult Note History [...] Thakkar MD - 09/30/2021 12:59 PM EDT [facility] Department of Surgery Inpatient Consult Note History [...] Operative Note Patient Name: Richy Street : [id number] MR#: [id number] Case Date: 09/29/2021 Surgeon: Surgeon(s) and Role: [...] Loss: 352 mL Specimens removed during surgery: [facility] Fluids: Intraprocedure Crystalloid Total Intake Lactated Ringers [...] Washburn MD - 09/29/2021 1:35 PM EDT [facility] Operative Note Patient Name: Richy Street : [id number] MR#: [id number] Case Date: 09/29/2021 Surgeon: Surgeon(s) and Role: [...] with vessel loops. The patient was given 99149 units of intravenous heparin, which was allowed [...] Gaspar MD - 09/29/2021 11:07 AM EDT [facility] Department of Surgery Inpatient Consult Note Consultation [...] ??? PACEMAKER IMPLANT ? ? PRG CATH [facility] LEFT HEART CATH & ARTS W/INJ & ANGIO IMG S&I N/A 09/10/2021 CORONARY ANGIOGRAPHY; W LHC,POSSIBLE PCI performed by Vinod Hassan MD at [facility] CATH [facility] ??? PRO CABG, ARTERIAL, SINGLE N/A 09/27/2021 @CABG, USING ARTERIAL GRAFT;SINGLE ARTERIAL GRAFT (WRVU 33.75) performed by Abdon Arreguin MD at [facility] MAIN OR ??? PRO CABG, ARTERY-VEIN, THREE N/A 09/27/2021 @CABG; 3 VENOUS GRAFTS & ARTERIAL GRAFT (WRVU 10.49) performed by Abdon Arreguin MD at [facility] MAIN OR ??? PRO ENDOSCOPY W/VIDEO-ASST VEIN HARVEST, CABG N/A 09/27/2021 ENDOSCOPIC HARVEST VEIN(S) FOR CABG (WRVU 0.31) performed by Abdon Arreguin MD at [facility] MAIN OR Medications No current facility-administered medications [...] (NASACORT or NASACORT OTC) 55 mcg Aerosol, [place] 1 spray by Nasal route daily. 55 [...] If you have any questions, please page [phone] (day/week) [phone] (night/weekend). [x] Consult service to continue to [...] surrogate would be surrogate decision maker per [place] surrogate decision making law. (Only good for 180 days) Any patient receiving care in [place] must abide by [place] law. The hierarchy for surrogate decision making [...] (i) The agent with financial power of window glass installer or a conservator appointed in accordance with [...] none Current DME: none Home Address as: [address] [place] [phone] Social & Family Supports: All names listed below confirmed with patient as current and correct Extended Emergency Contact Information Primary Emergency Contact: Vy Street Address: [address] [place] [phone] [facility] Mobile Relation: Spouse Current Care Provided by: [...] Health/Prescription Coverage: Primary Insurance: MEDICARE Secondary Insurance: [facility] Secondary Insurance? (Only Medicare A&B): Yes ; Prescription Coverage: Yes Preferred Pharmacy: [facility] Status: Patient is a : No Primary Care Provider: Jesusita Law MD [phone] Patient/Caregiver Goals of Treatment: Potential Needs for [...] PM EDT 09/29/2021 [address] Garcia Charlie 1945 [id number] Preoperative Diagnosis: Coronary artery disease Unstable Angina Postoperative Diagnosis: Coronary artery diseaseUnstable Angina Procedure: CABG times 4: SOTO to LAD, SVG to diag and om, svg to rca. Endoscopic vein harvest Surgeon: Abdon Arreguin M.D. Staffing Manager: Mateo thornton Anesthesia: General endotracheal anesthesia [...] All counts were correct. OR Attestation - Abodn Arreguin MD - 09/27/2021 10:16 AM EDT Attestation: Case Date: 09/27/2021 - 09/28/2021 I performed this procedure without the involvement of a resident. Abdon Arreguin MD 09/29/2021 Brief Op Note - Abdon Arreguin MD - 09/27/2021 10:09 AM EDT Brief Operative Note Patient Name: Richy Street : [id number] MR#: [id number] Case Date: 09/27/2021 - 09/28/2021 Surgeon: Surgeon(s) and Role: * Abdon Arreguin MD - Primary * Sam Kate PA - Physician Staffing Manager * Davie Galindo PA - Physician Staffing Manager Preoperative diagnosis: cad Postoperative diagnosis: CAD [...] documented in this encounter Plan of Treatment Scheduled Referrals Name Type Priority Associated Diagnoses [...] disease involving p rocedure are in OR point lay ira heart with the result s unstable angina section. pectoris, unspecified vessel or lesion type ENDOSCOPIC HARVEST 09/27/2021 12:51 Coronary artery VEIN(S) FOR CABG (WRVU PM EDT disease involving 0.31) point lay ira heart with unstable angina pectoris, unspecified vessel or lesion type @CABG; 3 VENOUS GRAFTS 09/27/2021 12:51 Coronary arter y & ARTERIAL GRAFT (WRVU PM EDT disease involving 10.49) point lay ira heart with unstable angina pectoris, unspecified vessel or lesion type @CABG, USING ARTERIAL 09/27/2021 12:51 Coronary artery GRAFT;SINGLE ARTERIAL PM EDT disease involving GRAFT (WRVU 33.75) point lay ira heart with unstable angina pectoris, unspecified vessel or lesion type PREPARE RBC STAT 09/27/2021 12:05 Results for this PM EDT procedure are i n the results section. POCT GLUCOSE Routine 09/27/2021 11:37 Results for this AM EDT procedure are i n the results section. ENDOSCOPIC HARVEST Routine 09/27/2021 10:15 Coronary artery VEIN(S) FOR CABG AM EDT disease involving point lay ira heart with unstable angina pectoris, unspecified vessel or lesion type @CABG,USING ARTERIAL Routine 09/27/2021 10:15 Coronary artery GRAFT;SINGLE ARTERIAL AM EDT disease involving GRAFT point lay ira heart with unstable angina pectoris, unspecified vessel or lesion type @CABG;3 VENOUS GRAFTS & Routine 09/27/2021 10:15 Coronary meghan ry ARTERIAL GRAFT AM EDT disease involving point lay ira heart with unstable angina pectoris, unspecified vessel or lesion type LAB SCAN 09/27/2021 12:00 Results for this AM EDT procedure are i n the results section. documented in this encounter Results TONEY, legs, multiple levels (10/22/2021 10:44 AM EDT) Component Value Ref Test Analysis Performed At [facility] Range Method Time Signature VB Text Department: Vascular Surgery Lab VASCUBASE Report Patient: [id number] (LOCOO, RICHY) CPT: 59426 Referring Physician: ABDON ARREGUIN ?? Indications: S/p [...] Signature POC Glucose 114 65 - 199 EVELINE SANFORDAUDREY mg/dL [facility] Comment: Supplemental ranges: <140 mg/dL before meals <180 mg/dL all other times of the day Specimen Anatomical Collection Method Collection Time Receive d Time (Source) Location / / Volume Laterality Blood 10/03/2021 11:35 10/03/2021 AM EDT 11:35 AM EDT Abdon Arreguin MD POINT OF CARE TEST ORDERABLE S Performing Organization Address City/State/[place] [address] POCT Glucose (10/03/2021 7:23 AM EDT) athologist Signature POC Glucose 122 65 - 199 [facility] mg/dL [facility] Comment: Supplemental ranges: <140 mg/dL before meals <180 mg/dL all other times of the day Specimen Anatomical Collection Method Collection Time Receive d Time (Source) Location / / Volume Laterality Blood 10/03/2021 7:23 AM 2 7:23 EDT AM EDT Abdon Arreguin MD POINT OF CARE TEST ORDERABLE S Performing Organization Address City/[facility]/[place] [address] Heparin (unfractionated) Level (10/03/2021 4:26 AM EDT) athologist Signature Heparin UFH 0.27 IU/mL [facility] Comment: Heparin (anti-Xa) levels should [...] Organization Address City/State/[place] [address] (ABNORMAL) Differential, Automated (10/03/2021 4:26 AM EDT) Patholo gist Method Time Signature Neutrophils % 63.0 % [facility] Neutr Abs (ANC) 6.33 (H) 1.70 - [facility] 6.10 [facility] x10(3)/[facility] LABORATORY Lymphocytes % 18.6 % [facility] LABORATORY Lymphocytes Abs 1.9 0.9 - 3.2 [facility] x10(3)/[facility] LABORATORY Monocytes % 11.3 % [facility] LABORATORY Monocyte Abs 1.1 (H) 0.3 - 0.9 [facility] x10(3)/[facility] LABORATORY Eosinophils % 5.9 % [facility] LABORATORY Eosinophils Abs 0.6 (H) 0.0 - 0.4 [facility] x10(3)/[facility] LABORATORY Basophils % 0.5 % [facility] LABORATORY Basophils Abs 0.0 0.0 - 0.1 [facility] x10(3)/[facility] LABORATORY Immature Gran % 0.70 % [facility] LABORATORY Comment: Immature granulocytes(IG's)percentage an d absolute count will include metamyelocytes, myelocytes, and promyelo cytes. Blood smears from CBCs yielding IG's will be scanned manually for concor dance. If this scan disagrees with the automated IG or if promyelocytes are not ed, a manual differential will be performed. Anna Gran Abs 0.07 (H) 0.00 - 0.04 x10(3)/[facility] LABORATORY Specimen Anatomical Collection Method Collection Time Receive d Time (Source) Location / / Volume Laterality Blood 10/03/2021 4:26 AM 4:41 EDT AM EDT Resulting Agency Comment Spec In Lab Leilani CONTRERAS HEMATOLOGY ORDERABLES Performing Organization Address City/State/Z[place] [address] (ABNORMAL) Hemogram (10/03/2021 4:26 AM EDT) Analysis Performed At [facility] logist Time Signature WBC 10.0 (H) 4.0 - 9.5 [facility] x10(3)/[facility] LABORATORY RBC 3.35 (L) 4.58 - [facility] 5.54 [facility] x10(6)/[facility] LABORATORY Hemoglobin 9.8 (L) 13.7 [facility] 16.5 g/dL [facility] LABORATORY Hematocrit 29.4 (L) 40.5 - [facility] 48.5 % [facility] LABORATORY MCV 87.8 82.9 - [facility] 93.1 [facility] LABORATORY MCH 29.3 27.5 - [facility] 32.1 pg [facility] LABORATORY MCHC 33.3 32.0 - [facility] 35.7 g/dL [facility] LABORATORY Platelets 238 145 - 357 [facility] x10(3)/[facility] LABORATORY RDWSD 46.2 (H) 36.0 - [facility] 45.0 [facility] LABORATORY RDWCV 14.4 (H) 11.4 - [facility] 13.8 % [facility] LABORATORY MPV 11.0 7.6 - 12.9 [facility] LABORATORY nRBC % Auto 0.0 % [facility] LABORATORY nRBC Abs Auto 0.000 0.000 - [facility] 0.000 [facility] x10(3)/[facility] LABORATORY Specimen Anatomical Collection Method Collection Time Receive d Time (Source) Location / / Volume Laterality Blood 10/03/2021 4:26 AM 4:41 EDT AM EDT Resulting Agency Comment Spec In Lab Leilani CONTRERAS HEMATOLOGY ORDERABLES Performing Organization Address City/State/ZIP [place] [address] (ABNORMAL) Prothrombin Time (10/03/2021 4:26 AM EDT) P athologist Signature PT 13.7 (H) 9.4 - 12.5 [facility] LABORATORY INR 1.2 [facility] LABORATORY Comment: An INR <2.0 indicates [...] Arreguin MD HEMATOLOGY ORDERABLES Performing Organization Address City/[facility]/[place] [address] Potassium (10/03/2021 4:26 AM EDT) athologist Signature Potassium 4.1 3.5 - 5.0 [facility] mmol/L [facility] LABORATORY Comment: Please note: ??Patients [...] Arreguin MD CHEMISTRY ORDERABLES Performing Organization Address [facility]/ZIP Code Phon e Number [address] POCT Glucose (10/02/2021 8:15 PM EDT) athologist Signature POC Glucose 151 65 - [address] [address] mg/dL [facility] LABORATORY Comment: Supplemental ranges: <140 mg/dL before meals <180 mg/dL all other times of the day Specimen Anatomical Collection Method Collection Time Receive d Time (Source) Location / / Volume Laterality Blood 10/02/2021 8:15 PM 2 8:15 EDT PM EDT Abdon Arreguin MD POINT OF CARE TEST ORDERABLE S Performing Organization Address City/[facility]/[place] [address] POCT Glucose (10/02/2021 4:14 PM EDT) athologist Signature POC Glucose 140 65 - 199 [facility] mg/dL [facility] LABORATORY Comment: Supplemental ranges: <140 mg/dL before meals <180 mg/dL all other times of the day Specimen Anatomical Collection Method Collection Time Receive d Time (Source) Location / / Volume Laterality Blood 10/02/2021 4:14 PM 2 4:14 EDT PM EDT Abdon Arreguin MD POINT OF CARE TEST ORDERABLE S Performing Organization Address City/State/[place] [address] Potassium (10/02/2021 2:28 PM EDT) athologist Signature Potassium 4.2 3.5 - 5.0 [facility]/L [facility] LABORATORY Comment: Please note: ??Patients [...] Arreguin MD CHEMISTRY ORDERABLES Performing Organization Address City/[facility]/[place] [address] POCT Glucose (10/02/2021 10:55 AM EDT) athologist Signature POC Glucose 153 65 - 199 [facility] mg/dL [facility] LABORATORY Comment: Supplemental ranges: <140 mg/dL before meals <180 mg/dL all other times of the day Specimen Anatomical Collection Method Collection Time Receive d Time (Source) Location / / Volume Laterality Blood 10/02/2021 10:55 10/02/2021 AM EDT 10:55 AM EDT Abdon Arreguin MD POINT OF CARE TEST ORDERABLE S Performing Organization Address City/State/[place] [address] POCT Glucose (10/02/2021 7:33 AM EDT) athologist Signature POC Glucose 143 65 - 199 [facility] mg/dL [facility] LABORATORY Comment: Supplemental ranges: <140 mg/dL before meals <180 mg/dL all other times of the day Specimen Anatomical Collection Method Collection Time Receive d Time (Source) Location / / Volume Laterality Blood 10/02/2021 7:33 AM 2 7:33 EDT AM EDT Abdon Arreguin MD POINT OF CARE TEST ORDERABLE S Performing Organization Address [facility] [place] [address] Heparin (unfractionated) Level (10/02/2021 3:59 AM EDT) athologist Signature Heparin UFH 0.24 IU/mL [facility] LABORATORY Comment: Heparin (anti-Xa) levels should [...] Arreguin MD HEMATOLOGY ORDERABLES Performing Organization Address City/[facility]/[place] [address] (ABNORMAL) Differential, Automated (10/02/2021 3:59 AM EDT) Patholo gist Method Time Signature Neutrophils % 62.1 % [facility] LABORATORY Neutr Abs (ANC) 6.87 (H) 1.70 - [facility] 6.10 [facility] x10(3)/[facility] LABORATORY Lymphocytes % 18.4 % [facility] LABORATORY Lymphocytes Abs 2.0 0.9 - 3.2 [facility] x10(3)/[facility] LABORATORY Monocytes % 12.9 % [facility] LABORATORY Monocyte Abs 1.4 (H) 0.3 - 0.9 [facility] x10(3)/[facility] LABORATORY Eosinophils % 5.1 % [facility] LABORATORY Eosinophils Abs 0.6 (H) 0.0 - 0.4 [facility] x10(3)/[facility] LABORATORY Basophils % 0.9 % [facility] LABORATORY Basophils Abs 0.1 0.0 - 0.1 [facility] x10(3)/[facility] LABORATORY Immature Gran % 0.60 % [facility] LABORATORY Comment: Immature granulocytes(IG's)percentage an d absolute count will include metamyelocytes, myelocytes, and promyelo cytes. Blood smears from CBCs yielding IG's will be scanned manually for concor dance. If this scan disagrees with the automated IG or if promyelocytes are not ed, a manual differential will be performed. Anna Gran Abs 0.07 (H) 0.00 - 0.04 x10(3)/[facility] LABORATORY Specimen Anatomical Collection Method Collection Time Receive d Time (Source) Location / / Volume Laterality Blood 10/02/2021 3:59 AM 4:25 EDT AM EDT Resulting Agency Comment Spec In Lab Leilani CONTRERAS HEMATOLOGY ORDERABLES Performing Organization Address City/State/ZIP [place] [address] (ABNORMAL) Hemogram (10/02/2021 3:59 AM EDT) Analysis Performed At [facility] logist Time Signature WBC 11.1 (H) 4.0 - 9.5 [facility] x10(3)/[facility] LABORATORY RBC 3.62 (L) 4.58 - [facility] 5.54 [facility] x10(6)/[facility] LABORATORY Hemoglobin 10.3 (L) 13.7 - [facility] 16.5 g/dL [facility] LABORATORY Hematocrit 31.7 (L) 40.5 - [facility] 48.5 % [facility] LABORATORY MCV 87.6 82.9 - [facility] 93.1 [facility] LABORATORY MCH 28.5 27.5 - [facility] 32.1 pg [facility] LABORATORY MCHC 32.5 32.0 - [facility] 35.7 g/dL [facility] LABORATORY Platelets 190 145 - 357 [facility] x10(3)/[facility] LABORATORY RDWSD 45.9 (H) 36.0 - [facility] 45.0 [facility] LABORATORY RDWCV 14.4 (H) 11.4 - [facility] 13.8 % [facility] LABORATORY MPV 11.1 7.6 - 12.9 [facility] LABORATORY nRBC % Auto 0.0 % [facility] LABORATORY nRBC Abs Auto 0.000 0.000 - [facility] 0.000 [facility] x10(3)/[facility] LABORATORY Specimen Anatomical Collection Method Collection Time Receive d Time (Source) Location / / Volume Laterality Blood 10/02/2021 3:59 AM 4:25 EDT AM EDT Resulting Agency Comment Spec In Lab Leilani CONTRERAS HEMATOLOGY ORDERABLES Performing Organization Address City/State/ZIP [place] [address] (ABNORMAL) Prothrombin Time (10/02/2021 3:59 AM EDT) P athologist Signature PT 12.6 (H) 9.4 - 12.5 [facility] LABORATORY INR 1.1 [facility] LABORATORY Comment: An INR <2.0 indicates [...] Arreguin MD HEMATOLOGY ORDERABLES Performing Organization Address City/[facility]/[place] [address] (ABNORMAL) Potassium (10/02/2021 3:59 AM EDT) athologist Signature Potassium 3.4 (L) 3.5 - 5.0 [facility] mmol/L [facility] LABORATORY Comment: Please note: ??Patients [...] Arreguin MD CHEMISTRY ORDERABLES Performing Organization Address [facility]/[place] [address] POCT Glucose (10/01/2021 7:43 PM EDT) athologist Signature POC Glucose 152 65 - [address] [address] [address] mg/dL [facility] LABORATORY Comment: Supplemental ranges: <140 mg/dL before meals <180 mg/dL all other times of the day Specimen Anatomical Collection Method Collection Time Receive d Time (Source) Location / / Volume Laterality Blood 10/01/2021 7:43 PM 2 7:43 EDT PM EDT Abdon Arreguin MD POINT OF CARE TEST ORDERABLE S Performing Organization Address City/[facility]/[place] [address] POCT Glucose (10/01/2021 5:08 PM EDT) athologist Signature POC Glucose 131 65 - 199 [facility] mg/dL [facility] LABORATORY Comment: Supplemental ranges: <140 mg/dL before meals <180 mg/dL all other times of the day Specimen Anatomical Collection Method Collection Time Receive d Time (Source) Location / / Volume Laterality Blood 10/01/2021 5:08 PM 5:08 EDT PM EDT Abdon Arreguin MD POINT OF CARE TEST ORDERABLE S Performing Organization Address City/State/ZIP Code Phon e Number [address] POCT Glucose (10/01/2021 11:49 AM EDT) athologist Signature POC Glucose 196 65 - 199 [facility] mg/dL [facility] LABORATORY Comment: Supplemental ranges: <140 mg/dL before meals <180 mg/dL all other times of the day Specimen Anatomical Collection Method Collection Time Receive d Time (Source) Location / / Volume Laterality Blood 10/01/2021 11:49 10/01/2021 AM EDT 11:49 AM EDT Abdon Arreguin MD POINT OF CARE TEST ORDERABLE S Performing Organization Address City/State/ZIP Code Phon e Number [address] POCT Glucose (10/01/2021 7:54 AM EDT) athologist Signature POC Glucose 159 65 - 199 [facility] mg/dL [facility] LABORATORY Comment: Supplemental ranges: <140 mg/dL before meals <180 mg/dL all other times of the day Specimen Anatomical Collection Method Collection Time Receive d Time (Source) Location / / Volume Laterality Blood 10/01/2021 7:54 AM 7:54 EDT AM EDT Abdon Arreguin MD POINT OF CARE TEST ORDERABLE S Performing Organization Address City/State/[place] [address] Heparin (unfractionated) Level (10/01/2021 3:25 AM EDT) athologist Signature Heparin UFH 0.22 IU/mL [facility] LABORATORY Comment: Heparin (anti-Xa) levels should [...] Organization Address City/State/ZIP Code Phon e Number [place] [phone] HOSPITAL LAB[address]ATORY Drive (ABNORMAL) Differential, Automated (10/01/2021 3:25 AM EDT) [facility] gist Method Time Signature Neutrophils % 72.5 % [facility] LABORATORY Neutr Abs (ANC) 9.30 (H) 1.70 - [facility] 6.10 [facility] x10(3)/[facility] LABORATORY Lymphocytes % 12.3 % [facility] LABORATORY Lymphocytes Abs 1.6 0.9 - 3.2 [facility] x10(3)/[facility] LABORATORY Monocytes % 11.2 % [facility] LABORATORY Monocyte Abs 1.4 (H) 0.3 - 0.9 [facility] x10(3)/[facility] LABORATORY Eosinophils % 3.0 % [facility] LABORATORY Eosinophils Abs 0.4 0.0 - 0.4 [facility] x10(3)/[facility] LABORATORY Basophils % 0.5 % [facility] LABORATORY Basophils Abs 0.1 0.0 - 0.1 [facility] x10(3)/[facility] LABORATORY Immature Gran % 0.50 % [facility] LABORATORY Comment: Immature granulocytes(IG's)percentage an d absolute count will include metamyelocytes, myelocytes, and promyelo cytes. Blood smears from CBCs yielding IG's will be scanned manually for concor dance. If this scan disagrees with the automated IG or if promyelocytes are not ed, a manual differential will be performed. Anna Gran Abs 0.06 (H) 0.00 - 0.04 x10(3)/[facility] LABORATORY Specimen Anatomical Collection Method Collection Time Receive d Time (Source) Location / / Volume Laterality Blood 10/01/2021 3:25 AM 3:57 EDT AM EDT Resulting Agency Comment Spec In Lab Leilani CONTRERAS HEMATOLOGY ORDERABLES Performing Organization Address City/State/ZIP Code Phon e Number [place] [phone] HOSPITAL LABORATORY Drive (ABNORMAL) Hemogram (10/01/2021 3:25 AM EDT) Analysis Performed At Patho logist Time Signature WBC 12.8 (H) 4.0 - 9.5 [facility] x10(3)/[facility] LABORATORY RBC 3.36 (L) 4.58 [facility] 5.54 [facility] x10(6)/[facility] LABORATORY Hemoglobin 9.8 (L) 13.7 - [facility] 16.5 g/dL [facility] LABORATORY Hematocrit 29.4 (L) 40.5 - [facility] 48.5 % [facility] LABORATORY MCV 87.5 82.9 - [facility] 93.1 [facility] LABORATORY MCH 29.2 27.5 - [facility] 32.1 pg [facility] LABORATORY MCHC 33.3 32.0 - [facility] 35.7 g/dL [facility] LABORATORY Platelets 170 145 - 357 [facility] x10(3)/[facility] LABORATORY RDWSD 45.3 (H) 36.0 - [facility] RDWCV 14.2 (H) 11.4 - [facility] 13.8 % [facility] LABORATORY MPV 11.2 7.6 - 12.9 [facility] nRBC % Auto 0.0 % [facility] LABORATORY nRBC Abs Auto 0.000 0.000 - [facility] 0.000 [facility] x10(3)/[facility] LABORATORY Specimen Anatomical Collection Method Collection Time Receive d Time (Source) Location / / Volume Laterality Blood 10/01/2021 3:25 AM 2 3:57 EDT AM EDT Resulting Agency Comment Spec In Lab Leilani CONTRERAS HEMATOLOGY ORDERABLES Performing Organization Address City/[facility]/[place] [address] Prothrombin Time (10/01/2021 3:25 AM EDT) P athologist Signature PT 12.4 9.4 - 12.5 [facility] LABORATORY INR 1.1 [facility] LABORATORY Comment: An INR <2.0 indicates [...] Organization Address City/State/[place] [address] (ABNORMAL) Potassium (10/01/2021 3:25 AM EDT) P athologist Signature Potassium 3.4 (L) 3.5 - 5.0 [facility] mmol/L [facility] LABORATORY Comment: Please note: ??Patients [...] Arreguin MD CHEMISTRY ORDERABLES Performing Organization Address City/[facility]/[place] [address] Heparin (unfractionated) Level (09/30/2021 8:23 PM EDT) athologist Signature Heparin UFH 0.24 IU/mL [facility] LABORATORY Comment: Heparin (anti-Xa) levels should [...] Arreguin MD HEMATOLOGY ORDERABLES Performing Organization Address City/[facility]/ZIP Code Phon e Number [address] POCT Glucose (09/30/2021 7:42 PM EDT) athologist Signature POC Glucose 188 65 - 199 [facility] mg/dL [facility] LABORATORY Comment: Supplemental ranges: <140 mg/dL before meals <180 mg/dL all other times of the day Specimen Anatomical Collection Method Collection Time Receive d Time (Source) Location / / Volume Laterality Blood 09/30/2021 7:42 PM 2 7:42 EDT PM EDT Abdon Arreguin MD POINT OF CARE TEST ORDERABLE S Performing Organization Address City/State/[place] [address] POCT Glucose (09/30/2021 4:22 PM EDT) athologist Signature POC Glucose 164 65 - 199 [facility] mg/dL [facility] LABORATORY Comment: Supplemental ranges: <140 mg/dL before meals <180 mg/dL all other times of the day Specimen Anatomical Collection Method Collection Time Receive d Time (Source) Location / / Volume Laterality Blood 09/30/2021 4:22 PM 2 4:22 EDT PM EDT Abdon Arreguin MD POINT OF CARE TEST ORDERABLE S Performing Organization Address City/[facility]/[place] [address] Heparin (unfractionated) Level (09/30/2021 1:48 PM EDT) athologist Signature Heparin UFH 0.23 IU/mL [facility] LABORATORY Comment: Heparin (anti-Xa) levels should [...] Organization Address City/State/ZIP Code Phon e Number [address] POCT Glucose (09/30/2021 11:39 AM EDT) athologist Signature POC Glucose 158 65 - [address] [facility] [address] mg/dL [facility] LABORATORY Comment: Supplemental ranges: <140 mg/dL before meals <180 mg/dL all other times of the day Specimen Anatomical Collection Method Collection Time Receive d Time (Source) Location / / Volume Laterality Blood 09/30/2021 11:39 09/30/2021 AM EDT 11:39 AM EDT Abdon Arreguin MD POINT OF CARE TEST ORDERABLE S Performing Organization Address City/State/ZIP Code Phon e Number [address] ECHOCARDIOGRAM LMTD W CONTRAST [...] 10:39 AMBP: 128/89 mmHg ? Patient Location: [facility] C450 A : 1945 ? Height: 170 cm ? Account: [id number] Age: 76 yrs ? Weight: 115 kg Gender: Male ?BSA: 2.2 m2 Ordering Physician: KALLIE^ABDON^P Referring Physician: Abdon Arreguin Performed By: Azar Argueta, ACS, [facility] Exam Location: [facility]. Interpretation Summary Patient is in [...] echo for comparis on. Procedure Limited - [id number]. Image enhancement Optis on was used for [...] 09/10 10:39 AMBP: 128/89 mmHg Patient Location: [address] : 1945 Height: 170 cm Account: [id number] Age: 76 yrs Weight: 115 kg Gender: Male BSA: 2.2 m2 Ordering Physician: [place] Referring Physician: Abdon Arreguin Performed By: Azar Argueta, [facility], [facility] Exam Location: [facility]. Interpretation Summary Patient is in [...] echo for comparis on. Procedure Limited - [id number]. Image enhancement Optis on was used for [...] who have questions please contact the health care companion that requested your imaging first. ? Electronically signed by: Marilin Rocha MD , [facility] ([phone]), at 09/30/2021 11:39 AM Narrative 09/30/2021 11:39 [...] ho have questions please contact the health care companion that requested your imaging first. Electronically signed by: Marilin Rocha MD , [facility] ([phone]), at 09/30/2021 11:39 AM Abdon Arreguin MD IMG DX ORDERABLES Prothrombin Time (09/30/2021 9:12 AM EDT) athologist Signature PT 12.2 9.4 - 12.5 [facility] LABORATORY INR 1.1 [facility] LABORATORY Comment: An INR <2.0 indicates [...] Organization Address City/State/ZIP [place] [address] (ABNORMAL) Differential, Automated (09/30/2021 3:25 AM EDT) Patholo gist Method Time Signature Neutrophils % 80.1 % [facility] LABORATORY Neutr Abs (ANC) 11.70 (H) 1.70 - [facility] 6.10 [facility] x10(3)/[facility] L LABORATORY Lymphocytes % 9.9 % [facility] LABORATORY Lymphocytes Abs 1.4 0.9 - 3.2 [facility] x10(3)/[facility] LABORATORY Monocytes % 9.5 % [facility] LABORATORY Monocyte Abs 1.4 (H) 0.3 - 0.9 [facility] x10(3)/[facility] LABORATORY Eosinophils % 0.0 % [facility] LABORATORY Eosinophils Abs 0.0 0.0 - 0.4 [facility] x10(3)/[facility] LABORATORY Basophils % 0.1 % [facility] LABORATORY Basophils Abs 0.0 0.0 - 0.1 [facility] x10(3)/[facility] LABORATORY Immature Gran % 0.40 % [facility] LABORATORY Comment: Immature granulocytes(IG's)percentage an d absolute count will include metamyelocytes, myelocytes, and promyelo cytes. Blood smears from CBCs yielding IG's will be scanned manually for concor dance. If this scan disagrees with the automated IG or if promyelocytes are not ed, a manual differential will be performed. Anna Gran Abs 0.06 (H) 0.00 - 0.04 x10(3)/[facility] LABORATORY Specimen Anatomical Collection Method Collection Time Receive d Time (Source) Location / / Volume Laterality Blood 09/30/2021 3:25 AM 3:41 EDT AM EDT Resulting Agency Comment Spec In Lab Che Hayden MD HEMATOLOGY ORDERABLES Performing Organization Address City/State/[place] [address] (ABNORMAL) Hemogram (09/30/2021 3:25 AM EDT) Analysis Performed At Patho logist Time Signature WBC 14.6 (H) 4.0 - 9.5 [facility] x10(3)/[facility] LABORATORY RBC 3.65 (L) 4.58 [facility].54 [facility] x10(6)/[facility] LABORATORY Hemoglobin 10.6 (L) 13.7 - [facility] 16.5 g/dL [facility] LABORATORY Hematocrit 32.5 (L) 40.5 - EVELINE AUDREY 48.5 % [facility] LABORATORY MCV 89.0 82.9 - [facility] 93.1 [facility] LABORATORY MCH 29.0 27.5 - EVELINE AUDREY 32.1 pg [facility] LABORATORY MCHC 32.6 32.0 - EVELINE AUDREY 35.7 g/dL [facility] LABORATORY Platelets 143 (L) 145 - 357 [facility] x10(3)/[facility] LABORATORY RDWSD 45.8 (H) 36.0 - [facility] 45.0 [facility] LABORATORY RDWCV 14.1 (H) 11.4 - [facility] 13.8 % [facility] LABORATORY MPV 10.6 7.6 - 12.9 [facility] LABORATORY nRBC % Auto 0.0 % [facility] LABORATORY nRBC Abs Auto 0.000 0.000 - [facility] 0.000 [facility] x10(3)/[facility] LABORATORY Specimen Anatomical Collection Method Collection Time Receive d Time (Source) Location / / Volume Laterality Blood 09/30/2021 3:25 AM 3:41 EDT AM EDT Resulting Agency Comment Spec In Lab Che Hayden MD HEMATOLOGY ORDERABLES Performing Organization Address City/State/ZIP [place] [address] (ABNORMAL) Basic Metabolic Panel (non-fasting) (09/30/2021 3:25 AM EDT) P athologist Signature Glucose Lvl 142 65 - 199 [facility] mg/dL [facility] LABORATORY Comment: Diabetes: >=200 mg/dL plus symp toms BUN 14 10 - 20 mg/dL [facility] LABORATORY Creatinine 0.71 (L) 0.80 - 1.50 mg/dL [facility] Sodium 138 135 - 145 mmol/L [facility] [...] estions. Chloride 104 98 - 107 mmol/L [facility] LABORATORY CO2 24 22 - 31 mmol/L [facility] LABORATORY Anion Gap 10 5 - 15 mmol/L [facility] LABORATORY Calcium 8.3 (L) 8.5 - 10.5 mg/dL [facility] LABORATORY Comment: result rechecked-sf Estimated GFR 96 >=60 mL/min/1.73 m?? [facility] LABORATORY Comment: This patient's estimated GFR [...] Organization Address City/State/Z[place] [address] (ABNORMAL) Differential, Automated (09/29/2021 8:59 PM EDT) [facility] Method Time Signature Neutrophils % 89.4 % [facility] LABORATORY Neutr Abs (ANC) 14.75 (H) 1.70 - [facility] 6.10 [facility] x10(3)/[facility] L LABORATORY Lymphocytes % 4.2 % [facility] LABORATORY Lymphocytes Abs 0.7 (L) 0.9 - 3.2 [facility] x10(3)/[facility] LABORATORY Monocytes % 5.6 % [facility] LABORATORY Monocyte Abs 0.9 0.3 - 0.9 [facility] x10(3)/[facility] LABORATORY Eosinophils % 0.1 % [facility] LABORATORY Eosinophils Abs 0.0 0.0 - 0.4 [facility] x10(3)/[facility] LABORATORY Basophils % 0.2 % [facility] LABORATORY Basophils Abs 0.0 0.0 - 0.1 [facility] x10(3)/[facility] LABORATORY Immature Gran % 0.50 % [facility] LABORATORY Comment: Immature granulocytes(IG's)percentage an d absolute count will include metamyelocytes, myelocytes, and promyelo cytes. Blood smears from CBCs yielding IG's will be scanned manually for concor dance. If this scan disagrees with the automated IG or if promyelocytes are not ed, a manual differential will be performed. Anna Gran Abs 0.08 (H) 0.00 - 0.04 x10(3)/[facility] LABORATORY Specimen Anatomical Collection Method Collection Time Receive d Time (Source) Location / / Volume Laterality Blood 09/29/2021 8:59 PM 9:10 EDT PM EDT Resulting Agency Comment Spec In Lab Sam CONTRERAS HEMATOLOGY ORDERABLES Performing Organization Address City/State/ZIP [place] [address] (ABNORMAL) Hemogram (09/29/2021 8:59 PM EDT) Analysis Performed At Patho logist Time Signature WBC 16.5 (H) 4.0 - 9.5 [facility] x10(3)/[facility] LABORATORY RBC 3.88 (L) 4.58 - [facility] 5.54 [facility] x10(6)/[facility] LABORATORY Hemoglobin 11.1 (L) 13.7 - [facility] 16.5 g/dL [facility] LABORATORY Hematocrit 33.9 (L) 40.5 - EVELINE VENTURA 48.5 % [facility] LABORATORY MCV 87.4 82.9 - EVELINE VENTURA 93.1 [facility] LABORATORY MCH 28.6 27.5 - EVELINE VENTURA 32.1 pg [facility] LABORATORY MCHC 32.7 32.0 - EVELINE VENTURA 35.7 g/dL [facility] LABORATORY Platelets 145 145 - 357 EVELINE DOVER x10(3)/[facility] LABORATORY RDWSD 45.8 (H) 36.0 - EVELINE SANFORDAUDREY 45.0 [facility] LABORATORY RDWCV 14.3 (H) 11.4 - [facility] 13.8 % [facility] LABORATORY MPV 11.0 7.6 - 12.9 [facility] LABORATORY nRBC % Auto 0.0 % [facility] LABORATORY nRBC Abs Auto 0.000 0.000 - [facility] 0.000 [facility] x10(3)/[facility] LABORATORY Specimen Anatomical Collection Method Collection Time Receive d Time (Source) Location / / Volume Laterality Blood 09/29/2021 8:59 PM 2 9:10 EDT PM EDT Resulting Agency Comment Spec In Lab Sam CONTRERAS HEMATOLOGY ORDERABLES Performing Organization Address City/State/ZIP Code Phon e Number [place] [id number] HOSPITAL LABORATORY Drive (ABNORMAL) BLOOD GAS 2 ARTERIAL (09/29/2021 1:32 PM EDT) Analysis Performed At Patho logist Time Signature pH Art 7.36 7.35 - [facility] 7.45 [facility] LABORATORY pCO2 Art 39 35 - 45 [facility] mmHg [facility] LABORATORY pO2 Art 209 (H) 85 - 104 [facility] mmHg [facility] LABORATORY HCO3 Art 21.2 20.0 - EVELINE SANFORDAUDREY 26.0 [facility] mmol/L [facility] LABORATORY BE Art -4.0 (L) -3.0 - 3.0 [facility] mmol/L [facility] LABORATORY Hgb Blood Gas 11.5 (L) 13.7 - EVELINE SANFORDAUDREY 16.5 g/dL [facility] LABORATORY O2HB Art 98.5 (H) 94.0 - [facility] 97.0 % [facility] LABORATORY COHB Art 0.4 % [facility] LABORATORY Comment: Nonsmokers: 0.5-1.5% COHB Smokers: Variable, but usually less than 10% Toxic: 20-30% COHB Lethal: Greater than 60% COHB METHB Art 0.3 <=1.5 % [facility] LABORATORY Na Whole Blood 134 (L) 135 - 145 mmol/L [facility] LABORATORY K Whole Blood 3.8 3.5 - 5.0 mmol/L [facility] LABORATORY Comment: Please note: Patients with WBC >100,000 may have falsely elevated Potassium levels. Contact the Clinical Chemistry L aboratory if there are any questions. ICa Whole Blood 1.12 (L) 1.15 - 1.33 mmol/L [facility] LABORATORY Comment: Note: ??Total bilirubin higher than 20 m g/dL may lead to falsely low ionized calcium. CL Whole Blood 104 98 - 107 mmol/L [facility] LABORATORY Gluc Whole Bld 134 65 - 199 mg/dL [facility] LABORATORY Comment: Diabetes: >=200 mg/dL plus symp toms. Lactate WB 1.4 0.5 - 2.2 mmol/L [facility] LABORATORY FIO2 Art 60 % [facility] LABORATORY Flow Art 1.0 LPM [facility] LABORATORY PF Ratio Art [address] [facility] LABORATORY Temp Art 38.2 Celsius [facility] LABORATORY Specimen Anatomical Collection Method Collection Time Receive d Time (Source) Location / / Volume Laterality Blood 09/29/2021 1:32 PM 2 1:32 EDT PM EDT Abdon Arreguin MD CHEMISTRY ORDERABLES Performing Organization Address City/State/[place] [address] Arterial Duplex Leg, Unil (09/29/2021 12:08 PM EDT) Component Value Ref Test Analysis Performed At [facility] gist Range Method Time Signature VB Text Department: Vascular Surgery Lab VASCUBASE Report Patient: [id number] (GRAMMO, RICHY) CPT: 61670 Referring Physician: JOSELITO WASHBURN ?? Phone: Indications: [...] athologist Signature Potassium 3.9 3.5 - 5.0 [facility] mmol/L [facility] LABORATORY Comment: Please note: ??Patients [...] Organization Address City/State/[place] [address] POCT Glucose (09/28/2021 4:29 PM EDT) athologist Signature POC Glucose 134 65 - 199 EVELINE SANFORDAUDREY mg/dL [facility] LABORATORY Comment: Supplemental ranges: <140 mg/dL before meals <180 mg/dL all other times of the day Specimen Anatomical Collection Method Collection Time Receive d Time (Source) Location / / Volume Laterality Blood 09/28/2021 4:29 PM 4:29 EDT PM EDT Abdon Arreguin MD POINT OF CARE TEST ORDERABLE S Performing Organization Address City/State/[place] [address] POCT Glucose (09/28/2021 12:19 PM EDT) athologist Signature POC Glucose 149 65 - 199 EVELINE SANFORDAUDREY mg/dL [facility] LABORATORY Comment: Supplemental ranges: <140 mg/dL before meals <180 mg/dL all other times of the day Specimen Anatomical Collection Method Collection Time Receive d Time (Source) Location / / Volume Laterality Blood 09/28/2021 12:19 09/28/2021 PM EDT 12:19 PM EDT Abdon Arreguin MD POINT OF CARE TEST ORDERABLE S Performing Organization Address City/State/[place] [address] POCT Glucose (09/28/2021 10:57 AM EDT) athologist Signature POC Glucose 138 65 - 199 EVELINE AUDREY mg/dL [facility] LABORATORY Comment: Supplemental ranges: <140 mg/dL before meals <180 mg/dL all other times of the day Specimen Anatomical Collection Method Collection Time Receive d Time (Source) Location / / Volume Laterality Blood 09/28/2021 10:57 09/28/2021 AM EDT 10:57 AM EDT Abdon Arreguin MD POINT OF CARE TEST ORDERABLE S Performing Organization Address City/State/[place] [address] POCT Glucose (09/28/2021 9:49 AM EDT) athologist Signature POC Glucose 131 65 - 199 EVELINE SANFORDAUDREY mg/dL [facility] LABORATORY Comment: Supplemental ranges: <140 mg/dL before meals <180 mg/dL all other times of the day Specimen Anatomical Collection Method Collection Time Receive d Time (Source) Location / / Volume Laterality Blood 09/28/2021 9:49 AM 2 9:49 EDT AM EDT Abdon Arreguin MD POINT OF CARE TEST ORDERABLE S Performing Organization Address City/State/ZIP Code Phon e Number [address] POCT Glucose (09/28/2021 8:16 AM EDT) athologist Signature POC Glucose 144 65 - 199 [facility] AUDRE[facility] mg/dL [facility] LABORATORY Comment: Supplemental ranges: <140 mg/dL before meals <180 mg/dL all other times of the day Specimen Anatomical Collection Method Collection Time Receive d Time (Source) Location / / Volume Laterality Blood 09/28/2021 8:16 AM 2 8:16 EDT AM EDT Abdon Arreguin MD POINT OF CARE TEST ORDERABLE S Performing Organization Address City/State/ZIP Code Phon e Number [address] POCT Glucose (09/28/2021 7:00 AM EDT) athologist Signature POC Glucose 144 65 - 199 [facility] mg/dL [facility] LABORATORY Comment: Supplemental ranges: <140 mg/dL before meals <180 mg/dL all other times of the day Specimen Anatomical Collection Method Collection Time Receive d Time (Source) Location / / Volume Laterality Blood 09/28/2021 7:00 AM 2 7:00 EDT AM EDT Abdon Arreguin MD POINT OF CARE TEST ORDERABLE S Performing Organization Address City/State/ZIP Code Phon e Number [address] POCT Glucose (09/28/2021 6:41 AM EDT) athologist Signature POC Glucose 128 65 - 199 EVELINE MO[place]IC[place]OCK mg/dL [facility] LABORATORY Comment: Supplemental ranges: <140 mg/dL before meals <180 mg/dL all other times of the day Specimen Anatomical Collection Method Collection Time Receive d Time (Source) Location / / Volume Laterality Blood 09/28/2021 6:41 AM 2 6:41 EDT AM EDT Abdon Arreguin MD POINT OF CARE TEST ORDERABLE S Performing Organization Address City/State/[place] [address] POCT Glucose (09/28/2021 5:56 AM EDT) athologist Signature POC Glucose 154 65 - 199 EVELINE MOJIC[place]OCK mg/dL [facility] LABORATORY Comment: Supplemental ranges: <140 mg/dL before meals <180 mg/dL all other times of the day Specimen Anatomical Collection Method Collection Time Receive d Time (Source) Location / / Volume Laterality Blood 09/28/2021 5:56 AM 2 5:56 EDT AM EDT Abdon Arreguin MD POINT OF CARE TEST ORDERABLE S Performing Organization Address City/State/ZIP Code Phon e Number [address] POCT Glucose (09/28/2021 4:58 AM EDT) athologist Signature POC Glucose 150 65 - 199 EVELINE AUDREY mg/dL [facility] LABORATORY Comment: Supplemental ranges: <140 mg/dL before meals <180 mg/dL all other times of the day Specimen Anatomical Collection Method Collection Time Receive d Time (Source) Location / / Volume Laterality Blood 09/28/2021 4:58 AM 2 4:58 EDT AM EDT Abdon Arreguin MD POINT OF CARE TEST ORDERABLE S Performing Organization Address City/State/ZIP Code Phon e Number [address] POCT Glucose (09/28/2021 3:58 AM EDT) athologist Signature POC Glucose 153 65 - 199 EVELINE SANFORDAUDREY mg/dL [facility] LABOR[facility]ORY Comment: Supplemental ranges: <140 mg/dL before meals <180 mg/dL all other times of the day Specimen Anatomical Collection Method Collection Time Receive d Time (Source) Location / / Volume Laterality Blood 09/28/2021 3:58 AM 3:58 EDT AM EDT Abdon Arreguin MD POINT OF CARE TEST ORDERABLE S Performing Organization Address City/State/ZIP [place] [address] (ABNORMAL) Differential, Automated (09/28/2021 2:15 AM EDT) [facility] Method Time Signature Neutrophils % 87.6 % [facility] LABORATORY Neutr Abs (ANC) 11.58 (H) 1.70 - [facility] 6.10 [facility] x10(3)/[facility] LABORATORY Lymphocytes % 5.2 % [facility] LABORATORY Lymphocytes Abs 0.7 (L) 0.9 - 3.2 [facility] x10(3)/[facility] LABORATORY Monocytes % 6.7 % [facility] LABORATORY Monocyte Abs 0.9 0.3 - 0.9 [facility] x10(3)/[facility] LABORATORY Eosinophils % 0.0 % [facility] LABORATORY Eosinophils Abs 0.0 0.0 - 0.4 [facility] x10(3)/[facility] LABORATORY Basophils % 0.2 % [facility] LABORATORY Basophils Abs 0.0 0.0 - 0.1 [facility] x10(3)/[facility] LABORATORY Immature Gran % 0.30 % [facility] LABORATORY Comment: Immature granulocytes(IG's)percentage an d absolute count will include metamyelocytes, myelocytes, and promyelo cytes. Blood smears from CBCs yielding IG's will be scanned manually for concor dance. If this scan disagrees with the automated IG or if promyelocytes are not ed, a manual differential will be performed. Anna Gran Abs 0.04 0.00 - 0.04 x10(3)/[facility] LABORATORY Specimen Anatomical Collection Method Collection Time Receive d Time (Source) Location / / Volume Laterality Blood 09/28/2021 2:15 AM 2 2:27 EDT AM EDT Resulting Agency Comment Spec In Lab Davie CONTRERAS HEMATOLOGY ORDERABLES Performing Organization Address City/State/Z[place] [address] (ABNORMAL) Hemogram (09/28/2021 2:15 AM EDT) Analysis Performed At Patho logist Time Signature WBC 13.2 (H) 4.0 - 9.5 [facility] LABORATORY RBC 3.73 (L) 4.58 - [facility] 5.54 [facility] x10(6)/[facility] LABORATORY Hemoglobin 10.9 (L) 13.7 - [facility] 16.5 g/dL [facility] LABORATORY Hematocrit 33.1 (L) 40.5 - [facility] 48.5 % [facility] LABORATORY MCV 88.7 82.9 - [facility] 93.1 [facility] LABORATORY MCH 29.2 27.5 - [employer] 32.1 pg [facility] LABORATORY MCHC 32.9 32.0 - EVELINE AUDREY 35.7 g/dL [facility] LABORATORY Platelets 145 145 - 357 [facility] x10(3)/[facility] LABORATORY RDWSD 46.3 (H) 36.0 - [facility] 45.0 [facility] LABORATORY RDWCV 14.3 (H) 11.4 - [facility] 13.8 % [facility] LABORATORY MPV 10.3 7.6 - 12.9 [facility] nRBC % Auto 0.0 % [facility] LABORATORY nRBC Abs Auto 0.000 0.000 - EVELINE AUDREY 0.000 [facility] x10(3)/[facility] LABORATORY Specimen Anatomical Collection Method Collection Time Receive d Time (Source) Location / / Volume Laterality Blood 09/28/2021 2:15 AM 2 2:27 EDT AM EDT Resulting Agency Comment Spec In Lab Davie CONTRERAS HEMATOLOGY ORDERABLES Performing Organization Address City/State/Z[place] [address] (ABNORMAL) Basic Metabolic Panel (non-fasting) (09/28/2021 2:15 AM EDT) P athologist Signature Glucose Lvl 193 65 - 199 [facility] mg/dL [facility] LABORATORY Comment: Diabetes: >=200 mg/dL plus symp toms BUN 13 10 - 20 mg/dL [facility] LABORATORY Creatinine 0.73 (L) 0.80 - 1.50 mg/dL [facility] LABORATORY Sodium 139 135 - 145 mmol/L [facility] LABORATORY Potassium 4.3 3.5 - 5.0 mmol/L [facility] LABORATORY Comment: Please note: ??Patients with WBC >100,00 0 may have falsely elevated Potassium levels. ??For accurate Potassium quantif ication in these patients send serum separator tube (gold top) for subsequent determinations. ??Contact the Clinical Chemistry Laboratory if there are any qu estions. Chloride 108 (H) 98 - 107 mmol/L [facility] LABORATORY CO2 21 (L) 22 - 31 mmol/L [facility] LABORATORY Anion Gap 10 5 - 15 mmol/L [facility] LABORATORY Calcium 7.5 (L) 8.5 - 10.5 mg/dL [facility] LABORATORY Estimated GFR 95 >=60 mL/min/1.73 m?? [facility] LABORATORY Comment: This patient's estimated GFR [...] Address City/State/ZIP Code Phon e Number EVELINE [address] (ABNORMAL) Troponin (09/28/2021 2:15 AM EDT) athologist Signature Troponin-T 0.31 (H) 0.00 - EVELINE VENTURA 0.00 ng/mL [facility] LABORATORY Comment: The 99th percentile for Troponin T is le ss than 0.01 ng/mL, any detectable cTnT concentration using this assay should be considered elevated. According to the third universal definit ion of myocardial infarction the following criteria with a clinical prese ntation consistent with acute myocardial ischemia meets the diagnosis for a myocardial infarction (IA). Detection of a rise and/or fall of [...] additional sample may be indicated. Reference: Third [place] Definition of Myocardial Infarction. Journal of the [place] [employer] 2012;60:1581-98 Specimen Anatomical Collection Method Collection Time Receive d Time (Source) Location / / Volume Laterality Blood 09/28/2021 2:15 AM 2 2:27 EDT AM EDT Resulting Agency Comment Spec In Lab Abdon Arreguin MD CHEMISTRY ORDERABLES Performing Organization Address City/State/[place] [address] POCT Glucose (09/28/2021 2:12 AM EDT) athologist Signature POC Glucose 183 65 - 199 EVELINE AUDREY mg/dL [facility] LABORATORY Comment: Supplemental ranges: <140 mg/dL before meals <180 mg/dL all other times of the day Specimen Anatomical Collection Method Collection Time Receive d Time (Source) Location / / Volume Laterality Blood 09/28/2021 2:12 AM 2:12 EDT AM EDT Abdon Arreguin MD POINT OF CARE TEST ORDERABLE S Performing Organization Address City/State/[place] [address] POCT Glucose (09/28/2021 12:13 AM EDT) athologist Signature POC Glucose 182 65 - 199 EVELINE AUDREY mg/dL [facility] LABOR[facility]ORY Comment: Supplemental ranges: <140 mg/dL before meals <180 mg/dL all other times of the day Specimen Anatomical Collection Method Collection Time Receive d Time (Source) Location / / Volume Laterality Blood 09/28/2021 12:13 09/28/2021 AM EDT 12:13 AM EDT Abdon Arreguin MD POINT OF CARE TEST ORDERABLE S Performing Organization Address City/[facility]/ZIP Code Phon e Number [address] POCT Glucose (09/27/2021 10:07 PM EDT) athologist Signature POC Glucose 184 65 - 199 EVELINE AUDREY mg/dL [facility] Comment: Supplemental ranges: <140 mg/dL before meals <180 mg/dL all other times of the day Specimen Anatomical Collection Method Collection Time Receive d Time (Source) Location / / Volume Laterality Blood 09/27/2021 10:07 09/27/2021 PM EDT 10:07 PM EDT Abdon Arreguin MD POINT OF CARE TEST ORDERABLE S Performing Organization Address City/[facility]/ZIP Code Phon e Number [address] (ABNORMAL) Hemoglobin (09/27/2021 9:30 PM EDT) athologist Signature Hemoglobin 11.2 (L) 13.7 - EVELINE AUDRYE 16.5 g/dL [facility] Specimen Anatomical Collection Method Collection Time Receive d Time (Source) Location / / Volume Laterality Blood 09/27/2021 9:30 PM 2 9:34 EDT PM EDT Resulting Agency Comment Spec In Lab Abdon Arreguin MD HEMATOLOGY ORDERABLES Performing Organization Address City/[facility]/[place] [address] Potassium (09/27/2021 9:30 PM EDT) P athologist Signature Potassium 4.2 3.5 - 5.[address] [facility] [address] mmol/L [facility] Comment: Please note: ??Patients [...] Arreguin MD CHEMISTRY ORDERABLES Performing Organization Address City/[facility]/[place] [address] (ABNORMAL) BLOOD GAS 2 ARTERIAL (09/27/2021 7:45 PM EDT) Analysis Performed At Patho logist Time Signature pH Art 7.31 (L) 7.35 - [facility] 7.45 [facility] pCO2 Art 37 35 - 45 [facility] AUDREY mmHg [facility]ORY pO2 Art 117 (H) 85 - 104 [facility] mmHg [facility] HCO3 Art 18.3 (L) 20.0 - EVELINE [employer] 26.0 [facility] mmol/L HOSPITAL LABORATORY BE Art -7.9 (L) -3.0 - 3.0 [facility] mmol/L [facility] Hgb Blood Gas 12.7 (L) 13.7 - EVELINE AUDREY 16.5 g/dL [facility] O2HB Art 96.8 94.0 - EVELINE [employer] 97.0 % [facility] COHB Art 0.4 % [facility] LAB[facility] Comment: Nonsmokers: 0.5-1.5% COHB Smokers: Variable, but usually less than 10% Toxic: 20-30% COHB Lethal: Greater than 60% COHB METHB Art 0.7 <=1.5 % [facility] Na Whole Blood 140 135 - 145 mmol/L [facility] K Whole Blood 3.9 3.5 - 5.0 mmol/L [facility] Comment: Please note: Patients with WBC >100,000 may have falsely elevated Potassium levels. Contact the Clinical Chemistry L aboratory if there are any questions. ICa Whole Blood 1.10 (L) 1.15 - 1.33 mmol/L [facility] Comment: Note: ??Total bilirubin higher than 20 m g/dL may lead to falsely low ionized calcium. CL Whole Blood 108 (H) 98 - 107 mmol/L [facility] Gluc Whole Bld 173 65 - 199 mg/dL [facility] Comment: Diabetes: >=200 mg/dL plus symp toms. Lactate WB 1.7 0.5 - 2.2 mmol/L [facility] FIO2 Art 40 % [facility] PF Ratio Art [address] [facility] LABORATORY Specimen Anatomical Collection Method Collection Time Receive d Time (Source) Location / / Volume Laterality Blood 09/27/2021 7:45 PM 7:45 EDT PM EDT Abdon Arreguin MD CHEMISTRY ORDERABLES Performing Organization Address City/State/ZIP [place] [address] POCT Glucose (09/27/2021 7:19 PM EDT) athologist Signature POC Glucose 149 65 - 199 [facility] mg/dL [facility] Comment: Supplemental ranges: <140 mg/dL before meals <180 mg/dL all other times of the day Specimen Anatomical Collection Method Collection Time Receive d Time (Source) Location / / Volume Laterality Blood 09/27/2021 7:19 PM 2 7:19 EDT PM EDT Abdon Arreguin MD POINT OF CARE TEST ORDERABLE S Performing Organization Address City/State/ZIP [place] [address] XR Chest One View [...] who have questions please contact the health care companion that requested your imaging first. ? Narrative [...] ho have questions please contact the health care companion that requested your imaging first. Abdon Arreguin MD IMG DX ORDERABLES (ABNORMAL) BLOOD GAS 2 ARTERIAL (09/27/2021 5:58 PM EDT) athologist Signature pH Art 7.29 7.35 - [facility] (Critical) 7.45 [facility] Comment: Noted by electronic instrument trades worker. pCO2 Art 44 35 - [address] [facility]OR[facility]ORY pO2 Art 462 (H) 85 - 104 mmHg [facility] HCO3 Art 20.7 20.0 - 26.0 mmol/L [facility] BE Art -5.9 (L) -3.0 - 3.0 mmol/L [facility] Hgb Blood Gas 12.9 (L) 13.7 - 16.5 g/dL [facility] O2HB Art 98.5 (H) 94.0 - 97.0 % [facility] COHB Art 0.4 % [facility] Comment: Nonsmokers: 0.5-1.5% COHB Smokers: Variable, but usually less than 10% Toxic: 20-30% COHB Lethal: Greater than 60% COHB METHB Art 0.7 <=1.5 % [facility] Na Whole Blood 138 135 - 145 mmol/L [facility] K Whole Blood 3.9 3.5 - 5.0 mmol/L [facility] Comment: Please note: Patients with WBC >100,000 may have falsely elevated Potassium levels. Contact the Clinical Chemistry L aboratory if there are any questions. ICa Whole Blood 1.15 1.15 - 1.33 mmol/L [facility] Comment: Note: ??Total bilirubin higher than 20 m g/dL may lead to falsely low ionized calcium. CL Whole Blood 105 98 - 107 mmol/L [facility] Gluc Whole Bld 166 65 - 199 mg/dL [facility] Comment: Diabetes: >=200 mg/dL plus symp toms. Lactate WB 1.6 0.5 - 2.2 mmol/L [facility] FIO2 Art 100 % [facility] PF Ratio Art [address] [facility] Specimen Anatomical Collection Method Collection Time Receive d Time (Source) Location / / Volume Laterality Blood 09/27/2021 5:58 PM 5:58 EDT PM EDT Abdon Arreguin MD CHEMISTRY ORDERABLES Performing Organization Address City/State/ZIP [place] [address] EKG 12 Lead (09/27/2021 5:47 PM EDT) Component Value Ref Range Test Analysis Performed Pathologis t Method Time At Signature Ventricular rate 80 BPM MUSE SYSTEM Atrial Rate 80 BPM MUSE SYSTEM P-R Interval 298 ms MUSE SYSTEM QRS Duration 148 ms MUSE SYSTEM Q-T Interval 482 ms MUSE SYSTEM QTC Calculated 555 ms MUSE SYSTEM (Bezet) Calculated P [place] 102 degrees MUSE SYSTEM Calculated R [place] 102 degrees MUSE SYSTEM Calculated T [place] -46 degrees MUSE SYSTEM INTERPRETATION Suspect arm [...] Arreguin MD ECG ORDERABLES Performing Organization Address City/[facility]/ZIP Code Phon e Number MUSE SYSTEM (ABNORMAL) Thrombin time (09/27/2021 4:37 PM EDT) athologist Signature Thrombin Time 19 (H) 10 - 17 [facility] LABORATORY Comment: OR Result called [...] Castanon MD HEMATOLOGY ORDERABLES Performing Organization Address City/[facility]/[place] [address] Fibrinogen (09/27/2021 4:37 PM EDT) athologist Signature Fibrinogen 247 200 - 393 [facility] mg/dL [facility] Comment: OR Result called [...] Castanon MD HEMATOLOGY ORDERABLES Performing Organization Address [facility]/[place] [address] APTT (09/27/2021 4:37 PM EDT) P athologist Signature PTT 33 25 - 37 sec [facility] LABOR[facility]ORY Comment: OR Result called by [...] Castanon MD HEMATOLOGY ORDERABLES Performing Organization Address [facility]/ZIP Code Phon e Number [place] [phone] (ABNORMAL) Prothrombin Time (09/27/2021 4:37 PM EDT) P athologist Signature PT 17.8 (H) 9.4 - 12.5 [facility] LABORATORY Comment: OR Result called by ?? PARSAD OR Result s read back by: ? Lyndsay Richard at 2021-09-27 16:57:25 INR 1.6 [facility] LABORATORY Comment: OR Result called [...] Organization Address City/State/ZIP [place] [address] (ABNORMAL) Hemogram (09/27/2021 4:37 PM EDT) athologist Signature WBC 17.4 (H) 4.0 - 9.5 [facility] x10(3)/[facility] LABORATORY RBC 3.34 (L) 4.58 - [facility] 5.54 [facility] x10(6)/[facility] LABORATORY Hemoglobin 9.6 (L) 13.7 - [facility] 16.5 g/dL [facility] LABORATORY Hematocrit 29.5 (L) 40.5 - [facility] 48.5 % [facility]ORATORY Comment: This result has been called to NAYLA BARR by Heladio Ordonez on 09 27 2021 at 1648, and has been read back. MCV 88.3 82.9 - 93.1 [facility] LABORATORY MCH 28.7 27.5 - 32.1 pg [facility] LABORATORY MCHC 32.5 32.0 - 35.7 g/dL [facility] LABORATORY Platelets 152 145 - 357 x10(3)/[facility] LABORATORY RDWSD 44.7 36.0 - 45.0 [facility] LABORATORY RDWCV 13.9 (H) 11.4 - 13.8 % [facility] LABORATORY MPV 10.3 7.6 - 12.9 [facility] LABORATORY nRBC % Auto 0.0 % [facility] LABORATORY nRBC Abs Auto 0.000 0.000 - 0.000 x10(3)/[facility] LABORATORY Specimen Anatomical Collection Method Collection Time Receive d Time (Source) Location / / Volume Laterality Blood 09/27/2021 4:37 PM 2 4:43 EDT PM EDT Resulting Agency Comment Spec In Lab Henny Castanon MD HEMATOLOGY ORDERABLES Performing Organization Address City/State/Z[place] [address] (ABNORMAL) BLOOD GAS 2 ARTERIAL (09/27/2021 4:33 PM EDT) Analysis Performed At Patho logist Time Signature pH Art 7.36 7.35 - [facility] 7.45 [facility] LABORATORY pCO2 Art 41 35 - 45 [facility] mmHg [facility] LABORATORY pO2 Art 165 (H) 85 - 104 [facility] LABORATORY HCO3 Art 22.6 20.0 - [facility] 26.0 [facility] mmol/L [facility] LABORATORY BE Art -2.9 -3.0 - 3.0 [facility] mmol/L [facility] LABORATORY Hgb Blood Gas 10.3 (L) 13.7 - [facility] 16.5 g/dL [facility] O2HB Art 98.0 (H) 94.0 - [facility] 97.0 % [facility] LABORATORY COHB Art 0.3 % [facility] LABORATORY Comment: Nonsmokers: 0.5-1.5% COHB Smokers: Variable, but usually less than 10% Toxic: 20-30% COHB Lethal: Greater than 60% COHB METHB Art 0.3 <=1.5 % [facility]ORATORY Na Whole Blood 134 (L) 135 - 145 mmol/L [facility] LABORATORY K Whole Blood 3.8 3.5 - 5.0 mmol/L [facility] LABORATORY Comment: Please note: Patients with WBC >100,000 may have falsely elevated Potassium levels. Contact the Clinical Chemistry L aboratory if there are any questions. ICa Whole Blood 1.12 (L) 1.15 - 1.33 mmol/L [facility] LABORATORY Comment: Note: ??Total bilirubin higher than 20 m g/dL may lead to falsely low ionized calcium. CL Whole Blood 108 (H) 98 - 107 mmol/L [facility] LABORATORY Gluc Whole Bld 155 65 - 199 mg/dL [facility] Comment: Diabetes: >=200 mg/dL plus symp toms. Lactate WB 1.4 0.5 - 2.2 mmol/L [facility] LABORATORY Specimen Anatomical Collection Method Collection Time Receive d Time (Source) Location / / Volume Laterality Blood 09/27/2021 4:33 PM 2 4:33 EDT PM EDT Abdon Arreguin MD CHEMISTRY ORDERABLES Performing Organization Address [facility]/[place] [address] Prepare cryoprecipitate (09/27/2021 4:20 PM EDT) P athologist Signature Dispensed? Yes [facility] LABORATORY Specimen Anatomical Collection Method Collection Time Receive d Time (Source) Location / / Volume Laterality Blood 09/27/2021 4:20 PM 2 4:19 EDT PM EDT Abdon Arreguin MD BLOOD BANK ORDERABLES Performing Organization Address City/[facility] [place] [address] (ABNORMAL) BLOOD GAS 2 ARTERIAL (09/27/2021 3:48 PM EDT) Analysis Performed At Patho logist Time Signature pH Art 7.39 7.35 - [facility] 7.45 [facility] LABORATORY pCO2 Art 38 35 - 45 [facility] mmHg [facility] LABORATORY pO2 Art 482 (H) 85 - 104 [facility] mmHg [facility] LABORATORY HCO3 Art 22.6 20.0 - [facility] 26.0 [facility] mmol/L [facility] LABORATORY BE Art -2.3 -3.0 - 3.0 [facility] mmol/L [facility] LABORATORY Hgb Blood Gas 10.0 (L) 13.7 - [facility] 16.5 g/dL [facility] LABORATORY O2HB Art 98.9 (H) 94.0 - [facility] 97.0 % [facility] LABORATORY COHB Art 0.3 % [facility] LABORATORY Comment: Nonsmokers: 0.5-1.5% COHB Smokers: Variable, but usually less than 10% Toxic: 20-30% COHB Lethal: Greater than 60% COHB METHB Art 0.3 <=1.5 % [facility]ORATORY Na Whole Blood 133 (L) 135 - 145 mmol/L [facility] LABORATORY K Whole Blood 4.2 3.5 - 5.0 mmol/L [facility] LABORATORY Comment: Please note: Patients with WBC >100,000 may have falsely elevated Potassium levels. Contact the Clinical Chemistry L aboratory if there are any questions. ICa Whole Blood 0.99 (L) 1.15 - 1.33 mmol/L [facility] LABORATORY Comment: Note: ??Total bilirubin higher than 20 m g/dL may lead to falsely low ionized calcium. CL Whole Blood 105 98 - 107 mmol/L [facility] LAB[facility]ORY Gluc Whole Bld 144 65 - 199 mg/dL [facility] LAB[facility] Comment: Diabetes: >=200 mg/dL plus symp toms. Lactate WB 1.4 0.5 - 2.2 mmol/L [facility] LABOR[facility]ORY Specimen Anatomical Collection Method Collection Time Receive d Time (Source) Location / / Volume Laterality Blood 09/27/2021 3:48 PM 2 3:48 EDT PM EDT Abdon Arreguin MD CHEMISTRY ORDERABLES Performing Organization Address City/State/Z[place] [address] Platelet count (09/27/2021 3:40 PM EDT) P athologist Signature Platelets 164 145 - 357 [facility] x10(3)/[facility] LABORATORY Plat Immature 3.8 0.0 - 7.4 [facility] % % [facility] LABORATORY Comment: Limitation of the Immature Platelet Frac tion (IPF)-May be less reliable when the platelet count is less than 67r411/u L due to statistical imprecision. The IPF [...] in a decreased state of production. References: [employer] The Clinical Value of the Immature Platelet Fraction (IPF) in Cell Recovery Document Number [id number] 07/2010 [employer] The Role of the Imm ature Platelet Fraction (IPF) in the Differential Diagnosis of Thrombocytopen ia, Document [id number] V05/01/22 P05 Specimen Anatomical Collection Method Collection Time Receive d Time (Source) Location / / Volume Laterality Blood 09/27/2021 3:40 PM 2 3:55 EDT PM EDT Resulting Agency Comment Spec In Lab Abdon Arreguin MD HEMATOLOGY ORDERABLES Performing Organization Address City/[facility]/[place] [address] (ABNORMAL) Hemoglobin (09/27/2021 3:40 PM EDT) athologist Signature Hemoglobin 9.3 (L) 13.7 - 16.5 [facility] LABORATORY Comment: This result has [...] Arreguin MD HEMATOLOGY ORDERABLES Performing Organization Address City/[facility]/ZIP [facility] [place] [address] Fibrinogen (09/27/2021 3:40 PM EDT) athologist Signature Fibrinogen 235 200 - 393 [facility] mg/dL [facility] LABORATORY Comment: OR Result called [...] Arreguin MD HEMATOLOGY ORDERABLES Performing Organization Address City/[facility]/[place] [address] (ABNORMAL) Hematocrit (09/27/2021 3:40 PM EDT) P athologist Signature Hematocrit 27.7 (L) 40.5 - [facility] 48.5 % [facility] LABORATORY Comment: This result has [...] Arreguin MD HEMATOLOGY ORDERABLES Performing Organization Address City/[facility]/[place] [address] (ABNORMAL) BLOOD GAS 2 ARTERIAL (09/27/2021 3:16 PM EDT) Analysis Performed At Patho logist Time Signature pH Art 7.41 7.35 - [facility] 7.45 [facility] LABORATORY pCO2 Art 36 35 - 45 [facility] mmHg [facility] LABORATORY pO2 Art 525 (H) 85 - 104 [facility] mmHg [facility] LABORATORY HCO3 Art 22.5 20.0 - [facility] 26.0 [facility] mmol/L [facility] LABORATORY BE Art -2.1 -3.0 - 3.0 [facility] mmol/L [facility] LABORATORY Hgb Blood Gas 10.1 (L) 13.7 - [facility] 16.5 g/dL [facility] LABORATORY O2HB Art 98.8 (H) 94.0 - [facility] 97.0 % [facility] LABORATORY COHB Art 0.3 % [facility] LABORATORY Comment: Nonsmokers: 0.5-1.5% COHB Smokers: Variable, but usually less than 10% Toxic: 20-30% COHB Lethal: Greater than 60% COHB METHB Art 0.3 <=1.5 % [facility] LABORATORY Na Whole Blood 132 (L) 135 - 145 mmol/L [facility] LABORATORY K Whole Blood 4.0 3.5 - 5.0 mmol/L [facility] LABORATORY Comment: Please note: Patients with WBC >100,000 may have falsely elevated Potassium levels. Contact the Clinical Chemistry L aboratory if there are any questions. ICa Whole Blood 1.00 (L) 1.15 - 1.33 mmol/L [facility] LABORATORY Comment: Note: ??Total bilirubin higher than 20 m g/dL may lead to falsely low ionized calcium. CL Whole Blood 105 98 - 107 mmol/L [facility] LABORATORY Gluc Whole Bld 141 65 - 199 mg/dL [facility] LABORATORY Comment: Diabetes: >=200 mg/dL plus symp toms. Lactate WB 1.4 0.5 - 2.2 mmol/L [facility] LABORATORY Specimen Anatomical Collection Method Collection Time Receive d Time (Source) Location / / Volume Laterality Blood 09/27/2021 3:16 PM 2 3:16 EDT PM EDT Abdon Arreguin MD CHEMISTRY ORDERABLES Performing Organization Address City/State/Z[place] [address] (ABNORMAL) BLOOD GAS 2 ARTERIAL (09/27/2021 2:46 PM EDT) Analysis Performed At Patho logist Time Signature pH Art 7.36 7.35 - [facility] 7.45 [facility] LABORATORY pCO2 Art 44 35 - 45 [facility] LABORATORY pO2 Art 554 (H) 85 - 104 [facility] LABORATORY HCO3 Art 24.6 20.0 - [facility] 26.0 [facility] mmol/L [facility] LABORATORY BE Art -0.8 -3.0 - 3.0 [facility] mmol/L [facility] LABORATORY Hgb Blood Gas 9.6 (L) 13.7 - [facility] 16.5 g/dL [facility] LABORATORY O2HB Art 99.0 (H) 94.0 - [facility] 97.0 % [facility] LABORATORY COHB Art 0.3 % [facility] LABORATORY Comment: Nonsmokers: 0.5-1.5% COHB Smokers: Variable, but usually less than 10% Toxic: 20-30% COHB Lethal: Greater than 60% COHB METHB Art 0.3 <=1.5 % [facility] LABORATORY Na Whole Blood 133 (L) 135 - 145 mmol/L [facility] LABORATORY K Whole Blood 4.2 3.5 - 5.0 mmol/L [facility] LABORATORY Comment: Please note: Patients with WBC >100,000 may have falsely elevated Potassium levels. Contact the Clinical Chemistry L aboratory if there are any questions. ICa Whole Blood 0.97 (L) 1.15 - 1.33 mmol/L [facility] LABORATORY Comment: Note: ??Total bilirubin higher than 20 m g/dL may lead to falsely low ionized calcium. CL Whole Blood 105 98 - 107 mmol/L [facility] LABORATORY Gluc Whole Bld 128 65 - 199 mg/dL [facility] LABOR[facility] Comment: Diabetes: >=200 mg/dL plus symp toms. Lactate WB 1.1 0.5 - 2.2 mmol/L [facility] LABOR[facility]ORY Specimen Anatomical Collection Method Collection Time Receive d Time (Source) Location / / Volume Laterality Blood 09/27/2021 2:46 PM 2 2:46 EDT PM EDT Abdon Arreguin MD CHEMISTRY ORDERABLES Performing Organization Address City/State/Z[place] [address] BLOOD GAS 2 ARTERIAL (09/27/2021 1:47 PM EDT) athologist Signature pH Art 7.37 7.35 - [facility] 7.45 [facility] LABORATORY pCO2 Art 44 35 - 45 [facility] mmHg [facility] [facility] pO2 Art 102 85 - 104 [facility] LABORATORY HCO3 Art 25.0 20.0 - [facility] 26.0 [facility] mmol/L [facility] BE Art -0.3 -3.0 - 3.0 [facility] mmol/L [facility] Hgb Blood Gas 13.7 13.7 - [facility] 16.5 g/dL [facility] O2HB Art 96.5 94.0 - [facility] 97.0 % [facility] COHB Art 0.7 % [facility] Comment: Nonsmokers: 0.5-1.5% COHB Smokers: Variable, but usually less than 10% Toxic: 20-30% COHB Lethal: Greater than 60% COHB METHB Art 0.3 <=1.5 % [facility] Na Whole Blood 139 135 - 145 mmol/L [facility] K Whole Blood 3.6 3.5 - 5.0 mmol/L [facility] Comment: Please note: Patients with WBC >100,000 may have falsely elevated Potassium levels. Contact the Clinical Chemistry L aboratory if there are any questions. ICa Whole Blood 1.15 1.15 - 1.33 mmol/L [facility] Comment: Note: ??Total bilirubin higher than 20 m g/dL may lead to falsely low ionized calcium. CL Whole Blood 105 98 - 107 mmol/L [facility] Gluc Whole Bld 116 65 - 199 mg/dL [facility] Comment: Diabetes: >=200 mg/dL plus symp toms. Lactate WB 1.1 0.5 - 2.2 mmol/L [facility] Specimen Anatomical Collection Method Collection Time Receive d Time (Source) Location / / Volume Laterality Blood 09/27/2021 1:47 PM 2 1:47 EDT PM EDT Abdon Arreguin MD CHEMISTRY ORDERABLES Performing Organization Address City/State/[place] [address] Transesophageal Echo/OR (09/27/2021 12:56 PM EDT) Anatomical Region Laterality Modality Cardiac Other Specimen (Source) Anatomical Collection Method Collection Time Re ceived Time Location / / Volume Laterality 09/27/2021 12:56 PM EDT Narrative 09/27/2021 4:32 PM EDT ? Version: 1 Name: [address] ?Study Date: 09/27/2021, 12: 56 PM ?Patient Location: [facility] : 1945 (MM/DD/YYYY) ? Age: 76 Years Gender: Male Ordering Physician: [id number]^KALLIE^ABDON^P^^^^^EPIC^^^^PROV ID Referring Physician: [id number]^UNKNOWN^^^^^^ ^EPIC^^^^PROVID ? Conclusions Intraoperative GIUSEPPE performed to [...] Date: 09/09, 12: 56 PM Patient Location: [facility] : 1945 (MM/DD/YYYY) Age: 76 Years Gender: Male Ordering Physician: [id number]^KALLIE^ABDON^P^^^^^EPIC^^^^PROV ID Referring Physician: [id number]^UNKNOWN^^^^^^ ^EPIC^^^^PROVID Conclusions Intraoperative GIUSEPPE performed to confirm [...] 12:05 PM EDT) athologist Signature Dispensed? Yes [facility] Specimen Anatomical Collection Method Collection Time Receive d Time (Source) Location / / Volume Laterality Blood 09/27/2021 12:05 09/27/2021 PM EDT 12:02 PM EDT Abdon Arreguin MD BLOOD BANK ORDERABLES Performing Organization Address City/[facility]/ZIP Code Phon e Number [address] POCT Glucose (09/27/2021 11:37 AM EDT) athologist Signature POC Glucose 124 65 - 199 [facility] mg/dL [facility] Comment: Supplemental ranges: <140 mg/dL before meals <180 mg/dL all other times of the day Specimen Anatomical Collection Method Collection Time Receive d Time (Source) Location / / Volume Laterality Blood 09/27/2021 11:37 09/27/2021 AM EDT 11:37 AM EDT Abdon Arreugin MD POINT OF CARE TEST ORDERABLE S Performing Organization Address City/State/[place] [address] SCAN DOC: LAB (09/27/2021 12:00 AM EDT) Narrative 09/27/2021 12:00 AM EDT This result has an attachment that is no t available. Ordered by an unspecified provider. 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 Yes, Can this patient tolerate oral medications or suppositories? No Given 09/28/2021 5:00 AM EDT 1,000 mg [...] at 1830, Until Discontinued, When EXtubated. , Routine, Is there a contraindication to the patient receiving this medication as a nebulizer? Yes Given 09/27/2021 8:10 PM EDT 2 puffs [...] 6 hours upon arrival to Unit. Give IN if unable to take PO, Routine benzonatate [...] dose on Thu09/27/21 at 2100, Until Discontinued, [place] teeth, Routine dextrose 10% infusion 250 mL, [...] Intravenous, 2 TIMES DAILY, First dose on 09/29/21 at 1000, Until Discontinued Given 10/01/2021 8:46 [...] (2 times per day), First dose on Thu09/28/21 at 1100, Until Discontinued, Hold for HR<60 [...] 1830, Until 09/28/21 at 1211, Titrate to keep systolic blood pressure greater than 90 mmHg. Start at 2 mcg/minute and adjust by 2 mcg/min every 3 minutes. Dose not to exceed 30 mcg/minute. Begin if PHENYLephrine and/or vasopressin ineffective. Call pager # [phone] if initiated., Routine New Bag 09/27/2021 5:53 [...] 1830, Until Thu09/28/21 at 1211, Titrate to sedation level of [...] 2.0 L/min/M2. Maximum volume 2 L. Call warehouse associate driver for additional fluid orders: pager #[phone]. New Bag 09/28/2021 9:55 AM EDT 30 [...] PRN, Starting on Thu09/27/21 at 1743, Until Thu09/28/21 at 1211, Side port TKO rate, per [...] 7.5 mg, Oral, ONCE, 1 dose, On 8/24/22 at 1700, DO NOT SPLIT, CRUSH OR [...] RN) 0527 (Given - Provider: Tatiana gustafson, TY)1128 (Given - Provider: Marilou Graff RN)1754 (Given [...] RN)2042 (Given - Provider: Tatiana Lopez RN) 08 (Given - Provider: Esthela george RN) 2 [...] RN)163 (Given - Provider: Marilou Graff RN) 08 (Given - Provider: Esthela Vu RN)1611 (Given - Provider: Esthela Vu RN) 300 mg, Oral, 2 TIMES DAILY BEFORE MEALS , First dose on Thu09/28/21 at 0730, Until Discontinued, Routine guaiFENesin ER (Mucinex) tablet 600 mg 1857 (Given - P rovider: Fransisca Hernandez RN) 0728 (Given - Provider: Marilou Graff RN)204 (Given - Provider: Tatiana Lopez RN) 0807 (Given - Provider: Esthela george RN) 600 mg, Oral, EVERY 12 HOURS, First dose on Thu10/01/21 at 1930, Until Discontinued, DO NOT CRUSH OR OPEN, Routine insulin lispro (HumaLOG;Admelog) (100 un it/mL) subcutaneous injection vial 1-6 Units(Linked Group 1) 0851 (Given - Provider: Fransisca mcmullen RN)1153 (Given - Provider: Fransisca Hernandez RN)1630 (Not Given - Provider: Fransisca Hernandez RN [...] Marilou Graff RN)1405 (Given - Provider: Marilou Graff, TY)2040 (Given - Provider: Tatiana Lopez, TY) 0200 (Not Given - Provider: Tatiana Lopez RN - Reason: Patient/family refused)0807 (Given - Provider: Esthela Vu, TY)1411 (Given - Provider: Esthela Vu, TY) 3 mL, Nebulization, EVERY 6 HOURS, First dose on 09/28/21 at 1100, Until Discontinued, Routine 1928 (Given - Provider: Tatiana Lopez RN) levothyroxine (Synthroid) tablet 125 mcg 0508 (Given - Provider: Tatiana Lopez, TY) 0527 (Given - Provider: Tatiana Lopez, TY) 0516 (Given - Provider: Tatiana Lopez RN) 125 mcg, Oral, DAILY, First dose on 09/28/21 at 0600, Until Discontinued, Routine lidocaine (Lidoderm) 5% patch 1 patch(Linked Group 2) 0015 (Not Given - Provider: Tatiana Lopez RN - Reason: See comment - Comment: patch already given. see MAR)2325 (Patch Applied - Provider: Tatiana Lopez, TY) 2332 (Patch Applied - Provider: Tatiana Lopez RN) 1 patch, Transdermal, EVERY 24 HOURS, Fi rst dose on Thu09/28/21 at 0015, Until Discontinued, Apply patch(es) for [...] Hernandez RN)1535 (Given - Provider: Fransisca Hernandez RN)210 (Given - Provider: Tatiana Lopez, TY) 0527 (Given - Provider: Tatiana gustafson, TY)1405 (Given - Provider: Marilou Graff RN)210 (Given - Provider: Tatiana Lopez, TY) 0516 (Given - Provider: Tatiana gustafson, TY)1411 (Given - Provider: Esthela Vu, TY) 50 [...] ER (K-Dur/Klor-Con) tablet 40 mEq ( COMPLETED) 06 (Given - Provider: Tatiana Lpoez RN)1152 (Given - Provider: Fransisca Hernandez RN) 40 mEq, Oral, EVERY 4 HOURS, 2 doses, Fi rst dose on Thu10/01/21 at 0630, Last dose on Thu10/01/21 at 1030, 20 mEq tablet may be dissolved in water for administration, Routine potassium chloride ER (K-Dur/Klor-Con) tablet 40 mEq (COMPLE ANGELICA) 1128 (Given - Provider: Marilou Graff RN) 40 [...] mg 1710 (Given - Pro vider: Fransisca Hernandez, TY) 184 (Given - Provider: Marilou Graff RN) 1611 [...] on Thu09/28/21 at 1300, Until Discontinued, Routine tamsulosin (Flomax) [...] 7.5 mg, Oral, ONCE, 1 dose, On 8/24/ 22 at 1700, DO NOT SPLIT, CRUSH OR OPEN, Routine Continuous Medication Order 10/01/2021 10/02/2021 10/03/2021 heparin (porcine) 50 units/mL in sodium chloride 0.45% 500 mL infusion (CANCELED) 0026 (New Bag - Provider: Tatiana chi RN)2146 (New Bag - Provider: Tatiana Lopez, TY) 0800 (Rate/Dose Verify - Provider: Sarah Graff RN)1200 (Rate/Dose Verify - Provider: Marilou Graff RN)1815 (Rate/Dose Verify - Provider: Marilou Graff, TY)1904 (New Bag - Provider: Marilou Graff RN) [...] S tarting on Thu09/30/21 at 0815, Until Ziabel 10/03/21 at 1914, Low blood sugar, For [...] 2323, Until Thu10/03/21 at 1914, Pain, for mild pain (1-3), [...] episode. 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
Routine documented in this encounter Care Teams Research Laboratory Specialist Relationship Specialty Start Date End Date Jesusita Law MD PCP - General Family Medicine 09/03/[address] [place] [address] documented as of this encounter
--- OUTSIDE RECORDS SUMMARY | 2021-11-22 10:39 | XMS_ITS | Encounter Summary ---
:1945 Author Organization [facility] Address [address] [place] [address] Care Team Providers Name Role Phone Jesusita Law MD Primary Care Provider Reason for Visit Auth/Cert Specialty Diagnoses / Procedures Referred By Contact Refer red To Contact Diagnoses Coronary artery disease involving [place] heart with unstable angina pectoris, unspecified vessel or lesion type cad Abdon Dawson MD [facility] Procedures PRO CABG, ARTERIAL, SINGLE PRO CABG, ARTERY-VEIN, THREE PRO ENDOSCOPY W/VIDEO-ASST VEIN HARVEST, CABG @CABG, USING ARTERIAL GRAFT;SINGLE ARTERIAL GRAFT (WRVU 33.75) @CABG; 3 VENOUS GRAFTS & ARTERIAL GRAFT (WRVU 10.49) [facility] ENDOSCOPIC HARVEST VEIN(S) FOR CABG (WRV U 0.31) [place] [address] Referral ID Status Reason Start Date Expiration Date Visits Requ ested Visits Authorized [id number] 1 1 Encounter Details Date Type Department Care Team Description 09/29/2021 Anesthesia Event Main Operating Room Blair Arcos MD [facility] ANESTHESIOLOGY [place], [place] [address] [place] [address] [phone] Anesthesia Record Procedure Summary Procedure Name Responsible [...] (top of Ioana Isabel RN hand), left; zgol-fxd-aowrrb catheter system; 18 gauge; ioana CRAWFORD Incision [...] Procedure Summary Date: 09/29/21 Room / [facility] Anesthesia Start: 1259 Anesthesia Stop: 1513 Procedure: EMBOLECTOMY OR THROMBECTOMY, FEMOROPOPLITEAL, AORTOILIAC ARTERY BY LEG INCISION (WRVU 19.48) (Left Leg Lower) Diagnosis: (left leg ischemia) Surgeons: Joselito Washburn MD Responsible Provider: Mir Arcos MD Anesthesia Type: general ASA Status: 3 - Emergent All Anesthesia Providers: Anesthesiologist: Mir Arcos MD Warehouse Operator: Abdon Mccauley MD Vitals Value Taken Time BP Temp Pulse Resp SpO2 Pain Level Patient Location: PACU/[facility] Level of Consciousness: Awake and Alert [...] Date Noted ??? 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 PACEMAKER IMPLANT ? ? PRG CATH PLOK LEFT HEART CATH & ARTS W/INJ & ANGIO IMG S&I N/A 09/10/2021 CORONARY ANGIOGRAPHY; W LHC,POSSIBLE PCI performed by Vinod Hassan MD at [facility] CATH LAB[facility] ??? PRO CABG, ARTERIAL, SINGLE N/A 09/27/2021 @CABG, USING ARTERIAL GRAFT;SINGLE ARTERIAL GRAFT (WRVU 33.75) performed by Abdon Dawson MD at [facility] ??? PRO CABG, ARTERY-VEIN, THREE N/A 09/27/2021 @CABG; 3 VENOUS GRAFTS & ARTERIAL GRAFT (WRVU 10.49) performed by Abdon Dawson MD at [facility] ??? PRO ENDOSCOPY W/VIDEO-ASST VEIN HARVEST, CABG N/A 09/27/2021 ENDOSCOPIC HARVEST VEIN(S) FOR CABG (WRVU 0.31) performed by Abdon Dawson MD at [facility] Social History Tobacco Use ??? [...] Physical Exam: Preprocedure Vitals Current as of 09/29/21 1252 BP: 154/79 Pulse: 98 Resp: SpO2: Temp: Height: 170.2 cm (5' 7) (09/27/21) Weight: 113.3 kg (249 lb 12.5 oz) (09/29/21) BMI: 39.12 IBW: 66.1 kg (145 lb 12.2 oz) Last edited 09/29/21 0840 by EJ Airway Assessment: Mallampati: II TM distance: >3 [...] PRN, Starting on 09/29/21 at 1301, Until Thu09/29/21 at 1513, Anesthesia Intra-op lactated ringers infusion [...] Routine documented in this encounter Care Teams Key Worker Relationship Specialty Start Date End Date Jesusita Law MD PCP - General Family Medicine 09/03/[address] [place] [address] documented as of this encounter
--- OUTSIDE RECORDS SUMMARY | 2021-11-22 10:40 | XMS_ITS | Encounter Summary ---
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, unspecified vessel or lesion type cad Abdon Dawson MD [facility] Procedures PRO CABG, ARTERIAL, SINGLE PRO CABG, ARTERY-VEIN, THREE PRO ENDOSCOPY W/VIDEO-ASST VEIN HARVEST, CABG @CABG, USING ARTERIAL GRAFT;SINGLE ARTERIAL GRAFT (WRVU 33.75) @CABG; 3 VENOUS GRAFTS & ARTERIAL GRAFT (WRVU 10.49) [facility] ENDOSCOPIC HARVEST VEIN(S) FOR CABG (WRV U 0.31) [place] [address] Referral ID Status Reason Start Date Expiration Date Visits Requ ested Visits Authorized [id number] 1 1 Encounter Details Date Type Department Care Team Description 09/24/2021 Hospital Encounter [place] [facility] [place]don Dawson Coronary artery [address] [place] [address] Dr Murali MD disease involving [facility] [place] heart [facility] [address] [place] unstable angina [phone] CARDIOTHORACIC pectoris, SURGERY unspecified vessel [place], [place] or lesion type [address] Social History Tobacco Use Types Packs/Day Years [...] OTC) 55 mcg Aerosol, spray into both [place] nostrils once a day as needed for [...] LATERAL EDT disease involving procedure are in [place] heart with the result s unstable angina [...] who have questions please contact the health youth care worker that requested your imaging first. ? Electronically signed by: Marilin Rocha MD , [facility] ([phone]), at 09/24/2021 3:26 PM Narrative 09/24/2021 3:26 [...] 09/24/2021 EXAMINATION: XR CHEST PA AND LATERAL (GemaIC) CLINICAL HISTORY: cad Unstable angina. TECHNIQUE: PA [...] ho have questions please contact the health youth care worker that requested your imaging first. 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
--- OUTSIDE RECORDS SUMMARY | 2021-11-22 10:40 | XMS_ITS | Encounter Summary ---
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, unspecified vessel or lesion type cad Abdon Dawson MD [facility] Procedures PRO CABG, ARTERIAL, SINGLE PRO CABG, ARTERY-VEIN, THREE PRO ENDOSCOPY W/VIDEO-ASST VEIN HARVEST, CABG @CABG, USING ARTERIAL GRAFT;SINGLE ARTERIAL GRAFT (WRVU 33.75) @CABG; 3 VENOUS GRAFTS & ARTERIAL GRAFT (WRVU 10.49) [facility] ALMEIDA HARVEST VEIN(S) FOR CABG (WRV U 0.31) CARDIOTHORACIC [place] [address] Referral ID Status Reason Start Date Expiration Date Visits Requ ested Visits Authorized [id number] 1 1 Encounter Details Date Type Department Care Team Description 09/24/[address] [place] [facility] [place]ary artery [facility] disease [place] [address] [place] heart with [place], [place] unstable angina [id number] pectoris, unspecified [phone] vessel or lesio n type Social History [...] this EDT disease involving procedure are in [place] heart with the result s unstable angina section. pectoris, unspecified vessel or lesion type DIFFERENTIAL, Routine 09/24/2021 1:06 PM Coronary artery Resul ts for this AUTOMATED EDT disease involving procedure are in [place] heart with the result s unstable angina section. pectoris, unspecified vessel or lesion type HC ANTIBODY Routine 09/24/2021 1:06 PM Coronary artery DETECTION,CAPTURE-R EDT disease involving [place] heart with unstable angina pectoris, unspecified vessel or lesion type ABO/RH TYPING Routine 09/24/2021 1:06 PM Coronary artery Resul ts for this EDT disease involving procedure are in [place] heart with the result s unstable angina section. pectoris, unspecified vessel or lesion type HC CBC,PLT & AUTO Routine 09/24/2021 1:06 PM Coronary artery DIFF EDT disease involving [place] heart with unstable angina pectoris, unspecified vessel or lesion type ANTIBODY SCREEN Routine 09/24/2021 1:06 PM Coronary artery Res ults for this EDT disease involving procedure are in [place] heart with the result s unstable angina section. pectoris, unspecified vessel or lesion type BASIC METABOLIC Routine 09/24/2021 1:06 PM Coronary artery Res ults for this PANEL (NON-FASTING) EDT disease involving pro cedure are in [place] heart with the result s unstable angina section. pectoris, unspecified vessel or lesion type documented in this encounter Results Type and Screen Validity (09/24/2021 1:06 PM EDT) [facility] Method Time Signature T&S only valid [facility] LABORATORY Comment: This Type and Screen result is only valid at the [facility] Specimen Anatomical Collection Method Collection Time Receive d Time (Source) Location / / Volume Laterality Blood 09/24/2021 1:06 PM 1:15 EDT PM EDT Resulting Agency Comment Spec In Lab Abdon Dawson MD BLOOD BANK ORDERABLES Performing Organization Address City/State/ZIP Code Phon e Number [address] ABORH Recheck Status (09/24/2021 1:06 PM EDT) [facility] Method Time Signature ABORH Type Completed [facility] LABORATORY Specimen Anatomical Collection Method Collection Time Receive d Time (Source) Location / / Volume Laterality Blood 09/24/2021 1:06 PM 1:15 EDT PM EDT Resulting Agency Comment Spec In Lab Abdon Dawson MD BLOOD BANK ORDERABLES Performing Organization Address City/[facility]/ZIP Code Phon e Number [address] (ABNORMAL) Differential, Automated (09/24/2021 1:06 PM EDT) [facility] Method Time Signature Neutrophils % 57.0 % [facility] LABORATORY Neutr Abs (ANC) 4.57 1.70 - [facility] 6.10 [facility] x10(3)/[facility] LABORATORY Lymphocytes % 24.3 % [facility] LABORATORY Lymphocytes Abs 1.9 0.9 - 3.2 [facility] x10(3)/[facility] LABORATORY Monocytes % 12.8 % [facility] LABORATORY Monocyte Abs 1.0 (H) 0.3 - 0.9 [facility] x10(3)/[facility] LABORATORY Eosinophils % 4.5 % [facility] LABORATORY Eosinophils Abs 0.4 0.0 - 0.4 [facility] x10(3)/[facility] LABORATORY Basophils % 1.1 % [facility] LABORATORY Basophils Abs 0.1 0.0 - 0.1 [facility] x10(3)/[facility] LABORATORY Immature Gran % 0.30 % [facility] LABORATORY Comment: Immature granulocytes(IG's)percentage an d absolute count will include metamyelocytes, myelocytes, and promyelo cytes. Blood smears from CBCs yielding IG's will be scanned manually for concor dance. If this scan disagrees with the automated IG or if promyelocytes are not ed, a manual differential will be performed. Anna Gran Abs 0.02 0.00 - 0.04 x10(3)/[facility] LABORATORY Specimen Anatomical Collection Method Collection Time Receive d Time (Source) Location / / Volume Laterality Blood 09/24/2021 1:06 PM 2 1:09 EDT PM EDT Resulting Agency Comment Spec In Lab Abdon Dawson MD HEMATOLOGY ORDERABLES Performing Organization Address City/State/[place] [address] (ABNORMAL) Hemogram (09/24/2021 1:06 PM EDT) Analysis Performed At Patho logist Time Signature WBC 8.0 4.0 - 9.5 [facility] x10(3)/[facility] LABORATORY RBC 4.85 4.58 [facility] x10(6)/[facility] LABORATORY Hemoglobin 13.5 (L) 13.7 [facility] g/dL [facility] LABORATORY Hematocrit 42.6 40.5 - [facility] 48.5 % [facility] LABORATORY MCV 87.8 82.9 [facility]1 [facility] LABORATORY MCH 27.8 27.5 - [facility]1 pg [facility] LABORATORY MCHC 31.7 (L) 32.0 - [facility] 35.7 g/dL [facility] LABORATORY Platelets 232 145 - 357 [facility] x10(3)/[facility] LABORATORY RDWSD 44.9 36.0 - [facility].0 [facility] LABORATORY RDWCV 14.0 (H) 11.4 - [facility] 13.8 % [facility] LABORATORY MPV 10.0 7.6 - 12.9 [facility] LABORATORY nRBC % Auto 0.0 % [facility] LABORATORY nRBC Abs Auto 0.000 0.000 - [facility] 0.000 [facility] x10(3)/[facility] LABORATORY Specimen Anatomical Collection Method Collection Time Receive d Time (Source) Location / / Volume Laterality Blood 09/24/2021 1:06 PM 2 1:09 EDT PM EDT Resulting Agency Comment Spec In Lab Abdon Dawson MD HEMATOLOGY ORDERABLES Performing Organization Address City/[facility]/[place] [address] Antibody screen (09/24/2021 1:06 PM EDT) Patholo gist Method Time Signature Ab Screen Negative [facility] LABORATORY Expires at 09/30/2021 [facility] [id number] on: [facility] LABORATORY Specimen Anatomical Collection Method Collection Time Receive d Time (Source) Location / / Volume Laterality Blood 09/24/2021 1:06 PM 2 1:15 EDT PM EDT Resulting Agency Comment Spec In Lab Abdon Dawson MD BLOOD BANK ORDERABLES Performing Organization Address City/[facility]/[place] [address] ABO/Rh Typing (09/24/2021 1:06 PM EDT) P athologist Signature ABORh Type O Neg [facility] LABORATORY Specimen Anatomical Collection Method Collection Time Receive d Time (Source) Location / / Volume Laterality Blood 09/24/2021 1:06 PM 2 1:15 EDT PM EDT Resulting Agency Comment Spec In Lab Abdon Dawson MD BLOOD BANK ORDERABLES Performing Organization Address City/[facility]/[place] [address] (ABNORMAL) Basic Metabolic Panel (non-fasting) (09/24/2021 1:06 PM EDT) P athologist Signature Glucose Lvl 143 65 - 199 [facility] mg/dL [facility] LABORATORY Comment: Diabetes: >=200 mg/dL plus symp toms BUN 22 (H) 10 - 20 mg/dL [facility] LABORATORY Creatinine 0.94 0.80 - 1.50 mg/dL [facility] LABORATORY Sodium 141 135 - 145 mmol/L [facility] LABORATORY Potassium 4.4 3.5 - 5.0 mmol/L [facility] LABORATORY Comment: Please note: ??Patients with WBC >100,00 0 may have falsely elevated Potassium levels. ??For accurate Potassium quantif ication in these patients send serum separator tube (gold top) for subsequent determinations. ??Contact the Clinical Chemistry Laboratory if there are any qu estions. Chloride 102 98 - 107 mmol/L [facility] LABORATORY CO2 27 22 - 31 mmol/L [facility] LABORATORY Anion Gap 12 5 - 15 mmol/L [facility] LABORATORY Calcium 9.4 8.5 - 10.5 mg/dL [facility] LABORATORY Estimated GFR 85 >=60 mL/min/1.73 m?? 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
--- OUTSIDE RECORDS SUMMARY | 2021-11-22 10:40 | XMS_ITS | Encounter Summary ---
:1945 Author Organization [facility] Address [facility] [place] [address] Care Team Providers Name Role Phone Jesusita Law MD Primary Care Provider [phone] Reason for Visit Auth/Cert Specialty Diagnoses / Procedures Referred By Contact Refer red To Contact Diagnoses Coronary artery disease involving [place] heart with unstable angina pectoris, unspecified vessel or lesion type cad Abdon Arreguin MD [facility] Procedures PRO CABG, ARTERIAL, SINGLE PRO CABG, ARTERY-VEIN, THREE PRO ENDOSCOPY W/VIDEO-ASST VEIN HARVEST, CABG @CABG, USING ARTERIAL GRAFT;SINGLE ARTERIAL GRAFT (WRVU 33.75) @CABG; 3 VENOUS GRAFTS & ARTERIAL GRAFT (WRVU 10.49) [facility] DR ALMEIDA HARVEST VEIN(S) FOR CABG (WRV U 0.31) CARDIOTHORACIC [place] [address] Referral ID Status Reason Start Date Expiration Date Visits Requ ested Visits Authorized [id number] 1 1 Encounter Details Date Type Department Care Team Description 09/27/2021 Surgery Main Operating Room Abdon Arreguin, @ CABG, USING ARTERIAL Eveline Hayward MD GRAFT;SINGLE ARTERIAL Hospital [facility] GRAFT (WRVU 33.75) [facility] DR Fisher [place] [address] SURGERY [phone] [place], [place] [address] (Wo rk) Social History Tobacco [...] Patient Age: 76 y.o. Birthdate: 1945 Language: Montserratian Race: White Ethnicity: Not nor Admit Date: [...] below for details) Inpatient Provider Contact Information: [facility] Section of Cardiac Surgery [facility] [address] FAX [phone] Discharge Diagnoses (Hospital Problems) Primary Diagnoses: CAD Secondary Diagnoses: LLE Ischemia s/p urgent left SFA embolectomy Chronic AF Active Hospital Problems Diagnosis ??? 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 PRO CABG, ARTERIAL, SINGLE N/A 09/27/2021 @CABG, USING ARTERIAL GRAFT;SINGLE ARTERIAL GRAFT (WRVU 33.75) performed by Abdon Arreguin MD at [facility] MAIN OR ??? PRO CABG, ARTERY-VEIN, THREE N/A 09/27/2021 @CABG; 3 VENOUS GRAFTS & ARTERIAL GRAFT (WRVU 10.49) performed by Abdon Arreguin MD at [facility] MAIN OR ??? PRO EMBLC/THRMBC FEMORAL POPLITEAL AORTO-ILIAC ARTERY Left 09/29/2021 EMBOLECTOMY OR THROMBECTOMY, FEMOROPOPLITEAL, AORTOILIAC ARTERY BY LEG INCISION (WRVU 19.48) performed by Joselito Washburn MD at [facility] OR ??? PRO ENDOSCOPY W/VIDEO-ASST VEIN HARVEST, CABG N/A 09/27/2021 ENDOSCOPIC HARVEST VEIN(S) FOR CABG (WRVU 0.31) performed by Abdon Arreguin MD at [facility] MAIN OR Prior To Admission Medications Medications [...] (NASACORT or NASACORT OTC) 55 mcg Aerosol, [place] 1 spray by Nasal route daily. 55 [...] s/p CABGx4 [address] was admitted to [facility] on 09/27/2021 via the Same [...] not take or discontinue any prescription or fgpd-cnx-enaoxuw medications without asking your doctor or pharmacist [...] Abdon Arreguin and/or the Cardiac Surgery Physician Automotive Lot Attendant Team may be reached at . Weight: [...] Dr. Abdon Arreguin. You may use a Silt Track or treadmill but avoid any pulling [...] friends, go to a movie, go to jain, etc. Heavy activities: No hunting, skiing, jogging, snow shoveling, snowmobiling, lawn mowing, swimming, golf or tennis until after your return appointment with the surgeon. Do not ride motorcycles, [employer]'s tractors or horses. Avoid the use of [...] should resume a low fat, low cholesterol, Spanish Heart Association Diet. Driving: No driving until [...] while being managed by your PCP and/or Foam Dispenser. For future medication refills, please refer to your PCP and/or Foam Dispenser after your discharge from our service. Thank [...] Provider Department Dept Phone 10/22/2021 1:45 PM [facility] DX ROOM 1 XRay at [facility] Arrive at: Electronic Gluing Machine Operator Area [phone] Please go to Electronic Gluing Machine Operator Area ([place] Location). 10/22/2021 2:30 PM Abdon Arreguin MD Cardiac Surgery at [facility] Arrive at: Electronic Gluing Machine Operator Area [phone] 11/05/2021 9:45 AM [facility] DX ED ROOM 1 XRay at [facility] Arrive at: Electronic Gluing Machine Operator Area [phone] Please go to Electronic Gluing Machine Operator Area ([place] Location). 11/05/2021 10:40 AM Abdon Arreguin MD Cardiac Surgery at [facility] Arrive at: Electronic Gluing Machine Operator Area [phone] Future Orders Complete By Expires TONEY, legs, multiple levels [VAS8 Custom] 10/08/2021 (Approximate) 11/01/2021 Process Instructions: There is no in-house vascular senior label specialist available on weeknights (5pm-8am), weekends, or holidays. IF THIS IS A REQUEST FOR AN EMERGENT STUDY DURING THOSE HOURS, please have the senior provider responsible for the patient page the Vascular Surgery Fellow/Senior Resident rehabilitation technician to discuss options. Scheduling Instructions: Questions: Indication for study/signs & symptoms: s/p LLE embolectomy Question to be answered: ?perfusion Preferred location?: [facility] Clinics Referral to Cardiac Rehab [[id number] Custom] As directed Process Instructions: If no progress note charted, please enter Clinical details in comments. Scheduling Instructions: Questions: My question or request is: CABG- cardiac rehab at [facility] Referral to Home Health [REF34 Custom] As directed Process Instructions: If no progress note charted, please enter Clinical details in comments. Scheduling Instructions: Comments: Please evaluate [address] for admission to Home Health. [address] [facility] [address] (home) Date of : 1945 DOCUMENTATION FOR VNA SERVICES (INCLUDING THOSE PATIENTS WITH MEDICARE COVERAGE REQUIRING HOME VNA SERVICES AND/OR HOSPICE SERVICES) PATIENT'S LOCATION: [address] [facility] [address] (home) No relevant phone numbers on file. Rfid Engineer's Name: Self In discussion with the attending physician, it is certified that this patient is under their care and that they, or a Nurse Practitioner, or Physician Automotive Lot Attendant who is working directly with them, had [...] HOME HEALTH AGENCY: [facility] in [place], [place] and [phone] RN orders: Cardiopulmonary assessment, incisional assessment, assess [...] issues please call the Cardiology Office at [phone] FOR MEDICARE ONLY: In discussion with the [...] OR AFTER 10/07/21 Signed: Leilani Be PA-C [facility] Section of Cardiac Surgery [facility] [address] FAX [phone] Date: 10/03/2021 CC: Jesusita Law MD Unknown [...] not take or discontinue any prescription or hjup-dkt-siigefd medications without asking your doctor or pharmacist [...] Abdon Arreguin and/or the Cardiac Surgery Physician Automotive Lot Attendant Team may be reached at . Weight: [...] Dr. Abdon Arreguin. You may use a Silt Track or treadmill but avoid any pulling [...] friends, go to a movie, go to jain, etc. Heavy activities: No hunting, skiing, jogging, snow shoveling, snowmobiling, lawn mowing, swimming, golf or tennis until after your return appointment with the surgeon. Do not ride motorcycles, [employer]'s tractors or horses. Avoid the use of [...] should resume a low fat, low cholesterol, Spanish Heart Association Diet. Driving: No driving until [...] while being managed by your PCP and/or Foam Dispenser. For future medication refills, please refer to your PCP and/or Foam Dispenser after your discharge from our service. Thank [...] OTC) 55 mcg Aerosol, spray into both [place] nostrils once a day as needed for [...] in recliner post-d/c 3. Pt. to perform wnq-dj-eyhhd transfers with modified independence using a front [...] plan as stated. Time IN / OUT: 2773-1104 Total Minutes, Physical Therapy: 36 Fely Mejias PT , DPT Pager: [phone] Physical Therapy Inpatient Rehabilitation Department Leilani Be [...] PCI performed by Vinod Hassan MD at [facility] CATH LABS ??? PRO CABG, ARTERIAL, SINGLE N/A 09/27/2021 @CABG, USING ARTERIAL GRAFT;SINGLE ARTERIAL GRAFT (WRVU 33.75) performed by Abdon Arreguin MD at [facility] MAIN OR ??? PRO CABG, ARTERY-VEIN, THREE N/A 09/27/2021 @CABG; 3 VENOUS GRAFTS & ARTERIAL GRAFT (WRVU 10.49) performed by Abdon Arreguin MD at [facility] MAIN OR ??? PRO EMBLC/THRMBC FEMORAL POPLITEAL AORTO-ILIAC ARTERY Left 09/29/2021 EMBOLECTOMY OR THROMBECTOMY, FEMOROPOPLITEAL, AORTOILIAC ARTERY BY LEG INCISION (WRVU 19.48) performed by Joselito Washburn MD at [facility] MAIN OR ??? 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 WNL/WFL ?? corrective lenses multimedia teacher Communication: WFL Range of motion, strength, coordination: [...] Occupational Therapy: 40 (1 low complexity eval (8734-2495)) OT Evaluation Code Rationale: ?? Diagnosis & [...] and measurable assessment of functional outcome. Pager: [phone] Arlene Simms OT 10/02/2021 Occupational Therapy Rehabilitation [...] ??? PACEMAKER IMPLANT ? ? PRG CATH [facility] LEFT HEART CATH & ARTS W/INJ & ANGIO IMG S&I N/A 09/10/2021 CORONARY ANGIOGRAPHY; W LHC,POSSIBLE PCI performed by Vinod Hassan MD at [facility] CATH LABS ??? PRO CABG, ARTERIAL, SINGLE N/A 09/27/2021 @CABG, USING ARTERIAL GRAFT;SINGLE ARTERIAL GRAFT (WRVU 33.75) performed by Abdon Arreguin MD at [facility] MAIN OR ??? PRO CABG, ARTERY-VEIN, THREE N/A 09/27/2021 @CABG; 3 VENOUS GRAFTS & ARTERIAL GRAFT (WRVU 10.49) performed by Abdon Arreguin MD at [facility] MAIN OR ??? PRO EMBLC/THRMBC FEMORAL POPLITEAL AORTO-ILIAC ARTERY Left 09/29/2021 EMBOLECTOMY OR THROMBECTOMY, FEMOROPOPLITEAL, AORTOILIAC ARTERY BY LEG INCISION (WRVU 19.48) performed by Joselito Washburn MD at [facility] OR ??? PRO ENDOSCOPY W/VIDEO-ASST VEIN HARVEST, CABG N/A 09/27/2021 ENDOSCOPIC HARVEST VEIN(S) FOR CABG (WRVU 0.31) performed by Abdon Arreguin MD at [facility] MAIN OR Active Non-Hospital Problems Diagnosis ??? [...] standing without exhibiting loss ofbalance & no ynqgzi-co-clcsngg observed during gait Therapeutic Exercise: 6 repetitions [...] mobilization & ambulation with nursing & mobility overhead door technician staff. Discharge Recommendations: Based on the [...] to sternal precautions 3. Pt. to perform clx-xa-iwytx transfers with modified independence using a front [...] in this evaluation. Time IN / OUT: 6799-8119 Total Minutes, Physical Therapy: 40 Fely Mejias DPT Pager: [phone] Physical Therapy Inpatient Rehabilitation Department KateSam PA [...] Ext: warm, 1-2+ LE edema. +signals Incisions: ELECTRIC FURNACE OPERATOR CDI Tubes/Lines/Drains: PIV I/O last 3 completed [...] where referrals are placed. Provided patient with [facility] Star Quality Rating for Home care Patient requests referral to : [facility] [place] [id number] and Expected date of discharge: 10/04/2021. Referral routed to the Mixed Crop And Livestock Farmer for matching with agency/vendor and to provide [...] PT - 09/30/2021 4:34 PM EDT 09/30/21 5924 Evaluation & Treatment Document Type contact Total [...] AM rounds BEN To 09/28/2021 Cherrie Dunn, FURS SALESPERSON - 09/27/2021 8:36 PM EDT Protocol: CTICU [...] manage pt in CTICU protocol. Respiratory Pager# [phone] documented in this encounter H&P Notes Abdon [...] List Diagnosis ??? Coronary artery disease involving [place] heart with unstable angina pectoris, unspecified vesselor [...] PCI performed by Vinod Hassan MD at [facility] CATH LABS Family History: History reviewed. No [...] List Diagnosis ??? Coronary artery disease involving [place] heart with unstable angina pectoris, unspecified vesselor [...] ??? PACEMAKER IMPLANT ? ? PRG CATH PLCT LEFT HEART CATH & ARTS W/INJ & ANGIO IMG S&I N/A 09/10/2021 CORONARY ANGIOGRAPHY; W C,POSSIBLE PCI performed by Vinod Hassan MD at [facility] CATH LABS Family History: History reviewed. No [...] & Follow-up Care: Contact information for follow-up [facility], [address] [address] Transportation: family or friend will provide Functional [...] Type: *No Product type* / Secondary Insurance: [employer] Prescription Coverage: Yes This plan was formulated with input from patient and team. All are in agreement with plan. I have verbally reviewed Medicare Discharge Rights with patient. Patient verbalizes understanding ofright to appeal this discharge if feeling not medically ready. Offered a copy of this letter. Stacey GAMEZ RN Phone: [phone] Pager: [phone] Consult Note - Krista Godoy RN - 10/02/2021 11:04 AM EDT [facility] CARDIAC REHABILITATION [address] was seen today [...] Is home with VNA services Agency Referrals: [facility] in [place], [place] and [phone] Transportation: Family Barriers to discharge: None Plan going forward: Care Management will continue to follow and assist with discharge planning and coordination of care as indicated. Anticipated Date of Discharge: 10/06/2021 Office of Care Management Surgery Team Funeral Home Makeup Artist [email or web address] Pager #[phone] Consult Note - Sheila Thakkar MD - 10/01/2021 10:13 PM EDT [facility] Department of Surgery Inpatient Consult [...] Thakkar MD - 09/30/2021 12:59 PM EDT [facility] Department of Surgery Inpatient Consult [...] Operative Note Patient Name: Richy Street : [id number] MR#: [id number] Case Date: 09/29/2021 Surgeon: Surgeon(s) and Role: * Joselito aWshburn MD - Primary * Che Hayden MD [...] Loss: 352 mL Specim[facility]: Intraprocedure Crystalloid Total Intake Lactated Ringers [...] Washburn MD - 09/29/2021 1:35 PM EDT [facility] Operative Note Patient Name: Richy Street : [id number] MR#: [id number] Case Date: 09/29/2021 Surgeon: Surgeon(s) and Role: [...] with vessel loops. The patient was given 69336 units of intravenous heparin, which was allowed [...] Gaspar MD - 09/29/2021 11:07 AM EDT [facility] Department of Surgery Inpatient Consult [...] PCI performed by Vinod Hassan MD at [facility] CATH LABS ??? PRO CABG, ARTERIAL, SINGLE N/A 09/27/2021 @CABG, USING ARTERIAL GRAFT;SINGLE ARTERIAL GRAFT (WRVU 33.75) performed by Abdon Arreguin MD at [facility] MAIN OR ??? PRO CABG, ARTERY-VEIN, THREE N/A 09/27/2021 @CABG; 3 VENOUS GRAFTS & ARTERIAL GRAFT (WRVU 10.49) performed by Abdon Arreguin MD at [facility] MAIN OR ??? PRO ENDOSCOPY W/VIDEO-ASST VEIN HARVEST, CABG N/A 09/27/2021 ENDOSCOPIC HARVEST VEIN(S) FOR CABG (WRVU 0.31) performed by Abdon Arreguin MD at [facility] MAIN OR Medications No current facility-administered medications [...] (NASACORT or NASACORT OTC) 55 mcg Aerosol, [place] 1 spray by Nasal route daily. 55 [...] If you have any questions, please page [phone] (day/week) [phone] (night/weekend). [x] Consult service to continue to [...] surrogate would be surrogate decision maker per [place] surrogate decision making law. (Only good for 180 days) Any patient receiving care in [place] must abide by [place] law. The hierarchy for surrogate decision making [...] The agent with financial power of commercial litigation attorney or a conservator appointed in accordance [...] none Current DME: none Home Address as: [address] [place] [phone] Social & Family Supports: All names listed below confirmed with patient as current and correct Extended Emergency Contact Information Primary Emergency Contact: Vy Street Address: [address] [place] [phone] [facility] Mobile Relation: Spouse Current Care [...] Coverage: Primary Insurance: MEDICARE Secondary Insurance: STATE Adly Secondary Insurance? (Only Medicare A&B): Yes ; Prescription Coverage: Yes [facility] [place] Status: Patient is a : No Primary Care Provider: Jesusita Law MD [phone] Patient/Caregiver Goals of Treatment: Potential Needs for [...] PM EDT 09/29/2021 [address] Yenifer 1945 [id number] Preoperative Diagnosis: Coronary artery disease Unstable Angina Postoperative Diagnosis: Coronary artery diseaseUnstable Angina Procedure: CABG times 4: SOTO to LAD, SVG to diag and om, svg to rca. Endoscopic vein harvest Surgeon: Abdon Arreguin M.D. Automotive Lot Attendant: Mateo thornton Anesthesia: General endotracheal anesthesia Drains: [...] Operative Note Patient Name: Richy Street : [id number] MR#: [id number] Case Date: 09/27/2021 - 09/28/2021 Surgeon: Surgeon(s) and Role: * bAdon Arreguin MD - Primary * Sam Kate PA - Physician Automotive Lot Attendant * Davie Galindo PA - Physician Automotive Lot Attendant Preoperative diagnosis: cad Postoperative diagnosis: CAD Procedure(s) [...] disease involving p rocedure are in [place] heart with the result s unstable angina section. pectoris, unspecified vessel or lesion type ENDOSCOPIC HARVEST 09/27/2021 12:51 Coronary artery VEIN(S) FOR CABG ([facility] PM EDT disease involving 0.31) [place] heart with unstable angina pectoris, unspecified vessel or lesion type @CABG; 3 VENOUS GRAFTS 09/27/2021 12:51 Coronary arter y & ARTERIAL GRAFT ([facility] PM EDT disease involving 10.49) [place] heart with unstable angina pectoris, unspecified vessel or lesion type @CABG, USING ARTERIAL 09/27/2021 12:51 Coronary artery GRAFT;SINGLE ARTERIAL PM EDT disease involving GRAFT (WRVU 33.75) [place] heart with unstable angina pectoris, unspecified vessel or lesion type PREPARE RBC STAT 09/27/2021 12:05 Results for this PM EDT procedure are i n the results section. POCT GLUCOSE Routine 09/27/2021 11:37 Results for this AM EDT procedure are i n the results section. ENDOSCOPIC HARVEST Routine 09/27/2021 10:15 Coronary artery VEIN(S) FOR CABG AM EDT disease involving [place] heart with unstable angina pectoris, unspecified vessel or lesion type @CABG,USING ARTERIAL Routine 09/27/2021 10:15 Coronary artery GRAFT;SINGLE ARTERIAL AM EDT disease involving GRAFT [place] heart with unstable angina pectoris, unspecified vessel or lesion type @CABG;3 VENOUS GRAFTS & Routine 09/27/2021 10:15 Coronary meghan ry ARTERIAL GRAFT AM EDT disease involving [place] heart with unstable angina pectoris, unspecified vessel or lesion type LAB SCAN 09/27/2021 12:00 Results for this AM EDT procedure are i n the results section. documented in this encounter Results TONEY, legs, multiple levels (10/22/2021 10:44 AM EDT) Component Value Ref Test Analysis Performed At [facility] Range Method Time Signature VB Text Department: Vascular Surgery Lab VASCUBASE Report Patient: [id number] (YENIFER RICHY) CPT: 62644 Referring Physician: ABDON ARREGUIN ?? Indications: S/p [...] Signature POC Glucose 114 65 - 199 [facility] Comment: Supplemental ranges: <140 mg/dL before meals <180 mg/dL all other times of the day Specimen Anatomical Collection Method Collection Time Receive d Time (Source) Location / / Volume Laterality Blood 10/03/2021 11:35 10/03/2021 AM EDT 11:35 AM EDT Abdon Arreguin MD POINT OF CARE TEST ORDERABLE S Performing Organization Address City/State/[place] [address] POCT Glucose (10/03/2021 7:23 AM EDT) athologist Signature POC Glucose 122 65 - 199 [facility] mg/dL [facility] Comment: Supplemental ranges: <140 mg/dL before meals <180 mg/dL all other times of the day Specimen Anatomical Collection Method Collection Time Receive d Time (Source) Location / / Volume Laterality Blood 10/03/2021 7:23 AM 2 7:23 EDT AM EDT Abdon Arreguin MD POINT OF CARE TEST ORDERABLE S Performing Organization Address City/[facility]/[place] [address] Heparin (unfractionated) Level (10/03/2021 4:26 AM EDT) athologist Signature Heparin UFH 0.27 IU/mL [facility]OR[facility] Comment: Heparin (anti-Xa) levels should be [...] Arreguin MD HEMATOLOGY ORDERABLES Performing Organization Address City/[facility]/ZIP Code Phon e Number [place] [id number] (ABNORMAL) Differential, Automated (10/03/2021 4:26 AM EDT) [facility] gist Method Time Signature Neutrophils % 63.0 % [facility] Neutr Abs (ANC) 6.33 (H) 1.70 - [facility] 6.10 [facility] x10(3)/[facility] L LABORATORY Lymphocytes % 18.6 % [facility] Lymphocytes Abs 1.9 0.9 - 3.2 [facility] x10(3)/[facility] LABORATORY Monocytes % 11.3 % [facility] Monocyte Abs 1.1 (H) 0.3 - 0.9 [facility] x10(3)/[facility] LABORATORY Eosinophils % 5.9 % [facility] Eosinophils Abs 0.6 (H) 0.0 - 0.4 [facility] x10(3)/[facility] LABORATORY Basophils % 0.5 % [facility] Basophils Abs 0.0 0.0 - 0.1 [facility] x10(3)/[facility] LABORATORY Immature Gran % 0.70 % [facility] Comment: Immature granulocytes(IG's)percentage an d absolute count will include metamyelocytes, myelocytes, and promyelo cytes. Blood smears from CBCs yielding IG's will be scanned manually for concor dance. If this scan disagrees with the automated IG or if promyelocytes are not ed, a manual differential will be performed. Anna Gran Abs 0.07 (H) 0.00 - 0.04 x10(3)/[facility] LABORATORY Specimen Anatomical Collection Method Collection Time Receive d Time (Source) Location / / Volume Laterality Blood 10/03/2021 4:26 AM 4:41 EDT AM EDT Resulting Agency Comment Spec In Lab Leilani CONTRERAS HEMATOLOGY ORDERABLES Performing Organization Address City/State/[place] [address] (ABNORMAL) Hemogram (10/03/2021 4:26 AM EDT) Analysis Performed At Patho logist Time Signature WBC 10.0 (H) 4.0 - 9.5 [facility] x10(3)/[facility] LABORATORY RBC 3.35 (L) 4.58 - [facility] 5.54 [facility] x10(6)/[facility] LABORATORY Hemoglobin 9.8 (L) 13.7 - [facility] 16.[facility] g/dL [facility] Hematocrit 29.4 (L) 40.5 - EVELINE AUDREY 48.5 % [facility] MCV 87.8 82.9 - [facility] 93.1 [facility] LABORATORY MCH 29.3 27.5 - EVELINE AUDREY 32.1 pg [facility] MCHC 33.3 32.0 - [facility] 35.7 g/dL [facility] Platelets 238 145 - 357 [facility] x10(3)/[facility] LABORATORY RDWSD 46.2 (H) 36.0 - [facility] AUDREY 45.0 [facility] [facility] LABORATORY RDWCV 14.4 (H) 11.4 - [facility] 13.8 % [facility] LABORATORY MPV 11.0 7.6 - 12.9 [facility] LABORATORY nRBC % Auto 0.0 % [facility] LABORATORY nRBC Abs Auto 0.000 0.000 - [facility] x10(3)/[facility] LABORATORY Specimen Anatomical Collection Method Collection Time Receive d Time (Source) Location / / Volume Laterality Blood 10/03/2021 4:26 AM 2 4:41 EDT AM EDT Resulting Agency Comment Spec In Lab Leilani CONTRERAS HEMATOLOGY ORDERABLES Performing Organization Address City/State/[place] [address] (ABNORMAL) Prothrombin Time (10/03/2021 4:26 AM EDT) P athologist Signature PT 13.7 (H) 9.4 - 12.5 [facility] LABORATORY INR 1.2 [facility] LABORATORY Comment: An INR <2.0 [...] Arreguin MD HEMATOLOGY ORDERABLES Performing Organization Address City/[facility]/[place] [address] Potassium (10/03/2021 4:26 AM EDT) athologist Signature Potassium 4.1 3.5 - 5.0 [facility] mmol/L [facility] LABORATORY Comment: Please note: ??Patients [...] Arreguin MD CHEMISTRY ORDERABLES Performing Organization Address City/[facility]/[place] [address] POCT Glucose (10/02/2021 8:15 PM EDT) athologist Signature POC Glucose 151 65 - 199 [facility] mg/dL [facility] LABORATORY Comment: Supplemental ranges: <140 mg/dL before meals <180 mg/dL all other times of the day Specimen Anatomical Collection Method Collection Time Receive d Time (Source) Location / / Volume Laterality Blood 10/02/2021 8:15 PM 2 8:15 EDT PM EDT Abdon Arreguin MD POINT OF CARE TEST ORDERABLE S Performing Organization Address City/[facility]/[place] [address] POCT Glucose (10/02/2021 4:14 PM EDT) athologist Signature POC Glucose 140 65 - 199 [facility] mg/dL [facility] LABORATORY Comment: Supplemental ranges: <140 mg/dL before meals <180 mg/dL all other times of the day Specimen Anatomical Collection Method Collection Time Receive d Time (Source) Location / / Volume Laterality Blood 10/02/2021 4:14 PM 2 4:14 EDT PM EDT Abdon Arreguin MD POINT OF CARE TEST ORDERABLE S Performing Organization Address City/[facility]/[place] [address] Potassium (10/02/2021 2:28 PM EDT) athologist Signature Potassium 4.2 3.5 - 5.0 [facility] mmol/L [facility] LABORATORY Comment: Please note: ??Patients [...] Arreguin MD CHEMISTRY ORDERABLES Performing Organization Address City/[facility]/[place] [address] POCT Glucose (10/02/2021 10:55 AM EDT) athologist Signature POC Glucose 153 65 - 199 [facility] mg/dL [facility] LABORATORY Comment: Supplemental ranges: <140 mg/dL before meals <180 mg/dL all other times of the day Specimen Anatomical Collection Method Collection Time Receive d Time (Source) Location / / Volume Laterality Blood 10/02/2021 10:55 10/02/2021 AM EDT 10:55 AM EDT Abdon Arreguin MD POINT OF CARE TEST ORDERABLE S Performing Organization Address City/[facility]/[place] [address] POCT Glucose (10/02/2021 7:33 AM EDT) athologist Signature POC Glucose 143 65 - 199 [facility] mg/dL [facility] LABORATORY Comment: Supplemental ranges: <140 mg/dL before meals <180 mg/dL all other times of the day Specimen Anatomical Collection Method Collection Time Receive d Time (Source) Location / / Volume Laterality Blood 10/02/2021 7:33 AM 2 7:33 EDT AM EDT Abdon Arreguin MD POINT OF CARE TEST ORDERABLE S Performing Organization Address City/[facility]/[place] [address] Heparin (unfractionated) Level (10/02/2021 3:59 AM EDT) athologist Signature Heparin UFH 0.24 IU/mL [facility] LABORATORY Comment: Heparin (anti-Xa) levels should be [...] Organization Address City/State/[place] [address] [facility] LAB[address]ORY Drive (ABNORMAL) Differential, Automated (10/02/2021 3:59 AM EDT) [facility] gist Method Time Signature Neutrophils % 62.1 % [facility] LABORATORY Neutr Abs (ANC) 6.87 (H) 1.70 - [facility] 6.10 [facility] x10(3)/[facility] L LABORATORY Lymphocytes % 18.4 % [facility] LABORATORY Lymphocytes Abs 2.0 0.9 - 3.2 [facility] x10(3)/[facility] LABORATORY Monocytes % 12.9 % [facility] LABORATORY Monocyte Abs 1.4 (H) 0.3 - 0.9 [facility] x10(3)/[facility] LABORATORY Eosinophils % 5.1 % [facility] LABORATORY Eosinophils Abs 0.6 (H) 0.0 - 0.4 [facility] x10(3)/[facility] LABORATORY Basophils % 0.9 % [facility] LABORATORY Basophils Abs 0.1 0.0 - 0.1 [facility] x10(3)/[facility] LABORATORY Immature Gran % 0.60 % [facility] LABORATORY Comment: Immature granulocytes(IG's)percentage an d absolute count will include metamyelocytes, myelocytes, and promyelo cytes. Blood smears from CBCs yielding IG's will be scanned manually for concor dance. If this scan disagrees with the automated IG or if promyelocytes are not ed, a manual differential will be performed. Anna Gran Abs 0.07 (H) 0.00 - 0.04 x10(3)/[facility] LABORATORY Specimen Anatomical Collection Method Collection Time Receive d Time (Source) Location / / Volume Laterality Blood 10/02/2021 3:59 AM 4:25 EDT AM EDT Resulting Agency Comment Spec In Lab Leilani CONTRERAS HEMATOLOGY ORDERABLES Performing Organization Address City/State/[place] [address] (ABNORMAL) Hemogram (10/02/2021 3:59 AM EDT) Analysis Performed At Patho logist Time Signature WBC 11.1 (H) 4.0 - 9.5 [facility] x10(3)/[facility] LABORATORY RBC 3.62 (L) 4.58 - [facility] 5.54 [facility] x10(6)/[facility] LABORATORY Hemoglobin 10.3 (L) 13.7 - [facility] 16.[facility] g/dL [facility] LABORATORY Hematocrit 31.7 (L) 40.5 - [facility] 48.5 % [facility] LABORATORY MCV 87.6 82.9 - [facility] 93.1 [facility] LABORATORY MCH 28.5 27.5 - [facility] 32.1 pg [facility] LABORATORY MCHC 32.5 32.0 - [facility] 35.7 g/dL [facility] LABORATORY Platelets 190 145 - 357 [facility] x10(3)/[facility] LABORATORY RDWSD 45.9 (H) 36.0 - [facility] 45.0 [facility] LABORATORY RDWCV 14.4 (H) 11.4 - [facility] 13.8 % [facility] LABORATORY MPV 11.1 7.6 - 12.9 [facility] LABORATORY nRBC % Auto 0.0 % [facility] nRBC Abs Auto 0.000 0.000 - [facility] 0.000 [facility] x10(3)/[facility] LABORATORY Specimen Anatomical Collection Method Collection Time Receive d Time (Source) Location / / Volume Laterality Blood 10/02/2021 3:59 AM 2 4:25 EDT AM EDT Resulting Agency Comment Spec In Lab Leilani CONTRERAS HEMATOLOGY ORDERABLES Performing Organization Address City/State/[place] [address] (ABNORMAL) Prothrombin Time (10/02/2021 3:59 AM EDT) P athologist Signature PT 12.6 (H) 9.4 - 12.5 [facility] LABORATORY INR 1.1 [facility] LABORATORY Comment: An INR <2.0 [...] Arreguin MD HEMATOLOGY ORDERABLES Performing Organization Address City/[facility]/[place] [address] (ABNORMAL) Potassium (10/02/2021 3:59 AM EDT) athologist Signature Potassium 3.4 (L) 3.5 - 5.0 [facility] mmol/L [facility] LABORATORY Comment: Please note: ??Patients [...] Resulting Agency Comment Spec In Lab Abdon rAreguin MD CHEMISTRY ORDERABLES Performing Organization Address City/[facility]/[place] [address] POCT Glucose (10/01/2021 7:43 PM EDT) athologist Signature POC Glucose 152 65 - 199 [facility] mg/dL [facility] LABORATORY Comment: Supplemental ranges: <140 mg/dL before meals <180 mg/dL all other times of the day Specimen Anatomical Collection Method Collection Time Receive d Time (Source) Location / / Volume Laterality Blood 10/01/2021 7:43 PM 2 7:43 EDT PM EDT Abdon Arreguin MD POINT OF CARE TEST ORDERABLE S Performing Organization Address City/[facility]/[place] [address] POCT Glucose (10/01/2021 5:08 PM EDT) athologist Signature POC Glucose 131 65 - 199 [facility] mg/dL [facility] LABORATORY Comment: Supplemental ranges: <140 mg/dL before meals <180 mg/dL all other times of the day Specimen Anatomical Collection Method Collection Time Receive d Time (Source) Location / / Volume Laterality Blood 10/01/2021 5:08 PM 2 5:08 EDT PM EDT Abdon Arreguin MD POINT OF CARE TEST ORDERABLE S Performing Organization Address City/State/[place] [address] POCT Glucose (10/01/2021 11:49 AM EDT) athologist Signature POC Glucose 196 65 - 199 [facility] mg/dL [facility] LABORATORY Comment: Supplemental ranges: <140 mg/dL before meals <180 mg/dL all other times of the day Specimen Anatomical Collection Method Collection Time Receive d Time (Source) Location / / Volume Laterality Blood 10/01/2021 11:49 10/01/2021 AM EDT 11:49 AM EDT Abdon Arreguin MD POINT OF CARE TEST ORDERABLE S Performing Organization Address City/State/[place] [address] POCT Glucose (10/01/2021 7:54 AM EDT) athologist Signature POC Glucose 159 65 - 199 [facility] mg/dL [facility] LABORATORY Comment: Supplemental ranges: <140 mg/dL before meals <180 mg/dL all other times of the day Specimen Anatomical Collection Method Collection Time Receive d Time (Source) Location / / Volume Laterality Blood 10/01/2021 7:54 AM 2 7:54 EDT AM EDT Abdon Arreguin MD POINT OF CARE TEST ORDERABLE S Performing Organization Address City/State/[place] [address] Heparin (unfractionated) Level (10/01/2021 3:25 AM EDT) athologist Signature Heparin UFH 0.22 IU/mL [facility] LABORATORY Comment: Heparin (anti-Xa) levels should be [...] Organization Address City/State/[place] [address] (ABNORMAL) Differential, Automated (10/01/2021 3:25 AM EDT) [facility] Method Time Signature Neutrophils % 72.5 % [facility] LABORATORY Neutr Abs (ANC) 9.30 (H) 1.70 - [facility] 6.10 [facility] x10(3)/[facility] LABORATORY Lymphocytes % 12.3 % [facility] LABORATORY Lymphocytes Abs 1.6 0.9 - 3.2 [facility] x10(3)/[facility] LABORATORY Monocytes % 11.2 % [facility] LABORATORY Monocyte Abs 1.4 (H) 0.3 - 0.9 [facility] x10(3)/[facility] LABORATORY Eosinophils % 3.0 % [facility] LABORATORY Eosinophils Abs 0.4 0.0 - 0.4 [facility] x10(3)/[facility] LABORATORY Basophils % 0.5 % [facility] LABORATORY Basophils Abs 0.1 0.0 - 0.1 [facility] x10(3)/[facility] LABORATORY Immature Gran % 0.50 % [facility] LABORATORY Comment: Immature granulocytes(IG's)percentage an d absolute count will include metamyelocytes, myelocytes, and promyelo cytes. Blood smears from CBCs yielding IG's will be scanned manually for amado li. If this scan disagrees with the automated IG or if promyelocytes are not ed, a manual differential will be performed. Anna Gran Abs 0.06 (H) 0.00 - 0.04 x10(3)/[facility] LABORATORY Specimen Anatomical Collection Method Collection Time Receive d Time (Source) Location / / Volume Laterality Blood 10/01/2021 3:25 AM 3:57 EDT AM EDT Resulting Agency Comment Spec In Lab Leilani CONTRERAS HEMATOLOGY ORDERABLES Performing Organization Address City/State/[place] [address] (ABNORMAL) Hemogram (10/01/2021 3:25 AM EDT) Analysis Performed At Patho logist Time Signature WBC 12.8 (H) 4.0 - 9.5 [facility] x10(3)/[facility] LABORATORY RBC 3.36 (L) 4.58 - [facility] 5.54 [facility] x10(6)/[facility] LABORATORY Hemoglobin 9.8 (L) 13.7 - [facility] 16.[facility] g/dL [facility] LABORATORY Hematocrit 29.4 (L) 40.5 - [facility] 48.5 % [facility] LABORATORY MCV 87.5 82.9 - [facility] 93.1 [facility] LABORATORY MCH 29.2 27.5 - [facility] 32.1 pg [facility] LABORATORY MCHC 33.3 32.0 - [facility] 35.7 g/dL [facility] LABORATORY Platelets 170 145 - 357 [facility] x10(3)/[facility] LABORATORY RDWSD 45.3 (H) 36.0 - [facility] 45.0 [facility] LABORATORY RDWCV 14.2 (H) 11.4 - [facility] 13.8 % [facility] LABORATORY MPV 11.2 7.6 - 12.9 [facility] LABORATORY nRBC % Auto 0.0 % [facility] LABORATORY nRBC Abs Auto 0.000 0.000 - [facility] 0.000 [facility] x10(3)/[facility] LABORATORY Specimen Anatomical Collection Method Collection Time Receive d Time (Source) Location / / Volume Laterality Blood 10/01/2021 3:25 AM 2 3:57 EDT AM EDT Resulting Agency Comment Spec In Lab Leilani CONTRERAS HEMATOLOGY ORDERABLES Performing Organization Address City/[facility]/[place] [address] Prothrombin Time (10/01/2021 3:25 AM EDT) athologist Signature PT 12.4 9.4 - 12.5 [facility] LABORATORY INR 1.1 [facility] LABORATORY Comment: An INR <2.0 [...] Arreguin MD HEMATOLOGY ORDERABLES Performing Organization Address City/[facility]/ZIP [facility] [place] [address] (ABNORMAL) Potassium (10/01/2021 3:25 AM EDT) P athologist Signature Potassium 3.4 (L) 3.5 - 5.0 [facility] mmol/L [facility] LABORATORY Comment: Please note: ??Patients [...] Arreguin MD CHEMISTRY ORDERABLES Performing Organization Address City/[facility]/[place] [address] Heparin (unfractionated) Level (09/30/2021 8:23 PM EDT) athologist Signature Heparin UFH 0.24 IU/mL [facility] LABORATORY Comment: Heparin (anti-Xa) levels should be [...] Arreguin MD HEMATOLOGY ORDERABLES Performing Organization Address City/[facility]/[place] [address] POCT Glucose (09/30/2021 7:42 PM EDT) athologist Signature POC Glucose 188 65 - 199 [facility] mg/dL [facility] LABORATORY Comment: Supplemental ranges: <140 mg/dL before meals <180 mg/dL all other times of the day Specimen Anatomical Collection Method Collection Time Receive d Time (Source) Location / / Volume Laterality Blood 09/30/2021 7:42 PM 2 7:42 EDT PM EDT Abdon Arreguin MD POINT OF CARE TEST ORDERABLE S Performing Organization Address City/[facility]/ZIP Code Phon e Number [address] POCT Glucose (09/30/2021 4:22 PM EDT) athologist Signature POC Glucose 164 65 - 199 [facility] mg/dL [facility] LABORATORY Comment: Supplemental ranges: <140 mg/dL before meals <180 mg/dL all other times of the day Specimen Anatomical Collection Method Collection Time Receive d Time (Source) Location / / Volume Laterality Blood 09/30/2021 4:22 PM 2 4:22 EDT PM EDT Abdon Arreguin MD POINT OF CARE TEST ORDERABLE S Performing Organization Address [facility] Code Phon e Number [address] Heparin (unfractionated) Level (09/30/2021 1:48 PM EDT) athologist Signature Heparin UFH 0.23 IU/mL [facility] LABORATORY Comment: Heparin (anti-Xa) levels should be [...] Arreguin MD HEMATOLOGY ORDERABLES Performing Organization Address City/[facility]/ZIP Code Phon e Number [address] POCT Glucose (09/30/2021 11:39 AM EDT) athologist Signature POC Glucose 158 65 - 199 [facility] mg/dL [facility] LABORATORY Comment: Supplemental ranges: <140 mg/dL before meals <180 mg/dL all other times of the day Specimen Anatomical Collection Method Collection Time Receive d Time (Source) Location / / Volume Laterality Blood 09/30/2021 11:39 09/30/2021 AM EDT 11:39 AM EDT Abdon Arreguin MD POINT OF CARE TEST ORDERABLE S Performing Organization Address City/State/[place] [address] ECHOCARDIO[address] LMTD W CONTRAST [...] 10:39 AMBP: 128/89 mmHg ? Patient Location: [facility] C450 A : 1945 ? Height: 170 cm ? Account: [id number] Age: 76 yrs ? Weight: 115 kg Gender: Male ?BSA: 2.2 m2 Ordering Physician: KALLIE^ABDON^P Referring Physician: Abdon Arreguin Performed By: Azar Argueta, VINICIO, RCS Exam Location: [facility]. Interpretation Summary Patient is in atrial fibrillation during the study. Technically difficult study. LV function is normal with LVEF of 65% w ith beat to beat variability. There is a possible focal apical wall motion abnorm ality. Right ventricular size and function are normal. There is no hemodynamically significant valvular disease present. No prior transthoracic echo for comparis on. Procedure Limited - [id number]. Image enhancement Optis on was used for [...] 09/10 10:39 AMBP: 128/89 mmHg Patient Location: [address] : 1945 Height: 170 cm Account: [id number] Age: 76 yrs Weight: 115 kg Gender: Male BSA: 2.2 m2 Ordering Physician: PO^P Referring Physician: Abdon Arreguin Performed By: Azar Argueta, ACS, [facility] Exam Location: [facility]. Interpretation Summary Patient is in atrial fibrillation during the study. Technically difficult study. LV function is normal with LVEF of 65% w ith beat to beat variability. There is a possible focal apical wall motion abnorm ality. Right ventricular size and function are normal. There is no hemodynamically significant valvular disease present. No prior transthoracic echo for comparis on. Procedure Limited - [id number]. Image enhancement Optis on was used for [...] who have questions please contact the health long term care phlebotomist that requested your imaging first. ? Narrative 09/30/2021 11:39 AM EDT EXAMINATION: XR [...] ho have questions please contact the health long term care phlebotomist that requested your imaging first. Abdon Arreguin MD IMG DX ORDERABLES Prothrombin Time (09/30/2021 9:12 AM EDT) athologist Signature PT 12.2 9.4 - 12.5 [facility] LABORATORY INR 1.1 [facility] LABORATORY Comment: An INR <2.0 [...] Organization Address City/State/[place] [address] (ABNORMAL) Differential, Automated (09/30/2021 3:25 AM EDT) [facility] gist Method Time Signature Neutrophils % 80.1 % [facility] LABORATORY Neutr Abs (ANC) 11.70 (H) 1.70 - [facility] 6.10 [facility] x10(3)/[facility] L LABORATORY Lymphocytes % 9.9 % [facility] LABORATORY Lymphocytes Abs 1.4 0.9 - 3.2 [facility] x10(3)/[facility] LABORATORY Monocytes % 9.5 % [facility] LABORATORY Monocyte Abs 1.4 (H) 0.3 - 0.9 [facility] x10(3)/[facility] LABORATORY Eosinophils % 0.0 % [facility] LABORATORY Eosinophils Abs 0.0 0.0 - 0.4 [facility] x10(3)/[facility] LABORATORY Basophils % 0.1 % [facility] LABORATORY Basophils Abs 0.0 0.0 - 0.1 [facility] x10(3)/[facility] LABORATORY Immature Gran % 0.40 % [facility] LABORATORY Comment: Immature granulocytes(IG's)percentage an d absolute count will include metamyelocytes, myelocytes, and promyelo cytes. Blood smears from CBCs yielding IG's will be scanned manually for concor dance. If this scan disagrees with the automated IG or if promyelocytes are not ed, a manual differential will be performed. Anna Gran Abs 0.06 (H) 0.00 - 0.04 x10(3)/[facility] LABORATORY Specimen Anatomical Collection Method Collection Time Receive d Time (Source) Location / / Volume Laterality Blood 09/30/2021 3:25 AM 3:41 EDT AM EDT Resulting Agency Comment Spec In Lab Che Hayden MD HEMATOLOGY ORDERABLES Performing Organization Address City/State/[place] [address] (ABNORMAL) Hemogram (09/30/2021 3:25 AM EDT) Analysis Performed At Patho logist Time Signature WBC 14.6 (H) 4.0 - 9.5 [facility] x10(3)/[facility] LABORATORY RBC 3.65 (L) 4.58 - [facility] 5.54 [facility] x10(6)/[facility] LABORATORY Hemoglobin 10.6 (L) 13.7 - [facility] 16.5 g/dL [facility] LABORATORY Hematocrit 32.5 (L) 40.5 - [facility] 48.5 % [facility] LABORATORY MCV 89.0 82.9 - [facility] 93.1 [facility] LABORATORY MCH 29.0 27.5 - [facility] 32.1 pg [facility] LABORATORY MCHC 32.6 32.0 - [facility] 35.7 g/dL [facility] LABORATORY Platelets 143 (L) 145 - 357 [facility] x10(3)/[facility] LABORATORY RDWSD 45.8 (H) 36.0 - [facility] 45.0 [facility] LABORATORY RDWCV 14.1 (H) 11.4 - [facility] 13.8 % [facility] LABORATORY MPV 10.6 7.6 - 12.9 [facility] LABORATORY nRBC % Auto 0.0 % [facility] LABORATORY nRBC Abs Auto 0.000 0.000 - [facility] x10(3)/[facility] LABORATORY Specimen Anatomical Collection Method Collection Time Receive d Time (Source) Location / / Volume Laterality Blood 09/30/2021 3:25 AM 2 3:41 EDT AM EDT Resulting Agency Comment Spec In Lab Che Hayden MD HEMATOLOGY ORDERABLES Performing Organization Address City/State/[place] [address] (ABNORMAL) Basic Metabolic Panel (non-fasting) (09/30/2021 3:25 AM EDT) P athologist Signature Glucose Lvl 142 65 - 199 [facility] mg/dL [facility] LABORATORY Comment: Diabetes: >=200 mg/dL plus symp toms BUN 14 10 - 20 mg/dL [facility] LABORATORY Creatinine 0.71 (L) 0.80 - 1.50 mg/dL [facility] LABORATORY Sodium 138 135 - 145 mmol/L [facility] [facility] Potassium 4.0 3.5 - 5.0 mmol/L [facility] Comment: Please note: ??Patients with WBC >100,00 0 may have falsely elevated Potassium levels. ??For accurate Potassium quantif ication in these patients send serum separator tube (gold top) for subsequent determinations. ??Contact the Clinical Chemistry Laboratory if there are any qu estions. Chloride 104 98 - 107 mmol/L [facility] CO2 24 22 - 31 mmol/L [facility] Anion Gap 10 5 - 15 mmol/L [facility] Calcium 8.3 (L) 8.5 - 10.5 mg/dL [facility] Comment: result rechecked-sf Estimated GFR 96 >=60 mL/min/1.73 m?? [facility] Comment: This patient's estimated [...] Organization Address City/State/ZIP Code Phon e Number [place] [phone] LAB[address]ATORY Drive (ABNORMAL) Differential, Automated (09/29/2021 8:59 PM EDT) [facility] gist Method Time Signature Neutrophils % 89.4 % [facility] Neutr Abs (ANC) 14.75 (H) 1.70 - [facility] 6.10 [facility] x10(3)/[facility] L LABORATORY Lymphocytes % 4.2 % [facility] Lymphocytes Abs 0.7 (L) 0.9 - 3.2 [facility] x10(3)/[facility] LABORATORY Monocytes % 5.6 % [facility] Monocyte Abs 0.9 0.3 - 0.9 [facility] x10(3)/[facility] LABORATORY Eosinophils % 0.1 % [facility] Eosinophils Abs 0.0 0.0 - 0.4 [facility] x10(3)/[facility] LABORATORY Basophils % 0.2 % [facility] Basophils Abs 0.0 0.0 - 0.1 [facility] x10(3)/[facility] LABORATORY Immature Gran % 0.50 % [facility] Comment: Immature granulocytes(IG's)percentage an d absolute count will include metamyelocytes, myelocytes, and promyelo cytes. Blood smears from CBCs yielding IG's will be scanned manually for concor dance. If this scan disagrees with the automated IG or if promyelocytes are not ed, a manual differential will be performed. Anna Gran Abs 0.08 (H) 0.00 - 0.04 x10(3)/[facility] LABORATORY Specimen Anatomical Collection Method Collection Time Receive d Time (Source) Location / / Volume Laterality Blood 09/29/2021 8:59 PM 9:10 EDT PM EDT Resulting Agency Comment Spec In Lab Sam CONTRERAS HEMATOLOGY ORDERABLES Performing Organization Address City/State/ZIP Code Phon e Number [place] [phone] HOSPITAL LAB[address]ATORY Drive (ABNORMAL) Hemogram (09/29/2021 8:59 PM EDT) Analysis Performed At Patho logist Time Signature WBC 16.5 (H) 4.0 - 9.5 [facility] x10(3)/[facility] LABORATORY RBC 3.88 (L) 4.58 - [facility] 5.54 [facility] x10(6)/[facility] LABORATORY Hemoglobin 11.1 (L) 13.7 - [facility] 16.5 g/dL [facility] Hematocrit 33.9 (L) 40.5 - [facility] 48.5 % [facility] MCV 87.4 82.9 - [facility] 93.[facility] fL [facility] MCH 28.6 27.5 - [facility] 32.1 pg [facility] MCHC 32.7 32.0 - [facility] 35.7 g/dL [facility] Platelets 145 145 - 357 [facility] x10(3)/[facility] LABORATORY RDWSD 45.8 (H) 36.0 - [facility] 45.0 [facility] LABORATORY RDWCV 14.3 (H) 11.4 - [facility] 13.8 % [facility] MPV 11.0 7.6 - 12.9 [facility] LABORATORY nRBC % Auto 0.0 % [facility] nRBC Abs Auto 0.000 0.000 - [facility] 0.000 [facility] x10(3)/[facility] LABORATORY Specimen Anatomical Collection Method Collection Time Receive d Time (Source) Location / / Volume Laterality Blood 09/29/2021 8:59 PM 9:10 EDT PM EDT Resulting Agency Comment Spec In Lab Sam CONTRERAS HEMATOLOGY ORDERABLES Performing Organization Address City/State/[place] [address] (ABNORMAL) BLOOD GAS 2 ARTERIAL (09/29/2021 1:32 PM EDT) Analysis Performed At Patho logist Time Signature pH Art 7.36 7.35 - [facility] 7.45 [facility] pCO2 Art 39 35 - 45 [facility] mmHg [facility] pO2 Art 209 (H) 85 - 104 [facility] mmHg [facility] HCO3 Art 21.2 20.0 - [facility] 26.0 [facility] mmol/L [facility] BE Art -4.0 (L) -3.0 - 3.0 [facility] mmol/L [facility] Hgb Blood Gas 11.5 (L) 13.7 - [facility] 16.5 g/dL [facility] O2HB Art 98.5 (H) 94.0 - [facility] 97.0 % [facility] COHB Art 0.4 % [facility] Comment: Nonsmokers: 0.5-1.5% COHB Smokers: Variable, but usually less than 10% Toxic: 20-30% COHB Lethal: Greater than 60% COHB METHB Art 0.3 <=1.5 % [facility] Na Whole Blood 134 (L) 135 - 145 mmol/L [facility] K Whole Blood 3.8 3.5 - 5.0 mmol/L [facility] Comment: Please note: Patients with WBC >100,000 may have falsely elevated Potassium levels. Contact the Clinical Chemistry L aboratory if there are any questions. ICa Whole Blood 1.12 (L) 1.15 - 1.33 mmol/L [facility] Comment: Note: ??Total bilirubin higher than 20 m g/dL may lead to falsely low ionized calcium. CL Whole Blood 104 98 - 107 mmol/L [facility] Gluc Whole Bld 134 65 - 199 mg/dL [facility] Comment: Diabetes: >=200 mg/dL plus symp toms. Lactate WB 1.4 0.5 - 2.2 mmol/L [facility] FIO2 Art 60 % [facility] Flow Art 1.0 LPM [facility] PF Ratio Art 348 [facility] Temp Art 38.2 Celsius [facility] Specimen Anatomical Collection Method Collection Time Receive d Time (Source) Location / / Volume Laterality Blood 09/29/2021 1:32 PM 2 1:32 EDT PM EDT Abdon Arreguin MD CHEMISTRY ORDERABLES Performing Organization Address City/State/[place] [address] Arterial Duplex Leg, Unil (09/29/2021 12:08 PM EDT) Component Value Ref Test Analysis [facility] Range Method Time Signature VB Text Department: Vascular Surgery Lab VASCUBASE Report Patient: [id number] ([address]) CPT: 01765 Referring Physician: JOSELITO WASHBURN ?? Phone: Indications: [...] Washburn MD VASCULAR ORDERABLES Performing Organization Address City/[facility]/ZIP Code Phon e Number [email or web address] Potassium (09/29/2021 5:51 AM EDT) athologist Signature Potassium 3.9 3.5 - 5.0 [facility] mmol/L [facility] Comment: Please note: ??Patients [...] Arreguin MD CHEMISTRY ORDERABLES Performing Organization Address City/[facility]/[place] [address] POCT Glucose (09/28/2021 4:29 PM EDT) athologist Signature POC Glucose 134 65 - 199 [facility] Comment: Supplemental ranges: <140 mg/dL before meals <180 mg/dL all other times of the day Specimen Anatomical Collection Method Collection Time Receive d Time (Source) Location / / Volume Laterality Blood 09/28/2021 4:29 PM 4:29 EDT PM EDT Abdon Arreguin MD POINT OF CARE TEST ORDERABLE S Performing Organization Address City/State/ZIP Code Phon e Number [place] [phone]ORY Drive POCT Glucose (09/28/2021 12:19 PM EDT) athologist Signature POC Glucose 149 65 - 199 [facility] [place] mg/dL [facility] Comment: Supplemental ranges: <140 mg/dL before meals <180 mg/dL all other times of the day Specimen Anatomical Collection Method Collection Time Receive d Time (Source) Location / / Volume Laterality Blood 09/28/2021 12:19 09/28/2021 PM EDT 12:19 PM EDT Abdon Arreguin MD POINT OF CARE TEST ORDERABLE S Performing Organization Address City/State/ZIP Code Phon e Number [place] [phone] POCT Glucose (09/28/2021 10:57 AM EDT) athologist Signature POC Glucose 138 65 - 199 EVELINE AUDREY mg/dL [facility] Comment: Supplemental ranges: <140 mg/dL before meals <180 mg/dL all other times of the day Specimen Anatomical Collection Method Collection Time Receive d Time (Source) Location / / Volume Laterality Blood 09/28/2021 10:57 09/28/2021 AM EDT 10:57 AM EDT Abdon Arreguin MD POINT OF CARE TEST ORDERABLE S Performing Organization Address City/State/[place] [address] POCT Glucose (09/28/2021 9:49 AM EDT) athologist Signature POC Glucose 131 65 - 199 EVELINE AUDREY mg/dL [facility] Comment: Supplemental ranges: <140 mg/dL before meals <180 mg/dL all other times of the day Specimen Anatomical Collection Method Collection Time Receive d Time (Source) Location / / Volume Laterality Blood 09/28/2021 9:49 AM 2 9:49 EDT AM EDT Abdon Arreguin MD POINT OF CARE TEST ORDERABLE S Performing Organization Address City/State/ZIP Code Phon e Number [address] POCT Glucose (09/28/2021 8:16 AM EDT) athologist Signature POC Glucose 144 65 - 199 EVEL[facility] [place] mg/dL [facility] Comment: Supplemental ranges: <140 mg/dL before meals <180 mg/dL all other times of the day Specimen Anatomical Collection Method Collection Time Receive d Time (Source) Location / / Volume Laterality Blood 09/28/2021 8:16 AM 2 8:16 EDT AM EDT Abdon Arreguin MD POINT OF CARE TEST ORDERABLE S Performing Organization Address City/[facility]/ZIP Code Phon e Number [address] POCT Glucose (09/28/2021 7:00 AM EDT) athologist Signature POC Glucose 144 65 - 199 [place] mg/dL [facility] Comment: Supplemental ranges: <140 mg/dL before meals <180 mg/dL all other times of the day Specimen Anatomical Collection Method Collection Time Receive d Time (Source) Location / / Volume Laterality Blood 09/28/2021 7:00 AM 2 7:00 EDT AM EDT Abdon Arreguin MD POINT OF CARE TEST ORDERABLE S Performing Organization Address City/State/ZIP Code Phon e Number [address] POCT Glucose (09/28/2021 6:41 AM EDT) athologist Signature POC Glucose 128 65 - 199 EVEL[facility] [place] mg/dL [facility] Comment: Supplemental ranges: <140 mg/dL before meals <180 mg/dL all other times of the day Specimen Anatomical Collection Method Collection Time Receive d Time (Source) Location / / Volume Laterality Blood 09/28/2021 6:41 AM 2 6:41 EDT AM EDT Abdon Arreguin MD POINT OF CARE TEST ORDERABLE S Performing Organization Address City/State/[place] [address] POCT Glucose (09/28/2021 5:56 AM EDT) athologist Signature POC Glucose 154 65 - 199 EVELINE AUDREY mg/dL [facility] Comment: Supplemental ranges: <140 mg/dL before meals <180 mg/dL all other times of the day Specimen Anatomical Collection Method Collection Time Receive d Time (Source) Location / / Volume Laterality Blood 09/28/2021 5:56 AM 2 5:56 EDT AM EDT Abdon Arreguin MD POINT OF CARE TEST ORDERABLE S Performing Organization Address City/State/[place] [address] POCT Glucose (09/28/2021 4:58 AM EDT) athologist Signature POC Glucose 150 65 - 199 EVELINE AUDREY mg/dL [facility] Comment: Supplemental ranges: <140 mg/dL before meals <180 mg/dL all other times of the day Specimen Anatomical Collection Method Collection Time Receive d Time (Source) Location / / Volume Laterality Blood 09/28/2021 4:58 AM 2 4:58 EDT AM EDT Abdon Arreguin MD POINT OF CARE TEST ORDERABLE S Performing Organization Address City/State/[place] [address] POCT Glucose (09/28/2021 3:58 AM EDT) athologist Signature POC Glucose 153 65 - 199 EVELINE AUDREY mg/dL [facility] Comment: Supplemental ranges: <140 mg/dL before meals <180 mg/dL all other times of the day Specimen Anatomical Collection Method Collection Time Receive d Time (Source) Location / / Volume Laterality Blood 09/28/2021 3:58 AM 2 3:58 EDT AM EDT Abdon Arreguin MD POINT OF CARE TEST ORDERABLE S Performing Organization Address City/State/[place] [address] [facility] LAB[address]ORY Drive (ABNORMAL) Differential, Automated (09/28/2021 2:15 AM EDT) [facility] Method Time Signature Neutrophils % 87.6 % [facility] Neutr Abs (ANC) 11.58 (H) 1.70 - [facility] 6.10 [facility] x10(3)/[facility] L LABORATORY Lymphocytes % 5.2 % [facility] Lymphocytes Abs 0.7 (L) 0.9 - 3.2 [facility] x10(3)/[facility] LABORATORY Monocytes % 6.7 % [facility] Monocyte Abs 0.9 0.3 - 0.9 [facility] x10(3)/[facility] LABORATORY Eosinophils % 0.0 % [facility] Eosinophils Abs 0.0 0.0 - 0.4 [facility] x10(3)/[facility] LABORATORY Basophils % 0.2 % [facility] Basophils Abs 0.0 0.0 - 0.1 [facility] x10(3)/[facility] LABORATORY Immature Gran % 0.30 % [facility] Comment: Immature granulocytes(IG's)percentage an d absolute count will include metamyelocytes, myelocytes, and promyelo cytes. Blood smears from CBCs yielding IG's will be scanned manually for concor dance. If this scan disagrees with the automated IG or if promyelocytes are not ed, a manual differential will be performed. Anna Gran Abs 0.04 0.00 - 0.04 x10(3)/[facility] LABORATORY Specimen Anatomical Collection Method Collection Time Receive d Time (Source) Location / / Volume Laterality Blood 09/28/2021 2:15 AM 2:27 EDT AM EDT Resulting Agency Comment Spec In Lab Davie CONTRERAS HEMATOLOGY ORDERABLES Performing Organization Address City/State/[place] [address] (ABNORMAL) Hemogram (09/28/2021 2:15 AM EDT) Analysis Performed At Patho logist Time Signature WBC 13.2 (H) 4.0 - 9.5 [facility] x[facility](3[facility] LABORATORY RBC 3.73 (L) 4.58 - EVELINE AUDREY 5.54 [facility] x10(6)/[facility] LABORATORY Hemoglobin 10.9 (L) 13.7 - [facility] 16.[facility] g/dL [facility] Hematocrit 33.1 (L) 40.5 - [facility] 48.5 % [facility] MCV 88.7 82.9 - [facility] 93.1 [facility] LABORATORY MCH 29.2 27.5 - [facility] 32.1 pg [facility] MCHC 32.9 32.0 - [facility] 35.7 g/dL [facility] Platelets 145 145 - 357 [facility] x10(3)/[facility] LABORATORY RDWSD 46.3 (H) 36.0 - [facility] 45.0 [facility] LABORATORY RDWCV 14.3 (H) 11.4 - [facility] AUDREY 13.8 % [facility]ATORY MPV 10.3 7.6 - 12.9 [facility] LABORATORY nRBC % Auto 0.0 % [facility] nRBC Abs Auto 0.000 0.000 - [facility] 0.000 [facility] x10(3)/[facility] LABORATORY Specimen Anatomical Collection Method Collection Time Receive d Time (Source) Location / / Volume Laterality Blood 09/28/2021 2:15 AM 2 2:27 EDT AM EDT Resulting Agency Comment Spec In Lab Davie CONTRERAS HEMATOLOGY ORDERABLES Performing Organization Address City/State/[place] [address] (ABNORMAL) Basic Metabolic Panel (non-fasting) (09/28/2021 2:15 AM EDT) P athologist Signature Glucose Lvl 193 65 - 199 [facility] mg/dL [facility] Comment: Diabetes: >=200 mg/dL plus symp toms BUN 13 10 - 20 mg/dL [facility] Creatinine 0.73 (L) 0.80 - 1.50 mg/dL [facility]ORY Sodium 139 135 - 145 mmol/L [facility] Potassium 4.3 3.5 - 5.0 mmol/L [facility] Comment: Please note: ??Patients with WBC >100,00 0 may have falsely elevated Potassium levels. ??For accurate Potassium quantif ication in these patients send serum separator tube (gold top) for subsequent determinations. ??Contact the Clinical Chemistry Laboratory if there are any qu estions. Chloride 108 (H) 98 - 107 mmol/L [facility] CO2 21 (L) 22 - 31 mmol/L [facility] Anion Gap 10 5 - 15 mmol/L [facility] Calcium 7.5 (L) 8.5 - 10.5 mg/dL [facility] Estimated GFR 95 >=60 mL/min/1.73 m?? [facility] Comment: This patient's estimated [...] Organization Address City/State/[place] [address] (ABNORMAL) Troponin (09/28/2021 2:15 AM EDT) athologist Signature Troponin-T 0.31 (H) 0.00 - EVELINE VENTURA 0.00 ng/mL [facility] Comment: The 99th percentile for Troponin T is le ss than 0.01 ng/mL, any detectable cTnT concentration using this assay should be considered elevated. According to the third universal definit ion of myocardial infarction the following criteria with a clinical prese ntation consistent with acute myocardial ischemia meets the diagnosis for a myocardial infarction ([place]). Detection of a rise and/or fall of [...] additional sample may be indicated. Reference: Third [place] Definition of Myocardial Infarction. Journal of the [place] [employer] 2012;60:1581-98 Specimen Anatomical Collection Method Collection Time Receive d Time (Source) Location / / Volume Laterality Blood 09/28/2021 2:15 AM 2 2:27 EDT AM EDT Resulting Agency Comment Spec In Lab Abdon Arreguin MD CHEMISTRY ORDERABLES Performing Organization Address City/State/[place] [address] POCT Glucose (09/28/2021 2:12 AM EDT) athologist Signature POC Glucose 183 65 - 199 EVELINE AUDREY mg/dL [facility] Comment: Supplemental ranges: <140 mg/dL before meals <180 mg/dL all other times of the day Specimen Anatomical Collection Method Collection Time Receive d Time (Source) Location / / Volume Laterality Blood 09/28/2021 2:12 AM 2 2:12 EDT AM EDT Abdon Arreguin MD POINT OF CARE TEST ORDERABLE S Performing Organization Address City/[facility]/ZIP Code Phon e Number [address] POCT Glucose (09/28/2021 12:13 AM EDT) athologist Signature POC Glucose 182 65 - 199 EVELINE AUDREY mg/dL [facility] Comment: Supplemental ranges: <140 mg/dL before meals <180 mg/dL all other times of the day Specimen Anatomical Collection Method Collection Time Receive d Time (Source) Location / / Volume Laterality Blood 09/28/2021 12:13 09/28/2021 AM EDT 12:13 AM EDT Abdon Arreguin MD POINT OF CARE TEST ORDERABLE S Performing Organization Address [facility]/[place] [address] POCT Glucose (09/27/2021 10:07 PM EDT) athologist Signature POC Glucose 184 65 - 199 EVELINE AUDREY mg/dL [facility] Comment: Supplemental ranges: <140 mg/dL before meals <180 mg/dL all other times of the day Specimen Anatomical Collection Method Collection Time Receive d Time (Source) Location / / Volume Laterality Blood 09/27/2021 10:07 09/27/2021 PM EDT 10:07 PM EDT Abdon Arreguin MD POINT OF CARE TEST ORDERABLE S Performing Organization Address City/[facility]/[place] [address] (ABNORMAL) Hemoglobin (09/27/2021 9:30 PM EDT) athologist Signature Hemoglobin 11.2 (L) 13.7 - EVELINE AUDREY 16.5 g/dL [facility] Specimen Anatomical Collection Method Collection Time Receive d Time (Source) Location / / Volume Laterality Blood 09/27/2021 9:30 PM 9:34 EDT PM EDT Resulting Agency Comment Spec In Lab Abdon Arreguin MD HEMATOLOGY ORDERABLES Performing Organization Address City/State/[place] [address] Potassium (09/27/2021 9:30 PM EDT) P athologist Signature Potassium 4.2 3.5 - 5.0 [facility] mmol/L [facility] Comment: Please note: ??Patients [...] Arreguin MD CHEMISTRY ORDERABLES Performing Organization Address City/[facility]/[place] [address] (ABNORMAL) BLOOD GAS 2 ARTERIAL (09/27/2021 7:45 PM EDT) Analysis Performed At Patho logist Time Signature pH Art 7.31 (L) 7.35 - [facility] 7.45 [facility]ORY pCO2 Art 37 35 - 45 [facility] mmHg [facility] pO2 Art 117 (H) 85 - 104 [facility] LABORATORY HCO3 Art 18.3 (L) 20.0 - [facility] 26.0 [facility] mmol/[facility] LABORATORY BE Art -7.9 (L) -3.0 - 3.0 [facility] mmol/L [facility] Hgb Blood Gas 12.7 (L) 13.7 - [facility] 16.5 g/dL [facility] O2HB Art 96.8 94.0 - [facility] 97.0 % [facility] COHB Art 0.4 % [facility] Comment: Nonsmokers: 0.5-1.5% COHB Smokers: Variable, but usually less than 10% Toxic: 20-30% COHB Lethal: Greater than 60% COHB METHB Art 0.7 <=1.5 % [facility] Na Whole Blood 140 135 - 145 mmol/L [facility] K Whole Blood 3.9 3.5 - 5.0 mmol/L [facility] Comment: Please note: Patients with WBC >100,000 may have falsely elevated Potassium levels. Contact the Clinical Chemistry L aboratory if there are any questions. ICa Whole Blood 1.10 (L) 1.15 - 1.33 mmol/L [facility] Comment: Note: ??Total bilirubin higher than 20 m g/dL may lead to falsely low ionized calcium. CL Whole Blood 108 (H) 98 - 107 mmol/L [facility] LABORATORY Gluc Whole Bld 173 65 - 199 mg/dL [facility] Comment: Diabetes: >=200 mg/dL plus symp toms. Lactate WB 1.7 0.5 - 2.2 mmol/L [facility] FIO2 Art 40 % [facility] PF Ratio Art 292 [facility] LABORATORY Specimen Anatomical Collection Method Collection Time Receive d Time (Source) Location / / Volume Laterality Blood 09/27/2021 7:45 PM 2 7:45 EDT PM EDT Abdon Arreguin MD CHEMISTRY ORDERABLES Performing Organization Address City/State/ZIP Code Phon e Number [address] POCT Glucose (09/27/2021 7:19 PM EDT) P athologist Signature POC Glucose 149 65 - 199 [facility] mg/dL [facility] Comment: Supplemental ranges: <140 mg/dL before meals <180 mg/dL all other times of the day Specimen Anatomical Collection Method Collection Time Receive d Time (Source) Location / / Volume Laterality Blood 09/27/2021 7:19 PM 2 7:19 EDT PM EDT Abdon Arreguin MD POINT OF CARE TEST ORDERABLE S Performing Organization Address City/State/[place] [address] XR Chest One View [...] who have questions please contact the health long term care phlebotomist that requested your imaging first. ? Narrative [...] ho have questions please contact the health long term care phlebotomist that requested your imaging first. Abdon Arreguin MD IMG DX ORDERABLES (ABNORMAL) BLOOD GAS 2 ARTERIAL (09/27/2021 5:58 PM EDT) athologist Signature pH Art 7.29 7.35 - [facility] (Critical) 7.45 [facility] Comment: Noted by gyroscopic instrument tester. pCO2 Art 44 35 - 45 mmHg [facility] pO2 Art 462 (H) 85 - 104 mmHg [facility] HCO3 Art 20.7 20.0 - 26.0 mmol/L [facility] BE Art -5.9 (L) -3.0 - 3.0 mmol/L [facility] Hgb Blood Gas 12.9 (L) 13.7 - 16.5 g/dL [facility] O2HB Art 98.5 (H) 94.0 - 97.0 % [facility] COHB Art 0.4 % [facility] Comment: Nonsmokers: 0.5-1.5% COHB Smokers: Variable, but usually less than 10% Toxic: 20-30% COHB Lethal: Greater than 60% COHB METHB Art 0.7 <=1.5 % [facility] Na Whole Blood 138 135 - 145 mmol/L [facility] K Whole Blood 3.9 3.5 - 5.0 mmol/L [facility] Comment: Please note: Patients with WBC >100,000 may have falsely elevated Potassium levels. Contact the Clinical Chemistry L aboratory if there are any questions. ICa Whole Blood 1.15 1.15 - 1.33 mmol/L [facility] Comment: Note: ??Total bilirubin higher than 20 m g/dL may lead to falsely low ionized calcium. CL Whole Blood 105 98 - 107 mmol/L [facility] Gluc Whole Bld 166 65 - 199 mg/dL [facility] Comment: Diabetes: >=200 mg/dL plus symp toms. Lactate WB 1.6 0.5 - 2.2 mmol/L [facility] FIO2 Art 100 % [facility] PF Ratio Art 462 [facility] Specimen Anatomical Collection Method Collection Time Receive d Time (Source) Location / / Volume Laterality Blood 09/27/2021 5:58 PM 2 5:58 EDT PM EDT Abdon Arreguin MD CHEMISTRY ORDERABLES Performing Organization Address City/State/[place] [address] EKG 12 Lead (09/27/2021 5:47 PM EDT) Component Value Ref Range Test Analysis Performed Pathologis t Method Time At Signature Ventricular rate 80 BPM MUSE SYSTEM Atrial Rate 80 BPM MUSE SYSTEM P-R Interval 298 ms MUSE SYSTEM QRS Duration 148 ms MUSE SYSTEM Q-T Interval 482 ms MUSE SYSTEM QTC Calculated 555 ms MUSE SYSTEM (Bezet) Calculated P Henderson 102 degrees MUSE SYSTEM Calculated R Henderson 102 degrees MUSE SYSTEM Calculated T Henderson -46 degrees MUSE SYSTEM INTERPRETATION Suspect arm lead reversal, interpreta tion assumes no reversal MUSE SYSTEM Sinus rhythm with 1st degree A-V block Right bundle branch block Marked T-wave abnormality, consider inferolateral ischemia Abnormal ECG When compared with ECG of 24-SEP-2021 13:08, Sinus rhythm has replaced Electronic ventricular pacemaker Confirmed by MD GONZALEZ SALVATORE () on 09/30/2021 1:18:33 PM Specimen Anatomical Collection Method Collection Time Receive d Time (Source) Location / / Volume Laterality 09/27/2021 5:47 PM 2 1:18 EDT PM EDT Abdon Arreguin MD ECG ORDERABLES Performing Organization Address City/[facility]/ZIP Code Phon e Number MUSE SYSTEM (ABNORMAL) [...] Castanon MD HEMATOLOGY ORDERABLES Performing Organization Address [facility]/ZIP Code Phon e Number [address] Fibrinogen (09/27/2021 4:37 PM EDT) athologist Signature Fibrinogen 247 200 - 393 [facility] mg/dL [facility] Comment: OR Result called [...] Castanon MD HEMATOLOGY ORDERABLES Performing Organization Address City/[facility]/ZIP [facility] Phon e Number [address] APTT (09/27/2021 4:37 PM EDT) athologist Signature PTT 33 25 - 37 sec [facility] Comment: OR Result [...] Castanon MD HEMATOLOGY ORDERABLES Performing Organization Address City/[facility] Code Phon e Number [address] (ABNORMAL) Prothrombin Time (09/27/2021 4:37 PM EDT) athologist Signature PT 17.8 (H) 9.4 - 12.5 [facility] LABORATORY Comment: OR Result called by ?? PARSAD OR Result s read back by: ? Lyndsaybarbara Richard at 2021-09-27 16:57:25 INR 1.6 [facility] Comment: OR Result called by ?? PARSAD OR Result s read back by: ? Lyndsay Jose Manuel at 2021-09-27 16:57:25 An INR <2.0 indicates [...] Castanon MD HEMATOLOGY ORDERABLES Performing Organization Address City/[facility]/ZIP Code Phon e Number [address] (ABNORMAL) Hemogram (09/27/2021 4:37 PM EDT) P athologist Signature WBC 17.4 (H) 4.0 - 9.5 [facility] x10(3)/[facility] LABORATORY RBC 3.34 (L) 4.58 - [facility] 5.54 [facility] x10(6)/[facility] LABORATORY Hemoglobin 9.6 (L) 13.7 - [facility] 16.5 g/dL [facility] Hematocrit 29.5 (L) 40.5 - [facility] 48.5 % [facility] Comment: This result has been called to NAYLA BARR by Heladio Ordonez on 09 27 2021 at 1648, and has been read back. MCV 88.3 82.9 - 93.1 [facility] LABORATORY MCH 28.7 27.5 - 32.1 pg [facility] MCHC 32.5 32.0 - 35.7 g/dL [facility] LABORATORY Platelets 152 145 - 357 x10(3)/[facility] LABORATORY RDWSD 44.7 36.0 - 45.0 [facility] LABORATORY RDWCV 13.9 (H) 11.4 - 13.8 % [facility] LABORATORY MPV 10.3 7.6 - 12.9 [facility] LABORATORY nRBC % Auto 0.0 % [facility] LABORATORY nRBC Abs Auto 0.000 0.000 - 0.000 x10(3)/[facility] LABORATORY Specimen Anatomical Collection Method Collection Time Receive d Time (Source) Location / / Volume Laterality Blood 09/27/2021 4:37 PM 4:43 EDT PM EDT Resulting Agency Comment Spec In Lab Henny Castanon MD HEMATOLOGY ORDERABLES Performing Organization Address City/State/ZIP Code Phon e Number [place] [phone] (ABNORMAL) BLOOD GAS 2 ARTERIAL (09/27/2021 4:33 PM EDT) Analysis Performed At Patho logist Time Signature pH Art 7.36 7.35 - [facility] 7.45 [facility] pCO2 Art 41 35 - 45 [facility] LABORATORY pO2 Art 165 (H) 85 - 104 [facility] LABORATORY HCO3 Art 22.6 20.0 - [facility] 26.0 [facility] mmol/L [facility]ORAT[facility] BE Art -2.9 -3.0 - 3.0 [facility] mmol/L [facility] Hgb Blood Gas 10.3 (L) 13.7 - [facility] 16.5 g/dL [facility] O2HB Art 98.0 (H) 94.0 - [facility] 97.0 % [facility] COHB Art 0.3 % [facility] Comment: Nonsmokers: 0.5-1.5% COHB Smokers: Variable, but usually less than 10% Toxic: 20-30% COHB Lethal: Greater than 60% COHB METHB Art 0.3 <=1.5 % [facility] Na Whole Blood 134 (L) 135 - 145 mmol/L [facility] K Whole Blood 3.8 3.5 - 5.0 mmol/L [facility] Comment: Please note: Patients with WBC >100,000 may have falsely elevated Potassium levels. Contact the Clinical Chemistry L aboratory if there are any questions. ICa Whole Blood 1.12 (L) 1.15 - 1.33 mmol/L [facility] Comment: Note: ??Total bilirubin higher than 20 m g/dL may lead to falsely low ionized calcium. CL Whole Blood 108 (H) 98 - 107 mmol/L [facility] Gluc Whole Bld 155 65 - 199 mg/dL [facility] Comment: Diabetes: >=200 mg/dL plus symp toms. Lactate WB 1.4 0.5 - 2.2 mmol/L [facility] Specimen Anatomical Collection Method Collection Time Receive d Time (Source) Location / / Volume Laterality Blood 09/27/2021 4:33 PM 2 4:33 EDT PM EDT Abdon Arreguin MD CHEMISTRY ORDERABLES Performing Organization Address City/State/[place] [address] [facility] [address] Prepare cryoprecipitate (09/27/2021 4:20 PM EDT) P athologist Signature Dispensed? Yes [facility] Specimen Anatomical Collection Method Collection Time Receive d Time (Source) Location / / Volume Laterality Blood 09/27/2021 4:20 PM 4:19 EDT PM EDT Abdon Arreguin MD BLOOD BANK ORDERABLES Performing Organization Address City/[facility]/ZIP Code Phon e Number [place] [phone] [facility] [address] Drive (ABNORMAL) BLOOD GAS 2 ARTERIAL (09/27/2021 3:48 PM EDT) Analysis Performed At Patho logist Time Signature pH Art 7.39 7.35 - [facility] 7.45 [facility] pCO2 Art 38 35 - 45 [facility] LABORATORY pO2 Art 482 (H) 85 - 104 [facility] LABORATORY HCO3 Art 22.6 20.0 - [facility] 26.0 [facility] mmol/L [facility] BE Art -2.3 -3.0 - 3.0 [facility] mmol/L [facility] Hgb Blood Gas 10.0 (L) 13.7 - [facility] 16.5 g/dL [facility] O2HB Art 98.9 (H) 94.0 - [facility] 97.0 % [facility] COHB Art 0.3 % [facility] Comment: Nonsmokers: 0.5-1.5% COHB Smokers: Variable, but usually less than 10% Toxic: 20-30% COHB Lethal: Greater than 60% COHB METHB Art 0.3 <=1.5 % [facility] Na Whole Blood 133 (L) 135 - 145 mmol/L [facility] K Whole Blood 4.2 3.5 - 5.0 mmol/L [facility] Comment: Please note: Patients with WBC >100,000 may have falsely elevated Potassium levels. Contact the Clinical Chemistry L aboratory if there are any questions. ICa Whole Blood 0.99 (L) 1.15 - 1.33 mmol/L [facility] Comment: Note: ??Total bilirubin higher than 20 m g/dL may lead to falsely low ionized calcium. CL Whole Blood 105 98 - 107 mmol/L [facility] Gluc Whole Bld 144 65 - 199 mg/dL [facility] Comment: Diabetes: >=200 mg/dL plus symp toms. Lactate WB 1.4 0.5 - 2.2 mmol/L [facility] Specimen Anatomical Collection Method Collection Time Receive d Time (Source) Location / / Volume Laterality Blood 09/27/2021 3:48 PM 3:48 EDT PM EDT Abdon Arreguin MD CHEMISTRY ORDERABLES Performing Organization Address City/State/[place] [address] Platelet count (09/27/2021 3:40 PM EDT) athologist Signature Platelets 164 145 - 357 [facility] x10(3)/[facility] LABORATORY Plat Immature 3.8 0.0 - 7.4 [facility] % % [facility] Comment: Limitation of the Immature Platelet Frac tion (IPF)-May be less reliable when the platelet count is less than 44m592/u L due to statistical imprecision. The IPF [...] in a decreased state of production. References: [employer] The Clinical Value of the Immature Platelet Fraction (IPF) in Cell Recovery Document Number [id number] 07/2010 [employer] The Role of the Imm ature Platelet Fraction (IPF) in the Differential Diagnosis of Thrombocytopen ia, Document [id number] V05 P006/22 Specimen Anatomical Collection Method Collection Time Receive d Time (Source) Location / / Volume Laterality Blood 09/27/2021 3:40 PM 2 3:55 EDT PM EDT Resulting Agency Comment Spec In Lab Abdon Arreguin MD HEMATOLOGY ORDERABLES Performing Organization Address City/[facility]/ZIP Code Phon e Number [address] (ABNORMAL) Hemoglobin (09/27/2021 3:40 PM EDT) athologist Signature Hemoglobin 9.3 (L) 13.7 - 16.5 [facility] g/dL [facility] Comment: This result has [...] Arreguin MD HEMATOLOGY ORDERABLES Performing Organization Address City/[facility] [place] [address] Fibrinogen (09/27/2021 3:40 PM EDT) athologist Signature Fibrinogen 235 200 - 393 [facility] mg/dL [facility] Comment: OR Result called [...] Organization Address City/State/[place] [address] (ABNORMAL) Hematocrit (09/27/2021 3:40 PM EDT) P athologist Signature Hematocrit 27.7 (L) 40.5 - [facility] 48.5 % [facility] Comment: This result has been called to LYNDSAY HARRIS by Ambrosio Pena on 09 27 2021 at 1602, and has been read back. Specimen Anatomical Collection Method Collection Time Receive d Time (Source) Location / / Volume Laterality Blood 09/27/2021 3:40 PM 3:55 EDT PM EDT Resulting Agency Comment Spec In Lab Abdon Arreguin MD HEMATOLOGY ORDERABLES Performing Organization Address City/[facility]/[place] [address] (ABNORMAL) BLOOD GAS 2 ARTERIAL (09/27/2021 3:16 PM EDT) Analysis Performed At Patho logist Time Signature pH Art 7.41 7.35 - [facility] 7.45 [facility] pCO2 Art 36 35 - 45 [facility] mmHg [facility] pO2 Art 525 (H) 85 - 104 [facility] LABORATORY HCO3 Art 22.5 20.0 - [facility] 26.0 [facility] mmol/L [facility] BE Art -2.1 -3.0 - 3.0 [facility] mmol/L [facility] Hgb Blood Gas 10.1 (L) 13.7 - [facility] 16.5 g/dL [facility] O2HB Art 98.8 (H) 94.0 - [facility] 97.0 % [facility] COHB Art 0.3 % [facility] Comment: Nonsmokers: 0.5-1.5% COHB Smokers: Variable, but usually less than 10% Toxic: 20-30% COHB Lethal: Greater than 60% COHB METHB Art 0.3 <=1.5 % [facility] Na Whole Blood 132 (L) 135 - 145 mmol/L [facility] K Whole Blood 4.0 3.5 - 5.0 mmol/L [facility] Comment: Please note: Patients with WBC >100,000 may have falsely elevated Potassium levels. Contact the Clinical Chemistry L aboratory if there are any questions. ICa Whole Blood 1.00 (L) 1.15 - 1.33 mmol/L [facility] Comment: Note: ??Total bilirubin higher than 20 m g/dL may lead to falsely low ionized calcium. CL Whole Blood 105 98 - 107 mmol/L [facility] Gluc Whole Bld 141 65 - 199 mg/dL [facility] Comment: Diabetes: >=200 mg/dL plus symp toms. Lactate WB 1.4 0.5 - 2.2 mmol/L [facility] Specimen Anatomical Collection Method Collection Time Receive d Time (Source) Location / / Volume Laterality Blood 09/27/2021 3:16 PM 2 3:16 EDT PM EDT Abdon Arreguin MD CHEMISTRY ORDERABLES Performing Organization Address City/State/[place] [address] (ABNORMAL) BLOOD GAS 2 ARTERIAL (09/27/2021 2:46 PM EDT) Analysis Performed At Patho logist Time Signature pH Art 7.36 7.35 - [facility] 7.45 [facility] pCO2 Art 44 35 - 45 [facility] mmHg [facility] pO2 Art 554 (H) 85 - 104 [facility] LABORATORY HCO3 Art 24.6 20.0 - [facility] 26.0 [facility] mmol/L [facility] BE Art -0.8 -3.0 - 3.0 [facility] mmol/L [facility] Hgb Blood Gas 9.6 (L) 13.7 - [facility] 16.5 g/dL [facility] O2HB Art 99.0 (H) 94.0 - [facility] 97.0 % [facility] COHB Art 0.3 % [facility] Comment: Nonsmokers: 0.5-1.5% COHB Smokers: Variable, but usually less than 10% Toxic: 20-30% COHB Lethal: Greater than 60% COHB METHB Art 0.3 <=1.5 % [facility] Na Whole Blood 133 (L) 135 - 145 mmol/L [facility] K Whole Blood 4.2 3.5 - 5.0 mmol/L [facility] Comment: Please note: Patients with WBC >100,000 may have falsely elevated Potassium levels. Contact the Clinical Chemistry L aboratory if there are any questions. ICa Whole Blood 0.97 (L) 1.15 - 1.33 mmol/L [facility] Comment: Note: ??Total bilirubin higher than 20 m g/dL may lead to falsely low ionized calcium. CL Whole Blood 105 98 - 107 mmol/L [facility] Gluc Whole Bld 128 65 - 199 mg/dL [facility] Comment: Diabetes: >=200 mg/dL plus symp toms. Lactate WB 1.1 0.5 - 2.2 mmol/L [facility] Specimen Anatomical Collection Method Collection Time Receive d Time (Source) Location / / Volume Laterality Blood 09/27/2021 2:46 PM 2 2:46 EDT PM EDT Abdon Arreguin MD CHEMISTRY ORDERABLES Performing Organization Address City/State/[place] [address] BLOOD GAS 2 ARTERIAL (09/27/2021 1:47 PM EDT) athologist Signature pH Art 7.37 7.35 - [facility] 7.45 [facility] pCO2 Art 44 35 - 45 [facility] mmHg [facility] pO2 Art 102 85 - 104 [facility] mmHg [facility] HCO3 Art 25.0 20.0 - [facility] 26.0 [facility] mmol/L [facility] BE Art -0.3 -3.0 - 3.0 [facility] mmol/L [facility] Hgb Blood Gas 13.7 13.7 - [facility] 16.5 g/dL [facility] O2HB Art 96.5 94.0 - [facility] 97.0 % [facility] COHB Art 0.7 % [facility] Comment: Nonsmokers: 0.5-1.5% COHB Smokers: Variable, but usually less than 10% Toxic: 20-30% COHB Lethal: Greater than 60% COHB METHB Art 0.3 <=1.5 % [facility] Na Whole Blood 139 135 - 145 mmol/L [facility] K Whole Blood 3.6 3.5 - 5.0 mmol/L [facility] Comment: Please note: Patients with WBC >100,000 may have falsely elevated Potassium levels. Contact the Clinical Chemistry L aboratory if there are any questions. ICa Whole Blood 1.15 1.15 - 1.33 mmol/L [facility] Comment: Note: ??Total bilirubin higher than 20 m g/dL may lead to falsely low ionized calcium. CL Whole Blood 105 98 - 107 mmol/L [facility] Gluc Whole Bld 116 65 - 199 mg/dL [facility] Comment: Diabetes: >=200 mg/dL plus symp toms. Lactate WB 1.1 0.5 - 2.2 mmol/L [facility] Specimen Anatomical Collection Method Collection Time Receive d Time (Source) Location / / Volume Laterality Blood 09/27/2021 1:47 PM 2 1:47 EDT PM EDT Abdon Arreguin MD CHEMISTRY ORDERABLES Performing Organization Address City/State/[place] [address] Transesophageal Echo/OR (09/27/2021 12:56 [...] Age: 76 Years Gender: Male Ordering Physician: [id number]^KALLIE^ABDON^P^^^^^EPIC^^^^PROV ID Referring Physician: [id number]^UNKNOWN^^^^^^ ^EPIC^^^^PROVID ? Conclusions Intraoperative GIUSEPPE performed to [...] Date: 09/09, 12: 56 PM Patient Location: [facility] : 1945 (MM/DD/YYYY) Age: 76 Years Gender: Male Ordering Physician: [id number]^KALLIE^ABDON^P^^^^^EPIC^^^^PROV ID Referring Physician: [id number]^UNKNOWN^^^^^^ ^EPIC^^^^PROVID Conclusions Intraoperative GIUSEPPE performed to confirm [...] 12:05 PM EDT) athologist Signature Dispensed? Yes [facility] Specimen Anatomical Collection Method Collection Time Receive d Time (Source) Location / / Volume Laterality Blood 09/27/2021 12:05 09/27/2021 PM EDT 12:02 PM EDT Abdon Arreguin MD BLOOD BANK ORDERABLES Performing Organization Address City/State/ZIP Code Phon e Number [address] POCT Glucose (09/27/2021 11:37 AM EDT) athologist Signature POC Glucose 124 65 - 199 [facility] mg/dL [facility] Comment: Supplemental ranges: <140 mg/dL before meals <180 mg/dL all other times of the day Specimen Anatomical Collection Method Collection Time Receive d Time (Source) Location / / Volume Laterality Blood 09/27/2021 11:37 09/27/2021 AM EDT 11:37 AM EDT Abdon Arreguin MD POINT OF CARE TEST ORDERABLE S Performing Organization Address City/State/[place] [address] SCAN DOC: LAB (09/27/2021 12:00 AM EDT) Narrative 09/27/2021 12:00 AM EDT This result has an attachment that is no t available. Ordered by an unspecified provider. 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, unspecified vessel [...] PRN, Starting on Thu09/27/21 at 1606, Until Thu09/28/21 at 0433, Intra-Operative (Intra-Procedure), Routine cardioplegic solution [...] on Thu09/27/21 at 1258, Until Thu09/27/21 at 191, Intra-Operative (Intra-Procedure) New Bag 09/27/2021 12:58 PM [...] Tatiana gustafson, TY)1128 (Given - Provider: Marilou Graff, TY)1754 (Given - Provider: Marilou Graff, TY)2332 (Given - Provider: Tatiana Lopez RN) 0516 (Given - Provider: Tatiana gustafson, TY)1128 (Given - Provider: Esthela Vu RN) 1,000 [...] Lopez RN) 0807 (Given - Provider: Esthela Vu, TY)141 (Given - Provider: Esthela Vu RN) 200 [...] Marilou Graff RN)1129 (Given - Provider: Marilou Graff, TY)1639 (Given - Provider: Marilou Graff RN)2041 (Given - Provider: Tatiana Lopez RN) 0730 [...] Hernandez, TY)1400 (Not Given - Provider: Fransisca Hernandez, TY - Reason: Patient/family refused) 0105 (Given - Provider: Tatiana gustafson RN)0907 (Given - Provider: Marilou Graff, TY)1405 (Given - Provider: Marilou Graff RN)2040 (Given - Provider: Tatiana Lopez RN) 0200 (Not Given - Provider: Tatiana Lopez RN - Reason: Patient/family refused)0807 (Given - Provider: Esthela Vu, TY)1411 (Given - Provider: Esthlea Vu, RN) 3 mL, Nebulization, EVERY 6 HOURS, First dose on 09/28/21 at 1100, Until Discontinued, Routine 1928 (Given - Provider: Tatiana Lopez RN) levothyroxine (Synthroid) tablet 125 mcg 0508 (Given - Provider: Tatiana Lopez, TY) 0527 (Given - Provider: Tatiana Lopez, RN) 0516 (Given - Provider: Tatiana Lopez [...] Provider: Esthela george RN)1610 (Given - Provider: Estheal Vu RN) 1,000 mg, Oral, 2 TIMES DAILY WITH MEALS , First dose on Thu10/01/21 at 1700, Until Discontinued, Routine metoprolol tartrate (Lopressor) tablet 50 mg 0856 (Giv en - Provider: Fransisca Hernandez RN)1535 (Given - Provider: Fransisca Hernandez RN)2102 (Given - Provider: Tatiana Lopez RN) 0527 (Given - Provider: Tatiana gustafson RN)1405 [...] Lopez RN) 0807 (Given - Provider: Esthela Vu, TY) 0.4 mg, Oral, 2 TIMES DAILY, First [...] (0-100 mL/hr), Intraven ous, CONTINUOUS, Starting on Thu09/30/21 at 0945, Until Thu10/03/21 at 1139, Begin infusion at 1,150 units [...] Starting on Thu09/30/21 at 0815, Until [place] 8/25/22 at 1914, Low blood sugar, For BG [...] St arting on Thu09/27/21 at 1743, Until [place] 10/03/21 at 1914, Nausea Linked Groups Order Group [...] episode. & nbsp; For persistent hypoglycemia, con bartender helper longer-acting treatment for the duration of the [...]
Routine documented in this encounter Care Teams Environmental Sciences Professor Relationship Specialty Start Date End Date Jesusita Law MD PCP - General Family Medicine 09/03/[address] [place] [id number] documented as of this encounter
--- OUTSIDE RECORDS SUMMARY | 2021-11-22 10:40 | XMS_ITS | Encounter Summary ---
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, unspecified vessel or lesion type cad Abdon Dawson MD [facility] Procedures PRO CABG, ARTERIAL, SINGLE PRO CABG, ARTERY-VEIN, THREE PRO ENDOSCOPY W/VIDEO-ASST VEIN HARVEST, CABG @CABG, USING ARTERIAL GRAFT;SINGLE ARTERIAL GRAFT (WRVU 33.75) @CABG; 3 VENOUS GRAFTS & ARTERIAL GRAFT (WRVU 10.49) [facility] ENDOSCOPIC HARVEST VEIN(S) FOR CABG (WRV U 0.31) [place] [address] Referral ID Status Reason Start Date Expiration Date Visits Requ ested Visits Authorized [id number] 1 1 Encounter Details Date Type Department Care Team Description 09/29/2021 Surgery Main Operating Room Rebecca Washburn rn, EMBOLECTOMY OR [facility] THROMBECTOMY, [facility] FEMOROPOPLITEAL, [facility] VASCULAR SURG CHEN [place] [address] LEG INCISION ([place] [address] 19.48) [phone] Social History Tobacco Use Types Packs/Day Years [...] Patient Age: 76 y.o. Birthdate: 1945 Language: Burkinan Race: White Ethnicity: Not nor Admit Date: 09/27/2021 Discharge Date: 10/03/2021 Attending Physician: Abdon Dawson MD Follow-up Recommendations for Providers: ??? Please continue routine management of cardiovascular risk factors including blood pressure, lipids, glucose, etc. ??? Please note any changes to medications. ??? Patient to follow up with PCP, Jesusita Law MD, in 1-2 weeks. ??? Patient to follow up with Cardiac Surgeon, Dr. Abdon Dawson, with a chest x-ray, EKG. ??? Patient to follow up with Vascular Surgery with TONEY study ??? Coumadin management to be resumed by PCP, Dr. Law. INR to be drawn tomorrow. Patient to stop lovenox once INR >1.8 (Please see below for details) Inpatient Provider Contact Information: [facility] Section of Cardiac Surgery [facility] [place] [address] FAX [phone] Discharge Diagnoses (Hospital Problems) Primary Diagnoses: CAD Secondary Diagnoses: LLE Ischemia s/p urgent left SFA embolectomy Chronic AF Active Hospital Problems Diagnosis ??? 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 CATH LABS ??? PRO CABG, ARTERIAL, SINGLE N/A 09/27/2021 @CABG, USING ARTERIAL GRAFT;SINGLE ARTERIAL GRAFT (WRVU 33.75) performed by Abdon Dawson MD at [facility] MAIN OR ??? PRO CABG, ARTERY-VEIN, THREE N/A 09/27/2021 @CABG; 3 VENOUS GRAFTS & ARTERIAL GRAFT (WRVU 10.49) performed by Abdon Dawson MD at [facility] MAIN OR ??? PRO EMBLC/THRMBC FEMORAL POPLITEAL AORTO-ILIAC ARTERY Left 09/29/2021 EMBOLECTOMY OR THROMBECTOMY, FEMOROPOPLITEAL, AORTOILIAC ARTERY BY LEG INCISION (WRVU 19.48) performed by Joselito Washburn MD at [facility] MAIN OR ??? PRO ENDOSCOPY W/VIDEO-ASST VEIN HARVEST, CABG N/A 09/27/2021 ENDOSCOPIC HARVEST VEIN(S) FOR CABG (WRVU 0.31) performed by Abdon Dawson MD at [facility] MAIN OR Prior To Admission Medications [...] (NASACORT or NASACORT OTC) 55 mcg Aerosol, Bryan 1 spray by Nasal route daily. 55 [...] s/p CABGx4 [address] was admitted to [facility] on 09/27/2021 via the Same Day Program. He was brought to the operating room where Dr. Abdon Dawson performed coronary artery bypass grafting. He tolerated [...] without incident. He voided normally after his Hatch was removed. LLE Ischemia s/p urgent left [...] not take or discontinue any prescription or spxz-kea-nqhttfd medications without asking your doctor or pharmacist [...] your chest incision. Your surgeon, Dr. Abdon Dawson and/or the Cardiac Surgery Physician Leasing Specialist Team may be reached at . Weight: [...] after your return appointment with Dr. Abdon Dawson. You may use a [place] Track or treadmill but avoid any pulling [...] friends, go to a movie, go to mormonism, etc. Heavy activities: No hunting, skiing, jogging, snow shoveling, snowmobiling, lawn mowing, swimming, golf or tennis until after your return appointment with the surgeon. Do not ride motorcycles, [employer]'s tractors or horses. Avoid the use of [...] should resume a low fat, low cholesterol, [place] Heart [employer] Diet. Driving: No driving until [...] while being managed by your PCP and/or Mate Ship. For future medication refills, please refer to your PCP and/or Mate Ship after your discharge from our service. Thank you REMOVE CHEST TUBE SUTURES ON OR AFTER 10/07/21 Home oxygen therapy: N/A - Use home CPAP device at night Follow up appointments: ??? You should follow up with your PCP, Jesusita Law MD, in 1-2 weeks. ??? You have an appointment with your Cardiac Surgeon, Dr. Abdon Dawson, with a chest x-ray, EKG before your appointment. ??? Patient to follow up with Vascular Surgery with TONEY study Cardiac Rehabilitation: Richy Street was seen today regarding participation in the outpatient Phase 2 Cardiac Rehabilitation at [facility]. The patient agrees to a referral to this program. The referral will be sent at discharge and the patient should be contacted by the Program within 1- 2 weeks from discharge. Future Appointments and Orders Future Appointments and Orders Future Appointments Provider Department Dept Phone 10/22/2021 1:45 PM [facility] DX ROOM 1 XRay at [facility] Arrive at: Estate Agent Area [phone] Please go to Estate Agent Area ([place] Location). 10/22/2021 2:30 PM Abdon Dawson MD Cardiac Surgery at [facility] Arrive at: Estate Agent Area [phone] 11/05/2021 9:45 AM [facility] DX ED ROOM 1 XRay at [facility] Arrive at: Estate Agent Area [phone] Please go to Estate Agent Area ([place] Location). 11/05/2021 10:40 AM Abdon Dawson MD Cardiac Surgery at [facility] Arrive at: Estate Agent Area [phone] Future Orders Complete By Expires TONEY, legs, multiple levels [VAS8 Custom] 10/08/2021 (Approximate) 11/01/2021 Process Instructions: There is no in-house vascular component lab tech available on weeknights (5pm-8am), weekends, or holidays. IF THIS IS A REQUEST FOR AN EMERGENT STUDY DURING THOSE HOURS, please have the senior provider responsible for the patient page the Vascular Surgery Fellow/Senior Resident environmental educator to discuss options. Scheduling Instructions: Questions: Indication for study/signs & symptoms: s/p LLE embolectomy Question to be answered: ?perfusion Preferred location?: [facility] Clinics Referral to Cardiac Rehab [[id number] Custom] As directed Process Instructions: If no progress note charted, please enter Clinical details in comments. Scheduling Instructions: Questions: My question or request is: CABG- cardiac rehab at [facility] Referral to Home Health [REF34 Custom] As directed Process Instructions: If no progress note charted, please enter Clinical details in comments. Scheduling Instructions: Comments: Please evaluate Richy Street for admission to Home Health. [address] [address] (home) Date of : 1945 DOCUMENTATION FOR VNA SERVICES (INCLUDING THOSE PATIENTS WITH MEDICARE COVERAGE REQUIRING HOME VNA SERVICES AND/OR HOSPICE SERVICES) PATIENT'S LOCATION: Richy [address] [address] (home) No relevant phone numbers on file. 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: Self In discussion with the attending physician, it is certified that this patient is under their care and that they, or a Nurse Practitioner, or Physician Leasing Specialist who is working directly with them, had [...] for servicesas follows: HOME HEALTH AGENCY: [facility] in [place], [place] and [phone] RN orders: Cardiopulmonary assessment, incisional assessment, assess [...] issues please call the Cardiology Office at [phone] FOR MEDICARE ONLY: In discussion with the [...] [facility] Section of Cardiac Surgery [facility] [place] [address] FAX [phone] Date: 10/03/2021 CC: Jesusita Law MD Unknown [...] not take or discontinue any prescription or xehb-kph-lxrnmio medications without asking your doctor or pharmacist [...] your chest incision. Your surgeon, Dr. Abdon Dawson and/or the Cardiac Surgery Physician Leasing Specialist Team may be reached at . Weight: [...] after your return appointment with Dr. Abdon Dawson. You may use a [place] Track or treadmill but avoid any pulling [...] friends, go to a movie, go to mormonism, etc. Heavy activities: No hunting, skiing, jogging, snow shoveling, snowmobiling, lawn mowing, swimming, golf or tennis until after your return appointment with the surgeon. Do not ride motorcycles, [employer]'s tractors or horses. Avoid the use of [...] should resume a low fat, low cholesterol, [place] Heart [employer] Diet. Driving: No driving until [...] while being managed by your PCP and/or Mate Ship. For future medication refills, please refer to your PCP and/or Mate Ship after your discharge from our service. Thank you REMOVE CHEST TUBE SUTURES ON OR AFTER 10/07/21 Home oxygen therapy: N/A - Use home CPAP device at night Follow up appointments: You should follow up with your PCP, Jesusita Law MD, in 1-2 weeks for you coumadin management You have an appointment with your Cardiac Surgeon, Dr. Abdon Dawson, in 2 weeks and 4 weeks with [...] OTC) 55 mcg Aerosol, spray into both Bryan nostrils once a day as needed for [...] in recliner post-d/c 3. Pt. to perform nuw-aw-jcvzc transfers with modified independence using a front [...] plan as stated. Time IN / OUT: 8227-9349 Total Minutes, Physical Therapy: 36 Fely Mejias PT , DPT Pager: [phone] Physical Therapy Inpatient Rehabilitation Department Leilani Be [...] ??? PACEMAKER IMPLANT ? ? PRG CATH [facility] LEFT HEART CATH & ARTS W/INJ & ANGIO IMG S&I N/A 09/10/2021 CORONARY ANGIOGRAPHY; W C,POSSIBLE PCI performed by Vinod Hassan MD at [facility] CATH LABS ??? PRO CABG, ARTERIAL, SINGLE N/A 09/27/2021 @CABG, USING ARTERIAL GRAFT;SINGLE ARTERIAL GRAFT (WRVU 33.75) performed by Abdon Dawson MD at [facility] MAIN OR ??? PRO CABG, ARTERY-VEIN, THREE N/A 09/27/2021 @CABG; 3 VENOUS GRAFTS & ARTERIAL GRAFT (WRVU 10.49) performed by Abdon Dawson MD at [facility] MAIN OR ??? PRO EMBLC/THRMBC FEMORAL POPLITEAL AORTO-ILIAC ARTERY Left 09/29/2021 EMBOLECTOMY OR THROMBECTOMY, FEMOROPOPLITEAL, AORTOILIAC ARTERY BY LEG INCISION (WRVU 19.48) performed by Joselito Washburn MD at [facility] MAIN OR ??? PRO ENDOSCOPY W/VIDEO-ASST VEIN HARVEST, CABG N/A 09/27/2021 ENDOSCOPIC HARVEST VEIN(S) FOR CABG (WRVU 0.31) performed by Abdon Dawson MD at 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 WNL/WFL ?? corrective lenses maritime officer Communication: WFL Range of motion, strength, coordination: [...] Occupational Therapy: 40 (1 low complexity eval (8078-7201)) OT Evaluation Code Rationale: ?? Diagnosis & [...] and measurable assessment of functional outcome. Pager: [phone] Arlene Simms OT 10/02/2021 Occupational Therapy Rehabilitation [...] ??? PACEMAKER IMPLANT ? ? PRG CATH [facility] LEFT HEART CATH & ARTS W/INJ & ANGIO IMG S&I N/A 09/10/2021 CORONARY ANGIOGRAPHY; W LHC,POSSIBLE PCI performed by Vinod Hassan MD at [facility] CATH LABS ??? PRO CABG, ARTERIAL, SINGLE N/A 09/27/2021 @CABG, USING ARTERIAL GRAFT;SINGLE ARTERIAL GRAFT (WRVU 33.75) performed by Abdon Dawson MD at [facility] MAIN OR ??? PRO CABG, ARTERY-VEIN, THREE N/A 09/27/2021 @CABG; 3 VENOUS GRAFTS & ARTERIAL GRAFT (WRVU 10.49) performed by Abdon Dawson MD at [facility] MAIN OR ??? PRO EMBLC/THRMBC FEMORAL POPLITEAL AORTO-ILIAC ARTERY Left 09/29/2021 EMBOLECTOMY OR THROMBECTOMY, FEMOROPOPLITEAL, AORTOILIAC ARTERY BY LEG INCISION (WRVU 19.48) performed by Joselito Washburn MD at [facility] MAIN OR ??? PRO ENDOSCOPY W/VIDEO-ASST VEIN HARVEST, CABG N/A 09/27/2021 ENDOSCOPIC HARVEST VEIN(S) FOR CABG (WRVU 0.31) performed by Abdon Dawson MD at [facility] MAIN OR Active Non-Hospital Problems Diagnosis [...] standing without exhibiting loss ofbalance & no zbottb-sj-viwtttr observed during gait Therapeutic Exercise: 6 repetitions [...] mobilization & ambulation with nursing & mobility gallery or museum technician staff. Discharge Recommendations: Based on the [...] to sternal precautions 3. Pt. to perform bdy-ox-bhqla transfers with modified independence using a front [...] in this evaluation. Time IN / OUT: 0168-3248 Total Minutes, Physical Therapy: 40 Fely Mejias DPT Pager: [phone] Physical Therapy Inpatient Rehabilitation Department Sam Kate [...] thrombus / embolic source of SFA clot Hatch out, voided Ambulated with PT. Significant tachycardia [...] where referrals are placed. Provided patient with [facility] Star Quality Rating for Home care Patient requests referral to : [facility] [place] [id number] and Expected date of discharge: 10/04/2021. Referral routed to the Distribution Estimator for matching with agency/vendor and to provide [...] PT - 09/30/2021 4:34 PM EDT 09/30/21 9674 Evaluation & Treatment Document Type contact Total [...] edema. Incisions: clean, dry, intact without erythema Tubes/Lines/Drains:Hatch, PIV I/O last 3 completed shifts: In: 0.2 [P.O.:965; I.V.:1095.2] Out: 3177 [Urine:2825; Blood:352] A&P 76 y.o. male 1 Day Post-Op s/p CABGx4. Extubated. HDS off vasoactive drips. Course complicated by acute left leg ischemia s/p left SFA embolectomy with vascular. Follow up on vascular recs Heparin gtt - titrate to therapeutic dose Bridge to coumadin TTE to f/o cardioembolic source Remove hatch once mobile Bowel regimen Wean O2 Neuro: APAP 1g q6h, dilaudid PRN CV: metop 25 TID, statin, gemfibrozil Pulm: NC to keep spo2>92%, pulm toilet/inhalers GI: Regular diet, protonix, RBOs : Hatch, flomax Renal: UOP adequate, lasix 20IV BID [...] Incisions: dressing CDI without drainage or crepitus. Tubes/Lines/Drains:Hatch, PIV I/O last 3 completed shifts: In: 2875.2 [P.O.:2145; I.V.:730.2] Out: 2017 [Urine:1665; Drains:27; Other:325] Net +1.4L A&P 76 y.o. male 2 Days Post-Op s/p CABGx4. Extubated. HDS off vasoactive drips. Recovering well from surgery. Increase metop to 25''' Lasix 20IV Hatch staus another day sched nebs Start Coumadin for chronic AFib Neuro: APAP 1g q6h, dilaudid PRN CV: metop 25', statin Pulm: NC to keep spo2>92%, pulm toilet GI: Regular diet, protonix, RBOs : Hatch, flomax Renal: UOP adequate, lasix 20IV Heme: [...] crepitus. Tubes/Lines/Drains: RIJ, A-line, Mediastinal CT, TPW, Hatch, PIV Hemodynamics: CI 2.2 CVP 9 Drips: [...] toilet GI: NPO diet, protonix, RBOs : Hatch flomax Renal: UOP adequate, no lasix Heme: ASA 81, Coumadin POD2 for AFib ID: periop abx complete Endo: No DM, synthroid Dispo: CVCC, Full code, Transfer Discussed with attending surgeon on AM rounds BEN To 09/28/2021 Cherrie Servin, FRUIT TRIMMER - 09/27/2021 8:36 PM EDT Protocol: CTICU [...] Plan to wean FIO2 as tolerated. CHERRIE SERVIN RRT Antwon White - 09/27/2021 6:02 PM [...] manage pt in CTICU protocol. Respiratory Pager# [phone] documented in this encounter H&P Notes Abdon Dawson MD - 09/27/2021 11:48 AM EDT No interval change, pt ready for surgery. Source Note - Abdon Dawson MD - 09/27/2021 11:43 AM EDT Cardiothoracic Surgery Consultation Richy Street is seen at the request of Dr. Santana for the evaluation of CAD. HPI: Richy Street is a 76 y.o. year old male with increasing angina with minimal effort. Problem List: Patient Active Problem List Diagnosis ??? 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 CATH LABS Family History: History reviewed. [...] wishes to proceed. We plan surgery. Abdon Dawson MD - 09/27/2021 11:43 AM EDT Cardiothoracic Surgery Consultation Richy Street is seen at the request of Dr. Santana for the evaluation of CAD. HPI: Richy Street is a 76 y.o. year old male with increasing angina with minimal effort. Problem List: Patient Active Problem List Diagnosis ??? Coronary artery disease involving wiyot heart with unstable angina pectoris, unspecified vesselor [...] ??? PACEMAKER IMPLANT ? ? PRG CATH [facility] LEFT HEART CATH & ARTS W/INJ & ANGIO IMG S&I N/A 09/10/2021 CORONARY ANGIOGRAPHY; W [facility],POSSIBLE PCI performed by Vinod Hassan MD at [facility] CATH LABS Family History: History reviewed. [...] & Follow-up Care: Contact information for follow-up [address] [address] Transportation: family or friend will provide Functional [...] Type: *No Product type* / Secondary Insurance: [employer] Prescription Coverage: Yes This plan was formulated with input from patient and team. All are in agreement with plan. I have verbally reviewed Medicare Discharge Rights with patient. Patient verbalizes understanding ofright to appeal this discharge if feeling not medically ready. Offered a copy of this letter. Stacey GAMEZ RN Phone: [phone] Pager: [phone] Consult Note - Krista Godoy RN - 10/02/2021 11:04 AM EDT [facility] CARDIAC REHABILITATION Richy Street was seen today regarding participation in the outpatient Phase 2 Cardiac Rehabilitation at [facility]. The patient agrees to a referral [...] home with VNA services Agency Referrals: [facility] in [place], [place] and [phone] Transportation: Family Barriers to discharge: None Plan going forward: Care Management will continue to follow and assist with discharge planning and coordination of care as indicated. Anticipated Date of Discharge: 10/06/2021 Office of Care Management Surgery Team Veterinary Virologist [email or web address] Pager #[phone] Consult Note - Sheila Thakkar MD - [...] Operative Note Patient Name: Richy Street : [id number] MR#: [id number] Case Date: 09/29/2021 Surgeon: Surgeon(s) and Role: * Josleito Washburn MD - Primary * Che Hayden [...] Loss: 352 mL Specimens removed during surgery: [facility] Fluids: Intraprocedure Crystalloid Total Intake Lactated [...] MD - 09/29/2021 1:35 PM EDT [facility] Operative Note Patient Name: Richy Street : [id number] MR#: [id number] Case Date: 09/29/2021 Surgeon: Surgeon(s) and Role: [...] with vessel loops. The patient was given 85859 units of intravenous heparin, which was allowed [...] Inpatient Consult Note Consultation Requested by: Abdon Dawson MD History of Present Illness: Richy Street [...] ??? PACEMAKER IMPLANT ? ? PRG CATH [facility] LEFT HEART CATH & ARTS W/INJ & ANGIO IMG S&I N/A 09/10/2021 CORONARY ANGIOGRAPHY; W [facility],POSSIBLE PCI performed by Vinod Hassan MD at [facility] CATH LABS ??? PRO CABG, ARTERIAL, SINGLE N/A 09/27/2021 @CABG, USING ARTERIAL GRAFT;SINGLE ARTERIAL GRAFT (WRVU 33.75) performed by Abdon Dawson MD at [facility] MAIN OR ??? PRO CABG, ARTERY-VEIN, THREE N/A 09/27/2021 @CABG; 3 VENOUS GRAFTS & ARTERIAL GRAFT (WRVU 10.49) performed by Abdon Dawson MD at [facility] OR ??? PRO ENDOSCOPY W/VIDEO-ASST VEIN HARVEST, CABG N/A 09/27/2021 ENDOSCOPIC HARVEST VEIN(S) FOR CABG (WRVU 0.31) performed by Abdon Dawson MD at [facility] MAIN OR Medications No current facility-administered [...] (NASACORT or NASACORT OTC) 55 mcg Aerosol, Bryan 1 spray by Nasal route daily. 55 [...] If you have any questions, please page [phone] (day/week) [phone] (night/weekend). [x] Consult service to continue to [...] surrogate would be surrogate decision maker per [place] surrogate decision making law. (Only good for 180 days) Any patient receiving care in [place] must abide by [place] law. The hierarchy for surrogate decision making [...] (i) The agent with financial power of energy attorney or a conservator appointed in accordance [...] none Current DME: none Home Address as: [address] [place] [phone] Social & Family Supports: All names listed below confirmed with patient as current and correct Extended Emergency Contact Information Primary Emergency Contact: Vy Street Address: [address] [place] [phone] [facility] Relation: Spouse Current Care Provided [...] Health/Prescription Coverage: Primary Insurance: MEDICARE Secondary Insurance: [facility] Secondary Insurance? (Only Medicare A&B): Yes ; Prescription Coverage: Yes [facility] Status: Patient is a : No Primary Care Provider: Jesusita Law MD [phone] Patient/Caregiver Goals of Treatment: Potential Needs for [...] dilaudid and tylenol. Op Note - Abdon Dawson MD - 09/27/2021 1:49 PM EDT 09/29/2021 Richy Garcia Charlie 1945 [id number] Preoperative Diagnosis: Coronary artery disease Unstable Angina Postoperative Diagnosis: Coronary artery diseaseUnstable Angina Procedure: CABG times 4: SOTO to LAD, SVG to diag and om, svg to rca. Endoscopic vein harvest Surgeon: Abdon Dawson M.D. Leasing Specialist: Mateo thornton Anesthesia: General endotracheal anesthesia Drains: [...] counts were correct. OR Attestation - Abdon Dawson MD - 09/27/2021 10:16 AM EDT Attestation: Case Date: 09/27/2021 - 09/28/2021 I performed this procedure without the involvement of a resident. Abdon Dawson MD 09/29/2021 Brief Op Note - Abdon Dawson MD - 09/27/2021 10:09 AM EDT Brief Operative Note Patient Name: Richy Street : [id number] MR#: [id number] Case Date: 09/27/2021 - 09/28/2021 Surgeon: Surgeon(s) and Role: * Abdon Dawson MD - Primary * Sam Kate PA - Physician Leasing Specialist * Davie Galindo PA - Physician Leasing Specialist Preoperative diagnosis: cad Postoperative diagnosis: CAD Procedure(s) [...] disease involving p rocedure are in OR wiyot heart with the result s unstable angina section. pectoris, unspecified vessel or lesion type PREPARE RBC STAT 09/27/2021 12:05 Results for this PM EDT procedure are i n the results section. POCT GLUCOSE Routine 09/27/2021 11:37 Results for this AM EDT procedure are i n the results section. ENDOSCOPIC HARVEST Routine 09/27/2021 10:15 Coronary artery VEIN(S) FOR CABG AM EDT disease involving wiyot heart with unstable angina pectoris, unspecified vessel or lesion type @CABG,USING ARTERIAL Routine 09/27/2021 10:15 Coronary artery GRAFT;SINGLE ARTERIAL AM EDT disease involving GRAFT wiyot heart with unstable angina pectoris, unspecified vessel or lesion type @CABG;3 VENOUS GRAFTS & Routine 09/27/2021 10:15 Coronary meghan ry ARTERIAL GRAFT AM EDT disease involving wiyot heart with unstable angina pectoris, unspecified vessel or lesion type LAB SCAN 09/27/2021 12:00 Results for this AM EDT procedure are i n the results section. documented in this encounter Results TONEY, legs, multiple levels (10/22/2021 10:44 AM EDT) Component Value Ref Test Analysis Performed At [facility] gist Range Method Time Signature VB Text Department: Vascular Surgery Lab VASCUBASE Report Patient: [id number] ([address]) CPT: 56561 Referring Physician: ABDON DAWSON ?? Indications: S/p [...] Signature POC Glucose 114 65 - 199 [facility] mg/dL [facility] LABORATORY Comment: Supplemental ranges: <140 mg/dL before meals <180 mg/dL all other times of the day Specimen Anatomical Collection Method Collection Time Receive d Time (Source) Location / / Volume Laterality Blood 10/03/2021 11:35 10/03/2021 AM EDT 11:35 AM EDT Abdon Dawson MD POINT OF CARE TEST ORDERABLE S Performing Organization Address City/[facility]/[place] [address] POCT Glucose (10/03/2021 7:23 AM EDT) P athologist Signature POC Glucose 122 65 - 199 [facility] LABORATORY Comment: Supplemental ranges: <140 mg/dL before meals <180 mg/dL all other times of the day Specimen Anatomical Collection Method Collection Time Receive d Time (Source) Location / / Volume Laterality Blood 10/03/2021 7:23 AM 7:23 EDT AM EDT Abdon Dawson MD POINT OF CARE TEST ORDERABLE S Performing Organization Address City/State/[place] [address] Heparin (unfractionated) Level (10/03/2021 4:26 AM EDT) P athologist Signature Heparin UFH 0.27 IU/mL [facility] LABORATORY Comment: Heparin (anti-Xa) levels [...] Organization Address City/State/ZIP Code Phon e Number [address] (ABNORMAL) Differential, Automated (10/03/2021 4:26 AM EDT) Patholo gist Method Time Signature Neutrophils % 63.0 % [facility] LABORATORY Neutr Abs (ANC) 6.33 (H) 1.70 - [facility] 6.10 [facility] x10(3)/[facility] L LABORATORY Lymphocytes % 18.6 % [facility] LABORATORY Lymphocytes Abs 1.9 0.9 - 3.2 [facility] x10(3)/[facility] LABORATORY Monocytes % 11.3 % [facility] LABORATORY Monocyte Abs 1.1 (H) 0.3 - 0.9 [facility] x10(3)/[facility] LABORATORY Eosinophils % 5.9 % [facility] LABORATORY Eosinophils Abs 0.6 (H) 0.0 - 0.4 [facility] x10(3)/[facility] LABORATORY Basophils % 0.5 % [facility] LABORATORY Basophils Abs 0.0 0.0 - 0.1 [facility] x10(3)/[facility] LABORATORY Immature Gran % 0.70 % [facility] LABORATORY Comment: Immature granulocytes(IG's)percentage an d absolute count will include metamyelocytes, myelocytes, and promyelo cytes. Blood smears from CBCs yielding IG's will be scanned manually for concor dance. If this scan disagrees with the automated IG or if promyelocytes are not ed, a manual differential will be performed. Anna Gran Abs 0.07 (H) 0.00 - 0.04 x10(3)/[facility] LABORATORY Specimen Anatomical Collection Method Collection Time Receive d Time (Source) Location / / Volume Laterality Blood 10/03/2021 4:26 AM 4:41 EDT AM EDT Resulting Agency Comment Spec In Lab Leilani CONTRERAS HEMATOLOGY ORDERABLES Performing Organization Address City/State/[place] [address] (ABNORMAL) Hemogram (10/03/2021 4:26 AM EDT) Analysis Performed At Patho logist Time Signature WBC 10.0 (H) 4.0 - 9.5 [facility] x10(3)/[facility] LABORATORY RBC 3.35 (L) 4.58 - [facility] 5.54 [facility] x10(6)/[facility] LABORATORY Hemoglobin 9.8 (L) 13.7 - [facility] g/dL [facility] LABORATORY Hematocrit 29.4 (L) 40.5 - [facility] 48.5 % [facility] LABORATORY MCV 87.8 82.9 - [facility] 93.1 fL [facility] LABORATORY MCH 29.3 27.5 - [facility] 32.1 pg [facility] LABORATORY MCHC 33.3 32.0 - [facility] 35.7 g/dL [facility] LABORATORY Platelets 238 145 - 357 [facility] x10(3)/[facility] LABORATORY RDWSD 46.2 (H) 36.0 - [facility] 45.0 [facility] LABORATORY RDWCV 14.4 (H) 11.4 - [facility] 13.8 % [facility] LABORATORY MPV 11.0 7.6 - 12.9 [facility] LABORATORY nRBC % Auto 0.0 % [facility] LABORATORY nRBC Abs Auto 0.000 0.000 - [facility] 0.000 [facility] x10(3)/[facility] LABORATORY Specimen Anatomical Collection Method Collection Time Receive d Time (Source) Location / / Volume Laterality Blood 10/03/2021 4:26 AM 2 4:41 EDT AM EDT Resulting Agency Comment Spec In Lab Leilani CONTRERAS HEMATOLOGY ORDERABLES Performing Organization Address City/[facility]/[place] [address] (ABNORMAL) Prothrombin Time (10/03/2021 4:26 AM EDT) P athologist Signature PT 13.7 (H) 9.4 - 12.5 [facility] LABORATORY INR 1.2 [facility] LABORATORY Comment: An INR <2.0 [...] Dawson MD HEMATOLOGY ORDERABLES Performing Organization Address City/[facility]/ZIP Code Phon e Number [address] Potassium (10/03/2021 4:26 AM EDT) P athologist Signature Potassium 4.1 3.5 - 5.0 [facility] mmol/L [facility] LABORATORY Comment: Please note: [...] Organization Address City/State/ZIP Code Phon e Number [address] POCT Glucose (10/02/2021 8:15 PM EDT) athologist Signature POC Glucose 151 65 - 199 [facility] mg/dL [facility] LABORATORY Comment: Supplemental ranges: <140 mg/dL before meals <180 mg/dL all other times of the day Specimen Anatomical Collection Method Collection Time Receive d Time (Source) Location / / Volume Laterality Blood 10/02/2021 8:15 PM 2 8:15 EDT PM EDT Abdon Dawson MD POINT OF CARE TEST ORDERABLE S Performing Organization Address City/[facility]/ZIP Code Phon e Number [address] POCT Glucose (10/02/2021 4:14 PM EDT) athologist Signature POC Glucose 140 65 - 199 [facility] mg/dL [facility] LABORATORY Comment: Supplemental ranges: <140 mg/dL before meals <180 mg/dL all other times of the day Specimen Anatomical Collection Method Collection Time Receive d Time (Source) Location / / Volume Laterality Blood 10/02/2021 4:14 PM 2 4:14 EDT PM EDT Abdon Dawson MD POINT OF CARE TEST ORDERABLE S Performing Organization Address City/State/[place] [address] Potassium (10/02/2021 2:28 PM EDT) athologist Signature Potassium 4.2 3.5 - 5.0 [facility] mmol/L [facility] LABORATORY Comment: Please note: [...] / Volume Laterality Blood 10/02/2021 2:28 PM 2:52 EDT PM EDT Resulting Agency Comment Spec In Lab Abdon Dawson MD CHEMISTRY ORDERABLES Performing Organization Address City/[facility]/ZIP Code Phon e Number [address] POCT Glucose (10/02/2021 10:55 AM EDT) athologist Signature POC Glucose 153 65 - 199 [facility] mg/dL [facility] LABORATORY Comment: Supplemental ranges: <140 mg/dL before meals <180 mg/dL all other times of the day Specimen Anatomical Collection Method Collection Time Receive d Time (Source) Location / / Volume Laterality Blood 10/02/2021 10:55 10/02/2021 AM EDT 10:55 AM EDT Abdon Dawson MD POINT OF CARE TEST ORDERABLE S Performing Organization Address City/[facility]/[place] [address] POCT Glucose (10/02/2021 7:33 AM EDT) athologist Signature POC Glucose 143 65 - 199 [facility] mg/dL [facility] LABORATORY Comment: Supplemental ranges: <140 mg/dL before meals <180 mg/dL all other times of the day Specimen Anatomical Collection Method Collection Time Receive d Time (Source) Location / / Volume Laterality Blood 10/02/2021 7:33 AM 7:33 EDT AM EDT Abdon Dawson MD POINT OF CARE TEST ORDERABLE S Performing Organization Address City/State/[place] [address] Heparin (unfractionated) Level (10/02/2021 3:59 AM EDT) P athologist Signature Heparin UFH 0.24 IU/mL [facility] LABORATORY Comment: Heparin (anti-Xa) levels [...] Dawson MD HEMATOLOGY ORDERABLES Performing Organization Address City/[facility]/[place] [address] (ABNORMAL) Differential, Automated (10/02/2021 3:59 AM EDT) Patholo gist Method Time Signature Neutrophils % 62.1 % [facility] LABORATORY Neutr Abs (ANC) 6.87 (H) 1.70 - [facility] 6.10 [facility] x10(3)/[facility] L LABORATORY Lymphocytes % 18.4 % [facility] LABORATORY Lymphocytes Abs 2.0 0.9 - 3.2 [facility] x10(3)/[facility] LABORATORY Monocytes % 12.9 % [facility] LABORATORY Monocyte Abs 1.4 (H) 0.3 - 0.9 [facility] x10(3)/[facility] LABORATORY Eosinophils % 5.1 % [facility] LABORATORY Eosinophils Abs 0.6 (H) 0.0 - 0.4 [facility] x10(3)/[facility] LABORATORY Basophils % 0.9 % [facility] LABORATORY Basophils Abs 0.1 0.0 - 0.1 [facility] x10(3)/[facility] LABORATORY Immature Gran % 0.60 % [facility] LABORATORY Comment: Immature granulocytes(IG's)percentage an d absolute count will include metamyelocytes, myelocytes, and promyelo cytes. Blood smears from CBCs yielding IG's will be scanned manually for concor dance. If this scan disagrees with the automated IG or if promyelocytes are not ed, a manual differential will be performed. Anna Gran Abs 0.07 (H) 0.00 - 0.04 x10(3)/[facility] LABORATORY Specimen Anatomical Collection Method Collection Time Receive d Time (Source) Location / / Volume Laterality Blood 10/02/2021 3:59 AM 4:25 EDT AM EDT Resulting Agency Comment Spec In Lab Leilani CONTRERAS HEMATOLOGY ORDERABLES Performing Organization Address City/State/[place] [address] (ABNORMAL) Hemogram (10/02/2021 3:59 AM EDT) Analysis Performed At Patho logist Time Signature WBC 11.1 (H) 4.0 - 9.5 [facility] x10(3)/[facility] LABORATORY RBC 3.62 (L) 4.58 - [facility] 5.54 [facility] x10(6)/[facility] LABORATORY Hemoglobin 10.3 (L) 13.7 - [facility] 16.5 g/dL [facility] LABORATORY Hematocrit 31.7 (L) 40.5 - [facility] 48.5 % [facility] LABORATORY MCV 87.6 82.9 - [facility] 93[facility]1 fL [facility] LABORATORY MCH 28.5 27.5 - [facility] 32.1 pg [facility] LABORATORY MCHC 32.5 32.0 - [facility] 35.7 g/dL [facility] LABORATORY Platelets 190 145 - 357 [facility] x10(3)/[facility] LABORATORY RDWSD 45.9 (H) 36.0 - [facility] 45.0 [facility] LABORATORY RDWCV 14.4 (H) 11.4 - [facility] 13.8 % [facility] LABORATORY MPV 11.1 7.6 - 12.9 [facility] LABORATORY nRBC % Auto 0.0 % [facility] LABORATORY nRBC Abs Auto 0.000 0.000 - [facility] 0.000 [facility] x10(3)/[facility] LABORATORY Specimen Anatomical Collection Method Collection Time Receive d Time (Source) Location / / Volume Laterality Blood 10/02/2021 3:59 AM 2 4:25 EDT AM EDT Resulting Agency Comment Spec In Lab Leilani CONTRERAS HEMATOLOGY ORDERABLES Performing Organization Address City/[facility]/[place] [address] (ABNORMAL) Prothrombin Time (10/02/2021 3:59 AM EDT) P athologist Signature PT 12.6 (H) 9.4 - 12.5 [facility] LABORATORY INR 1.1 [facility] LABORATORY Comment: An INR <2.0 [...] Dawson MD HEMATOLOGY ORDERABLES Performing Organization Address City/[facility]/[place] [address] (ABNORMAL) Potassium (10/02/2021 3:59 AM EDT) P athologist Signature Potassium 3.4 (L) 3.5 - 5.0 [facility] mmol/L [facility] LABORATORY Comment: Please note: [...] Dawson MD CHEMISTRY ORDERABLES Performing Organization Address City/[facility]/[place] [address] POCT Glucose (10/01/2021 7:43 PM EDT) athologist Signature POC Glucose 152 65 - 199 [facility] mg/dL [facility] LABORATORY Comment: Supplemental ranges: <140 mg/dL before meals <180 mg/dL all other times of the day Specimen Anatomical Collection Method Collection Time Receive d Time (Source) Location / / Volume Laterality Blood 10/01/2021 7:43 PM 2 7:43 EDT PM EDT Abdon Dawson MD POINT OF CARE TEST ORDERABLE S Performing Organization Address City/[facility]/[place] [address] POCT Glucose (10/01/2021 5:08 PM EDT) athologist Signature POC Glucose 131 65 - 199 [facility] mg/dL [facility] LABORATORY Comment: Supplemental ranges: <140 mg/dL before meals <180 mg/dL all other times of the day Specimen Anatomical Collection Method Collection Time Receive d Time (Source) Location / / Volume Laterality Blood 10/01/2021 5:08 PM 2 5:08 EDT PM EDT Abdon Dawson MD POINT OF CARE TEST ORDERABLE S Performing Organization Address City/[facility]/[place] [address] POCT Glucose (10/01/2021 11:49 AM EDT) athologist Signature POC Glucose 196 65 - 199 [facility] mg/dL [facility] LABORATORY Comment: Supplemental ranges: <140 mg/dL before meals <180 mg/dL all other times of the day Specimen Anatomical Collection Method Collection Time Receive d Time (Source) Location / / Volume Laterality Blood 10/01/2021 11:49 10/01/2021 AM EDT 11:49 AM EDT Abdon Dawson MD POINT OF CARE TEST ORDERABLE S Performing Organization Address City/State/ZIP Code Phon e Number [address] POCT Glucose (10/01/2021 7:54 AM EDT) athologist Signature POC Glucose 159 65 - 199 [facility] mg/dL [facility] LABORATORY Comment: Supplemental ranges: <140 mg/dL before meals <180 mg/dL all other times of the day Specimen Anatomical Collection Method Collection Time Receive d Time (Source) Location / / Volume Laterality Blood 10/01/2021 7:54 AM 7:54 EDT AM EDT Abdon Dawson MD POINT OF CARE TEST ORDERABLE S Performing Organization Address City/State/[place] [address] Heparin (unfractionated) Level (10/01/2021 3:25 AM EDT) athologist Signature Heparin UFH 0.22 IU/mL [facility] LABORATORY Comment: Heparin (anti-Xa) levels [...] Organization Address City/State/[place] [address] (ABNORMAL) Differential, Automated (10/01/2021 3:25 AM EDT) [facility] Method Time Signature Neutrophils % 72.5 % [facility] LABORATORY Neutr Abs (ANC) 9.30 (H) 1.70 - [facility] 6.10 [facility] x10(3)/[facility] LABORATORY Lymphocytes % 12.3 % [facility] LABORATORY Lymphocytes Abs 1.6 0.9 - 3.2 [facility] x10(3)/[facility] LABORATORY Monocytes % 11.2 % [facility] LABORATORY Monocyte Abs 1.4 (H) 0.3 - 0.9 [facility] x10(3)/[facility] LABORATORY Eosinophils % 3.0 % [facility] LABORATORY Eosinophils Abs 0.4 0.0 - 0.4 [facility] x10(3)/[facility] LABORATORY Basophils % 0.5 % [facility] LABORATORY Basophils Abs 0.1 0.0 - 0.1 [facility] x10(3)/[facility] LABORATORY Immature Gran % 0.50 % [facility] LABORATORY Comment: Immature granulocytes(IG's)percentage an d absolute count will include metamyelocytes, myelocytes, and promyelo cytes. Blood smears from CBCs yielding IG's will be scanned manually for concor dance. If this scan disagrees with the automated IG or if promyelocytes are not ed, a manual differential will be performed. Anna Gran Abs 0.06 (H) 0.00 - 0.04 x10(3)/[facility] LABORATORY Specimen Anatomical Collection Method Collection Time Receive d Time (Source) Location / / Volume Laterality Blood 10/01/2021 3:25 AM 2 3:57 EDT AM EDT Resulting Agency Comment Spec In Lab Leilani CONTRERAS HEMATOLOGY ORDERABLES Performing Organization Address City/State/[place] [address] (ABNORMAL) Hemogram (10/01/2021 3:25 AM EDT) Analysis Performed At Patho logist Time Signature WBC 12.8 (H) 4.0 - 9.5 [facility] x[facility](3[facility] LABORATORY RBC 3.36 (L) 4.58 - [facility] 5.54 [facility] x10(6)/[facility] LABORATORY Hemoglobin 9.8 (L) 13.7 - [facility] 16.5 g/dL [facility] LABORATORY Hematocrit 29.4 (L) 40.5 - [facility] 48.5 % [facility] LABORATORY MCV 87.5 82.9 - [facility] 93.1 [facility] LABORATORY MCH 29.2 27.5 - [facility] 32.1 pg [facility] LABORATORY MCHC 33.3 32.0 - [facility] 35.7 g/dL [facility] LABORATORY Platelets 170 145 - 357 [facility] x10(3)/[facility] LABORATORY RDWSD 45.3 (H) 36.0 - [facility] 45.0 [facility] LABORATORY RDWCV 14.2 (H) 11.4 - [facility] 13.8 % [facility] LABORATORY MPV 11.2 7.6 - 12.9 [facility] nRBC % Auto 0.0 % [facility] LABORATORY nRBC Abs Auto 0.000 0.000 - [facility] 0.000 [facility] x10(3)/[facility] LABORATORY Specimen Anatomical Collection Method Collection Time Receive d Time (Source) Location / / Volume Laterality Blood 10/01/2021 3:25 AM 2 3:57 EDT AM EDT Resulting Agency Comment Spec In Lab Leilani CONTRERAS HEMATOLOGY ORDERABLES Performing Organization Address City/State/[facility] [place] [address] Prothrombin Time (10/01/2021 3:25 AM EDT) athologist Signature PT 12.4 9.4 - 12.5 [facility] LABORATORY INR 1.1 [facility] LABORATORY Comment: An INR <2.0 [...] Dawson MD HEMATOLOGY ORDERABLES Performing Organization Address [facility]/[place] [address] (ABNORMAL) Potassium (10/01/2021 3:25 AM EDT) athologist Signature Potassium 3.4 (L) 3.5 - 5.0 [facility] mmol/L [facility] LABORATORY Comment: Please note: [...] Dawson MD CHEMISTRY ORDERABLES Performing Organization Address City/[facility]/[place] [address] Heparin (unfractionated) Level (09/30/2021 8:23 PM EDT) athologist Signature Heparin UFH 0.24 IU/mL [facility] LABORATORY Comment: Heparin (anti-Xa) levels [...] Organization Address City/State/ZIP Code Phon e Number [address] POCT Glucose (09/30/2021 7:42 PM EDT) athologist Signature POC Glucose 188 65 - 199 [facility] mg/dL [facility] LABORATORY Comment: Supplemental ranges: <140 mg/dL before meals <180 mg/dL all other times of the day Specimen Anatomical Collection Method Collection Time Receive d Time (Source) Location / / Volume Laterality Blood 09/30/2021 7:42 PM 2 7:42 EDT PM EDT Abdon Dawson MD POINT OF CARE TEST ORDERABLE S Performing Organization Address City/State/[place] [address] POCT Glucose (09/30/2021 4:22 PM EDT) athologist Signature POC Glucose 164 65 - 199 [facility] mg/dL [facility] LABORATORY Comment: Supplemental ranges: <140 mg/dL before meals <180 mg/dL all other times of the day Specimen Anatomical Collection Method Collection Time Receive d Time (Source) Location / / Volume Laterality Blood 09/30/2021 4:22 PM 2 4:22 EDT PM EDT Abdon Dawson MD POINT OF CARE TEST ORDERABLE S Performing Organization Address City/[facility]/[place] [address] Heparin (unfractionated) Level (09/30/2021 1:48 PM EDT) athologist Signature Heparin UFH 0.23 IU/mL [facility] LABORATORY Comment: Heparin (anti-Xa) levels [...] Dawson MD HEMATOLOGY ORDERABLES Performing Organization Address City/[facility]/[place] [address] POCT Glucose (09/30/2021 11:39 AM EDT) athologist Signature POC Glucose 158 65 - 199 [facility] mg/dL [facility] LABORATORY Comment: Supplemental ranges: <140 mg/dL before meals <180 mg/dL all other times of the day Specimen Anatomical Collection Method Collection Time Receive d Time (Source) Location / / Volume Laterality Blood 09/30/2021 11:39 09/30/2021 AM EDT 11:39 AM EDT Abdon Dawson MD POINT OF CARE TEST ORDERABLE S Performing Organization Address City/State/ZIP Code Phon e Marichuy RAO [place] [id number]OS[address] LAB[address] ECHOCARDIOGRAM LMTD W CONTRAST [...] 10:39 AMBP: 128/89 mmHg ? [place] [facility] [place] 1945 ? Height: 170 cm ? Account: [id number] Age: 76 yrs ? Weight: 115 kg Gender: Male ?BSA: 2.2 m2 Ordering Physician: KALLIE^ABDON^P Referring Physician: Abdon Dawson Performed By: Azar Argueta, ACS, RCS Exam Location: [facility]. Interpretation Summary Patient is in atrial fibrillation during the study. Technically difficult study. LV function is normal with LVEF of 65% w ith beat to beat variability. There is a possible focal apical wall motion abnorm ality. Right ventricular size and function are normal. There is no hemodynamically significant valvular disease present. No prior transthoracic echo for comparis on. Procedure Limited - [id number]. Image enhancement Optis on was used for [...] 09/10 10:39 AMBP: 128/89 mmHg Patient Location: [place] [address] A : 1945 Height: 170 cm Account: [id number] Age: 76 yrs Weight: 115 kg Gender: Male BSA: 2.2 m2 Ordering Physician: KALLIE^ABDON^Murali Referring Physician: Abdon Dawson Performed By: Azar Argueta, ACS, RCS Exam Location: [facility]. Interpretation Summary Patient is in atrial fibrillation during the study. Technically difficult study. LV function is normal with LVEF of 65% w ith beat to beat variability. There is a possible focal apical wall motion abnorm ality. Right ventricular size and function are normal. There is no hemodynamically significant valvular disease present. No prior transthoracic echo for comparis on. Procedure Limited - [id number]. Image enhancement Optis on was used for [...] 15-16 diffuse Abdon Dawson MD ECHO ORDERABLES XR Chest PA & [...] who have questions please contact the health healthcare project manager that requested your imaging first. ? [...] ho have questions please contact the health healthcare project manager that requested your imaging first. Abdon Dawson MD IMG DX ORDERABLES Prothrombin Time (09/30/2021 9:12 AM EDT) athologist Signature PT 12.2 9.4 - 12.5 [facility] LABORATORY INR 1.1 [facility] LABORATORY Comment: An INR <2.0 [...] Organization Address City/State/[place] [address] (ABNORMAL) Differential, Automated (09/30/2021 3:25 AM EDT) [facility] gist Method Time Signature Neutrophils % 80.1 % [facility] LABORATORY Neutr Abs (ANC) 11.70 (H) 1.70 - [facility] 6.10 [facility] x10(3)/[facility] LABORATORY Lymphocytes % 9.9 % [facility] LABORATORY Lymphocytes Abs 1.4 0.9 - 3.2 [facility] x10(3)/[facility] LABORATORY Monocytes % 9.5 % [facility] LABORATORY Monocyte Abs 1.4 (H) 0.3 - 0.9 [facility] x10(3)/[facility] LABORATORY Eosinophils % 0.0 % [facility] LABORATORY Eosinophils Abs 0.0 0.0 - 0.4 [facility] x10(3)/[facility] LABORATORY Basophils % 0.1 % [facility] LABORATORY Basophils Abs 0.0 0.0 - 0.1 [facility] x10(3)/[facility] LABORATORY Immature Gran % 0.40 % [facility] LABORATORY Comment: Immature granulocytes(IG's)percentage an d absolute count will include metamyelocytes, myelocytes, and promyelo cytes. Blood smears from CBCs yielding IG's will be scanned manually for concor dance. If this scan disagrees with the automated IG or if promyelocytes are not ed, a manual differential will be performed. Anna Gran Abs 0.06 (H) 0.00 - 0.04 x10(3)/[facility] LABORATORY Specimen Anatomical Collection Method Collection Time Receive d Time (Source) Location / / Volume Laterality Blood 09/30/2021 3:25 AM 3:41 EDT AM EDT Resulting Agency Comment Spec In Lab Che Hayden MD HEMATOLOGY ORDERABLES Performing Organization Address City/State/[place] [address] (ABNORMAL) Hemogram (09/30/2021 3:25 AM EDT) Analysis Performed At Patho logist Time Signature WBC 14.6 (H) 4.0 - 9.5 [facility] x10(3)/[facility] LABORATORY RBC 3.65 (L) 4.58 - [facility] 5.54 [facility] x10(6)/[facility] LABORATORY Hemoglobin 10.6 (L) 13.7 - [facility] 16.5 g/dL [facility] LABORATORY Hematocrit 32.5 (L) 40.5 - [facility] 48.5 % [facility] LABORATORY MCV 89.0 82.9 - [facility] 93.1 fL [facility] LABORATORY MCH 29.0 27.5 - [facility] 32.1 pg [facility] LABORATORY MCHC 32.6 32.0 - [facility] 35.7 g/dL [facility] LABORATORY Platelets 143 (L) 145 - 357 [facility] x10(3)/[facility] LABORATORY RDWSD 45.8 (H) 36.0 - [facility] 45.0 [facility] LABORATORY RDWCV 14.1 (H) 11.4 - [facility] 13.8 % [facility] LABORATORY MPV 10.6 7.6 - 12.9 [facility] LABORATORY nRBC % Auto 0.0 % [facility] LABORATORY nRBC Abs Auto 0.000 0.000 - [facility] 0.000 [facility] x10(3)/[facility] LABORATORY Specimen Anatomical Collection Method Collection Time Receive d Time (Source) Location / / Volume Laterality Blood 09/30/2021 3:25 AM 3:41 EDT AM EDT Resulting Agency Comment Spec In Lab Che Hayden MD HEMATOLOGY ORDERABLES Performing Organization Address City/State/[place] [address] (ABNORMAL) Basic Metabolic Panel (non-fasting) (09/30/2021 3:25 AM EDT) P athologist Signature Glucose Lvl 142 65 - 199 [facility] mg/dL [facility] LABORATORY Comment: Diabetes: >=200 mg/dL plus symp toms BUN 14 10 - 20 mg/dL [facility] LABORATORY Creatinine 0.71 (L) 0.80 - 1.50 mg/dL [facility] LABORATORY Sodium 138 135 - [...] estions. Chloride 104 98 - 107 mmol/L [facility] LABORATORY CO2 24 22 - 31 mmol/L [facility] LABORATORY Anion Gap 10 5 - 15 mmol/L [facility] LABORATORY Calcium 8.3 (L) 8.5 - 10.5 mg/dL [facility] LABORATORY Comment: result rechecked-sf Estimated GFR 96 >=60 mL/min/1.73 m?? [facility] LABORATORY Comment: This patient's estimated [...] Organization Address City/State/ZIP Code Phon e Number [place] [id number] LAB[address]ORY Drive (ABNORMAL) Differential, Automated (09/29/2021 8:59 PM EDT) [facility] Method Time Signature Neutrophils % 89.4 % [facility] LABORATORY Neutr Abs (ANC) 14.75 (H) 1.70 - [facility] 6.10 [facility] x10(3)/[facility] L LABORATORY Lymphocytes % 4.2 % [facility] LABORATORY Lymphocytes Abs 0.7 (L) 0.9 - 3.2 [facility] x10(3)/[facility] LABORATORY Monocytes % 5.6 % [facility] LABORATORY Monocyte Abs 0.9 0.3 - 0.9 [facility] x10(3)/[facility] LABORATORY Eosinophils % 0.1 % [facility] LABORATORY Eosinophils Abs 0.0 0.0 - 0.4 [facility] x10(3)/[facility] LABORATORY Basophils % 0.2 % [facility] LABORATORY Basophils Abs 0.0 0.0 - 0.1 [place] 926710(3)/[facility] LABORATORY Immature Gran % 0.50 % [facility] LABORATORY Comment: Immature granulocytes(IG's)percentage an d absolute count will include metamyelocytes, myelocytes, and promyelo cytes. Blood smears from CBCs yielding IG's will be scanned manually for concor dance. If this scan disagrees with the automated IG or if promyelocytes are not ed, a manual differential will be performed. Anna Gran Abs 0.08 (H) 0.00 - 0.04 x10(3)/[facility] LABORATORY Specimen Anatomical Collection Method Collection Time Receive d Time (Source) Location / / Volume Laterality Blood 09/29/2021 8:59 PM 9:10 EDT PM EDT Resulting Agency Comment Spec In Lab Sam CONTRERAS HEMATOLOGY ORDERABLES Performing Organization Address City/State/[place] [address] (ABNORMAL) Hemogram (09/29/2021 8:59 PM EDT) Analysis Performed At Patho logist Time Signature WBC 16.5 (H) 4.0 - 9.5 [facility] x10(3)/[facility] LABORATORY RBC 3.88 (L) 4.58 - [facility] 5.54 [facility] x10(6)/[facility] LABORATORY Hemoglobin 11.1 (L) 13.7 - [facility]/dL [facility] LABORATORY Hematocrit 33.9 (L) 40.5 - [facility] 48.5 % [facility] LABORATORY MCV 87.4 82.9 - [facility] 93.1 [facility] LABORATORY MCH 28.6 27.5 - [facility] 32.1 pg [facility] LABORATORY MCHC 32.7 32.0 - [facility] 35.7 g/dL [facility] LABORATORY Platelets 145 145 - 357 [facility] x10(3)/[facility] LABORATORY RDWSD 45.8 (H) 36.0 - [facility] 45.0 [facility] RDWCV 14.3 (H) 11.4 - [facility] 13.8 % [facility] LABORATORY MPV 11.0 7.6 - 12.9 [facility] fL [facility] LABORATORY nRBC % Auto 0.0 % [facility] LABORATORY nRBC Abs Auto 0.000 0.000 - [facility] 0.000 [facility] x10(3)/[facility] LABORATORY Specimen Anatomical Collection Method Collection Time Receive d Time (Source) Location / / Volume Laterality Blood 09/29/2021 8:59 PM 9:10 EDT PM EDT Resulting Agency Comment Spec In Lab Sam CONTRERAS HEMATOLOGY ORDERABLES Performing Organization Address City/State/[place] [address] (ABNORMAL) BLOOD GAS 2 ARTERIAL (09/29/2021 1:32 PM EDT) Analysis Performed At Patho logist Time Signature pH Art 7.36 7.35 - [facility] 7.45 [facility] LABORATORY pCO2 Art 39 35 - 45 [facility] LABORATORY pO2 Art 209 (H) 85 - 104 [facility] LABORATORY HCO3 Art 21.2 20.0 - [facility] 26.0 [facility] mmol/L [facility] LABORATORY BE Art -4.0 (L) -3.0 - 3.0 [facility] mmol/L [facility] LABORATORY Hgb Blood Gas 11.5 (L) 13.7 - [facility] 16.5 g/dL [facility] O2HB Art 98.5 (H) 94.0 - [facility] 97.0 % [facility] LABORATORY COHB Art 0.4 % [facility] LABORATORY Comment: Nonsmokers: 0.5-1.5% COHB Smokers: Variable, but usually less than 10% Toxic: 20-30% COHB Lethal: Greater than 60% COHB METHB Art 0.3 <=1.5 % [facility] LABORATORY Na Whole Blood 134 (L) 135 - 145 mmol/L [facility] LABORATORY K Whole Blood 3.8 3.5 - 5.0 mmol/L [facility] LABORATORY Comment: Please note: Patients with WBC >100,000 may have falsely elevated Potassium levels. Contact the Clinical Chemistry L aboratory if there are any questions. ICa Whole Blood 1.12 (L) 1.15 - 1.33 mmol/L [facility] LABORATORY Comment: Note: ??Total bilirubin higher than 20 m g/dL may lead to falsely low ionized calcium. CL Whole Blood 104 98 - 107 mmol/L [facility] LABORATORY Gluc Whole Bld 134 65 - 199 mg/dL [facility] LABORATORY Comment: Diabetes: >=200 mg/dL plus symp toms. Lactate WB 1.4 0.5 - 2.2 mmol/L [facility] LABORATORY FIO2 Art 60 % [facility] LABORATORY Flow Art 1.0 LPM [facility] LABORATORY PF Ratio Art 348 [facility] LABORATORY Temp Art 38.2 Celsius [facility] LABORATORY Specimen Anatomical Collection Method Collection Time Receive d Time (Source) Location / / Volume Laterality Blood 09/29/2021 1:32 PM 2 1:32 EDT PM EDT Abdon Dawson MD CHEMISTRY ORDERABLES Performing Organization Address City/State/[place] [address] Arterial Duplex Leg, Unil (09/29/2021 12:08 PM EDT) Component Value Ref Test Analysis Performed At [facility] gist Range Method Time Signature VB Text Department: Vascular Surgery Lab VASCUBASE Report Patient: [id number] ([address]) CPT: 55013 Referring Physician: JOSELITO WASHBURN ?? Phone: Indications: [...] athologist Signature Potassium 3.9 3.5 - 5.0 [facility] mmol/L [facility] LABORATORY Comment: Please note: [...] Dawson MD CHEMISTRY ORDERABLES Performing Organization Address [facility] Phon e Number [address] POCT Glucose (09/28/2021 4:29 PM EDT) athologist Signature POC Glucose 134 65 - 199 [facility] mg/dL [facility] LABORATORY Comment: Supplemental ranges: <140 mg/dL before meals <180 mg/dL all other times of the day Specimen Anatomical Collection Method Collection Time Receive d Time (Source) Location / / Volume Laterality Blood 09/28/2021 4:29 PM 2 4:29 EDT PM EDT Abdon Dawson MD POINT OF CARE TEST ORDERABLE S Performing Organization Address City/[facility]/ZIP [facility] [place] [place] [address] POCT Glucose (09/28/2021 12:19 PM EDT) athologist Signature POC Glucose 149 65 - 199 [facility] mg/dL [facility] LABORATORY Comment: Supplemental ranges: <140 mg/dL before meals <180 mg/dL all other times of the day Specimen Anatomical Collection Method Collection Time Receive d Time (Source) Location / / Volume Laterality Blood 09/28/2021 12:19 09/28/2021 PM EDT 12:19 PM EDT Abdon Dawson MD POINT OF CARE TEST ORDERABLE S Performing Organization Address City/State/[place] [address] POCT Glucose (09/28/2021 10:57 AM EDT) athologist Signature POC Glucose 138 65 - 199 [facility] mg/dL [facility] LABORATORY Comment: Supplemental ranges: <140 mg/dL before meals <180 mg/dL all other times of the day Specimen Anatomical Collection Method Collection Time Receive d Time (Source) Location / / Volume Laterality Blood 09/28/2021 10:57 09/28/2021 AM EDT 10:57 AM EDT Abdon Dawson MD POINT OF CARE TEST ORDERABLE S Performing Organization Address City/State/[place] [address] POCT Glucose (09/28/2021 9:49 AM EDT) athologist Signature POC Glucose 131 65 - 199 [facility] mg/dL [facility] LABORATORY Comment: Supplemental ranges: <140 mg/dL before meals <180 mg/dL all other times of the day Specimen Anatomical Collection Method Collection Time Receive d Time (Source) Location / / Volume Laterality Blood 09/28/2021 9:49 AM 9:49 EDT AM EDT Abdon Dawson MD POINT OF CARE TEST ORDERABLE S Performing Organization Address City/State/[place] [address] POCT Glucose (09/28/2021 8:16 AM EDT) athologist Signature POC Glucose 144 65 - 199 [place] mg/dL [facility] LABORATORY Comment: Supplemental ranges: <140 mg/dL before meals <180 mg/dL all other times of the day Specimen Anatomical Collection Method Collection Time Receive d Time (Source) Location / / Volume Laterality Blood 09/28/2021 8:16 AM 2 8:16 EDT AM EDT Abdon Dawson MD POINT OF CARE TEST ORDERABLE S Performing Organization Address City/State/ZIP Code Phon e Number [address] POCT Glucose (09/28/2021 7:00 AM EDT) athologist Signature POC Glucose 144 65 - 199 [facility] mg/dL [facility] LABORATORY Comment: Supplemental ranges: <140 mg/dL before meals <180 mg/dL all other times of the day Specimen Anatomical Collection Method Collection Time Receive d Time (Source) Location / / Volume Laterality Blood 09/28/2021 7:00 AM 2 7:00 EDT AM EDT Abdon Dawson MD POINT OF CARE TEST ORDERABLE S Performing Organization Address City/State/ZIP Code Phon e Number [address] POCT Glucose (09/28/2021 6:41 AM EDT) athologist Signature POC Glucose 128 65 - 199 [place] mg/dL [facility] LABORATORY Comment: Supplemental ranges: <140 mg/dL before meals <180 mg/dL all other times of the day Specimen Anatomical Collection Method Collection Time Receive d Time (Source) Location / / Volume Laterality Blood 09/28/2021 6:41 AM 2 6:41 EDT AM EDT Abdon Dawson MD POINT OF CARE TEST ORDERABLE S Performing Organization Address City/State/[place] [address] POCT Glucose (09/28/2021 5:56 AM EDT) athologist Signature POC Glucose 154 65 - 199 [facility] mg/dL [facility] LABORATORY Comment: Supplemental ranges: <140 mg/dL before meals <180 mg/dL all other times of the day Specimen Anatomical Collection Method Collection Time Receive d Time (Source) Location / / Volume Laterality Blood 09/28/2021 5:56 AM 2 5:56 EDT AM EDT Abdon Dawson MD POINT OF CARE TEST ORDERABLE S Performing Organization Address City/State/ZIP Code Phon e Number [address] POCT Glucose (09/28/2021 4:58 AM EDT) athologist Signature POC Glucose 150 65 - 199 [facility] mg/dL [facility] LABORATORY Comment: Supplemental ranges: <140 mg/dL before meals <180 mg/dL all other times of the day Specimen Anatomical Collection Method Collection Time Receive d Time (Source) Location / / Volume Laterality Blood 09/28/2021 4:58 AM 2 4:58 EDT AM EDT Abdon Dawson MD POINT OF CARE TEST ORDERABLE S Performing Organization Address City/State/ZIP Code Phon e Number [address] POCT Glucose (09/28/2021 3:58 AM EDT) athologist Signature POC Glucose 153 65 - 199 [facility] mg/dL [facility] LABORATORY Comment: Supplemental ranges: <140 mg/dL before meals <180 mg/dL all other times of the day Specimen Anatomical Collection Method Collection Time Receive d Time (Source) Location / / Volume Laterality Blood 09/28/2021 3:58 AM 2 3:58 EDT AM EDT Abdon Dawson MD POINT OF CARE TEST ORDERABLE S Performing Organization Address City/State/ZIP Code Phon e Number [address] (ABNORMAL) Differential, Automated (09/28/2021 2:15 AM EDT) [facility] gist Method Time Signature Neutrophils % 87.6 % [facility] LABORATORY Neutr Abs (ANC) 11.58 (H) 1.70 - [facility] 6.10 [facility] x10(3)/[facility] LABORATORY Lymphocytes % 5.2 % [facility] LABORATORY Lymphocytes Abs 0.7 (L) 0.9 - 3.2 [facility] x10(3)/[facility] LABORATORY Monocytes % 6.7 % [facility] LABORATORY Monocyte Abs 0.9 0.3 - 0.9 [facility] x10(3)/[facility] LABORATORY Eosinophils % 0.0 % [facility] LABORATORY Eosinophils Abs 0.0 0.0 - 0.4 [facility] x10(3)/[facility] LABORATORY Basophils % 0.2 % [facility] LABORATORY Basophils Abs 0.0 0.0 - 0.1 [facility] x10(3)/[facility] LABORATORY Immature Gran % 0.30 % [facility] LABORATORY Comment: Immature granulocytes(IG's)percentage an d absolute count will include metamyelocytes, myelocytes, and promyelo cytes. Blood smears from CBCs yielding IG's will be scanned manually for concor dance. If this scan disagrees with the automated IG or if promyelocytes are not ed, a manual differential will be performed. Anna Gran Abs 0.04 0.00 - 0.04 x10(3)/[facility] LABORATORY Specimen Anatomical Collection Method Collection Time Receive d Time (Source) Location / / Volume Laterality Blood 09/28/2021 2:15 AM 2 2:27 EDT AM EDT Resulting Agency Comment Spec In Lab Davie CONTRERAS HEMATOLOGY ORDERABLES Performing Organization Address City/State/[place] [address] (ABNORMAL) Hemogram (09/28/2021 2:15 AM EDT) Analysis Performed At Patho logist Time Signature WBC 13.2 (H) 4.0 - 9.5 [facility] x10(3)/[facility] LABORATORY RBC 3.73 (L) 4.58 - [facility] 5.54 [facility] x10(6)/[facility] LABORATORY Hemoglobin 10.9 (L) 13.7 - [facility] 16.5 g/dL [facility] LABORATORY Hematocrit 33.1 (L) 40.5 - [facility] 48.5 % [facility] LABORATORY MCV 88.7 82.9 - [facility] 93[facility]1 [facility] LABORATORY MCH 29.2 27.5 - [facility] 32.1 pg [facility] LABORATORY MCHC 32.9 32.0 - [facility] 35.7 g/dL [facility] LABORATORY Platelets 145 145 - 357 [facility] x10(3)/[facility] LABORATORY RDWSD 46.3 (H) 36.0 - [facility] 45.0 [facility] LABORATORY RDWCV 14.3 (H) 11.4 - [facility] 13.8 % [facility] LABORATORY MPV 10.3 7.6 - 12.9 [facility] LABORATORY nRBC % Auto 0.0 % [facility] LABORATORY nRBC Abs Auto 0.000 0.000 - [facility] 0.000 [facility] x10(3)/[facility] LABORATORY Specimen Anatomical Collection Method Collection Time Receive d Time (Source) Location / / Volume Laterality Blood 09/28/2021 2:15 AM 2 2:27 EDT AM EDT Resulting Agency Comment Spec In Lab Davie CONTRERAS HEMATOLOGY ORDERABLES Performing Organization Address City/State/[place] [address] (ABNORMAL) Basic Metabolic Panel (non-fasting) (09/28/2021 2:15 AM EDT) P athologist Signature Glucose Lvl 193 65 - 199 [facility] mg/dL [facility] LABORATORY Comment: Diabetes: >=200 mg/dL plus symp toms BUN 13 10 - 20 mg/dL [facility] LABORATORY Creatinine 0.73 (L) 0.80 - 1.50 mg/dL [facility] LABORATORY Sodium 139 135 - 145 mmol/L [...] Chloride 108 (H) 98 - 107 mmol/L [facility] LABORATORY CO2 21 (L) 22 - 31 mmol/L [facility] LABORATORY Anion Gap 10 5 - 15 mmol/L [facility] LABORATORY Calcium 7.5 (L) 8.5 - 10.5 mg/dL [facility] LABORATORY Estimated GFR 95 >=60 mL/min/1.73 m?? [facility] LABORATORY Comment: This patient's estimated [...] Organization Address City/State/[place] [address] (ABNORMAL) Troponin (09/28/2021 2:15 AM EDT) athologist Signature Troponin-T 0.31 (H) 0.00 - [facility] 0.00 ng/mL [facility] LABORATORY Comment: The 99th percentile for Troponin T is le ss than 0.01 ng/mL, any detectable cTnT concentration using this assay should be considered elevated. According to the third universal definit ion of myocardial infarction the following criteria with a clinical prese ntation consistent with acute myocardial ischemia meets the diagnosis for a myocardial infarction (MO). Detection of a rise and/or fall of [...] additional sample may be indicated. Reference: Third [place] Definition of Myocardial Infarction. Journal of the [place] [employer] 2012;60:1581-98 Specimen Anatomical Collection Method Collection Time Receive d Time (Source) Location / / Volume Laterality Blood 09/28/2021 2:15 AM 2 2:27 EDT AM EDT Resulting Agency Comment Spec In Lab Abdon Dawson MD CHEMISTRY ORDERABLES Performing Organization Address City/State/ZIP Code Phon e Number [address] POCT Glucose (09/28/2021 2:12 AM EDT) athologist Signature POC Glucose 183 65 - 199 [facility]dL [facility] LABORATORY Comment: Supplemental ranges: <140 mg/dL before meals <180 mg/dL all other times of the day Specimen Anatomical Collection Method Collection Time Receive d Time (Source) Location / / Volume Laterality Blood 09/28/2021 2:12 AM 2 2:12 EDT AM EDT Abdon Dawson MD POINT OF CARE TEST ORDERABLE S Performing Organization Address City/[facility]/ZIP Code Phon e Number [address] POCT Glucose (09/28/2021 12:13 AM EDT) athologist Signature POC Glucose 182 65 - 199 [place] mg/dL [facility] LABORATORY Comment: Supplemental ranges: <140 mg/dL before meals <180 mg/dL all other times of the day Specimen Anatomical Collection Method Collection Time Receive d Time (Source) Location / / Volume Laterality Blood 09/28/2021 12:13 09/28/2021 AM EDT 12:13 AM EDT Abdon Dawson MD POINT OF CARE TEST ORDERABLE S Performing Organization Address City/State/ZIP Code Phon e Number [address] POCT Glucose (09/27/2021 10:07 PM EDT) athologist Signature POC Glucose 184 65 - 199 [place]RE[place] mg/dL [facility] LABORATORY Comment: Supplemental ranges: <140 mg/dL before meals <180 mg/dL all other times of the day Specimen Anatomical Collection Method Collection Time Receive d Time (Source) Location / / Volume Laterality Blood 09/27/2021 10:07 09/27/2021 PM EDT 10:07 PM EDT Abdon Dawson MD POINT OF CARE TEST ORDERABLE S Performing Organization Address City/State/[place] [address] (ABNORMAL) Hemoglobin (09/27/2021 9:30 PM EDT) athologist Signature Hemoglobin 11.2 (L) 13.7 - [facility] 16.5 g/dL [facility] LABORATORY Specimen Anatomical Collection Method Collection Time Receive d Time (Source) Location / / Volume Laterality Blood 09/27/2021 9:30 PM 9:34 EDT PM EDT Resulting Agency Comment Spec In Lab Abdon Dawson MD HEMATOLOGY ORDERABLES Performing Organization Address City/State/ZIP Code Phon e Number [address] Potassium (09/27/2021 9:30 PM EDT) athologist Signature Potassium 4.2 3.5 - 5.0 [facility] mmol/L [facility] LABORATORY Comment: Please note: [...] Organization Address City/State/[place] [address] (ABNORMAL) BLOOD GAS 2 ARTERIAL (09/27/2021 7:45 PM EDT) Analysis Performed At Patho logist Time Signature pH Art 7.31 (L) 7.35 - [facility] 7.45 [facility] LABORATORY pCO2 Art 37 35 - 45 [facility] LABORATORY pO2 Art 117 (H) 85 - 104 [facility] LABORATORY HCO3 Art 18.3 (L) 20.0 - [facility] 26.0 [facility] mmol/[facility] LABORATORY BE Art -7.9 (L) -3.0 - 3.0 [facility] mmol/L [facility] LABORATORY Hgb Blood Gas 12.7 (L) 13.7 - [facility] 16.5 g/dL [facility] O2HB Art 96.8 94.0 - [facility] 97.0 % [facility] LABORATORY COHB Art 0.4 % [facility] LABORATORY Comment: Nonsmokers: 0.5-1.5% COHB Smokers: Variable, but usually less than 10% Toxic: 20-30% COHB Lethal: Greater than 60% COHB METHB Art 0.7 <=1.5 % [facility] LABORATORY Na Whole Blood 140 135 - 145 mmol/L [facility] LABORATORY K Whole Blood 3.9 3.5 - 5.0 mmol/L [facility] LABORATORY Comment: Please note: Patients with WBC >100,000 may have falsely elevated Potassium levels. Contact the Clinical Chemistry L aboratory if there are any questions. ICa Whole Blood 1.10 (L) 1.15 - 1.33 mmol/L [facility] LABORATORY Comment: Note: ??Total bilirubin higher than 20 m g/dL may lead to falsely low ionized calcium. CL Whole Blood 108 (H) 98 - 107 mmol/L [facility] LABORATORY Gluc Whole Bld 173 65 - 199 mg/dL [facility] LABORATORY Comment: Diabetes: >=200 mg/dL plus symp toms. Lactate WB 1.7 0.5 - 2.2 mmol/L [facility] LABORATORY FIO2 Art 40 % [facility] LABORATORY PF Ratio Art 292 [facility] LABORATORY Specimen Anatomical Collection Method Collection Time Receive d Time (Source) Location / / Volume Laterality Blood 09/27/2021 7:45 PM 2 7:45 EDT PM EDT Abdon Dawson MD CHEMISTRY ORDERABLES Performing Organization Address City/State/[place] [address] POCT Glucose (09/27/2021 7:19 PM EDT) P athologist Signature POC Glucose 149 65 - 199 [facility] mg/dL [facility] LABORATORY Comment: Supplemental ranges: <140 mg/dL before meals <180 mg/dL all other times of the day Specimen Anatomical Collection Method Collection Time Receive d Time (Source) Location / / Volume Laterality Blood 09/27/2021 7:19 PM 2 7:19 EDT PM EDT Abdon Dawson MD POINT OF CARE TEST ORDERABLE S Performing Organization Address City/State/[place] [address] XR Chest One View [...] who have questions please contact the health healthcare project manager that requested your imaging first. ? [...] ho have questions please contact the health healthcare project manager that requested your imaging first. Abdon Dawson MD IMG DX ORDERABLES (ABNORMAL) BLOOD GAS 2 ARTERIAL (09/27/2021 5:58 PM EDT) athologist Signature pH Art 7.29 7.35 - [facility] (Critical) 7.45 [facility] LABORATORY Comment: Noted by teacher instrumental. pCO2 Art 44 35 - 45 mmHg [facility] LABORATORY pO2 Art 462 (H) 85 - 104 mmHg [facility] LABORATORY HCO3 Art 20.7 20.0 - 26.0 mmol/L [facility] LABORATORY BE Art -5.9 (L) -3.0 - 3.0 mmol/L [facility] LABORATORY Hgb Blood Gas 12.9 (L) 13.7 - 16.5 g/dL [facility] LABORATORY O2HB Art 98.5 (H) 94.0 - 97.0 % [facility] LABORATORY COHB Art 0.4 % [facility] LABORATORY Comment: Nonsmokers: 0.5-1.5% COHB Smokers: Variable, but usually less than 10% Toxic: 20-30% COHB Lethal: Greater than 60% COHB METHB Art 0.7 <=1.5 % [facility]ORATORY Na Whole Blood 138 135 - 145 mmol/L [facility] LABORATORY K Whole Blood 3.9 3.5 - 5.0 mmol/L [facility] LABORATORY Comment: Please note: Patients with WBC >100,000 may have falsely elevated Potassium levels. Contact the Clinical Chemistry L aboratory if there are any questions. ICa Whole Blood 1.15 1.15 - 1.33 mmol/L [facility] LABORATORY Comment: Note: ??Total bilirubin higher than 20 m g/dL may lead to falsely low ionized calcium. CL Whole Blood 105 98 - 107 mmol/L [facility] LABORATORY Gluc Whole Bld 166 65 - 199 mg/dL [facility] LABORATORY Comment: Diabetes: >=200 mg/dL plus symp toms. Lactate WB 1.6 0.5 - 2.2 mmol/L [facility] LABORATORY FIO2 Art 100 % [facility] LABORATORY PF Ratio Art 462 [facility] LABORATORY Specimen Anatomical Collection Method Collection Time Receive d Time (Source) Location / / Volume Laterality Blood 09/27/2021 5:58 PM 2 5:58 EDT PM EDT Abdon Dawson MD CHEMISTRY ORDERABLES Performing Organization Address City/State/[place] [address] EKG 12 Lead (09/27/2021 5:47 PM EDT) Component Value Ref Range Test Analysis Performed Pathologis t Method Time At Signature Ventricular rate 80 BPM MUSE SYSTEM Atrial Rate 80 BPM MUSE SYSTEM P-R Interval 298 ms MUSE SYSTEM QRS Duration 148 ms MUSE SYSTEM Q-T Interval 482 ms MUSE SYSTEM QTC Calculated 555 ms MUSE SYSTEM (Bezet) Calculated P [place] 102 degrees MUSE SYSTEM Calculated R [place] 102 degrees MUSE SYSTEM Calculated T [place] -46 degrees MUSE SYSTEM INTERPRETATION Suspect arm [...] (ABNORMAL) Thrombin time (09/27/2021 4:37 PM EDT) P athologist Signature Thrombin Time 19 (H) 10 - 17 [facility] LABORATORY Comment: OR Result called [...] MD HEMATOLOGY ORDERABLES Performing Organization Address [facility] Phon e Number [address] Fibrinogen (09/27/2021 4:37 PM EDT) P athologist Signature Fibrinogen 247 200 - 393 [facility] mg/dL [facility] LABORATORY Comment: OR Result called [...] MD HEMATOLOGY ORDERABLES Performing Organization Address [facility] [place] [address] APTT (09/27/2021 4:37 PM EDT) P athologist Signature PTT 33 25 - 37 sec [facility] LABORATORY Comment: OR Result called [...] Castanon MD HEMATOLOGY ORDERABLES Performing Organization Address City/[facility]/[place] [address] (ABNORMAL) Prothrombin Time (09/27/2021 4:37 PM EDT) P athologist Signature PT 17.8 (H) 9.4 - 12.5 [facility] LABORATORY Comment: OR Result called by ?? PARSAD OR Result s read back by: ? Lyndsay Richard at 2021-09-27 16:57:25 INR 1.6 [facility] LABORATORY Comment: OR Result called by [...] Castanon MD HEMATOLOGY ORDERABLES Performing Organization Address City/[facility]/[place] [address] (ABNORMAL) Hemogram (09/27/2021 4:37 PM EDT) P athologist Signature WBC 17.4 (H) 4.0 - 9.5 [facility] x10(3)/[facility] LABORATORY RBC 3.34 (L) 4.58 [facility] x10(6)/[facility] LABORATORY Hemoglobin 9.6 (L) 13.7 - [facility] 16.5 g/dL [facility] LABORATORY Hematocrit 29.5 (L) 40.5 - [facility] 48.5 % [facility] LABORATORY Comment: This result has been called to NAYLA BARR by Heladio Ordonez on 09 27 2021 at 1648, and has been read back. MCV 88.3 82.9 - 93.1 fL [facility] LABORATORY MCH 28.7 27.5 - 32.1 pg [facility] LABORATORY MCHC 32.5 32.0 - 35.7 g/dL [facility] K [facility] LABORATORY Platelets 152 145 - 357 x10(3)/[facility] LABORATORY RDWSD 44.7 36.0 - 45.0 [facility] LABORATORY RDWCV 13.9 (H) 11.4 - 13.8 % [facility] LABORATORY MPV 10.3 7.6 - 12.9 [facility] LABORATORY nRBC % Auto 0.0 % [facility] LABORATORY nRBC Abs Auto 0.000 0.000 - 0.000 x10(3)/[facility] LABORATORY Specimen Anatomical Collection Method Collection Time Receive d Time (Source) Location / / Volume Laterality Blood 09/27/2021 4:37 PM 2 4:43 EDT PM EDT Resulting Agency Comment Spec In Lab Henny Castanon MD HEMATOLOGY ORDERABLES Performing Organization Address City/State/[place] [address] (ABNORMAL) BLOOD GAS 2 ARTERIAL (09/27/2021 4:33 PM EDT) Analysis Performed At Patho logist Time Signature pH Art 7.36 7.35 - [facility] 7.45 [facility] LABORATORY pCO2 Art 41 35 - 45 [facility] mmHg [facility] LABORATORY pO2 Art 165 (H) 85 - 104 [facility] mmHg [facility] LABORATORY HCO3 Art 22.6 20.0 - [facility] 26.0 [facility] mmol/L [facility] LABORATORY BE Art -2.9 -3.0 - 3.0 [facility] mmol/L [facility] LABORATORY Hgb Blood Gas 10.3 (L) 13.7 - [facility] 16.5 g/dL [facility] LABORATORY O2HB Art 98.0 (H) 94.0 - [facility] 97.0 % [facility] LABORATORY COHB Art 0.3 % [facility] LABORATORY Comment: Nonsmokers: 0.5-1.5% COHB Smokers: Variable, but usually less than 10% Toxic: 20-30% COHB Lethal: Greater than 60% COHB METHB Art 0.3 <=1.5 % [facility] LABORATORY Na Whole Blood 134 (L) 135 - 145 mmol/L [facility] LABORATORY K Whole Blood 3.8 3.5 - 5.0 mmol/L [facility] LABORATORY Comment: Please note: Patients with WBC >100,000 may have falsely elevated Potassium levels. Contact the Clinical Chemistry L aboratory if there are any questions. ICa Whole Blood 1.12 (L) 1.15 - 1.33 mmol/L [facility] LABORATORY Comment: Note: ??Total bilirubin higher than 20 m g/dL may lead to falsely low ionized calcium. CL Whole Blood 108 (H) 98 - 107 mmol/L [facility] LABORATORY Gluc Whole Bld 155 65 - 199 mg/dL [facility] LABORATORY Comment: Diabetes: >=200 mg/dL plus symp toms. Lactate WB 1.4 0.5 - 2.2 mmol/L [facility] LABORATORY Specimen Anatomical Collection Method Collection Time Receive d Time (Source) Location / / Volume Laterality Blood 09/27/2021 4:33 PM 4:33 EDT PM EDT Abdon Dawson MD CHEMISTRY ORDERABLES Performing Organization Address City/State/[place] [address] Prepare cryoprecipitate (09/27/2021 4:20 PM EDT) athologist Signature Dispensed? Yes [facility] LABORATORY Specimen Anatomical Collection Method Collection Time Receive d Time (Source) Location / / Volume Laterality Blood 09/27/2021 4:20 PM 2 4:19 EDT PM EDT Abdon Dawson MD BLOOD BANK ORDERABLES Performing Organization Address City/State/[place] [address] (ABNORMAL) BLOOD GAS 2 ARTERIAL (09/27/2021 3:48 PM EDT) Analysis Performed At Patho logist Time Signature pH Art 7.39 7.35 - [facility] 7.45 [facility] LABORATORY pCO2 Art 38 35 - 45 [facility] mmHg [facility] LABORATORY pO2 Art 482 (H) 85 - 104 [facility] LABORATORY HCO3 Art 22.6 20.0 - [facility] 26.0 [facility] mmol/[facility] LABORATORY BE Art -2.3 -3.0 - 3.0 [facility] mmol/L [facility] LABORATORY Hgb Blood Gas 10.0 (L) 13.7 - [facility] 16.5 g/dL [facility] O2HB Art 98.9 (H) 94.0 - [facility] 97.0 % [facility] LABORATORY COHB Art 0.3 % [facility] LABORATORY Comment: Nonsmokers: 0.5-1.5% COHB Smokers: Variable, but usually less than 10% Toxic: 20-30% COHB Lethal: Greater than 60% COHB METHB Art 0.3 <=1.5 % [facility]ORATORY Na Whole Blood 133 (L) 135 - 145 mmol/L [facility] LABORATORY K Whole Blood 4.2 3.5 - 5.0 mmol/L [facility] LABORATORY Comment: Please note: Patients with WBC >100,000 may have falsely elevated Potassium levels. Contact the Clinical Chemistry L aboratory if there are any questions. ICa Whole Blood 0.99 (L) 1.15 - 1.33 mmol/L [facility] LABORATORY Comment: Note: ??Total bilirubin higher than 20 m g/dL may lead to falsely low ionized calcium. CL Whole Blood 105 98 - 107 mmol/L [facility] LABORATORY Gluc Whole Bld 144 65 - 199 mg/dL [facility] LABORATORY Comment: Diabetes: >=200 mg/dL plus symp toms. Lactate WB 1.4 0.5 - 2.2 mmol/L [facility] LABORATORY Specimen Anatomical Collection Method Collection Time Receive d Time (Source) Location / / Volume Laterality Blood 09/27/2021 3:48 PM 2 3:48 EDT PM EDT Abdon Dawson MD CHEMISTRY ORDERABLES Performing Organization Address City/State/[place] [address] Platelet count (09/27/2021 3:40 PM EDT) athologist Signature Platelets 164 145 - 357 [facility] x10(3)/[facility] LABORATORY Plat Immature 3.8 0.0 - 7.4 [facility] % % [facility] LABORATORY Comment: Limitation of the Immature Platelet Frac tion (IPF)-May be less reliable when the platelet count is less than 19o107/u L due to statistical imprecision. The IPF [...] in a decreased state of production. References: [employer] The Clinical Value of the Immature Platelet Fraction (IPF) in Cell Recovery Document Number [id number] 07/2010 [employer] The Role of the Imm ature Platelet Fraction (IPF) in the Differential Diagnosis of Thrombocytopen ia, Document [id number] V05/01/22 P014 Specimen Anatomical Collection Method Collection Time Receive d Time (Source) Location / / Volume Laterality Blood 09/27/2021 3:40 PM 2 3:55 EDT PM EDT Resulting Agency Comment Spec In Lab Abdon Dawson MD HEMATOLOGY ORDERABLES Performing Organization Address City/[facility]/[place] [address] (ABNORMAL) Hemoglobin (09/27/2021 3:40 PM EDT) athologist Signature Hemoglobin 9.3 (L) 13.7 - 16.5 [facility] AUDREY g/dL [facility] LABORATORY Comment: This result has [...] Dawson MD HEMATOLOGY ORDERABLES Performing Organization Address City/[facility]/[place] [address] Fibrinogen (09/27/2021 3:40 PM EDT) athologist Signature Fibrinogen 235 200 - 393 MAIR[place] AUDREY mg/dL [facility] LABORATORY Comment: OR Result called [...] Dawson MD HEMATOLOGY ORDERABLES Performing Organization Address City/[facility]/[place] [address] (ABNORMAL) Hematocrit (09/27/2021 3:40 PM EDT) athologist Signature Hematocrit 27.7 (L) 40.5 - [facility] AUDRE[facility] 48.5 % [facility] LABORATORY Comment: This result has [...] Organization Address City/State/[place] [address] (ABNORMAL) BLOOD GAS 2 ARTERIAL (09/27/2021 3:16 PM EDT) Analysis Performed At Patho logist Time Signature pH Art 7.41 7.35 - [facility] 7.45 [facility] LABORATORY pCO2 Art 36 35 - 45 [facility] mmHg [facility] LABORATORY pO2 Art 525 (H) 85 - 104 [facility] LABORATORY HCO3 Art 22.5 20.0 - [facility] 26.0 [facility] mmol/L [facility] LABORATORY BE Art -2.1 -3.0 - 3.0 [facility] mmol/L [facility] LABORATORY Hgb Blood Gas 10.1 (L) 13.7 - [facility] 16.5 g/dL [facility] O2HB Art 98.8 (H) 94.0 - [facility] 97.0 % [facility] LABORATORY COHB Art 0.3 % [facility] LABORATORY Comment: Nonsmokers: 0.5-1.5% COHB Smokers: Variable, but usually less than 10% Toxic: 20-30% COHB Lethal: Greater than 60% COHB METHB Art 0.3 <=1.5 % [facility] LABORATORY Na Whole Blood 132 (L) 135 - 145 mmol/L [facility] LABORATORY K Whole Blood 4.0 3.5 - 5.0 mmol/L [facility] LABORATORY Comment: Please note: Patients with WBC >100,000 may have falsely elevated Potassium levels. Contact the Clinical Chemistry L aboratory if there are any questions. ICa Whole Blood 1.00 (L) 1.15 - 1.33 mmol/L [facility] LABORATORY Comment: Note: ??Total bilirubin higher than 20 m g/dL may lead to falsely low ionized calcium. CL Whole Blood 105 98 - 107 mmol/L [facility] LABORATORY Gluc Whole Bld 141 65 - 199 mg/dL [facility] LABORATORY Comment: Diabetes: >=200 mg/dL plus symp toms. Lactate WB 1.4 0.5 - 2.2 mmol/L [facility] LABORATORY Specimen Anatomical Collection Method Collection Time Receive d Time (Source) Location / / Volume Laterality Blood 09/27/2021 3:16 PM 2 3:16 EDT PM EDT Abdon Dawson MD CHEMISTRY ORDERABLES Performing Organization Address City/State/[place] [address] (ABNORMAL) BLOOD GAS 2 ARTERIAL (09/27/2021 2:46 PM EDT) Analysis Performed At Patho logist Time Signature pH Art 7.36 7.35 - [facility] 7.45 [facility] LABORATORY pCO2 Art 44 35 - 45 [facility] LABORATORY pO2 Art 554 (H) 85 - 104 [facility] LABORATORY HCO3 Art 24.6 20.0 - [facility] 26.0 [facility] mmol/L [facility] LABORATORY BE Art -0.8 -3.0 - 3.0 [facility] mmol/L [facility] LABORATORY Hgb Blood Gas 9.6 (L) 13.7 - [facility] 16.5 g/dL [facility] LABORATORY O2HB Art 99.0 (H) 94.0 - [facility] 97.0 % [facility] LABORATORY COHB Art 0.3 % [facility] LABORATORY Comment: Nonsmokers: 0.5-1.5% COHB Smokers: Variable, but usually less than 10% Toxic: 20-30% COHB Lethal: Greater than 60% COHB METHB Art 0.3 <=1.5 % [facility]ORAT[facility] Na Whole Blood 133 (L) 135 - 145 mmol/L [facility] LABORATORY K Whole Blood 4.2 3.5 - 5.0 mmol/L [facility] LABORATORY Comment: Please note: Patients with WBC >100,000 may have falsely elevated Potassium levels. Contact the Clinical Chemistry L aboratory if there are any questions. ICa Whole Blood 0.97 (L) 1.15 - 1.33 mmol/L [facility] LABORATORY Comment: Note: ??Total bilirubin higher than 20 m g/dL may lead to falsely low ionized calcium. CL Whole Blood 105 98 - 107 mmol/L [facility] LABORATORY Gluc Whole Bld 128 65 - 199 mg/dL [facility] LABORATORY Comment: Diabetes: >=200 mg/dL plus symp toms. Lactate WB 1.1 0.5 - 2.2 mmol/L [facility] LABORATORY Specimen Anatomical Collection Method Collection Time Receive d Time (Source) Location / / Volume Laterality Blood 09/27/2021 2:46 PM 2 2:46 EDT PM EDT Abdon Dawson MD CHEMISTRY ORDERABLES Performing Organization Address City/State/[place] [address] BLOOD GAS 2 ARTERIAL (09/27/2021 1:47 PM EDT) athologist Signature pH Art 7.37 7.35 - [facility] 7.45 [facility] LABORATORY pCO2 Art 44 35 - 45 [facility] mmHg [facility] LABORATORY pO2 Art 102 85 - 104 [facility] LABORATORY HCO3 Art 25.0 20.0 - [facility] 26.0 [facility] mmol/L [facility] LABORATORY BE Art -0.3 -3.0 - 3.0 [facility] mmol/L [facility] LABORATORY Hgb Blood Gas 13.7 13.7 - [facility] 16.5 g/dL [facility] LABORATORY O2HB Art 96.5 94.0 - [facility] 97.0 % [facility] LABORATORY COHB Art 0.7 % [facility] LABORATORY Comment: Nonsmokers: 0.5-1.5% COHB Smokers: Variable, but usually less than 10% Toxic: 20-30% COHB Lethal: Greater than 60% COHB METHB Art 0.3 <=1.5 % [facility] LABORATORY Na Whole Blood 139 135 - 145 mmol/L [facility] LABORATORY K Whole Blood 3.6 3.5 - 5.0 mmol/L [facility] Comment: Please note: Patients with WBC >100,000 may have falsely elevated Potassium levels. Contact the Clinical Chemistry L aboratory if there are any questions. ICa Whole Blood 1.15 1.15 - 1.33 mmol/L [facility] Comment: Note: ??Total bilirubin higher than 20 m g/dL may lead to falsely low ionized calcium. CL Whole Blood 105 98 - 107 mmol/L [facility] Gluc Whole Bld 116 65 - 199 mg/dL [facility] Comment: Diabetes: >=200 mg/dL plus symp toms. Lactate WB 1.1 0.5 - 2.2 mmol/L [facility] Specimen Anatomical Collection Method Collection Time Receive d Time (Source) Location / / Volume Laterality Blood 09/27/2021 1:47 PM 2 1:47 EDT PM EDT Abdon Dawson MD CHEMISTRY ORDERABLES Performing Organization Address City/State/[place] [address] Transesophageal Echo/OR (09/27/2021 12:56 PM EDT) Anatomical Region Laterality Modality Cardiac Other Specimen (Source) Anatomical Collection Method Collection Time Re ceived Time Location / / Volume Laterality 09/27/2021 12:56 PM EDT Narrative 09/27/2021 4:32 PM EDT ? Version: 1 Name: [address] ?Study Date: 09/27/2021, 12: 56 PM ?Patient Location: [facility] : 1945 (MM/DD/YYYY) ? Age: 76 Years Gender: Male Ordering Physician: [id number]^KALLIE^ABDON^P^^^^^EPIC^^^^PROV ID Referring Physician: [id number]^UNKNOWN^^^^^^ ^EPIC^^^^PROVID ? Conclusions Intraoperative GIUSEPPE performed to [...] Date: 09/09, 12: 56 PM Patient Location: [facility] : 1945 (MM/DD/YYYY) Age: 76 Years Gender: Male Ordering Physician: [id number]^KALLIE^ABDON^Murali^^^^^EPIC^^^^PROV ID Referring Physician: [id number]^UNKNOWN^^^^^^ ^EPIC^^^^PROVID Conclusions Intraoperative GIUSEPPE performed to confirm [...] ORDERABLES Prepare RBC (09/27/2021 12:05 PM EDT) P athologist Signature Dispensed? Yes [facility] Specimen Anatomical Collection Method Collection Time Receive d Time (Source) Location / / Volume Laterality Blood 09/27/2021 12:05 09/27/2021 PM EDT 12:02 PM EDT Abdon Dawson MD BLOOD BANK ORDERABLES Performing Organization Address City/State/ZIP Code Phon e Number [address] POCT Glucose (09/27/2021 11:37 AM EDT) athologist Signature POC Glucose 124 65 - 199 [facility] mg/dL [facility] Comment: Supplemental ranges: <140 mg/dL before meals <180 mg/dL all other times of the day Specimen Anatomical Collection Method Collection Time Receive d Time (Source) Location / / Volume Laterality Blood 09/27/2021 11:37 09/27/2021 AM EDT 11:37 AM EDT Abdon Dawson MD POINT OF CARE TEST ORDERABLE S Performing Organization Address City/[facility]/[place] [address] SCAN DOC: LAB (09/27/2021 [...] Fransisca Hernandez, TY)1710 (Given - Provider: Fransisca Hernandez, TY)2325 (Given - Provider: Tatiana Lopez RN) 0527 [...] 0845 (Given - Provider: Nino Hernandez RN) 09 (Given - Provider: Marilou Graff RN) 0807 (Given - Provider: Esthela Vu RN) 81 mg, Oral, DAILY, First dose on Thu at 1830, Until Discontinued, Routine benzonatate (Tessalon) capsule 200 mg 1857 (Given - Pr ovider: Fransisca Hernandez RN) 09 (Given - Provider: Marilou Graff RN)140 (Given - Provider: Marilou Graff RN)204 (Given - Provider: Tatiana Lopez RN) 0807 (Given - Provider: Esthela Vu RN)1411 (Given - Provider: Esthela Vu RN) 200 mg, Oral, 3 TIMES DAILY, First dose on Thu10/01/21 at 1930, Until Discontinued, DO NOT CRUSH OR OPEN, Routine budesonide-formoteroL (Symbicort) 160-4.5 mcg/actuatio n inhaler 2 Inhalation 0845 (Given - Provider: Frnasisca Hernandez RN)2014 (Given - Provider: Tatiana Lopez [...] dose, First dose (after last modification) on Izabel 10/03/21 at 1600, Routine furosemide (Lasix) (10 mg/mL) [...] mg 0845 (Given - Provid er: Fransisca Heranndez RN)1630 (Given - Provider: Fransisca Hernandez RN) 0729 (Given - Provider: Marilou Graff RN)1639 (Given - Provider: Marilou Graff RN) 0807 (Given - Provider: Esthela Vu RN)1611 (Given - Provider: Esthela Vu RN) 300 mg, Oral, 2 TIMES DAILY BEFORE MEALS , First dose on 09/28/21 at 0730, Until Discontinued, Routine guaiFENesin ER [...] Marilou Graff, RN)1129 (Given - Provider: Marilou Graff, RN)1639 (Given - Provider: Mariluo Graff, RN)204 (Given - Provider: Tatiana Lopez RN) [...] RN) 0527 (Given - Provider: Tatiana gustafson, TY)1405 (Given - Provider: Marilou Graff RN)2102 (Given [...] Hernandez RN) 0902 (Given - Provider: Marilou Graff, TY) [...] - Provider: Esthela bingham RN - Comment: Radames Be) 0-5,000 Units/hr (0-100 mL/hr), Intraven ous, [...] 0815, Until Thu10/03/21 at 1914, Low blood sugar, For BG [...] 2323, Until Thu10/03/21 at 1914, Pain, for moderate pain (4-6), [...] on Thu09/30/21 at 0815, Until Thu10/03/21 at 1914
For BG 50-70 mg/dL: Oral [...] episode. & nbsp; For persistent hypoglycemia, con [place] river longer-acting treatment for the duration of the [...]
Routine documented in this encounter Care Teams Pump Press Operator Relationship Specialty Start Date End Date Jesusita Law MD PCP - General Family Medicine 09/03/[address] [place] [address] documented as of this encounter
--- OUTSIDE RECORDS SUMMARY | 2021-11-22 10:40 | XMS_ITS | Encounter Summary ---
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 Procedures PRO CABG, ARTERIAL, SINGLE PRO CABG, ARTERY-VEIN, THREE PRO ENDOSCOPY W/VIDEO-ASST VEIN HARVEST, CABG @CABG, USING ARTERIAL GRAFT;SINGLE ARTERIAL GRAFT (WRVU 33.75) @CABG; 3 VENOUS GRAFTS & ARTERIAL GRAFT (WRVU 10.49) [facility] DR ALMEIDA HARVEST VEIN(S) FOR CABG (WRV U 0.31) [place] [address] Referral ID Status Reason Start Date Expiration Date Visits Requ ested Visits Authorized [id number] 1 1 Encounter Details Date Type Department Care Team Description 09/27/2021 Anesthesia Event Main Operating Room Rodney Nunez MD [facility] DRIVE [facility] [place]ulugeta [place] [address] [place] [address] [phone] (Wo rk) Anesthesia Record Procedure Summary Procedure Name Responsible Anesthesia Start Anesthesia Stop Time Anesthesiologist Time @CABG, USING Henny Castanon MD 09/27/21 1245 09/27/21 1490 ARTERIAL GRAFT;SINGLE ARTERIAL GRAFT (WRVU 33.75) (N/A [...] vein (top of hand), left; Ioana Isabel, toyu-kdp-olrtil catheter RN system; 18 gauge; ioana RN Incision 09/27/21; 1349; anterior, 09/27/21 1349 by midline; chest; vertical Lyndsay Richard RN Incision 09/27/21; 1349; Right, 09/27/21 1349 by medial; leg; Lyndsay Richard RN non-laparascopic puncture ETT Mask Ventilation: Easy 09/27/21 1304 by 09/27/21 2000 by (1); ETT Type: Cuffed; ETT LowHenny MD [facility], Size: 7.5 mm; Mac Blade: [...] Bulb; 7 Lyndsay Richard RN Rivera Agus, Ugandan TY Back Chest Tube 09/27/21; 1631; Right; [...] Procedure Summary Date: 09/27/21 Room / Location: [facility] OR [address] [place] [address] MAIN OR Anesthesia Start: 1245 Anesthesia Stop: Procedures: @CABG, USING ARTERIAL GRAFT;SINGLE ARTERIAL GRAFT (WRVU 33.75) (N/A Chest) @CABG; 3 VENOUS GRAFTS & ARTERIAL GRAFT (WRVU 10.49) (N/A Chest) ENDOSCOPIC HARVEST VEIN(S) FOR CABG (WRVU 0.31) (N/A Leg) Diagnosis: 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
--- OUTSIDE RECORDS SUMMARY | 2021-11-22 10:40 | XMS_ITS | Encounter Summary ---
:1945 Author Organization [facility] Address [facility] [place] [address] Care Team Providers Name Role Phone Jesusita Law MD Primary Care Provider [phone] Reason for Visit Auth/Cert Specialty Diagnoses / Procedures Referred By Contact Refer red To Contact Diagnoses Coronary artery disease involving enterprise heart with unstable angina pectoris, unspecified vessel or lesion type cad Abdon Dawson MD [facility] Procedures PRO CABG, ARTERIAL, SINGLE PRO CABG, ARTERY-VEIN, THREE PRO ENDOSCOPY W/VIDEO-ASST VEIN HARVEST, CABG @CABG, USING ARTERIAL GRAFT;SINGLE ARTERIAL GRAFT (WRVU 33.75) @CABG; 3 VENOUS GRAFTS & ARTERIAL GRAFT (WRVU 10.49) [facility] DR ALMEIDA HARVEST VEIN(S) FOR CABG (WRV U 0.31) [place] [address] Referral ID Status Reason Start Date Expiration Date Visits Requ ested Visits Authorized [id number] 1 1 Encounter Details Date Type Department Care Team Description 09/24/2021 Clinical Support Same Day at [facility] Coronary artery disease [facility] involving enterprise heart [place] [address] pectoris, unspecified [phone] vessel or lesio n type Social History [...] bring CPAP on DOS. Note to EP electrolog operator re: pacemaker documented in this encounter Plan of Treatment Not on filedocumented as of this encounter Procedures Procedure Name Priority Date/Time Associated Diagnosis Comme nts EKG 12-LEAD Routine 09/24/2021 1:08 PM Coronary artery Result s for this EDT disease involving procedure are in enterprise heart with the result s unstable angina section. pectoris, unspecified vessel or lesion type documented in this encounter Results EKG 12 Lead (09/24/2021 1:08 PM EDT) [facility] Method Time Signature Ventricular rate 82 BPM MUSE SYSTEM Atrial Rate 80 BPM MUSE SYSTEM QRS Duration 184 ms MUSE SYSTEM Q-T Interval 464 ms MUSE SYSTEM QTC Calculated 542 ms MUSE SYSTEM (Bezet) Calculated R Geyser -124 degrees MUSE SYSTEM Calculated T Geyser 103 degrees MUSE SYSTEM INTERPRETATION Ventricular-paced rhythm [...] Visit Diagnoses Diagnosis Coronary artery disease involving enterprise heart with unstable angina pectoris, unspecified vessel or lesion type documented in this encounter Care Teams Wetlands Technician Relationship Specialty Start Date End Date Jesusita Law MD PCP - General Family Medicine 09/03/[address] [place] [address] documented as of this encounter
--- OUTSIDE RECORDS SUMMARY | 2021-11-22 10:40 | XMS_ITS | Encounter Summary ---
:1945 Author Organization [facility] [place] [address] Care Team Providers Name Role Phone Jesusita Law MD Primary Care Provider [phone] Reason for Visit Auth/Cert Specialty Diagnoses / Procedures Referred By Contact Refer red To Contact Diagnoses Coronary artery disease involving match-e-be-nash-she-wish band heart with unstable angina pectoris, unspecified vessel or lesion type cad Abdon Dawson MD [facility] Procedures PRO CABG, ARTERIAL, SINGLE PRO CABG, ARTERY-VEIN, THREE PRO ENDOSCOPY W/VIDEO-ASST VEIN HARVEST, CABG @CABG, USING ARTERIAL GRAFT;SINGLE ARTERIAL GRAFT (WRVU 33.75) @CABG; 3 VENOUS GRAFTS & ARTERIAL GRAFT (WRVU 10.49) [facility] DR ALMEIDA HARVEST VEIN(S) FOR CABG (WRV U 0.31) [place] [address] Referral ID Status Reason Start Date Expiration Date Visits Requ ested Visits Authorized [id number] 1 1 Encounter Details Date Type Department Care Team Description 09/24/2021 Laboratory Appointment Lab 3L [facility] [place] [address] Social History Tobacco Use Types Packs/Day [...] on filedocumented in this encounter Care Teams Waste Disposal Attendant Relationship Specialty Start Date End Date Jesusita Law MD PCP - General Family Medicine 09/03/[address] [place] [address] documented as of this encounter
--- OUTSIDE RECORDS SUMMARY | 2021-11-22 10:41 | XMS_ITS | Encounter Summary ---
:1945 Author Organization [facility] [place] [address] Care Team Providers Name Role Phone Judy CONTE MD, Darron Cosby Primary Care Provider [phone] Encounter Details Date Type Department Care Team Description 10/23/2015 Orders Only Cardiology at [facility] [address] ASCVD (arteriosclerotic [facility] Cruz cardiovascular disease) [place], [place] CENTER [address] CARDIOLOGY DEPT. [phone] [place] [id number] Social History Tobacco Use Types Packs/Day Years [...] Laterality Volume Narrative 10/24/2015 1:13 PM EDT ?[facility] ? Cardiac Cathete rization/Intervention Report ? Patient Name: Grammo, Lalo R. ? Procedure Date: 10/24/2015 ? A #: [id number] ? Primary Physician: Rodney, Jomar F ? Case #: [id number] ? File Name: [id number] ? Catheterization Order Number: [id number] ? [facility] ? Final Report [place], [place] ? Patient Name: ? Lalo R. Gra mmo ?ID#: ?[id number] ? : ?1945 ? Procedure Date: ? October 23, 2 016 ? Case #: ? [id number] ? Room: ? 1 ? Case Physician: ? Rich Thompson. ?Start: ?11:00 ?Fellow: ? Neisha jimenez MKathiD. ? Admission: ??10/24/2015 ? Referring Physician: ??Darron tello II MKathiD. ? Procedures: ?* Coronary Angiography ?* Left Heart Catheterization ?* Coronary Stent Insertion ?* Cardioversion / Defibrillatio n During [facility] Maintenance Procedure ? History ?Lalo Guerra is a [...] with: sta ble angina (w/i 42 days). [place] ?Cardiovascular Society angina c lass was III. [...] the equipment ?utilized will be described in t he intervention summary section. 5,000 ?units of heparin [...] of 180 mg ticagrel or given in analyst microbiology lab. Recommend dual ?antiplatelet therapy (DAPT) wit h [...] cardioversion / ?defibrillation during procedure. ? Jomar Stevens, M.D. ? Electronically Signed by: Jomar Stevens, M .D. ? Report Finalized: 10/24/2015 ??13:01 ? Procedure Note Jomar Stevens MD - 10/24/2015 [facility] Cardiac Catheterization/Intervention Re port Patient Name: Lalo Guerra Procedure Date: 10/24/2015 A #: [id number] Primary Physician: Jomar Stevens Case #: [id number] File Name: [id number] Catheterization Order Number: [id number] [facility] Final Report [place], [place] Patient Name: Lalo Guerra ID#: [id number] : 1945 Procedure Date: October 24, 2015 Case #: [id number] Room: 1 Case Physician: Jomar Stevens M.D. Start: 11:00 Fellow: Neisha Martinez M.D. Admission: 0 10/24/2015 Referring Physician: Darron Kim II, M.D. Procedures: * Coronary Angiography * Left Heart Catheterization * Coronary Stent Insertion * Cardioversion / Defibrillation During Plumber Maintenance Procedure History Lalo Guerra is a 70 [...] with: stable eliot na (w/i 42 days). [place] Cardiovascular Society angina class was III. This patient was on beta blockers and calcium yuliet blockers pr ior to the procedure. A SPECT stress test was performed and results w ere Positive and Intermediate Risk ischemia assessment. Technique: A 6 SLFr sheath was inserted in the rig radial artery utilizing the Seldinger technique. The [...] priority for the procedure was Elective. [facility] procedure was Stable angina. [...] stenosis following this interv ention. The final CAYDEN flow was 2. Difficult engagement, RCA almost [...] fibrillation. Recommendations: The patient's medical regimen was ajmes ed as follows: Drug eluting stent(s) implanted in treatment of stab le ischemic heart disease (SIHD). Loading dose of 180 mg ticagrelor given in analyst microbiology lab. Recommend dual antiplatelet therapy (DAPT) with low [...] disease documented in this encounter Care Teams Social Work Specialist Relationship Specialty Start Date End Date Darron Kim II, MD PCP - General 01/01/10 10/23/15 [address] [place] [address] documented as of this encounter
--- OUTSIDE RECORDS SUMMARY | 2021-11-22 10:41 | XMS_ITS | Encounter Summary ---
:1945 Author Organization [facility] [place] [address] Care Team Providers Name Role Phone Jesusita Law MD Primary Care Provider [phone] Encounter Details Date Type Department Care Team Description 09/10/2021 Hospital Encounter Same Day Program at Vinod Munoz Screening for cardiovascular condition; Eveline Alvarado MD Abnormal stress test; [facility] Chest pain, unspecified type [facility] [address] CARDIOLOGY [place], [place] DEPT. [address] [place], [place] [phone] [id number] Social History Tobacco Use Types Packs/Day Years [...] by your doctor, do not take any fbzp-ygi-lxyjogk medicines or herbal preparations without first discussing this with your doctor or pharmacist. There is the possibility of side effects and interactions when these are combined. Follow Up Care Who to call with questions or problems If there are any questions or problems that you think might be related to your cardiac cath or angioplasty, contact the batch or continuous still operator honeycomb decapper by calling [facility] at . Patient InstructionsAnnalise Dimas MD [...] appointments: During 8am-5pm Thursday through Thursday call [phone] and ask to speak to the cardiology clinic triage nurse. All other times call [phone] and ask to speak to the tile fitter honeycomb decapper. Return to work: 1 day Driving: No driving 1 day Diet: Heart healthy, low carbohydrate Follow up Appointments: - Follow up with your Sign Installer and Cardiac Surgery - Your Primary Sign Installer was updated with the results of your [...] from the original note were not included. [facility] [address] [place], [place] [id number] SAME DAY CARDIAC CATHETERIZATION LAB H&P ID: [...] as planned -consent signed Annalise Dimas MD Manager Engagement 09/09/2021 documented in this encounter Miscellaneous Notes Brief Op Note - Vinod Munoz MD - 09/10/2021 11:30 AM EDT Preliminary Cardiac Catheterization Procedure Note: Patient Name: Lalo Guerra : [id number] MR#: [id number] Case Date: 09/10/2021 Quill Fixer: Surgeon(s) and Role: * Vinod Munoz MD [...] Laterality Volume Narrative 09/10/2021 11:54 AM EDT ?[facility] ? Cardiac Cathete rization/Intervention Report ? Patient Name: Charlie Lalo Garcia. ? Procedure Date: 09/10/2021 ? A #: [id number] ? Primary Physician: Tammy, Vinod T ? Case #: [id number] ? File Name: [id number] ? Catheterization Order Number: [id number] ? [facility] ? Final Report [place], [place] ? Patient Name: ? Lalo R. Gra mmo ?ID#: ?[id number] ? : ?1945 ? Procedure Date: ? September 10, 2021 ? Case #: ? [id number] ? Room: ? 6 ? Case Physician: ? Vinod Munoz M.D. ?Start: ?10:44 ?Fellow: ? Bubba Dimas , D.O. ?Admission: ??09/10/2021 ?Annalise villa M.D. ? [...] procedure was Elective. The indication for ?the gold leaf laborer visit is worsening angina. Chest pain [...] Munoz, M.D. ? Electronically Signed by: Vinod Estrada s, M.D. ? Report Finalized: 09/10/2021 ??11:46 ? Report Last Ammended: 09/10/2021 ??14:35 ? Vinod Munoz MD CARDIAC CATH ORDERABLES (ABNORMAL) Point of Care Blood Gas Historical (09/10/2021 10:46 AM EDT) [facility] Method Time Signature POC pH 7.42 7.35 - [facility] 7.45 [facility] POC PCO2 39 35 - 45 [facility] mmHg [facility] POC PO2 96 85 - 104 [facility] LABORATORY POC Base Excess 1.0 -3.0 - 3.0 [facility] K mmol/L [facility] POC HCO3 25.1 20.0 - [facility] 26.0 [facility] mmol/[facility] POC Sodium 140 135 - 145 [facility] mmol/L [facility] POC Potassium 3.8 3.5 - 5.0 [facility] mmol/L [facility] POC Ionized Ca 1.16 1.15 - [facility] 1.33 [facility] mmol/[facility] POC Hematocrit 40.0 40.0 - [facility] 51.0 % [facility] POC Calc Hgb 13.6 (L) 13.7 - [facility] 17.5 g/dL [facility] Comment: The calculation of hemoglobin f rom hematocrit assumes a normal MCHC. POC Bgas Loc CC LAB [facility] Specimen Anatomical Collection Method Collection Time Receive d Time (Source) Location / / Volume Laterality Blood 09/10/2021 10:46 09/12/2021 AM EDT 12:00 PM EDT Vinod Munoz MD CHEMISTRY ORDERABLES Performing Organization Address City/State/[place] [address] (ABNORMAL) Differential, Automated (09/10/2021 10:05 AM EDT) [facility] Method Time Signature Neutrophils % 59.7 % [facility] Neutr Abs (ANC) 4.87 1.70 - [facility] 6.10 [facility] x10(3)/[facility] LABORATORY Lymphocytes % 24.0 % [facility] Lymphocytes Abs 2.0 0.9 - 3.2 [facility] x10(3)/[facility] LABORATORY Monocytes % 12.0 % [facility] Monocyte Abs 1.0 (H) 0.3 - 0.9 [facility] x10(3)/[facility] LABORATORY Eosinophils % 2.8 % [facility] Eosinophils Abs 0.2 0.0 - 0.4 [facility] x10(3)/[facility] LABORATORY Basophils % 1.0 % [facility] Basophils Abs 0.1 0.0 - 0.1 [facility] x10(3)/[facility] LABORATORY Immature Gran % 0.50 % [facility] Comment: Immature granulocytes(IG's)percentage an d absolute count will include metamyelocytes, myelocytes, and promyelo cytes. Blood smears from CBCs yielding IG's will be scanned manually for concor dance. If this scan disagrees with the automated IG or if promyelocytes are not ed, a manual differential will be performed. Anna Gran Abs 0.04 0.00 - 0.04 x10(3)/[facility] Specimen Anatomical Collection Method Collection Time Receive d Time (Source) Location / / Volume Laterality Blood 09/10/2021 10:05 09/10/2021 AM EDT 10:20 AM EDT Resulting Agency Comment Spec In Lab Vinod Munoz MD HEMATOLOGY ORDERABLES Performing Organization Address City/State/[place] [address] (ABNORMAL) Hemogram (09/10/2021 10:05 AM EDT) Analysis Performed At Patho logist Time Signature WBC 8.2 4.0 - 9.5 [facility] x10(3)/[facility] LABORATORY RBC 4.81 4.58 - [facility] 5.54 [facility] x10(6)/[facility] LABORATORY Hemoglobin 13.6 (L) 13.7 - [facility] 16.5 g/dL [facility] Hematocrit 41.3 40.5 - [facility] AUDRE[facility] 48.5 % [facility] MCV 85.9 82.9 - [facility].1 [facility] LABORATORY MCH 28.3 27.5 - [facility] 32.1 pg [facility] MCHC 32.9 32.0 - [facility] 35.7 g/dL [facility] Platelets 230 145 - 357 [facility] x10(3)/[facility] LABORATORY RDWSD 43.5 36.0 - [facility] 45.0 [facility] LABORATORY RDWCV 13.8 11.4 - [facility] 13.8 % [facility] MPV 9.8 7.6 - 12.9 [facility] LABORATORY nRBC % Auto 0.0 % [facility] nRBC Abs Auto 0.000 0.000 - [facility] 0.000 [facility] x10(3)/[facility] LABORATORY Specimen Anatomical Collection Method Collection Time Receive d Time (Source) Location / / Volume Laterality Blood 09/10/2021 10:05 09/10/2021 AM EDT 10:20 AM EDT Resulting Agency Comment Spec In Lab Vinod Munoz MD HEMATOLOGY ORDERABLES Performing Organization Address City/State/[place] [address] (ABNORMAL) Prothrombin Time (09/10/2021 10:05 AM EDT) P athologist Signature PT 13.2 (H) 9.4 - 12.5 [facility] LABORATORY INR 1.2 [facility] Comment: An INR <2.0 [...] Organization Address City/State/[place] [address] (ABNORMAL) BMP w/fasting Glucose (09/10/2021 10:05 AM EDT) P athologist Signature Glucose 141 (H) 65 - 99 [facility] Fasting mg/dL [facility] Comment: ?Fasting* Glucose Interpretive C [...] of Diabetes Mellitus, Position Statement from the [place] Diabetes Association. ??Diabete s Care, Volume 33, Supplement 1, Feb 2009 BUN 17 10 - 20 mg/dL [facility] Creatinine 0.90 0.80 - 1.50 mg/dL [facility] Sodium 140 135 - 145 mmol/L [...] estions. Chloride 102 98 - 107 mmol/L [facility] CO2 26 22 - 31 mmol/L [facility] Anion Gap 12 5 - 15 mmol/L [facility] Calcium 9.1 8.5 - 10.5 mg/dL [facility] Estimated GFR 90 >=60 mL/min/1.73 m?? [facility] Comment: This patient's estimated [...] Organization Address City/State/[place] [address] EKG 12 Lead (09/10/2021 10:04 AM EDT) Component Value Ref Range Test Analysis Performed Pathologis t Method Time At Signature Ventricular rate 66 BPM MUSE SYSTEM Atrial Rate 85 BPM MUSE SYSTEM QRS Duration 190 ms MUSE SYSTEM Q-T Interval 508 ms MUSE SYSTEM QTC Calculated 532 ms MUSE SYSTEM (Bezet) Calculated R Ladson -96 degrees MUSE SYSTEM Calculated T Ladson 96 degrees MUSE SYSTEM INTERPRETATION Ventricular-paced rhythm [...] Signature POC Glucose 128 65 - 199 [facility] mg/dL [facility] Comment: Supplemental ranges: <140 mg/dL before meals <180 mg/dL all other times of the day Specimen Anatomical Collection Method Collection Time Receive d Time (Source) Location / / Volume Laterality Blood 09/10/2021 9:45 AM 9:45 EDT AM EDT Vinod Munoz MD POINT OF CARE TEST ORDERABLE S Performing Organization Address City/State/[place] [address] documented in this encounter [...] (Intra-Procedure) documented in this encounter Care Teams Vat Washer Relationship Specialty Start Date End Date Jesusita Law MD PCP - General Family Medicine 09/03/[address] [place] [address] documented as of this encounter
--- OUTSIDE RECORDS SUMMARY | 2021-11-22 10:41 | XMS_ITS | Encounter Summary ---
:1945 [place] [address] Care Team Providers Name Role Phone Jeff Olivera MD Primary Care Provider [phone] Reason for Visit Auth/Cert Specialty Diagnoses / Procedures Referred By Contact Refer red To Contact Diagnoses S/P angioplasty with stent ascvd Procedures CARDIAC CATHETERIZATION Referral ID Status Reason Start Date Expiration Date Visits Requ ested Visits Authorized [id number] 1 1 Encounter Details Date Type Department Care Team Description [facility] Encounter Eveline Mcadams MD (arteriosclerotic [facility] cardiovascular [facility] DR disease) [facility] CARDIOLOGY [place], [place] DEPT. [address] [place], [place] [phone] [facility] Social History Tobacco Use Types Packs/Day [...] Lalo Guerra Patient Age: 70 y.o. Language: Syrian Race: White Ethnicity: Not nor Admit date: [...] Inpatient Provider Contact Information: RAJ AVILA MD [phone] Discharge Diagnoses (Hospital Problems) and Secondary Diagnoses [...] appointments: During 8am-5pm Thursday through Thursday call [phone] to speak with a nurse in the cardiology clinic All other times call [phone] and ask to speak to the top edge beveler bond runner. Return to work: 48 hours Driving: No driving for 24 hours after catheterization. Follow up Appointments: PCP Boom Pump Operator Dr Cristhian Real 1 month Home oxygen [...] appointments: During 8am-5pm Thursday through Thursday call [phone] to speak with a nurse in the cardiology clinic All other times call [phone] and ask to speak to the top edge beveler bond runner. Return to work: 48 hours Driving: No driving for 24 hours after catheterization. Follow up Appointments: PCP Boom Pump Operator Dr Cristhian Real 1 month Home oxygen therapy: N/A Arrangements for VNA/home care: none AttachmentsThe following attachments cannot be sent through Care Everywhere.PCI (PERCUTANEOUS CORONARY INTERVENTION) : POST-OP (VIETNAMESE)documented in this encounter Medications at Time of [...] 1550 Report taken from Michell CRAWFORD in ammunition assembly ii laborer Pt arrived at [address] Ambulated from [...] - 10/24/2015 1:00 PM EDT Lalo Guerra [id number] 10/24/2015 70 y.o. Admission History and Physical [...] - FULL code Neisha Luis MD Interventional Background Investigator documented in this encounter Miscellaneous Notes Plan [...] to the outpatient cardiac rehabilitation program at [place] was discussed. Patient agrees to a referral [...] -- Med -- Goal: Infection Control 10/24/15214310/25/15 0500 Safety Interventions Isolation Precautions -- standard precautions maintained Infection Prevention rest/sleep promoted;promote handwashing;nutrition promoted;hydration promoted;environmental surveillance;bronchial hygiene promoted -- Coping/Psychosocial Response Interventions Counseling goal setting facilitated -- Goal: Discharge Needs Assessment 10/25/15 0500 Discharge Needs Assessment Concerns to be Addressed [...] Routine 10/25/2015 3:40 Results f or this ([facility] AM EDT procedure are i n the results section. PROTHROMBIN TIME Routine 10/25/2015 3:40 Results for this AM EDT procedure are i n the results section. CBC (WITH DIFF) Routine 10/25/2015 3:40 AM EDT EQUINE DENTIST SCAN 10/25/2015 12:00 AM EDT ECG SCAN [...] 490 ms MUSE SYSTEM (Bezet) Calculated R Adrian 112 degrees MUSE SYSTEM Calculated T Adrian -66 degrees MUSE SYSTEM INTERPRETATION Demand pacemaker; [...] Method Time Signature Neutrophils % 68.0 % [facility] Neutr Abs (ANC) 8.20 (H) 1.70 - [facility] 6.10 [facility] x10(3)/[facility] LABORATORY Lymphocytes % 18.2 % [facility] Lymphocytes Abs 2.2 0.9 - 3.2 [facility] x10(3)/[place] LABORATORY Monocytes % 9.8 % [facility] Monocyte Abs 1.2 (H) 0.3 - 0.9 [facility] x10(3)/[place] LABORATORY Eosinophils % 2.9 % [facility] Eosinophils Abs 0.4 0.0 - 0.4 [facility] x10(3)/[place] LABORATORY Basophils % 0.7 % [facility] Basophils Abs 0.1 0.0 - 0.1 [facility] x10(3)/[place] LABORATORY Immature Gran % 0.40 % [facility] Comment: Immature granulocytes(IG's)percentage an d absolute count will include metamyelocytes, myelocytes, and promyelo cytes. Blood smears from CBCs yielding IG's will be scanned manually for concor dance. If this scan disagrees with the automated IG or if promyelocytes are not ed, a manual differential will be performed. Anna Gran Abs 0.05 (H) 0.00 - 0.04 x10(3)/[facility] LABORATORY Specimen Anatomical Collection Method Collection Time Receive d Time (Source) Location / / Volume Laterality Blood specimen 10/25/2015 3:40 AM 016 3:53 (specimen) EDT AM EDT Resulting Agency Comment Spec In Lab Raj Avila MD HEMATOLOGY ORDERABLES Performing Organization Address City/State/[place] [address] (ABNORMAL) Hemogram (10/25/2015 3:40 AM EDT) Analysis Performed At Patho logist Time Signature WBC 12.0 (H) 4.0 - 9.5 [facility] x10(3)/[facility] LABORATORY RBC 5.47 4.58 - [facility] 5.54 [facility] x10(6)/[facility] LABORATORY Hemoglobin 15.6 13.7 - [facility] 16.5 gm/dL [facility] Hematocrit 48.5 40.5 - [facility] 48.5 % [facility] MCV 88.7 82.9 - [facility] 93.1 [facility] LABORATORY MCH 28.5 27.5 - [facility] 32.1 pg [facility] MCHC 32.2 32.0 - [facility] 35.7 gm/dL [facility] Platelets 219 145 - 357 [facility] x10(3)/[facility] LABORATORY RDWSD 45.3 (H) 36.0 - [facility] 45.0 [facility] LABORATORY RDWCV 14.1 (H) 11.4 - [facility] 13.8 % [facility]ORATORY MPV 10.2 7.6 - 12.9 [facility] LABORATORY nRBC % Auto 0.0 % [facility] nRBC Abs Auto 0.000 0.000 - [facility] 0.000 [facility] x10(3)/[facility] LABORATORY Specimen Anatomical Collection Method Collection Time Receive d Time (Source) Location / / Volume Laterality Blood specimen 10/25/2015 3:40 AM 016 3:53 (specimen) EDT AM EDT Resulting Agency Comment Spec In Lab Raj Avila MD HEMATOLOGY ORDERABLES Performing Organization Address City/State/[place] [address] Prothrombin Time (10/25/2015 3:40 AM EDT) P athologist Signature PT 14.0 12.0 - 15.0 [facility] LABORATORY Comment: An INR <2.0 indicates adequate [...] linical circumstances. INR 1.1 0.9 - 1.1 [facility] Specimen Anatomical Collection Method Collection Time Receive d Time (Source) Location / / Volume Laterality Blood specimen 10/25/2015 3:40 AM 016 3:53 (specimen) EDT AM EDT Resulting Agency Comment Spec In Lab Raj Avila MD HEMATOLOGY ORDERABLES Performing Organization Address City/State/[place] [address] (ABNORMAL) BMP w/fasting Glucose (10/25/2015 3:40 AM EDT) athologist Signature Glucose 119 (H) 65 - 99 [facility] Fasting mg/dL [facility] Comment: ?Fasting* Glucose Interpretive C [...] of Diabetes Mellitus, Position Statement from the [place] Diabetes Association. ??Diabete s Care, Volume 33, Supplement 1, Feb 2009 BUN 15 10 - 20 mg/dL [facility] Creatinine 0.99 0.80 - 1.50 mg/dL [facility] Comment: Please note that the pediatric reference intervals supplied above were not validated at [facility]. Results from pediatri c patients should be interpreted in conjunction to the patient's age, height and muscle mass. Sodium 141 135 - 145 mmol/L [facility] Potassium 4.4 3.5 - 5.0 mmol/L [facility] Comment: Please note: ??Patients with WBC >100,00 0 may have falsely elevated Potassium levels. ??For accurate Potassium quantif ication in these patients send serum separator tube (gold top) for subsequent determinations. ??Contact the Clinical Chemistry Laboratory if there are any qu estions. Chloride 101 98 - 107 mmol/L [facility] CO2 24 22 - 31 mmol/L [facility] Anion Gap 16 (H) 5 - 15 mmol/L [facility] Calcium 9.1 8.5 - 10.5 mg/dL [facility] Estimated GFR >60 >=60 [facility] Comment: This estimated GFR (eGFR) [...] the following links into your internet browser. [email or web address] [email or web address] Specimen Anatomical Collection Method Collection Time Receive d Time (Source) Location / / Volume Laterality Blood specimen 10/25/2015 3:40 AM 016 3:53 (specimen) EDT AM EDT Resulting Agency Comment Spec In Lab Raj Avila MD CHEMISTRY ORDERABLES Performing Organization Address City/State/[place] [address] Cardiac Enzymes (10/25/2015 3:40 AM EDT) P athologist Signature Troponin-T <0.03 <=0.03 [facility] ng/mL [facility] Comment: 0.03 ng/mL: Represents the [...] consensus document of the Joint Society of Cardiology/[place] College o f Cardiology Committee for the redefinition of myocardial infarction. ? ?Journal of the [place] College of Cardiology 2000; 36: 959-969] CK, Total 82 0 - 200 unit/L [facility] Specimen Anatomical Collection Method Collection Time Receive d Time (Source) Location / / Volume Laterality Blood specimen 10/25/2015 3:40 AM 016 3:53 (specimen) EDT AM EDT Resulting Agency Comment Spec In Lab Raj Avila MD CHEMISTRY ORDERABLES Performing Organization Address City/State/ZIP [place] [address] SCAN DOC: EQUINE DENTIST (10/25/2015 12:00 AM EDT) Narrative This result [...] 502 ms MUSE SYSTEM (Bezet) Calculated R Adrian -77 degrees MUSE SYSTEM Calculated T Adrian 73 degrees MUSE SYSTEM INTERPRETATION Electronic ventricular [...] Avila MD ECG ORDERABLES Performing Organization Address City/[facility]/ZIP Code Phon e Number MUSE SYSTEM EKG [...] 475 ms MUSE SYSTEM (Bezet) Calculated P Adrian -51 degrees MUSE SYSTEM Calculated R Adrian -68 degrees MUSE SYSTEM Calculated T Adrian 87 degrees MUSE SYSTEM INTERPRETATION Electronic ventricular pacemaker MUSE SYSTEM When compared with ECG of 04-OCT-1991 16:41, Electronic ventricular pacemaker has replaced Sinus rhythm Confirmed by Robel CONTE MD, Nathaniel (58) on 10/24/2015 9:49: 24 AM Specimen Anatomical Collection Method Collection Time Receive d Time (Source) Location / / Volume Laterality 10/24/2015 8:50 AM 6 9:49 EDT AM EDT Raj Avila MD ECG ORDERABLES Performing Organization Address City/[facility]/ZIP Code Phon e Number MUSE SYSTEM Prothrombin Time (10/24/2015 8:09 AM EDT) P athologist Signature PT 13.7 12.0 - 15.0 [facility] LABORATORY Comment: An INR <2.0 indicates adequate [...] linical circumstances. INR 1.0 0.9 - 1.1 [facility] Specimen Anatomical Collection Method Collection Time Receive d Time (Source) Location / / Volume Laterality Blood specimen 10/24/2015 8:09 AM 016 8:16 (specimen) EDT AM EDT Resulting Agency Comment Spec In Lab Raj Avila MD HEMATOLOGY ORDERABLES Performing Organization Address City/State/ZIP [place] [address] documented in this encounter [...] at 2100 aspirin EC tablet 81 mg 08 (Gi milagros - Provider: Lyndsay Obando RN) [...] 818 (Given - Provider: Lyndsay tierney, TY) 2 [...] (Intra-Procedure) documented in this encounter Care Teams Is Technician Relationship Specialty Start Date End Date Jeff Olivera MD PCP - General Family Medicine 10/24/15 09/02/21 documented as of this encounter
--- OUTSIDE RECORDS SUMMARY | 2021-11-22 10:41 | XMS_ITS | Encounter Summary ---
:1945 Author Organization [place] [address] Care Team Providers Name Role Phone Jesusita Law MD Primary Care Provider [phone] Encounter Details Date Type Department Care Team Description 06/22/2019 Hospital Encounter Laboratory [facility] [place] [address] Social History Tobacco Use Types Packs/Day [...] Results COVID-19 PCR (06/22/2019 1:00 PM EDT) [facility] Method Time Signature SARS-CoV-2 Not Detected Not Detected [facility] Comment: This result should be interpreted [...] the instructions for use provided by the [employer] and additional guidance provided by CDC and FDA. Testing is performed in the [facility] Gen[facility] and [facility] Laboratory within the Department of Path ology and Laboratory Medicine at [facility], cert ified under the Clinical Laboratory [...] fact sheets at the following FDA website: https://www.fda.gov/medical-devices/qpvngryyd-ummnpbkdar-yyuhbjk-devices/emergen uj-gfm-xbriaietylitnz#dywtt49zjx SARS-Cov-2 RNA Source COMMISSIONS ANALYST Swab [facility] Specimen (Source) Anatomical Collection Method Collection Time Re ceived Time Location / / Volume Laterality Nasopharyngeal swab Other / Unknown 06/22/2019 1:00 (specimen) PM EDT 10:13 PM EDT Resulting Agency Comment Spec In Lab Brodie Kelly DO MICROBIOLOGY - GENERAL JUAN SHAFFER Performing Organization Address City/State/[place] [address] documented in this encounter Visit Diagnoses Not on filedocumented in this encounter Care Teams Straight Truck Driver Relationship Specialty Start Date End Date Jesusita Law MD PCP - General Family Medicine 10/24/15 09/02/21 documented as of this encounter
--- OUTSIDE RECORDS SUMMARY | 2021-11-22 10:41 | XMS_ITS | Encounter Summary ---
:1945 Author Organization [facility] [place] [address] Care Team Providers Name Role Phone Jesusita Law MD Primary Care Provider [phone] Encounter Details Date Type Department Care Team Description 01/19/2020 Telephone MRI at [facility] [place] [facility] [place] [address] Social History Tobacco Use Types Packs/Day [...] on filedocumented in this encounter Care Teams Manual Writer Relationship Specialty Start Date End Date Jesusita Law MD PCP - General Family Medicine 10/24/15 09/02/21 documented as of this encounter
--- OUTSIDE RECORDS SUMMARY | 2021-11-22 10:41 | XMS_ITS | Encounter Summary ---
:1945 [place] [address] Care Team Providers Name Role Phone Jesusita Law MD Primary Care Provider Encounter Details Date Type Department Care Team Description 08/29/2021 Orders Only Research Lab Assistant Macario Holliday, Screening for cardiovascular condition; [facility] Abnormal stress test; [facility] Chest pain, unspecified type [facility] [place] [address] [place], [place] [phone] (Work) [phone] Social History Tobacco Use Types Packs/Day Years [...] type documented in this encounter Care Teams Economics Analyst Relationship Specialty Start Date End Date Jesusita Law MD PCP - General Family Medicine 10/24/15 09/02/21 documented as of this encounter
--- OUTSIDE RECORDS SUMMARY | 2021-11-22 10:41 | XMS_ITS | Encounter Summary ---
:1945 Author Organization [facility] [place] [address] Care Team Providers Name Role Phone Jesusita Law MD Primary Care Provider [phone] Reason for Visit Diagnostic Test (Routine) - Closed Specialty Diagnoses / Procedures Referred By Contact Refer red To Contact Radiology Diagnoses Abnormal digital rectal exam Lavern Membreno MD [facility] Rad Mri Procedures MRI Pelvis wwo (Prostate) [address] [place], [place] [id number] [place] [phone] Referral ID Status Reason Start Date Expiration Date Visits V isits Requested Authorized [id number] Closed Specialty 12/16/2019 06/14/2021 1 1 Service Requested Encounter Details Date Type Department Care Team Description 02/29/2020 Hospital Encounter MRI at [facility] [place] Lavern Membreno MD [address] [address] [phone] Social History Tobacco Use Types Packs/Day Years [...] documented in this encounter Care Teams Environmental Field Services Technician Relationship Specialty Start Date End Date Jesusita Law MD PCP - General Family Medicine 10/24/15 09/02/21 documented as of this encounter
--- OUTSIDE RECORDS SUMMARY | 2021-11-22 10:41 | XMS_ITS | Encounter Summary ---
:1945 Author Organization [facility] Address [address] [place] [address] Care Team Providers Name Role Phone Jesusita Law MD Primary Care Provider [phone] Encounter Details Date Type Department Care Team Description 02/29/2020 Hospital En[place] [facility] [place]o, Abnormal digital [address] [place]LOS rectal exam [place], [place] [address] [facility] [address] [address] [phone] [place] [address] Social History Tobacco Use Types [...] report, please contact e number below. ? Narrative 02/29/2020 2:59 PM EST EXAMINATION: XR [...] this report, please contact e number below. Lavern Membreno MD IMG DX ORDERABLES XR [...] report, please contact th e number below. ? Narrative 02/29/2020 1:45 PM EST EXAMINATION: XR [...] contact e number below. Electronically signed by: Abdelrahman Gray DO, [facility] ([phone]), at 02/29/2020 1:45 PM Lavern Membreno MD IMG DX ORDERABLES documented in this encounter Visit Diagnoses Diagnosis Abnormal digital rectal exam Other abnormal clinical finding documented in this encounter Care Teams High School Director Relationship Specialty Start Date End Date Jesusita Law MD PCP - General Family Medicine 10/24/15 09/02/21 documented as of this encounter
--- OUTSIDE RECORDS SUMMARY | 2021-11-22 10:41 | XMS_ITS | Encounter Summary ---
:1945 [place] [address] Care Team Providers Name Role Phone Jeff Olivera MD Primary Care Provider Reason for Visit Auth/Cert Specialty Diagnoses / Procedures Referred By Contact Refer red To Contact Diagnoses S/P angioplasty with stent ascvd Procedures CARDIAC CATHETERIZATION Referral ID Status Reason Start Date Expiration Date Visits Requ ested Visits Authorized [id number] 1 1 Encounter Details Date Type Department Care Team Description 10/24/2015 Surgery Pm Technician Vaishnavi Kraus MD CARDIAC CATHETERIZATION [facility] [address] [place] [address] [place] [address] [phone] (Wo rk) Social History Tobacco Use Types [...] Lalo Guerra Patient Age: 70 y.o. Language: Vincentian Race: White Ethnicity: Not nor Admit date: [...] Inpatient Provider Contact Information: RAJ AVILA MD [phone] Discharge Diagnoses (Hospital Problems) and Secondary Diagnoses [...] appointments: During 8am-5pm Thursday through Thursday call [phone] to speak with a nurse in the cardiology clinic All other times call [phone] and ask to speak to the process specialist carbonizer tester. Return to work: 48 hours Driving: No driving for 24 hours after catheterization. Follow up Appointments: PCP Comb Fixer Dr Cristhian Real 1 month Home oxygen [...] appointments: During 8am-5pm Thursday through Thursday call [phone] to speak with a nurse in the cardiology clinic All other times call [phone] and ask to speak to the process specialist carbonizer tester. Return to work: 48 hours Driving: No driving for 24 hours after catheterization. Follow up Appointments: PCP Comb Fixer Dr Cristhian Real 1 month Home oxygen therapy: N/A Arrangements for VNA/home care: none AttachmentsThe following attachments cannot be sent through Care Everywhere.PCI (PERCUTANEOUS CORONARY INTERVENTION) : POST-OP (ARABIC)documented in this encounter Medications at Time of [...] 1550 Report taken from Michell CRAWFORD in pathology lab technician Pt arrived at [address] Ambulated from [...] - 10/24/2015 1:00 PM EDT Lalo Guerra [id number] 10/24/2015 70 y.o. Admission History and Physical [...] - FULL code Neisha Luis MD Interventional Sr. Vendor Management Associate documented in this encounter Miscellaneous Notes Plan [...] to the outpatient cardiac rehabilitation program at [place] was discussed. Patient agrees to a referral [...] Routine 10/25/2015 3:40 Results f or this ([facility] [place] [place] AM EDT procedure are i n the results section. PROTHROMBIN TIME Routine 10/25/2015 3:40 Results for this AM EDT procedure are i n the results section. CBC (WITH DIFF) Routine 10/25/2015 3:40 AM EDT BRIM SETTER SCAN 10/25/2015 12:00 AM EDT ECG SCAN [...] 490 ms MUSE SYSTEM (Bezet) Calculated R Caballo 112 degrees MUSE SYSTEM Calculated T Caballo -66 degrees MUSE SYSTEM INTERPRETATION Demand pacemaker; [...] Method Time Signature Neutrophils % 68.0 % [facility] Neutr Abs (ANC) 8.20 (H) 1.70 - [facility] 6.10 [facility] x10(3)/[facility] L LABORATORY Lymphocytes % 18.2 % [facility] Lymphocytes Abs 2.2 0.9 - 3.2 [facility] x10(3)/[facility] LABORATORY Monocytes % 9.8 % [facility] Monocyte Abs 1.2 (H) 0.3 - 0.9 [facility] x10(3)/[facility] LABORATORY Eosinophils % 2.9 % [facility] Eosinophils Abs 0.4 0.0 - 0.4 [facility] x10(3)/[facility] LABORATORY Basophils % 0.7 % [facility] Basophils Abs 0.1 0.0 - 0.1 [facility] x10(3)/[facility] LABORATORY Immature Gran % 0.40 % [facility] Comment: Immature granulocytes(IG's)percentage an d absolute count will include metamyelocytes, myelocytes, and promyelo cytes. Blood smears from CBCs yielding IG's will be scanned manually for concor dance. If this scan disagrees with the automated IG or if promyelocytes are not ed, a manual differential will be performed. Anna Gran Abs 0.05 (H) 0.00 - 0.04 x10(3)/[facility] LABORATORY Specimen Anatomical Collection Method Collection Time Receive d Time (Source) Location / / Volume Laterality Blood specimen 10/25/2015 3:40 AM 016 3:53 (specimen) EDT AM EDT Resulting Agency Comment Spec In Lab Raj Avila MD HEMATOLOGY ORDERABLES Performing Organization Address City/State/[place] [address] (ABNORMAL) Hemogram (10/25/2015 3:40 AM EDT) Analysis Performed At Patho logist Time Signature WBC 12.0 (H) 4.0 - 9.5 [facility] x10(3)/[facility] LABORATORY RBC 5.47 4.58 - [facility] 5.54 [facility] x10(6)/[facility] LABORATORY Hemoglobin 15.6 13.7 - [facility] 16.5 gm/dL [facility] Hematocrit 48.5 40.5 - [facility] 48.5 % [facility] MCV 88.7 82.9 - MAIRA AUDREY 93.1 [facility] LABORATORY MCH 28.5 27.5 - MAIRA ESTEVEZCK 32.1 pg [facility] MCHC 32.2 32.0 - MAIRA VENTURA 35.7 gm/dL [facility] Platelets 219 145 - 357 [facility] x10(3)/[facility] LABORATORY RDWSD 45.3 (H) 36.0 - [facility] AUDREY 45.0 [facility] LABORATORY RDWCV 14.1 (H) 11.4 - [facility] AUDREY 13.8 % [facility] LABORAT[facility] MPV 10.2 7.6 - 12.9 [facility] LABORATORY nRBC % Auto 0.0 % [facility] nRBC Abs Auto 0.000 0.000 - MAIRA AUDREY 0.000 [facility] x10(3)/[facility] LABORATORY Specimen Anatomical Collection Method Collection Time Receive d Time (Source) Location / / Volume Laterality Blood specimen 10/25/2015 3:40 AM 016 3:53 (specimen) EDT AM EDT Resulting Agency Comment Spec In Lab Raj Avila MD HEMATOLOGY ORDERABLES Performing Organization Address City/State/[place] [address] Prothrombin Time (10/25/2015 3:40 AM EDT) P athologist Signature PT 14.0 12.0 - 15.0 [facility] LABORATORY Comment: An INR <2.0 [...] Organization Address City/State/[place] [address] (ABNORMAL) BMP w/fasting Glucose (10/25/2015 3:40 AM EDT) athologist Signature Glucose 119 (H) 65 - 99 [facility] Fasting mg/dL [facility] Comment: ?Fasting* Glucose Interpretive C [...] of Diabetes Mellitus, Position Statement from the [place] [employer] Association. ??Diabete s Care, Volume 33, Supplement 1, Feb 2009 BUN 15 10 - 20 mg/dL [facility] Creatinine 0.99 0.80 - 1.50 mg/dL [facility] Comment: Please note that the pediatric reference intervals supplied above were not validated at [facility]. Results from pediatri c patients should be interpreted in conjunction to the patient's age, height and muscle mass. Sodium 141 135 - 145 mmol/L [facility] Potassium 4.4 3.5 - 5.0 mmol/L [facility] Comment: Please note: ??Patients with WBC >100,00 0 may have falsely elevated Potassium levels. ??For accurate Potassium quantif ication in these patients send serum separator tube (gold top) for subsequent determinations. ??Contact the Clinical Chemistry Laboratory if there are any qu estions. Chloride 101 98 - 107 mmol/L [facility] CO2 24 22 - 31 mmol/L [facility] Anion Gap 16 (H) 5 - 15 mmol/L [facility] Calcium 9.1 8.5 - 10.5 mg/dL [facility] Estimated GFR >60 >=60 [facility] Comment: This estimated GFR (eGFR) [...] the following links into your internet browser. [email or web address] [email or web address] Specimen Anatomical Collection Method Collection Time Receive d Time (Source) Location / / Volume Laterality Blood specimen 10/25/2015 3:40 AM 016 3:53 (specimen) EDT AM EDT Resulting Agency Comment Spec In Lab Raj Avila MD CHEMISTRY ORDERABLES Performing Organization Address City/State/[place] [address] Cardiac Enzymes (10/25/2015 3:40 AM EDT) P athologist Signature Troponin-T <0.03 <=0.03 [facility] ng/mL [facility] Comment: 0.03 ng/mL: Represents the [...] consensus document of the Joint Society of Cardiology/[place] College o f Cardiology Committee for the redefinition of myocardial infarction. ? ?Journal of the [place] College of Cardiology 2000; 36: 959-969] CK, Total 82 0 - 200 unit/L [facility] Specimen Anatomical Collection Method Collection Time Receive d Time (Source) Location / / Volume Laterality Blood specimen 10/25/2015 3:40 AM 016 3:53 (specimen) EDT AM EDT Resulting Agency Comment Spec In Lab Raj Avila MD CHEMISTRY ORDERABLES Performing Organization Address City/[facility]/[place] [address] SCAN DOC: BRIM SETTER (10/25/2015 12:00 AM EDT) Narrative This result [...] 502 ms MUSE SYSTEM (Bezet) Calculated R Caballo -77 degrees MUSE SYSTEM Calculated T Caballo 73 degrees MUSE SYSTEM INTERPRETATION Electronic ventricular [...] Avila MD ECG ORDERABLES Performing Organization Address City/[facility]/ZIP Code Phon e Number MUSE SYSTEM EKG [...] 475 ms MUSE SYSTEM (Bezet) Calculated P Caballo -51 degrees MUSE SYSTEM Calculated R Caballo -68 degrees MUSE SYSTEM Calculated T Caballo 87 degrees MUSE SYSTEM INTERPRETATION Electronic ventricular [...] Avila MD ECG ORDERABLES Performing Organization Address City/[facility]/ZIP Code Phon e Number MUSE SYSTEM Prothrombin Time (10/24/2015 8:09 AM EDT) P athologist Signature PT 13.7 12.0 - 15.0 [facility] LABORATORY Comment: An INR <2.0 [...] Organization Address City/State/ZIP [place] [address] documented in this encounter [...] 1836, Until Thu10/25/15 at 1237, Anxiety, Routine AMIOdarone (CORDARONE) injection [...] 240 mg, Oral, DAILY, First dose on Izabel 10/25/15 at 0900, Until Discontinued, DO NOT CRUSH [...] Lindo RN) 818 (Given - Provider: Lyndsay tierney RN) 25 mg, Oral, 2 TIMES DAILY, First dose o n Thu10/24/15 at 2100, Until Discontinued, Routine Mometasone-Formoterol 200-5 mcg/actuation HFAA 2 puff 2048 (Given - Provider: Sidra Lindo RN) 0819 (Given - Provider: Lyndsay Herr [facility], [place]) 2 puff, Inhalation, 2 TIMES DAILY, First dose on Thu10/24/15 at 2100 pravastatin (PRAVACHOL) tablet 80 mg 80 mg, Oral, EVERY EVENING, First dose o n Izabel 10/25/15 at 1700, Until Discontinued, Routine warfarin (COUMADIN) [...] (Intra-Procedure) documented in this encounter Care Teams Transit Mix Operator Relationship Specialty Start Date End Date Jeff Olivera MD PCP - General Family Medicine 10/24/15 09/02/21 documented as of this encounter
--- OUTSIDE RECORDS SUMMARY | 2021-11-22 10:41 | XMS_ITS | Encounter Summary ---
:1945 Author Organization [facility] [place] [address] Care Team Providers Name Role Phone Jesusita Law MD Primary Care Provider [phone] Encounter Details Date Type Department Care Team Description 12/29/2019 Telephone MRI at [facility] [place] [address] Social History Tobacco Use Types Packs/Day [...] he will be having mri done at [facility] instead. documented in this encounter Plan of Treatment Not on filedocumented as of this encounter Visit Diagnoses Not on filedocumented in this encounter Care Teams Test Preparation Tutor Relationship Specialty Start Date End Date Jesusita Law MD PCP - General Family Medicine 10/24/15 09/02/21 documented as of this encounter
--- OUTSIDE RECORDS SUMMARY | 2021-11-22 10:41 | XMS_ITS | Encounter Summary ---
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, unspecified vessel or lesion type cad Abdon Dawson MD [facility] Procedures PRO CABG, ARTERIAL, SINGLE PRO CABG, ARTERY-VEIN, THREE PRO ENDOSCOPY W/VIDEO-ASST VEIN HARVEST, CABG @CABG, USING ARTERIAL GRAFT;SINGLE ARTERIAL GRAFT (WRVU 33.75) @CABG; 3 VENOUS GRAFTS & ARTERIAL GRAFT (WRVU 10.49) [facility] DR ALMEIDA HARVEST VEIN(S) FOR CABG (WRV U 0.31) [place] [address] Referral ID Status Reason Start Date Expiration Date Visits Requ ested Visits Authorized [id number] 1 1 Encounter Details Date Type Department Care Team Description 09/24/2021 Office Visit Cardiac Surgery at [facility] Dawson Coron rj artery [facility] [place] Murali disease involving [facility] terry dior heart with Drive unstable angina [place], [place] CARDIOTHORACIC pectoris, uns pecified [phone] SURGERY vessel or lesion type [phone] [place], [place] [address] Social History Tobacco Use Types [...] ?? Diagnosis ??? 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 Family History: Family History [...] on filedocumented as of this encounter Results XR Chest [...] have questions please contact the health career resource specialist that requested your imaging first. ? Electronically signed by: Marilin Rocha MD , [facility] ([phone]), at 09/24/2021 3:26 PM Narrative 09/24/2021 3:26 [...] 09/24/2021 EXAMINATION: XR CHEST PA AND LATERAL (GE NERIC) CLINICAL HISTORY: cad Unstable angina. TECHNIQUE: PA [...] have questions please contact the health career resource specialist that requested your imaging first. Electronically signed by: Marilin Rocha MD , [facility] ([phone]), at 09/24/2021 3:26 PM Abdon Dawson MD IMG DX ORDERABLES EKG 12 Lead (09/24/2021 1:08 PM EDT) [facility] gist Method Time Signature Ventricular rate 82 BPM MUSE SYSTEM Atrial Rate 80 BPM MUSE SYSTEM QRS Duration 184 ms MUSE SYSTEM Q-T Interval 464 ms MUSE SYSTEM QTC Calculated 542 ms MUSE SYSTEM (Bezet) Calculated R Speer -124 degrees MUSE SYSTEM Calculated T Speer 103 degrees MUSE SYSTEM INTERPRETATION Ventricular-paced rhythm [...] Metabolic Panel (non-fasting) (09/24/2021 1:06 PM EDT) athologist Signature Glucose Lvl 143 65 - 199 [facility] mg/dL [facility] LABOR[facility]ORY Comment: Diabetes: >=200 mg/dL plus symp toms BUN 22 (H) 10 - 20 mg/dL [facility] Creatinine 0.94 0.80 - 1.50 mg/dL [facility] Sodium 141 135 - 145 mmol/L [facility] Potassium 4.4 3.5 - 5.0 mmol/L [facility] Comment: Please note: ??Patients with WBC >100,00 0 may have falsely elevated Potassium levels. ??For accurate Potassium quantif ication in these patients send serum separator tube (gold top) for subsequent determinations. ??Contact the Clinical Chemistry Laboratory if there are any qu estions. Chloride 102 98 - 107 mmol/L [facility] CO2 27 22 - 31 mmol/L [facility] Anion Gap 12 5 - 15 mmol/L [facility] Calcium 9.4 8.5 - 10.5 mg/dL [facility] Estimated GFR 85 >=60 mL/min/1.73 m?? 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
--- OUTSIDE RECORDS SUMMARY | 2021-11-22 10:41 | XMS_ITS | Encounter Summary ---
:1945 Author Organization [facility] [place] [address] Care Team Providers Name Role Phone Jesusita Law MD Primary Care Provider [phone] Encounter Details Date Type Department Care Team Description 09/10/2021 Surgery Exceptional Student Education Teacher Vinod Miguel, CARDIAC CATHETERIZATION [facility] [place] [address] CARDIOLOGY DEPT. [phone] [place], [place] [address] (Wo rk) Social History Tobacco [...] by your doctor, do not take any odfp-sso-lqtasch medicines or herbal preparations without first discussing this with your doctor or pharmacist. There is the possibility of side effects and interactions when these are combined. Follow Up Care Who to call with questions or problems If there are any questions or problems that you think might be related to your cardiac cath or angioplasty, contact the route manager activities concierge by calling [facility] at . Patient InstructionsAnnalise Dimas MD - [...] appointments: During 8am-5pm Thursday through Thursday call [phone] and ask to speak to the cardiology clinic triage nurse. All other times call [phone] and ask to speak to the french binder activities concierge. Return to work: 1 day Driving: No driving 1 day Diet: Heart healthy, low carbohydrate Follow up Appointments: - Follow up with your Optical Effects Line Up Person and Cardiac Surgery - Your Primary Optical Effects Line Up Person was updated with the results of your [...] from the original note were not included. [facility] [place] [address] SAME DAY CARDIAC CATHETERIZATION LAB H&P ID: [...] as planned -consent signed Annalise Dimas MD Home Therapy Clinician 09/09/2021 documented in this encounter Miscellaneous Notes Brief Op Note - Vinod Munoz MD - 09/10/2021 11:30 AM EDT Preliminary Cardiac Catheterization Procedure Note: Patient Name: Lalo Guerra : [id number] MR#: [id number] Case Date: 09/10/2021 Driving Instructor: Surgeon(s) and Role: * Vinod Munoz MD [...] Laterality Volume Narrative 09/10/2021 11:54 AM EDT ?[facility] ? Cardiac Cathete rization/Intervention Report ? Patient Name: Lalo Guerra. ? Procedure Date: 09/10/2021 ? A #: [id number] ? Primary Physician: Tammy, Vinod T ? Case #: [id number] ? File Name: [id number] ? Catheterization Order Number: [id number] ? [facility] ? Final Report [facility], [place] ? Patient Name: ? Lalo R. Gra mmo ?ID#: ?[id number] ? : ?1945 ? Procedure Date: ? [...] procedure was Elective. The indication for ?the oil laboratory analyst visit is worsening angina. Chest pain symptom [...] room air. ?I-Stat: ? I-Stat was performed i jesse the I-Stat analyzer at 10:46: Na+: 140, [...] Blood Gas Historical (09/10/2021 10:46 AM EDT) [facility] Method Time Signature POC pH 7.42 7.35 - [facility] 7.45 [facility] POC PCO2 39 35 - 45 [facility] mmHg [facility] POC PO2 96 85 - 104 [facility] LABORATORY POC Base Excess 1.0 -3.0 - 3.0 [facility] K mmol/L [facility] POC HCO3 25.1 20.0 - [facility] 26.0 [facility] mmol/[facility] POC Sodium 140 135 - 145 [facility] mmol/L [facility] POC Potassium 3.8 3.5 - 5.0 [facility] mmol/L [facility] POC Ionized Ca 1.16 1.15 - [facility] 1.33 [facility] POC Hematocrit 40.0 40.0 - [facility] 51.0 % [facility] POC Calc Hgb 13.6 (L) 13.7 - [facility] 17.5 g/dL [facility] Comment: The calculation of hemoglobin f rom hematocrit assumes a normal MCHC. POC Bgas Loc CC LAB [facility] Specimen Anatomical Collection Method Collection Time Receive d Time (Source) Location / / Volume Laterality Blood 09/10/2021 10:46 09/12/2021 AM EDT 12:00 PM EDT Vinod Munoz MD CHEMISTRY ORDERABLES Performing Organization Address City/State/[place] [address] (ABNORMAL) Differential, Automated (09/10/2021 10:05 AM EDT) [facility] Method Time Signature Neutrophils % 59.7 % [facility] Neutr Abs (ANC) 4.87 1.70 - [facility] 6.10 [facility] x10(3)/[facility] LABORATORY Lymphocytes % 24.0 % [facility] Lymphocytes Abs 2.0 0.9 - 3.2 [facility] x10(3)/[facility] LABORATORY Monocytes % 12.0 % [facility] Monocyte Abs 1.0 (H) 0.3 - 0.9 [facility] x10(3)/[facility] LABORATORY Eosinophils % 2.8 % [facility] Eosinophils Abs 0.2 0.0 - 0.4 [facility] x10(3)/[facility] LABORATORY Basophils % 1.0 % [facility] Basophils Abs 0.1 0.0 - 0.1 [facility] x10(3)/[facility] LABORATORY Immature Gran % 0.50 % [facility] Comment: Immature granulocytes(IG's)percentage an d absolute count will include metamyelocytes, myelocytes, and promyelo cytes. Blood smears from CBCs yielding IG's will be scanned manually for concor dance. If this scan disagrees with the automated IG or if promyelocytes are not ed, a manual differential will be performed. Anna Gran Abs 0.04 0.00 - 0.04 x10(3)/[facility] Specimen Anatomical Collection Method Collection Time Receive d Time (Source) Location / / Volume Laterality Blood 09/10/2021 10:05 09/10/2021 AM EDT 10:20 AM EDT Resulting Agency Comment Spec In Lab Vinod Munoz MD HEMATOLOGY ORDERABLES Performing Organization Address City/State/[place] [address] (ABNORMAL) Hemogram (09/10/2021 10:05 AM EDT) Analysis Performed At Patho logist Time Signature WBC 8.2 4.0 - 9.5 [facility] x10(3)/[facility] LABORATORY RBC 4.81 4.58 - [facility] 5.54 [facility] x10(6)/[facility] LABORATORY Hemoglobin 13.6 (L) 13.7 - [facility] 16.5 g/dL [facility] Hematocrit 41.3 40.5 - [facility] 48.5 % [facility] MCV 85.9 82.9 - [facility] 93.1 [facility] LABORATORY MCH 28.3 27.5 - [facility] 32.1 pg [facility] MCHC 32.9 32.0 - [facility] 35.7 g/dL [facility] Platelets 230 145 - 357 [facility] x10(3)/[facility] LABORATORY RDWSD 43.5 36.0 - [facility] 45.0 [facility] LABORATORY RDWCV 13.8 11.4 - [facility] 13.8 % [facility] MPV 9.8 7.6 - 12.9 [facility] LABORATORY nRBC % Auto 0.0 % [facility] nRBC Abs Auto 0.000 0.000 - [facility] 0.000 [facility] x10(3)/[facility] LABORATORY Specimen Anatomical Collection Method Collection Time Receive d Time (Source) Location / / Volume Laterality Blood 09/10/2021 10:05 09/10/2021 AM EDT 10:20 AM EDT Resulting Agency Comment Spec In Lab Vinod Munoz MD HEMATOLOGY ORDERABLES Performing Organization Address City/State/[place] [address] (ABNORMAL) Prothrombin Time (09/10/2021 10:05 AM EDT) P athologist Signature PT 13.2 (H) 9.4 - 12.5 [facility] LABORATORY INR 1.2 [facility] Comment: An INR <2.0 indicates [...] Organization Address City/State/ZIP Code Phon e Number [place] [id number] (ABNORMAL) BMP w/fasting Glucose (09/10/2021 10:05 AM EDT) P athologist Signature Glucose 141 (H) 65 - 99 [facility] Fasting mg/dL [facility] Comment: ?Fasting* Glucose Interpretive C [...] of Diabetes Mellitus, Position Statement from the [place] Diabetes Association. ??Diabete s Care, Volume 33, Supplement 1, Feb 2009 BUN 17 10 - 20 mg/dL [facility] Creatinine 0.90 0.80 - 1.50 mg/dL [facility] Sodium 140 135 - 145 mmol/L [facility] Potassium 4.0 3.5 - 5.0 mmol/L [facility] Comment: Please note: ??Patients with WBC >100,00 0 may have falsely elevated Potassium levels. ??For accurate Potassium quantif ication in these patients send serum separator tube (gold top) for subsequent determinations. ??Contact the Clinical Chemistry Laboratory if there are any qu estions. Chloride 102 98 - 107 mmol/L [facility] CO2 26 22 - 31 mmol/L [facility] Anion Gap 12 5 - 15 mmol/L [facility] Calcium 9.1 8.5 - 10.5 mg/dL [facility]ORY Estimated GFR 90 >=60 mL/min/1.73 m?? [facility] [...] Organization Address City/State/[place] [address] EKG 12 Lead (09/10/2021 10:04 AM EDT) Component Value Ref Range Test Analysis Performed Pathologis t Method Time At Signature Ventricular rate 66 BPM MUSE SYSTEM Atrial Rate 85 BPM MUSE SYSTEM QRS Duration 190 ms MUSE SYSTEM Q-T Interval 508 ms MUSE SYSTEM QTC Calculated 532 ms MUSE SYSTEM (Bezet) Calculated R [place] -96 degrees MUSE SYSTEM Calculated T [place] 96 degrees MUSE SYSTEM INTERPRETATION Ventricular-paced rhythm [...] POC Glucose 128 65 - 199 [facility] mg/dL [facility] Comment: Supplemental ranges: <140 mg/dL before meals <180 mg/dL all other times of the day Specimen Anatomical Collection Method Collection Time Receive d Time (Source) Location / / Volume Laterality Blood 09/10/2021 9:45 AM 9:45 EDT AM EDT Vinod Munoz MD POINT OF CARE TEST ORDERABLE S Performing Organization Address City/State/[place] [address] documented in this encounter [...] (CANCELED ) 1040 (Given - Provider: Mariann Castaneda, TY) ONCE PRN, Starting on Thu09/10/21 at 1040 [...] (Intra-Procedure) documented in this encounter Care Teams Drawing Frame Tender Relationship Specialty Start Date End Date Jesusita Law MD PCP - General Family Medicine 09/03/[address] [place] [address] documented as of this encounter
--- OUTSIDE RECORDS SUMMARY | 2021-11-22 10:41 | XMS_ITS | Encounter Summary ---
:1945 Author Organization [facility] [place] [address] Care Team Providers Name Role Phone Jesusita Law MD Primary Care Provider [phone] Encounter Details Date Type Department Care Team Description 12/29/2019 Telephone MRI at [facility] Kristel Magdaleno [facility] [place] [address] Social History Tobacco Use Types Packs/Day [...] a two view chest xray prior. - [facility] documented in this encounter Plan of Treatment Not on filedocumented as of this encounter Visit Diagnoses Not on filedocumented in this encounter Care Teams Call Center Professional Relationship Specialty Start Date End Date Jesusita Law MD PCP - General Family Medicine 10/24/15 09/02/21 documented as of this encounter
--- OUTSIDE RECORDS SUMMARY | 2021-11-22 10:41 | XMS_ITS | Encounter Summary ---
:1945 Author Organization [facility] [place] [address] Care Team Providers Name Role Phone Jesusita Law MD Primary Care Provider [phone] Reason for Visit Diagnostic Test (Routine) - Closed Specialty Diagnoses / Procedures Referred By Contact Refer red To Contact Radiology Diagnoses Abnormal digital rectal exam Lavern Membreno MD [facility] Rad Mri Procedures MRI Pelvis wwo (Prostate) [address] [place] [address] [place] [address] Referral ID Status Reason Start Date Expiration Date Visits V isits Requested Authorized [id number] Closed Specialty 12/16/2019 06/14/2021 1 1 Service Requested Encounter Details Date Type Department Care Team Description 02/29/2020 Hospital Encounter MRI at [facility] Lavern Membreno, Sick sinus syndrome; [facility] Presence of permanent cardiac pacemaker Drive [address] [place] [address] [place], [place] [phone] [address] Social History Tobacco Use Types Packs/Day Years [...] Cardiac Device Interrogation - MRI Lalo Guerra [id number] 02/29/2020 History: 74 y.o. male with history of complete heart block and atrial arrhythmias (AT, AF, AFl) s/p Medtronic dual chamber pacemaker 06/27/2019 presents for pelvic MRI scan. He is followed by Dr. Xavier Real, cardiology in [place], [place]. He is in permanent atrial fibrillation and takes warfarin. Device Interrogation: Data Generator: Blaast [id number] Serial number: [id number] -Left-sided implant 06/27/2019 RA Lead: Medtronic [id number] Serial number: [id number] implanted 07/27/2012 RV Lead: Medtronic [id number] Serial number: [id number] implanted 07/27/2012 Diagnostics since 01/23/2020 Pacing Mode: VVIR 60/130 VT detection >150 bpm- monitor Presenting EGMs: CHINESE LANGUAGE PROFESSOR Underlying Rhythm: atrial fibrillation rate 45 bpm [...] up: as scheduled in device clinic in [place], [place] Frannie Cobian APRN 02/29/2020 Pager: [phone] documented in this encounter Plan of Treatment [...] is highly likely to be present) References: Mehralivand S1, Missael JH1, Loja S1, Smi th C1, Villarreal J1, Czarniecki M1, Gold S1, Paredes G1, Rayn K1, Lon MJ1, Wood BJ1, Briggs PA1, Choamandae PL1, Turkbefrank B1. ??A Grading System for the Assessment of Ris k of Extraprostatic Extension of Prostate Cancer at Multiparametric MRI. Radiology. 2019 Apr;290(3):709-719. doi: 10.1148/radiol.6089481529. Epub 2018Mar 02. I have personally reviewed the image(s) and the resident's interpretation and agree with the findings, Tejas caceres MD at 03/01/2020 2:02 PM Thank you for letting us participate in the care of this patient. For questions regarding this report, please contact [facility] number below. ? Narrative 03/01/2020 2:02 PM EST EXAMINATION: MRI [...] is highly likely to be present) References: Mehralivand S1, Missael JH1, Loja S1, Smi th C1, Villarreal J1, Czarniecki M1, Gold S1, Paredes G1, Rayn K1, Forrest MJ1, Wood BJ1, Briggs PA1, Choyke PL1, Turkbey B1. A Grading System for the Assessment of Ris k of Extraprostatic Extension of Prostate Cancer at Multiparametric MRI. Radiology. 2019 Apr;290(3):709-719. doi: 10.1148/radiol.1804862536. Epub 2018Mar 02. I have personally reviewed the image(s) and the resident's interpretation and agree with the findings, Tejas caceres MD at 03/01/2020 2:02 PM Thank you for letting us participate in the care of this patient. For questions regarding this report, please contact [facility] number below. Electronically signed by: Tejas reynolds MD, [facility] ([phone]), at 03/01/2020 2:02 PM Lavern Membreno MD IMG MRI ORDERABLES documented in this encounter Visit Diagnoses Diagnosis Abnormal digital rectal exam Other abnormal clinical finding Sick sinus syndrome Sinoatrial node dysfunction Presence of permanent cardiac pacemaker Cardiac pacemaker in situ documented in this encounter Care Teams Ash Handler Relationship Specialty Start Date End Date Jesusita Law MD PCP - General Family Medicine 10/24/15 09/02/21 documented as of this encounter
--- OUTSIDE RECORDS SUMMARY | 2021-11-22 10:44 | XMS_ITS ---
:1945 Author Care Team Providers Name Role Phone DR. JEFF OLIVERA Primary Care Provider [phone] DR. JEFF OLIVERA Referring Provider [phone] DR. AUDI HENAO Referring Provider [phone] Allergies Code Code System Name Reaction Severity Status Onset 703 RxNorm Amiodarone ? ? Active ? 474228 RxNorm Lipitor ? ? Active ? Medications [...] High Pt 15.0 sec 9.1-11.0 Lelo doris [facility] Laboratory & Pathology: [address] [place] [address] ? ? P ? Inr 1.50 ? Final [facility] Laboratory & Pathology: [address] [place] [address] 06/22/2019 SARS CoV 2 ? Upper nasopharyngeal ? F inal [facility] (COVID-19), Source Labor atory QL, general activities therapist-PCR, & Respiratory Patho logy: Specimen [address] [place] [address] ? ? ? Sars-cov-2 not detected ? Final [facility] (Covid-19) Laborbarbara rain & Pathology: [address] [place] [address] Past Encounters None recorded. Social History Tobacco [...]
== END 2021-12-09 23:59 | disposition home or self-care (01) ==
LOC: CR 10:00
PROVIDERS: PCP Family Medicine; Referring Provider Thoracic Surgery (Cardiothoracic Vascular Surgery); Visit Provider Internal Medicine Cardiovascular Disease
DX: Z51.89 Encounter for other specified aftercare (principal); I25.10 Atherosclerotic heart disease of native coronary artery without angina pectoris; Z95.1 Presence of aortocoronary bypass graft
CPT/HCPCS: S9472

== ENCOUNTER 2021-12-16 10:17 | Emergency (ER) | payer MEDICARE, SELFPAY ==
[2021-12-16 10:38] VITALS: BP 121/57; PULSE 86; RESP 18; TEMP 36.8; O2SAT 98
[2021-12-16] MEDS: Doxycycline Hyclate 100 MG CAP 200 MG PO (10:48)
--- NOTE | 2021-12-16 12:50 | ED.GENADUL_ITS ---
Discharge Plan Disposition Patient Disposition: HOME Condition: Stable Discharge Details Clinical Impression: Tick bite Primary Care Provider: Jesusita Law ED Provider: Vanessa Stanley Discharge Instructions Instructions: Tick Bite (ED) Additional Instructions: Take a single dose of doxycycline, Lyme titer in 4 to 6-week The tick parts will look themselves out on their own, you may apply bacitracin warm compresses as needed Return earlier should you have new or worsening complaints Referrals: Jesusita Law [Primary Care Provider] - Discharge Data Discharge Date/Time-TO BE ENTERED AT DEPARTURE: 12/16/21 10:51 Medical Decision Making Given 200 mg of doxycycline Return precautions and patient expressed understanding Lyme titer recommended in the outpatient setting Medical Records Medical records reviewed: Yes I reviewed the patient's medical records. HPI General Date/Time Provider Initiated Documentation: 12/16/21 10:44 . HPI Narrative: This 76-year-old female presents with rash for the past 5 days. She presents today for assessment as she is scheduled for surgery and wants to make sure it safe. She states that she has a little bit of burning with the rash but denies any additional complaints. She denies any fever, chills, pain to the affected area. She not taken any medications for the pain. General Stated Complaint: RashLesion ADRIANO: 5 Review of Systems All systems reviewed & are unremarkable except as noted in HPI and below PFSH All Active Problems (Updated 12/16/21 @ 10:45 by BEN Merrill) Tick bite (Acute) Social History Smoking/Tobacco Use Status: Former Tobacco Use Smoking risk assessment performed?: Yes Alcohol Intake: former Substance use type: does not use Exam Const General: cooperative and comfortable Neck Other: 3 mm of erythema noted around central area of tick bite, tick appendages noted, superficial Resp Effort & Inspection: normal respiratory effort Cardio Rate: regular rate Course Vital Signs Vital signs: Vital Signs Temperature 36.8 C 12/16/21 10:38 Pulse 86 12/16/21 10:38 Respiratory Rate 18 12/16/21 10:38 Blood Pressure 121/57 L 12/16/21 10:38 Pulse Oximetry 98 12/16/21 10:38 Temperature 36.8 C 12/16/21 10:38 Temperature Source Tympanic 12/16/21 10:38 Pulse 86 12/16/21 10:38 Respiratory Rate 18 12/16/21 10:38 Respiratory Effort 12/16/21 10:43 Blood Pressure 121/57 L 12/16/21 10:38 Blood Pressure Position Sitting 12/16/21 10:38 Pulse Oximetry 98 12/16/21 10:38 Oxygen Delivery Method Room Air 12/16/21 10:38 Oxygen Flow Rate 0 12/16/21 10:38
== END 2021-12-16 10:51 | disposition home or self-care (01) ==
PROVIDERS: Emergency Provider Physician Assistant; PCP Family Medicine
DX: S10.86XA Insect bite of other specified part of neck, initial encounter (principal); W57.XXXA Bitten or stung by nonvenomous insect and other nonvenomous arthropods, initial encounter
CPT/HCPCS: 99283

== ENCOUNTER 2022-01-03 10:05 | Outpatient (RCR) | payer MEDICARE, SELFPAY | END 2022-01-08 23:59 | disposition home or self-care (01) | LOC: CR 10:05 | PROVIDERS: PCP Family Medicine; Referring Provider Thoracic Surgery (Cardiothoracic Vascular Surgery); Visit Provider Internal Medicine Cardiovascular Disease | DX: I25.10 Atherosclerotic heart disease of native coronary artery without angina pectoris (principal); Z95.1 Presence of aortocoronary bypass graft; Z51.89 Encounter for other specified aftercare | CPT/HCPCS: S9472 ==

== ENCOUNTER 2022-01-24 10:00 | Outpatient (RCR) | payer MEDICARE, SELFPAY | END 2022-02-08 23:59 | disposition home or self-care (01) | LOC: CR 10:00 | PROVIDERS: PCP Family Medicine; Referring Provider Thoracic Surgery (Cardiothoracic Vascular Surgery); Visit Provider Internal Medicine Cardiovascular Disease | DX: I25.10 Atherosclerotic heart disease of native coronary artery without angina pectoris (principal); Z95.1 Presence of aortocoronary bypass graft; Z51.89 Encounter for other specified aftercare | CPT/HCPCS: S9472 ==

== ENCOUNTER 2024-03-10 13:12 | Outpatient (RCR) | payer SELFPAY ==
[2024-02-23 13:12] VITALS: BP 138/63; PULSE 73
[2024-02-25 13:05] VITALS: BP 146/70; PULSE 86; O2SAT 96
[2024-03-01 14:26] VITALS: BP 165/78; PULSE 87
[2024-03-03 13:29] VITALS: BP 158/75; PULSE 76; O2SAT 95
[2024-03-10 13:14] VITALS: BP 149/73; PULSE 65; O2SAT 97
== END 2024-03-11 23:59 | disposition home or self-care (01) ==
LOC: CR 13:12
PROVIDERS: PCP Family Medicine; Visit Provider Internal Medicine Cardiovascular Disease
DX: R69 Illness, unspecified (principal)

== ENCOUNTER 2024-04-07 13:38 | Outpatient (RCR) | payer SELFPAY ==
[2024-03-15 13:52] VITALS: BP 131/68; PULSE 73
[2024-03-29 13:31] VITALS: BP 135/61; PULSE 84
[2024-04-05 13:23] VITALS: BP 128/54; PULSE 81
[2024-04-07 13:52] VITALS: BP 147/80; PULSE 82
== END 2024-04-08 23:59 | disposition home or self-care (01) ==
LOC: CR 13:38
PROVIDERS: PCP Family Medicine; Visit Provider Internal Medicine Cardiovascular Disease
DX: R69 Illness, unspecified (principal)

== ENCOUNTER 2024-04-14 13:36 | Outpatient (RCR) | payer SELFPAY ==
[2024-04-09 00:10] VITALS: BP 147/80; PULSE 82
[2024-04-12 14:29] VITALS: BP 145/65; PULSE 74
[2024-04-14 13:40] VITALS: BP 113/58; PULSE 77
== END 2024-05-09 23:59 | disposition home or self-care (01) ==
LOC: CR 13:36
PROVIDERS: PCP Family Medicine; Visit Provider Internal Medicine Cardiovascular Disease
DX: R69 Illness, unspecified (principal)